=== PATIENT | female | born 1960 | race Caucasian/White ===

== ENCOUNTER → 2016-12-21 | Outpatient (CLI) | payer OTHER ==
[~2016-12-21] MED LIST: ADVIN25/60 INH; ALBU1AER9 INH; ASCO500T16 PO; ATOR-24 PO; BUSP15TA70 PO; CGN1 PO; CHOL100010 PO; CLON2TAB3 PO; CLOP1TAB15 PO; CYAN10005 PO; DEXL60CA4 PO; FERR325T51 PO; INSDGIPEN SQ; LEVO137T3 PO; LOSA50TA6 PO; LURA1TAB PO; MELO7.5T5 PO; METF1TAB53 PO; MULT-506 PO; NVLGI SC; PRAM0.256 PO; PRAM1TAB52 PO; PRAZ1CAP10 PO; PREG1CAP28 PO; RANI300T2 PO; VENL150C PO
[2016-12-21 13:09] LABS: BASO % 0.5 %; BASO ABS # 0.04 K/uL (0-0.2); COMPLETE YES; EOS % 4.3 %; HEMATOCRIT 38.5 % (37-47); IG% 0.1 %; LYMPH % 17.1 %; LYMPH ABS # 1.31 K/uL (1.2-3.4); MEAN CELL VOLUME 85.7 fL (80-100); MEAN CORPUSCULAR HEMOGLOBIN 28.5 pg (25-34); MEAN CORPUSCULAR HGB CONC 33.2 g/dl (32-36); MEAN PLATELET VOLUME 10.3 fL (7.4-10.4); MONO % 7.7 %; NEUT % 70.3 %; PLATELET COUNT 212 K/uL (130-400); RED BLOOD COUNT 4.49 M/uL (4.2-5.4); WHITE BLOOD COUNT 7.66 K/uL (4.8-10.8)
[2016-12-21 13:27] LABS: ESTIMATED AVERAGE GLUCOSE 206 mg/dl; HA1C FLAG Normal (Normal)
[2016-12-21 13:45] LABS: FERRITIN 125.1 ng/ml (8.0-388.0); THYROID STIMULATING HORMONE 0.733 uIu/ml (0.300-4.500)
[2016-12-21 14:02] LABS: RATIO 53.1 mcg/mg (0-30.0)
== END | disposition home or self-care (01) ==
LOC: C.LAB1850 11:33
PROVIDERS: ATTEND Internal Medicine
DX: E03.9 Hypothyroidism, unspecified (principal); M25.50 Pain in unspecified joint; E11.8 Type 2 diabetes mellitus with unspecified complications

== ENCOUNTER → 2017-04-01 | Outpatient (CLI) | payer OTHER ==
--- NOTE | 2017-04-01 11:54 | DIAGNOSTIC IMAGING REPORT ---
MRI OF THE LUMBAR SPINE WITHOUT IV CONTRAST CLINICAL HISTORY: Inwgvtn-Wjjggfcbi-Xwmun syndrome. Chronic low back pain. Lower extremity radiculopathy. Spinal stenosis. COMPARISON STUDY: MRI lumbar spine dated 01/01/2014. TECHNIQUE: MRI of the lumbar spine is performed using various T1 and T2-weighted sequences in the axial and sagittal planes. IV contrast was not administered for this examination. FINDINGS: Lumbar spine: Vertebral body height and alignment are maintained throughout the lumbar spine. Marrow signal intensity is heterogeneous. The transverse and spinous processes appear intact. There is no evidence of spondylolysis. No destructive bony lesion is seen. Tiny anterior osteophytes are seen at L4 and L5. Intervertebral discs: Mild degenerative disc desiccation is noted. Disc height is maintained. Spinal cord: The partially imaged spinal cord is normal in morphology and signal intensity. The conus medullaris terminates at the level of L1. The nerve roots of the cauda equina are normal in morphology. L1-L2: Unremarkable. L2-L3: Unremarkable. L3-L4: There is no significant disc bulge. Facet arthropathy is of no consequence. There is mild narrowing of the central canal at this level, likely on a congenital basis. This measures a minimum of 8.5 mm in AP diameter. L4-L5: There is minimal posterior disc bulge. In conjunction with hypertrophy of the ligamentum flavum there is minimal acquired compromise of central canal at this level. Central canal narrowing is largely on a congenital basis. The minimum AP diameter measures 8 mm. There is mild bilateral subarticular stenosis. The disc bulge may abut the exiting right L4 nerve root. Facet arthropathy is of no consequence. The neural foramina are widely patent. L5-S1: There is minimal disc bulge with annular fissure. The central canal is widely patent. Facet arthropathy causes minimal right-sided neural foraminal stenosis. Sacrum: Visualized sacrum is normal in morphology and signal intensity. Soft tissues: There is fatty atrophy of the paraspinous musculature. The partially imaged retroperitoneal structures are grossly unremarkable but incomplete assessed. IMPRESSION: 1. No acute bony abnormality is identified throughout the lumbar spine. 2. Lumbosacral spondylosis as above. There is mild narrowing of the central canal at L3-L4 and L4-L5, largely on a congenital basis. See discussion for detailed level analysis. Electronically signed by: Gaurav Fisher M.D. 04/01/2017 11:52 AM Dictated Date/Time: 04/01/2017 11:44 AM
== END | disposition home or self-care (01) ==
LOC: C.MRI 10:15
PROVIDERS: ATTEND Internal Medicine
DX: M48.06 Spinal stenosis, lumbar region (principal); Q87.2 Congenital malformation syndromes predominantly involving limbs

== ENCOUNTER → 2017-04-08 | Outpatient (CLI) | payer OTHER ==
--- NOTE | 2017-04-08 10:34 | DIAGNOSTIC IMAGING REPORT ---
LEFT HIP UNILATERAL 2 VIEWS CLINICAL HISTORY: Q87.2 [id number] Spinal stenosis both COMPARISON: None. DISCUSSION: The bones and joint spaces appear intact. There is no evidence of fracture, dislocation or bony disease. There is no evidence for soft tissue swelling. IMPRESSION: Negative study. Electronically signed by: Jose Mariscal M.D. 04/08/2017 10:33 AM Dictated Date/Time: 04/08/2017 10:33 AM
--- NOTE | 2017-04-08 10:35 | DIAGNOSTIC IMAGING REPORT ---
RIGHT HIP UNILATERAL 2 VIEWS CLINICAL HISTORY: Q87.2 [id number] Spinal stenosis both Right COMPARISON: None. DISCUSSION: The bones and joint spaces appear intact. There is no evidence of fracture, dislocation or bony disease. There is no evidence for soft tissue swelling. IMPRESSION: Negative study. Electronically signed by: Jose Mariscal M.D. 04/08/2017 10:34 AM Dictated Date/Time: 04/08/2017 10:34 AM
--- NOTE | 2017-04-08 10:38 | DIAGNOSTIC IMAGING REPORT ---
CHEST 2 VIEWS ROUTINE CLINICAL HISTORY: 56 years-old Female presenting with shortness of breath on exertion. TECHNIQUE: PA and lateral views of the chest were obtained. COMPARISON: CT chest from 03/30/2016 and chest x-ray from 11/11/2015. FINDINGS: Cardiomediastinal silhouette within normal limits. Multiple calcified mediastinal lymph nodes again noted. Lungs and pleural spaces clear. Osseous structures and upper abdomen normal. IMPRESSION: 1. No acute cardiopulmonary disease. Electronically signed by: Ulises Mcfarland 04/08/2017 10:36 AM Dictated Date/Time: 04/08/2017 10:34 AM
== END | disposition home or self-care (01) ==
LOC: C.RAD1850 09:59
PROVIDERS: ATTEND Internal Medicine
DX: M48.00 Spinal stenosis, site unspecified (principal); Q87.2 Congenital malformation syndromes predominantly involving limbs; R06.02 Shortness of breath

== ENCOUNTER → 2017-06-29 | Outpatient (CLI) | payer OTHER ==
[2017-06-29 12:35] LABS: BLOOD UREA NITROGEN 7 mg/dl (7-18); BUN/CREATININE RATIO 7.7 (10-20); CALCIUM 8.9 mg/dl (8.5-10.1); CARBON DIOXIDE 26 mmol/L (21-32); CHLORIDE 105 mmol/L (98-107); CREATININE 0.95 mg/dl (0.60-1.20); GLUCOSE 261 mg/dl (70-99); POTASSIUM 3.7 mmol/L (3.5-5.1); SODIUM 140 mmol/L (136-145)
[2017-06-29 12:41] LABS: ESTIMATED AVERAGE GLUCOSE 229 mg/dl; HA1C FLAG Normal (Normal)
[2017-06-29 12:55] LABS: THYROID STIMULATING HORMONE 0.538 uIu/ml (0.300-4.500)
== END | disposition home or self-care (01) ==
LOC: C.LAB1850 10:21
PROVIDERS: ATTEND Internal Medicine
DX: E03.9 Hypothyroidism, unspecified (principal); E11.42 Type 2 diabetes mellitus with diabetic polyneuropathy

== ENCOUNTER → 2017-09-30 | Outpatient (CLI) | payer OTHER ==
[2017-09-30 13:07] LABS: MEAN CELL VOLUME 88.3 fL (80-100); MEAN CORPUSCULAR HEMOGLOBIN 28.7 pg (25-34); MEAN CORPUSCULAR HGB CONC 32.5 g/dl (32-36); MEAN PLATELET VOLUME 10.1 fL (7.4-10.4); PLATELET COUNT 246 K/uL (130-400); RED BLOOD COUNT 4.53 M/uL (4.2-5.4)
[2017-09-30 13:39] LABS: BLOOD UREA NITROGEN 11 mg/dl (7-18); BUN/CREATININE RATIO 10.5 (10-20); CALCIUM 9.4 mg/dl (8.5-10.1); CARBON DIOXIDE 25 mmol/L (21-32); CHLORIDE 105 mmol/L (98-107); CREATININE 1.09 mg/dl (0.60-1.20); GLUCOSE 173 mg/dl (70-99); POTASSIUM 3.6 mmol/L (3.5-5.1); SODIUM 137 mmol/L (136-145)
[2017-09-30 13:51] LABS: CHOLESTEROL 160 mg/dl (0-200); HDL CHOLESTEROL 40 mg/dl; LDL CHOLESTEROL CALCULATED 72 mg/dl; TRIGLYCERIDES 241 mg/dl (0-150); VERY LOW DENSITY LIPOPROT CALC 48 mg/dl
[2017-10-01 06:26] LABS: ESTIMATED AVERAGE GLUCOSE 203 mg/dl; HA1C FLAG Normal (Normal)
== END | disposition home or self-care (01) ==
LOC: C.LAB1850 11:26
PROVIDERS: ATTEND Nurse Practitioner Family
DX: E11.8 Type 2 diabetes mellitus with unspecified complications (principal); Z79.899 Other long term (current) drug therapy; E53.8 Deficiency of other specified B group vitamins; E55.9 Vitamin D deficiency, unspecified; E03.9 Hypothyroidism, unspecified; I10 Essential (primary) hypertension; Q87.2 Congenital malformation syndromes predominantly involving limbs

== ENCOUNTER → 2017-11-17 | Day surgery (SDC) | payer OTHER ==
[2017-11-05 11:37] VITALS: Ht 165.1 cm; Wt 130.9 kg
[~2017-11-17] VITALS: Ht 165.1 cm; Wt 130.9 kg
[~2017-11-17] MED LIST changes: -ADVIN25/60 INH; +ADVIN25050 INH; +ALBU18002 NAE; -ALBU1AER9 INH; -ATOR-24 PO; +ATOR80TA PO; +BENZ-89 PO; -CGN1 PO; +CHOL1000 PO; -CHOL100010 PO; +EFFSR75 PO; +FENTANYL CITRATE INJ 50 MCG/1 ML 2 ML VIAL ONE; +FERR1TAB13 PO; -FERR325T51 PO; -LEVO137T3 PO; +LEVO150T PO; +LIDOCAINE HCL 2% 2 ML VIAL (20MG/ML) ONE; -LURA1TAB PO; +LURA80TA PO; +MELA1TAB22 PO; -NVLGI SC; +NVLGI/PEN SC; -PRAM0.256 PO; -PRAM1TAB52 PO; +PROPOFOL IV EMULSION 10 MG/ML 20 ML VIAL IV ONE; +QUET1TAB32 PO; +ROPI1TAB PO; +SODIUM CHLORIDE 0.9% 500ML 500 ML IV ONE; +SUCR1TAB29 PO; -VENL150C PO; +VENL150C56 PO
--- NOTE | 2017-11-17 09:31 | Endo History and Physical ---
History & Physical Date of Service: Nov 17, 2017. Chief Complaint: epigastric pain, reflux Referring Physician: Dr. Karimi History of Present Illness 57 yo CF who presents for EGD secondary to GERD and Epigastric pain. Past Medical History Diabetes, Arthritis, Asthma, Anxiety, Reflux, High Cholesterol, Sleep Apnea, Hypertension, Thyroid Disease, Depression Past Surgical History Hx Cardiac Surgery: No Hx Internal Defibrillator: No Hx Pacemaker: No Hx Abdominal Surgery: Yes (UMBILICAL CORD RUPTURE) Hx of Implantable Prosthesis: No Hx Post-Op Nausea and Vomiting: No Hx Cancer Surgery: No Hx Thoracic Surgery: No Hx Orthopedic: Yes (LEG VEIN SURGERY) Hx Urinary Tract Surgery: No Family History Colon CA Social History Smoking Status: Never Smoker Hx Substance Use: No Hx Alcohol Use: No Allergies Coded Allergies: Adhesives (Verified Allergy, Unknown, TAPE, 11/17/17) Aminoglycosides (Verified Allergy, Unknown, ., 11/17/17) Azithromycin (Verified Allergy, Unknown, HIVES, 11/17/17) Bacitracin (Verified Allergy, Unknown, RASH, 11/17/17) Cephalosporins (Verified Allergy, Unknown, KEFLEX, 11/17/17) Ciprofloxacin (Verified Allergy, Unknown, EYE SWELLING, 11/17/17) Clavulanic Acid (Verified Allergy, Unknown, ., 11/17/17) Erythromycin (Verified Allergy, Unknown, HIVES, 11/17/17) Hydroxyzine (Verified Allergy, Unknown, PT DOESN'T REMEMBER REACTION, 11/17) Minocycline (Verified Allergy, Unknown, HIVES, 11/17/17) Mupirocin (Verified Allergy, Unknown, RASH, 11/17/17) Neomycin (Verified Allergy, Unknown, RASH, 11/17/17) Penicillins (Verified Allergy, Unknown, HIVES, 11/17/17) Polymyxin B (Verified Allergy, Unknown, RASH, 11/17/17) Quinolones (Verified Allergy, Unknown, LEVAQUIN, 11/17/17) Tetracycline (Verified Allergy, Unknown, HIVES, 11/17/17) Topiramate (Verified Allergy, Unknown, SOB,DIZZINESS, 11/17/17) Aspirin (Verified Adverse Reaction, Intermediate, NOSEBLEEDS- CAN TAKE IBUPROFEN, 11/17/17) Current Medications Reported Home Medications Medications Dose Route/Sig Max Daily Dose Days Date Category Dose Instructions Melatonin (Melatonin-Pyridoxine) 1 Tab Tab 40 Mg PO HS 11/05/17 Reported Requip (Ropinirole HCl) 1 Mg Tab 1 Mg PO BID 11/05/17 Reported Seroquel (Quetiapine Fumarate) 50 Mg Tab 50 Mg PO HS 11/05/17 Reported Carafate (Sucralfate) 1 Gm Tab 1 Gm PO TID 11/05/17 Reported Effexor Extended Rel (Venlafaxine Hcl) 150 Mg Cap 2 Tabs PO HS 11/05/17 Reported Novolog Flexpen (Insulin Aspart) 100 Units/Ml Inj 15 Units SC TIDM 11/05/17 Reported +SLIDING SCALE Advair Diskus 250-50 Mcg/Dose (Fluticasone Prop/Salmeterol) 14 Puff/1 Inhaler Aerp 2 Puffs INH BID PRN 11/05/17 Reported Kp Ferrous Sulfate (Ferrous Sulfate) 325 Mg Tab 1 Tab PO BID 11/05/17 Reported Vitamin D3 (Cholecalciferol) 1,000 Unit Tab 3 Tabs PO DAILY 11/05/17 Reported Cogentin (Benztropine Mesylate) 1 Mg Tab 1 Mg PO HS 11/05/17 Reported Proair Respiclick (Albuterol Sulfate) 108 Mcg/Act Aer 2 [place] NEERAJ Q4H PRN 11/05/17 Reported Effexor Extended Rel (Venlafaxine Hcl) 75 Mg Capcr 75 Mg PO QPM 11/05/17 Reported Latuda (Lurasidone Hcl) 80 Mg Tab 80 Mg PO HS 11/05/17 Reported Synthroid (Levothyroxine Sodium) 150 Mcg Tab 150 Mcg PO QAM 11/05/17 Reported Lipitor (Atorvastatin) 80 Mg Tab 80 Mg PO HS 11/05/17 Reported Zantac (Ranitidine HCl) 300 Mg Tab 300 Mg PO QPM 01/04/16 Reported Ascorbic Acid 500 Mg Tab Unknown Dose PO DAILY 01/04/16 Reported Glucophage Ext Rel (Metformin Hcl) 1,000 Mg Tab 1,000 Mg PO BIDM 01/04/16 Reported Klonopin (Clonazepam) 2 Mg Tab 4 Mg PO HS 01/04/16 Reported Cozaar (Losartan Potassium) 50 Mg Tab 50 Mg PO QAM 02/21/15 Reported Lantus Solostar (Insulin Glargine) 100 Unit/Ml Inj 70 Units SQ HS 12/10/14 Reported Mobic (Meloxicam) 7.5 Mg Tab 7.5 Mg PO DAILY PRN 09/29/13 Reported Vitamin B-12 (Cyanocobalamin) 1,000 Mcg Tab 1,000 Mcg PO BID 09/11/13 Reported Dexilant (Dexlansoprazole) 60 Mg Cap 60 Mg PO QAM 09/11/13 Reported Buspar (Buspirone Hcl) 15 Mg Tab 15 Mg PO BID 04/18/13 Reported Lyrica (Pregabalin) 75 Mg Cap 150 Mg PO TID 07/22/10 Reported Prazosin (Prazosin HCl) 1 Mg Cap 3 Tabs PO HS 10/24/09 Reported Plavix (Clopidogrel Bisulfate) 75 Mg Tab 75 Mg PO QAM 07/04/09 Reported Vital Signs Weight (Kilograms): 130.91 Height (Feet): 5 Height (Inches): 5 Date Time Temp Pulse Resp B/P (MAP) Pulse Ox O2 Delivery O2 Flow Rate FiO2 11/17/17 09:28 37.1 96 18 108/70 (83) 94 Room Air Physical Exam General Appearance: WD/WN, no apparent distress Respiratory/Chest: Auscultation: breath sounds normal Cardiovascular: Heart Auscultation: RRR Abdomen: Bowel Sounds: normal Inspection & Palpation: soft, non-distended, no tenderness, guarding & rebound Assessment and Plan Assessment: 57 yo CF who presents for EGD secondary to GERD and Epigastric pain. Plan: Proceed with EGD.
--- NOTE | 2017-11-17 10:11 | Discharge Instructions ---
Endoscopy Patient Instructions Date / Procedure(s) Performed Nov 17, 2017. EGD Allergy Information Coded Allergies: Adhesives (Verified Allergy, Unknown, TAPE, 11/17/17) Aminoglycosides (Verified Allergy, Unknown, ., 11/17/17) Azithromycin (Verified Allergy, Unknown, HIVES, 11/17/17) Bacitracin (Verified Allergy, Unknown, RASH, 11/17/17) Cephalosporins (Verified Allergy, Unknown, KEFLEX, 11/17/17) Ciprofloxacin (Verified Allergy, Unknown, EYE SWELLING, 11/17/17) Clavulanic Acid (Verified Allergy, Unknown, ., 11/17/17) Erythromycin (Verified Allergy, Unknown, HIVES, 11/17/17) Hydroxyzine (Verified Allergy, Unknown, PT DOESN'T REMEMBER REACTION, 11/17) Minocycline (Verified Allergy, Unknown, HIVES, 11/17/17) Mupirocin (Verified Allergy, Unknown, RASH, 11/17/17) Neomycin (Verified Allergy, Unknown, RASH, 11/17/17) Penicillins (Verified Allergy, Unknown, HIVES, 11/17/17) Polymyxin B (Verified Allergy, Unknown, RASH, 11/17/17) Quinolones (Verified Allergy, Unknown, LEVAQUIN, 11/17/17) Tetracycline (Verified Allergy, Unknown, HIVES, 11/17/17) Topiramate (Verified Allergy, Unknown, SOB,DIZZINESS, 11/17/17) Aspirin (Verified Adverse Reaction, Intermediate, NOSEBLEEDS- CAN TAKE IBUPROFEN, 11/17/17) Discharge Date / Findings Nov 17, 2017. Gastritis s/p biopsies Medication Instructions Stopped Medication(s): Plavix stopped 11/09/17. OK to resume all medications today as prescribed Reported Home Medications Medications Dose Route/Sig Max Daily Dose Days Date Category Dose Instructions Melatonin (Melatonin-Pyridoxine) 1 Tab Tab 40 Mg PO HS 11/05/17 Reported Requip (Ropinirole HCl) 1 Mg Tab 1 Mg PO BID 11/05/17 Reported Seroquel (Quetiapine Fumarate) 50 Mg Tab 50 Mg PO HS 11/05/17 Reported Carafate (Sucralfate) 1 Gm Tab 1 Gm PO TID 11/05/17 Reported Effexor Extended Rel (Venlafaxine Hcl) 150 Mg Cap 2 Tabs PO HS 11/05/17 Reported Novolog Flexpen (Insulin Aspart) 100 Units/Ml Inj 15 Units SC TIDM 11/05/17 Reported +SLIDING SCALE Advair Diskus 250-50 Mcg/Dose (Fluticasone Prop/Salmeterol) 14 Puff/1 Inhaler Aerp 2 Puffs INH BID PRN 11/05/17 Reported Kp Ferrous Sulfate (Ferrous Sulfate) 325 Mg Tab 1 Tab PO BID 11/05/17 Reported Vitamin D3 (Cholecalciferol) 1,000 Unit Tab 3 Tabs PO DAILY 11/05/17 Reported Cogentin (Benztropine Mesylate) 1 Mg Tab 1 Mg PO HS 11/05/17 Reported Proair Respiclick (Albuterol Sulfate) 108 Mcg/Act Aer 2 [place] NEERAJ Q4H PRN 11/05/17 Reported Effexor Extended Rel (Venlafaxine Hcl) 75 Mg Capcr 75 Mg PO QPM 11/05/17 Reported Latuda (Lurasidone Hcl) 80 Mg Tab 80 Mg PO HS 11/05/17 Reported Synthroid (Levothyroxine Sodium) 150 Mcg Tab 150 Mcg PO QAM 11/05/17 Reported Lipitor (Atorvastatin) 80 Mg Tab 80 Mg PO HS 11/05/17 Reported Zantac (Ranitidine HCl) 300 Mg Tab 300 Mg PO QPM 01/04/16 Reported Ascorbic Acid 500 Mg Tab Unknown Dose PO DAILY 01/04/16 Reported Glucophage Ext Rel (Metformin Hcl) 1,000 Mg Tab 1,000 Mg PO BIDM 01/04/16 Reported Klonopin (Clonazepam) 2 Mg Tab 4 Mg PO HS 01/04/16 Reported Cozaar (Losartan Potassium) 50 Mg Tab 50 Mg PO QAM 02/21/15 Reported Lantus Solostar (Insulin Glargine) 100 Unit/Ml Inj 70 Units SQ HS 12/10/14 Reported Mobic (Meloxicam) 7.5 Mg Tab 7.5 Mg PO DAILY PRN 09/29/13 Reported Vitamin B-12 (Cyanocobalamin) 1,000 Mcg Tab 1,000 Mcg PO BID 09/11/13 Reported Dexilant (Dexlansoprazole) 60 Mg Cap 60 Mg PO QAM 09/11/13 Reported Buspar (Buspirone Hcl) 15 Mg Tab 15 Mg PO BID 04/18/13 Reported Lyrica (Pregabalin) 75 Mg Cap 150 Mg PO TID 07/22/10 Reported Prazosin (Prazosin HCl) 1 Mg Cap 3 Tabs PO HS 10/24/09 Reported Plavix (Clopidogrel Bisulfate) 75 Mg Tab 75 Mg PO QAM 07/04/09 Reported Provider Instructions Activity Restrictions - No exercising or heavy lifting for 24 hours. - Do not drink alcohol the day of the procedure. - Do not drive a car or operate machinery until the day after the procedure. - Do not make any important decisions or sign important papers in 24 hours after the procedure. Following Day: - Return to full activity which may include returning to work/school. Diet Start your diet with liquids and light foods (jello, soup, juice, toast). Then eat your usual diet if not nauseated. Treatment For Common After Affects For mild abdominal pain, bloating, or excessive gas: - Rest - Eat lightly - Lie on right side Follow-Up Information Follow-up with Dr. Karimi as scheduled Anesthesia Information What You Should Know You have had a procedure that required some medicine to reduce anxiety and discomfort. This treatment is called moderate sedation. After receiving the treatment, you may be sleepy, but you will be able to breathe on your own. The effects of the treatment may last for several hours. Follow these instructions along with Activity/Diet recommendations noted above: * Do NOT do anything where dizziness or clumsiness would be dangerous. * Rest quietly at home today, then you can be up and about tomorrow. * Have a responsible person stay with you the rest of today. * You may have had an I.V. today. If so, you may take the dressing off later today. Recommendations Call your doctor if: * Trouble breathing * Continuous vomiting for more than 24 hours * Temperature above 101 degrees * Severe abdominal pain or bloating * Pain not relieved by pain medicine ordered * There is increased drainage or redness from any incision * A large amount of rectal bleeding greater than 2-3 tablespoons. (If you had a polyp/s removed or have hemorrhoids, a small amount of blood - from the rectum is to be expected.) * You have any unanswered questions or concerns. IN THE EVENT OF A SERIOUS EMERGENCY, GO TO THE NEAREST EMERGENCY ROOM Your discharge instructions were prepared by provider Lennox Franklin. Patient Instructions Signature Page Calista Pickering Patient (or Guardian) Signature/Date: I have read and understand the instructions given to me by my caregivers. Caregiver/RN/Doctor Signature/Date: The above-named patient and/or guardian has received patient instructions on this date. + Original Patient Signature Page (only) stays with chart. Please make copy for patient.
--- NOTE | 2017-11-17 10:20 | GI REPORT ---
Procedure Date: 11/17/2017 9:56 AM Procedure: Upper GI endoscopy Indications: Epigastric abdominal pain Medicines: Monitored Anesthesia Care Complications: No immediate complications. Estimated Blood Loss: Estimated blood loss: none. Procedure: Pre-Anesthesia Assessment: - Prior to the procedure, a History and Physical was performed, and patient medications and allergies were reviewed. The patient's tolerance of previous anesthesia was also reviewed. The risks and benefits of the procedure and the sedation options and risks were discussed with the patient. All questions were answered, and informed consent was obtained. Prior Anticoagulants: The patient has taken Plavix (clopidogrel), last dose was 7 days prior to procedure. ASA Grade Assessment: III - A patient with severe systemic disease. After reviewing the risks and benefits, the patient was deemed in satisfactory condition to undergo the procedure. After obtaining informed consent, the endoscope was passed under direct vision. Throughout the procedure, the patient's blood pressure, pulse, and oxygen saturations were monitored continuously. The scope was introduced through the mouth, and advanced to the second part of duodenum. The upper GI endoscopy was accomplished without difficulty. The patient tolerated the procedure well. Findings: The esophagus was normal. Localized moderate inflammation characterized by erythema was found in the gastric antrum. Biopsies were taken with a cold forceps for histology. The examined duodenum was normal. Impression: - Normal esophagus. - Gastritis. Biopsied. - Normal examined duodenum. Recommendation: - Resume previous diet. - Continue present medications. - Await pathology results. - Return to primary care physician as previously scheduled. Lennox Franklin, DO 11/17/2017 10:20:23 AM This report has been signed electronically. Note Initiated On: 11/17/2017 9:56 AM I attest to the content of the Intraoperative Record and orders documented therein, exceptions below
[2017-11-17 10:43] VITALS: BP 116/70; PULSE 87; O2SAT 96
--- NOTE | 2017-11-17 11:00 | Anesthesiology Progress Note ---
Anesthesia Post Op Note Date & Time Nov 17, 2017 at 11:00 Vital Signs Pain Intensity: 0 Vital Signs Past 12 Hours Date Time Temp Pulse Resp B/P (MAP) Pulse Ox O2 Delivery O2 Flow Rate FiO2 11/17/17 10:43 87 18 116/70 (85) 96 Room Air 11/17/17 10:28 93 18 107/68 (81) 96 Room Air 11/17/17 10:13 94 18 93/72 (79) 96 Room Air 11/17/17 09:28 37.1 96 18 108/70 (83) 94 Room Air Notes Mental Status: alert / awake / arousable, participated in evaluation Pt Amnestic to Procedure: Yes Nausea / Vomiting: adequately controlled Pain: adequately controlled Airway Patency, RR, SpO2: stable & adequate BP & HR: stable & adequate Hydration State: stable & adequate Anesthetic Complications: no major complications apparent
== END | disposition home or self-care (01) ==
LOC: C.GI 08:49
PROVIDERS: ATTEND Internal Medicine
DX: K29.50 Unspecified chronic gastritis without bleeding (principal); E11.9 Type 2 diabetes mellitus without complications; E66.01 Morbid (severe) obesity due to excess calories; Z86.718 Personal history of other venous thrombosis and embolism; Z68.42 Body mass index [BMI] 45.0-49.9, adult; F32.9 Major depressive disorder, single episode, unspecified; F41.9 Anxiety disorder, unspecified; J45.909 Unspecified asthma, uncomplicated; M19.90 Unspecified osteoarthritis, unspecified site; G47.33 Obstructive sleep apnea (adult) (pediatric); K21.9 Gastro-esophageal reflux disease without esophagitis; Z79.899 Other long term (current) drug therapy; Z79.4 Long term (current) use of insulin; Z79.02 Long term (current) use of antithrombotics/antiplatelets

== ENCOUNTER → 2017-12-02 | Outpatient (CLI) | payer OTHER ==
[~2017-12-02] MED LIST changes: -FENTANYL CITRATE INJ 50 MCG/1 ML 2 ML VIAL ONE; -LIDOCAINE HCL 2% 2 ML VIAL (20MG/ML) ONE; -MULT-506 PO; -PROPOFOL IV EMULSION 10 MG/ML 20 ML VIAL IV ONE; -SODIUM CHLORIDE 0.9% 500ML 500 ML IV ONE
--- NOTE | 2017-12-02 16:10 | DIAGNOSTIC IMAGING REPORT ---
L HIP UNILATERAL 2 VIEWS CLINICAL HISTORY: LEFT HIP PAIN COMPARISON: 04/08/2017 DISCUSSION: No fractures or dislocations are visualized. There are no erosive or destructive changes. The joint space appears well-preserved for age. IMPRESSION: Unremarkable conventional radiographic evaluation of the left hip Electronically signed by: Parish Anna M.D. 12/02/2017 4:09 PM Dictated Date/Time: 12/02/2017 4:08 PM
== END | disposition home or self-care (01) ==
LOC: C.RAD1850 15:34
PROVIDERS: ATTEND Internal Medicine
DX: M25.552 Pain in left hip (principal); E03.9 Hypothyroidism, unspecified; Z11.59 Encounter for screening for other viral diseases

== ENCOUNTER 2018-11-30 12:09 | Inpatient (IN) ==
[2018-11-30] MEDS ORDERED: MoRPHine SULFATE 4 MG/ML 1 ML CARP\\VIAL IV STA (12:58)
[2018-11-30] MEDS ORDERED: ONDANSETRON INJ 2 MG/ML 2 ML VIAL IV STA (12:58)
[2018-11-30 13:18] LABS: Basophils # (auto) 0.02 K/uL (0-0.2); Basophils % (auto) 0.3 %; Eosinophils # (auto) 0.15 K/uL (0-0.5); Eosinophils % (auto) 1.9 %; Hematocrit (blood only) 35.9 % (37-47); Hemoglobin 11.8 g/dL (12.0-16.0); Immature Granulocytes # (auto) 0.01 K/uL (0.00-0.02); Immature Granulocytes % (auto) 0.1 %; Lymphocytes # (auto) 1.55 K/uL (1.2-3.4); Lymphocytes % (auto) 19.6 %; Mean Corpuscular Hgb Conc 32.9 g/dL (32-36); Mean Corpuscular Volume 86.3 fL (80-100); Mean Platelet Volume 9.5 fL (7.4-10.4); Monocytes # (auto) 0.41 K/uL (0.11-0.59); Monocytes % (auto) 5.2 %; Neutrophils # (auto) 5.75 K/uL (1.4-6.5); Neutrophils % (auto) 72.9 %; Platelet Count 193 K/uL (130-400); RDW Coefficient of Variation 14.4 % (11.5-14.5); RDW Standard Deviation 45.1 fL (36.4-46.3); Red Blood Count 4.16 M/uL (4.2-5.4); White Blood Count 7.89 K/uL (4.8-10.8)
[2018-11-30 13:41] LABS: Alanine Aminotransferase 22 U/L (12-78); Albumin Level 3.3 gm/dl (3.4-5.0); Aspartate Aminotransferase 9 U/L (15-37); BUN Creatinine Ratio 10.9 (10-20); Blood Urea Nitrogen 12 mg/dl (7-18); C Reactive Protein < 0.29 mg/dl (0-0.29); Calcium 8.5 mg/dl (8.5-10.1); Carbon Dioxide 27 mmol/L (21-32); Chloride 104 mmol/L (98-107); Creatinine Clr Calc Pharmacy 76.6 ml/min; Est GFR (African American) 66.1; Glucose 336 mg/dl (70-99); Potassium 3.5 mmol/L (3.5-5.1); Sodium 137 mmol/L (136-145)
[2018-11-30 13:43] LABS: Alkaline Phosphatase 138 U/L (45-117); Bilirubin,Total 0.2 mg/dl (0.2-1); Globulin 3.5 gm/dl (2.5-4.0); Total Protein 6.8 gm/dl (6.4-8.2)
[2018-11-30 13:50] LABS: Beta-Hydroxybutyrate 1.52 mg/dl (0.2-2.81)
[2018-11-30 14:02] LABS: INR 1.1 (0.9-1.1); Prothrombin Time 11.3 Seconds (9.0-12.0)
[2018-11-30 14:36] LABS: Appearance Urine Clear (Clear); Bilirubin Urine Negative (Negative); Blood Urine Negative (Negative); Color Urine Yellow; Glucose Urine UA 3+ (Negative); Ketones Urine Negative (Negative); Leukocyte Esterase Urine Negative (Negative); Nitrite Urine Negative (Negative); Protein Urine Negative (Negative); Specific Gravity Urine 1.031 (1.000-1.030); Urobilinogen Urine Negative (Negative)
--- NOTE | 2018-11-30 15:03 | History & Physical Report ---
Date of Service November 30, 2018 Assessment & Plan (1) Epidural hematoma: Patient on Plavix, worsening back pain since October. She has frequent falls but denies recent trauma. No neurological deficits -Admit to medical floor -Neuro checks q 4 hours -Hold Plavix -Ortho consult - appreciate assistance with this case -Morphine as needed for pain control -Zofran as needed for nausea (2) Diabetes: Elevated blood sugar today. Patient reports that her blood sugar has been running in the 330's over the last few days. She reports compliance with her medications. Last HgAIC 08/19/18=8.7 -Lantus 60u qHS -ISS -Continue to monitor (3) Hypertension: Blood pressure mildly elevated at present. -Continue Losartan -Continue to monitor (4) Asthma: No respiratory distress at present. No wheeze -Albuterol PRN (5) Sleep apnea: -CPAP qHS (6) Hypothyroid: -Continue Synthroid (7) Depression: -Continue home medications -Regimen clarified with Pharmacy History of Present Illness Primary Care Provider: Ethan Karimi MD Patient is a 58yo female with multiple medical problems presenting with back pain. MRI performed today which revealed a large epidural fluid collection concerning for hematoma, less likely infection. Patient is on Plavix for history of DVT. Patient states that she has had chronic back pain for years which has been progressively worsening since October. She was taking Meloxicam for the pain but it has not been working. She denies numbness or tingling in her lower extremities. She has a stable chronic LE weakness that she reports as unchanged. No bowel or bladder complaints. She denies fevers/chills/sweats/malaise or recent illness. No additional complaints at this time. Allergies Allergy/AdvReac Type Severity Reaction Status Date / Time adhesive Allergy Unknown TAPE Verified 11/30/18 13:59 Aminoglycosides Allergy Unknown . Verified 11/30/18 13:59 bacitracin Allergy Unknown RASH Verified 11/30/18 13:59 Cephalosporins Allergy Unknown KEFLEX Verified 11/30/18 13:59 Cipro Allergy Unknown EYE Verified 11/17/17 09:11 SWELLING ciprofloxacin Allergy Unknown EYE Verified 11/30/18 13:59 SWELLING clavulanic acid Allergy Unknown . Verified 11/30/18 13:59 erythromycin base Allergy Unknown HIVES Verified 11/30/18 13:59 hydroxyzine Allergy Unknown PT DOESN'T Verified 11/30/18 13:59 REMEMBER REACTION minocycline Allergy Unknown HIVES Verified 11/30/18 13:59 mivacurium Allergy Unknown HIVES Verified 11/30/18 13:59 mupirocin Allergy Unknown RASH Verified 11/30/18 13:59 neomycin Allergy Unknown RASH Verified 11/30/18 13:59 Penicillins Allergy Unknown HIVES Verified 11/30/18 13:59 polymyxin B Allergy Unknown RASH Verified 11/30/18 13:59 Quinolones Allergy Unknown LEVAQUIN Verified 11/30/18 13:59 tetracycline Allergy Unknown HIVES Verified 11/30/18 13:59 topiramate Allergy Unknown SOB,DIZZINE Verified 11/30/18 13:59 SS aspirin AdvReac Intermediate NOSEBLEEDS- Verified 11/30/18 13:59 CAN TAKE IBUPROFEN Home Medications Home Medications Medication Instructions Recorded Confirmed Type atorvastatin [Lipitor] 80 mg PO DAILY 06/14/18 11/30/18 History benztropine 0.5 mg PO QAM 06/14/18 11/30/18 History benztropine 1 mg PO HS 06/14/18 11/30/18 History buspirone 15 mg PO BID 06/14/18 11/30/18 History calcium carbonate [Calcium 600] 600 mg PO BID 06/14/18 11/30/18 History clopidogrel [Plavix] 75 mg PO DAILY 06/14/18 11/30/18 History cyanocobalamin (vitamin B-12) 1,000 mcg PO DAILY 06/14/18 11/30/18 History [Vitamin B-12] dexlansoprazole [Dexilant] 60 mg PO DAILY 06/14/18 11/30/18 History dulaglutide [Trulicity] 1 dose SUBCUT WK 06/14/18 11/30/18 History ferrous sulfate [iron] 325 mg PO BID 06/14/18 11/30/18 History insulin glargine [Lantus Solostar 60 units SUBCUT HS 06/14/18 11/30/18 History U-100 Insulin] levothyroxine [Synthroid] 200 mcg PO DAILY 06/14/18 11/30/18 History losartan [Cozaar] 50 mg PO DAILY 06/14/18 11/30/18 History meloxicam [Mobic] 7.5 mg PO BID PRN 06/14/18 11/30/18 History metformin [Glucophage XR] 1,000 mg PO BID 06/14/18 11/30/18 History pregabalin [Lyrica] 150 mg PO TID 06/14/18 11/30/18 History venlafaxine [Effexor XR] 75 mg PO HS 06/14/18 11/30/18 History venlafaxine [Effexor XR] 300 mg PO HS 06/14/18 11/30/18 History albuterol sulfate [Ventolin HFA] 1 - 2 puff INHALATION Q4H PRN 11/30/18 11/30/18 History cholecalciferol (vitamin D3) 1 cap PO DAILY 11/30/18 11/30/18 History [Vitamin D3] clonazepam 0.25 mg PO BID 11/30/18 11/30/18 History clonazepam 2 tab PO HS 11/30/18 11/30/18 History fluticasone-salmeterol [Advair HFA] 11/30/18 History insulin aspart U-100 [Novolog 1 dose SUBCUT DIRECTED 11/30/18 11/30/18 History Flexpen U-100 Insulin] lurasidone [Latuda] 40 mg PO HS 11/30/18 11/30/18 History lurasidone [Latuda] 80 mg PO HS 11/30/18 11/30/18 History multivitamin 1 tab PO DAILY 11/30/18 11/30/18 History polyethylene glycol 3350 1 - 2 dose PO DAILY 11/30/18 11/30/18 History prazosin 1 mg PO DAILY 11/30/18 11/30/18 History prazosin 2 mg PO DAILY 11/30/18 11/30/18 History quetiapine 1 tab PO HS 11/30/18 11/30/18 History quetiapine 50 mg PO AMHS 11/30/18 11/30/18 History ranitidine HCl 300 mg PO DAILY 11/30/18 11/30/18 History ropinirole mg PO 11/30/18 History sucralfate 1 tab PO TID 11/30/18 11/30/18 History Past Med/Surg History Medical History Cellulitis (Chronic) Depression (Chronic) Staph infection (Chronic) Diabetes (Chronic) Hypertension (Chronic) Asthma (Chronic) Stomach problems (Chronic) Sleep apnea (Chronic) 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) Loss of sensation (Resolved) Neuropathy (Resolved) Family History Other Diabetes No pertinent family history Social History Preferred Language: Telugu Communication Ability: Effective Technical Service Specialist Required: No Beliefs That Will Affect Care: None Current Living Situation: Alone Current Living Situation Comment: Patient lives alone in a Townhouse Other Information That Helps Us Care for You: No Feels Safe at Home: Hesitant to Answer Safety Concerns: Afraid for Self Smoking Status: Never smoker Hx Alcohol Use: Yes Hx Substance Use: No Review of Systems All systems reviewed & are unremarkable except as noted in HPI & below Physical Exam Vital Signs (Past 24 Hours): Last Vital Signs Temp 36.6 C 11/30/18 12:16 Pulse 89 11/30/18 14:59 Resp 20 11/30/18 14:59 BP 142/93 H 11/30/18 14:59 Pulse Ox 93 11/30/18 14:59 Physical Exam: General: patient resting comfortably, NAD, non-toxic in appearance, AA&O x 4, affect flat Skin: warm, dry, intact, no rashes or lesions HEENT: NC/AT, PERRL, EOMI, anicteric sclera, conjunctiva without injection, external ear normal to inspection and nontender, nares patent, moist mucus membranes, dentition intact, no oropharyngeal lesions, neck supple, trachea midline, no LAD, no thyromegaly, no JVD Heart: +S1/S2, regular, no m/r/g Lungs: equal air entry bilaterally, no rales/rhonchi/wheezes Abd: +BS, soft, NT/ND, no masses/organomegaly/ascites Ext: warm, 2+ pulses in UE/LE bilaterally, no clubbing/cyanosis or edema Neuro: nonfocal, patient AA&O x 4, speech intact, no facial droop, moving all extremities on command with equal strength 5/5 Results & Data Laboratory Results Lab Results 11/30/18 11/30/18 11/30/18 Range/Units 13:10 13:10 13:10 WBC 7.89 (4.8-10.8) K/uL RBC 4.16 L (4.2-5.4) M/uL Hgb 11.8 L (12.0-16.0) g/dL Hct 35.9 L (37-47) % MCV 86.3 (80-100) fL MCH 28.4 (25-34) pg MCHC 32.9 (32-36) g/dL RDW Std Deviation 45.1 (36.4-46.3) fL RDW Coeff of Aleah 14.4 (11.5-14.5) % Plt Count 193 (130-400) K/uL MPV 9.5 (7.4-10.4) fL Immature Gran % (Auto) 0.1 % Neut % (Auto) 72.9 % Lymph % (Auto) 19.6 % [place] % (Auto) 5.2 % Eos % (Auto) 1.9 % Baso % (Auto) 0.3 % Immature Gran # (Auto) 0.01 (0.00-0.02) K/uL Neut # (Auto) 5.75 (1.4-6.5) K/uL Lymph # (Auto) 1.55 (1.2-3.4) K/uL [place] # (Auto) 0.41 (0.11-0.59) K/uL Eos # (Auto) 0.15 (0-0.5) K/uL Baso # (Auto) 0.02 (0-0.2) K/uL ESR (0-21) mm/hr PT Cancelled INR Cancelled Sodium 137 (136-145) mmol/L Potassium 3.5 (3.5-5.1) mmol/L Chloride 104 (98-107) mmol/L Carbon Dioxide 27 (21-32) mmol/L Anion Gap 6.0 (3-11) BUN 12 (7-18) mg/dl Creatinine 1.06 (0.6-1.2) mg/dl Est Cr Clr Drug Dosing 76.6 ml/min Est GFR ( Amer) 66.1 Est GFR (Non-Af Amer) 57.0 BUN/Creatinine Ratio 10.9 (10-20) Glucose 336 H (70-99) mg/dl Calcium 8.5 (8.5-10.1) mg/dl Phosphorus (2.5-4.9) mg/dl Magnesium (1.8-2.4) mg/dl Total Bilirubin 0.2 (0.2-1) mg/dl AST 9 L (15-37) U/L ALT 22 (12-78) U/L Alkaline Phosphatase 138 H (45-117) U/L C-Reactive Protein < 0.29 (0-0.29) mg/dl Total Protein 6.8 (6.4-8.2) gm/dl Albumin 3.3 L (3.4-5.0) gm/dl Globulin 3.5 (2.5-4.0) gm/dl Albumin/Globulin Ratio 1.0 (0.9-2) Lipase 252 (73-393) U/L Beta-Hydroxybutyric Acd 1.52 (0.2-2.81) mg/dl Urine Color Urine Appearance (Clear) Urine pH (4.5-7.5) Ur Specific [place] (1.000-1.030) Urine Protein (Negative) Urine Glucose (UA) (Negative) Urine Ketones (Negative) Urine Blood (Negative) Urine Nitrite (Negative) Urine Bilirubin (Negative) Urine Urobilinogen (Negative) Ur Leukocyte Esterase (Negative) 11/30/18 11/30/18 11/30/18 Range/Units 13:10 13:40 13:44 WBC (4.8-10.8) K/uL RBC (4.2-5.4) M/uL Hgb (12.0-16.0) g/dL Hct (37-47) % MCV (80-100) fL MCH (25-34) pg MCHC (32-36) g/dL RDW Std Deviation (36.4-46.3) fL RDW Coeff of Aleah (11.5-14.5) % Plt Count (130-400) K/uL MPV (7.4-10.4) fL Immature Gran % (Auto) % Neut % (Auto) % Lymph % (Auto) % [place] % (Auto) % Eos % (Auto) % Baso % (Auto) % Immature Gran # (Auto) (0.00-0.02) K/uL Neut # (Auto) (1.4-6.5) K/uL Lymph # (Auto) (1.2-3.4) K/uL [place] # (Auto) (0.11-0.59) K/uL Eos # (Auto) (0-0.5) K/uL Baso # (Auto) (0-0.2) K/uL ESR 24 H (0-21) mm/hr PT 11.3 INR 1.1 Sodium (136-145) mmol/L Potassium (3.5-5.1) mmol/L Chloride (98-107) mmol/L Carbon Dioxide (21-32) mmol/L Anion Gap (3-11) BUN (7-18) mg/dl Creatinine (0.6-1.2) mg/dl Est Cr Clr Drug Dosing ml/min Est GFR ( Amer) Est GFR (Non-Af Amer) BUN/Creatinine Ratio (10-20) Glucose (70-99) mg/dl Calcium (8.5-10.1) mg/dl Phosphorus (2.5-4.9) mg/dl Magnesium (1.8-2.4) mg/dl Total Bilirubin (0.2-1) mg/dl AST (15-37) U/L ALT (12-78) U/L Alkaline Phosphatase (45-117) U/L C-Reactive Protein (0-0.29) mg/dl Total Protein (6.4-8.2) gm/dl Albumin (3.4-5.0) gm/dl Globulin (2.5-4.0) gm/dl Albumin/Globulin Ratio (0.9-2) Lipase (73-393) U/L Beta-Hydroxybutyric Acd (0.2-2.81) mg/dl Urine Color Yellow Urine Appearance Clear (Clear) Urine pH 6.0 (4.5-7.5) Ur Specific [place] 1.031 H (1.000-1.030) Urine Protein Negative (Negative) Urine Glucose (UA) 3+ H (Negative) Urine Ketones Negative (Negative) Urine Blood Negative (Negative) Urine Nitrite Negative (Negative) Urine Bilirubin Negative (Negative) Urine Urobilinogen Negative (Negative) Ur Leukocyte Esterase Negative (Negative) 11/30/18 Range/Units 17:42 WBC (4.8-10.8) K/uL RBC (4.2-5.4) M/uL Hgb (12.0-16.0) g/dL Hct (37-47) % MCV (80-100) fL MCH (25-34) pg MCHC (32-36) g/dL RDW Std Deviation (36.4-46.3) fL RDW Coeff of Aleah (11.5-14.5) % Plt Count (130-400) K/uL MPV (7.4-10.4) fL Immature Gran % (Auto) % Neut % (Auto) % Lymph % (Auto) % [place] % (Auto) % Eos % (Auto) % Baso % (Auto) % Immature Gran # (Auto) (0.00-0.02) K/uL Neut # (Auto) (1.4-6.5) K/uL Lymph # (Auto) (1.2-3.4) K/uL [place] # (Auto) (0.11-0.59) K/uL Eos # (Auto) (0-0.5) K/uL Baso # (Auto) (0-0.2) K/uL ESR (0-21) mm/hr PT INR Sodium (136-145) mmol/L Potassium (3.5-5.1) mmol/L Chloride (98-107) mmol/L Carbon Dioxide (21-32) mmol/L Anion Gap (3-11) BUN (7-18) mg/dl Creatinine (0.6-1.2) mg/dl Est Cr Clr Drug Dosing ml/min Est GFR ( Amer) Est GFR (Non-Af Amer) BUN/Creatinine Ratio (10-20) Glucose (70-99) mg/dl Calcium (8.5-10.1) mg/dl Phosphorus 3.0 (2.5-4.9) mg/dl Magnesium 1.8 (1.8-2.4) mg/dl Total Bilirubin (0.2-1) mg/dl AST (15-37) U/L ALT (12-78) U/L Alkaline Phosphatase (45-117) U/L C-Reactive Protein (0-0.29) mg/dl Total Protein (6.4-8.2) gm/dl Albumin (3.4-5.0) gm/dl Globulin (2.5-4.0) gm/dl Albumin/Globulin Ratio (0.9-2) Lipase (73-393) U/L Beta-Hydroxybutyric Acd (0.2-2.81) mg/dl Urine Color Urine Appearance (Clear) Urine pH (4.5-7.5) Ur Specific [place] (1.000-1.030) Urine Protein (Negative) Urine Glucose (UA) (Negative) Urine Ketones (Negative) Urine Blood (Negative) Urine Nitrite (Negative) Urine Bilirubin (Negative) Urine Urobilinogen (Negative) Ur Leukocyte Esterase (Negative) Diagnostic Findings MR lumbar spine wo con CLINICAL HISTORY: 58 years-old Female with LUMBAR SPINE PAIN. Chronic low back pain without reported injury. COMPARISON: Lumbar spine MRI 04/01/2017. TECHNIQUE: Multiplanar, multi sequence MRI of the lumbar spine was performed without intravenous contrast. FINDINGS: Spot Remover localizer images demonstrate no gross abnormality. There is no acute fracture, subluxation or focal bone marrow edema. Signal within the imaged thoracic spinal cord appears unremarkable. Conus medullaris terminates at L1. Signal within the cauda equina also appears to be within normal limits. There is a large collection about the epidural space which is predominantly anterior and also extends posterior measuring 0.8 x 2.7 x 12.2 cm in AP, transverse and craniocaudal dimensions extending from L3 through S1-S2. This collection is predominantly T2 hyperintense and T1 isointense and displaces the thecal sac resulting in multilevel central canal narrowing as described below. T11-T12: Moderate intervertebral disc space narrowing with posterior disc- osteophyte complex formation causing mild central canal stenosis as seen on the sagittal images alone. T12-L1: No central canal or neural foraminal stenosis. L1-L2: No central canal or neural foraminal stenosis. Moderate facet arthrosis with ligamentum flavum thickening. L2-L3: Shortened pedicles with unchanged mild central canal stenosis. No significant neural foraminal narrowing. Moderate facet arthrosis with ligamentum flavum thickening. L3-L4: Epidural collection at this level contributes to severe central canal stenosis. There is moderate right and mild left foraminal narrowing. Moderate to severe facet arthrosis with ligamentum flavum thickening. L4-L5: Mild disc desiccation with mild spondylitic spurring and small posterior annular disc bulge with severe facet arthrosis and ligamentum flavum thickening. Epidural collection causes mass effect upon the thecal sac resulting in severe central canal stenosis, AP dimension of the thecal sac measuring 4 mm. Additionally, there is moderate right and mild left foraminal narrowing. L5-S1: Mild posterior intervertebral disc space narrowing with small c ircumferential annular disc bulge, spondylitic spurring with moderate facet arthrosis and ligamentum flavum thickening. Epidural collection at this level causes severe central canal stenosis, AP dimension of the thecal sac measuring 2 mm. Mild right foraminal narrowing. The left foramen is patent. IMPRESSION: 1. Large epidural fluid collection, most pronounced anteriorly, also extends into the posterior epidural space and measures up to 0.8 x 2.7 x 12.2 cm. This is suggestive of a probable epidural hematoma with epidural abscess considered less likely, however, also within the differential. Correlate clinically. 2. 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 3. Multilevel foraminal narrowing as above. 4. No acute fracture, subluxation or focal bone marrow edema. Findings were discussed with Dr. Ethan Karimi on 11/30/2018 at 11:17 AM. The above report was generated using voice recognition software. It may contain grammatical, syntax or spelling errors. Dictated: 11/30/2018 9:45 AM Transcribed: 11/30/2018 11:39 AM [facility] [id number] [email or web address] Electronically signed by: Jayson Stanford M.D. 11/30/2018 11:44 AM Dictated: 11/30/18 0945 Transcribed: 11/30/18 1139 Code Status & VTE Plan Code Status DNR per discussion with patient VTE Prophylaxis Plan VTE Prophylaxis will be ordered: Yes Critical Care Time Critical Care Time: No (1) Diabetes Diabetes mellitus longterm insulin use: with technical buyer use Diabetes mellitus type: type 2 Diabetes mellitus complication status: without complication Qualified Code(s): E11.9 - Type 2 diabetes mellitus without complications; Z79.4 - prison (current) use of insulin (2) Hypertension Hypertension type: unspecified Qualified Code(s): I10 - Essential (primary) hypertension (3) Asthma Asthma severity: mild Asthma persistence: intermittent Asthma complication type: uncomplicated Qualified Code(s): J45.20 - Mild intermittent asthma, uncomplicated (4) Sleep apnea Sleep apnea type: obstructive Qualified Code(s): G47.33 - Obstructive sleep apnea (adult) (pediatric) (5) Hypothyroid Hypothyroidism type: unspecified Qualified Code(s): E03.9 - Hypothyroidism, unspecified (6) Depression Depression Type: major depressive disorder Major depression recurrence: unspecified whether recurrent Active/Remission status: remission status unspecified Qualified Code(s): F32.9 - Major depressive disorder, single episode, unspecified
[2018-11-30] MEDS ORDERED: DEXTROSE 50% 50 ML SYRINGE IV PRN (17:28)
[2018-11-30] MEDS ORDERED: DOCUSATE SODIUM 100 MG CAP PO PRN (17:28)
[2018-11-30] MEDS ORDERED: GLUCOSE 40% GEL 15 GM TUBE PO PRN (17:28)
[2018-11-30] MEDS ORDERED: ONDANSETRON INJ 2 MG/ML 2 ML VIAL IV PRN (17:28)
[2018-11-30] MEDS ORDERED: CARBOHYDRATES FOR HYPOGLYCEMIA PO PRN (17:28)
[2018-11-30] MEDS ORDERED: GLUCAGON FOR INJ 1 MG VIAL SQ PRN (17:28)
[2018-11-30] MEDS ORDERED: GLUCOSE 10 TABS/TUBE PO PRN (17:28)
[2018-11-30 18:35] LABS: Magnesium 1.8 mg/dl (1.8-2.4)
--- NOTE | 2018-11-30 19:00 | Emergency Department Note ---
Entered by Aubrey Morocho acting as a scribe for History of Present Illness General Chief complaint: Referred by Doctor Stated complaint: BLEEDING IN BACK, MRI SHOWED Source: patient Limitations: no limitations History of Present Illness Provider complaint: Back pain Onset (ago): week(s) (5) Location: back Pain Consistency: + other (worsening) Maximum Pain Intensity: 7 Associated symptoms: no chest pain, no fever/chills and no weakness Treatments prior to arrival: none The patient is a 58 year old female who presents to the Emergency Room with complaints of worsening lower back pain over the past 5 weeks. The patient states that she has a history of chronic lower back pain and is on Meloxicam regularly. She notes that over the past 5 weeks the Melixocam is not controlling her pain any longer. She does note that she has baseline weakness in her legs bilaterally, but denies any new numbness/weakness over the past 5 weeks. She also denies any chest pain, fevers, nausea, vomiting or diarrhea. She has not experienced any bowel or bladder irregularities. The patient has not had any recent surgeries and does not have any history of back surgery. She adds that she has seen [facility] in the past for "shots in my back." The patient notes that she came to the ED today after being called about her outpatient MRI. The outpatient MRI performed today showed a "pool of blood" over her spine. She is on Plavix, but has not taken a dosage since yesterday morning. Home Medications Home Medications Medication Instructions Recorded Confirmed Type atorvastatin [Lipitor] 80 mg PO DAILY 06/14/18 11/30/18 History benztropine 0.5 mg PO QAM 06/14/18 11/30/18 History benztropine 1 mg PO HS 06/14/18 11/30/18 History buspirone 15 mg PO BID 06/14/18 11/30/18 History calcium carbonate [Calcium 600] 600 mg PO BID 06/14/18 11/30/18 History clopidogrel [Plavix] 75 mg PO DAILY 06/14/18 11/30/18 History cyanocobalamin (vitamin B-12) 1,000 mcg PO DAILY 06/14/18 11/30/18 History [Vitamin B-12] dexlansoprazole [Dexilant] 60 mg PO DAILY 06/14/18 11/30/18 History dulaglutide [Trulicity] 1 dose SUBCUT WK 06/14/18 11/30/18 History ferrous sulfate [iron] 325 mg PO BID 06/14/18 11/30/18 History insulin glargine [Lantus Solostar 60 units SUBCUT HS 06/14/18 11/30/18 History U-100 Insulin] levothyroxine [Synthroid] 200 mcg PO DAILY 06/14/18 11/30/18 History losartan [Cozaar] 50 mg PO DAILY 06/14/18 11/30/18 History meloxicam [Mobic] 7.5 mg PO BID PRN 06/14/18 11/30/18 History metformin [Glucophage XR] 1,000 mg PO BID 06/14/18 11/30/18 History pregabalin [Lyrica] 150 mg PO TID 06/14/18 11/30/18 History venlafaxine [Effexor XR] 75 mg PO HS 06/14/18 11/30/18 History venlafaxine [Effexor XR] 300 mg PO HS 06/14/18 11/30/18 History albuterol sulfate [Ventolin HFA] 1 - 2 puff INHALATION Q4H PRN 11/30/18 11/30/18 History cholecalciferol (vitamin D3) 1 cap PO DAILY 11/30/18 11/30/18 History [Vitamin D3] clonazepam 0.25 mg PO BID 11/30/18 11/30/18 History clonazepam 2 tab PO HS 11/30/18 11/30/18 History fluticasone-salmeterol [Advair HFA] 11/30/18 History insulin aspart U-100 [Novolog 1 dose SUBCUT DIRECTED 11/30/18 11/30/18 History Flexpen U-100 Insulin] lurasidone [Latuda] 40 mg PO HS 11/30/18 11/30/18 History lurasidone [Latuda] 80 mg PO HS 11/30/18 11/30/18 History multivitamin 1 tab PO DAILY 11/30/18 11/30/18 History polyethylene glycol 3350 1 - 2 dose PO DAILY 11/30/18 11/30/18 History prazosin 1 mg PO DAILY 11/30/18 11/30/18 History prazosin 2 mg PO DAILY 11/30/18 11/30/18 History quetiapine 1 tab PO HS 11/30/18 11/30/18 History quetiapine 50 mg PO AMHS 11/30/18 11/30/18 History ranitidine HCl 300 mg PO DAILY 11/30/18 11/30/18 History ropinirole mg PO 11/30/18 History sucralfate 1 tab PO TID 11/30/18 11/30/18 History Allergies Allergy/AdvReac Type Severity Reaction Status Date / Time adhesive Allergy Unknown TAPE Verified 11/30/18 13:59 Aminoglycosides Allergy Unknown . Verified 11/30/18 13:59 bacitracin Allergy Unknown RASH Verified 11/30/18 13:59 Cephalosporins Allergy Unknown KEFLEX Verified 11/30/18 13:59 Cipro Allergy Unknown EYE Verified 11/17/17 09:11 SWELLING ciprofloxacin Allergy Unknown EYE Verified 11/30/18 13:59 SWELLING clavulanic acid Allergy Unknown . Verified 11/30/18 13:59 erythromycin base Allergy Unknown HIVES Verified 11/30/18 13:59 hydroxyzine Allergy Unknown PT DOESN'T Verified 11/30/18 13:59 REMEMBER REACTION minocycline Allergy Unknown HIVES Verified 11/30/18 13:59 mivacurium Allergy Unknown HIVES Verified 11/30/18 13:59 mupirocin Allergy Unknown RASH Verified 11/30/18 13:59 neomycin Allergy Unknown RASH Verified 11/30/18 13:59 Penicillins Allergy Unknown HIVES Verified 11/30/18 13:59 polymyxin B Allergy Unknown RASH Verified 11/30/18 13:59 Quinolones Allergy Unknown LEVAQUIN Verified 11/30/18 13:59 tetracycline Allergy Unknown HIVES Verified 11/30/18 13:59 topiramate Allergy Unknown SOB,DIZZINE Verified 11/30/18 13:59 SS aspirin AdvReac Intermediate NOSEBLEEDS- Verified 11/30/18 13:59 CAN TAKE IBUPROFEN Past Med/Surg History Medical History Cellulitis (Chronic) Depression (Chronic) Staph infection (Chronic) Diabetes (Chronic) Hypertension (Chronic) Asthma (Chronic) Stomach problems (Chronic) Sleep apnea (Chronic) 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 and A total of 10 systems reviewed and were otherwise negative Physical Exam Vital Signs Vital Signs - 24 hr 11/30/18 12:16 11/30/18 13:20 11/30/18 14:59 Temperature 36.6 C Temperature Source Oral Sepsis Recent Fever Within 48 Hours No Sepsis New/Unexplained Change in Mental Status No Sepsis Action Taken by Nursing No Action Required Pulse Rate 100 H Pulse Rate [Finger] 95 H 89 Respiratory Rate 20 20 20 Respiratory Effort / Characteristics Non-Labored Spontaneous Respiratory Depth Normal Respiratory Pattern Regular Blood Pressure 157/88 H Blood Pressure [Right Arm] 155/86 H 142/93 H Blood Pressure Mean 111 Blood Pressure Mean [Right Arm] 109 109 Blood Pressure Position [Right Arm] Pulse Oximetry 97 95 93 Oxygen Delivery Method Room Air Room Air Room Air 11/30/18 16:01 11/30/18 17:15 11/30/18 17:30 Temperature 36.8 C 36.8 C Temperature Source Oral Oral Sepsis Recent Fever Within 48 Hours Sepsis New/Unexplained Change in Mental Status Sepsis Action Taken by Nursing Pulse Rate Pulse Rate [Finger] 96 H 95 H 95 H Respiratory Rate 18 18 18 Respiratory Effort / Characteristics Non-Labored Spontaneous Non-Labored Spontaneous Respiratory Depth Normal Normal Respiratory Pattern Regular Regular Blood Pressure Blood Pressure [Right Arm] 150/82 H 157/83 H 157/83 H Blood Pressure Mean Blood Pressure Mean [Right Arm] 104 107 107 Blood Pressure Position [Right Arm] Sitting Sitting Pulse Oximetry 94 93 93 Oxygen Delivery Method Room Air Room Air Room Air GENERAL: Sitting up on edge of bed, alert, well appearing, well nourished, no distress, non-toxic. Obese. EYE EXAM: normal conjunctiva. OROPHARYNX: no exudate, no erythema, lips, buccal mucosa, and tongue normal and mucous membranes are moist NECK: supple, no nuchal rigidity, no adenopathy, non-tender LUNGS: Clear to auscultation. Normal chest wall mechanics HEART: no murmurs, S1 normal and S2 normal ABDOMEN: abdomen soft, non-tender, normo-active bowel, sounds, no masses, no rebound or guarding. BACK: Back is symmetrical on inspection and there is no deformity, no midline tenderness, no CVA tenderness. SKIN: Dark rash of her right lower lumbar region UPPER EXTREMITIES: upper extremities are grossly normal. LOWER EXTREMITIES: No pitting edema. Flexion/extension in hips, knees, ankles, a nd EHL 5/5 bilaterally. Difficult to obtain patellar and Achilles reflexes bilaterally NEURO EXAM: Normal sensorium, cranial nerves II-XII grossly intact, normal speech, no gross weakness of arms, no gross weakness of legs. Course ED COURSE: Vital signs were reviewed and showed hypertension. The patients medical record was reviewed The above diagnostic studies were performed and reviewed. ED treatments and interventions as stated above. 1250: The patient was evaluated in room C6. A complete history and physical examination was performed. 1325: I discussed the case with Dr. Kaci Lantigua. He suggests admission to medicine and he will see in consult. 1332: I reviewed the patient's case with Dr. Kiran Bejarano [facility] [place] She will evaluate the patient for further management. 1423: Upon reevaluation, the patient is updated. I discussed my findings with the patient and she understands and agrees with the treatment plan. Based on the patients age, coexisting illnesses, exam and lab findings the decision to treat as an inpatient was made. The patient remained stable while under my care. The patient will be evaluated for further management. Administered Medications Discontinued Medications Morphine Sulfate (Morphine Sulfate) 4 mg IV NOW STA Stop: 11/30/18 12:59 Last Admin: 11/30/18 13:16 Dose: 4 mg Documented by: [id number] Ondansetron HCl (Zofran) 4 mg IV NOW STA Stop: 11/30/18 12:59 Last Admin: 11/30/18 13:16 Dose: 4 mg Documented by: [id number] Medical Decision Making Differential Diagnosis Differential diagnosis: Etiologies such as muscular strain, fracture, metastatic disease, disc herniation, sciatica, epidural abscess, vertebral osteomyelitis, discitis, spinal epidural hematoma, cord compression, cauda equina/conus medullaris syndrome, aortic disease, infection, shingles, renal colic, gastrointestinal, acute exacerbation of chronic back pain, as well as others were entertained. Medical Records Attestation: I reviewed the patient's medical records. Home Medications Current Medication List: was personally reviewed by me Laboratory Data Attestation: I reviewed the patient's lab results. Result diagrams: 11/30/18 13:10 11/30/18 13:10 Lab Results 11/30/18 11/30/18 11/30/18 Range/Units 13:10 13:10 13:10 WBC 7.89 (4.8-10.8) K/uL RBC 4.16 L (4.2-5.4) M/uL Hgb 11.8 L (12.0-16.0) g/dL Hct 35.9 L (37-47) % MCV 86.3 (80-100) fL MCH 28.4 (25-34) pg MCHC 32.9 (32-36) g/dL RDW Std Deviation 45.1 (36.4-46.3) fL RDW Coeff of Aleah 14.4 (11.5-14.5) % Plt Count 193 (130-400) K/uL MPV 9.5 (7.4-10.4) fL Immature Gran % (Auto) 0.1 % Neut % (Auto) 72.9 % Lymph % (Auto) 19.6 % [place] % (Auto) 5.2 % Eos % (Auto) 1.9 % Baso % (Auto) 0.3 % Immature Gran # (Auto) 0.01 (0.00-0.02) K/uL Neut # (Auto) 5.75 (1.4-6.5) K/uL Lymph # (Auto) 1.55 (1.2-3.4) K/uL [place] # (Auto) 0.41 (0.11-0.59) K/uL Eos # (Auto) 0.15 (0-0.5) K/uL Baso # (Auto) 0.02 (0-0.2) K/uL ESR (0-21) mm/hr PT Cancelled INR Cancelled Sodium 137 (136-145) mmol/L Potassium 3.5 (3.5-5.1) mmol/L Chloride 104 (98-107) mmol/L Carbon Dioxide 27 (21-32) mmol/L Anion Gap 6.0 (3-11) BUN 12 (7-18) mg/dl Creatinine 1.06 (0.6-1.2) mg/dl Est Cr Clr Drug Dosing 76.6 ml/min Est GFR ( Amer) 66.1 Est GFR (Non-Af Amer) 57.0 BUN/Creatinine Ratio 10.9 (10-20) Glucose 336 H (70-99) mg/dl Calcium 8.5 (8.5-10.1) mg/dl Phosphorus (2.5-4.9) mg/dl Magnesium (1.8-2.4) mg/dl Total Bilirubin 0.2 (0.2-1) mg/dl AST 9 L (15-37) U/L ALT 22 (12-78) U/L Alkaline Phosphatase 138 H (45-117) U/L C-Reactive Protein < 0.29 (0-0.29) mg/dl Total Protein 6.8 (6.4-8.2) gm/dl Albumin 3.3 L (3.4-5.0) gm/dl Globulin 3.5 (2.5-4.0) gm/dl Albumin/Globulin Ratio 1.0 (0.9-2) Lipase 252 (73-393) U/L Beta-Hydroxybutyric Acd 1.52 (0.2-2.81) mg/dl Urine Color Urine Appearance (Clear) Urine pH (4.5-7.5) Ur Specific [place] (1.000-1.030) Urine Protein (Negative) Urine Glucose (UA) (Negative) Urine Ketones (Negative) Urine Blood (Negative) Urine Nitrite (Negative) Urine Bilirubin (Negative) Urine Urobilinogen (Negative) Ur Leukocyte Esterase (Negative) 11/30/18 11/30/18 11/30/18 Range/Units 13:10 13:40 13:44 WBC (4.8-10.8) K/uL RBC (4.2-5.4) M/uL Hgb (12.0-16.0) g/dL Hct (37-47) % MCV (80-100) fL MCH (25-34) pg MCHC (32-36) g/dL RDW Std Deviation (36.4-46.3) fL RDW Coeff of Aleah (11.5-14.5) % Plt Count (130-400) K/uL MPV (7.4-10.4) fL Immature Gran % (Auto) % Neut % (Auto) % Lymph % (Auto) % [place] % (Auto) % Eos % (Auto) % Baso % (Auto) % Immature Gran # (Auto) (0.00-0.02) K/uL Neut # (Auto) (1.4-6.5) K/uL Lymph # (Auto) (1.2-3.4) K/uL [place] # (Auto) (0.11-0.59) K/uL Eos # (Auto) (0-0.5) K/uL Baso # (Auto) (0-0.2) K/uL ESR 24 H (0-21) mm/hr PT 11.3 INR 1.1 Sodium (136-145) mmol/L Potassium (3.5-5.1) mmol/L Chloride (98-107) mmol/L Carbon Dioxide (21-32) mmol/L Anion Gap (3-11) BUN (7-18) mg/dl Creatinine (0.6-1.2) mg/dl Est Cr Clr Drug Dosing ml/min Est GFR ( Amer) Est GFR (Non-Af Amer) BUN/Creatinine Ratio (10-20) Glucose (70-99) mg/dl Calcium (8.5-10.1) mg/dl Phosphorus (2.5-4.9) mg/dl Magnesium (1.8-2.4) mg/dl Total Bilirubin (0.2-1) mg/dl AST (15-37) U/L ALT (12-78) U/L Alkaline Phosphatase (45-117) U/L C-Reactive Protein (0-0.29) mg/dl Total Protein (6.4-8.2) gm/dl Albumin (3.4-5.0) gm/dl Globulin (2.5-4.0) gm/dl Albumin/Globulin Ratio (0.9-2) Lipase (73-393) U/L Beta-Hydroxybutyric Acd (0.2-2.81) mg/dl Urine Color Yellow Urine Appearance Clear (Clear) Urine pH 6.0 (4.5-7.5) Ur Specific [place] 1.031 H (1.000-1.030) Urine Protein Negative (Negative) Urine Glucose (UA) 3+ H (Negative) Urine Ketones Negative (Negative) Urine Blood Negative (Negative) Urine Nitrite Negative (Negative) Urine Bilirubin Negative (Negative) Urine Urobilinogen Negative (Negative) Ur Leukocyte Esterase Negative (Negative) 11/30/18 Range/Units 17:42 WBC (4.8-10.8) K/uL RBC (4.2-5.4) M/uL Hgb (12.0-16.0) g/dL Hct (37-47) % MCV (80-100) fL MCH (25-34) pg MCHC (32-36) g/dL RDW Std Deviation (36.4-46.3) fL RDW Coeff of Aleah (11.5-14.5) % Plt Count (130-400) K/uL MPV (7.4-10.4) fL Immature Gran % (Auto) % Neut % (Auto) % Lymph % (Auto) % [place] % (Auto) % Eos % (Auto) % Baso % (Auto) % Immature Gran # (Auto) (0.00-0.02) K/uL Neut # (Auto) (1.4-6.5) K/uL Lymph # (Auto) (1.2-3.4) K/uL [place] # (Auto) (0.11-0.59) K/uL Eos # (Auto) (0-0.5) K/uL Baso # (Auto) (0-0.2) K/uL ESR (0-21) mm/hr PT INR Sodium (136-145) mmol/L Potassium (3.5-5.1) mmol/L Chloride (98-107) mmol/L Carbon Dioxide (21-32) mmol/L Anion Gap (3-11) BUN (7-18) mg/dl Creatinine (0.6-1.2) mg/dl Est Cr Clr Drug Dosing ml/min Est GFR ( Amer) Est GFR (Non-Af Amer) BUN/Creatinine Ratio (10-20) Glucose (70-99) mg/dl Calcium (8.5-10.1) mg/dl Phosphorus 3.0 (2.5-4.9) mg/dl Magnesium 1.8 (1.8-2.4) mg/dl Total Bilirubin (0.2-1) mg/dl AST (15-37) U/L ALT (12-78) U/L Alkaline Phosphatase (45-117) U/L C-Reactive Protein (0-0.29) mg/dl Total Protein (6.4-8.2) gm/dl Albumin (3.4-5.0) gm/dl Globulin (2.5-4.0) gm/dl Albumin/Globulin Ratio (0.9-2) Lipase (73-393) U/L Beta-Hydroxybutyric Acd (0.2-2.81) mg/dl Urine Color Urine Appearance (Clear) Urine pH (4.5-7.5) Ur Specific [place] (1.000-1.030) Urine Protein (Negative) Urine Glucose (UA) (Negative) Urine Ketones (Negative) Urine Blood (Negative) Urine Nitrite (Negative) Urine Bilirubin (Negative) Urine Urobilinogen (Negative) Ur Leukocyte Esterase (Negative) Blood Pressure Blood Pressure Findings: Elevated blood pressure Blood Pressure Disposition: further management by hospitalist MDM Narrative Patient is a 58-year-old female presents the ER for back pain which is been getting worse since October. Patient recently had an MRI done and was referred in here for further workup. Labs were obtained and showed no significant leukocytosis or anemia. Sed rate was slightly elevated at 24. INR was normal. BMP was unremarkable. BSG was slightly elevated at 330. LFTs was unremarkable. Beta hydroxybutyric was negative. UA was negative. CRP was negative. MRI was reviewed which showed a large questionable epidural hematoma versus abscess. This was reviewed with spinal surgery which on the phone. They recommended holding the Plavix and they will evaluate her for further management. She was neurologically intact. Patient was updated bedside. She was given IV narcotics to assist with the pain. She was discussed with the hospitalist and admitted fo r further workup. 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 I confirm that the note above accurately reflects all work, treatment, procedures, and medical decision making performed by me.
[2018-11-30] MEDS: BusPIRone 15 MG TAB PO SCH (20:32)
[2018-11-30] MEDS: CALCIUM 600MG + VIT D 400 IU TAB PO SCH (20:32)
[2018-11-30] MEDS: BENZTROPINE MESYLATE 1 MG TAB PO SCH (20:32)
[2018-11-30] MEDS: VENLAFAXINE HCL XR 150 MG CAPXR PO SCH (20:33)
[2018-11-30] MEDS: FERROUS SULFATE 325 MG TAB PO SCH (20:33)
[2018-11-30] MEDS: VENLAFAXINE HCL XR 75 MG CAPXR PO SCH (20:33)
[2018-11-30] MEDS: LURASIDONE HCL 40 MG TAB PO SCH (20:34)
[2018-11-30] MEDS: QUETIAPINE FUMARATE 300 MG TABLET PO SCH (20:35)
[2018-11-30] MEDS: QUETIAPINE FUMARATE 25 MG TABLET PO SCH (20:35)
[2018-11-30] MEDS: PREGABALIN 150 MG CAP PO SCH (20:37)
[2018-11-30] MEDS: clonazePAM 1 MG TAB PO SCH (20:37)
[2018-11-30] MEDS: INSULIN ASPART 100 UNITS/ML 3 ML PEN SC SCH ×2 (20:45→20:46)
[2018-11-30] MEDS: INSULIN GLARGINE SOLOSTAR 100 UNITS/ML 3 ML PEN SQ SCH (20:47)
[2018-11-30] MEDS ORDERED: clonazePAM 1 MG TAB PO SCH (21:00)
[2018-11-30] MEDS ORDERED: BENZTROPINE MESYLATE 1 MG TAB PO SCH (21:00)
[2018-11-30] MEDS ORDERED: LURASIDONE HCL 40 MG TAB PO SCH (21:00)
[2018-12-01] MEDS: MoRPHine SULFATE 4 MG/ML 1 ML CARP\\VIAL IV PRN ×2 (00:07→12:20)
[2018-12-01] MEDS: INSULIN ASPART 100 UNITS/ML 3 ML PEN SC SCH ×5 (00:50→21:50)
[2018-12-01] MEDS: LEVOTHYROXINE SODIUM 200 MCG TABLET PO SCH (05:46)
[2018-12-01 06:44] LABS: Basophils # (auto) 0.01 K/uL (0-0.2); Basophils % (auto) 0.1 %; Eosinophils # (auto) 0.24 K/uL (0-0.5); Eosinophils % (auto) 3.2 %; Hematocrit (blood only) 36.7 % (37-47); Hemoglobin 12.1 g/dL (12.0-16.0); Immature Granulocytes # (auto) 0.01 K/uL (0.00-0.02); Immature Granulocytes % (auto) 0.1 %; Lymphocytes % (auto) 28.1 %; Mean Corpuscular Volume 87.2 fL (80-100); Mean Platelet Volume 9.8 fL (7.4-10.4); Monocytes # (auto) 0.53 K/uL (0.11-0.59); Monocytes % (auto) 7.1 %; Neutrophils # (auto) 4.59 K/uL (1.4-6.5); Neutrophils % (auto) 61.4 %; Platelet Count 191 K/uL (130-400); RDW Coefficient of Variation 14.5 % (11.5-14.5); RDW Standard Deviation 46.4 fL (36.4-46.3); Red Blood Count 4.21 M/uL (4.2-5.4); White Blood Count 7.48 K/uL (4.8-10.8)
[2018-12-01 07:27] LABS: BUN Creatinine Ratio 11.2 (10-20); Calcium 8.6 mg/dl (8.5-10.1); Creatinine Clr Calc Pharmacy 84.8 ml/min; Est GFR (African American) 75.5; Est GFR (Non-African American) 65.1; Potassium 3.2 mmol/L (3.5-5.1)
[2018-12-01] MEDS ORDERED: ACETAMINOPHEN 500 MG TAB PO STA (08:20)
[2018-12-01] MEDS ORDERED: clonazePAM 1 MG TAB PO SCH (09:00)
[2018-12-01] MEDS: clonazePAM 0.5 MG TAB PO SCH ×2 (09:09→12:27)
[2018-12-01] MEDS: QUETIAPINE FUMARATE 25 MG TABLET PO SCH ×2 (09:10→21:44)
[2018-12-01] MEDS: LOSARTAN POTASSIUM 50 MG TAB PO SCH (09:10)
[2018-12-01] MEDS: PANTOprazole 40 MG TAB PO SCH (09:10)
[2018-12-01] MEDS: ATORVASTATIN 40 MG TAB PO SCH (09:10)
[2018-12-01] MEDS: CALCIUM 600MG + VIT D 400 IU TAB PO SCH ×2 (09:10→21:43)
[2018-12-01] MEDS: BusPIRone 15 MG TAB PO SCH ×2 (09:10→21:44)
[2018-12-01] MEDS: FERROUS SULFATE 325 MG TAB PO SCH ×2 (09:10→21:43)
[2018-12-01] MEDS: PREGABALIN 150 MG CAP PO SCH ×3 (09:11→21:43)
[2018-12-01] MEDS: CHOLECALCIFEROL 1,000 UNITS TAB PO SCH (09:11)
[2018-12-01] MEDS: BENZTROPINE MESYLATE 0.5 MG TAB PO SCH (09:11)
[2018-12-01] MEDS ORDERED: POTASSIUM CHLORIDE 10 MEQ TABCR PO ONE (09:30)
--- NOTE | 2018-12-01 14:53 | Orthopedic Consultation ---
Date of Consultation December 01, 2018 Assessment & Plan (1) Epidural hematoma: This time she is evidence of an epidural hematoma extending from L3-S1. She has excellent motor strength at this time she exhibits no bowel or bladder decline.. His comfortable during our discussion today. I recommend continued observation only. Any surgical intervention be quite extensive in nature require decompression L3-4 and 5. Clearly with her health history and body habitus with this would be less than desirable. Subsequently try to avoid surgery and continue with observation. We may need to update an MRI in another week. Patient understands and agrees. Present on Admission?: Yes History of Present Illness Attending Physician: Gopi Buckner History of Present Illness This is a 58-year-old female that presents with back and right greater than left leg pain. She states the symptoms began in October. She denies any specific trauma fall or event. She denies any loss of bowel bladder function. She states she is able to ambulate relatively well but does note increased burning in her right buttock when doing so. Allergies Allergy/AdvReac Type Severity Reaction Status Date / Time adhesive Allergy Unknown TAPE Verified 11/30/18 13:59 Aminoglycosides Allergy Unknown . Verified 11/30/18 13:59 bacitracin Allergy Unknown RASH Verified 11/30/18 13:59 Cephalosporins Allergy Unknown KEFLEX Verified 11/30/18 13:59 Cipro Allergy Unknown EYE Verified 11/17/17 09:11 SWELLING ciprofloxacin Allergy Unknown EYE Verified 11/30/18 13:59 SWELLING clavulanic acid Allergy Unknown . Verified 11/30/18 13:59 erythromycin base Allergy Unknown HIVES Verified 11/30/18 13:59 hydroxyzine Allergy Unknown PT DOESN'T Verified 11/30/18 13:59 REMEMBER REACTION minocycline Allergy Unknown HIVES Verified 11/30/18 13:59 mivacurium Allergy Unknown HIVES Verified 11/30/18 13:59 mupirocin Allergy Unknown RASH Verified 11/30/18 13:59 neomycin Allergy Unknown RASH Verified 11/30/18 13:59 Penicillins Allergy Unknown HIVES Verified 11/30/18 13:59 polymyxin B Allergy Unknown RASH Verified 11/30/18 13:59 Quinolones Allergy Unknown LEVAQUIN Verified 11/30/18 13:59 tetracycline Allergy Unknown HIVES Verified 11/30/18 13:59 topiramate Allergy Unknown SOB,DIZZINE Verified 11/30/18 13:59 SS aspirin AdvReac Intermediate NOSEBLEEDS- Verified 11/30/18 13:59 CAN TAKE IBUPROFEN Home Medications Home Medications Medication Instructions Recorded Confirmed Type atorvastatin [Lipitor] 80 mg PO DAILY 06/14/18 11/30/18 History benztropine 0.5 mg PO QAM 06/14/18 11/30/18 History benztropine 1 mg PO HS 06/14/18 11/30/18 History buspirone 15 mg PO BID 06/14/18 11/30/18 History calcium carbonate [Calcium 600] 600 mg PO BID 06/14/18 11/30/18 History clopidogrel [Plavix] 75 mg PO DAILY 06/14/18 11/30/18 History cyanocobalamin (vitamin B-12) 1,000 mcg PO DAILY 06/14/18 11/30/18 History [Vitamin B-12] dexlansoprazole [Dexilant] 60 mg PO DAILY 06/14/18 11/30/18 History dulaglutide [Trulicity] 1 dose SUBCUT WK 06/14/18 11/30/18 History ferrous sulfate [iron] 325 mg PO BID 06/14/18 11/30/18 History insulin glargine [Lantus Solostar 60 units SUBCUT HS 06/14/18 11/30/18 History U-100 Insulin] levothyroxine [Synthroid] 200 mcg PO DAILY 06/14/18 11/30/18 History losartan [Cozaar] 50 mg PO DAILY 06/14/18 11/30/18 History meloxicam [Mobic] 7.5 mg PO BID PRN 06/14/18 11/30/18 History metformin [Glucophage XR] 1,000 mg PO BID 06/14/18 11/30/18 History pregabalin [Lyrica] 150 mg PO TID 06/14/18 11/30/18 History venlafaxine [Effexor XR] 75 mg PO HS 06/14/18 11/30/18 History venlafaxine [Effexor XR] 300 mg PO HS 06/14/18 11/30/18 History albuterol sulfate [Ventolin HFA] 1 - 2 puff INHALATION Q4H PRN 11/30/18 11/30/18 History cholecalciferol (vitamin D3) 1 cap PO DAILY 11/30/18 11/30/18 History [Vitamin D3] clonazepam 0.25 mg PO BID 11/30/18 11/30/18 History clonazepam 2 tab PO HS 11/30/18 11/30/18 History fluticasone-salmeterol [Advair HFA] 11/30/18 History insulin aspart U-100 [Novolog 1 dose SUBCUT DIRECTED 11/30/18 11/30/18 History Flexpen U-100 Insulin] lurasidone [Latuda] 40 mg PO HS 11/30/18 11/30/18 History lurasidone [Latuda] 80 mg PO HS 11/30/18 11/30/18 History multivitamin 1 tab PO DAILY 11/30/18 11/30/18 History polyethylene glycol 3350 1 - 2 dose PO DAILY 11/30/18 11/30/18 History prazosin 1 mg PO DAILY 11/30/18 11/30/18 History prazosin 2 mg PO DAILY 11/30/18 11/30/18 History quetiapine 1 tab PO HS 11/30/18 11/30/18 History quetiapine 50 mg PO AMHS 11/30/18 11/30/18 History ranitidine HCl 300 mg PO DAILY 11/30/18 11/30/18 History ropinirole mg PO 11/30/18 History sucralfate 1 tab PO TID 11/30/18 11/30/18 History Patient History Medical History Cellulitis (Chronic) Depression (Chronic) Staph infection (Chronic) Diabetes (Chronic) Hypertension (Chronic) Asthma (Chronic) Stomach problems (Chronic) Sleep apnea (Chronic) Diabetic peripheral neuropathy associated with type 2 diabetes mellitus (Res olved) Wflwedo-Pgucwlnht-Zsbzj syndrome (Chronic) Loss of sensation (Resolved) Neuropathy (Resolved) Social History Communication Ability: Effective Beliefs That Will Affect Care: None marital status: Current Living Situation: Alone Current Living Situation Comment: Patient lives alone in a Townhouse Other Information That Helps Us Care for You: No Feels Safe at Home: Hesitant to Answer Safety Concerns: Afraid for Self Smoking Status: Never smoker Hx Alcohol Use: Yes Hx Substance Use: No Physical Exam Vital Signs (Past 24 Hours): Last Vital Signs Temp 36.6 C 12/01/18 11:29 Pulse 78 12/01/18 11:29 Resp 16 12/01/18 11:29 BP 120/69 12/01/18 11:29 Pulse Ox 91 12/01/18 14:27 Physical Exam: On exam she exhibits plus 5 out of 5 bilateral plantar flexion dorsiflexion quadriceps. Sensory symmetric and intact.
--- NOTE | 2018-12-01 20:16 | Hospitalist Progress Note ---
Date of Service December 01, 2018 Assessment & Plan (1) Epidural hematoma: seen by Dr. Clemons - nonoperative management recommended at this time. the hope is that this will not require any surgical intervention. plavix being held. pain control. PT, OT. repeat MRI in about 1 week of l-spine. Present on Admission?: Yes (2) Morbid obesity with BMI of 45.0-49.9, adult: BMI 46 (3) Hypothyroid: cont synthroid most recent TSH 1.3 in 08/2018 (4) Depression: followed by psychiatry continue all home medications (5) Diabetes: control very adequate at this time cont lantus + novolog w meals (6) Hypertension: controlled cont home meds (7) Asthma: no issues at this time (8) Sleep apnea: cont CPAP at HS (9) DVT prophylaxis: h/o DVT but remote - about 15 years ago chemical means contraindicated due to large epidural hematoma SCDs for now Subjective pt c/o back pain - but improved from admission w/ IV pain meds. has chronic RLE paresthesias - mainly outer aspect of hip/leg - but again it is chronic. no new paresthesias. no bowel/bladder issues. no fever. patient reports that she had a fall in her bath-tub in October and her pain in the back started then. she has been taking plavix "for blood clots". last DVT was 15 years ago. Constitutional: no fever and no chills Respiratory: no cough and no dyspnea Cardiovascular: no chest pain Gastrointestinal: no abdominal pain Psychiatric: no depression sees Dr. Ramos from psych Physical Exam Vital Signs (Past 24 Hours): Last Vital Signs Temp 36.5 C 12/01/18 15:10 Pulse 78 12/01/18 15:10 Resp 19 12/01/18 15:10 BP 146/82 H 12/01/18 15:10 Pulse Ox 93 12/01/18 15:10 Constitutional: + morbidly obese; no acute distress and not ill appearing ENMT: external ear and nose normal, oropharynx normal Respiratory: normal respiratory effort, lungs clear to auscultation Cardiovascular: RRR, no murmur, no edema Heart Sounds: normal S1 and normal S2 Vessels: posterior tibial pulses present and dorsalis pedis pulses present; no JVD Gastrointestinal (Abdomen): normal bowel sounds, soft, nontender, no hepatosplenomegaly Musculoskeletal: back - mild tenderness to palpation over l-spine Neurologic: no focal motor deficits (strength 5/5 b/l LEs) Psychiatric: Orientation: alert and oriented x 3 Results & Data Laboratory Results Laboratory Results - last 24 hr 11/30/18 12/01/18 12/01/18 20:24 00:43 05:55 WBC RBC Hgb Hct MCV MCH MCHC RDW Std Deviation RDW Coeff of Aleah Plt Count MPV Immature Gran % (Auto) Neut % (Auto) Lymph % (Auto) Daniels % (Auto) Eos % (Auto) Baso % (Auto) Immature Gran # (Auto) Neut # (Auto) Lymph # (Auto) Daniels # (Auto) Eos # (Auto) Baso # (Auto) Sodium Potassium Chloride Carbon Dioxide Anion Gap BUN Creatinine Est Cr Clr Drug Dosing Est GFR ( Amer) Est GFR (Non-Af Amer) BUN/Creatinine Ratio Glucose POC Glucose 214 H 107 H 91 Calcium 12/01/18 12/01/18 12/01/18 06:23 06:23 12:09 WBC 7.48 RBC 4.21 Hgb 12.1 Hct 36.7 L MCV 87.2 MCH 28.7 MCHC 33.0 RDW Std Deviation 46.4 H RDW Coeff of Aleah 14.5 Plt Count 191 MPV 9.8 Immature Gran % (Auto) 0.1 Neut % (Auto) 61.4 Lymph % (Auto) 28.1 Daniels % (Auto) 7.1 Eos % (Auto) 3.2 Baso % (Auto) 0.1 Immature Gran # (Auto) 0.01 Neut # (Auto) 4.59 Lymph # (Auto) 2.10 Daniels # (Auto) 0.53 Eos # (Auto) 0.24 Baso # (Auto) 0.01 Sodium 141 Potassium 3.2 L Chloride 106 Carbon Dioxide 31 Anion Gap 4.0 BUN 11 Creatinine 0.95 Est Cr Clr Drug Dosing 84.8 Est GFR ( Amer) 75.5 Est GFR (Non-Af Amer) 65.1 BUN/Creatinine Ratio 11.2 Glucose 101 H POC Glucose 119 H Calcium 8.6 12/01/18 17:02 WBC RBC Hgb Hct MCV MCH MCHC RDW Std Deviation RDW Coeff of Aleah Plt Count MPV Immature Gran % (Auto) Neut % (Auto) Lymph % (Auto) Daniels % (Auto) Eos % (Auto) Baso % (Auto) Immature Gran # (Auto) Neut # (Auto) Lymph # (Auto) Daniels # (Auto) Eos # (Auto) Baso # (Auto) Sodium Potassium Chloride Carbon Dioxide Anion Gap BUN Creatinine Est Cr Clr Drug Dosing Est GFR ( Amer) Est GFR (Non-Af Amer) BUN/Creatinine Ratio Glucose POC Glucose 106 H Calcium (1) Hypothyroid Hypothyroidism type: unspecified Qualified Code(s): E03.9 - Hypothyroidism, unspecified (2) Depression Depression Type: major depressive disorder Major depression recurrence: unspecified whether recurrent Active/Remission status: remission status unspecified Qualified Code(s): F32.9 - Major depressive disorder, single episode, unspecified (3) Diabetes Diabetes mellitus complication status: without complication Diabetes mellitus dedicated intermodal truck driver insulin use: with dedicated intermodal truck driver use Diabetes mellitus type: type 2 Qualified Code(s): E11.9 - Type 2 diabetes mellitus without complications; Z79.4 - custodial (current) use of insulin (4) Hypertension Hypertension type: unspecified Qualified Code(s): I10 - Essential (primary) hypertension (5) Asthma Asthma severity: mild Asthma persistence: intermittent Asthma complication type: uncomplicated Qualified Code(s): J45.20 - Mild intermittent asthma, uncomplicated (6) Sleep apnea Sleep apnea type: obstructive Qualified Code(s): G47.33 - Obstructive sleep apnea (adult) (pediatric)
[2018-12-01] MEDS: clonazePAM 1 MG TAB PO SCH (21:43)
[2018-12-01] MEDS: LURASIDONE HCL 40 MG TAB PO SCH (21:43)
[2018-12-01] MEDS: VENLAFAXINE HCL XR 75 MG CAPXR PO SCH (21:43)
[2018-12-01] MEDS: VENLAFAXINE HCL XR 150 MG CAPXR PO SCH (21:43)
[2018-12-01] MEDS: BENZTROPINE MESYLATE 1 MG TAB PO SCH (21:44)
[2018-12-01] MEDS: QUETIAPINE FUMARATE 300 MG TABLET PO SCH (21:44)
[2018-12-01] MEDS: INSULIN GLARGINE SOLOSTAR 100 UNITS/ML 3 ML PEN SQ SCH (21:50)
[2018-12-02] MEDS: LEVOTHYROXINE SODIUM 200 MCG TABLET PO SCH (06:15)
[2018-12-02 07:08] LABS: Hematocrit (blood only) 38.3 % (37-47); Hemoglobin 12.4 g/dL (12.0-16.0); Mean Corpuscular Hgb Conc 32.4 g/dL (32-36); Mean Platelet Volume 9.7 fL (7.4-10.4); Platelet Count 208 K/uL (130-400); RDW Coefficient of Variation 14.6 % (11.5-14.5); Red Blood Count 4.35 M/uL (4.2-5.4); White Blood Count 6.64 K/uL (4.8-10.8)
[2018-12-02 07:48] LABS: BUN Creatinine Ratio 9.8 (10-20); Calcium 8.7 mg/dl (8.5-10.1); Creatinine Clr Calc Pharmacy 60.6 ml/min; Est GFR (African American) 50.2; Est GFR (Non-African American) 43.3; Potassium 3.7 mmol/L (3.5-5.1)
[2018-12-02] MEDS: HYDROCODONE/ACETAMINOPHEN 7.5/325MG TAB PO PRN ×2 (07:51→13:51)
[2018-12-02] MEDS: clonazePAM 0.5 MG TAB PO SCH ×2 (07:57→11:46)
[2018-12-02] MEDS: FERROUS SULFATE 325 MG TAB PO SCH ×2 (09:18→22:11)
[2018-12-02] MEDS: BENZTROPINE MESYLATE 0.5 MG TAB PO SCH (09:19)
[2018-12-02] MEDS: QUETIAPINE FUMARATE 25 MG TABLET PO SCH ×2 (09:19→22:15)
[2018-12-02] MEDS: BusPIRone 15 MG TAB PO SCH ×2 (09:19→22:09)
[2018-12-02] MEDS: CALCIUM 600MG + VIT D 400 IU TAB PO SCH ×2 (09:20→22:10)
[2018-12-02] MEDS: ATORVASTATIN 40 MG TAB PO SCH (09:20)
[2018-12-02] MEDS: LOSARTAN POTASSIUM 50 MG TAB PO SCH (09:20)
[2018-12-02] MEDS: CHOLECALCIFEROL 1,000 UNITS TAB PO SCH (09:21)
[2018-12-02] MEDS: PANTOprazole 40 MG TAB PO SCH (09:21)
[2018-12-02] MEDS: PREGABALIN 150 MG CAP PO SCH ×3 (09:22→22:18)
[2018-12-02] MEDS: INSULIN ASPART 100 UNITS/ML 3 ML PEN SC SCH ×4 (09:25→22:13)
[2018-12-02] MEDS: MoRPHine SULFATE 4 MG/ML 1 ML CARP\\VIAL IV PRN (11:53)
--- NOTE | 2018-12-02 13:16 | Orthopedic Progress Note ---
Date of Service December 02, 2018 Assessment & Plan (1) Epidural hematoma: At this time the patient seems to be steadily improving. She looks much more comfortable today. I have again outlined to her our plan to continue with observation and hopefully avoid any surgical intervention. She understands and agrees. Present on Admission?: Yes Subjective Patient states her back pain is improving. She states her right leg symptoms are improving she has been ambulating in her room without difficulty. She denies any change in bowel or bladder function. Physical Exam Vital Signs (Past 24 Hours): Last Vital Signs Temp 36.7 C 12/02/18 07:40 Pulse 75 12/02/18 07:40 Resp 17 12/02/18 07:40 BP 123/80 12/02/18 07:40 Pulse Ox 95 12/02/18 07:40 Physical Exam: On exam she is in bed at this time. She has reasonable strength testing bilateral extremity sensory symmetric and intact.
--- NOTE | 2018-12-02 21:00 | Hospitalist Progress Note ---
Date of Service December 02, 2018 Assessment & Plan (1) Epidural hematoma: seen by Dr. Clemons - nonoperative management recommended at this time. the hope is that this will not require any surgical intervention. plavix being held. pain control. increase norco to 10mg dose and allow q4h. PT, OT. repeat MRI in about 1 week of l-spine. neuro exam continues to remain stable. (2) Morbid obesity with BMI of 45.0-49.9, adult: BMI 46 (3) Hypothyroid: cont synthroid most recent TSH 1.3 in 08/2018 (4) Depression: followed by psychiatry continue all home medications no issues (5) Diabetes: control very adequate at this time cont lantus + novolog w meals (6) Hypertension: controlled cont home meds (7) Asthma: no issues at this time (8) Sleep apnea: cont CPAP at HS (9) DVT prophylaxis: chemical means contraindicated due to large epidural hematoma SCDs for now ambulation will check with Dr. Clemons to see how long to observe in hospital needs bowel regimen Subjective patient overall feels ok but still w/ back pain the norco helps on limited basis requiring IV morphine to stay comfortable no bowel movement ambulating Pt/Ot evals completed - cleared for home no new neuro sx's of legs Respiratory: no cough and no dyspnea Cardiovascular: no chest pain Gastrointestinal: + constipation; no abdominal pain, no nausea and no vomiting Neurologic: no localized weakness, no paralysis and no numbness Physical Exam Vital Signs (Past 24 Hours): Last Vital Signs Temp 37 C 12/02/18 15:02 Pulse 77 12/02/18 15:02 Resp 18 12/02/18 15:02 BP 132/79 12/02/18 15:02 Pulse Ox 93 12/02/18 15:02 Constitutional: + morbidly obese; no acute distress and not ill appearing ENMT: external ear and nose normal, oropharynx normal Respiratory: normal respiratory effort, lungs clear to auscultation Cardiovascular: RRR, no murmur, no edema Heart Sounds: normal S1 and normal S2 Vessels: posterior tibial pulses present and dorsalis pedis pulses present; no JVD Gastrointestinal (Abdomen): normal bowel sounds, soft, nontender, no hepatosplenomegaly Musculoskeletal: Spine: + lumbar spinal tenderness and + paraspinal tenderness Neurologic: no focal motor deficits (strength 5/5 b/l LEs) Psychiatric: Orientation: alert and oriented x 3 (1) Sleep apnea Sleep apnea type: obstructive Qualified Code(s): G47.33 - Obstructive sleep apnea (adult) (pediatric) (2) Diabetes Diabetes mellitus complication status: without complication Diabetes mellitus custodial insulin use: with vehicle refinisher use Diabetes mellitus type: type 2 Qualified Code(s): E11.9 - Type 2 diabetes mellitus without complications; Z79.4 - fox farmer (current) use of insulin (3) Depression Active/Remission status: remission status unspecified Depression Type: major depressive disorder Major depression recurrence: unspecified whether recurrent Qualified Code(s): F32.9 - Major depressive disorder, single episode, unspecified (4) Hypothyroid Hypothyroidism type: unspecified Qualified Code(s): E03.9 - Hypothyroidism, unspecified (5) Hypertension Hypertension type: unspecified Qualified Code(s): I10 - Essential (primary) hypertension (6) Asthma Asthma complication type: uncomplicated Asthma persistence: intermittent Asthma severity: mild Qualified Code(s): J45.20 - Mild intermittent asthma, uncomplicated
[2018-12-02] MEDS: VENLAFAXINE HCL XR 75 MG CAPXR PO SCH (22:11)
[2018-12-02] MEDS: VENLAFAXINE HCL XR 150 MG CAPXR PO SCH (22:11)
[2018-12-02] MEDS: LURASIDONE HCL 40 MG TAB PO SCH (22:12)
[2018-12-02] MEDS: INSULIN GLARGINE SOLOSTAR 100 UNITS/ML 3 ML PEN SQ SCH (22:12)
[2018-12-02] MEDS: SENNA 8.6 MG TAB PO SCH (22:14)
[2018-12-02] MEDS: QUETIAPINE FUMARATE 300 MG TABLET PO SCH (22:15)
[2018-12-02] MEDS: BENZTROPINE MESYLATE 1 MG TAB PO SCH (22:16)
[2018-12-02] MEDS: clonazePAM 1 MG TAB PO SCH (22:18)
[2018-12-03] MEDS: LEVOTHYROXINE SODIUM 200 MCG TABLET PO SCH (06:33)
[2018-12-03] MEDS: clonazePAM 0.5 MG TAB PO SCH ×2 (08:04→11:47)
[2018-12-03] MEDS: PREGABALIN 150 MG CAP PO SCH ×3 (08:50→21:34)
[2018-12-03] MEDS: POLYETHYLENE (MIRALAX) 17 GM PACK PO SCH (08:51)
[2018-12-03] MEDS: BENZTROPINE MESYLATE 0.5 MG TAB PO SCH (08:52)
[2018-12-03] MEDS: PANTOprazole 40 MG TAB PO SCH (08:52)
[2018-12-03] MEDS: LOSARTAN POTASSIUM 50 MG TAB PO SCH (08:52)
[2018-12-03] MEDS: ATORVASTATIN 40 MG TAB PO SCH (08:53)
[2018-12-03] MEDS: CHOLECALCIFEROL 1,000 UNITS TAB PO SCH (08:53)
[2018-12-03] MEDS: CALCIUM 600MG + VIT D 400 IU TAB PO SCH ×2 (08:53→21:33)
[2018-12-03] MEDS: QUETIAPINE FUMARATE 25 MG TABLET PO SCH ×2 (08:53→21:35)
[2018-12-03] MEDS: FERROUS SULFATE 325 MG TAB PO SCH ×2 (08:54→21:34)
[2018-12-03] MEDS: BusPIRone 15 MG TAB PO SCH ×2 (08:54→21:31)
[2018-12-03] MEDS: INSULIN ASPART 100 UNITS/ML 3 ML PEN SC SCH ×4 (08:57→21:43)
--- NOTE | 2018-12-03 10:24 | Orthopedic Progress Note ---
Date of Service December 03, 2018 Assessment & Plan (1) Epidural hematoma: At this time she appears to be progressing appropriately. Hopefully discharge home later this weekend with a follow-up MRI in another week or so. Present on Admission?: Yes Subjective Patient states her back pain is well controlled leg pain symptoms improved. Physical Exam Vital Signs (Past 24 Hours): Last Vital Signs Temp 36.9 C 12/03/18 07:26 Pulse 85 12/03/18 07:26 Resp 18 12/03/18 07:26 BP 136/70 12/03/18 07:26 Pulse Ox 90 12/03/18 07:26 Physical Exam: On exam she is resting comfortably. She is neurologically intact lower extremities.
[2018-12-03] MEDS: HYDROCODONE/ACETAMINOPHEN 10/325 TAB PO PRN ×2 (11:41→15:44)
[2018-12-03] MEDS ORDERED: BISACODYL 5 MG TABEC PO ONE (15:04)
--- NOTE | 2018-12-03 20:20 | Hospitalist Progress Note ---
Date of Service December 03, 2018 Assessment & Plan (1) Epidural hematoma: seen by Dr. Clemons - nonoperative management recommended at this time. plavix being held. pain control with norco 10's; stop morphine today to see if the norco is adequate for her pain. PT, OT. repeat MRI in about 1 week of l-spine. neuro exam again stable today. (2) Morbid obesity with BMI of 45.0-49.9, adult: BMI 46 (3) Hypothyroid: cont synthroid most recent TSH 1.3 in 08/2018 (4) Depression: followed by psychiatry continue all home medications (5) Diabetes: control for the most part acceptable; occasional high cont lantus + novolog w meals (6) Hypertension: controlled cont home meds (7) Asthma: no issues at this time (8) Sleep apnea: cont CPAP at HS (9) DVT prophylaxis: chemical means contraindicated due to large epidural hematoma SCDs and ambulation from Dr. Clemons's standpoint can d/c at any time with close outpatient follow-up and outpatient MRI needs bowel regimen due to narcotic-induced constipation hopefully home tomorrow Subjective requiring little narcotics despite such she reports "the pain is still there" and that "the oral pain meds don't help" ambulating no bowel movement since admission eating fine no new neuro symptoms of legs Respiratory: no dyspnea and no dyspnea on exertion Cardiovascular: no chest pain Gastrointestinal: no abdominal pain Physical Exam Vital Signs (Past 24 Hours): Last Vital Signs Temp 36.5 C 12/03/18 15:10 Pulse 78 12/03/18 15:10 Resp 18 12/03/18 15:10 BP 117/71 12/03/18 15:10 Pulse Ox 93 12/03/18 15:10 Constitutional: + morbidly obese; no acute distress and not ill appearing ENMT: external ear and nose normal, oropharynx normal Respiratory: normal respiratory effort, lungs clear to auscultation Cardiovascular: RRR, no murmur, no edema Heart Sounds: normal S1 and normal S2 Vessels: posterior tibial pulses present and dorsalis pedis pulses present; no JVD Gastrointestinal (Abdomen): normal bowel sounds, soft, nontender, no hepatosplenomegaly Neurologic: no focal motor deficits (strength 5/5 b/l LEs) Psychiatric: Orientation: alert and oriented x 3 Results & Data Laboratory Results Laboratory Results - last 24 hr 12/02/18 12/03/18 12/03/18 20:45 08:14 12:10 POC Glucose 158 H 138 H 219 H 12/03/18 16:57 POC Glucose 150 H (1) Sleep apnea Sleep apnea type: obstructive Qualified Code(s): G47.33 - Obstructive sleep apnea (adult) (pediatric) (2) Diabetes Diabetes mellitus complication status: without complication Diabetes mellitus termite helper insulin use: with halfway use Diabetes mellitus type: type 2 Qualified Code(s): E11.9 - Type 2 diabetes mellitus without complications; Z79.4 - ferry terminal agent (current) use of insulin (3) Depression Active/Remission status: remission status unspecified Depression Type: major depressive disorder Major depression recurrence: unspecified whether recurrent Qualified Code(s): F32.9 - Major depressive disorder, single episode, unspecified (4) Hypothyroid Hypothyroidism type: unspecified Qualified Code(s): E03.9 - Hypothyroidism, unspecified (5) Hypertension Hypertension type: unspecified Qualified Code(s): I10 - Essential (primary) hypertension (6) Asthma Asthma complication type: uncomplicated Asthma persistence: intermittent Asthma severity: mild Qualified Code(s): J45.20 - Mild intermittent asthma, uncomplicated
[2018-12-03] MEDS: VENLAFAXINE HCL XR 150 MG CAPXR PO SCH (21:33)
[2018-12-03] MEDS: BENZTROPINE MESYLATE 1 MG TAB PO SCH (21:33)
[2018-12-03] MEDS: clonazePAM 1 MG TAB PO SCH (21:34)
[2018-12-03] MEDS: VENLAFAXINE HCL XR 75 MG CAPXR PO SCH (21:34)
[2018-12-03] MEDS: LURASIDONE HCL 40 MG TAB PO SCH (21:34)
[2018-12-03] MEDS: SENNA 8.6 MG TAB PO SCH (21:35)
[2018-12-03] MEDS: QUETIAPINE FUMARATE 300 MG TABLET PO SCH (21:35)
[2018-12-03] MEDS: INSULIN GLARGINE SOLOSTAR 100 UNITS/ML 3 ML PEN SQ SCH (21:42)
[2018-12-04] MEDS: LEVOTHYROXINE SODIUM 200 MCG TABLET PO SCH (06:01)
[2018-12-04 07:34] LABS: BUN Creatinine Ratio 13.8 (10-20); Calcium 8.8 mg/dl (8.5-10.1); Creatinine Clr Calc Pharmacy 76.7 ml/min; Est GFR (African American) 66.9; Est GFR (Non-African American) 57.7; Potassium 3.9 mmol/L (3.5-5.1)
[2018-12-04] MEDS: INSULIN ASPART 100 UNITS/ML 3 ML PEN SC SCH (09:37)
[2018-12-04] MEDS: LOSARTAN POTASSIUM 50 MG TAB PO SCH (09:38)
[2018-12-04] MEDS: BENZTROPINE MESYLATE 0.5 MG TAB PO SCH (09:39)
[2018-12-04] MEDS: BusPIRone 15 MG TAB PO SCH (09:39)
[2018-12-04] MEDS: FERROUS SULFATE 325 MG TAB PO SCH (09:39)
[2018-12-04] MEDS: PANTOprazole 40 MG TAB PO SCH (09:39)
[2018-12-04] MEDS: CALCIUM 600MG + VIT D 400 IU TAB PO SCH (09:39)
[2018-12-04] MEDS: ATORVASTATIN 40 MG TAB PO SCH (09:39)
[2018-12-04] MEDS: CHOLECALCIFEROL 1,000 UNITS TAB PO SCH (09:40)
[2018-12-04] MEDS: QUETIAPINE FUMARATE 25 MG TABLET PO SCH (09:40)
[2018-12-04] MEDS: POLYETHYLENE (MIRALAX) 17 GM PACK PO SCH (09:40)
[2018-12-04] MEDS: clonazePAM 0.5 MG TAB PO SCH (09:42)
[2018-12-04] MEDS: PREGABALIN 150 MG CAP PO SCH (09:43)
--- NOTE | 2018-12-12 21:02 | Discharge Summary ---
Date of Service date of admission - 11/30/18 date of discharge - 12/04/18 Admission HPI Per Admitting Provider Patient is a 58yo female with multiple medical problems presenting with back pain. MRI performed today which revealed a large epidural fluid collection concerning for hematoma, less likely infection. Patient is on Plavix for history of DVT. Patient states that she has had chronic back pain for years which has been progressively worsening since October after she fell in her bathtub. She was taking Meloxicam for the pain but it has not been working. She denies numbness or tingling in her lower extremities. She has a stable chronic LE weakness that she reports as unchanged. No bowel or bladder complaints. She denies fevers/chills/sweats/malaise or recent illness. No additional complaints at this time. Principal Diagnosis epidural hematoma treated nonoperatively Discharge Exam Constitutional + morbidly obese; no acute distress and not ill appearing ENMT external ear and nose normal, oropharynx normal Respiratory normal respiratory effort, lungs clear to auscultation Cardiovascular RRR, no murmur, no edema Heart Sounds: normal S1 and normal S2 Vessels: posterior tibial pulses present and dorsalis pedis pulses present; no JVD Gastrointestinal (Abdomen) normal bowel sounds, soft, nontender, no hepatosplenomegaly Musculoskeletal Spine: + lumbar spinal tenderness and + paraspinal tenderness Neurologic no focal motor deficits (strength 5/5 b/l LEs) Psychiatric Orientation: alert and oriented x 3 Discharge Data Allergies Allergy/AdvReac Type Severity Reaction Status Date / Time adhesive Allergy Unknown TAPE Verified 11/30/18 13:59 Aminoglycosides Allergy Unknown . Verified 11/30/18 13:59 bacitracin Allergy Unknown RASH Verified 11/30/18 13:59 Cephalosporins Allergy Unknown KEFLEX Verified 11/30/18 13:59 Cipro Allergy Unknown EYE Verified 11/17/17 09:11 SWELLING ciprofloxacin Allergy Unknown EYE Verified 11/30/18 13:59 SWELLING clavulanic acid Allergy Unknown . Verified 11/30/18 13:59 erythromycin base Allergy Unknown HIVES Verified 11/30/18 13:59 hydroxyzine Allergy Unknown PT DOESN'T Verified 11/30/18 13:59 REMEMBER REACTION minocycline Allergy Unknown HIVES Verified 11/30/18 13:59 mivacurium Allergy Unknown HIVES Verified 11/30/18 13:59 mupirocin Allergy Unknown RASH Verified 11/30/18 13:59 neomycin Allergy Unknown RASH Verified 11/30/18 13:59 Penicillins Allergy Unknown HIVES Verified 11/30/18 13:59 polymyxin B Allergy Unknown RASH Verified 11/30/18 13:59 Quinolones Allergy Unknown LEVAQUIN Verified 11/30/18 13:59 tetracycline Allergy Unknown HIVES Verified 11/30/18 13:59 topiramate Allergy Unknown SOB,DIZZINE Verified 11/30/18 13:59 SS aspirin AdvReac Intermediate NOSEBLEEDS- Verified 11/30/18 13:59 CAN TAKE IBUPROFEN Consultations orthopedics - [facility] Manuel Clemons DO PT, OT Procedures Performed MRI lumbar spine- IMPRESSION: 1. Large epidural fluid collection, most pronounced anteriorly, also extends into the posterior epidural space and measures up to 0.8 x 2.7 x 12.2 cm. This is suggestive of a probable epidural hematoma with epidural abscess considered less likely, however, also within the differential. Correlate clinically. 2. 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 3. Multilevel foraminal narrowing as above. 4. No acute fracture, subluxation or focal bone marrow edema. Hospital Course (1) Epidural hematoma: The patient's plavix was held at time of admission. She was admitted for pain control and serial neurological exams along with spine/orthopedic consultation. Dr. Victor Manuel Clemons from orthopedics saw the patient in consult and recommended nonoperative management. It is suspected that she may have developed this hematoma when she fell in her bathtub at home in 10/2018 (in the setting of taking plavix). Her pain medication was adjusted as needed while hospitalized. She was seen by PT & OT; both felt she was appropriate for discharge home when medically ready. Serial neurological exams of the lower extremities remained normal. She never had bowel or bladder incontinence. She never had fever or infectious symptoms to suggest that the hematoma was an epidural abscess. Dr. Clemons advised outpatient follow-up in 1 week post-discharge with repeat MRI of the lumbar spine at that time. She was discharged to home with a supply of hydrocodone for pain relief. She was asked to continue holding her plavix and avoid all NSAIDs for now. (2) Morbid obesity with BMI of 45.0-49.9, adult: BMI 46 (3) Hypothyroid: cont synthroid most recent TSH 1.3 in 08/2018 (4) Depression: followed by psychiatry she will continue all home medications as previous (5) Diabetes: control was largely acceptable while hospitalized. she will continue her lantus, novolog with meals, and metformin as previous. (6) Hypertension: controlled during her stay. she will continue her home meds as previous. (7) Asthma: no issues during the hospitalization. (8) Sleep apnea: continue CPAP at HS Total Time Total Time Spent Total Time Spent (In Minutes): 35 Total Time Includes: Examination of the Patient, Discharge Planning, Medication Reconciliation and Communication With Other Providers Discharge Plan Discharge Items Patient Disposition: Home - Self-Care Reason For Visit: BACK PAIN, EPIDURAL HEMATOMA Discharge Diagnosis: Back pain due to epidural hematoma - managed conservatively with pain medication. Discharge Goals: Decrease discomfort and Therapeutic intervention Activity: As commented below Activity Comment: no strenuous activities until cleared by orthopedics Lifting Comment: no lifting over 20 pounds Driving/Machine Use Comment: OK TO DRIVE LONG YOU ARE NOT TAKING NARCOTIC PAIN MEDICATION Non-emergency contact: Primary Care Provider and Surgeon Call non-emergency contact if: you have any medication questions, your pain is not controlled, your pain is worsening and your temperature is above 100.5 Follow-up/Referrals: Pro,Ethan Lock MD [Primary Care Provider] - Thomas Clemons DO [Surgeon] - (SEE DR. CLEMONS - BACK SURGEON - WITHIN 5-7 DAYS. YOU WILL NEED A REPEAT MRI AT THAT TIME. ) Diet: Carb Consistent or DM2 Addtl Provider Instructions: From Gopi Buckner - Hospitalist: You were diagnosed with an epidural hematoma. This is a collection of blood in your back along the spine. It is possible it started when you traumatized your back from the fall in the bath tub. You were seen by Dr. Victor Manuel Clemons, spine surgeon, who recommended conservative treatment of the hematoma. In other words he recommended against surgery at this time. The hope is that this will resolve over time without any intervention. We recommend discontinuation and avoidance of the following medications: * plavix (clopidogrel) * mobic (meloxicam) * qcqb-[id number]-zieneiw anti-inflammatory pills including aspirin, motrin, ibuprofen, naprosyn, alleve, etc All of these medications could potentially worsen the bleeding in your back. For pain you may take hydrocodone-acetaminophen 1 tablet every 4 hours as needed. This product contains tylenol so DO NOT take any additional [id number] tylenol while taking the narcotic pain killer. The hydrocodone WILL make you constipated so stay on a bowel regimen of senakot with miralax. The hydrocodone can impair you and make you drowsy; thus, NO DRIVING while taking narcotic pain killers and NO alcohol use. Follow-up -- see Dr. Clemons within 5-7 days in his office. You will need a repeat MRI scan of your back. Follow-up with your family doctor within 1 week as well. Return to [facility] if -- * you have fevers over 100.5 degrees * you have worsening pain in your back despite taking the pain pills * you have weakness of the legs OR worsening numbness of the legs OR you have difficulty walking * you have incontinence of the bowels and bladder (you cannot control your urine and stool) * any other concerns Prescriptions: New sennosides [Senokot] 8.6 mg Tablet 17.2 mg PO HS Qty: 60 RF: 0 hydrocodone-acetaminophen [Billings] 10-325 mg Tablet 1 tab PO Q4H PRN (Reason: pain) Qty: 30 RF: 0 Continued levothyroxine [Synthroid] 200 mcg tablet 200 mcg PO DAILY RF: 0 buspirone 15 mg tablet 15 mg PO BID RF: 0 losartan [Cozaar] 50 mg tablet 50 mg PO DAILY RF: 0 venlafaxine [Effexor XR] 75 mg capsule,extended release 24hr 75 mg PO HS RF: 0 venlafaxine [Effexor XR] 150 mg capsule,extended release 24hr 300 mg PO HS RF: 0 cyanocobalamin (vitamin B-12) [Vitamin B-12] 1,000 mcg Tablet 1,000 mcg PO DAILY RF: 0 calcium carbonate [Calcium 600] 600 mg calcium (1,500 mg) Tablet 600 mg PO BID RF: 0 ferrous sulfate [iron] 325 mg (65 mg iron) Tablet 325 mg PO BID RF: 0 benztropine 1 mg tablet 0.5 mg PO QAM RF: 0 benztropine 1 mg tablet 1 mg PO HS RF: 0 metformin [Glucophage XR] 500 mg tablet extended release 24 hr 1,000 mg PO BID RF: 0 Lyrica 150 mg capsule 150 mg PO TID RF: 0 Lantus Solostar U-100 Insulin 100 unit/mL (3 mL) insulin pen 60 units subcut HS RF: 0 Dexilant 60 mg capsule,biphase delayed releas 60 mg PO DAILY RF: 0 Trulicity 0.75 mg/0.5 mL pen injector 1 dose subcut WK RF: 0 atorvastatin [Lipitor] 80 mg tablet 80 mg PO DAILY RF: 0 multivitamin Tablet 1 tab PO DAILY RF: 0 cholecalciferol (vitamin D3) [Vitamin D3] 2,000 unit capsule 1 cap PO DAILY RF: 0 Latuda 40 mg tablet 40 mg PO HS RF: 0 Latuda 80 mg tablet 80 mg PO HS RF: 0 quetiapine 300 mg tablet 1 tab PO HS RF: 0 quetiapine 50 mg tablet 50 mg PO AMHS RF: 0 Novolog Flexpen U-100 Insulin 100 unit/mL insulin pen 1 dose subcut DIRECTED RF: 0 ropinirole 1 mg tablet PO RF: 0 ranitidine HCl 300 mg tablet 300 mg PO DAILY RF: 0 prazosin 1 mg capsule 1 mg PO DAILY RF: 0 sucralfate 1 gram tablet 1 tab PO TID RF: 0 polyethylene glycol 3350 17 gram/dose powder 1 - 2 dose PO DAILY RF: 0 albuterol sulfate [Ventolin HFA] 90 mcg/actuation HFA aerosol inhaler 1 - 2 puff Inhalation Q4H PRN (Reason: Unknown) RF: 0 prazosin 2 mg capsule 2 mg PO DAILY RF: 0 clonazepam 0.5 mg tablet 0.25 mg PO BID RF: 0 clonazepam 0.5 mg tablet 2 tab PO HS RF: 0 Advair HFA 115-21 mcg/actuation HFA aerosol inhaler RF: 0 Discontinued clopidogrel [Plavix] 75 mg tablet 75 mg PO DAILY RF: 0 meloxicam [Mobic] 7.5 mg tablet 7.5 mg PO BID PRN (Reason: Pain) RF: 0 Stand-Alone Forms: [facility] Discharge Orders: Discharge Order (Routine); Ordered 12/04/18 Ordered By: Gopi Buckner Admission Data Admit Date/Time: 11/30/18 15:01 Attending Provider: Gopi Buckner Admit Provider: Cally Beck Primary Care Provider: Ethan Karimi Other Providers: Cally Beck ; Thomas Clemons Service: Surgical Services Other Interventions: Discharge Summary Assessment (RN) Last Done: 12/04/18 11:26 Pending Studies at Discharge: No DC Date/Time DO NOT enter until pt leaves facility: 12/04/18 13:30
== END 2018-12-04 13:30 | disposition home or self-care (01) | DRG 52 ==
LOC: ED 12:09 → SUATTDRO 15:01 → 3N 15:01

== ENCOUNTER 2019-06-27 12:33 | Inpatient (IN) ==
--- NOTE | 2019-06-27 13:37 | CT Scan Report ---
CT head/brain wo con CLINICAL HISTORY: 59 years-old Female with Stroke evaluation . Acute strokelike symptoms TECHNIQUE: Multiple axial CT images of the head were obtained without contrast. A dose lowering tech nique was utilized adhering to the principles of ALARA. CT DOSE: 537.48 mGy.cm COMPARISON: Head CT 06/05/2009. FINDINGS: No acute intracranial hemorrhage, midline shift, intracranial mass, hydrocephalus, territorial ischem ia or abnormal extra-axial collection. Patchy white matter hypodensities have progressively worsened from comparison study. The calvarium is intact. Prior bilateral cataract repair. The paranasal sinuses, mastoid air cells, a nd middle ear cavities are clear. IMPRESSION: 1. No acute intracranial abnormality identified. 2. Patchy white matter hypodensities have progressively worsened from 06/05/2009 which are nonspecific. Statistically, this would most likely represent chronic microvascular ischemic disease with underlyi ng demyelination among other etiologies also within the differential. Correlate with clinical history . The above report was generated using voice recognition software. It may contain grammatical, syntax o r spelling errors. Electronically signed by: Jayson Stanford M.D. 06/27/2019 1:36 PM
[2019-06-27 14:00] LABS: Basophils # (auto) 0.03 K/uL (0-0.2); Basophils % (auto) 0.4 %; Eosinophils # (auto) 0.19 K/uL (0-0.5); Eosinophils % (auto) 2.6 %; Hematocrit (blood only) 37.7 % (37-47); Hemoglobin 12.5 g/dL (12.0-16.0); Immature Granulocytes # (auto) 0.01 K/uL (0.00-0.02); Immature Granulocytes % (auto) 0.1 %; Lymphocytes # (auto) 1.55 K/uL (1.2-3.4); Mean Corpuscular Hemoglobin 29.1 pg (25-34); Mean Corpuscular Hgb Conc 33.2 g/dL (32-36); Mean Corpuscular Volume 87.9 fL (80-100); Mean Platelet Volume 10.3 fL (7.4-10.4); Monocytes # (auto) 0.38 K/uL (0.11-0.59); Monocytes % (auto) 5.1 %; Neutrophils # (auto) 5.22 K/uL (1.4-6.5); Neutrophils % (auto) 70.8 %; Platelet Count 210 K/uL (130-400); RDW Coefficient of Variation 14.6 % (11.5-14.5); Red Blood Count 4.29 M/uL (4.2-5.4); White Blood Count 7.38 K/uL (4.8-10.8)
[2019-06-27 14:09] LABS: INR 1.1 (0.9-1.1); Partial Thromboplastin Ratio 0.8; Partial Thromboplastin Time 22.6 Seconds (21.0-31.0); Prothrombin Time 11.4 Seconds (9.0-12.0)
[2019-06-27 14:24] LABS: Acetaminophen < 2 ug/ml (10-30); Salicylate < 1.7 mg/dl (2.8-20)
[2019-06-27 14:27] LABS: Alanine Aminotransferase 30 U/L (12-78); Albumin Globulin Ratio 0.9 (0.9-2); Albumin Level 3.4 gm/dl (3.4-5.0); Alkaline Phosphatase 94 U/L (45-117); BUN Creatinine Ratio 7.8 (10-20); Bilirubin,Total 0.4 mg/dl (0.2-1); Blood Urea Nitrogen 8 mg/dl (7-18); Calcium 9.3 mg/dl (8.5-10.1); Carbon Dioxide 27 mmol/L (21-32); Chloride 106 mmol/L (98-107); Est GFR (African American) 67.2; Est GFR (Non-African American) 57.9; Globulin 3.6 gm/dl (2.5-4.0); Glucose 146 mg/dl (70-99); Troponin I < 0.015 ng/ml (0-0.045)
[2019-06-27 14:31] LABS: Potassium 4.1 mmol/L (3.5-5.1); Sodium 143 mmol/L (136-145)
[2019-06-27] MEDS ORDERED: OPTIRAY 320 125ml IV PRN (14:42)
[2019-06-27 14:49] LABS: Aspartate Aminotransferase 16 U/L (15-37); Magnesium 1.4 mg/dl (1.8-2.4)
--- NOTE | 2019-06-27 14:57 | CT Scan Report ---
CT angio head w con CLINICAL HISTORY: 59 years-old Female presenting with ams, eval for cva. TECHNIQUE: Multidetector CT angiography of the head was performed after the administration of intrave nous contrast. 3-D volumetric and/or maximum intensity projection (MIP) images were subsequently mary nstructed for review. IV contrast: 119 mL of Optiray 320. One or more dose lowering techniques were u sed consistent with the principles of ALARA (as low as reasonably achievable), including automatic ex posure control, mA or kV adjustment to individual patient size, and/or use of iterative reconstructio n. COMPARISON: 06/27/2019. CT DOSE (mGy.cm): The estimated cumulative dose is 794.27. FINDINGS: Audio Production Instructor topogram: Unremarkable. Anterior circulation: Intracranial portions of the internal carotid arteries patent to the level of t he termini. Anterior cerebral arteries patent. Middle cerebral arteries patent. Anterior communicatin g artery patent. Posterior circulation: Codominant vertebral arteries. Intradural portions of the vertebral arteries p atent. Posterior inferior cerebellar arteries patent. Basilar artery patent. Anterior inferior cerebe llar arteries poorly visualized. Superior cerebellar arteries patent. Posterior cerebral arteries pat ent. Posterior communicating arteries patent. Dural venous sinuses: Patent. Other: Allowing for the phase of contrast, brain parenchyma within normal limits. Calvarium intact. IMPRESSION: 1. No evidence of aneurysm, focal vessel occlusion, or significant stenosis of the intracranial pancho mayra. Electronically signed by: Ulises Mcfarland M.D. 06/27/2019 2:56 PM
--- NOTE | 2019-06-27 14:57 | CT Scan Report ---
CT ANGIOGRAM OF THE NECK CLINICAL HISTORY: Change in mental status. Stroke like symptoms. COMPARISON STUDY: Carotid artery ultrasound dated 10/01/2007. TECHNIQUE: Following the IV administration of 119 of Optiray 320, CT angiogram of the neck was perfor med from the aortic arch to the skull base. Images are reviewed in the axial, sagittal, and coronal p lanes. 3-D MIPS images are created and assessed. IV contrast was administered without complication. A ll measurements were calculated based on NASCET criteria. A dose lowering technique was utilized adh ering to the principles of ALARA. CT DOSE: 794.27 mGy.cm FINDINGS: Thoracic aorta: Visualized portions of the thoracic aorta are normal in caliber. The aortic arch demo nstrates standard 3-vessel anatomy. Right carotid arterial system: The right common carotid artery is widely patent, as are the right int ernal and external carotid arteries. Left carotid arterial system: The left common carotid artery is widely patent, as are the left public health internship al and external carotid arteries. Mild atherosclerotic calcification is noted in the carotid bulb. Vertebral arteries: The vertebral arteries are patent bilaterally and codominant. Intracranial vasculature: The partially visualized intracranial vessels at the skull base are patent. Subclavian arteries: Widely patent bilaterally. Jugular veins: Widely patent bilaterally. Brain parenchyma: The visualized brain parenchyma the skull base is within normal limits. Lung apices: Partially visualized upper lobe lung parenchyma appears clear. Soft tissues: The visualized pharyngeal soft tissues are normal in appearance noting angiographic pha se technique. The oropharyngeal airway appears widely patent. The thyroid gland is enlarged and heter ogeneous. There are numerous thyroid nodules. A dominant nodule in the right lobe measures 3 cm. The salivary glands are normal in appearance. No cervical lymphadenopathy is seen. There are calcified me diastinal lymph nodes. Skeletal structures: The visualized calvarium at the skull base appears intact. The imaged cervical s pine is within normal limits. IMPRESSION: Normal CT angiogram of the neck. Electronically signed by: Gaurav Fisher M.D. 06/27/2019 2:56 PM
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
[2019-06-27] MEDS ORDERED: GLUCOSE 40% GEL 15 GM TUBE PO PRN (18:11)
[2019-06-27] MEDS ORDERED: MAGNESIUM HYDROXIDE SUSP 30 ML UDC PO PRN (18:11)
[2019-06-27] MEDS ORDERED: ACETAMINOPHEN 325 MG TAB PO PRN (18:11)
[2019-06-27] MEDS ORDERED: CARBOHYDRATES FOR HYPOGLYCEMIA PO PRN (18:11)
[2019-06-27] MEDS ORDERED: ONDANSETRON INJ 2 MG/ML 2 ML VIAL IV PRN (18:11)
[2019-06-27] MEDS ORDERED: PHARMACIST DISCHARGE MED REC CONSULT PRN (18:11)
[2019-06-27] MEDS ORDERED: GLUCOSE 10 TABS/TUBE PO PRN (18:11)
[2019-06-27] MEDS ORDERED: ALBUTEROL HFA 8 GM INHALER INH PRN (18:11)
[2019-06-27] MEDS ORDERED: GLUCAGON FOR INJ 1 MG VIAL SQ PRN (18:11)
[2019-06-27] MEDS ORDERED: DEXTROSE 50% 50 ML SYRINGE IV PRN (18:11)
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
[2019-06-27 19:43] LABS: Amphetamines+Metham, Urine Neg (Neg); Barbiturates, Urine Neg (Neg); Benzodiazepine, Urine Neg (Neg); Cocaine, Urine Neg (Neg); MDMA (Ecstacy), Urine Neg (Neg); Methadone, Urine Neg (Neg); Opiate, Urine Neg (Neg); Phencyclidine, Urine Neg (Neg)
[2019-06-27 19:47] LABS: Lyme Ab IgG w/WB Rflx Negative (Negative); Lyme Ab IgM w/WB Rflx Negative (Negative)
[2019-06-27] MEDS: POLYETHYLENE (MIRALAX) 17 GM PACK PO SCH (19:47)
[2019-06-27] MEDS: FLUTICASONE/SALMETEROL 250/50 (ADVAIR) 14 PUFF/1 INHALER INH SCH (20:05)
[2019-06-27] MEDS: ATORVASTATIN 40 MG TAB PO SCH (20:06)
[2019-06-27] MEDS: VENLAFAXINE HCL XR 150 MG CAPXR PO SCH (20:07)
[2019-06-27] MEDS: ROPINIROLE HCL 1 MG TABLET PO SCH (20:07)
[2019-06-27] MEDS: FERROUS SULFATE 325 MG TAB PO SCH (20:07)
[2019-06-27] MEDS: BusPIRone 15 MG TAB PO SCH (20:07)
[2019-06-27] MEDS: QUETIAPINE FUMARATE 300 MG TABLET PO SCH (20:07)
[2019-06-27] MEDS: PRAZOSIN HCL 1 MG CAP PO SCH (20:07)
[2019-06-27] MEDS: INSULIN GLARGINE SOLOSTAR 100 UNITS/ML 3 ML PEN SQ SCH (20:12)
[2019-06-27] MEDS: INSULIN ASPART 100 UNITS/ML 3 ML PEN SC SCH (20:13)
[2019-06-27] MEDS: clonazePAM 1 MG TAB PO SCH (20:16)
[2019-06-27] MEDS: PREGABALIN 150 MG CAP PO SCH (20:17)
[2019-06-27] MEDS: BENZTROPINE MESYLATE 1 MG TAB PO SCH (20:22)
--- NOTE | 2019-06-27 22:50 | Magnetic Resonance Report ---
Brain MRI WITHOUT CONTRAST HISTORY: confusion TECHNIQUE: Multiplanar multisequence MRI of the brain was performed without the use of contrast. COMPARISON STUDY: Head CT 06/27/2019. Brain MRI 08/13/2009. FINDINGS: Motion artifact. No areas of restricted diffusion to suggest acute infarction. The midline structures appear intact. There is no mass, hematoma, midline shift, or acute infarct. The major vasc ular flow-voids at the skull base are well-maintained. The ventricles and sulci are within normal larson its for age. The paranasal sinuses and mastoid air cells are clear. Scattered foci of T2 hyperintensi ty seen within the periventricular and subcortical white matter of the supratentorial brain are again noted. These have progressed in the interval. IMPRESSION: 1. No acute intracranial abnormality. 2. Scattered foci of T2 hyperintensity seen within the periventricular and subcortical white matter o f the supratentorial brain are again noted. These have progressed in the interval. These are nonspeci fic but could represent moderate microvascular ischemic change. A demyelinating disease, Lyme disease , or migraines can also have a similar appearance in the appropriate clinical setting. Electronically signed by: Scout Santana M.D. 06/27/2019 10:48 PM
[2019-06-28] MEDS: LEVOTHYROXINE SODIUM 200 MCG TABLET PO SCH (06:01)
[2019-06-28] MEDS: SUCRALFATE 1 GM TAB PO SCH ×3 (06:02→17:59)
[2019-06-28 06:35] LABS: Estimated Average Glucose 237 mg/dl; Hemoglobin A1C 9.9 % (4.5-5.6)
[2019-06-28 06:57] LABS: Basophils # (auto) 0.02 K/uL (0-0.2); Basophils % (auto) 0.3 %; Eosinophils # (auto) 0.19 K/uL (0-0.5); Eosinophils % (auto) 2.7 %; Hematocrit (blood only) 36.3 % (37-47); Hemoglobin 11.8 g/dL (12.0-16.0); Immature Granulocytes # (auto) 0.01 K/uL (0.00-0.02); Immature Granulocytes % (auto) 0.1 %; Lymphocytes % (auto) 30.3 %; Mean Corpuscular Hgb Conc 32.5 g/dL (32-36); Mean Corpuscular Volume 89.2 fL (80-100); Mean Platelet Volume 10.2 fL (7.4-10.4); Monocytes # (auto) 0.42 K/uL (0.11-0.59); Monocytes % (auto) 6.1 %; Neutrophils % (auto) 60.5 %; Platelet Count 195 K/uL (130-400); RDW Coefficient of Variation 14.8 % (11.5-14.5); RDW Standard Deviation 47.9 fL (36.4-46.3); Red Blood Count 4.07 M/uL (4.2-5.4); White Blood Count 6.94 K/uL (4.8-10.8)
[2019-06-28 07:35] LABS: BUN Creatinine Ratio 8.4 (10-20); Blood Urea Nitrogen 11 mg/dl (7-18); Calcium 8.7 mg/dl (8.5-10.1); Carbon Dioxide 28 mmol/L (21-32); Chloride 105 mmol/L (98-107); Est GFR (African American) 51.8; Est GFR (Non-African American) 44.7; Glucose 200 mg/dl (70-99); Potassium 3.8 mmol/L (3.5-5.1); Sodium 141 mmol/L (136-145)
[2019-06-28 07:37] LABS: Estimated Average Glucose 237 mg/dl; Hemoglobin A1C 9.9 % (4.5-5.6)
[2019-06-28 07:47] LABS: Chol HDL Ratio 3; Cholesterol 116 mg/dl (0-200); HDL Cholesterol 44 mg/dl; LDL Cholesterol Calculated 47 mg/dl; Triglycerides 123 mg/dl (0-150); VLDL Cholesterol 25 mg/dl
[2019-06-28] MEDS: INSULIN ASPART 100 UNITS/ML 3 ML PEN SC SCH ×4 (08:24→21:47)
[2019-06-28] MEDS: BENZTROPINE MESYLATE 0.5 MG TAB PO SCH (08:25)
[2019-06-28] MEDS: FERROUS SULFATE 325 MG TAB PO SCH ×2 (08:25→21:50)
[2019-06-28] MEDS: QUETIAPINE FUMARATE 25 MG TABLET PO SCH ×2 (08:25→13:33)
[2019-06-28] MEDS: CHOLECALCIFEROL (VITAMIN D) 400 UNITS TABLET PO SCH (08:25)
[2019-06-28] MEDS: CYANOCOBALAMIN 500 MCG TABLET (VITAMIN B-12) PO SCH (08:25)
[2019-06-28] MEDS: FLUTICASONE/SALMETEROL 250/50 (ADVAIR) 14 PUFF/1 INHALER INH SCH ×2 (08:25→21:47)
[2019-06-28] MEDS: PANTOprazole 40 MG TAB PO SCH (08:25)
[2019-06-28] MEDS: BusPIRone 15 MG TAB PO SCH ×2 (08:25→21:50)
[2019-06-28] MEDS: LOSARTAN POTASSIUM 50 MG TAB PO SCH (08:26)
[2019-06-28] MEDS: POLYETHYLENE (MIRALAX) 17 GM PACK PO SCH (08:26)
[2019-06-28] MEDS: PREGABALIN 150 MG CAP PO SCH ×3 (08:30→21:52)
[2019-06-28] MEDS: clonazePAM 0.5 MG TAB PO SCH ×2 (08:30→13:33)
[2019-06-28] MEDS ORDERED: CLOPIDOGREL BISULFATE 75 MG TAB PO SCH (09:00)
[2019-06-28] MEDS ORDERED: MAGNESIUM SULFATE / D5W 1 GM/100 ML BAG IV ONE (09:30)
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
--- NOTE | 2019-06-28 20:16 | Hospitalist Progress Note ---
Date of Service June 28, 2019 Assessment & Plan (1) Confusion: MRI brain neg for stroke. No infectious or metabolic abnormalities/issues at this time. I asked Dr Gonsalez to see in consult due to MRI findings showing extensive periventricular disease on MRI. He feels it is microvascular in etiology - not MS, lyme's, etc. Suspect that her confusion/memory lapses/"shakiness"/etc is due to recent med changes in the context of severe, long-standing MDD (uncertain if she has other major psych diagnoses). spoke with psych - asked them to consult. clearly having hallucinations/psychosis. cont prior psych meds - defer management to them. (2) Hypothyroid: continue home meds TSH wnl (3) Depression: MDD see above in "confusion" Follows with Dr. 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 This includes certification that hospital inpatient services are reasonable and necessary and in the case of services not specified as inpatient-only under 42 CFR 419.22(n), that they are appropriately provided as inpatient services in accordance to with the 2-midnight benchmark under 43 CFR 412.3(e) Subjective patient states that in the last 1-2 weeks she has intermittently seen "the stalking man". this is a visual hallucination. he is dressed in blue and simply stares at her when she has this hallucination. she also thought her brother was sitting in the chair next to the bed today but he was never present in actuality today. admits to severe depression present for years. having episodes of memory loss but she knows she is in the hospital, that it is 2019, etc. tele overnight normal. Review of Systems Constitutional: no fever Respiratory: no cough and no dyspnea Cardiovascular: no chest pain Gastrointestinal: no abdominal pain, no nausea and no vomiting Physical Exam Constitutional: + morbidly obese; no acute distress ENMT: external ear and nose normal, oropharynx normal Respiratory: normal respiratory effort, lungs clear to auscultation Cardiovascular: Rate/Rhythm: regular rate and regular rhythm Heart Sounds: normal S1 and normal S2; no murmur Vessels: posterior tibial pulses present and dorsalis pedis pulses present; no JVD Extremities: no edema Gastrointestinal (Abdomen): normal bowel sounds, soft, nontender, no hepatosplenomegaly Skin: hemangioma - extensive - right leg Psychiatric: Orientation: alert and oriented x 3 Affect: + flat affect Results & Data Vital Signs (Past 12 Hours) Vital Signs Temp Pulse Pulse Resp BP Pulse Ox 06/28/19 19:24 37.3 C 88 18 125/77 91 06/28/19 15:14 37.1 C 91 H 18 111/61 95 06/28/19 11:07 36.9 C 71 18 109/70 93 06/28/19 09:05 85 Laboratory Results Laboratory Results - last 24 hr 06/27/19 06/27/19 06/28/19 13:44 20:06 00:18 WBC RBC Hgb Hct MCV MCH MCHC RDW Std Deviation RDW Coeff of Aleah Plt Count MPV Immature Gran % (Auto) Neut % (Auto) Lymph % (Auto) [place] % (Auto) Eos % (Auto) Baso % (Auto) Immature Gran # (Auto) Neut # (Auto) Lymph # (Auto) [place] # (Auto) Eos # (Auto) Baso # (Auto) Sodium Potassium Chloride Carbon Dioxide Anion Gap BUN Creatinine Est Cr Clr Drug Dosing Est GFR ( Amer) Est GFR (Non-Af Amer) BUN/Creatinine Ratio Glucose POC Glucose 187 H Estimat Average Glucose 237 Hemoglobin A1c 9.9 H Calcium Troponin I < 0.015 Triglycerides Cholesterol LDL Cholesterol, Calc VLDL Cholesterol, Calc HDL Cholesterol Cholesterol/HDL Ratio TSH 06/28/19 06/28/19 06/28/19 06:29 06:29 06:29 WBC 6.94 RBC 4.07 L Hgb 11.8 L Hct 36.3 L MCV 89.2 MCH 29.0 MCHC 32.5 RDW Std Deviation 47.9 H RDW Coeff of Aleah 14.8 H Plt Count 195 MPV 10.2 Immature Gran % (Auto) 0.1 Neut % (Auto) 60.5 Lymph % (Auto) 30.3 [place] % (Auto) 6.1 Eos % (Auto) 2.7 Baso % (Auto) 0.3 Immature Gran # (Auto) 0.01 Neut # (Auto) 4.20 Lymph # (Auto) 2.10 [place] # (Auto) 0.42 Eos # (Auto) 0.19 Baso # (Auto) 0.02 Sodium 141 Potassium 3.8 Chloride 105 Carbon Dioxide 28 Anion Gap 8.0 BUN 11 Creatinine 1.29 H Est Cr Clr Drug Dosing Not Reportable Est GFR ( Amer) 51.8 Est GFR (Non-Af Amer) 44.7 BUN/Creatinine Ratio 8.4 L Glucose 200 H POC Glucose Estimat Average Glucose 237 Hemoglobin A1c 9.9 H Calcium 8.7 Troponin I Triglycerides 123 Cholesterol 116 LDL Cholesterol, Calc 47 VLDL Cholesterol, Calc 25 HDL Cholesterol 44 Cholesterol/HDL Ratio 3 TSH 1.300 06/28/19 06/28/19 06/28/19 07:30 16:58 20:00 WBC RBC Hgb Hct MCV MCH MCHC RDW Std Deviation RDW Coeff of Aleah Plt Count MPV Immature Gran % (Auto) Neut % (Auto) Lymph % (Auto) [place] % (Auto) Eos % (Auto) Baso % (Auto) Immature Gran # (Auto) Neut # (Auto) Lymph # (Auto) [place] # (Auto) Eos # (Auto) Baso # (Auto) Sodium Potassium Chloride Carbon Dioxide Anion Gap BUN Creatinine Est Cr Clr Drug Dosing Est GFR ( Amer) Est GFR (Non-Af Amer) BUN/Creatinine Ratio Glucose POC Glucose 204 H 245 H 284 H Estimat Average Glucose Hemoglobin A1c Calcium Troponin I Triglycerides Cholesterol LDL Cholesterol, Calc VLDL Cholesterol, Calc HDL Cholesterol Cholesterol/HDL Ratio TSH PG Care Time/CCT Total # of Minutes Spent Total Time Spent with Patient: Total time spent is greater than 50% in coordination of care (as documented) at patient's floor/unit and/or counseling patient: (1) Sleep apnea Sleep apnea type: obstructive Qualified Code(s): G47.33 - Obstructive sleep apnea (adult) (pediatric) (2) Diabetes Diabetes mellitus complication status: without complication Diabetes mellitus long-term insulin use: with intermediate accountant use Diabetes mellitus type: type 2 Qualified Code(s): E11.9 - Type 2 diabetes mellitus without complications; Z79.4 - MCFP (current) use of insulin (3) Depression Active/Remission status: remission status unspecified Depression Type: major depressive disorder Major depression recurrence: unspecified whether recurrent Qualified Code(s): F32.9 - Major depressive disorder, single episode, unspecified (4) Hypothyroid Hypothyroidism type: unspecified Qualified Code(s): E03.9 - Hypothyroidism, unspecified (5) Hypertension Hypertension type: unspecified Qualified Code(s): I10 - Essential (primary) hypertension (6) Asthma Asthma complication type: uncomplicated Asthma persistence: intermittent Asthma severity: mild Qualified Code(s): J45.20 - Mild intermittent asthma, uncomplicated
[2019-06-28] MEDS ORDERED: METOPROLOL TARTRATE 1 MG/ML VIAL IV PRN (20:20)
[2019-06-28] MEDS ORDERED: METOPROLOL TARTRATE 1 MG/ML VIAL IV ONE (20:24)
[2019-06-28] MEDS ORDERED: ADENOSINE IV SOLN 3 MG/ML 2 ML VIAL IV STA (20:44)
[2019-06-28] MEDS: INSULIN GLARGINE SOLOSTAR 100 UNITS/ML 3 ML PEN SQ SCH (21:48)
[2019-06-28] MEDS: PRAZOSIN HCL 1 MG CAP PO SCH (21:49)
[2019-06-28] MEDS: ATORVASTATIN 40 MG TAB PO SCH (21:50)
[2019-06-28] MEDS: VENLAFAXINE HCL XR 150 MG CAPXR PO SCH (21:50)
[2019-06-28] MEDS: QUETIAPINE FUMARATE 300 MG TABLET PO SCH (21:50)
[2019-06-28] MEDS: BENZTROPINE MESYLATE 1 MG TAB PO SCH (21:50)
[2019-06-28] MEDS: ROPINIROLE HCL 1 MG TABLET PO SCH (21:51)
[2019-06-28] MEDS: clonazePAM 1 MG TAB PO SCH (21:52)
--- NOTE | 2019-06-29 04:39 | Family Medicine Progress Note ---
Date of Service June 28, 2019 Assessment & Plan (1) SVT (supraventricular tachycardia): Called by nurse on 06/28 around 20:30 with concerns of afib with RVR , HR 176. BP 130s/70s. Ordered 5 lopressor IV q5min prn. EKG obtained, which revealed SVT. Assessed patient at bedside, no complaints, no symptoms noted. Pt received 2 doses of lopressor without change in HR. Ordered 6mg adenosine, pt received at 21:16. Patient responded well, converting to NSR, EKG ordered/confirmed. Woodman no need to initiate anticoagulation at this time. Have ordered pt to start metoprolol tartrate 12.5 daily but will defer to day team for further management. Results & Data Vital Signs (Past 12 Hours) Vital Signs Temp Pulse Pulse Resp BP BP BP 06/29/19 03:53 97.9 F 82 20 112/62 06/29/19 00:45 82 20 06/29/19 00:22 98.6 F 83 20 137/83 06/29/19 00:00 83 06/28/19 22:39 82 06/28/19 22:17 82 14 06/28/19 21:28 124/83 06/28/19 21:20 79 153/90 H 06/28/19 21:19 153/90 H 06/28/19 21:12 157 H 123/85 06/28/19 21:08 160 H 116/83 06/28/19 20:26 176 H 134/85 06/28/19 20:20 98.8 F 173 H 18 137/83 06/28/19 19:24 99.1 F 88 18 125/77 Pulse Ox 06/29/19 03:53 92 06/29/19 00:45 96 06/29/19 00:22 96 06/29/19 00:00 06/28/19 22:39 06/28/19 22:17 94 06/28/19 21:28 06/28/19 21:20 06/28/19 21:19 06/28/19 21:12 06/28/19 21:08 06/28/19 20:26 06/28/19 20:20 90 06/28/19 19:24 91 PG Care Time/CCT Total # of Minutes Spent Total Time Spent with Patient: Total time spent is greater than 50% in coordination of care (as documented) at patient's floor/unit and/or counseling patient: Resident Activity Tracking Resident Involvement: Resident Care Provided and State Director Coverage Note Care Provided: Adult Hospital Medicine
[2019-06-29] MEDS: LEVOTHYROXINE SODIUM 200 MCG TABLET PO SCH (06:43)
[2019-06-29] MEDS: SUCRALFATE 1 GM TAB PO SCH ×3 (06:43→15:50)
[2019-06-29 08:06] LABS: BUN Creatinine Ratio 8.3 (10-20); Blood Urea Nitrogen 10 mg/dl (7-18); Calcium 9.2 mg/dl (8.5-10.1); Carbon Dioxide 30 mmol/L (21-32); Chloride 106 mmol/L (98-107); Est GFR (African American) 54.3; Est GFR (Non-African American) 46.8; Glucose 188 mg/dl (70-99); Magnesium 1.9 mg/dl (1.8-2.4); Potassium 3.7 mmol/L (3.5-5.1); Sodium 142 mmol/L (136-145)
[2019-06-29] MEDS: BusPIRone 15 MG TAB PO SCH ×2 (08:09→19:30)
[2019-06-29] MEDS: FLUTICASONE/SALMETEROL 250/50 (ADVAIR) 14 PUFF/1 INHALER INH SCH ×2 (08:09→19:27)
[2019-06-29] MEDS: LOSARTAN POTASSIUM 50 MG TAB PO SCH (08:10)
[2019-06-29] MEDS: BENZTROPINE MESYLATE 0.5 MG TAB PO SCH (08:10)
[2019-06-29] MEDS: FERROUS SULFATE 325 MG TAB PO SCH ×2 (08:11→19:31)
[2019-06-29] MEDS: clonazePAM 0.5 MG TAB PO SCH ×2 (08:11→14:08)
[2019-06-29] MEDS: PREGABALIN 150 MG CAP PO SCH ×3 (08:13→19:49)
[2019-06-29] MEDS: CHOLECALCIFEROL (VITAMIN D) 400 UNITS TABLET PO SCH (08:14)
[2019-06-29] MEDS: POLYETHYLENE (MIRALAX) 17 GM PACK PO SCH (08:14)
[2019-06-29] MEDS: CYANOCOBALAMIN 500 MCG TABLET (VITAMIN B-12) PO SCH (08:16)
[2019-06-29] MEDS: QUETIAPINE FUMARATE 25 MG TABLET PO SCH ×2 (08:16→14:08)
[2019-06-29] MEDS: PANTOprazole 40 MG TAB PO SCH (08:17)
[2019-06-29] MEDS: INSULIN GLARGINE SOLOSTAR 100 UNITS/ML 3 ML PEN SC SCH (08:19)
[2019-06-29] MEDS: INSULIN ASPART 100 UNITS/ML 3 ML PEN SC SCH ×5 (08:21→21:44)
[2019-06-29] MEDS ORDERED: METOPROLOL TARTRATE 25 MG TAB PO SCH (09:00)
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
[2019-06-29] MEDS ORDERED: LURASIDONE HCL 40 MG TAB PO ONE (18:55)
[2019-06-29] MEDS: BENZTROPINE MESYLATE 1 MG TAB PO SCH (19:30)
[2019-06-29] MEDS: VENLAFAXINE HCL XR 150 MG CAPXR PO SCH (19:32)
[2019-06-29] MEDS: ATORVASTATIN 40 MG TAB PO SCH (19:33)
[2019-06-29] MEDS: ROPINIROLE HCL 1 MG TABLET PO SCH (19:35)
[2019-06-29] MEDS: QUETIAPINE FUMARATE 300 MG TABLET PO SCH (19:35)
[2019-06-29] MEDS: PRAZOSIN HCL 1 MG CAP PO SCH (19:37)
[2019-06-29] MEDS: clonazePAM 1 MG TAB PO SCH (19:46)
--- NOTE | 2019-06-29 20:16 | Hospitalist Progress Note ---
Date of Service June 29, 2019 Assessment & Plan (1) SVT (supraventricular tachycardia): EKG last pm c/w SVT. s/p adenosine 6mg x 1 and went to NSR. no arrhythmias since. TSH, K, mag all normal. ordered echo - normal. NO SYMPTOMS FROM THE SVT - thus, unlikely to be contributing to recent "spells" of confusion, etc at home. could consider outpatient event monitor. agree with BB - will change to BID dosing. (2) Confusion: resolved. MRI brain neg for stroke. No infectious or metabolic abnormalities/issues at this time. I asked Dr Gonsalez to see in consult due to MRI findings showing extensive periventricular disease on MRI. He feels it is microvascular in etiology - not MS, lyme's, etc. Suspect that her confusion/memory lapses/"shakiness"/etc is due to recent med changes in the context of severe, long-standing MDD (uncertain if she has other major psych diagnoses). Psych consult appreciated. Cont prior psych meds - defer management to them. Likely will need inpatient psych treatment. From medical standpoint, if no further SVT, can likely go to psych next 24 hours. (3) Hypothyroid: continue home meds TSH wnl (4) Depression: MDD see above in "confusion" Follows with Dr. 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 Follows with [facility] (10) Iron deficiency: continue ferrous sulfate 325 BID recent H/H acceptable (11) Morbid obesity with BMI of 45.0-49.9, adult: (12) Hypomagnesemia: repleted and resolved (13) DVT prophylaxis: SCDs for now add lovenox 40mg daily await psych acceptance to [facility] Subjective hallucinations are better today she states she keeps ruminating about her parents - lost her dad in the 1970s and her mother a few years ago during the SVT spell she had NO symptoms denies palpitations, lightheadedness, dizziness, cp, dyspnea in fact, she stated, "about 5 people came in the room and I was wondering what was happening!" no new complaints Review of Systems Constitutional: no fever Respiratory: no cough and no dyspnea Cardiovascular: no chest pain Gastrointestinal: no abdominal pain Physical Exam Constitutional: + morbidly obese; no acute distress ENMT: external ear and nose normal, oropharynx normal Respiratory: normal respiratory effort, lungs clear to auscultation Cardiovascular: Rate/Rhythm: regular rate and regular rhythm Heart Sounds: normal S1 and normal S2; no murmur Vessels: posterior tibial pulses present and dorsalis pedis pulses present; no JVD Extremities: no edema Gastrointestinal (Abdomen): normal bowel sounds, soft, nontender, no hepatosplenomegaly Psychiatric: Orientation: alert and oriented x 3 Affect: + flat affect Results & Data Vital Signs (Past 12 Hours) Vital Signs Temp Pulse Pulse Resp BP BP Pulse Ox 06/29/19 19:18 37 C 74 20 111/63 94 06/29/19 15:04 37.1 C 73 19 139/79 93 06/29/19 11:09 37.1 C 80 20 136/84 92 06/29/19 08:36 81 Laboratory Results Laboratory Results - last 24 hr 06/28/19 06/29/19 06/29/19 11:22 06:57 07:36 Sodium 142 Potassium 3.7 Chloride 106 Carbon Dioxide 30 Anion Gap 6.0 BUN 10 Creatinine 1.24 H Est Cr Clr Drug Dosing Not Reportable Est GFR ( Amer) 54.3 Est GFR (Non-Af Amer) 46.8 BUN/Creatinine Ratio 8.3 L Glucose 188 H POC Glucose 227 H 176 H Calcium 9.2 Magnesium 1.9 Specimen Hemolysis 06/29/19 06/29/19 11:18 16:58 Sodium Potassium Chloride Carbon Dioxide Anion Gap BUN Creatinine Est Cr Clr Drug Dosing Est GFR ( Amer) Est GFR (Non-Af Amer) BUN/Creatinine Ratio Glucose POC Glucose 170 H 187 H Calcium Magnesium Specimen Hemolysis PG Care Time/CCT Total # of Minutes Spent Total Time Spent with Patient: Total time spent is greater than 50% in coordination of care (as documented) at patient's floor/unit and/or counseling patient: (1) Sleep apnea Sleep apnea type: obstructive Qualified Code(s): G47.33 - Obstructive sleep apnea (adult) (pediatric) (2) Diabetes Diabetes mellitus complication status: without complication Diabetes mellitus half-way insulin use: with half-way use Diabetes mellitus type: type 2 Qualified Code(s): E11.9 - Type 2 diabetes mellitus without complications; 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 (3) Depression Active/Remission status: remission status unspecified Depression Type: major depressive disorder Major depression recurrence: unspecified whether recurrent Qualified Code(s): F32.9 - Major depressive disorder, single episode, unspecified (4) Hypothyroid Hypothyroidism type: unspecified Qualified Code(s): E03.9 - Hypothyroidism, unspecified (5) Hypertension Hypertension type: unspecified Qualified Code(s): I10 - Essential (primary) hypertension (6) Asthma Asthma complication type: uncomplicated Asthma persistence: intermittent Asthma severity: mild Qualified Code(s): J45.20 - Mild intermittent asthma, uncomplicated
[2019-06-29] MEDS ORDERED: POTASSIUM CHLORIDE 10 MEQ TABCR PO ONE (20:45)
[2019-06-29] MEDS: INSULIN GLARGINE SOLOSTAR 100 UNITS/ML 3 ML PEN SQ SCH (21:43)
[2019-06-29] MEDS: METOPROLOL TARTRATE 25 MG TAB PO SCH (21:45)
[2019-06-30] MEDS: SUCRALFATE 1 GM TAB PO SCH ×2 (06:02→11:15)
[2019-06-30] MEDS: LEVOTHYROXINE SODIUM 200 MCG TABLET PO SCH (06:02)
[2019-06-30] MEDS: CHOLECALCIFEROL (VITAMIN D) 400 UNITS TABLET PO SCH (07:37)
[2019-06-30] MEDS: CYANOCOBALAMIN 500 MCG TABLET (VITAMIN B-12) PO SCH (07:37)
[2019-06-30] MEDS: LOSARTAN POTASSIUM 50 MG TAB PO SCH (07:38)
[2019-06-30] MEDS: PANTOprazole 40 MG TAB PO SCH (07:39)
[2019-06-30] MEDS: QUETIAPINE FUMARATE 25 MG TABLET PO SCH ×2 (07:39→13:32)
[2019-06-30] MEDS: BENZTROPINE MESYLATE 0.5 MG TAB PO SCH (07:39)
[2019-06-30] MEDS: BusPIRone 15 MG TAB PO SCH (07:39)
[2019-06-30] MEDS: METOPROLOL TARTRATE 25 MG TAB PO SCH (07:40)
[2019-06-30] MEDS: FLUTICASONE/SALMETEROL 250/50 (ADVAIR) 14 PUFF/1 INHALER INH SCH (07:40)
[2019-06-30] MEDS: POLYETHYLENE (MIRALAX) 17 GM PACK PO SCH (07:42)
[2019-06-30 07:46] LABS: BUN Creatinine Ratio 10.1 (10-20); Blood Urea Nitrogen 10 mg/dl (7-18); Calcium 8.9 mg/dl (8.5-10.1); Carbon Dioxide 28 mmol/L (21-32); Chloride 110 mmol/L (98-107); Est GFR (African American) 69.6; Glucose 145 mg/dl (70-99); Sodium 143 mmol/L (136-145)
[2019-06-30] MEDS: clonazePAM 0.5 MG TAB PO SCH ×2 (07:51→13:32)
[2019-06-30] MEDS: INSULIN ASPART 100 UNITS/ML 3 ML PEN SC SCH ×2 (07:52→12:47)
[2019-06-30] MEDS: PREGABALIN 150 MG CAP PO SCH ×2 (07:52→13:32)
[2019-06-30] MEDS: INSULIN GLARGINE SOLOSTAR 100 UNITS/ML 3 ML PEN SC SCH (07:54)
[2019-06-30] MEDS: FERROUS SULFATE 325 MG TAB PO SCH (09:38)
[2019-06-30] MEDS ORDERED: ENOXAPARIN INJ 40 MG/0.4 ML SYR SQ SCH (10:00)
[2019-06-30] MEDS ORDERED: MICONAZOLE NITRATE POWDER 43 GM EXT PRN (10:22)
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
[2019-06-30] MEDS ORDERED: LURASIDONE HCL 40 MG TAB PO SCH (16:30)
== END 2019-06-30 15:51 | DRG 948 ==
LOC: ED 12:33 → 2W 12:33 → SUATTDRO 16:22 → 2W 17:27

== ENCOUNTER 2019-06-30 15:51 | Inpatient (IN) ==
[2019-06-30] MEDS ORDERED: ALUMINUM/MAGNESIUM SUSP 30 ML UDC PO PRN (16:11)
[2019-06-30] MEDS ORDERED: ACETAMINOPHEN 325 MG TAB PO PRN (16:11)
[2019-06-30] MEDS ORDERED: BISMUTH SUBSALICYLATE PER ML OMNICELL CHARGE PO PRN (16:11)
[2019-06-30] MEDS ORDERED: SODIUM CHLORIDE 0.65% NA SOLN 45 ML (OCEAN) PRN (16:11)
[2019-06-30] MEDS ORDERED: POLYETHYLENE (MIRALAX) 17 GM PACK PO PRN (16:48)
[2019-06-30] MEDS ORDERED: ALBUTEROL HFA 8 GM INHALER INH PRN (16:48)
[2019-06-30] MEDS ORDERED: GLUCOSE 10 TABS/TUBE PO PRN ×2 (17:13→17:45)
[2019-06-30] MEDS ORDERED: GLUCAGON FOR INJ 1 MG VIAL SQ PRN ×2 (17:13→17:45)
[2019-06-30] MEDS ORDERED: Nursing to Pharmacy Communication ONE (17:21)
[2019-06-30] MEDS ORDERED: PHARMACY GLYCEMIC MGMT CONSULT PRN (17:27)
[2019-06-30] MEDS ORDERED: INSULIN ASPART 100 UNITS/ML 3 ML PEN SC SCH (17:30)
[2019-06-30] MEDS ORDERED: DEXTROSE 50% 50 ML SYRINGE IV PRN (17:45)
[2019-06-30] MEDS ORDERED: FERROUS SULFATE 325 MG/7.4 ML UDP PO SCH (17:45)
[2019-06-30] MEDS ORDERED: CARBOHYDRATES FOR HYPOGLYCEMIA PO PRN (17:45)
[2019-06-30] MEDS ORDERED: GLUCOSE 40% GEL 15 GM TUBE PO PRN (17:45)
--- NOTE | 2019-06-30 19:12 | History & Physical ---
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 Clonazepam (Klonopin) 0.25 mg PO 0900,1400 [facility] Stop: 07/31/19 08:59 Clopidogrel Bisulfate (Plavix) 75 mg PO QAM [facility] Stop: 07/31/19 08:59 Cyanocobalamin (Vitamin B-12) 2,000 mcg PO QAM [facility] Stop: 07/31/19 08:59 Dextrose (Dextrose 50%) 25 - 50 ml IV UD PRN; Protocol PRN Reason: Hypoglycemia Protocol Stop: 07/30/19 17:44 Ferrous Sulfate (Feosol) 325 mg PO BIDM [facility] Stop: 07/30/19 17:44 Glucagon (Glucagen) 1 mg SQ UD PRN; Protocol PRN Reason: Hypoglycemia Protocol Stop: 07/30/19 17:44 Glucagon (Glucagen) 1 mg SQ PRN PRN PRN Reason: Hypoglycemia Treatment Stop: 07/30/19 17:12 Glucose (Glucose 40%) 15 - 30 gm PO UD PRN; Protocol PRN Reason: Hypoglycemia Protocol Stop: 07/30/19 17:44 Glucose (Dex4 Glucose) 4 - 8 tabs PO UD PRN; Protocol PRN Reason: Hypoglycemia Protocol Stop: 07/30/19 17:44 Glucose (Dex4 Glucose) 4 - 8 tabs PO QID PRN PRN Reason: Hypoglycemia Treatment Stop: 07/30/19 17:12 Insulin Aspart (Novolog Flexpen) 0 units SC ACHS [facility] Stop: 07/30/19 17:29 Insulin Glargine (Lantus Solostar Pen) 55 units SC HS [facility] Stop: 07/30/19 21:59 Insulin Glargine (Lantus Solostar Pen) 60 units SC HS [facility] Stop: 07/30/19 21:59 Levothyroxine Sodium (Synthroid) 200 mcg PO DAILYBB [facility] Stop: 07/31/19 07:59 Lurasidone HCl (Latuda) 80 mg PO HS [facility] Stop: 07/30/19 21:59 Metformin HCl (Glucophage) 1,000 mg PO BIDM [facility] Stop: 07/30/19 17:44 Metoprolol Tartrate (Lopressor) 12.5 mg PO BID [facility] Stop: 07/30/19 20:59 Miscellaneous (Carbohydrates For Hypoglycemia) 15 - 30 gm PO UD PRN PRN Reason: Hypoglycemia Treatment Stop: 07/30/19 17:44 Miscellaneous Information (Consult Glycemic Management Pharmacy) 1 ea N/A UD PRN PRN Reason: Consult Stop: 07/30/19 17:26 Multivitamins (Multivitamin Tab) 1 tab PO QAM [facility] Stop: 07/31/19 08:59 Non-Formulary Medication (Prazosin) 5 mg PO HS [facility] Stop: 07/30/19 21:59 Pantoprazole Sodium (Protonix) 40 mg PO QAM [facility] Stop: 07/31/19 08:59 Polyethylene Glycol (Miralax Powder Packet) 17 gm PO DAILY PRN PRN Reason: Constipation Stop: 07/30/19 16:47 Pregabalin (Lyrica) 150 mg PO TID [facility] Stop: 07/30/19 20:59 Quetiapine Fumarate (Seroquel) 50 mg PO BID [facility] Stop: 07/30/19 20:59 Quetiapine Fumarate (Seroquel) 300 mg PO HS [facility] Stop: 07/30/19 21:59 Ropinirole HCl (Requip) 1 mg PO HS [facility] Stop: 07/30/19 21:59 Fluticasone/Salmeterol (Advair Diskus 250/50) 1 puffs INH BID [facility] Stop: 07/30/19 20:59 Sodium Chloride ([place] Nasal) 1 - 2 sprays NA PRN PRN PRN Reason: Nasal Dryness/Congestion Stop: 07/30/19 16:10 Sucralfate (Carafate) 1 gm PO TID [facility] Stop: 07/30/19 20:59 Venlafaxine HCl (Effexor Extended Release) 150 mg PO HS [facility] Stop: 07/30/19 21:59 Vitamin D (Vitamin D3) 400 units PO QAM [facility] Stop: 07/31/19 08:59 CPT Code CPT Code Initial Hospital Care: 72037
[2019-06-30] MEDS: FLUTICASONE/SALMETEROL 250/50 (ADVAIR) 14 PUFF/1 INHALER INH SCH (21:35)
[2019-06-30] MEDS: SUCRALFATE 1 GM/10 ML UDC PO SCH (21:35)
[2019-06-30] MEDS: BusPIRone 15 MG TAB PO SCH (21:35)
[2019-06-30] MEDS: METOPROLOL TARTRATE 25 MG TAB PO SCH (21:36)
[2019-06-30] MEDS: QUETIAPINE FUMARATE 100 MG TABLET PO SCH (21:37)
[2019-06-30] MEDS: VENLAFAXINE HCL XR 150 MG CAPXR PO SCH (21:38)
[2019-06-30] MEDS: PREGABALIN 150 MG CAP PO SCH (21:39)
[2019-06-30] MEDS: clonazePAM 0.5 MG TAB PO SCH (21:39)
[2019-06-30] MEDS: LURASIDONE HCL 40 MG TAB PO SCH (21:41)
[2019-06-30] MEDS: ATORVASTATIN 40 MG TAB PO SCH (21:41)
[2019-06-30] MEDS: ROPINIROLE HCL 1 MG TABLET PO SCH (21:41)
[2019-06-30] MEDS: PRAZOSIN HCL 1 MG CAP PO SCH (21:41)
[2019-06-30] MEDS: QUETIAPINE FUMARATE 300 MG TABLET PO SCH (21:42)
[2019-06-30] MEDS: INSULIN ASPART 100 UNITS/ML 3 ML PEN SC SCH (21:44)
[2019-06-30] MEDS ORDERED: INSULIN GLARGINE SOLOSTAR 100 UNITS/ML 3 ML PEN SC SCH ×2 (22:00)
[2019-06-30] MEDS ORDERED: BENZTROPINE MESYLATE 0.5 MG TAB PO SCH (22:00)
[2019-07-01] MEDS ORDERED: DEXILANT 60 MG PO SCH (09:00)
[2019-07-01] MEDS ORDERED: METFORMIN HCL 500 MG TAB PO SCH (09:00)
[2019-07-01] MEDS: LEVOTHYROXINE SODIUM 200 MCG TABLET PO SCH (09:04)
[2019-07-01] MEDS: FLUTICASONE/SALMETEROL 250/50 (ADVAIR) 14 PUFF/1 INHALER INH SCH ×2 (09:04→21:18)
[2019-07-01] MEDS: FERROUS SULFATE 325 MG TAB PO SCH ×2 (09:05→17:46)
[2019-07-01] MEDS: BusPIRone 15 MG TAB PO SCH (09:05)
[2019-07-01] MEDS: SUCRALFATE 1 GM/10 ML UDC PO SCH ×3 (09:05→21:19)
[2019-07-01] MEDS: clonazePAM 0.5 MG TAB PO SCH ×3 (09:05→21:21)
[2019-07-01] MEDS: METOPROLOL TARTRATE 25 MG TAB PO SCH ×2 (09:07→21:19)
[2019-07-01] MEDS: MULTIVITAMIN TAB PO SCH (09:08)
[2019-07-01] MEDS: PANTOprazole 40 MG TAB PO SCH (09:08)
[2019-07-01] MEDS: CLOPIDOGREL BISULFATE 75 MG TAB PO SCH (09:08)
[2019-07-01] MEDS: QUETIAPINE FUMARATE 100 MG TABLET PO SCH ×2 (09:09→21:19)
[2019-07-01] MEDS: CYANOCOBALAMIN 500 MCG TABLET (VITAMIN B-12) PO SCH (09:09)
[2019-07-01] MEDS: CHOLECALCIFEROL (VITAMIN D) 400 UNITS TABLET PO SCH (09:10)
[2019-07-01] MEDS: PREGABALIN 150 MG CAP PO SCH ×2 (09:10→13:40)
[2019-07-01] MEDS: INSULIN ASPART 100 UNITS/ML 3 ML PEN SC SCH ×4 (09:14→21:32)
--- NOTE | 2019-07-01 14:02 | Pharmacy Report ---
Pharmacy Glycemic Short Note 2 - Date of Service July 01, 2019 - Glycemic Short BSG Results (Last 24 hours): 07/01/19 07/01/19 08:36 13:10 POC Glucose 117 H 169 H OUTPATIENT ANTIDIABETIC REGIMEN: * Dulaglutide 1.5 mg SQ weekly (Wednesday) * Lantus 60 units SQ qHS * ASpart 18 units TID with meals * Metformin 1000 mg PO BID * A1c 9.9% (06/28/19) ASSESSMENT: * 59 yr old T2DM female with decent inpatient glycemic control. She received 105 units of insulin yesterday. * Patient is on Lantus 60 units qHS at home. On 06/30 and 07/01 the patient was given an additional 15 units SQ in the AM. I will transition back to once daily dosing in the evening since this is how the patient takes Lantus at home. * Post prandial BSGs are mostly at/near goal. Continue same for now. PLAN FOR INPATIENT GLYCEMIC CONTROL: * Hold outpatient oral diabetes medications * Basal insulin * Lantus 70 units SQ qHS * Bolus insulin * NovoLog per scale ACHS or Q6hrs while NPO * Goal Range: Low 110 mg/dL - High 140 mg/dL * Correction Factor: 12 mg/dL/unit * Nutritional / Prandial insulin per carb ratio of 1 unit per 4 grams CHO consumed
--- NOTE | 2019-07-01 15:07 | Psychiatric Progress Note ---
Date of Service July 01, 2019 Impression / Recommendations Impression Deirdre unfortunately struggles with refractory depression which has been persistently worse since her mother's in 2016. Dependent and avoidant traits complicate her functional level. She relies heavily on her case advocate and she has struggled with small tasks rather chronically at home such as keeping up with dishes or unpacking boxes. She requires assistance with her medication management at home as well. Secondary to declining mood we were attempting cross taper from Effexor to Cymbalta recently as outpatient with abrupt decompensation resulting in medical presentation immediately prior to psychiatric admission here. Effexor has clearly been insufficiently effective and alternative antidepressant treatment will be attempted. Additionally we will endeavor to minimize polypharmacy, particularly DONKEY RIDE OPERATOR suppressing medications. Consider possibility of worsening underlying executive dysfunction possibly associated with cerebrovascular disease. (1) Depression: 06/30 -The patient reports chronic depression dating back approximately 4 years without any substantial relief. -We will provide services to the patient on a locked unit with regular every 15 minute checks, and we will encourage participation in individual, group, activity, and milieu therapies. -The plan is to continue her current psychiatric medications. She will be seeing her outpatient psychiatrist, Dr. Huber, over the weekend and he has told us that he has several thoughts about medication adjustments that he would like to make while the patient is safely confined in the hospital. -I have introduced the idea of ECT to the patient, and she has expressed interest in learning more about it. -The patient reports that she has chronic suicidal thoughts, but does not currently have any suicidal plan or intent. She notes that she did have suicidal intent approximately 30 years ago, but did not act on it and has never made an actual suicide attempt. 07/01 -It appears Effexor XR was started at only 150 mg since transfer to the unit but will defer re-titration in hopes of cross tapering to alternative antidepressant, specifically trintellix for alternative mechanism agent. She does not appear to be demonstrating evidence of noradrenergic withdrawal today however she has been on the Effexor for many years now and we will need to remain vigilant for potential need to slow down taper -Nursing has assisted with verifying coverage for Trintellix with outside pharmacy and it appears to have a $0 co-pay. Unfortunately it is nonformulary here at the hospital and will not be ready until Wednesday and will require transportation from a pharmacy. Initial plan would be to start the new antidepressant at 5 mg daily increasing by 5 mg every few days as we further taper the Effexor. -Auditory hallucinations are exacerbated above her baseline. I would like to re-simplify her antipsychotic regimen by tapering the Latuda and titrating the Seroquel. Presently she is on only 80 mg of Latuda which is 40 mg less than her outpatient dose and will plan to continue unchanged for now. if adjustment to antipsychotic needed for to discharge I would favor titration of seroquel. (2) Diabetes: 06/30 -The patient is insulin-dependent. -We are continuing the diabetic regimen that was started on the medical floor. We have also requested a diabetic consult from the pharmacy. -The patient, despite her report of memory difficulties, seems quite clear about her diabetic medication regimen, and can correctly give the names and d osages of her diabetic medicines. -Fingerstick serum glucose level remeasured before meals and at bedtime. (3) Asthma: 06/30 -Patient describes having a "enlarged heart," and dyspnea on exertion. She also tells me that she has chronic asthma. -We will continue the bronchodilator medications that have been part of the patient's recent medication regimen. (4) Sleep apnea: 06/30 -Patient has obstructive sleep apnea and uses a CPAP machine. For that reason, she will require a medically necessary private room and one-to-one/direct view observation during the night while using her CPAP machine. (5) Hypertension: 06/30 -Patient takes several antihypertensive medications and these will be continued during her hospital stay. -Patient's vital signs, including blood pressure and pulse will be monitored daily. (6) Change in mental status: 06/30 -Although the patient tells us that she is continuing to have certain deficits in her short-term memory, and while she struggled with immediate memory testing today, based upon the data available in the record the patient's mental status and, more particularly, her short and long-term memory appear to have been improving. Today, she is oriented to person, place, year, month, and situation. She struggles to recall the name of the vice president of operations, but is successful in this regard eventually, where she had not been able to do this earlier in the hospital stay. She was not able to correctly guess the date within a tolerance of several days and, instead, said that she believed that we were in the "middle" of June, rather than at the end of the month. 07/01 -Appreciate neurology input. Consider possibility of underlying progressive cerebrovascular disease related neurocognitive disorder however that has not been readily apparent in the outpatient setting -No clear etiology identified for acutely altered mental status which occurred in setting of antidepressant cross-taper -We will attempt to reduce Lyrica to 100 mg 3 times daily which she has been taking for neuropathy prescribed by neurology for many years - consider gentle cogentin reduction as well (7) Generalized anxiety disorder with panic attacks: 07/01 -Long history of severe anxiety -Interestingly when she appears more depressive or anxiety seems to isabella -Watch anxiety on reduced Lyrica as above -We will attempt to hold BuSpar to reduce risk for serotonin toxicity and minimize polypharmacy -Continue home dose Klonopin unchanged for now -Continue prazosin 5 mg at bedtime unchanged -Continue Seroquel 50 mg twice daily and 300 mg nightly which historically has been helpful for severe anxiety and insomnia. We will likely consider some further titration as we taper the Latuda as above however if she struggles to tolerate the antidepressant changes, we may defer this cross-taper to outpatient setting Present on Admission?: Yes Inventory Assets Strengths: . Motivated to treatment and recovery. Positive relationship with her outpatient providers. Supportive sister. Able to work part-time (within the confines of her disability). Needs: Resolution of depression. Resolution of suicidal thoughts. Resolution of cognitive impairment. Risk Factors Assessment Male: No : Yes Do You Have Access To A Gun?: No Health Problems: Yes Mental Health Diagnoses: Yes Substance Use Disorders: No Previous Attempt: No Previous Psychiatric Hospitalization: Yes Hopelessness: No Smoker: No Protective Factors Assessment Sabianist Beliefs: No : No Responsible for Young Children: No Employed: Yes Stable Relationships: Yes (Patient reports that she has 2 friends, but does not see them.) Supportive Family: Yes (Her sister.) Good Rapport with Provider: Yes Absence of Any Risk Factors Above: No Interval History Chief Complaint "I am not much better". Review of Systems Sleep Information Total Hours of Sleep: 7.25 Meal Information Percent Meal Consumed - Breakfast: 100 Percent Meal Consumed - Lunch: 100 Percent Meal Consumed - Dinner: 100 Subjective Subjective Patient was seen & assessed and interval progress reviewed with treatment team. This patient is well-known to me from my outpatient psychiatric practice. She was sent to the ER from my office last week secondary to acutely altered mental status. It appears medical workup essentially benign. Neurology consultation reviewed and appreciated. Appears to be now must consider possible underlying progressive neurocognitive disorder however the degree of her cognitive slowing, confusion, and dysarthric articulation which manifested abruptly would not be consistent with such an insidious process. Unclear if she was perhaps delirious associated with the Effexor to Cymbalta cross-taper however she did not demonstrate obvious symptoms of serotonin syndrome. Also considered possibility of SNRI discontinuation however she looks a little improved today and she is on less Effexor at only 150 mg last evening. On interview she complains of feeling still shaky and confused. She is amnestic to her appointment and hospital presentation a few days ago. She rated her mood as a 3 out of 10 last evening but 5 out of 10 today. Describes thoughts as "slow mo." auditory hallucinations in the form of whispers active. Acknowledges passive wish and suicidal fantasy but denies active suicidal intent and able to convincingly contract for safety here in the hospital. Reviewed EKG from 06/28/2019 at which time QTc interval normal. Physical Exam Psychiatric Orientation: cooperative Apperance: + disheveled Eye Contact: good eye contact Motor Behavior: + psychomotor retardation (w/ occasional rocking) Speech: + abnormal rate/rhythm/volume of speech (monotoned) Affect: + flat affect Mood: + depressed mood and + anxious mood Thought Process: goal directed thought process (slowing); no thought blocking Thought Content: no delusions Suicidal Thoughts: denies suicidal intent; + reports suicidal thoughts Homicidal Thoughts: denies homicidal thoughts Hallucinations: + auditory hallucinations Cognition: language grossly intact; + recent memory not intact Insight: + fair insight Judgement: + limited judgement Vital Signs (Past 24 Hours) Last Vital Signs Temp 36.6 C 07/01/19 06:47 Pulse 85 07/01/19 06:48 Resp 20 07/01/19 06:47 BP 110/76 07/01/19 06:48 Pulse Ox 97 06/30/19 23:39 Results & Data Laboratory Results Laboratory Results - last 24 hr 07/01/19 07/01/19 08:36 13:10 POC Glucose 117 H 169 H Current Inpatient Medications Current Inpatient Medications: Current Inpatient Medications Acetaminophen (Tylenol) 650 mg PO Q4H PRN PRN Reason: Headache or Minor Fever Stop: 07/30/19 16:10 Al Hydrox/Mg Hydrox/Simethicone (Maalox) 30 ml PO Q4H PRN PRN Reason: GI Upset Stop: 07/30/19 16:10 Albuterol (Ventolin Hfa) 1 - 2 puffs INH Q4H PRN PRN Reason: Shortness Of Breath Stop: 07/30/19 16:47 Atorvastatin Calcium (Lipitor) 80 mg PO HS [facility] Stop: 07/30/19 21:59 Last Admin: 06/30/19 21:41 Dose: 80 mg Documented by: Benztropine Mesylate (Cogentin) 1 mg PO HS [facility] Stop: 07/30/19 21:59 Last Admin: 06/30/19 21:39 Dose: 1 mg Documented by: Bismuth Subsalicylate (Kaopectate) 15 ml PO PRN PRN PRN Reason: Loose Stool Stop: 07/30/19 16:10 Clonazepam (Klonopin) 1 mg PO [facility] Stop: 07/30/19 21:59 Last Admin: 06/30/19 21:39 Dose: 1 mg Documented by: Clonazepam (Klonopin) 0.25 mg PO 0900,1400 [facility] Stop: 07/31/19 08:59 Last Admin: 07/01/19 13:40 Dose: 0.25 mg Documented by: Clopidogrel Bisulfate (Plavix) 75 mg PO QAM [facility] Stop: 07/31/19 08:59 Last Admin: 07/01/19 09:08 Dose: 75 mg Documented by: Cyanocobalamin (Vitamin B-12) 2,000 mcg PO QAM [facility] Stop: 07/31/19 08:59 Last Admin: 07/01/19 09:09 Dose: 2,000 mcg Documented by: Ferrous Sulfate (Feosol) 325 mg PO BIDM [facility] Stop: 07/31/19 08:59 Last Admin: 07/01/19 09:05 Dose: 325 mg Documented by: Glucagon (Glucagen) 1 mg SQ UD PRN; Protocol PRN Reason: Hypoglycemia Protocol Stop: 07/30/19 17:44 Glucagon (Glucagen) 1 mg SQ PRN PRN PRN Reason: Hypoglycemia Treatment Stop: 07/30/19 17:12 Glucose (Glucose 40%) 15 - 30 gm PO UD PRN; Protocol PRN Reason: Hypoglycemia Protocol Stop: 07/30/19 17:44 Glucose (Dex4 Glucose) 4 - 8 tabs PO UD PRN; Protocol PRN Reason: Hypoglycemia Protocol Stop: 07/30/19 17:44 Glucose (Dex4 Glucose) 4 - 8 tabs PO QID PRN PRN Reason: Hypoglycemia Treatment Stop: 07/30/19 17:12 Insulin Aspart (Novolog Flexpen) 0 units SC ACHS [facility] Stop: 07/30/19 21:59 Last Admin: 07/01/19 13:21 Dose: 15 units Documented by: Insulin Glargine (Lantus Solostar Pen) 70 units SC HS [facility] Stop: 07/31/19 21:59 Levothyroxine Sodium (Synthroid) 200 mcg PO DAILYBB [facility] Stop: 07/31/19 07:59 Last Admin: 07/01/19 09:04 Dose: 200 mcg Documented by: Lurasidone HCl (Latuda) 80 mg PO QDD [facility] Stop: 07/30/19 21:59 Last Admin: 06/30/19 21:41 Dose: 80 mg Documented by: Metoprolol Tartrate (Lopressor) 12.5 mg PO BID [facility] Stop: 07/30/19 20:59 Last Admin: 07/01/19 09:07 Dose: 12.5 mg Documented by: Miscellaneous (Carbohydrates For Hypoglycemia) 15 - 30 gm PO UD PRN PRN Reason: Hypoglycemia Treatment Stop: 07/30/19 17:44 Miscellaneous Information (Consult Glycemic Management Pharmacy) 1 ea N/A UD PRN PRN Reason: Consult Stop: 07/30/19 17:26 Multivitamins (Multivitamin Tab) 1 tab PO QAM [facility] Stop: 07/31/19 08:59 Last Admin: 07/01/19 09:08 Dose: 1 tab Documented by: Pantoprazole Sodium (Protonix) 40 mg PO QAM [facility] Stop: 07/31/19 08:59 Last Admin: 07/01/19 09:08 Dose: 40 mg Documented by: Polyethylene Glycol (Miralax Powder Packet) 17 gm PO DAILY PRN PRN Reason: Constipation Stop: 07/30/19 16:47 Prazosin HCl (Prazosin Hcl) 5 mg PO HS [facility] Stop: 07/30/19 21:59 Last Admin: 06/30/19 21:41 Dose: 5 mg Documented by: Pregabalin (Lyrica) 100 mg PO TID [facility] Stop: 07/31/19 20:59 Quetiapine Fumarate (Seroquel) 50 mg PO BID [facility] Stop: 07/30/19 20:59 Last Admin: 07/01/19 09:09 Dose: 50 mg Documented by: Quetiapine Fumarate (Seroquel) 300 mg PO [facility] Stop: 07/30/19 21:59 Last Admin: 06/30/19 21:42 Dose: 300 mg Documented by: Ropinirole HCl (Requip) 1 mg PO HS [facility] Stop: 07/30/19 21:59 Last Admin: 06/30/19 21:41 Dose: 1 mg Documented by: Fluticasone/Salmeterol (Advair Diskus 250/50) 1 puffs INH BID [facility] Stop: 07/30/19 20:59 Last Admin: 07/01/19 09:04 Dose: 1 puffs Documented by: Sodium Chloride ([place] Nasal) 1 - 2 sprays NA PRN PRN PRN Reason: Nasal Dryness/Congestion Stop: 07/30/19 16:10 Sucralfate (Carafate) 1 gm PO TID [facility] Stop: 07/30/19 20:59 Last Admin: 07/01/19 13:40 Dose: 1 gm Documented by: Venlafaxine HCl (Effexor Extended Release) 150 mg PO HS [facility] Stop: 07/30/19 21:59 Last Admin: 06/30/19 21:38 Dose: 150 mg Documented by: Vitamin D (Vitamin D3) 400 units PO QAM [facility] Stop: 07/31/19 08:59 Last Admin: 07/01/19 09:10 Dose: 400 units Documented by: Mental Health & Subst Abuse Tx Therapist Name of Therapist: [employer] Darci Dowd Mixed Crop Farmer Name of Mixed Crop Farmer: Harshil Avila Post Discharge Appointments Primary Care Physician Name Of Family Doctor: CIARA Karimi CPT Code CPT Code 52663 (1) Sleep apnea Sleep apnea type: obstructive Qualified Code(s): G47.33 - Obstructive sleep apnea (adult) (pediatric) (2) Diabetes Diabetes mellitus complication status: without complication Diabetes mellitus senior living insulin use: with skin care instructor use Diabetes mellitus type: type 2 Qualified Code(s): E11.9 - Type 2 diabetes mellitus without complications; Z79.4 - sow manager (current) use of insulin (3) Depression Active/Remission status: remission status unspecified Depression Type: major depressive disorder Major depression recurrence: unspecified whether recurrent Qualified Code(s): F32.9 - Major depressive disorder, single episode, unspecified (4) Hypertension Hypertension type: unspecified Qualified Code(s): I10 - Essential (primary) hypertension (5) Asthma Asthma complication type: uncomplicated Asthma persistence: intermittent Asthma severity: mild Qualified Code(s): J45.20 - Mild intermittent asthma, uncomplicated
[2019-07-01] MEDS: LURASIDONE HCL 40 MG TAB PO SCH (17:46)
[2019-07-01] MEDS: PREGABALIN 100 MG CAP PO SCH (21:19)
[2019-07-01] MEDS: VENLAFAXINE HCL XR 150 MG CAPXR PO SCH (21:20)
[2019-07-01] MEDS: BENZTROPINE MESYLATE 1 MG TAB PO SCH (21:20)
[2019-07-01] MEDS: PRAZOSIN HCL 1 MG CAP PO SCH (21:21)
[2019-07-01] MEDS: ATORVASTATIN 40 MG TAB PO SCH (21:21)
[2019-07-01] MEDS: ROPINIROLE HCL 1 MG TABLET PO SCH (21:22)
[2019-07-01] MEDS: QUETIAPINE FUMARATE 300 MG TABLET PO SCH (21:23)
[2019-07-01] MEDS ORDERED: INSULIN GLARGINE SOLOSTAR 100 UNITS/ML 3 ML PEN SC SCH (22:00)
[2019-07-02] MEDS: LEVOTHYROXINE SODIUM 200 MCG TABLET PO SCH (09:19)
[2019-07-02] MEDS: clonazePAM 0.5 MG TAB PO SCH ×3 (09:19→21:31)
[2019-07-02] MEDS: SUCRALFATE 1 GM/10 ML UDC PO SCH ×3 (09:19→21:31)
[2019-07-02] MEDS: FLUTICASONE/SALMETEROL 250/50 (ADVAIR) 14 PUFF/1 INHALER INH SCH ×2 (09:19→21:30)
[2019-07-02] MEDS: FERROUS SULFATE 325 MG TAB PO SCH ×2 (09:19→17:33)
[2019-07-02] MEDS: CLOPIDOGREL BISULFATE 75 MG TAB PO SCH (09:20)
[2019-07-02] MEDS: QUETIAPINE FUMARATE 100 MG TABLET PO SCH ×2 (09:20→21:33)
[2019-07-02] MEDS: METOPROLOL TARTRATE 25 MG TAB PO SCH ×2 (09:20→21:34)
[2019-07-02] MEDS: PREGABALIN 100 MG CAP PO SCH ×3 (09:20→21:31)
[2019-07-02] MEDS: PANTOprazole 40 MG TAB PO SCH (09:20)
[2019-07-02] MEDS: MULTIVITAMIN TAB PO SCH (09:20)
[2019-07-02] MEDS: CYANOCOBALAMIN 500 MCG TABLET (VITAMIN B-12) PO SCH (09:22)
[2019-07-02] MEDS: CHOLECALCIFEROL (VITAMIN D) 400 UNITS TABLET PO SCH (09:22)
[2019-07-02] MEDS: INSULIN ASPART 100 UNITS/ML 3 ML PEN SC SCH ×4 (09:23→21:35)
--- NOTE | 2019-07-02 13:37 | Pharmacy Report ---
Pharmacy Glycemic Short Note 2 - Date of Service July 02, 2019 - Glycemic Short BSG Results (Last 24 hours): 07/01/19 07/01/19 07/02/19 17:16 20:52 09:09 POC Glucose 130 H 234 H 142 H 07/02/19 12:40 POC Glucose 180 H OUTPATIENT ANTIDIABETIC REGIMEN: * Dulaglutide 1.5 mg SQ weekly (Wednesday) * Lantus 60 units SQ qHS * Aspart 18 units TID with meals * Metformin 1000 mg PO BID * A1c 9.9% (06/28/19) ASSESSMENT: 07/02: * Calista received 134 units of insulin yesterday with BSGs ranging from 117 - 234 mg/dL * 70 units of basal insulin * 64 units of bolus insulin * Fasting BSG of 142 mg/dL is above goal. Will increase Lantus back to a total of 75 units per day. * Post prandial BSGs are above goal. Carb coverage will be tightened. 07/01: * 59 yr old T2DM female with decent inpatient glycemic control. She received 105 units of insulin yesterday. * Patient is on Lantus 60 units qHS at home. On 06/30 and 07/01 the patient was given an additional 15 units SQ in the AM. I will transition back to once daily dosing in the evening since this is how the patient takes Lantus at home. * Post prandial BSGs are mostly at/near goal. Continue same for now. PLAN FOR INPATIENT GLYCEMIC CONTROL: * Hold outpatient oral diabetes medications * Basal insulin - increase * Lantus 75 units SQ qHS * Bolus insulin - tighten carb coverage * NovoLog per scale ACHS or Q6hrs while NPO * Goal Range: Low 110 mg/dL - High 140 mg/dL * Correction Factor: 12 mg/dL/unit * Nutritional / Prandial insulin per carb ratio of 1 unit per 3 grams CHO consumed PLAN FOR DISCHARGE: A1c = 9.9 % on 06/28/19 Goal A1c = < 8 % based on age and comorbidities If fasting BSG is > 130 mg/dL at home, I recommend increasing Lantus to 75 units SQ once daily in the evening If meal time BSG is elevated at home, I recommend increasing Aspart to 22 units TID with meals and continuing to titrate per discretion of outpatient provider.
--- NOTE | 2019-07-02 15:55 | Psychiatric Progress Note ---
Date of Service July 02, 2019 Impression / Recommendations Impression Deirdre unfortunately struggles with refractory depression which has been persistently worse since her mother's in 2016. Dependent and avoidant traits complicate her functional level. She relies heavily on her corrections caseworker and she has struggled with small tasks rather chronically at home such as keeping up with dishes or unpacking boxes. She requires assistance with her medication management at home as well. Secondary to declining mood we were attempting cross taper from Effexor to Cymbalta recently as outpatient with abrupt decompensation resulting in medical presentation immediately prior to psychiatric admission here. Effexor has clearly been insufficiently effective and alternative antidepressant treatment will be attempted. Additionally we will endeavor to minimize polypharmacy, particularly CIGAR HEAD STRINGER suppressing medications. Consider possibility of worsening underlying executive dysfunction possibly associated with cerebrovascular disease. (1) Depression: 06/30 -The patient reports chronic depression dating back approximately 4 years without any substantial relief. -We will provide services to the patient on a locked unit with regular every 15 minute checks, and we will encourage participation in individual, group, activity, and milieu therapies. -The plan is to continue her current psychiatric medications. She will be seeing her outpatient psychiatrist, Dr. Huber, over the weekend and he has told us that he has several thoughts about medication adjustments that he would like to make while the patient is safely confined in the hospital. -I have introduced the idea of ECT to the patient, and she has expressed interest in learning more about it. -The patient reports that she has chronic suicidal thoughts, but does not currently have any suicidal plan or intent. She notes that she did have suicidal intent approximately 30 years ago, but did not act on it and has never made an actual suicide attempt. 07/01 -It appears Effexor XR was started at only 150 mg since transfer to the unit but will defer re-titration in hopes of cross tapering to alternative antidepressant, specifically trintellix for alternative mechanism agent. She does not appear to be demonstrating evidence of noradrenergic withdrawal today however she has been on the Effexor for many years now and we will need to remain vigilant for potential need to slow down taper -Nursing has assisted with verifying coverage for Trintellix with outside pharmacy and it appears to have a $0 co-pay. Unfortunately it is nonformulary here at the hospital and will not be ready until Wednesday and will require transportation from a pharmacy. Initial plan would be to start the new antidepressant at 5 mg daily increasing by 5 mg every few days as we further taper the Effexor. -Auditory hallucinations are exacerbated above her baseline. I would like to re-simplify her antipsychotic regimen by tapering the Latuda and titrating the Seroquel. Presently she is on only 80 mg of Latuda which is 40 mg less than her outpatient dose and will plan to continue unchanged for now. if adjustment to antipsychotic needed for to discharge I would favor titration of seroquel. 07/02 -Affect is a little brighter today. She continues to do reasonably well on reduced Effexor so hopefully we will be able to continue to taper without too much trouble once Trintellix is available from the outside pharmacy for titration. We hope to have her sister or her corrections caseworker retrieve the prescription tomorrow. Order has been placed to start trintellix 5 mg by mouth every morning on 07/03/2019. I would suggest that be quickly titrated over the next few days while Effexor is weaned. - As above patient continues to experience passive suicidal ideation without active intent however I do perceive that she remains at an elevated risk above her chronic baseline risk and mood had clearly been downtrending prior to her acutely altered mental status reciprocating this admission. I strongly feel that continued psychiatric hospitalization is necessary at this time and patient was agreeable to rescind her 72 hour notice after discussion today. (2) Diabetes: 06/30 -The patient is insulin-dependent. -We are continuing the diabetic regimen that was started on the medical floor. We have also requested a diabetic consult from the pharmacy. -The patient, despite her report of memory difficulties, seems quite clear about her diabetic medication regimen, and can correctly give the names and dosages of her diabetic medicines. -Fingerstick serum glucose level remeasured before meals and at bedtime. (3) Asthma: 06/30 -Patient describes having a "enlarged heart," and dyspnea on exertion. She also tells me that she has chronic asthma. -We will continue the bronchodilator medications that have been part of the patient's recent medication regimen. (4) Sleep apnea: 06/30 -Patient has obstructive sleep apnea and uses a CPAP machine. For that reason, she will require a medically necessary private room and one-to-one/direct view observation during the night while using her CPAP machine. (5) Hypertension: 06/30 -Patient takes several antihypertensive medications and these will be continued during her hospital stay. -Patient's vital signs, including blood pressure and pulse will be monitored daily. (6) Change in mental status: 06/30 -Although the patient tells us that she is continuing to have certain deficits in her short-term memory, and while she struggled with immediate memory testing today, based upon the data available in the record the patient's mental status and, more particularly, her short and long-term memory appear to have been improving. Today, she is oriented to person, place, year, month, and situation. She struggles to recall the name of the vice president global digital marketing, but is successful in this regard eventually, where she had not been able to do this earlier in the hospital stay. She was not able to correctly guess the date within a tolerance of several days and, instead, said that she believed that we were in the "middle" of June, rather than at the end of the month. 07/01 -Appreciate neurology input. Consider possibility of underlying progressive cerebrovascular disease related neurocognitive disorder however that has not been readily apparent in the outpatient setting -No clear etiology identified for acutely altered mental status which occurred in setting of antidepressant cross-taper -We will attempt to reduce Lyrica to 100 mg 3 times daily which she has been taking for neuropathy prescribed by neurology for many years - consider gentle cogentin reduction as well (historically reductions have not been well tolerated) 07/02 -less cognitive slowing evident today (7) Generalized anxiety disorder with panic attacks: 07/01 -Long history of severe anxiety -Interestingly when she appears more depressive or anxiety seems to isabella -Watch anxiety on reduced Lyrica as above -We will attempt to hold BuSpar to reduce risk for serotonin toxicity and minimize polypharmacy -Continue home dose Klonopin unchanged for now -Continue prazosin 5 mg at bedtime unchanged -Continue Seroquel 50 mg twice daily and 300 mg nightly which historically has been helpful for severe anxiety and insomnia. We will likely consider some further titration as we taper the Latuda as above however if she struggles to tolerate the antidepressant changes, we may defer this cross-taper to outpatient setting 07/02 -Anxiety appears mildly exacerbated in the last 24 hours, possibly associated with the changes yesterday. Attempting to find balance in effort to minimize CIGAR HEAD STRINGER suppression and risk for drug drug interactions while maintaining adequate anxiolysis Inventory Assets Strengths: . Motivated to treatment and recovery. Positive relationship with her outpatient providers. Supportive sister. Able to work part-time (within the confines of her disability). Needs: Resolution of depression. Resolution of suicidal thoughts. Resolution of cognitive impairment. Risk Factors Assessment Male: No : Yes Do You Have Access To A Gun?: No Health Problems: Yes Mental Health Diagnoses: Yes Substance Use Disorders: No Previous Attempt: No Previous Psychiatric Hospitalization: Yes Hopelessness: No Smoker: No Protective Factors Assessment Mosque Beliefs: No : No Responsible for Young Children: No Employed: Yes Stable Relationships: Yes (Patient reports that she has 2 friends, but does not see them.) Supportive Family: Yes (Her sister.) Good Rapport with Provider: Yes Absence of Any Risk Factors Above: No Interval History Chief Complaint "I think I feel a little better today". Review of Systems Notes denies paresthesias Sleep Information Total Hours of Sleep: 9 Sleep Comments: pt appeared to sleep 2 hrs during evening shift. pt on 1:1 during the night. pt on c-pap. pt on q-15 minute checks Meal Information Percent Meal Consumed - Breakfast: 100 Percent Meal Consumed - Lunch: 700 Percent Meal Consumed - Dinner: 100 Subjective Subjective Patient was seen & assessed and interval progress reviewed with treatment team. staff report patient slept excessively during the day yesterday. Minimal participation in groups. Verbal responses often delayed. has been compliant with medications.yesterday I discontinued her BuSpar, reduced Lyrica, maintained the reduced doses of Effexor and latuda, and we are awaiting delivery of trintellix tomorrow from outside pharmacy. Deirdre describes feeling a little clearer today and in fact her thought process appears more fluid and efficient. Responses are more in line with her typical baseline and much less latent. Her affect is also brighter and she smiles briefly. She is missing her cat very much. "It's the first time I've ever been away from him like this." Unfortunately this has prompted her to sign her 72 hour notice. After discussion reviewing the seriousness of her initial presentation, the complexity of her case, and the potential risks associated with not getting her medication regimen right before discharge, she was willing to rescind the 72 hour notice. She does continue to endorse episodic passive suicidal ideation but denies active suicidal thinking or intent today. Auditory hallucinations persist, whispers are negative assessments about her telling her that she is not worth it, no one cares about her, and also telling her to just go home. She denies visual hallucinations or in the hospital. She denies physical symptoms of snri withdrawal. Anxiety is a little increased today. Physical Exam Psychiatric Orientation: alert and cooperative Apperance: + disheveled Eye Contact: + fair eye contact Motor Behavior: + psychomotor agitation improved tone today Affect: + depressed affect, + anxious affect and + blunted affect Mood: + depressed mood and + anxious mood Thought Process: goal directed thought process (with less evidence of slowing today) Thought Content: + preoccupation, + cognitive distortions, + worthlessness and + self deprecation Suicidal Thoughts: denies suicidal intent; + reports suicidal thoughts Homicidal Thoughts: denies homicidal thoughts Hallucinations: + auditory hallucinations; no visual hallucinations and no tactile hallucinations Cognition: + recent memory not intact attention is improved today Insight: + fair insight Judgement: + limited judgement Vital Signs (Past 24 Hours) Last Vital Signs Temp 36.3 C L 07/02/19 06:51 Pulse 101 H 07/02/19 09:00 Resp 20 07/02/19 06:51 BP 129/82 07/02/19 09:00 Pulse Ox 98 07/01/19 23:23 Results & Data Laboratory Results Laboratory Results - last 24 hr 07/01/19 07/01/19 07/02/19 17:16 20:52 09:09 POC Glucose 130 H 234 H 142 H 07/02/19 12:40 POC Glucose 180 H Current Inpatient Medications Current Inpatient Medications: Current Inpatient Medications Acetaminophen (Tylenol) 650 mg PO Q4H PRN PRN Reason: Headache or Minor Fever Stop: 07/30/19 16:10 Al Hydrox/Mg Hydrox/Simethicone (Maalox) 30 ml PO Q4H PRN PRN Reason: GI Upset Stop: 07/30/19 16:10 Albuterol (Ventolin Hfa) 1 - 2 puffs INH Q4H PRN PRN Reason: Shortness Of Breath Stop: 07/30/19 16:47 Atorvastatin Calcium (Lipitor) 80 mg PO HS [facility] Stop: 07/30/19 21:59 Last Admin: 07/01/19 21:21 Dose: 80 mg Documented by: Benztropine Mesylate (Cogentin) 1 mg PO HS [facility] Stop: 07/31/19 21:59 Last Admin: 07/01/19 21:20 Dose: 1 mg Documented by: Bismuth Subsalicylate (Kaopectate) 15 ml PO PRN PRN PRN Reason: Loose Stool Stop: 07/30/19 16:10 Clonazepam (Klonopin) 1 mg PO [facility] Stop: 07/30/19 21:59 Last Admin: 07/01/19 21:21 Dose: 1 mg Documented by: Clonazepam (Klonopin) 0.25 mg PO 0900,1400 [facility] Stop: 07/31/19 08:59 Last Admin: 07/02/19 14:21 Dose: 0.25 mg Documented by: Clopidogrel Bisulfate (Plavix) 75 mg PO QAM [facility] Stop: 07/31/19 08:59 Last Admin: 07/02/19 09:20 Dose: 75 mg Documented by: Cyanocobalamin (Vitamin B-12) [facility]cg [facility] Stop: 07/31/19 08:59 Last Admin: 07/02/19 09:22 Dose: 2,000 mcg Documented by: Ferrous Sulfate (Feosol) 325 mg PO BIDM [facility] Stop: 07/31/19 08:59 Last Admin: 07/02/19 09:19 Dose: 325 mg Documented by: Glucagon (Glucagen) 1 mg SQ UD PRN; Protocol PRN Reason: Hypoglycemia Protocol Stop: 07/30/19 17:44 Glucagon (Glucagen) 1 mg SQ PRN PRN PRN Reason: Hypoglycemia Treatment Stop: 07/30/19 17:12 Glucose (Glucose 40%) 15 - 30 gm PO UD PRN; Protocol PRN Reason: Hypoglycemia Protocol Stop: 07/30/19 17:44 Glucose (Dex4 Glucose) 4 - 8 tabs PO UD PRN; Protocol PRN Reason: Hypoglycemia Protocol Stop: 07/30/19 17:44 Glucose (Dex4 Glucose) 4 - 8 tabs PO QID PRN PRN Reason: Hypoglycemia Treatment Stop: 07/30/19 17:12 Insulin Aspart (Novolog Flexpen) 0 units SC [facility] Stop: 07/30/19 21:59 Last Admin: 07/02/19 13:02 Dose: 13 units Documented by: Insulin Glargine (Lantus Solostar Pen) 75 units SC [facility] Stop: 08/01/19 21:59 Levothyroxine Sodium (Synthroid) 200 mcg PO DAILYBB [facility] Stop: 07/31/19 07:59 Last Admin: 07/02/19 09:19 Dose: 200 mcg Documented by: Lurasidone HCl (Latuda) 80 mg PO QDD [facility] Stop: 07/30/19 21:59 Last Admin: 07/01/19 17:46 Dose: 80 mg Documented by: Metoprolol Tartrate (Lopressor) 12.5 mg PO BID [facility] Stop: 07/30/19 20:59 Last Admin: 07/02/19 09:20 Dose: 12.5 mg Documented by: Miscellaneous (Carbohydrates For Hypoglycemia) 15 - 30 gm PO UD PRN PRN Reason: Hypoglycemia Treatment Stop: 07/30/19 17:44 Miscellaneous (Order Awaiting Action) 1 ea N/A QS [facility] Stop: 08/01/19 15:59 Miscellaneous Information (Consult Glycemic Management Pharmacy) 1 ea N/A UD PRN PRN Reason: Consult Stop: 07/30/19 17:26 Multivitamins (Multivitamin Tab) 1 tab PO QAM [facility] Stop: 07/31/19 08:59 Last Admin: 07/02/19 09:20 Dose: 1 tab Documented by: Pantoprazole Sodium (Protonix) 40 mg PO QAM [facility] Stop: 07/31/19 08:59 Last Admin: 07/02/19 09:20 Dose: 40 mg Documented by: Polyethylene Glycol (Miralax Powder Packet) 17 gm PO DAILY PRN PRN Reason: Constipation Stop: 07/30/19 16:47 Prazosin HCl (Prazosin Hcl) 5 mg PO HS [facility] Stop: 07/30/19 21:59 Last Admin: 07/01/19 21:21 Dose: 5 mg Documented by: Pregabalin (Lyrica) 100 mg PO TID [facility] Stop: 07/31/19 20:59 Last Admin: 07/02/19 14:21 Dose: 100 mg Documented by: Quetiapine Fumarate (Seroquel) 50 mg PO BID [facility] Stop: 07/30/19 20:59 Last Admin: 07/02/19 09:20 Dose: 50 mg Documented by: Quetiapine Fumarate (Seroquel) 300 mg PO HS [facility] Stop: 07/30/19 21:59 Last Admin: 07/01/19 21:23 Dose: 300 mg Documented by: Ropinirole HCl (Requip) 1 mg PO HS [facility] Stop: 07/30/19 21:59 Last Admin: 07/01/19 21:22 Dose: 1 mg Documented by: Fluticasone/Salmeterol (Advair Diskus 250/50) 1 puffs INH BID [facility] Stop: 07/30/19 20:59 Last Admin: 07/02/19 09:19 Dose: 1 puffs Documented by: Sodium Chloride ([place] Nasal) 1 - 2 sprays NA PRN PRN PRN Reason: Nasal Dryness/Congestion Stop: 07/30/19 16:10 Sucralfate (Carafate) 1 gm PO TID [facility] Stop: 07/30/19 20:59 Last Admin: 07/02/19 14:21 Dose: 1 gm Documented by: Venlafaxine HCl (Effexor Extended Release) 150 mg PO HS [facility] Stop: 07/30/19 21:59 Last Admin: 07/01/19 21:20 Dose: 150 mg Documented by: Vitamin D (Vitamin D3) 400 units PO QAM [facility] Stop: 07/31/19 08:59 Last Admin: 07/02/19 09:22 Dose: 400 units Documented by: Mental Health & Subst Abuse Tx Psychiatrist Name of Psychiatrist: Ar[facility] - Dr. Ramos Psychiatrist's Psychiatric Appointment Comment: [address] [place] [address] Therapist Name of Therapist: HamptonShad Dowd Therapist's Therapy Appointment Comment: [address], [place] [address] Cad Librarian Name of Cad Librarian: Harshil Avila Phone Number for Cad Librarian: [phone] Case Management Appointment Comment: [id number], [place] [address] Post Discharge Appointments Primary Care Physician Name Of Family Doctor: [facility] Time of Appointment with PCP: Follow up as needed. 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
[2019-07-02] MEDS: LURASIDONE HCL 40 MG TAB PO SCH (17:33)
[2019-07-02] MEDS: QUETIAPINE FUMARATE 300 MG TABLET PO SCH (21:31)
[2019-07-02] MEDS: ROPINIROLE HCL 1 MG TABLET PO SCH (21:31)
[2019-07-02] MEDS: ATORVASTATIN 40 MG TAB PO SCH (21:32)
[2019-07-02] MEDS: PRAZOSIN HCL 1 MG CAP PO SCH (21:32)
[2019-07-02] MEDS: VENLAFAXINE HCL XR 150 MG CAPXR PO SCH (21:33)
[2019-07-02] MEDS: BENZTROPINE MESYLATE 1 MG TAB PO SCH (21:33)
[2019-07-02] MEDS ORDERED: INSULIN GLARGINE SOLOSTAR 100 UNITS/ML 3 ML PEN SC SCH (22:00)
[2019-07-03] MEDS: LEVOTHYROXINE SODIUM 200 MCG TABLET PO SCH (07:52)
[2019-07-03] MEDS: FLUTICASONE/SALMETEROL 250/50 (ADVAIR) 14 PUFF/1 INHALER INH SCH ×2 (08:48→21:19)
[2019-07-03] MEDS: FERROUS SULFATE 325 MG TAB PO SCH ×2 (08:49→18:10)
[2019-07-03] MEDS: SUCRALFATE 1 GM/10 ML UDC PO SCH ×3 (08:49→21:20)
[2019-07-03] MEDS: METOPROLOL TARTRATE 25 MG TAB PO SCH ×2 (08:49→21:20)
[2019-07-03] MEDS: CLOPIDOGREL BISULFATE 75 MG TAB PO SCH (08:50)
[2019-07-03] MEDS: QUETIAPINE FUMARATE 100 MG TABLET PO SCH ×2 (08:50→21:22)
[2019-07-03] MEDS: MULTIVITAMIN TAB PO SCH (08:50)
[2019-07-03] MEDS: PANTOprazole 40 MG TAB PO SCH (08:50)
[2019-07-03] MEDS: CYANOCOBALAMIN 500 MCG TABLET (VITAMIN B-12) PO SCH (08:51)
[2019-07-03] MEDS: CHOLECALCIFEROL (VITAMIN D) 400 UNITS TABLET PO SCH (08:51)
[2019-07-03] MEDS: clonazePAM 0.5 MG TAB PO SCH ×3 (08:54→21:23)
[2019-07-03] MEDS: PREGABALIN 100 MG CAP PO SCH ×3 (08:55→21:21)
[2019-07-03] MEDS: INSULIN ASPART 100 UNITS/ML 3 ML PEN SC SCH ×4 (09:15→21:10)
--- NOTE | 2019-07-03 14:04 | Pharmacy Report ---
Pharmacy Glycemic Short Note 2 - Date of Service July 03, 2019 - Glycemic Short BSG Results (Last 24 hours): 07/02/19 07/02/19 07/03/19 17:18 20:49 07:50 POC Glucose 153 H 144 H 104 H 07/03/19 12:27 POC Glucose 98 OUTPATIENT ANTIDIABETIC REGIMEN: * Dulaglutide 1.5 mg SQ weekly (Wednesday) * Lantus 60 units SQ qHS * Aspart 18 units TID with meals * Metformin 1000 mg PO BID * A1c 9.9% (06/28/19) ASSESSMENT: 07/03: * Patient received 141 units of insulin yesterday (75 units of which were basal) * BSGs ranging 98-180 over past 24 hours * Fasting BSG this morning of 104 mg/dL, which is at goal (down from 142 mg/dL yesterday AM) * Basal needs may be in between 70 and 75 units daily 07/01: * 59 yr old T2DM female with decent inpatient glycemic control. She received 105 units of insulin yesterday. * Patient is on Lantus 60 units qHS at home. On 06/30 and 07/01 the patient was given an additional 15 units SQ in the AM. I will transition back to once daily dosing in the evening since this is how the patient takes Lantus at home. * Post prandial BSGs are mostly at/near goal. Continue same for now. PLAN FOR INPATIENT GLYCEMIC CONTROL: * Hold outpatient oral diabetes medications * Basal insulin - decrease slightly * Lantus 72 units SQ qHS * Bolus insulin - loosen carb coverage and tighten correction factor * NovoLog per scale ACHS or Q6hrs while NPO * Goal Range: Low 110 mg/dL - High 140 mg/dL * Correction Factor: 10 mg/dL/unit * Nutritional / Prandial insulin per carb ratio of 1 unit per 4 grams CHO consumed PLAN FOR DISCHARGE: A1c = 9.9 % on 06/28/19 Goal A1c = < 8 % based on age and comorbidities If fasting BSG is > 130 mg/dL at home, I recommend increasing Lantus to 75 units SQ once daily in the evening If meal time BSG is elevated at home, I recommend increasing Aspart to 22 units TID with meals and continuing to titrate per discretion of outpatient provider.
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
[2019-07-03] MEDS: LURASIDONE HCL 40 MG TAB PO SCH (18:10)
[2019-07-03] MEDS: INSULIN GLARGINE SOLOSTAR 100 UNITS/ML 3 ML PEN SC SCH (21:07)
[2019-07-03] MEDS: BENZTROPINE MESYLATE 1 MG TAB PO SCH (21:21)
[2019-07-03] MEDS: VENLAFAXINE HCL XR 150 MG CAPXR PO SCH (21:23)
[2019-07-03] MEDS: ATORVASTATIN 40 MG TAB PO SCH (21:23)
[2019-07-03] MEDS: ROPINIROLE HCL 1 MG TABLET PO SCH (21:24)
[2019-07-03] MEDS: QUETIAPINE FUMARATE 300 MG TABLET PO SCH (21:24)
[2019-07-03] MEDS: PRAZOSIN HCL 1 MG CAP PO SCH (21:24)
[2019-07-03] MEDS: VORTIOXETINE HYDROBROMIDE PO SCH (21:37)
[2019-07-04] MEDS: CHOLECALCIFEROL (VITAMIN D) 400 UNITS TABLET PO SCH (08:46)
[2019-07-04] MEDS: CLOPIDOGREL BISULFATE 75 MG TAB PO SCH (08:46)
[2019-07-04] MEDS: CYANOCOBALAMIN 500 MCG TABLET (VITAMIN B-12) PO SCH (08:46)
[2019-07-04] MEDS: QUETIAPINE FUMARATE 100 MG TABLET PO SCH ×2 (08:46→22:03)
[2019-07-04] MEDS: MULTIVITAMIN TAB PO SCH (08:46)
[2019-07-04] MEDS: PANTOprazole 40 MG TAB PO SCH (08:46)
[2019-07-04] MEDS: FLUTICASONE/SALMETEROL 250/50 (ADVAIR) 14 PUFF/1 INHALER INH SCH ×2 (08:47→22:01)
[2019-07-04] MEDS: VORTIOXETINE HYDROBROMIDE PO SCH (08:47)
[2019-07-04] MEDS: LEVOTHYROXINE SODIUM 200 MCG TABLET PO SCH (08:47)
[2019-07-04] MEDS: FERROUS SULFATE 325 MG TAB PO SCH ×2 (08:47→17:43)
[2019-07-04] MEDS: METOPROLOL TARTRATE 25 MG TAB PO SCH ×2 (08:47→22:02)
[2019-07-04] MEDS: SUCRALFATE 1 GM/10 ML UDC PO SCH ×3 (08:48→22:02)
[2019-07-04] MEDS: PREGABALIN 100 MG CAP PO SCH ×3 (08:50→22:03)
[2019-07-04] MEDS: clonazePAM 0.5 MG TAB PO SCH ×3 (08:50→22:04)
[2019-07-04] MEDS: INSULIN ASPART 100 UNITS/ML 3 ML PEN SC SCH ×4 (08:51→22:09)
--- NOTE | 2019-07-04 13:31 | Psychiatric Progress Note ---
Date of Service July 04, 2019 Impression / Recommendations Impression Deirdre unfortunately struggles with refractory depression which has been persistently worse since her mother's in 2016. Dependent and avoidant traits complicate her functional level. She relies heavily on her case management rn and she has struggled with small tasks rather chronically at home such as keeping up with dishes or unpacking boxes. She requires assistance with her medication management at home as well. Secondary to declining mood we were attempting cross taper from Effexor to Cymbalta recently as outpatient with abrupt decompensation resulting in medical presentation immediately prior to psychiatric admission here. Effexor has clearly been insufficiently effective and alternative antidepressant treatment will be attempted. Additionally we will endeavor to minimize polypharmacy, particularly AUTOMOBILE APPRAISER suppressing medications. Consider possibility of worsening underlying executive dysfunction possibly associated with cerebrovascular disease. (1) Depression: 06/30 -The patient reports chronic depression dating back approximately 4 years without any substantial relief. -We will provide services to the patient on a locked unit with regular every 15 minute checks, and we will encourage participation in individual, group, activity, and milieu therapies. -The plan is to continue her current psychiatric medications. She will be seeing her outpatient psychiatrist, Dr. Nogueira, over the weekend and he has told us that he has several thoughts about medication adjustments that he would like to make while the patient is safely confined in the hospital. -I have introduced the idea of ECT to the patient, and she has expressed interest in learning more about it. -The patient reports that she has chronic suicidal thoughts, but does not currently have any suicidal plan or intent. She notes that she did have suicidal intent approximately 30 years ago, but did not act on it and has never made an actual suicide attempt. 07/01 -It appears Effexor XR was started at only 150 mg since transfer to the unit but will defer re-titration in hopes of cross tapering to alternative antidepressant, specifically trintellix for alternative mechanism agent. She does not appear to be demonstrating evidence of noradrenergic withdrawal today however she has been on the Effexor for many years now and we will need to remain vigilant for potential need to slow down taper -Nursing has assisted with verifying coverage for Trintellix with outside pharmacy and it appears to have a $0 co-pay. Unfortunately it is nonformulary here at the hospital and will not be ready until Wednesday and will require transportation from a pharmacy. Initial plan would be to start the new antidepressant at 5 mg daily increasing by 5 mg every few days as we further taper the Effexor. -Auditory hallucinations are exacerbated above her baseline. I would like to re-simplify her antipsychotic regimen by tapering the Latuda and titrating the Seroquel. Presently she is on only 80 mg of Latuda which is 40 mg less than her outpatient dose and will plan to continue unchanged for now. if adjustment to antipsychotic needed for to discharge I would favor titration of seroquel. 07/02 -Affect is a little brighter today. She continues to do reasonably well on reduced Effexor so hopefully we will be able to continue to taper without too much trouble once Trintellix is available from the outside pharmacy for titration. We hope to have her sister or her case management rn retrieve the prescription tomorrow. Order has been placed to start trintellix 5 mg by mouth every morning on 07/03/2019. I would suggest that be quickly titrated over the next few days while Effexor is weaned. - As above patient continues to experience passive suicidal ideation without active intent however I do perceive that she remains at an elevated risk above her chronic baseline risk and mood had clearly been downtrending prior to her acutely altered mental status reciprocating this admission. I strongly feel that continued psychiatric hospitalization is necessary at this time and patient was agreeable to rescind her 72 hour notice after discussion today. 07/03 - Anticipating Trintellix to be brought in by friend marco a. Will give 5mg one-time dose when available, then increase to 10mg qAM if tolerated - Will reduce Effexor to 75mg tomorrow morning, in anticipation of Trintellix being initiated this evening - Continue remainder of home medications as above, focus on antidepressant medication adjustments - Consider adjustments to antipsychotic medications as well, though this may be deferred until after discharge depending on her tolerance for medication changes - Continue to encourage development of healthy and effective coping strategies - Pt reporting ongoing SI 07/04 - Continue treatment plan as above - Trintellix at 10mg and Effexor at 75mg; continue cross-taper as tolerated - Continue to work with patient on other medication changes as tolerated (2) Diabetes: 06/30 -The patient is insulin-dependent. -We are continuing the diabetic regimen that was started on the medical floor. We have also requested a diabetic consult from the pharmacy. -The patient, despite her report of memory difficulties, seems quite clear about her diabetic medication regimen, and can correctly give the names and dosages of her diabetic medicines. -Fingerstick serum glucose level remeasured before meals and at bedtime. (3) Asthma: 06/30 -Patient describes having a "enlarged heart," and dyspnea on exertion. She also tells me that she has chronic asthma. -We will continue the bronchodilator medications that have been part of the patient's recent medication regimen. (4) Sleep apnea: 06/30 -Patient has obstructive sleep apnea and uses a CPAP machine. For that reason, she will require a medically necessary private room and one-to- one/direct view observation during the night while using her CPAP machine. (5) Hypertension: 06/30 -Patient takes several antihypertensive medications and these will be continued during her hospital stay. -Patient's vital signs, including blood pressure and pulse will be monitored daily. (6) Change in mental status: 06/30 -Although the patient tells us that she is continuing to have certain deficits in her short-term memory, and while she struggled with immediate memory testing today, based upon the data available in the record the patient's mental status and, more particularly, her short and long-term memory appear to have been improving. Today, she is oriented to person, place, year, month, and situa tion. She struggles to recall the name of the president and cmo, but is successful in this regard eventually, where she had not been able to do this earlier in the hospital stay. She was not able to correctly guess the date within a tolerance of several days and, instead, said that she believed that we were in the "middle" of June, rather than at the end of the month. 07/01 -Appreciate neurology input. Consider possibility of underlying progressive cerebrovascular disease related neurocognitive disorder however that has not been readily apparent in the outpatient setting -No clear etiology identified for acutely altered mental status which occurred in setting of antidepressant cross-taper -We will attempt to reduce Lyrica to 100 mg 3 times daily which she has been taking for neuropathy prescribed by neurology for many years - consider gentle cogentin reduction as well (historically reductions have not been well tolerated) 07/02 -less cognitive slowing evident today (7) Generalized anxiety disorder with panic attacks: 07/01 -Long history of severe anxiety -Interestingly when she appears more depressive her anxiety seems to isabella -Watch anxiety on reduced Lyrica as above -We will attempt to hold BuSpar to reduce risk for serotonin toxicity and minimize polypharmacy -Continue home dose Klonopin unchanged for now -Continue prazosin 5 mg at bedtime unchanged -Continue Seroquel 50 mg twice daily and 300 mg nightly which historically has been helpful for severe anxiety and insomnia. We will likely consider some further titration as we taper the Latuda as above however if she struggles to tolerate the antidepressant changes, we may defer this cross-taper to outpatient setting 07/02 -Anxiety appears mildly exacerbated in the last 24 hours, possibly associated with the changes yesterday. Attempting to find balance in effort to minimize AUTOMOBILE APPRAISER suppression and risk for drug drug interactions while maintaining adequate anxiolysis 07/03 - Trintellix to be initiated when brought from retail pharmacy - Continue medication considerations as above Inventory Assets Strengths: . Motivated to treatment and recovery. Positive relationship with her outpatient providers. Supportive sister. Able to work part-time (within the confines of her disability). Needs: Resolution of depression. Resolution of suicidal thoughts. Resolution of cognitive impairment. Risk Factors Assessment Male: No : Yes Do You Have Access To A Gun?: No Health Problems: Yes Mental Health Diagnoses: Yes Substance Use Disorders: No Previous Attempt: No Previous Psychiatric Hospitalization: Yes Hopelessness: No Smoker: No Protective Factors Assessment Pentecostal Beliefs: No : No Responsible for Young Children: No Employed: Yes Stable Relationships: Yes (Patient reports that she has 2 friends, but does not see them.) Supportive Family: Yes (Her sister.) Good Rapport with Provider: Yes Absence of Any Risk Factors Above: No Interval History Chief Complaint "Things have been ok. No too much different." Review of Systems Notes Constitutional: denied Cardiovascular: denied Respiratory: denied Gastrointestinal: denied Neurological: denied Psychiatric: denies symptoms other than stated above Total of at least 10 systems reviewed, pertinent positives as above and in HPI. Sleep Information Total Hours of Sleep: 6 Sleep Comments: pt continue on 1:1 staff coverage. pt on q-15 minute checks Meal Information Percent Meal Consumed - Breakfast: 100 Percent Meal Consumed - Lunch: 100 Percent Meal Consumed - Dinner: 100 Subjective Subjective Patient was seen & assessed and interval progress reviewed with nursing and social work. Staff report the patient has been mostly isolative on the unit. She has reported feeling over stimulated due to various noises on the unit. Pt has been attempting to find someone who may be able to help take care of her cat. Pt was seen today to assess progress since admission. Pt reports that she is "ok" but "not feeling much different." She was asked what the highlight of her day was, and reported "finding someone to take care of Golden (her cat)." Pt states that she has continued to hear "whispers, coming from what I call a glass chelsie." She states that the voices have been telling her "I'm not good enough, that I don't need to be here [on earth]." Pt shares with this provider that she continues to have negative thoughts, as she is concerned about poor self-esteem. Pt was able to participate in an exercise in which she named several character traits that she is proud of - we discussed keeping these positive comments on hand to use to combat other negative thoughts. Pt admits to ongoing through to harm herself, but denies intent to act while on the unit. She is agreeable to continuing to work on medication adjustments and aftercare arrangements that will improve her functioning on discharge. Pt denies other acute concerns today. Physical Exam Psychiatric Orientation: alert, oriented x 3 and cooperative Apperance: appropriately dressed, appropriately groomed and appeared stated age Eye Contact: good eye contact Motor Behavior: no abnormal motor movements (observed while laying in bed) Speech: normal rate/rhythm/volume of speech Affect: + depressed affect, + anxious affect and mood congruent with affect Mood: + depressed mood ("not much different") and + anxious mood Thought Process: goal directed thought process and + concrete thought process Thought Content: + preoccupation (with poor self-esteem and auditory hallucinations), + hopelessness and + worthlessness Suicidal Thoughts: + reports suicidal thoughts and + reports suicidal intent (intent is unclear, but reports ability to contract for safety) Hallucinations: + auditory hallucinations ("glass angels whispering"); no visual hallucinations Cognition: attention grossly intact and language grossly intact Insight: + limited insight Judgement: + fair judgement Vital Signs (Past 24 Hours) Last Vital Signs Temp 36.4 C L 07/04/19 06:52 Pulse 88 07/04/19 06:52 Resp 20 07/04/19 06:52 BP 121/78 07/04/19 06:52 Pulse Ox 96 07/03/19 23:21 Results & Data Laboratory Results Laboratory Results - last 24 hr 07/03/19 07/03/19 07/04/19 17:12 20:37 08:26 POC Glucose 160 H 299 H 145 H 07/04/19 12:36 POC Glucose 119 H Current Inpatient Medications Current Inpatient Medications: Current Inpatient Medications Acetaminophen (Tylenol) 650 mg PO Q4H PRN PRN Reason: Headache or Minor Fever Stop: 07/30/19 16:10 Al Hydrox/Mg Hydrox/Simethicone (Maalox) 30 ml PO Q4H PRN PRN Reason: GI Upset Stop: 07/30/19 16:10 Albuterol (Ventolin Hfa) 1 - 2 puffs INH Q4H PRN PRN Reason: Shortness Of Breath Stop: 07/30/19 16:47 Atorvastatin Calcium (Lipitor) 80 mg PO [facility] Stop: 07/30/19 21:59 Last Admin: 07/03/19 21:23 Dose: 80 mg Documented by: Benztropine Mesylate (Cogentin) 1 mg PO [facility] Stop: 07/31/19 21:59 Last Admin: 07/03/19 21:21 Dose: 1 mg Documented by: Bismuth Subsalicylate (Kaopectate) 15 ml PO PRN PRN PRN Reason: Loose Stool Stop: 07/30/19 16:10 Clonazepam (Klonopin) 1 mg PO [facility] Stop: 07/30/19 21:59 Last Admin: 07/03/19 21:23 Dose: 1 mg Documented by: Clonazepam (Klonopin) 0.25 mg PO 0900,1400 [facility] Stop: 07/31/19 08:59 Last Admin: 07/04/19 08:50 Dose: 0.25 mg Documented by: [facility]opidogrel [facility]) [facility] Stop: 07/31/19 08:59 Last Admin: 07/04/19 08:46 Dose: 75 mg Documented by: Cyanocobalamin (Vitamin B-12) 2,000 mcg PO QAM [facility] Stop: 07/31/19 08:59 Last Admin: 07/04/19 08:46 Dose: 2,000 mcg Documented by: Ferrous Sulfate (Feosol) 325 mg PO BIDM [facility] Stop: 07/31/19 08:59 Last Admin: 07/04/19 08:47 Dose: 325 mg Documented by: Glucagon (Glucagen) 1 mg SQ UD PRN; Protocol PRN Reason: Hypoglycemia Protocol Stop: 07/30/19 17:44 Glucagon (Glucagen) 1 mg SQ PRN PRN PRN Reason: Hypoglycemia Treatment Stop: 07/30/19 17:12 Glucose (Glucose 40%) 15 - 30 gm PO UD PRN; Protocol PRN Reason: Hypoglycemia Protocol Stop: 07/30/19 17:44 Glucose (Dex4 Glucose) 4 - 8 tabs PO UD PRN; Protocol PRN Reason: Hypoglycemia Protocol Stop: 07/30/19 17:44 Glucose (Dex4 Glucose) 4 - 8 tabs PO QID PRN PRN Reason: Hypoglycemia Treatment Stop: 07/30/19 17:12 Insulin Aspart (Novolog Flexpen) 0 units SC ACHS [facility] Stop: 07/30/19 21:59 Last Admin: 07/04/19 12:48 Dose: 19 units Documented by: Insulin Glargine (Lantus Solostar Pen) 72 units SC HS [facility] Stop: 08/02/19 21:59 Last Admin: 07/03/19 21:07 Dose: 72 units Documented by: Levothyroxine Sodium (Synthroid) 200 mcg PO DAILYBB [facility] Stop: 07/31/19 07:59 Last Admin: 07/04/19 08:47 Dose: 200 mcg Documented by: Lurasidone HCl (Latuda) 80 mg PO QDD [facility] Stop: 07/30/19 21:59 Last Admin: 07/03/19 18:10 Dose: 80 mg Documented by: Metoprolol Tartrate (Lopressor) 12.5 mg PO BID [facility] Stop: 07/30/19 20:59 Last Admin: 07/04/19 08:47 Dose: 12.5 mg Documented by: Miscellaneous (Carbohydrates For Hypoglycemia) 15 - 30 gm PO UD PRN PRN Reason: Hypoglycemia Treatment Stop: 07/30/19 17:44 Miscellaneous Information (Consult Glycemic Management Pharmacy) 1 ea N/A UD PRN PRN Reason: Consult Stop: 07/30/19 17:26 Multivitamins (Multivitamin Tab) 1 tab PO QAM [facility] Stop: 07/31/19 08:59 Last Admin: 07/04/19 08:46 Dose: 1 tab Documented by: Pantoprazole Sodium (Protonix) 40 mg PO QAM [facility] Stop: 07/31/19 08:59 Last Admin: 07/04/19 08:46 Dose: 40 mg Documented by: Polyethylene Glycol (Miralax Powder Packet) 17 gm PO DAILY PRN PRN Reason: Constipation Stop: 07/30/19 16:47 Prazosin HCl (Prazosin Hcl) 5 mg PO [facility] Stop: 07/30/19 21:59 Last Admin: 07/03/19 21:24 Dose: 5 mg Documented by: Pregabalin (Lyrica) 100 mg PO TID [facility] Stop: 07/31/19 20:59 Last Admin: 07/04/19 08:50 Dose: 100 mg Documented by: Quetiapine Fumarate (Seroquel) 50 mg PO BID [facility] Stop: 07/30/19 20:59 Last Admin: 07/04/19 08:46 Dose: 50 mg Documented by: Quetiapine Fumarate (Seroquel) 300 mg PO [facility] Stop: 07/30/19 21:59 Last Admin: 07/03/19 21:24 Dose: 300 mg Documented by: Ropinirole HCl (Requip) 1 mg PO [facility] Stop: 07/30/19 21:59 Last Admin: 07/03/19 21:24 Dose: 1 mg Documented by: Fluticasone/Salmeterol (Advair Diskus 250/50) 1 puffs INH BID [facility] Stop: 07/30/19 20:59 Last Admin: 07/04/19 08:47 Dose: 1 puffs Documented by: Sodium Chloride ([place] Nasal) 1 - 2 sprays NA PRN PRN PRN Reason: Nasal Dryness/Congestion Stop: 07/30/19 16:10 Sucralfate (Carafate) 1 gm PO TID [facility] Stop: 07/30/19 20:59 Last Admin: 07/04/19 08:48 Dose: 1 gm Documented by: Venlafaxine HCl (Effexor Extended Release) 75 mg PO [facility] Stop: 08/03/19 21:59 Vitamin D (Vitamin D3) 400 [facility] Stop: 07/31/19 08:59 Last Admin: 07/04/19 08:46 Dose: 400 units Documented by: Vortioxetine (Trintellix) 1 ea PO QAM [facility] Stop: 08/03/19 08:59 Last Admin: 07/04/19 08:47 Dose: 1 ea Documented by: Mental Health & Subst Abuse Tx Psychiatrist Name of Psychiatrist: Arcadio Liu - Dr. Ramos Psychiatrist's Psychiatric Appointment Comment: [address], [place] [address] Therapist Name of Therapist: Arcadio Liu - Cristina Dowd Therapist's Therapy Appointment Comment: [address], [place] [address] Sparmaker Name of Sparmaker: Harshil Avila Phone Number for Sparmaker: [phone] Case Management Appointment Comment: [address], [place] [address] Post Discharge Appointments Primary Care Physician Name Of Family Doctor: [facility] Time of Appointment with PCP: Follow up as needed. 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
[2019-07-04] MEDS: LURASIDONE HCL 40 MG TAB PO SCH (17:42)
[2019-07-04] MEDS: BENZTROPINE MESYLATE 1 MG TAB PO SCH (22:04)
[2019-07-04] MEDS: VENLAFAXINE HCL XR 75 MG CAPXR PO SCH (22:04)
[2019-07-04] MEDS: INSULIN GLARGINE SOLOSTAR 100 UNITS/ML 3 ML PEN SC SCH (22:07)
[2019-07-04] MEDS: ATORVASTATIN 40 MG TAB PO SCH (22:08)
[2019-07-04] MEDS: ROPINIROLE HCL 1 MG TABLET PO SCH (22:10)
[2019-07-04] MEDS: PRAZOSIN HCL 1 MG CAP PO SCH (22:10)
[2019-07-04] MEDS: QUETIAPINE FUMARATE 300 MG TABLET PO SCH (22:11)
[2019-07-05] MEDS: FLUTICASONE/SALMETEROL 250/50 (ADVAIR) 14 PUFF/1 INHALER INH SCH ×2 (08:47→20:59)
[2019-07-05] MEDS: FERROUS SULFATE 325 MG TAB PO SCH ×2 (08:48→17:09)
[2019-07-05] MEDS: clonazePAM 0.5 MG TAB PO SCH ×3 (08:48→21:04)
[2019-07-05] MEDS: SUCRALFATE 1 GM/10 ML UDC PO SCH ×3 (08:48→17:09)
[2019-07-05] MEDS: LEVOTHYROXINE SODIUM 200 MCG TABLET PO SCH (08:48)
[2019-07-05] MEDS: METOPROLOL TARTRATE 25 MG TAB PO SCH ×2 (08:49→20:59)
[2019-07-05] MEDS: PREGABALIN 100 MG CAP PO SCH ×3 (08:49→21:01)
[2019-07-05] MEDS: MULTIVITAMIN TAB PO SCH (08:49)
[2019-07-05] MEDS: PANTOprazole 40 MG TAB PO SCH (08:50)
[2019-07-05] MEDS: QUETIAPINE FUMARATE 100 MG TABLET PO SCH ×2 (08:50→21:01)
[2019-07-05] MEDS: CLOPIDOGREL BISULFATE 75 MG TAB PO SCH (08:50)
[2019-07-05] MEDS: VORTIOXETINE HYDROBROMIDE PO SCH (08:51)
[2019-07-05] MEDS: CYANOCOBALAMIN 500 MCG TABLET (VITAMIN B-12) PO SCH (08:51)
[2019-07-05] MEDS: CHOLECALCIFEROL (VITAMIN D) 400 UNITS TABLET PO SCH (08:52)
[2019-07-05] MEDS: INSULIN ASPART 100 UNITS/ML 3 ML PEN SC SCH ×4 (08:55→20:40)
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
--- NOTE | 2019-07-05 10:26 | Pharmacy Report ---
PHA: Glycemic Control AP - Date of Service July 05, 2019 - Assessment & Plan The patient is currently receiving ~155 units of insulin per day. BSGs ranging 119 - 296 mg/dl over the past 24hrs. * Basal insulin: Lantus 72 units every 24 hours given at bedtime * Correctional Insulin: Novolog Correction per scale ACHS Goal Range: Low 110 mg/dL - High 140 mg/dL Correction Factor: 10 mg/dL/unit * Prandial insulin: Per carb ratio of 1 unit per 3.5 grams CHO consumed BSGs continue to improve, no changes needed to inpatient regimen at this time. Pharmacy will continue to monitor patient daily and write orders per [facility] inpatient glycemic control protocol. Thanks. * Please note that the plan above was derived based on current level of insulin resistance and hospital stress. These recommendations are appropriate for inpatient admission only. Plan of care upon discharge will need to be reassessed to avoid potential outpatient hypo/hyperglycemia.
[2019-07-05] MEDS: LURASIDONE HCL 40 MG TAB PO SCH (17:09)
[2019-07-05] MEDS: BENZTROPINE MESYLATE 1 MG TAB PO SCH (21:02)
[2019-07-05] MEDS: VENLAFAXINE HCL XR 75 MG CAPXR PO SCH (21:03)
[2019-07-05] MEDS: INSULIN GLARGINE SOLOSTAR 100 UNITS/ML 3 ML PEN SC SCH (21:05)
[2019-07-05] MEDS: ATORVASTATIN 40 MG TAB PO SCH (21:08)
[2019-07-05] MEDS: PRAZOSIN HCL 1 MG CAP PO SCH (21:09)
[2019-07-05] MEDS: QUETIAPINE FUMARATE 300 MG TABLET PO SCH (21:10)
[2019-07-05] MEDS: ROPINIROLE HCL 1 MG TABLET PO SCH (21:10)
[2019-07-06] MEDS: SUCRALFATE 1 GM/10 ML UDC PO SCH ×3 (09:02→17:53)
[2019-07-06] MEDS: LEVOTHYROXINE SODIUM 200 MCG TABLET PO SCH (09:02)
[2019-07-06] MEDS: FLUTICASONE/SALMETEROL 250/50 (ADVAIR) 14 PUFF/1 INHALER INH SCH ×2 (09:02→21:04)
[2019-07-06] MEDS: FERROUS SULFATE 325 MG TAB PO SCH ×2 (09:03→17:53)
[2019-07-06] MEDS: clonazePAM 0.5 MG TAB PO SCH ×3 (09:05→21:06)
[2019-07-06] MEDS: PREGABALIN 100 MG CAP PO SCH ×3 (09:07→21:05)
[2019-07-06] MEDS: METOPROLOL TARTRATE 25 MG TAB PO SCH ×2 (09:07→21:05)
[2019-07-06] MEDS: MULTIVITAMIN TAB PO SCH (09:08)
[2019-07-06] MEDS: CLOPIDOGREL BISULFATE 75 MG TAB PO SCH (09:08)
[2019-07-06] MEDS: PANTOprazole 40 MG TAB PO SCH (09:09)
[2019-07-06] MEDS: QUETIAPINE FUMARATE 100 MG TABLET PO SCH ×3 (09:09→14:11)
[2019-07-06] MEDS: CYANOCOBALAMIN 500 MCG TABLET (VITAMIN B-12) PO SCH (09:10)
[2019-07-06] MEDS: VORTIOXETINE HYDROBROMIDE PO SCH (09:10)
[2019-07-06] MEDS: CHOLECALCIFEROL (VITAMIN D) 400 UNITS TABLET PO SCH (09:11)
[2019-07-06] MEDS: INSULIN ASPART 100 UNITS/ML 3 ML PEN SC SCH ×4 (09:23→21:10)
--- NOTE | 2019-07-06 09:50 | Psychiatric Progress Note ---
Date of Service July 06, 2019 Impression / Recommendations Impression Patient with history of treatment refractory depression which has been persistently worse since her mother's in 2016. Dependent and avoidant traits complicate her functional level. She relies heavily on her cyanide case hardener and she has struggled with small tasks rather chronically at home such as keeping up with dishes or unpacking boxes. She requires assistance with her medication management at home as well. Secondary to declining mood she was being cross tapered from Effexor to Cymbalta as outpatient with abrupt decompensation resulting in medical presentation immediately prior to psychiatric admission here. Effexor has clearly been insufficiently effective and we are now cross tapering to Trintellix. Also reducing her dosage of lurasidone while titrating quetiapine to antipsychotic range, as quetiapine has historically been beneficial for sleep and anxiety as well. Additionally we will endeavor to minimize polypharmacy, particularly EMBLEM FUSER TENDER suppressing medications, given her cognitive impairment. Consider possibility of worsening underlying executive dysfunction possibly associated with cerebrovascular disease. She has a meeting with her blended cyanide case hardener today to explore outpatient services and supports. (1) Depression: 06/30 -The patient reports chronic depression dating back approximately 4 years without any substantial relief. -We will provide services to the patient on a locked unit with regular every 15 minute checks, and we will encourage participation in individual, group, activity, and milieu therapies. -The plan is to continue her current psychiatric medications. She will be seeing her outpatient psychiatrist, Dr. Ramos, over the weekend and he has told us that he has several thoughts about medication adjustments that he would like to make while the patient is safely confined in the hospital. -I have introduced the idea of ECT to the patient, and she has expressed interest in learning more about it. -The patient reports that she has chronic suicidal thoughts, but does not currently have any suicidal plan or intent. She notes that she did have suicidal intent approximately 30 years ago, but did not act on it and has never made an actual suicide attempt. 07/01 -It appears Effexor XR was started at only 150 mg since transfer to the unit but will defer re-titration in hopes of cross tapering to alternative antidepressant, specifically trintellix for alternative mechanism agent. She does not appear to be demonstrating evidence of noradrenergic withdrawal today however she has been on the Effexor for many years now and we will need to remain vigilant for potential need to slow down taper -Nursing has assisted with verifying coverage for Trintellix with outside pharmacy and it appears to have a $0 co-pay. Unfortunately it is nonformulary here at the hospital and will not be ready until Wednesday and will require transportation from a pharmacy. Initial plan would be to start the new antide pressant at 5 mg daily increasing by 5 mg every few days as we further taper the Effexor. -Auditory hallucinations are exacerbated above her baseline. I would like to re-simplify her antipsychotic regimen by tapering the Latuda and titrating the Seroquel. Presently she is on only 80 mg of Latuda which is 40 mg less than her outpatient dose and will plan to continue unchanged for now. if adjustment to antipsychotic needed for to discharge I would favor titration of seroquel. 07/02 -Affect is a little brighter today. She continues to do reasonably well on reduced Effexor so hopefully we will be able to continue to taper without too much trouble once Trintellix is available from the outside pharmacy for titration. We hope to have her sister or her cyanide case hardener retrieve the prescription tomorrow. Order has been placed to start trintellix 5 mg by mouth every morning on 07/03/2019. I would suggest that be quickly titrated over the next few days while Effexor is weaned. - As above patient continues to experience passive suicidal ideation without active intent however I do perceive that she remains at an elevated risk above her chronic baseline risk and mood had clearly been downtrending prior to her acutely altered mental status reciprocating this admission. I strongly feel that continued psychiatric hospitalization is necessary at this time and patient was agreeable to rescind her 72 hour notice after discussion today. 07/03 - Anticipating Trintellix to be brought in by friend marco a. Will give 5mg one-time dose when available, then increase to 10mg qAM if tolerated - Will reduce Effexor to 75mg tomorrow morning, in anticipation of Trintellix being initiated this evening - Continue remainder of home medications as above, focus on antidepressant medication adjustments - Consider adjustments to antipsychotic medications as well, though this may be deferred until after discharge depending on her tolerance for medication changes - Continue to encourage development of healthy and effective coping strategies - Pt reporting ongoing SI 07/04 - Continue treatment plan as above - Trintellix at 10mg and Effexor at 75mg; continue cross-taper as tolerated - Continue to work with patient on other medication changes as tolerated 07/05 - Increase Trintellix to 20mg daily for tomorrow, and continue venlafaxine XR 75mg daily - can reduce further in a couple days. - Continue lurasidone 80 mg daily, quetiapine, and prazosin. Fasting labs checked 06/28/2019; glucose 200, hemoglobin A1c 9.9, FLP within normal limits. - Meeting with outpatient cyanide case hardener today for discharge planning. 07/06 - Continue Trintellix 20mg; venlafaxine reduced to 37.5mg for this evening - Reducing lurasidone to 40mg qdd; titrating quetiapine to 50mg/50mg/400mg starting this evening - Reporting ongoing mood concerns, suicidality is chronic (2) Generalized anxiety disorder with panic attacks: 07/01 -Long history of severe anxiety -Interestingly when she appears more depressive her anxiety seems to isabella -Watch anxiety on reduced Lyrica as above -We will attempt to hold BuSpar to reduce risk for serotonin toxicity and mi nimize polypharmacy -Continue home dose Klonopin unchanged for now -Continue prazosin 5 mg at bedtime unchanged -Continue Seroquel 50 mg twice daily and 300 mg nightly which historically has been helpful for severe anxiety and insomnia. We will likely consider some further titration as we taper the Latuda as above however if she struggles to tolerate the antidepressant changes, we may defer this cross-taper to outpatient setting 07/02 - Anxiety appears mildly exacerbated in the last 24 hours, possibly associated with the changes yesterday. Attempting to find balance in effort to minimize EMBLEM FUSER TENDER suppression and risk for drug drug interactions while maintaining adequate anxiolysis 07/03 - Trintellix to be initiated when brought from retail pharmacy - Continue medication considerations as above 07/05 -Continue antidepressant cross-taper as above, and home dose of clonazepam. (3) Change in mental status: 06/30 -Although the patient tells us that she is continuing to have certain deficits in her short-term memory, and while she struggled with immediate memory testing today, based upon the data available in the record the patient's mental status and, more particularly, her short and long-term memory appear to have been improving. Today, she is oriented to person, place, year, month, and situation. She struggles to recall the name of the president finance company, but is successful in this regard eventually, where she had not been able to do this earlier in the hospital stay. She was not able to correctly guess the date within a tolerance of several days and, instead, said that she believed that we were in the "middle" of June, rather than at the end of the month. 07/01 -Appreciate neurology input. Consider possibility of underlying progressive cerebrovascular disease related neurocognitive disorder however that has not been readily apparent in the outpatient setting -No clear etiology identified for acutely altered mental status which occurred in setting of antidepressant cross-taper -We will attempt to reduce Lyrica to 100 mg 3 times daily which she has been taking for neuropathy prescribed by neurology for many years - consider gentle cogentin reduction as well (historically reductions have not been well tolerated) 07/02 -less cognitive slowing evident today 07/05 -Patient remains cognitively impaired, with poor memory of events of the last week and a half, and although she is oriented to self, place, year, and month, she does not know the day or date. (4) Diabetes: 06/30 -The patient is insulin-dependent. -We are continuing the diabetic regimen that was started on the medical floor. We have also requested a diabetic consult from the pharmacy. -The patient, despite her report of memory difficulties, seems quite clear about her diabetic medication regimen, and can correctly give the names and dosages of her diabetic medicines. -Fingerstick serum glucose level remeasured before meals and at bedtime. (5) Asthma: 06/30 -Patient describes having a "enlarged heart," and dyspnea on exertion. She also tells me that she has chronic asthma. -We will continue the bronchodilator medications that have been part of the patient's recent medication regimen. (6) Sleep apnea: 06/30 -Patient has obstructive sleep apnea and uses a CPAP machine. For that reason, she will require a medically necessary private room and one-to-one/direct view observation during the night while using her CPAP machine. (7) Hypertension: 06/30 -Patient takes several antihypertensive medications and these will be continued during her hospital stay. -Patient's vital signs, including blood pressure and pulse will be monitored daily. Inventory Assets Strengths: . Motivated to treatment and recovery. Positive relationship with her outpatient providers. Supportive sister. Able to work part-time (within the confines of her disability). Needs: Resolution of depression. Resolution of suicidal thoughts. Resolution of cognitive impairment. Risk Factors Assessment Male: No : Yes Do You Have Access To A Gun?: No Health Problems: Yes Mental Health Diagnoses: Yes Substance Use Disorders: No Previous Attempt: No Previous Psychiatric Hospitalization: Yes Hopelessness: No Smoker: No Protective Factors Assessment Restorationism Beliefs: No : No Responsible for Young Children: No Employed: Yes Stable Relationships: Yes (Patient reports that she has 2 friends, but does not see them.) Supportive Family: Yes (Her sister.) Good Rapport with Provider: Yes Absence of Any Risk Factors Above: No Interval History Identifying Information ADRY ONEAL is a 59-year-old F who currently lives in alone in a second floor apartment with her pet cat in [place], [place]. She has a long history of depression, as well as a history of multiple psychiatric hospitalizations. She was admitted to medicine because of an altered mental status, and transferred to psychiatry on 06/30/19 15:51 on a 201 voluntary agreement because of continued altered mental status and depression. Chief Complaint "Okay, I guess. Last night I was really anxious." Review of Systems Notes Constitutional: reports difficulty sleeping last evening Cardiovascular: denied Respiratory: denied Gastrointestinal: denied Neurological: reports ongoing difficulty with concentration and memory Psychiatric: denies symptoms other than stated above Total of at least 10 systems reviewed, pertinent positives as above and in HPI. Sleep Information Total Hours of Sleep: 7.25 Sleep Comments: pt continue on 1:1 staff coverage. pt on q-15 minute checks Meal Information Percent Meal Consumed - Breakfast: 100 Percent Meal Consumed - Lunch: 100 Percent Meal Consumed - Dinner: 100 Subjective Subjective Patient was seen & assessed and interval progress reviewed with nursing and social work. Staff reports patient continues to report confusion and poor memory. She admits to ongoing auditory hallucinations. Patient rated her mood a 6/10 and "anxious" last evening. Patient was seen today to assess progress since admission. She tells this provider that she was rather anxious last evening. Patient states, "my friends stop by to visit. They told me they had been here 5 times while I was in the hospital. I was upset because I could not remember this." Patient states that she enjoyed her visits with her friend and her boss. Patient feels as though she is improving somewhat, but continues to endorse auditory hallucinations which she describes as "this whisper thing going on." Pt states that "when the whispers are strong, they really get me down. That's when the deep dark secrets start" [referring to SI]. Pt states that she continues to have suicidal ideation, but has not intent to harm herself here on the unit. Pt is agreeable to dose adjustments of her antipsychotic medications to target persistent auditory hallucinations. Pt denies other needs or concerns at this time. Physical Exam Psychiatric Orientation: alert, oriented x 3 and cooperative (And pleasant) Apperance: appropriately dressed, + disheveled (Mildly) and appeared stated age Eye Contact: good eye contact Motor Behavior: no abnormal motor movements (Observed while sitting on edge of bed) Speech: normal rate/rhythm/volume of speech Affect: + depressed affect and mood congruent with affect Mood: + depressed mood ("I still feel like I do not belong") Thought Process: goal directed thought process, + concrete thought process and thought association intact Thought Content: + hopelessness, + worthlessness and + self deprecation Suicidal Thoughts: + reports suicidal thoughts (Chronic suicidality, still feels "like I do not belong here") Hallucinations: + auditory hallucinations ("Whispers" telling her she is "not good enough and does not belong here"); no visual hallucinations Cognition: attention grossly intact and language grossly intact; + recent memory not intact Insight: + limited insight Judgement: + limited judgement Vital Signs (Past 24 Hours) Last Vital Signs Temp 36.7 C 07/06/19 06:52 Pulse 88 07/06/19 06:53 Resp 20 07/06/19 06:52 BP 107/71 07/06/19 06:53 Pulse Ox 96 07/05/19 23:14 Results & Data Laboratory Results Laboratory Results - last 24 hr 07/05/19 07/05/19 07/05/19 08:37 12:43 17:05 POC Glucose 142 H 347 H* 243 H 07/05/19 07/06/19 20:31 08:04 POC Glucose 86 175 H Current Inpatient Medications Current Inpatient Medications: Current Inpatient Medications Acetaminophen (Tylenol) 650 mg PO Q4H PRN PRN Reason: Headache or Minor Fever Stop: 07/30/19 16:10 Al Hydrox/Mg Hydrox/Simethicone (Maalox) 30 ml PO Q4H PRN PRN Reason: GI Upset Stop: 07/30/19 16:10 Albuterol (Ventolin Hfa) 1 - 2 puffs INH Q4H PRN PRN Reason: Shortness Of Breath Stop: 07/30/19 16:47 Atorvastatin Calcium (Lipitor) 80 mg PO [facility] Stop: 07/30/19 21:59 Last Admin: 07/05/19 21:08 Dose: 80 mg Documented by: Benztropine Mesylate (Cogentin) 1 mg PO [facility] Stop: 07/31/19 21:59 Last Admin: 07/05/19 21:02 Dose: 1 mg Documented by: Bismuth Subsalicylate (Kaopectate) 15 ml PO PRN PRN PRN Reason: Loose Stool Stop: 07/30/19 16:10 Clonazepam (Klonopin) 1 mg PO [facility] Stop: 07/30/19 21:59 Last Admin: 07/05/19 21:04 Dose: 1 mg Documented by: Clonazepam (Klonopin) 0.25 mg PO 0900,1400 [facility] Stop: 07/31/19 08:59 Last Admin: 07/06/19 09:05 Dose: 0.25 mg Documented by: Clopidogrel [facility]ate (Plavix) [facility] Stop: 07/31/19 08:59 Last Admin: 07/06/19 09:08 Dose: 75 mg Documented by: Cyanocobalamin (Vitamin B-12) 2,000 mcg PO QAM [facility] Stop: 07/31/19 08:59 Last Admin: 07/06/19 09:10 Dose: 2,000 mcg Documented by: Ferrous Sulfate (Feosol) 325 mg PO BIDM [facility] Stop: 07/31/19 08:59 Last Admin: 07/06/19 09:03 Dose: 325 mg Documented by: Glucagon (Glucagen) 1 mg SQ UD PRN; Protocol PRN Reason: Hypoglycemia Protocol Stop: 07/30/19 17:44 Glucagon (Glucagen) 1 mg SQ PRN PRN PRN Reason: Hypoglycemia Treatment Stop: 07/30/19 17:12 Glucose (Glucose 40%) 15 - 30 gm PO UD PRN; Protocol PRN Reason: Hypoglycemia Protocol Stop: 07/30/19 17:44 Glucose (Dex4 Glucose) 4 - 8 tabs PO UD PRN; Protocol PRN Reason: Hypoglycemia Protocol Stop: 07/30/19 17:44 Glucose (Dex4 Glucose) 4 - 8 tabs PO QID PRN PRN Reason: Hypoglycemia Treatment Stop: 07/30/19 17:12 Insulin Aspart (Novolog Flexpen) 0 units SC ACHS [facility] Stop: 07/30/19 21:59 Last Admin: 07/06/19 09:23 Dose: 19 units Documented by: Insulin Glargine (Lantus Solostar Pen) 72 units SC [facility] Stop: 08/02/19 21:59 Last Admin: 07/05/19 21:05 Dose: 72 units Documented by: Levothyroxine Sodium (Synthroid) 200 mcg PO DAILYBB [facility] Stop: 07/31/19 07:59 Last Admin: 07/06/19 09:02 Dose: 200 mcg Documented by: Lurasidone HCl (Latuda) 80 mg PO QDD [facility] Stop: 07/30/19 21:59 Last Admin: 07/05/19 17:09 Dose: 80 mg Documented by: Metoprolol Tartrate (Lopressor) 12.5 mg PO BID [facility] Stop: 07/30/19 20:59 Last Admin: 07/06/19 09:07 Dose: 12.5 mg Documented by: Miscellaneous (Carbohydrates For Hypoglycemia) 15 - 30 gm PO UD PRN PRN Reason: Hypoglycemia Treatment Stop: 07/30/19 17:44 Miscellaneous Information (Consult Glycemic Management Pharmacy) 1 ea N/A UD PRN PRN Reason: Consult Stop: 07/30/19 17:26 Multivitamins (Multivitamin Tab) 1 tab PO QAM [facility] Stop: 07/31/19 08:59 Last Admin: 07/06/19 09:08 Dose: 1 tab Documented by: Pantoprazole Sodium (Protonix) 40 mg PO QAM [facility] Stop: 07/31/19 08:59 Last Admin: 07/06/19 09:09 Dose: 40 mg Documented by: Polyethylene Glycol (Miralax Powder Packet) 17 gm PO DAILY PRN PRN Reason: Constipation Stop: 07/30/19 16:47 Prazosin HCl (Prazosin Hcl) 5 mg PO HS [facility] Stop: 07/30/19 21:59 Last Admin: 07/05/19 21:09 Dose: 5 mg Documented by: Pregabalin (Lyrica) 100 mg PO TID [facility] Stop: 07/31/19 20:59 Last Admin: 07/06/19 09:07 Dose: 100 mg Documented by: Quetiapine Fumarate (Seroquel) 300 mg PO HS [facility] Stop: 07/30/19 21:59 Last Admin: 07/05/19 21:10 Dose: 300 mg Documented by: Quetiapine Fumarate (Seroquel) 50 mg PO DAILY@0900,1400 [facility] Stop: 07/30/19 20:59 Last Admin: 07/06/19 09:17 Dose: Not Given Documented by: Ropinirole HCl (Requip) 1 mg PO HS [facility] Stop: 07/30/19 21:59 Last Admin: 07/05/19 21:10 Dose: 1 mg Documented by: Fluticasone/Salmeterol (Advair Diskus 250/50) 1 puffs INH BID [facility] Stop: 07/30/19 20:59 Last Admin: 07/06/19 09:02 Dose: 1 puffs Documented by: Sodium Chloride ([place] Nasal) 1 - 2 sprays NA PRN PRN PRN Reason: Nasal Dryness/Congestion Stop: 07/30/19 16:10 Sucralfate (Carafate) 1 gm PO TIDM [facility] Stop: 08/04/19 12:29 Last Admin: 07/06/19 09:02 Dose: 1 gm Documented by: Venlafaxine HCl (Effexor Extended Release) 75 mg PO HS [facility] Stop: 08/03/19 21:59 Last Admin: 07/05/19 21:03 Dose: 75 mg Documented by: Vitamin D (Vitamin D3) 400 units PO QAM [facility] Stop: 07/31/19 08:59 Last Admin: 07/06/19 09:11 Dose: 400 units Documented by: Vortioxetine (Trintellix) 2 ea PO QAM [facility] Stop: 08/03/19 08:59 Last Admin: 07/06/19 09:10 Dose: 2 ea Documented by: Mental Health & Subst Abuse Tx Psychiatrist Name of Psychiatrist: Arcadio Liu - Dr. Ramos Psychiatrist's Date of Appointment with Psychiatrist: 07/12/19 Time of Appointment with Psychiatrist: 8:00 a.m. Psychiatric Appointment Comment: [address] [place] [address], [place] [address] Therapist Name of Therapist: [facility]onic Cristina Dowd Therapist's Date of Therapist Appointment: 07/17/19 Time of Therapist Appointment: 9:00 a.m. Therapy Appointment Comment: [address], [place] [address] On Site Wastewater Systems Technician Name of On Site Wastewater Systems Technician: Harshil Lindsay Darci Avila Phone Number for On Site Wastewater Systems Technician: [phone] Case Management Appointment Comment: [id number], [place], [place] [address] Post Discharge Appointments Primary Care Physician Name Of Family Doctor: CI[facility] Date of Appointment with PCP: 07/19/19 Time of Appointment with PCP: 9:00 a.m. Provider Appointment Comment: [address], [place] [address] Partial or Psych Rehab Name of Partial or Psych Rehab: Psych Rehab - resume your normal schedule Other #1: Name of Aftercare Appointment: [facility] Phone Number of Aftercare Appointment: Mayda [phone] Aftercare Appointment Comment: Resume routine schedule of every Wednesday at 9 a.m. Contact Information Discharge Discharge Address: [facility] [address], [place] [address] CPT Code CPT Code 07255 (1) Sleep apnea Sleep apnea type: obstructive Qualified Code(s): G47.33 - Obstructive sleep apnea (adult) (pediatric) (2) Diabetes Diabetes mellitus complication status: without complication Diabetes mellitus assistant terminal manager insulin use: with assistant terminal manager use Diabetes mellitus type: type 2 Qualified Code(s): E11.9 - Type 2 diabetes mellitus without complications; Z79.4 - senior living (current) use of insulin (3) Depression Active/Remission status: currently active Depression Type: major depressive disorder Major depression recurrence: unspecified whether recurrent Major depression episode severity: severe Psychotic features: with psychotic features Qualified Code(s): F32.3 - Major depressive disorder, single episode, severe with psychotic features (4) Hypertension Hypertension type: unspecified Qualified Code(s): I10 - Essential (primary) hypertension (5) Asthma Asthma complication type: uncomplicated Asthma persistence: intermittent Asthma severity: mild Qualified Code(s): J45.20 - Mild intermittent asthma, uncomplicated
--- NOTE | 2019-07-06 14:57 | Pharmacy Report ---
Pharmacy Glycemic Short Note 2 - Date of Service July 06, 2019 - Glycemic Short BSG Results (Last 24 hours): 07/05/19 07/05/19 07/06/19 17:05 20:31 08:04 POC Glucose 243 H 86 175 H 07/06/19 12:38 POC Glucose 260 H OUTPATIENT ANTIDIABETIC REGIMEN: * Dulaglutide 1.5 mg SQ weekly (Wednesday) * Lantus 60 units SQ qHS * Aspart 18 units TID with meals * Metformin 1000 mg PO BID * A1c 9.9% (06/28/19) ASSESSMENT: 07/06: * Patient received 152 units of insulin yesterday (72 units of which were basal) * BSGs ranging 86-347 over past 24 hours * Fasting BSG this morning of 175 mg/dL * Patient is noted to have been snacking throughout the day, which would explain elevated BSGs * Significant drop from dinner to HS yesterday (will decrease correction factor slightly) 07/01: * 59 yr old T2DM female with decent inpatient glycemic control. She received 105 units of insulin yesterday. * Patient is on Lantus 60 units qHS at home. On 06/30 and 07/01 the patient was given an additional 15 units SQ in the AM. I will transition back to once daily dosing in the evening since this is how the patient takes Lantus at home. * Post prandial BSGs are mostly at/near goal. Continue same for now. PLAN FOR INPATIENT GLYCEMIC CONTROL: * Hold outpatient oral diabetes medications * Basal insulin - increase slightly * Lantus 75 units SQ qHS * Bolus insulin - tighten carb coverage and loosen correction factor * NovoLog per scale ACHS or Q6hrs while NPO * Goal Range: Low 110 mg/dL - High 140 mg/dL * Correction Factor: 12 mg/dL/unit * Nutritional / Prandial insulin per carb ratio of 1 unit per 3 grams CHO consumed PLAN FOR DISCHARGE: A1c = 9.9 % on 06/28/19 Goal A1c = < 8 % based on age and comorbidities If fasting BSG is > 130 mg/dL at home, I recommend increasing Lantus to 75 units SQ once daily in the evening If meal time BSG is elevated at home, I recommend increasing Aspart to 22 units TID with meals and continuing to titrate per discretion of outpatient provider.
[2019-07-06] MEDS: LURASIDONE HCL 40 MG TAB PO SCH (18:01)
[2019-07-06] MEDS: BENZTROPINE MESYLATE 1 MG TAB PO SCH (21:06)
[2019-07-06] MEDS: ATORVASTATIN 40 MG TAB PO SCH (21:06)
[2019-07-06] MEDS: VENLAFAXINE HCL XR 37.5 MG CAPXR PO SCH (21:06)
[2019-07-06] MEDS: PRAZOSIN HCL 1 MG CAP PO SCH (21:07)
[2019-07-06] MEDS: ROPINIROLE HCL 1 MG TABLET PO SCH (21:07)
[2019-07-06] MEDS: QUETIAPINE FUMARATE 200 MG TAB PO SCH (21:07)
[2019-07-06] MEDS: INSULIN GLARGINE SOLOSTAR 100 UNITS/ML 3 ML PEN SC SCH (21:09)
[2019-07-07] MEDS: FLUTICASONE/SALMETEROL 250/50 (ADVAIR) 14 PUFF/1 INHALER INH SCH ×2 (09:12→21:27)
[2019-07-07] MEDS: clonazePAM 0.5 MG TAB PO SCH ×3 (09:13→21:35)
[2019-07-07] MEDS: PREGABALIN 100 MG CAP PO SCH ×3 (09:13→21:34)
[2019-07-07] MEDS: VORTIOXETINE HYDROBROMIDE PO SCH (09:13)
[2019-07-07] MEDS: MULTIVITAMIN TAB PO SCH (09:14)
[2019-07-07] MEDS: LEVOTHYROXINE SODIUM 200 MCG TABLET PO SCH (09:14)
[2019-07-07] MEDS: CLOPIDOGREL BISULFATE 75 MG TAB PO SCH (09:14)
[2019-07-07] MEDS: PANTOprazole 40 MG TAB PO SCH (09:14)
[2019-07-07] MEDS: FERROUS SULFATE 325 MG TAB PO SCH ×2 (09:14→17:14)
[2019-07-07] MEDS: QUETIAPINE FUMARATE 100 MG TABLET PO SCH (09:14)
[2019-07-07] MEDS: METOPROLOL TARTRATE 25 MG TAB PO SCH ×2 (09:14→21:31)
[2019-07-07] MEDS: SUCRALFATE 1 GM/10 ML UDC PO SCH ×3 (09:15→17:13)
[2019-07-07] MEDS: CYANOCOBALAMIN 500 MCG TABLET (VITAMIN B-12) PO SCH (09:15)
[2019-07-07] MEDS: CHOLECALCIFEROL (VITAMIN D) 400 UNITS TABLET PO SCH (09:15)
[2019-07-07] MEDS: INSULIN ASPART 100 UNITS/ML 3 ML PEN SC SCH ×4 (09:15→21:45)
--- NOTE | 2019-07-07 09:53 | Pharmacy Report ---
Pharmacy Glycemic Short Note 2 - Date of Service July 07, 2019 - Glycemic Short BSG Results (Last 24 hours): 07/06/19 07/06/19 07/06/19 12:38 17:18 21:02 POC Glucose 260 H 134 H 137 H 07/07/19 08:42 POC Glucose 123 H OUTPATIENT ANTIDIABETIC REGIMEN: * Dulaglutide 1.5 mg SQ weekly (Wednesday) * Lantus 60 units SQ qHS * Aspart 18 units TID with meals * Metformin 1000 mg PO BID * A1c 9.9% (06/28/19) ASSESSMENT: 07/07 * Patient is currently receiving an average of 150 units of insulin per day * 75 units of basal insulin * 88 units of prandial/correctional insulin * BSGs ranging 134-260 over the past 24hrs * Risk factors for insulin resistance are constant over the past 24hrs * Anticipating insulin regimen will not need adjusted at this time 07/06: * Patient received 152 units of insulin yesterday (72 units of which were basal) * BSGs ranging 86-347 over past 24 hours * Fasting BSG this morning of 175 mg/dL * Patient is noted to have been snacking throughout the day, which would explain elevated BSGs * Significant drop from dinner to HS yesterday (will decrease correction factor slightly) 07/01: * 59 yr old T2DM female with decent inpatient glycemic control. She received 105 units of insulin yesterday. * Patient is on Lantus 60 units qHS at home. On 06/30 and 07/01 the patient was given an additional 15 units SQ in the AM. I will transition back to once daily dosing in the evening since this is how the patient takes Lantus at home. * Post prandial BSGs are mostly at/near goal. Continue same for now. PLAN FOR INPATIENT GLYCEMIC CONTROL: * Continue to hold outpatient oral and GLP-1 agents * Basal insulin - no change * Lantus 75 units SQ qHS * Bolus insulin - no change * NovoLog per scale ACHS or Q6hrs while NPO * Goal Range: Low 110 mg/dL - High 140 mg/dL * Correction Factor: 12 mg/dL/unit * Nutritional / Prandial insulin per carb ratio of 1 unit per 3 grams CHO consumed PLAN FOR DISCHARGE: A1c = 9.9 % on 06/28/19 Goal A1c = < 8 % based on age and comorbidities If fasting BSG is > 130 mg/dL at home, I recommend increasing Lantus to 75 units SQ once daily in the evening If meal time BSG is elevated at home, I recommend increasing Aspart to 22 units TID with meals and continuing to titrate per discretion of outpatient provider.
--- NOTE | 2019-07-07 10:11 | Psychiatric Progress Note ---
Date of Service July 07, 2019 Impression / Recommendations Impression Patient with history of treatment refractory depression which has been persistently worse since her mother's in 2016. Dependent and avoidant traits complicate her functional level. She relies heavily on her showcase maker and she has struggled with small tasks rather chronically at home such as keeping up with dishes or unpacking boxes. She requires assistance with her medication management at home as well. Secondary to declining mood she was being cross tapered from Effexor to Cymbalta as outpatient with abrupt decompensation resulting in medical presentation immediately prior to psychiatric admission here. Effexor has clearly been insufficiently effective and we are now cross tapering to Trintellix. Also reducing her dosage of lurasidone while titrating quetiapine to antipsychotic range, as quetiapine has historically been beneficial for sleep and anxiety as well. Additionally we will endeavor to minimize polypharmacy, particularly MARKETING COMMUNICATIONS ASSISTANT suppressing medications, given her cognitive impairment. Consider possibility of worsening underlying executive dysfunction possibly associated with cerebrovascular disease. She has a meeting with her blended showcase maker today to explore outpatient services and supports. (1) Depression: 06/30 -The patient reports chronic depression dating back approximately 4 years without any substantial relief. -We will provide services to the patient on a locked unit with regular every 15 minute checks, and we will encourage participation in individual, group, activity, and milieu therapies. -The plan is to continue her current psychiatric medications. She will be seeing her outpatient psychiatrist, Dr. Ramos, over the weekend and he has told us that he has several thoughts about medication adjustments that he would like to make while the patient is safely confined in the hospital. -I have introduced the idea of ECT to the patient, and she has expressed interest in learning more about it. -The patient reports that she has chronic suicidal thoughts, but does not currently have any suicidal plan or intent. She notes that she did have suicidal intent approximately 30 years ago, but did not act on it and has never made an actual suicide attempt. 07/01 -It appears Effexor XR was started at only 150 mg since transfer to the unit but will defer re-titration in hopes of cross tapering to alternative antidepressant, specifically trintellix for alternative mechanism agent. She does not appear to be demonstrating evidence of noradrenergic withdrawal today however she has been on the Effexor for many years now and we will need to remain vigilant for potential need to slow down taper -Nursing has assisted with verifying coverage for Trintellix with outside pharmacy and it appears to have a $0 co-pay. Unfortunately it is nonformulary here at the hospital and will not be ready until Wednesday and will require transportation from a pharmacy. Initial plan would be to start the new antide pressant at 5 mg daily increasing by 5 mg every few days as we further taper the Effexor. -Auditory hallucinations are exacerbated above her baseline. I would like to re-simplify her antipsychotic regimen by tapering the Latuda and titrating the Seroquel. Presently she is on only 80 mg of Latuda which is 40 mg less than her outpatient dose and will plan to continue unchanged for now. if adjustment to antipsychotic needed for to discharge I would favor titration of seroquel. 07/02 -Affect is a little brighter today. She continues to do reasonably well on reduced Effexor so hopefully we will be able to continue to taper without too much trouble once Trintellix is available from the outside pharmacy for titration. We hope to have her sister or her showcase maker retrieve the prescription tomorrow. Order has been placed to start trintellix 5 mg by mouth every morning on 07/03/2019. I would suggest that be quickly titrated over the next few days while Effexor is weaned. - As above patient continues to experience passive suicidal ideation without active intent however I do perceive that she remains at an elevated risk above her chronic baseline risk and mood had clearly been downtrending prior to her acutely altered mental status reciprocating this admission. I strongly feel that continued psychiatric hospitalization is necessary at this time and patient was agreeable to rescind her 72 hour notice after discussion today. 07/03 - Anticipating Trintellix to be brought in by friend marco a. Will give 5mg one-time dose when available, then increase to 10mg qAM if tolerated - Will reduce Effexor to 75mg tomorrow morning, in anticipation of Trintellix being initiated this evening - Continue remainder of home medications as above, focus on antidepressant medication adjustments - Consider adjustments to antipsychotic medications as well, though this may be deferred until after discharge depending on her tolerance for medication changes - Continue to encourage development of healthy and effective coping strategies - Pt reporting ongoing SI 07/04 - Continue treatment plan as above - Trintellix at 10mg and Effexor at 75mg; continue cross-taper as tolerated - Continue to work with patient on other medication changes as tolerated 07/05 - Increase Trintellix to 20mg daily for tomorrow, and continue venlafaxine XR 75mg daily - can reduce further in a couple days. - Continue lurasidone 80 mg daily, quetiapine, and prazosin. Fasting labs checked 06/28/2019; glucose 200, hemoglobin A1c 9.9, FLP within normal limits. - Meeting with outpatient showcase maker today for discharge planning. 07/06 - Continue Trintellix 20mg; venlafaxine reduced to 37.5mg for this evening - Reducing lurasidone to 40mg qdd; titrating quetiapine to 50mg/50mg/400mg starting this evening - Reporting ongoing mood concerns, suicidality is chronic 07/07 - Quetiapine titrated to 75mg/75mg/400mg for today - continue lurasidone 40mg qdd, with ability to discontinue over weekend if tolerating changes - Continue Trintellix 20mg and venlafaxine 37.5mg (consider discontinuation during this admission to avoid additional medication confusion on discharge) - Pt denies auditory hallucinations last evening or thus far this morning - therefore no suicidal ideation today - Consider discharge for Wednesday, as patient will then have support for medication management through [facility] (2) Generalized anxiety disorder with panic attacks: 07/01 -Long history of severe anxiety -Interestingly when she appears more depressive her anxiety seems to isabella -Watch anxiety on reduced Lyrica as above -We will attempt to hold BuSpar to reduce risk for serotonin toxicity and minimize polypharmacy -Continue home dose Klonopin unchanged for now -Continue prazosin 5 mg at bedtime unchanged -Continue Seroquel 50 mg twice daily and 300 mg nightly which historically has been helpful for severe anxiety and insomnia. We will likely consider some further titration as we taper the Latuda as above however if she struggles to tolerate the antidepressant changes, we may defer this cross-taper to outpatient setting 07/02 - Anxiety appears mildly exacerbated in the last 24 hours, possibly associated with the changes yesterday. Attempting to find balance in effort to minimize MARKETING COMMUNICATIONS ASSISTANT suppression and risk for drug drug interactions while maintaining adequate anxiolysis 07/03 - Trintellix to be initiated when brought from retail pharmacy - Continue medication considerations as above 07/05 -Continue antidepressant cross-taper as above, and home dose of clonazepam. 07/07 - As above, quetiapine has been titrated to 75mg/75mg/400mg - titrations have historically proven beneficial for level of anxiety as well as management of psychotic symptoms (3) Change in mental status: 06/30 -Although the patient tells us that she is continuing to have certain deficits in her short-term memory, and while she struggled with immediate memory testing today, based upon the data available in the record the patient's mental status and, more particularly, her short and long-term memory appear to have bee n improving. Today, she is oriented to person, place, year, month, and situation. She struggles to recall the name of the bank president, but is successful in this regard eventually, where she had not been able to do this earlier in the hospital stay. She was not able to correctly guess the date within a tolerance of several days and, instead, said that she believed that we were in the "middle" of June, rather than at the end of the month. 07/01 -Appreciate neurology input. Consider possibility of underlying progressive cerebrovascular disease related neurocognitive disorder however that has not been readily apparent in the outpatient setting -No clear etiology identified for acutely altered mental status which occurred in setting of antidepressant cross-taper -We will attempt to reduce Lyrica to 100 mg 3 times daily which she has been taking for neuropathy prescribed by neurology for many years - consider gentle cogentin reduction as well (historically reductions have not been well tolerated) 07/02 -less cognitive slowing evident today 07/05 -Patient remains cognitively impaired, with poor memory of events of the last week and a half, and although she is oriented to self, place, year, and month, she does not know the day or date. 07/07 - Cognition appears to be improving; patient reports some lapses in memory (especially events from the medical floor), but remains alert and oriented (4) Diabetes: 06/30 -The patient is insulin-dependent. -We are continuing the diabetic regimen that was started on the medical floor. We have also requested a diabetic consult from the pharmacy. -The patient, despite her report of memory difficulties, seems quite clear about her diabetic medication regimen, and can correctly give the names and dosages of her diabetic medicines. -Fingerstick serum glucose level remeasured before meals and at bedtime. 07/07 - Continue management as above - Consult placed for duty officer, now that patient is better able to participate and retain information - HgbA1c = 9.9 on medical floor; will schedule appointment with PCP for follow-up after discharge - Appreciate management assistance from glycemic pharmacy (5) Asthma: 06/30 -Patient describes having a "enlarged heart," and dyspnea on exertion. She also tells me that she has chronic asthma. -We will continue the bronchodilator medications that have been part of the patient's recent medication regimen. (6) Sleep apnea: 06/30 -Patient has obstructive sleep apnea and uses a CPAP machine. For that reason, she will require a medically necessary private room and one-to-one/direct view observation during the night while using her CPAP machine. (7) Hypertension: 06/30 -Patient takes several antihypertensive medications and these will be continued during her hospital stay. -Patient's vital signs, including blood pressure and pulse will be monitored daily. Inventory Assets Strengths: Motivated to treatment and recovery. Positive relationship with her outpatient providers. Supportive sister. Able to work part-time (within the confines of her disability). Needs: Resolution of depression. Resolution of suicidal thoughts. Resolution of cognitive impairment. Risk Factors Assessment Male: No : Yes Do You Have Access To A Gun?: No Health Problems: Yes Mental Health Diagnoses: Yes Substance Use Disorders: No Previous Attempt: No Previous Psychiatric Hospitalization: Yes Hopelessness: No Smoker: No Protective Factors Assessment Nondenominational Beliefs: No : No Responsible for Young Children: No Employed: Yes Stable Relationships: Yes (Patient reports that she has 2 friends, but does not see them.) Supportive Family: Yes (Her sister.) Good Rapport with Provider: Yes Absence of Any Risk Factors Above: No Interval History Identifying Information ADRY ONEAL is a 59-year-old F who currently lives in alone in a second floor apartment with her pet cat in [place], [place]. She has a long history of depression, as well as a history of multiple psychiatric hospitalizations. She was admitted to medicine because of an altered mental status, and transferred to psychiatry on 06/30/19 15:51 on a 201 voluntary agreement because of continued altered mental status and depression. Chief Complaint "I'm doing better I think." Review of Systems Notes Constitutional: reports improved sleep last evening, mild fatigue today Cardiovascular: denied Respiratory: denied Gastrointestinal: denied Neurological: denied Psychiatric: denies symptoms other than stated above Total of at least 10 systems reviewed, pertinent positives as above and in HPI. Sleep Information Total Hours of Sleep: 6 Sleep Comments: pt continue on 1:1 staff coverage. pt on q-15 minute checks Meal Information Percent Meal Consumed - Breakfast: 100 Percent Meal Consumed - Lunch: 100 Percent Meal Consumed - Dinner: 100 Subjective Subjective Patient was seen & assessed and interval progress reviewed with treatment team. Staff reports the patient has appeared to be doing well. Medication management through [facility] has been coordinated, and it is felt most appropriate to discharge the patient when they are available to assist with implementing medication changes made during this admission. Pt was seen today to assess progress since admission. Pt states she feels she may be "getting better." This provider reviewed with the patient anticipated discharge date of 07/10, to allow for coordination of care with [facility]. Pt agreed that this was important and states she feels she would be ready to return home by that time. She admits that she is anxious about returning home, as she continues to have unpacked moving boxes and garbage piled in her apartment. She also reports difficulty coping with the fact that her apartment is on the second floor. She states that her showcase maker is looking into a home health aid, and she is optimistic this will allow her some assistance with sorting through her belongings and cleaning up her apartment. Pt shares with this provider - "all I have in my living room is a recliner and a TV. I'd really like a couch. It's getting colder. I picture myself in the winter sitting on the couch, crocheting, sipping a hot chocolate, eating bon-bons or something like that." Pt becomes rather tearful after disclosing this dream, as she states she feels "like a failure" for not having the necessary room in her apartment to fit a couch. We discussed that dreams are more realistically achieved when we have motivation and when we set smaller goals. Pt was asked to consider using her desire for a couch as motivation to start sorting through just the boxes in her living room - to use this as motivation. She said would consider this. Pt states she is tolerating medication adjustments and has not had auditory hallucinations since yesterday morning/afternoon. Pt is feeling anxious, but mildly optimistic. She denies other acute needs or concerns at this time. Physical Exam Psychiatric Orientation: alert, oriented x 3 and cooperative Apperance: appropriately dressed, + disheveled (malodorous, has not yet showered during her stay) and appeared stated age Eye Contact: good eye contact Motor Behavior: steady gait and station; + abnormal motor movements (mild rocking motion observed while sitting on bed) Speech: normal rate/rhythm/volume of speech Affect: + blunted affect and mood congruent with affect Mood: + depressed mood ("I am feeling better, just still so much to do") Thought Process: goal directed thought process, clear/coherent thought process, + concrete thought process and thought association intact Thought Content: reality based without delusions, + hopelessness (ongoing, but admits to some slight improvement), + loneliness and + self deprecation Suicidal Thoughts: denies suicidal thoughts (denies today, as no auditory hallucinations) and denies suicidal intent Homicidal Thoughts: denies homicidal thoughts Hallucinations: no auditory hallucinations (denies "whispers" last evening or this morning) and no visual hallucinations Cognition: attention grossly intact and language grossly intact Insight: + limited insight Judgement: + fair judgement Vital Signs (Past 24 Hours) Last Vital Signs Temp 36.8 C 07/07/19 06:54 Pulse 101 H 07/07/19 06:54 Resp 18 07/07/19 06:54 BP 135/76 07/07/19 06:54 Pulse Ox 98 07/06/19 23:26 Results & Data Laboratory Results Laboratory Results - last 24 hr 07/06/19 07/06/19 07/06/19 12:38 17:18 21:02 POC Glucose 260 H 134 H 137 H 07/07/19 08:42 POC Glucose 123 H Current Inpatient Medications Current Inpatient Medications: Current Inpatient Medications Acetaminophen (Tylenol) 650 mg PO Q4H PRN PRN Reason: Headache or Minor Fever Stop: 07/30/19 16:10 Al Hydrox/Mg Hydrox/Simethicone (Maalox) 30 ml PO Q4H PRN PRN Reason: GI Upset Stop: 07/30/19 16:10 Albuterol (Ventolin Hfa) 1 - 2 puffs INH Q4H PRN PRN Reason: Shortness Of Breath Stop: 07/30/19 16:47 Atorvastatin Calcium (Lipitor) 80 mg PO HS [facility] Stop: 07/30/19 21:59 Last Admin: 07/06/19 21:06 Dose: 80 mg Documented by: Benztropine Mesylate (Cogentin) 1 mg PO HS [facility] Stop: 07/31/19 21:59 Last Admin: 07/06/19 21:06 Dose: 1 mg Documented by: Bismuth Subsalicylate (Kaopectate) 15 ml PO PRN PRN PRN Reason: Loose Stool Stop: 07/30/19 16:10 Clonazepam (Klonopin) 1 mg PO HS [facility] Stop: 07/30/19 21:59 Last Admin: 07/06/19 21:06 Dose: 1 mg Documented by: Clonazepam (Klonopin) 0.25 mg PO 0900,1400 [facility] Stop: 07/31/19 08:59 Last Admin: 07/07/19 09:13 Dose: 0.25 mg Documented by: Clopidogrel Bisulfate (Plavix) 75 mg PO QAM [facility] Stop: 07/31/19 08:59 Last Admin: 07/07/19 09:14 Dose: 75 mg Documented by: Cyanocobalamin (Vitamin B-12) 2,000 mcg PO QAM [facility] Stop: 07/31/19 08:59 Last Admin: 07/07/19 09:15 Dose: 2,000 mcg Documented by: Ferrous Sulfate (Feosol) 325 mg PO BIDM [facility] Stop: 07/31/19 08:59 Last Admin: 07/07/19 09:14 Dose: 325 mg Documented by: Glucagon (Glucagen) 1 mg SQ UD PRN; Protocol PRN Reason: Hypoglycemia Protocol Stop: 07/30/19 17:44 Glucagon (Glucagen) 1 mg SQ PRN PRN PRN Reason: Hypoglycemia Treatment Stop: 07/30/19 17:12 Glucose (Glucose 40%) 15 - 30 gm PO UD PRN; Protocol PRN Reason: Hypoglycemia Protocol Stop: 07/30/19 17:44 Glucose (Dex4 Glucose) 4 - 8 tabs PO UD PRN; Protocol PRN Reason: Hypoglycemia Protocol Stop: 07/30/19 17:44 Glucose (Dex4 Glucose) 4 - 8 tabs PO QID PRN PRN Reason: Hypoglycemia Treatment Stop: 07/30/19 17:12 Insulin Aspart (Novolog Flexpen) 0 units [facility] Stop: 07/30/19 21:59 Last Admin: 07/07/19 09:15 Dose: 13 units Documented by: Insulin Glargine (Lantus Solostar Pen) 75 units [facility] Stop: 08/05/19 21:59 Last Admin: 07/06/19 21:09 Dose: 75 units Documented by: Levothyroxine Sodium (Synthroid) 200 mcg PO DAILYBB [facility] Stop: 07/31/19 07:59 Last Admin: 07/07/19 09:14 Dose: 200 mcg Documented by: Lurasidone HCl (Latuda) 40 mg PO QDD [facility] Stop: 08/05/19 17:44 Last Admin: 07/06/19 18:01 Dose: 40 mg Documented by: Metoprolol Tartrate (Lopressor) 12.5 mg PO BID [facility] Stop: 07/30/19 20:59 Last Admin: 07/07/19 09:14 Dose: 12.5 mg Documented by: Miscellaneous (Carbohydrates For Hypoglycemia) 15 - 30 gm PO UD PRN PRN Reason: Hypoglycemia Treatment Stop: 07/30/19 17:44 Miscellaneous Information (Consult Glycemic Management Pharmacy) 1 ea N/A UD PRN PRN Reason: Consult Stop: 07/30/19 17:26 Multivitamins (Multivitamin Tab) 1 tab PO QAM [facility] Stop: 07/31/19 08:59 Last Admin: 07/07/19 09:14 Dose: 1 tab Documented by: Pantoprazole Sodium (Protonix) 40 mg PO QAM [facility] Stop: 07/31/19 08:59 Last Admin: 07/07/19 09:14 Dose: 40 mg Documented by: Polyethylene Glycol (Miralax Powder Packet) 17 gm PO DAILY PRN PRN Reason: Constipation Stop: 07/30/19 16:47 Prazosin HCl (Prazosin Hcl) 5 [address] [facility] Stop: 07/30/19 21:59 Last Admin: 07/06/19 21:07 Dose: 5 mg Documented by: Pregabalin (Lyrica) 100 mg PO TID [facility] Stop: 07/31/19 20:59 Last Admin: 07/07/19 09:13 Dose: 100 mg Documented by: Quetiapine Fumarate (Seroquel) 50 mg PO DAILY@0900,1400 [facility] Stop: 07/30/19 20:59 Last Admin: 07/07/19 09:14 Dose: 50 mg Documented by: Quetiapine Fumarate (Seroquel) 400 mg PO HS [facility] Stop: 08/05/19 21:59 Last Admin: 07/06/19 21:07 Dose: 400 mg Documented by: Ropinirole HCl (Requip) 1 mg PO HS [facility] Stop: 07/30/19 21:59 Last Admin: 07/06/19 21:07 Dose: 1 mg Documented by: Fluticasone/Salmeterol (Advair Diskus 250/50) 1 puffs INH BID [facility] Stop: 07/30/19 20:59 Last Admin: 07/07/19 09:12 Dose: 1 puffs Documented by: Sodium Chloride ([place] Nasal) 1 - 2 sprays NA PRN PRN PRN Reason: Nasal Dryness/Congestion Stop: 07/30/19 16:10 Sucralfate (Carafate) 1 gm PO TIDM [facility] Stop: 08/04/19 12:29 Last Admin: 07/07/19 09:15 Dose: 1 gm Documented by: Venlafaxine HCl (Effexor Extended Release) 37.5 mg PO HS [facility] Stop: 08/05/19 21:59 Last Admin: 07/06/19 21:06 Dose: 37.5 mg Documented by: Vitamin D (Vitamin D3) 400 units PO QAM [facility] Stop: 07/31/19 08:59 Last Admin: 07/07/19 09:15 Dose: 400 units Documented by: Vortioxetine (Trintellix) 2 ea PO QAM [facility] Stop: 08/03/19 08:59 Last Admin: 07/07/19 09:13 Dose: 2 ea Documented by: Mental Health & Subst Abuse Tx Psychiatrist Name of Psychiatrist: [facility] - Dr. Ramos Psychiatrist's Date of Appointment with Psychiatrist: 07/12/19 Time of Appointment with Psychiatrist: 8:00 a.m. Psychiatric Appointment Comment: [address], [place] [address] Therapist Name of Therapist: [employer] Darci Dowd Therapist's Date of Therapist Appointment: 07/17/19 Time of Therapist Appointment: 9:00 a.m. Therapy Appointment Comment: [address], [place] [address] Well Service Derrick Worker Name of Well Service Derrick Worker: Harshil Avila Phone Number for Well Service Derrick Worker: [phone] Case Management Appointment Comment: [id number], [place], [place] [address] Post Discharge Appointments Primary Care Physician Name Of Family Doctor: [facility] Date of Appointment with PCP: 07/19/19 Time of Appointment with PCP: 9:00 a.m. Provider Appointment Comment: [address], [place] [address] Partial or Psych Rehab Name of Partial or Psych Rehab: Psych Rehab - resume your normal schedule Other #1: Name of Aftercare Appointment: [facility] Phone Number of Aftercare Appointment: Mayda - Aftercare Appointment Comment: Resume routine schedule of every Wednesday at 9 a.m. Contact Information Discharge Discharge Address: [facility] [place] [address] CPT Code CPT Code 30500 (1) Sleep apnea Sleep apnea type: obstructive Qualified Code(s): G47.33 - Obstructive sleep apnea (adult) (pediatric) (2) Diabetes Diabetes mellitus complication status: without complication Diabetes mellitus [facility] insulin use: with intermediate accountant use Diabetes mellitus type: type 2 Qualified Code(s): E11.9 - Type 2 diabetes mellitus without complications; Z79.4 - half-way (current) use of insulin (3) Depression Active/Remission status: currently active Depression Type: major depressive disorder Major depression episode severity: severe Major depression recurrence: unspecified whether recurrent Psychotic features: with psychotic features Qualified Code(s): F32.3 - Major depressive disorder, single episode, severe with psychotic features (4) Hypertension Hypertension type: unspecified Qualified Code(s): I10 - Essential (primary) hypertension (5) Asthma Asthma complication type: uncomplicated Asthma persistence: intermittent Asthma severity: mild Qualified Code(s): J45.20 - Mild intermittent asthma, uncomplicated
[2019-07-07] MEDS: QUETIAPINE FUMARATE 25 MG TABLET PO SCH (13:55)
[2019-07-07] MEDS: LURASIDONE HCL 40 MG TAB PO SCH (17:14)
[2019-07-07] MEDS: BENZTROPINE MESYLATE 1 MG TAB PO SCH (21:34)
[2019-07-07] MEDS: VENLAFAXINE HCL XR 37.5 MG CAPXR PO SCH (21:35)
[2019-07-07] MEDS: ATORVASTATIN 40 MG TAB PO SCH (21:35)
[2019-07-07] MEDS: PRAZOSIN HCL 1 MG CAP PO SCH (21:36)
[2019-07-07] MEDS: ROPINIROLE HCL 1 MG TABLET PO SCH (21:36)
[2019-07-07] MEDS: QUETIAPINE FUMARATE 200 MG TAB PO SCH (21:37)
[2019-07-07] MEDS: INSULIN GLARGINE SOLOSTAR 100 UNITS/ML 3 ML PEN SC SCH (21:40)
[2019-07-07 23:45] VITALS: O2SAT 96
[2019-07-08] MEDS: LEVOTHYROXINE SODIUM 200 MCG TABLET PO SCH (08:54)
[2019-07-08] MEDS: FERROUS SULFATE 325 MG TAB PO SCH ×2 (08:55→17:13)
[2019-07-08] MEDS: SUCRALFATE 1 GM/10 ML UDC PO SCH ×3 (08:55→17:13)
[2019-07-08] MEDS: METOPROLOL TARTRATE 25 MG TAB PO SCH ×2 (08:55→21:39)
[2019-07-08] MEDS: MULTIVITAMIN TAB PO SCH (08:58)
[2019-07-08] MEDS: PREGABALIN 100 MG CAP PO SCH ×3 (08:58→21:39)
[2019-07-08] MEDS: CLOPIDOGREL BISULFATE 75 MG TAB PO SCH (08:59)
[2019-07-08] MEDS: PANTOprazole 40 MG TAB PO SCH (08:59)
[2019-07-08] MEDS: QUETIAPINE FUMARATE 25 MG TABLET PO SCH ×2 (08:59→13:54)
[2019-07-08] MEDS: VORTIOXETINE HYDROBROMIDE PO SCH (09:00)
[2019-07-08] MEDS: CYANOCOBALAMIN 500 MCG TABLET (VITAMIN B-12) PO SCH (09:01)
[2019-07-08] MEDS: CHOLECALCIFEROL (VITAMIN D) 400 UNITS TABLET PO SCH (09:01)
[2019-07-08] MEDS: clonazePAM 0.5 MG TAB PO SCH ×3 (09:03→21:40)
[2019-07-08] MEDS: INSULIN ASPART 100 UNITS/ML 3 ML PEN SC SCH ×4 (09:08→22:11)
[2019-07-08] MEDS: FLUTICASONE/SALMETEROL 250/50 (ADVAIR) 14 PUFF/1 INHALER INH SCH ×2 (09:14→21:44)
--- NOTE | 2019-07-08 11:53 | Psychiatric Progress Note ---
Date of Service July 08, 2019 Impression / Recommendations Impression Patient with history of treatment refractory depression which has been persistently worse since her mother's in 2016. Dependent and avoidant traits complicate her functional level. She relies heavily on her corrections caseworker and she has struggled with small tasks rather chronically at home such as keeping up with dishes or unpacking boxes. She requires assistance with her medication management at home as well. Secondary to declining mood she was being cross tapered from Effexor to Cymbalta as outpatient with abrupt decompensation resulting in medical presentation immediately prior to psychiatric admission here. Effexor has clearly been insufficiently effective and we are now cross tapering to Trintellix. Also reducing her dosage of lurasidone while titrating quetiapine to antipsychotic range, as quetiapine has historically been beneficial for sleep and anxiety as well. (1) Depression: 06/30 -The patient reports chronic depression dating back approximately 4 years without any substantial relief. -We will provide services to the patient on a locked unit with regular every 15 minute checks, and we will encourage participation in individual, group, activity, and milieu therapies. -The plan is to continue her current psychiatric medications. She will be seeing her outpatient psychiatrist, Dr. Ramos, over the weekend and he has told us that he has several thoughts about medication adjustments that he would like to make while the patient is safely confined in the hospital. -I have introduced the idea of ECT to the patient, and she has expressed interest in learning more about it. -The patient reports that she has chronic suicidal thoughts, but does not currently have any suicidal plan or intent. She notes that she did have suicid al intent approximately 30 years ago, but did not act on it and has never made an actual suicide attempt. 07/01 -It appears Effexor XR was started at only 150 mg since transfer to the unit but will defer re-titration in hopes of cross tapering to alternative antidepressant, specifically trintellix for alternative mechanism agent. She does not appear to be demonstrating evidence of noradrenergic withdrawal today however she has been on the Effexor for many years now and we will need to remain vigilant for potential need to slow down taper -Nursing has assisted with verifying coverage for Trintellix with outside pharmacy and it appears to have a $0 co-pay. Unfortunately it is nonformulary here at the hospital and will not be ready until Wednesday and will require transportation from a pharmacy. Initial plan would be to start the new antidepressant at 5 mg daily increasing by 5 mg every few days as we further taper the Effexor. -Auditory hallucinations are exacerbated above her baseline. I would like to re-simplify her antipsychotic regimen by tapering the Latuda and titrating the Seroquel. Presently she is on only 80 mg of Latuda which is 40 mg less than her outpatient dose and will plan to continue unchanged for now. if adjustment to antipsychotic needed for to discharge I would favor titration of seroquel. 07/02 -Affect is a little brighter today. She continues to do reasonably well on reduced Effexor so hopefully we will be able to continue to taper without too much trouble once Trintellix is available from the outside pharmacy for titration. We hope to have her sister or her corrections caseworker retrieve the prescription tomorrow. Order has been placed to start trintellix 5 mg by mouth every morning on 07/03/2019. I would suggest that be quickly titrated over the next few days while Effexor is weaned. - As above patient continues to experience passive suicidal ideation without active intent however I do perceive that she remains at an elevated risk above her chronic baseline risk and mood had clearly been downtrending prior to her acutely altered mental status reciprocating this admission. I strongly feel that continued psychiatric hospitalization is necessary at this time and patient was agreeable to rescind her 72 hour notice after discussion today. 07/03 - Anticipating Trintellix to be brought in by friend marco a. Will give 5mg one-time dose when available, then increase to 10mg qAM if tolerated - Will reduce Effexor to 75mg tomorrow morning, in anticipation of Trintellix being initiated this evening - Continue remainder of home medications as above, focus on antidepressant medication adjustments - Consider adjustments to antipsychotic medications as well, though this may be deferred until after discharge depending on her tolerance for medication changes - Continue to encourage development of healthy and effective coping strategies - Pt reporting ongoing SI 07/04 - Continue treatment plan as above - Trintellix at 10mg and Effexor at 75mg; continue cross-taper as tolerated - Continue to work with patient on other medication changes as tolerated 07/05 - Increase Trintellix to 20mg daily for tomorrow, and continue venlafaxine XR 75mg daily - can reduce further in a couple days. - Continue lurasidone 80 mg daily, quetiapine, and prazosin. Fasting labs checked 06/28/2019; glucose 200, hemoglobin A1c 9.9, FLP within normal limits. - Meeting with outpatient corrections caseworker today for discharge planning. 07/06 - Continue Trintellix 20mg; venlafaxine reduced to 37.5mg for this evening - Reducing lurasidone to 40mg qdd; titrating quetiapine to 50mg/50mg/400mg starting this evening - Reporting ongoing mood concerns, suicidality is chronic 07/07 - Quetiapine titrated to 75mg/75mg/400mg for today - continue lurasidone 40mg qdd, with ability to discontinue over weekend if tolerating changes - Continue Trintellix 20mg and venlafaxine 37.5mg (consider discontinuation during this admission to avoid additional medication confusion on discharge) - Pt denies auditory hallucinations last evening or thus far this morning - therefore no suicidal ideation today - Consider discharge for Wednesday, as patient will then have support for medication management through [facility] 07/08 --tolerating increase in Quteiapine, taper Lurasidone to 20 mg this pm then d/c. D/C Effexor. (2) Generalized anxiety disorder with panic attacks: 07/01 -Long history of severe anxiety -Interestingly when she appears more depressive her anxiety seems to isabella -Watch anxiety on reduced Lyrica as above -We will attempt to hold BuSpar to reduce risk for serotonin toxicity and minimize polypharmacy -Continue home dose Klonopin unchanged for now -Continue prazosin 5 mg at bedtime unchanged -Continue Seroquel 50 mg twice daily and 300 mg nightly which historically has been helpful for severe anxiety and insomnia. We will likely consider some further titration as we taper the Latuda as above however if she struggles to tolerate the antidepressant changes, we may defer this cross-taper to outpatient setting 07/02 - Anxiety appears mildly exacerbated in the last 24 hours, possibly associated with the changes yesterday. Attempting to find balance in effort to minimize [employer]ET [employer] suppression and risk for drug drug interactions while maintaining adequate anxiolysis 07/03 - Trintellix to be initiated when brought from retail pharmacy - Continue medication considerations as above 07/05 -Continue antidepressant cross-taper as above, and home dose of clonazepam. 07/07 - As above, quetiapine has been titrated to 75mg/75mg/400mg - titrations have historically proven beneficial for level of anxiety as well as management of psychotic symptoms (3) Change in mental status: 06/30 -Although the patient tells us that she is continuing to have certain deficits in her short-term memory, and while she struggled with immediate memory testing today, based upon the data available in the record the patient's mental status and, more particularly, her short and long-term memory appear to have been improving. Today, she is oriented to person, place, year, month, and situation. She struggles to recall the name of the president [place], but is successful in this regard eventually, where she had not been able to do this earlier in the hospital stay. She was not able to correctly guess the date within a tolerance of several days and, instead, said that she believed that we were in the "middle" of June, rather than at the end of the month. 07/01 -Appreciate neurology input. Consider possibility of underlying progressive cerebrovascular disease related neurocognitive disorder however that has not been readily apparent in the outpatient setting -No clear etiology identified for acutely altered mental status which occurred in setting of antidepressant cross-taper -We will attempt to reduce Lyrica to 100 mg 3 times daily which she has been taking for neuropathy prescribed by neurology for many years - consider gentle cogentin reduction as well (historically reductions have not been well tolerated) 07/02 -less cognitive slowing evident today 10 -Patient remains cognitively impaired, with poor memory of events of the last week and a half, and although she is oriented to self, place, year, and month, she does not know the day or date. 07/07 - Cognition appears to be improving; patient reports some lapses in memory (especially events from the medical floor), but remains alert and oriented (4) Diabetes: 06/30 -The patient is insulin-dependent. -We are continuing the diabetic regimen that was started on the medical floor. We have also requested a diabetic consult from the pharmacy. -The patient, despite her report of memory difficulties, seems quite clear about her diabetic medication regimen, and can correctly give the names and dosages of her diabetic medicines. -Fingerstick serum glucose level remeasured before meals and at bedtime. 07/07 - Continue management as above - Consult placed for reading teacher, now that patient is better able to participate and retain information - HgbA1c = 9.9 on medical floor; will schedule appointment with PCP for follow-up after discharge - Appreciate management assistance from glycemic pharmacy (5) Asthma: 06/30 -Patient describes having a "enlarged heart," and dyspnea on exertion. She also tells me that she has chronic asthma. -We will continue the bronchodilator medications that have been part of the patient's recent medication regimen. (6) Sleep apnea: 06/30 -Patient has obstructive sleep apnea and uses a CPAP machine. For that reason, she will require a medically necessary private room and one-to-one/direct view observation during the night while using her CPAP machine. (7) Hypertension: 06/30 -Patient takes several antihypertensive medications and these will be continued during her hospital stay. -Patient's vital signs, including blood pressure and pulse will be monitored daily. Inventory Assets Strengths: Motivated to treatment and recovery. Positive relationship with her outpatient providers. Supportive sister. Able to work part-time (within the confines of her disability). Needs: Resolution of depression. Resolution of suicidal thoughts. Resolution of cognitive impairment. Risk Factors Assessment Male: No : Yes Do You Have Access To A Gun?: No Health Problems: Yes Mental Health Diagnoses: Yes Substance Use Disorders: No Previous Attempt: No Previous Psychiatric Hospitalization: Yes Hopelessness: No Smoker: No Protective Factors Assessment Nondenominational Beliefs: No : No Responsible for Young Children: No Employed: Yes Stable Relationships: Yes (Patient reports that she has 2 friends, but does not see them.) Supportive Family: Yes (Her sister.) Good Rapport with Provider: Yes Absence of Any Risk Factors Above: No Interval History Identifying Information ADRY ONEAL is a 59-year-old F who currently lives in alone in a second floor apartment with her pet cat in [place], [place]. She has a long history of depression, as well as a history of multiple psychiatric hospitalizations. She was admitted to medicine because of an altered mental status, and transferred to psychiatry on 06/30/19 15:51 on a 201 voluntary agreement because of continued altered mental status and depression. Chief Complaint "I just get overwhelmed thinking about how I am going to do this all at home.". Review of Systems Sleep Information Total Hours of Sleep: 6.5 Sleep Comments: pt continue on 1:1 staff coverage. pt on q-15 minute checks Meal Information Percent Meal Consumed - Breakfast: 100 Percent Meal Consumed - Lunch: 100 Percent Meal Consumed - Dinner: 100 Subjective Subjective Patient was seen & assessed and interval progress reviewed with nursing and social work. No issues overnight, focussed on diabetic cat. Talks through how she spirals without structure of the unit. Tolerating med changes. Physical Exam Psychiatric The patient presented as alert and cooperative. The patient was casually dressed and groomed. Eye contact was fair. No psychomotor restlessness or agitation was noted. Speech was normal in rate, rhythm, and volume. Affect was mood congruent. The patients mood appeared anxious. Thought processes were clear, coherent and goal directed without evidence of loose associations or flight of ideas. Thought content/perception was reality based without delusions. The patient denied suicidal and homicidal ideation. The patient denied hallucinations and did not appear to be responding to internal stimuli. Cognition was grossly intact with orientation to person, place and time. Fund of Knowledge/Intelligence were consistent with level of education. Insight and Judgement were limited. Vital Signs (Past 24 Hours) Last Vital Signs Temp 36.3 C L 07/08/19 06:53 Pulse 93 H 07/08/19 06:51 Resp 15 07/08/19 06:51 BP 123/81 07/08/19 06:51 Pulse Ox 96 07/07/19 23:22 Results & Data Laboratory Results Laboratory Results - last 24 hr 07/07/19 07/07/19 07/07/19 12:59 17:07 21:24 POC Glucose 223 H 151 H 278 H 07/08/19 08:38 POC Glucose 220 H Current Inpatient Medications Current Inpatient Medications: Current Inpatient Medications Acetaminophen (Tylenol) 650 mg PO Q4H PRN PRN Reason: Headache or Minor Fever Stop: 07/30/19 16:10 Al Hydrox/Mg Hydrox/Simethicone (Maalox) 30 ml PO Q4H PRN PRN Reason: GI Upset Stop: 07/30/19 16:10 Albuterol (Ventolin Hfa) 1 - 2 puffs INH Q4H PRN PRN Reason: Shortness Of Breath Stop: 07/30/19 16:47 Atorvastatin Calcium (Lipitor) 80 mg PO HS [facility] Stop: 07/30/19 21:59 Last Admin: 07/07/19 21:35 Dose: 80 mg Documented by: Benztropine Mesylate (Cogentin) 1 mg PO HS [facility] Stop: 07/31/19 21:59 Last Admin: 07/07/19 21:34 Dose: 1 mg Documented by: Bismuth Subsalicylate (Kaopectate) 15 ml PO PRN PRN PRN Reason: Loose Stool Stop: 07/30/19 16:10 Clonazepam (Klonopin) 1 mg PO HS [facility] Stop: 07/30/19 21:59 Last Admin: 07/07/19 21:35 Dose: 1 mg Documented by: Clonazepam (Klonopin) 0.25 mg PO 0900,1400 [facility] Stop: 07/31/19 08:59 Last Admin: 07/08/19 09:03 Dose: 0.25 mg Documented by: Clopidogrel Bisulfate (Plavix) 75 mg PO QAM [facility] Stop: 07/31/19 08:59 Last Admin: 07/08/19 08:59 Dose: 75 mg Documented by: Cyanocobalamin (Vitamin B-12) 2,000 mcg PO QAM [facility] Stop: 07/31/19 08:59 Last Admin: 07/08/19 09:01 Dose: 2,000 mcg Documented by: Ferrous Sulfate (Feosol) 325 mg PO BIDM [facility] Stop: 07/31/19 08:59 Last Admin: 07/08/19 08:55 Dose: 325 mg Documented by: Glucagon (Glucagen) 1 mg SQ UD PRN; Protocol PRN Reason: Hypoglycemia Protocol Stop: 07/30/19 17:44 Glucagon (Glucagen) 1 mg SQ PRN PRN PRN Reason: Hypoglycemia Treatment Stop: 07/30/19 17:12 Glucose (Glucose 40%) 15 - 30 gm PO UD PRN; Protocol PRN Reason: Hypoglycemia Protocol Stop: 07/30/19 17:44 Glucose (Dex4 Glucose) 4 - 8 tabs PO UD PRN; Protocol PRN Reason: Hypoglycemia Protocol Stop: 07/30/19 17:44 Glucose (Dex4 Glucose) 4 - 8 tabs PO QID PRN PRN Reason: Hypoglycemia Treatment Stop: 07/30/19 17:12 Insulin Aspart (Novolog Flexpen) 0 units SC ACHS [facility] Stop: 07/30/19 21:59 Last Admin: 07/08/19 09:08 Dose: 21 units Documented by: Insulin Glargine (Lantus Solostar Pen) 75 units SC [facility] Stop: 08/05/19 21:59 Last Admin: 07/07/19 21:40 Dose: 75 units Documented by: Levothyroxine Sodium (Synthroid) 200 mcg PO DAILYBB [facility] Stop: 07/31/19 07:59 Last Admin: 07/08/19 08:54 Dose: 200 mcg Documented by: Lurasidone HCl (Latuda) 20 mg PO QDD [facility] Stop: 07/08/19 12:01 Metoprolol Tartrate (Lopressor) 12.5 mg PO BID [facility] Stop: 07/30/19 20:59 Last Admin: 07/08/19 08:55 Dose: 12.5 mg Documented by: Miscellaneous (Carbohydrates For Hypoglycemia) 15 - 30 gm PO UD PRN PRN Reason: Hypoglycemia Treatment Stop: 07/30/19 17:44 Miscellaneous Information (Consult Glycemic Management Pharmacy) 1 ea N/A UD PRN PRN Reason: Consult Stop: 07/30/19 17:26 [facility]ivit[facility]amin Tab) [facility] Stop: 07/31/19 08:59 Last Admin: 07/08/19 08:58 Dose: 1 tab Documented by: Pantoprazole Sodium (Protonix) 40 mg PO QAM [facility] Stop: 07/31/19 08:59 Last Admin: 07/08/19 08:59 Dose: 40 mg Documented by: Polyethylene Glycol (Miralax Powder Packet) 17 gm PO DAILY PRN PRN Reason: Constipation Stop: 07/30/19 16:47 Prazosin HCl (Prazosin Hcl) 5 mg PO [facility] Stop: 07/30/19 21:59 Last Admin: 07/07/19 21:36 Dose: 5 mg Documented by: Pregabalin (Lyrica) 100 mg PO TID [facility] Stop: 07/31/19 20:59 Last Admin: 07/08/19 08:58 Dose: 100 mg Documented by: Quetiapine Fumarate (Seroquel) 400 mg PO [facility] Stop: 08/05/19 21:59 Last Admin: 07/07/19 21:37 Dose: 400 mg Documented by: Quetiapine Fumarate (Seroquel) 75 mg PO DAILY@0900,1400 [facility] Stop: 08/06/19 13:59 Last Admin: 07/08/19 08:59 Dose: 75 mg Documented by: Ropinirole HCl (Requip) 1 mg PO HS [facility] Stop: 07/30/19 21:59 Last Admin: 07/07/19 21:36 Dose: 1 mg Documented by: Fluticasone/Salmeterol (Advair Diskus 250/50) 1 puffs INH BID [facility] Stop: 07/30/19 20:59 Last Admin: 07/08/19 09:14 Dose: 1 puffs Documented by: Sodium Chloride (Josephine Nasal) 1 - 2 sprays NA PRN PRN PRN Reason: Nasal Dryness/Congestion Stop: 07/30/19 16:10 Sucralfate (Carafate) 1 gm PO TIDM [facility] Stop: 08/04/19 12:29 Last Admin: 07/08/19 08:55 Dose: 1 gm Documented by: Vitamin D (Vitamin D3) 400 units PO QAM [facility] Stop: 07/31/19 08:59 Last Admin: 07/08/19 09:01 Dose: 400 units Documented by: Vortioxetine (Trintellix) 2 ea PO QAM [facility] Stop: 08/03/19 08:59 Last Admin: 07/08/19 09:00 Dose: 2 ea Documented by: Mental Health & Subst Abuse Tx Psychiatrist Name of Psychiatrist: [facility] Darci Ramos Psychiatrist's Date of Appointment with Psychiatrist: 07/12/19 Time of Appointment with Psychiatrist: 8:00 a.m. Psychiatric Appointment Comment: [address], [place] [address] Therapist Name of Therapist: [facility] Darci Dowd Therapist's Date of Therapist Appointment: 07/17/19 Time of Therapist Appointment: 9:00 a.m. Therapy Appointment Comment: [address], [place] [address] [employer] Name of Firer Marine: Harshil Avila Phone Number for Firer Marine: [phone] Date of Appointment with Firer Marine: 07/14/19 Time of Appointment with Firer Marine: 1:00 p.m. Case Management Appointment Comment: Service Coordination Meeting at Psych Rehab Post Discharge Appointments Primary Care Physician Name Of Family Doctor: [facility] Date of Appointment with PCP: 07/19/19 Time of Appointment with PCP: 9:00 a.m. Provider Appointment Comment: [place] [address] Partial or Psych Rehab Name of Partial or Psych Rehab: Psych Rehab - resume your normal schedule Contact Information Discharge Discharge Address: [address], [place] [id number] CPT Code CPT Code 73742 (1) Depression Depression Type: major depressive disorder Major depression recurrence: unspecified whether recurrent Active/Remission status: currently active Major depression episode severity: severe Psychotic features: with psychotic features Qualified Code(s): F32.3 - Major depressive disorder, single episode, severe with psychotic features (2) Diabetes Diabetes mellitus complication status: without complication Diabetes mellitus longterm insulin use: with intermission coordinator use Diabetes mellitus type: type 2 Qualified Code(s): E11.9 - Type 2 diabetes mellitus without complications; Z79.4 - assisted (current) use of insulin (3) Asthma Asthma severity: mild Asthma persistence: intermittent Asthma complication type: uncomplicated Qualified Code(s): J45.20 - Mild intermittent asthma, uncomplicated (4) Sleep apnea Sleep apnea type: obstructive Qualified Code(s): G47.33 - Obstructive sleep apnea (adult) (pediatric) (5) Hypertension Hypertension type: unspecified Qualified Code(s): I10 - Essential (primary) hypertension
[2019-07-08] MEDS ORDERED: LURASIDONE HCL 40 MG TAB PO SCH (12:00)
[2019-07-08] MEDS: BENZTROPINE MESYLATE 1 MG TAB PO SCH (21:40)
[2019-07-08] MEDS: ATORVASTATIN 40 MG TAB PO SCH (21:41)
[2019-07-08] MEDS: PRAZOSIN HCL 1 MG CAP PO SCH (21:42)
[2019-07-08] MEDS: ROPINIROLE HCL 1 MG TABLET PO SCH (21:43)
[2019-07-08] MEDS: QUETIAPINE FUMARATE 200 MG TAB PO SCH (21:43)
[2019-07-08] MEDS: INSULIN GLARGINE SOLOSTAR 100 UNITS/ML 3 ML PEN SC SCH (22:08)
[2019-07-09] MEDS: SUCRALFATE 1 GM/10 ML UDC PO SCH ×3 (08:52→17:04)
[2019-07-09] MEDS: FLUTICASONE/SALMETEROL 250/50 (ADVAIR) 14 PUFF/1 INHALER INH SCH ×2 (08:52→20:56)
[2019-07-09] MEDS: FERROUS SULFATE 325 MG TAB PO SCH ×2 (08:54→17:04)
[2019-07-09] MEDS: LEVOTHYROXINE SODIUM 200 MCG TABLET PO SCH (08:54)
[2019-07-09] MEDS: CYANOCOBALAMIN 500 MCG TABLET (VITAMIN B-12) PO SCH (08:55)
[2019-07-09] MEDS: clonazePAM 0.5 MG TAB PO SCH ×3 (08:55→21:01)
[2019-07-09] MEDS: METOPROLOL TARTRATE 25 MG TAB PO SCH ×2 (08:56→20:57)
[2019-07-09] MEDS: PANTOprazole 40 MG TAB PO SCH (08:58)
[2019-07-09] MEDS: PREGABALIN 100 MG CAP PO SCH ×3 (08:58→21:00)
[2019-07-09] MEDS: MULTIVITAMIN TAB PO SCH (08:58)
[2019-07-09] MEDS: CLOPIDOGREL BISULFATE 75 MG TAB PO SCH (08:58)
[2019-07-09] MEDS: CHOLECALCIFEROL (VITAMIN D) 400 UNITS TABLET PO SCH (08:59)
[2019-07-09] MEDS: VORTIOXETINE HYDROBROMIDE PO SCH (08:59)
[2019-07-09] MEDS: QUETIAPINE FUMARATE 25 MG TABLET PO SCH ×2 (08:59→14:16)
[2019-07-09] MEDS: INSULIN ASPART 100 UNITS/ML 3 ML PEN SC SCH ×4 (09:02→20:52)
--- NOTE | 2019-07-09 09:41 | Pharmacy Report ---
PHA: Glycemic Control AP - Date of Service July 09, 2019 - Assessment & Plan The patient is currently receiving ~155 units of insulin per day. BSGs ranging 112 - 220 mg/dl over the past 24hrs. * Basal insulin: Lantus 75 units every 24 hours given at bedtime * Correctional Insulin: Novolog Correction per scale ACHS Goal Range: Low 110 mg/dL - High 140 mg/dL Correction Factor: 10 mg/dL/unit * Prandial insulin: Per carb ratio of 1 unit per 2.5 grams CHO consumed BSGs continue to improve, no changes needed to inpatient regimen at this time. Pharmacy will continue to monitor patient daily and write orders per [facility] inpatient glycemic control protocol. Thanks. * Please note that the plan above was derived based on current level of insulin resistance and hospital stress. These recommendations are appropriate for inpatient admission only. Plan of care upon discharge will need to be reassessed to avoid potential outpatient hypo/hyperglycemia.
--- NOTE | 2019-07-09 11:17 | Psychiatric Progress Note ---
Date of Service July 09, 2019 Impression / Recommendations Impression anxiety increased in anticipation of discharge (1) Depression: 06/30 -The patient reports chronic depression dating back approximately 4 years without any substantial relief. -We will provide services to the patient on a locked unit with regular every 15 minute checks, and we will encourage participation in individual, group, activity, and milieu therapies. -The plan is to continue her current psychiatric medications. She will be seeing her outpatient psychiatrist, Dr. Ramos, over the weekend and he has told us that he has several thoughts about medication adjustments that he would like to make while the patient is safely confined in the hospital. -I have introduced the idea of ECT to the patient, and she has expressed interest in learning more about it. -The patient reports that she has chronic suicidal thoughts, but does not currently have any suicidal plan or intent. She notes that she did have suicidal intent approximately 30 years ago, but did not act on it and has never made an actual suicide attempt. 07/01 -It appears Effexor XR was started at only 150 mg since transfer to the unit but will defer re-titration in hopes of cross tapering to alternative antidepressant, specifically trintellix for alternative mechanism agent. She does not appear to be demonstrating evidence of noradrenergic withdrawal today however she has been on the Effexor for many years now and we will need to remain vigilant for potential need to slow down taper -Nursing has assisted with verifying coverage for Trintellix with outside pharmacy and it appears to have a $0 co-pay. Unfortunately it is nonformulary here at the hospital and will not be ready until Wednesday and will require transportation from a pharmacy. Initial plan would be to start the new antidepressant at 5 mg daily increasing by 5 mg every few days as we further taper the Effexor. -Auditory hallucinations are exacerbated above her baseline. I would like to re-simplify her antipsychotic regimen by tapering the Latuda and titrating the Seroquel. Presently she is on only 80 mg of Latuda which is 40 mg less than her outpatient dose and will plan to continue unchanged for now. if adjustment to antipsychotic needed for to discharge I would favor titration of seroquel. 07/02 -Affect is a little brighter today. She continues to do reasonably well on reduced Effexor so hopefully we will be able to continue to taper without too much trouble once Trintellix is available from the outside pharmacy for titration. We hope to have her sister or her heel caser retrieve the pres ription tomorrow. Order has been placed to start trintellix 5 mg by mouth every morning on 07/03/2019. I would suggest that be quickly titrated over the next few days while Effexor is weaned. - As above patient continues to experience passive suicidal ideation without active intent however I do perceive that she remains at an elevated risk above her chronic baseline risk and mood had clearly been downtrending prior to her acutely altered mental status reciprocating this admission. I strongly feel that continued psychiatric hospitalization is necessary at this time and patient was agreeable to rescind her 72 hour notice after discussion today. 07/03 - Anticipating Trintellix to be brought in by friend marco a. Will give 5mg one-time dose when available, then increase to 10mg qAM if tolerated - Will reduce Effexor to 75mg tomorrow morning, in anticipation of Trintellix being initiated this evening - Continue remainder of home medications as above, focus on antidepressant medication adjustments - Consider adjustments to antipsychotic medications as well, though this may be deferred until after discharge depending on her tolerance for medication changes - Continue to encourage development of healthy and effective coping strategies - Pt reporting ongoing SI 07/04 - Continue treatment plan as above - Trintellix at 10mg and Effexor at 75mg; continue cross-taper as tolerated - Continue to work with patient on other medication changes as tolerated 07/05 - Increase Trintellix to 20mg daily for tomorrow, and continue venlafaxine XR 75mg daily - can reduce further in a couple days. - Continue lurasidone 80 mg daily, quetiapine, and prazosin. Fasting labs checked 06/28/2019; glucose 200, hemoglobin A1c 9.9, FLP within normal limits. - Meeting with outpatient heel caser today for discharge planning. 07/06 - Continue Trintellix 20mg; venlafaxine reduced to 37.5mg for this evening - Reducing lurasidone to 40mg qdd; titrating quetiapine to 50mg/50mg/400mg starting this evening - Reporting ongoing mood concerns, suicidality is chronic 07/07 - Quetiapine titrated to 75mg/75mg/400mg for today - continue lurasidone 40mg qdd, with ability to discontinue over weekend if tolerating changes - Continue Trintellix 20mg and venlafaxine 37.5mg (consider discontinuation during this admission to avoid additional medication confusion on discharge) - Pt denies auditory hallucinations last evening or thus far this morning - therefore no suicidal ideation today - Consider discharge for Wednesday, as patient will then have support for medication management through [facility] 07/08 --tolerating increase in Quteiapine, taper Lurasidone to 20 mg this pm then d/c. D/C Effexor. (2) Generalized anxiety disorder with panic attacks: 07/01 -Long history of severe anxiety -Interestingly when she appears more depressive her anxiety seems to isabella -Watch anxiety on reduced Lyrica as above -We will attempt to hold BuSpar to reduce risk for serotonin toxicity and minimize polypharmacy -Continue home dose Klonopin unchanged for now -Continue prazosin 5 mg at bedtime unchanged -Continue Seroquel 50 mg twice daily and 300 mg nightly which historically has been helpful for severe anxiety and insomnia. We will likely consider some further titration as we taper the Latuda as above however if she struggles to tolerate the antidepressant changes, we may defer this cross-taper to outpatient setting 07/02 - Anxiety appears mildly exacerbated in the last 24 hours, possibly associated with the changes yesterday. Attempting to find balance in effort to minimize SEED SORTER suppression and risk for drug drug interactions while maintaining adequate anxiolysis 07/03 - Trintellix to be initiated when brought from retail pharmacy - Continue medication considerations as above 07/05 -Continue antidepressant cross-taper as above, and home dose of clonazepam. 07/07 - As above, quetiapine has been titrated to 75mg/75mg/400mg - titrations have historically proven beneficial for level of anxiety as well as management of psychotic symptoms (3) Change in mental status: 06/30 -Although the patient tells us that she is continuing to have certain deficits in her short-term memory, and while she struggled with immediate memory testing today, based upon the data available in the record the patient's mental status and, more particularly, her short and long-term memory appear to have been improving. Today, she is oriented to person, place, year, month, and situation. She struggles to recall the name of the information services vice president, but is successful in this regard eventually, where she had not been able to do this earlier in the hospital stay. She was not able to correctly guess the date within a tolerance of several days and, instead, said that she believed that we were in the "middle" of June, rather than at the end of the month. 07/01 -Appreciate neurology input. Consider possibility of underlying progressive cerebrovascular disease related neurocognitive disorder however that has not been readily apparent in the outpatient setting -No clear etiology identified for acutely altered mental status which occurred in setting of antidepressant cross-taper -We will attempt to reduce Lyrica to 100 mg 3 times daily which she has been taking for neuropathy prescribed by neurology for many years - consider gentle cogentin reduction as well (historically reductions have not been well tolerated) 07/02 -less cognitive slowing evident today 07/05 -Patient remains cognitively impaired, with poor memory of events of the last week and a half, and although she is oriented to self, place, year, and month, she does not know the day or date. 07/07 - Cognition appears to be improving; patient reports some lapses in memory (especially events from the medical floor), but remains alert and oriented (4) Diabetes: 06/30 -The patient is insulin-dependent. -We are continuing the diabetic regimen that was started on the medical floor. We have also requested a diabetic consult from the pharmacy. -The patient, despite her report of memory difficulties, seems quite clear about her diabetic medication regimen, and can correctly give the names and dosages of her diabetic medicines. -Fingerstick serum glucose level remeasured before meals and at bedtime. 07/07 - Continue management as above - Consult placed for breastfeeding educator, now that patient is better able to participate and retain information - HgbA1c = 9.9 on medical floor; will schedule appointment with PCP for follow-up after discharge - Appreciate management assistance from glycemic pharmacy (5) Asthma: 06/30 -Patient describes having a "enlarged heart," and dyspnea on exertion. She also tells me that she has chronic asthma. -We will continue the bronchodilator medications that have been part of the patient's recent medication regimen. (6) Sleep apnea: 06/30 -Patient has obstructive sleep apnea and uses a CPAP machine. For that reason, she will require a medically necessary private room and one-to-one/direct view observation during the night while using her CPAP machine. (7) Hypertension: 06/30 -Patient takes several antihypertensive medications and these will be continued during her hospital stay. -Patient's vital signs, including blood pressure and pulse will be monitored daily. Inventory Assets Strengths: Motivated to treatment and recovery. Positive relationship with her outpatient providers. Supportive sister. Able to work part-time (within the confines of her disability). Needs: Resolution of depression. Resolution of suicidal thoughts. Resolution of cognitive impairment. Risk Factors Assessment Male: No : Yes Do You Have Access To A Gun?: No Health Problems: Yes Mental Health Diagnoses: Yes Substance Use Disorders: No Previous Attempt: No Previous Psychiatric Hospitalization: Yes Hopelessness: No Smoker: No Protective Factors Assessment Holiness Beliefs: No : No Responsible for Young Children: No Employed: Yes Stable Relationships: Yes (Patient reports that she has 2 friends, but does not see them.) Supportive Family: Yes (Her sister.) Good Rapport with Provider: Yes Absence of Any Risk Factors Above: No Interval History Identifying Information ADRY ONEAL is a 59-year-old F who currently lives in alone in a second floor apartment with her pet cat in [place], [place]. She has a long history of depression, as well as a history of multiple psychiatric hospitalizations. She was admitted to medicine because of an altered mental status, and transferred to psychiatry on 06/30/19 15:51 on a 201 voluntary agreement because of continued altered mental status and depression. Chief Complaint "I'm still worried". Review of Systems Sleep Information Total Hours of Sleep: 6.25 Sleep Comments: pt continue on 1:1 staff coverage. pt on q-15 minute checks Meal Information Percent Meal Consumed - Breakfast: 100 Percent Meal Consumed - Lunch: 100 Percent Meal Consumed - Dinner: 100 Subjective Subjective Patient was seen & assessed and interval progress reviewed with nursing and social work. Discussed her need for a daily schedule. Reviewed med list. Tolerating med changes. Physical Exam Mental Examination The patient presented as alert and cooperative. The patient was casually dressed and groomed. Eye contact was fair. Restless legs but no akathisia. Speech was normal in rate, rhythm, and volume. Affect and mood were anxious. Thought processes were clear, coherent. Thought content/perception was reality based without delusions. The patient denied suicidal and homicidal ideation. The patient denied hallucinations and did not appear to be responding to internal stimuli. Cognition was grossly intact with orientation to person, place and time. Vital Signs (Past 24 Hours) Last Vital Signs Temp 36.6 C 07/09/19 06:00 Pulse 96 H 07/09/19 06:48 Resp 18 07/09/19 06:00 BP 117/79 07/09/19 06:48 Pulse Ox 96 07/08/19 23:18 Results & Data Laboratory Results Laboratory Results - last 24 hr 07/08/19 07/08/19 07/08/19 11:58 17:05 21:35 POC Glucose 161 H 112 H 131 H 07/09/19 08:41 POC Glucose 158 H Current Inpatient Medications Current Inpatient Medications: Current Inpatient Medications Acetaminophen (Tylenol) 650 mg PO Q4H PRN PRN Reason: Headache or Minor Fever Stop: 07/30/19 16:10 Al Hydrox/Mg Hydrox/Simethicone (Maalox) 30 ml PO Q4H PRN PRN Reason: GI Upset Stop: 07/30/19 16:10 Albuterol (Ventolin Hfa) 1 - 2 puffs INH Q4H PRN PRN Reason: Shortness Of Breath Stop: 07/30/19 16:47 Atorvastatin Calcium (Lipitor) 80 mg PO [facility] Stop: 07/30/19 21:59 Last Admin: 07/08/19 21:41 Dose: 80 mg Documented by: Benztropine Mesylate (Cogentin) 1 mg PO [facility] Stop: 07/31/19 21:59 Last Admin: 07/08/19 21:40 Dose: 1 mg Documented by: Bismuth Subsalicylate (Kaopectate) 15 ml PO PRN PRN PRN Reason: Loose Stool Stop: 07/30/19 16:10 Clonazepam (Klonopin) 1 mg PO [facility] Stop: 07/30/19 21:59 Last Admin: 07/08/19 21:40 Dose: 1 mg Documented by: Clonazepam (Klonopin) 0.25 mg PO 0900,1400 [facility] Stop: 07/31/19 08:59 Last Admin: 07/09/19 08:55 Dose: 0.25 mg Documented by: [facility]opidogrel [facility] (Plavix) [facility]: 07/31/19 08:59 Last Admin: 07/09/19 08:58 Dose: 75 mg Documented by: Cyanocobalamin (Vitamin B-12) 2,000 mcg [facility] [place] Stop: 07/31/19 08:59 Last Admin: 07/09/19 08:55 Dose: 2,000 mcg Documented by: Ferrous Sulfate (Feosol) 325 mg PO BIDM [facility] Stop: 07/31/19 08:59 Last Admin: 07/09/19 08:54 Dose: 325 mg Documented by: Glucagon (Glucagen) 1 mg SQ UD PRN; Protocol PRN Reason: Hypoglycemia Protocol Stop: 07/30/19 17:44 Glucagon (Glucagen) 1 mg SQ PRN PRN PRN Reason: Hypoglycemia Treatment Stop: 07/30/19 17:12 Glucose (Glucose 40%) 15 - 30 gm PO UD PRN; Protocol PRN Reason: Hypoglycemia Protocol Stop: 07/30/19 17:44 Glucose (Dex4 Glucose) 4 - 8 tabs PO UD PRN; Protocol PRN Reason: Hypoglycemia Protocol Stop: 07/30/19 17:44 Glucose (Dex4 Glucose) 4 - 8 tabs PO QID PRN PRN Reason: Hypoglycemia Treatment Stop: 07/30/19 17:12 Insulin Aspart (Novolog Flexpen) 0 units SC ACHS [facility] Stop: 07/30/19 21:59 Last Admin: 07/09/19 09:02 Dose: 18 units Documented by: Insulin Glargine (Lantus Solostar Pen) 75 units SC [facility] Stop: 08/05/19 21:59 Last Admin: 07/08/19 22:08 Dose: 75 units Documented by: Levothyroxine Sodium (Synthroid) 200 mcg PO DAILYBB [facility] Stop: 07/31/19 07:59 Last Admin: 07/09/19 08:54 Dose: 200 mcg Documented by: Metoprolol Tartrate (Lopressor) 12.5 mg PO BID [facility] Stop: 07/30/19 20:59 Last Admin: 07/09/19 08:56 Dose: 12.5 mg Documented by: Miscellaneous (Carbohydrates For Hypoglycemia) 15 - 30 gm PO UD PRN PRN Reason: Hypoglycemia Treatment Stop: 07/30/19 17:44 Miscellaneous Information (Consult Glycemic Management Pharmacy) 1 ea N/A UD PRN PRN Reason: Consult Stop: 07/30/19 17:26 Multivitamins (Multivitamin Tab) 1 tab PO QAM [facility] Stop: 07/31/19 08:59 Last Admin: 07/09/19 08:58 Dose: 1 tab Documented by: Pantoprazole Sodium (Protonix) 40 mg PO QAM [facility] Stop: 07/31/19 08:59 Last Admin: 07/09/19 08:58 Dose: 40 mg Documented by: Polyethylene Glycol (Miralax Powder Packet) 17 gm PO DAILY PRN PRN Reason: Constipation Stop: 07/30/19 16:47 Prazosin HCl (Prazosin Hcl) 5 mg PO [facility] Stop: 07/30/19 21:59 Last Admin: 07/08/19 21:42 Dose: 5 mg Documented by: Pregabalin (Lyrica) 100 mg PO TID [facility] Stop: 07/31/19 20:59 Last Admin: 07/09/19 08:58 Dose: 100 mg Documented by: Quetiapine Fumarate (Seroquel) 400 mg PO [facility] Stop: 08/05/19 21:59 Last Admin: 07/08/19 21:43 Dose: 400 mg Documented by: Quetiapine Fumarate (Seroquel) 75 mg PO DAILY@0900,1400 [facility] Stop: 08/06/19 13:59 Last Admin: 07/09/19 08:59 Dose: 75 mg Documented by: Ropinirole HCl (Requip) 1 mg PO [facility] Stop: 07/30/19 21:59 Last Admin: 07/08/19 21:43 Dose: 1 mg Documented by: Fluticasone/Salmeterol (Advair Diskus 250/50) 1 puffs INH BID [facility] Stop: 07/30/19 20:59 Last Admin: 07/09/19 08:52 Dose: 1 puffs Documented by: Sodium Chloride (Green Nasal) 1 - 2 sprays NA PRN PRN PRN Reason: Nasal Dryness/Congestion Stop: 07/30/19 16:10 Sucralfate (Carafate) 1 gm PO TIDM [facility] Stop: 08/04/19 12:29 Last Admin: 07/09/19 08:52 Dose: 1 gm Documented by: Vitamin D (Vitamin D3) 400 units PO QAM [facility] Stop: 07/31/19 08:59 Last Admin: 07/09/19 08:59 Dose: 400 units Documented by: Vortioxetine ([facility]intellix) [facility] [place]: 08/03/19 08:59 Last Admin: 07/09/19 08:59 Dose: 2 ea Documented by: Mental Health & Subst Abuse Tx Psychiatrist Name of Psychiatrist: Arcadio Liu - Dr. Ramos Psychiatrist's Date of Appointment with Psychiatrist: 07/12/19 Time of Appointment with Psychiatrist: 8:00 a.m. Psychiatric Appointment Comment: [address], [place] [address] Therapist Name of Therapist: DaytonShad Dowd Therapist's Date of Therapist Appointment: 07/17/19 Time of Therapist Appointment: 9:00 a.m. Therapy Appointment Comment: [address], [place] [address] Air Pumper Name of Air Pumper: Harshil Avila Phone Number for Air Pumper: [phone] Date of Appointment with Air Pumper: 07/14/19 Time of Appointment with Air Pumper: 1:00 p.m. Case Management Appointment Comment: Service Coordination Meeting at Psych Rehab Post Discharge Appointments Primary Care Physician Name Of Family Doctor: CI[facility] Date of Appointment with PCP: 07/19/19 Time of Appointment with PCP: 9:00 a.m. Provider Appointment Comment: [address], [place] [address] Partial or Psych Rehab Name of Partial or Psych Rehab: Psych Rehab - resume your normal schedule Contact Information Discharge Discharge Address: [facility] [address], [place] [address] CPT Code CPT Code 79494 (1) Depression Depression Type: major depressive disorder Major depression recurrence: unspecified whether recurrent Active/Remission status: currently active Major depression episode severity: severe Psychotic features: with psychotic features Qualified Code(s): F32.3 - Major depressive disorder, single episode, severe with psychotic features (2) Diabetes Diabetes mellitus complication status: without complication Diabetes mellitus half-way insulin use: with terminal worker use Diabetes mellitus type: type 2 Qualified Code(s): E11.9 - Type 2 diabetes mellitus without complications; Z79.4 - continuous churn buttermaker (current) use of insulin (3) Asthma Asthma severity: mild Asthma persistence: intermittent Asthma complication type: uncomplicated Qualified Code(s): J45.20 - Mild intermittent asthma, uncomplicated (4) Sleep apnea Sleep apnea type: obstructive Qualified Code(s): G47.33 - Obstructive sleep apnea (adult) (pediatric) (5) Hypertension Hypertension type: unspecified Qualified Code(s): I10 - Essential (primary) hypertension
[2019-07-09] MEDS: INSULIN GLARGINE SOLOSTAR 100 UNITS/ML 3 ML PEN SC SCH (20:53)
[2019-07-09] MEDS: BENZTROPINE MESYLATE 1 MG TAB PO SCH (20:58)
[2019-07-09] MEDS: ATORVASTATIN 40 MG TAB PO SCH (20:59)
[2019-07-09] MEDS: QUETIAPINE FUMARATE 200 MG TAB PO SCH (20:59)
[2019-07-09] MEDS: PRAZOSIN HCL 1 MG CAP PO SCH (20:59)
[2019-07-09] MEDS: ROPINIROLE HCL 1 MG TABLET PO SCH (20:59)
[2019-07-10 06:47] VITALS: TEMP 97.7
[2019-07-10] MEDS: SUCRALFATE 1 GM/10 ML UDC PO SCH ×2 (08:53→12:57)
[2019-07-10] MEDS: FLUTICASONE/SALMETEROL 250/50 (ADVAIR) 14 PUFF/1 INHALER INH SCH (08:53)
[2019-07-10] MEDS: LEVOTHYROXINE SODIUM 200 MCG TABLET PO SCH (08:53)
[2019-07-10] MEDS: FERROUS SULFATE 325 MG TAB PO SCH (08:54)
[2019-07-10] MEDS: METOPROLOL TARTRATE 25 MG TAB PO SCH (08:55)
[2019-07-10] MEDS: PANTOprazole 40 MG TAB PO SCH (08:55)
[2019-07-10] MEDS: CLOPIDOGREL BISULFATE 75 MG TAB PO SCH (08:55)
[2019-07-10] MEDS: MULTIVITAMIN TAB PO SCH (08:55)
[2019-07-10] MEDS: QUETIAPINE FUMARATE 25 MG TABLET PO SCH (08:55)
[2019-07-10] MEDS: VORTIOXETINE HYDROBROMIDE PO SCH (08:56)
[2019-07-10] MEDS: CYANOCOBALAMIN 500 MCG TABLET (VITAMIN B-12) PO SCH (08:56)
[2019-07-10] MEDS: CHOLECALCIFEROL (VITAMIN D) 400 UNITS TABLET PO SCH (08:56)
[2019-07-10] MEDS: PREGABALIN 100 MG CAP PO SCH (08:58)
[2019-07-10] MEDS: clonazePAM 0.5 MG TAB PO SCH (08:59)
[2019-07-10] MEDS: INSULIN ASPART 100 UNITS/ML 3 ML PEN SC SCH ×2 (09:40→13:19)
--- NOTE | 2019-07-10 10:52 | Discharge Summary ---
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 have not been well tolerated) 07/02 -less cognitive slowing evident today 07/05 -Patient remains cognitively impaired, with poor memory of events of the last week and a half, and although she is oriented to self, place, year, and month, she does not know the day or date. 07/07 - Cognition appears to be improving; patient reports some lapses in memory (especially events from the medical floor), but remains alert and oriented (4) Diabetes: 06/30 -The patient is insulin-dependent. -We are continuing the diabetic regimen that was started on the medical floor. We have also requested a diabetic consult from the pharmacy. -The patient, despite her report of memory difficulties, seems quite clear about her diabetic medication regimen, and can correctly give the names and dosages of her diabetic medicines. -Fingerstick serum glucose level remeasured before meals and at bedtime. 07/07 - Continue management as above - Consult placed for kiln charger, now that patient is better able to participate and retain information - HgbA1c = 9.9 on medical floor; will schedule appointment with PCP for follow-up after discharge - Appreciate management assistance from glycemic pharmacy (5) Asthma: 06/30 -Patient describes having a "enlarged heart," and dyspnea on exertion. She also tells me that she has chronic asthma. -We will continue the bronchodilator medications that have been part of the patient's recent medication regimen. (6) Sleep apnea: 06/30 -Patient has obstructive sleep apnea and uses a CPAP machine. For that reason, she will require a medically necessary private room and one-to-one/direct view observation during the night while using her CPAP machine. (7) Hypertension: 06/30 -Patient takes several antihypertensive medications and these will be continued during her hospital stay. -Patient's vital signs, including blood pressure and pulse will be monitored daily. Mental Health & Subst Abuse Tx Psychiatrist Name of Psychiatrist: [facility] - Dr. Ramos Psychiatrist's Date of Appointment with Psychiatrist: 07/12/19 Time of Appointment with Psychiatrist: 8:00 a.m. Psychiatric Appointment Comment: [address], [place] [address] Psychiatrist Release of Information: Obtained, Reviewed and Signed Therapist Name of Therapist: [facility] - Cristina Dowd Therapist's Date of Therapist Appointment: 07/17/19 Time of Therapist Appointment: 9:00 a.m. Therapy Appointment Comment: [address], [place] [address] Therapist Release of Information: Obtained, Reviewed and Signed Mortgage Loan Coordinator Name of Mortgage Loan Coordinator: Harshil Avila Phone Number for Mortgage Loan Coordinator: [phone] Date of Appointment with Mortgage Loan Coordinator: 07/14/19 Time of Appointment with Mortgage Loan Coordinator: 1:00 p.m. Case Management Appointment Comment: Service Coordination Meeting at Psych Rehab Mortgage Loan Coordinator Release of Information: Obtained, Reviewed and Signed Post Discharge Appointments Primary Care Physician Name Of Family Doctor: [facility] Date of Appointment with PCP: 07/19/19 Time of Appointment with PCP: 9:00 a.m. Provider Appointment Comment[facility] [place] [address] Primary Care Release of Information: Obtained, Reviewed and Signed Partial or Psych Rehab Name of Partial or Psych Rehab: Psych Rehab - resume your normal schedule Release of Information for Partial or Psych Rehab: Obtained, Reviewed and Signed Smoking Cessation Counseling Tobacco Cessation Medication Prescribed at Discharge: Not Applicable/Non-Smoker Other #1: Name of Aftercare Appointment: [facility] Phone Number of Aftercare Appointment: Mayda - Date of Aftercare Appointment: 07/10/19 Time of Aftercare Appointment: 2:30 p.m. Aftercare Appointment Comment: Resume routine schedule of every Wednesday at 9 a.m. Release of Information Aftercare Appointment: Obtained, Reviewed and Signed Contact Information Discharge Discharge Address: [place] [address] Discharge Plan Discharge Items Patient Disposition: Home - Self-Care Reason For Visit: OCD,ANXIETY,DEPRESSION Discharge Diagnosis: Depression with psychotic features; generalized anxiety disorder Condition on Discharge: Fair Health Concerns: You are scheduled for a visit with your Family Doctor on 07/19/19 at 9:00. This visit was recommended to allow for discussion of the following medical concerns: - Review of diabetes medication regimen, HgbA1c >9 - Incidental thyroid findings on imaging studies (see below) During your admission, a referral was sent to [facility] Endocr[facility]ology - They will be calling you to schedule an appointment to following up on thyroid findings Activity: Resume your previous activity Non-emergency contact: Primary Care Provider, Psychiatrist, Therapist and Test Preparation Tutor Call non-emergency contact if: you have any medication questions and your symptoms worsen Follow-up/Referrals: Ethan Karimi MD [Primary Care Provider] - Diet: Carb Consistent or DM2 Addtl Attending Provider Instructions: SPECIAL CARE INSTRUCTIONS: 1. Follow through with your scheduled aftercare appointments. If unable to keep an appointment, please call to reschedule. 2. Take your medication only as prescribed. Medication should not be changed or stopped without the approval of your doctor. In the event of worsening symptoms or concerns about side effects, contact your doctor immediately. 3. Utilize new healthy coping skills, anger management skills, and stress management skills learned during your hospitalization. Journal feelings and process them with a support person. Identify stressors or situations that may result in relapse, deterioration or inappropriate behaviors and develop a plan to deal with those issues. 4. If your coping skills are ineffective and you are in crisis, contact your outpatient providers for direction. If unable to reach your providers, please call the CAN HELP LINE AT or go to the closest Emergency Room. 5. Avoid alcohol and un-prescribed drugs. 6. You have been provided with the Mental Health Advance Directives Pamphlet for your review. AFTERCARE APPOINTMENTS: * Please call your insurance company prior to your scheduled appointment to confirm your aftercare providers are covered. Take your insurance information to your appointments. WHO TO CALL AND WHEN: Medical Emergencies: For questions or emergencies related to your hospital stay, please contact the Inpatient Behavioral Health Unit at [phone]. A sander portable machine is on-call 26/04 for the Behavioral Health Unit for emergencies At any time you feel your situation is an emergency, you may also call 911 immediately. Your Doctors Instructions noted above were prepared by provider Licha Trinh PA-C. Pending Studies at Discharge: No Stand-Alone Forms: My [facility] Medications and DC Order Prescriptions: New benztropine 1 mg Tablet 1 mg PO HS 30 Days Qty: 30 RF: 0 quetiapine 25 mg Tablet 75 mg PO DAILY@0900,1400 30 Days Qty: 90 RF: 0 quetiapine [Seroquel] 200 mg Tablet 400 mg PO HS 30 Days Qty: 60 RF: 0 ropinirole 1 mg Tablet 1 mg PO HS 30 Days Qty: 30 RF: 0 Trintellix 10 mg Tablet 20 mg PO QAM 30 Days Qty: 60 RF: 0 pregabalin 100 mg capsule 100 mg PO TID 30 Days Qty: 90 RF: 0 metoprolol tartrate 25 mg Tablet 12.5 mg PO BID 30 Days Qty: 30 RF: 0 Continued metformin [Glucophage XR] 500 mg tablet extended release 24 hr 1,000 mg PO BID Qty: 120 RF: 1 levothyroxine 200 mcg tablet See Rx Instructions .ROUTE .COMPLEX Qty: 30 RF: 0 insulin glargine [Lantus Solostar U-100 Insulin] 100 unit/mL (3 mL) insulin pen 60 units subcut HS 90 Days Qty: 54 RF: 3 prazosin 5 mg capsule 5 mg PO HS RF: 0 ferrous sulfate [iron] 325 mg (65 mg iron) Tablet 325 mg PO BID RF: 0 Dexilant 60 mg capsule,biphase delayed releas 60 mg PO QAM RF: 0 fluticasone propion-salmeterol [Advair Diskus] 250-50 mcg/dose Blister With Device 1 inh INHALATION BID RF: 0 clopidogrel 75 mg tablet 75 mg PO HS RF: 0 cholecalciferol (vitamin D3) [Vitamin D3] 400 unit Tablet 2,000 unit PO DAILY RF: 0 atorvastatin 80 mg tablet 80 mg PO HS RF: 0 clonazepam 0.5 mg tablet See Rx Instructions PO TID Qty: 0 RF: 0 losartan [Cozaar] 50 mg tablet 50 mg PO DAILY RF: 0 ranitidine HCl 300 mg Tablet 300 mg PO DAILY RF: 0 meloxicam [Mobic] 7.5 mg tablet 7.5 mg PO BID PRN (Reason: Pain) RF: 0 albuterol sulfate [Ventolin HFA] 90 mcg/actuation HFA aerosol inhaler 1 - 2 puff Inhalation Q4H PRN (Reason: shortness of breath) RF: 0 multivitamin tablet 1 tab PO DAILY RF: 0 sucralfate 1 gram tablet 1 gm PO TID RF: 0 polyethylene glycol 3350 17 gram/dose powder 17 gm PO UD PRN (Reason: Constipation) RF: 0 Novolog Flexpen U-100 Insulin 100 unit/mL (3 mL) insulin pen 18 units subcut TID RF: 0 Trulicity 1.5 mg/0.5 mL pen injector 1.5 mg subcut WK RF: 0 cyanocobalamin (vitamin B-12) [Vitamin B-12] 1,000 mcg tablet 2,000 mcg PO QAM RF: 0 Discontinued Lyrica 150 mg capsule 150 mg PO TID Qty: 90 RF: 3 buspirone 15 mg tablet 15 mg PO BID RF: 0 venlafaxine [Effexor XR] 150 mg capsule,extended release 24hr 150 mg PO BID RF: 0 benztropine 1 mg tablet See Rx Instructions PO BID Qty: 0 RF: 0 ropinirole 1 mg tablet 1 mg PO BID RF: 0 quetiapine 300 mg tablet 300 mg PO HS RF: 0 Latuda 40 mg tablet See Rx Instructions .ROUTE .COMPLEX RF: 0 Latuda 80 mg tablet 80 mg PO HS RF: 0 quetiapine 50 mg tablet 50 mg PO BID RF: 0 Discharge Orders: Discharge Order (Routine); Ordered 07/10/19 Ordered By: Licha Trinh Admission Data Admit Date/Time: 06/30/19 15:51 Attending Provider: Kristian Ramos Admit Provider: Dean Greene Primary Care Provider: Ethan Karimi Other Interventions: Discharge Summary Assessment (RN) Last Done: 07/10/19 12:12 PSY Interdisciplinary Discharge Planning Last Done: 07/10/19 13:27 DC Date/Time DO NOT enter until pt leaves facility: 07/10/19 13:47
[2019-07-10 12:14] VITALS: BP 135/76; PULSE 76
== END 2019-07-10 13:47 | disposition home or self-care (01) | DRG 885 ==
LOC: 3S 15:51

== ENCOUNTER 2021-09-29 13:00 | Inpatient (IN) ==
[2021-09-29 15:27] LABS: Basophils # (auto) 0.02 K/uL (0-0.2); Basophils % (auto) 0.2 %; Eosinophils % (auto) 0.9 %; Hematocrit (blood only) 40.7 % (37-47); Hemoglobin 13.2 g/dL (12.0-16.0); Immature Granulocytes # (auto) 0.02 K/uL (0.00-0.02); Immature Granulocytes % (auto) 0.2 %; Lymphocytes # (auto) 1.61 K/uL (1.2-3.4); Lymphocytes % (auto) 14.9 %; Mean Corpuscular Hemoglobin 28.1 pg (25-34); Mean Corpuscular Hgb Conc 32.4 g/dL (32-36); Mean Corpuscular Volume 86.8 fL (80-100); Mean Platelet Volume 10.4 fL (7.4-10.4); Monocytes # (auto) 0.55 K/uL (0.11-0.59); Monocytes % (auto) 5.1 %; Neutrophils # (auto) 8.48 K/uL (1.4-6.5); Neutrophils % (auto) 78.7 %; Platelet Count 255 K/uL (130-400); RDW Coefficient of Variation 15.6 % (11.5-14.5); RDW Standard Deviation 50.1 fL (36.4-46.3); Red Blood Count 4.69 M/uL (4.2-5.4); White Blood Count 10.78 K/uL (4.8-10.8)
[2021-09-29 15:44] LABS: Alanine Aminotransferase 21 (12-78); Albumin Level 3.5 gm/dl (3.4-5.0); Aspartate Aminotransferase 3 U/L (15-37); BUN Creatinine Ratio 11.6 (10-20); Blood Urea Nitrogen 36 mg/dl (7-18); Calcium 9.8 mg/dl (8.5-10.1); Carbon Dioxide 23 mmol/L (21-32); Chloride 101 mmol/L (98-107); Est GFR (African American) 17.8 ml/min; Est GFR (Non-African American) 15.3 ml/min; Glucose 231 mg/dl (70-99); Potassium 3.5 mmol/L (3.5-5.1); Sodium 134 mmol/L (136-145)
[2021-09-29 15:55] LABS: Albumin Globulin Ratio 0.7 (0.9-2); Alkaline Phosphatase 129 U/L (45-117); Bilirubin,Total 0.5 mg/dl (0.2-1); Globulin 4.7 gm/dl (2.5-4.0); Total Protein 8.2 gm/dl (6.4-8.2); Troponin I < 0.015 ng/ml (0-0.045)
--- NOTE | 2021-09-29 16:49 | Electrocardiogram Report ---
Test Reason : Blood Pressure : / mmHG Vent. Rate : 097 BPM Atrial Rate : 097 BPM P-R Int : 138 ms QRS Dur : 088 ms QT Int : 344 ms P-R-T Axes : 040 -02 025 degrees QTc Int : 436 ms Poor data quality, interpretation may be adversely affected Normal sinus rhythm Normal ECG No previous ECGs available Confirmed by Miguel Cowan ([id number]) on 09/29/2021 4:49:03 PM Referred By: Confirmed By:Sanjay Cowan
--- NOTE | 2021-09-29 21:45 | Emergency Department Note ---
History of Present Illness General Chief complaint: Illness Stated complaint: difficulty ambulating Time Seen by Provider: 09/29/21 21:31 History of Present Illness This is a 61-year-old female that presents to the emergency department via EMS with complaints of "difficulty ambulating". The patient states that this past Wednesday she around 5 PM had diarrhea and low bit of gagging. She states that she was feeling much better by the following day but had decreased appetite. She has not really been eating or drinking since that time. She notes that this past Wednesday she fell down onto her knees in the kitchen. She denies striking the head. No loss of consciousness. She had some trouble getting up as she was feeling very weak overall. No unilateral weakness. No speech troubles. The patient states that she continues to feel weak overall and therefore prompting arrival here today. She follows locally with her PCP. The patient has chronic shortness of breath which is not new. She denies any chest pain, fevers, chills or abdominal pain. She does note some night sweats at times. Home Medications Medication Instructions Recorded Confirmed Type amitriptyline 25 mg tablet 25 mg PO DAILY 09/29/21 09/29/21 History atorvastatin 80 mg tablet 80 mg PO HS 09/29/21 09/29/21 History baclofen 20 mg tablet 20 mg PO DAILY PRN 09/29/21 09/29/21 History benztropine 0.5 mg tablet 0.5 mg PO DAILY 09/29/21 09/29/21 History clonazepam 0.5 mg tablet 0.5 mg PO TID 09/29/21 09/29/21 History clopidogrel 75 mg tablet 75 mg PO DAILY 09/29/21 09/29/21 History dexlansoprazole 60 mg 60 mg PO DAILY 09/29/21 09/29/21 History capsule,biphase delayed release (Dexilant) dulaglutide 1.5 mg/0.5 mL 1.5 mg SUBCUT DIRECTED 09/29/21 09/29/21 History subcutaneous pen injector (Trulicity) famotidine 20 mg tablet 20 mg PO BID 09/29/21 09/29/21 History insulin glargine 100 unit/mL (3 0 unit SUBCUT DIRECTED 09/29/21 09/29/21 History mL) subcutaneous pen (Lantus Solostar U-100 Insulin) lamotrigine 25 mg tablet 25 mg PO BID 09/29/21 09/29/21 History levothyroxine 200 mcg tablet 200 mcg PO QAM 09/29/21 09/29/21 History losartan 50 mg tablet 50 mg PO DAILY 09/29/21 09/29/21 History metoprolol tartrate 25 mg tablet 25 mg PO DAILY 09/29/21 09/29/21 History prazosin 5 mg capsule 5 mg PO DAILY 09/29/21 09/29/21 History pregabalin 100 mg capsule 100 mg PO TID 09/29/21 09/29/21 History quetiapine 400 mg tablet 400 mg PO DAILY 09/29/21 09/29/21 History quetiapine 50 mg tablet 50 mg PO DIRECTED 09/29/21 09/29/21 History ropinirole 1 mg tablet 1 mg PO BID 09/29/21 09/29/21 History sucralfate 1 gram tablet 1 g PO TID 09/29/21 09/29/21 History vortioxetine 20 mg tablet 20 mg PO BID 09/29/21 09/29/21 History (Trintellix) Allergies Allergy/AdvReac Type Severity Reaction Status Date / Time adhesive Allergy Intermediate TEARS SKIN Verified 09/29/21 22:54 duloxetine [From Cymbalta] AdvReac Severe ALTERED Verified 09/29/21 22:54 MENTAL STATUS--LOST DAYS, NO MEMORY topiramate [From Topamax] AdvReac Severe PER PT Verified 09/29/21 22:54 "GOT EVERY SIDE EFFECT LISTED ON LABEL". Past Med/Surg History Medical History Anxiety Central obesity Depression DM2 (diabetes mellitus, type 2) Hypothyroidism Neuropathy Polypharmacy Restless legs syndrome Social History Smoking Status: Never smoker Preferred Language: [place] Feels Safe at Home: Yes Review of Systems A total of 10 systems reviewed and were otherwise negative Physical Exam Vital Signs Vital Signs - 24 hr 09/29/21 13:12 09/29/21 21:40 Temperature 36.1 C L Temperature Source Temporal Artery Scan Pulse Rate 85 Pulse Rate [Apical] 90 Respiratory Rate 14 20 Blood Pressure 144/76 H Blood Pressure [Right Arm] 153/62 H Blood Pressure Mean 98 Blood Pressure Mean [Right Arm] 92 Pulse Oximetry 97 97 Oxygen Delivery Method Room Air Room Air Sepsis Recent Fever Within 48 Hours No Sepsis New/Unexplained Change in Mental Status No Sepsis Action Taken by Nursing No Action Required VITAL SIGNS - Vital signs and nursing notes were reviewed. Stable and afebrile. GENERAL - 61-year-old female appearing her stated age who is in no acute distress. Communicates well with provider and answers questions appropriately. SKIN - Without rashes. No meningeal or petechial rash. HEAD - NC/AT. EYES - PERRL with EOMI bilaterally. Sclera anicteric. EARS - No deformities of external structures noted on gross examination bilaterally. NOSE - Midline and without cyanosis. No epistaxis or purulent drainage noted. MOUTH/OROPHARYNX - Without perioral cyanosis. NECK - Neck with FROM. No nuchal rigidity. LUNGS - Chest wall symmetric without accessory muscle use, intercostals retractions, or central cyanosis. Normal vesicular breath sounds CTA B/L. No wheezes, rales, or rhonchi appreciated. CARDIAC - RRR ABDOMEN - Abdominal contour normal without pulsations or visible masses. BS normoactive all four quadrants. No tenderness, palpable masses, hepatosplenomegaly, or ascites noted. EXTREMITIES - No clubbing or peripheral cyanosis. No pretibial edema present. +5/5 strength noted in UE/LE bilaterally. NEUROLOGIC - Cranial nerves II through XII grossly intact. Sensory intact to light touch throughout. PSYCH - A&O, and cooperates fully with examiner. Pt is very pleasant and interacts well with examiner. Course Administered Medications Sodium Chloride (Nss 1000ml) 1,000 mls @ 125 mls/hr IV .Q8H [facility] Stop: 10/29/21 21:59 Last Infusion: 09/29/21 23:21 Dose: 125 mls/hr Documented by: [id number] Infusion: 09/29/21 22:17 Dose: 0 mls/hr Documented by: [id number] Admin: 09/29/21 22:07 Dose: 125 mls/hr Documented by: [id number] Insulin Glargine (Insulin Glargine Solostar 100 Units/Ml 3 Ml Pen) 30 units SC BID [facility] Stop: 10/30/21 02:18 Last Admin: 09/30/21 02:35 Dose: Not Given Documented by: [id number] Discontinued Medications Sodium Chloride (Nss 1000ml) 1,000 mls @ 999 mls/hr IV .Q1H1M [facility] Stop: 09/29/21 23:15 Last Infusion: 09/29/21 23:21 Dose: 0 mls/hr Documented by: [id number] Admin: 09/29/21 22:17 Dose: 999 mls/hr Documented by: [id number] Medical Decision Making Laboratory Data Result diagrams: 09/29/21 15:09 09/29/21 15:09 Lab Results 09/29/21 09/29/21 09/29/21 Range/Units 15:09 15:09 15:09 WBC 10.78 (4.8-10.8) K/uL RBC 4.69 (4.2-5.4) M/uL Hgb 13.2 (12.0-16.0) g/dL Hct 40.7 (37-47) % MCV 86.8 (80-100) fL MCH 28.1 (25-34) pg MCHC 32.4 (32-36) g/dL RDW Std Deviation 50.1 H (36.4-46.3) fL RDW Coeff of Aleah 15.6 H (11.5-14.5) % Plt Count 255 (130-400) K/uL MPV 10.4 (7.4-10.4) fL Immature Gran % (Auto) 0.2 % Neut % (Auto) 78.7 % Lymph % (Auto) 14.9 % [place] % (Auto) 5.1 % Eos % (Auto) 0.9 % Baso % (Auto) 0.2 % Neut # (Auto) 8.48 H (1.4-6.5) K/uL Lymph # (Auto) 1.61 (1.2-3.4) K/uL [place] # (Auto) 0.55 (0.11-0.59) K/uL Eos # (Auto) 0.10 (0-0.5) K/uL Baso # (Auto) 0.02 (0-0.2) K/uL Immature Gran # (Auto) 0.02 (0.00-0.02) K/uL Sodium 134 L (136-145) mmol/L Potassium 3.5 (3.5-5.1) mmol/L Chloride 101 (98-107) mmol/L Carbon Dioxide 23 (21-32) mmol/L Anion Gap 10.0 (3-11) BUN 36 H (7-18) mg/dl Creatinine 3.09 H (0.6-1.2) mg/dl Est Cr Clr Drug Dosing Not Reportable Est GFR ( Amer) 17.8 ml/min Est GFR (Non-Af Amer) 15.3 ml/min BUN/Creatinine Ratio 11.6 (10-20) Glucose 231 H (70-99) mg/dl Calcium 9.8 (8.5-10.1) mg/dl Magnesium 1.8 Cancelled (1.8-2.4) mg/dl Total Bilirubin 0.5 (0.2-1) mg/dl AST 3 L (15-37) U/L ALT 21 (12-78) Alkaline Phosphatase 129 H (45-117) U/L Total Creatine Kinase 107 (26-192) U/L Troponin I < 0.015 (0-0.045) ng/ml Total Protein 8.2 (6.4-8.2) gm/dl Albumin 3.5 (3.4-5.0) gm/dl Globulin 4.7 H (2.5-4.0) gm/dl Albumin/Globulin Ratio 0.7 L (0.9-2) Lipase 108 Cancelled (73-393) U/L TSH 1.220 (0.300-4.500) uIu/ml Urine Color Urine Appearance (Clear) Urine pH (4.5-7.5) Ur Specific Griffith (1.000-1.030) Urine Protein (Negative) Urine Glucose (UA) (Negative) Urine Ketones (Negative) Urine Blood (Negative) Urine Nitrite (Negative) Urine Bilirubin (Negative) Urine Urobilinogen (Negative) Ur Leukocyte Esterase (Negative) Urine WBC (Auto) (0-5) /hpf Urine RBC (Auto) (0-4) /hpf U Hyaline Cast (Auto) (0-5) /lpf U Epithel Cells (Auto) (0-5) /lpf Urine Bacteria (Auto) (Negative) Urine Yeast SARS-CoV-2 (PCR) (Negative) Influenza Type A (PCR) (Neg) Influenza Type B (PCR) (Neg) RSV (RT-PCR) (Neg) 09/29/21 09/29/21 Range/Units 22:04 22:04 WBC (4.8-10.8) K/uL RBC (4.2-5.4) M/uL Hgb (12.0-16.0) g/dL Hct (37-47) % MCV (80-100) fL MCH (25-34) pg MCHC (32-36) g/dL RDW Std Deviation (36.4-46.3) fL RDW Coeff of Aleah (11.5-14.5) % Plt Count (130-400) K/uL MPV (7.4-10.4) fL Immature Gran % (Auto) % Neut % (Auto) % Lymph % (Auto) % [place] % (Auto) % Eos % (Auto) % Baso % (Auto) % Neut # (Auto) (1.4-6.5) K/uL Lymph # (Auto) (1.2-3.4) K/uL [place] # (Auto) (0.11-0.59) K/uL Eos # (Auto) (0-0.5) K/uL Baso # (Auto) (0-0.2) K/uL Immature Gran # (Auto) (0.00-0.02) K/uL Sodium (136-145) mmol/L Potassium (3.5-5.1) mmol/L Chloride (98-107) mmol/L Carbon Dioxide (21-32) mmol/L Anion Gap (3-11) BUN (7-18) mg/dl Creatinine (0.6-1.2) mg/dl Est Cr Clr Drug Dosing Est GFR ( Amer) ml/min Est GFR (Non-Af Amer) ml/min BUN/Creatinine Ratio (10-20) Glucose (70-99) mg/dl Calcium (8.5-10.1) mg/dl Magnesium (1.8-2.4) mg/dl Total Bilirubin (0.2-1) mg/dl AST (15-37) U/L ALT (12-78) Alkaline Phosphatase (45-117) U/L Total Creatine Kinase (26-192) U/L Troponin I (0-0.045) ng/ml Total Protein (6.4-8.2) gm/dl Albumin (3.4-5.0) gm/dl Globulin (2.5-4.0) gm/dl Albumin/Globulin Ratio (0.9-2) Lipase (73-393) U/L TSH (0.300-4.500) uIu/ml Urine Color Yellow Urine Appearance Cloudy A (Clear) Urine pH 5.0 (4.5-7.5) Ur Specific Griffith 1.020 (1.000-1.030) Urine Protein 1+ H (Negative) Urine Glucose (UA) Trace H (Negative) Urine Ketones Trace H (Negative) Urine Blood Negative (Negative) Urine Nitrite Negative (Negative) Urine Bilirubin Negative (Negative) Urine Urobilinogen Negative (Negative) Ur Leukocyte Esterase 1+ H (Negative) Urine WBC (Auto) 10-30 H (0-5) /hpf Urine RBC (Auto) 0-4 (0-4) /hpf U Hyaline Cast (Auto) 0 (0-5) /lpf U Epithel Cells (Auto) >30 H (0-5) /lpf Urine Bacteria (Auto) Negative (Negative) Urine Yeast Not Reportable SARS-CoV-2 (PCR) NEGATIVE (Negative) Influenza Type A (PCR) Negative (Neg) Influenza Type B (PCR) Negative (Neg) RSV (RT-PCR) Negative (Neg) Imaging Data My Impression: Per my interpretation chest x-ray is without acute process. MDM Narrative Patient was seen and evaluated as above in room B02. Review was performed of nursing notes and vital signs. I did review pertinent previous visits and patient history. After obtaining a thorough history and physical examination the above work up was performed. It is important note that the medical record number listed for the patient suggest that this is her first visit to the emergency department. That is incorrect. The patient does have a well- documented past medical history in the EMR. The registration team was notified and they will merge the charts. The patient presents to us today for evaluation of overall fatigue and feeling weak. It is diffuse and not unilateral. No s peech troubles. No deficits. Options of care were discussed with the patient. Patient was seen during a period of high volume and acuity during the COVID-19 pandemic. Patient already had laboratory studies prior to me seeing her. The patient does not have any elevation of her white blood cell count. No anemia. Hyponatremia noted 134. There is a tripling of the patient's creatinine now at 3.09 up from her baseline of near 1. BUN is elevated at 36. Hyperglycemia at 231 noted. Troponin x1 -. TSH reveals a euthyroid state. Urinalysis does not suggest infection, rather contaminated sample. Covid testing negative. Maintenance fluids were ordered for the patient. At this time I do believe that further evaluation and management in the inpatient setting is warranted. Please refer to further documentation regarding her stay. Case was discussed with the attending physician. EKG was reviewed by myself and found to be Normal Sinus Rhythm at a rate of 97 beats per minute and per my interpretation reveals no ST elevation. QTc 436. QRS 88. GCS: 15 In the evaluation and treatment of this patient the following differential diagnoses were entertained: Dehydration, obstruction, electrolyte disturbance, OLENA, rhabdo, UTI, among others. Impression & Plan OLENA (acute kidney injury) Discharge Plan Visit Data Chief Complaint: Illness Stated Complaint: difficulty ambulating ED Provider: Stephanie Siddiqui ED Midlevel Provider: Jimmy Vazquez Discharge Problem: OLENA (acute kidney injury) Patient Disposition: Admitted As Inpatient Condition: Good
[2021-09-29] MEDS: SODIUM CHLORIDE 0.9% 1000ML 1,000 ML IV SCH (22:07)
[2021-09-29 22:10] LABS: Lipase 108 U/L (73-393); Magnesium 1.8 mg/dl (1.8-2.4)
[2021-09-29] MEDS ORDERED: SODIUM CHLORIDE 0.9% 1000ML 1,000 ML IV ONE (22:15)
[2021-09-29 22:40] LABS: Appearance Urine Cloudy (Clear); Bacteria Urine Automated Negative (Negative); Bilirubin Urine Negative (Negative); Blood Urine Negative (Negative); Color Urine Yellow; Epithelial Cell Urine Auto >30 /lpf (0-5); Glucose Urine UA Trace (Negative); Ketones Urine Trace (Negative); Leukocyte Esterase Urine 1+ (Negative); Nitrite Urine Negative (Negative); Protein Urine 1+ (Negative); Urobilinogen Urine Negative (Negative)
--- NOTE | 2021-09-29 22:40 | History & Physical Report ---
Date of Service September 29, 2021 Assessment & Plan (1) OLENA (acute kidney injury): (2) DM2 (diabetes mellitus, type 2): (3) Anxiety: (4) Depression: (5) Neuropathy: (6) Restless legs syndrome: (7) Hypothyroidism: (8) Polypharmacy: Plan: 61 yo F Hx DM2, anxiety, depression, hypothyroidism, obesity, restrictive lung disease, chronic pain, neuropathy, restless leg syndrome, central obesity admitted for OLENA and worsening generalized weakness. OLENA: Creatinine 3.09 on admission with a baseline creatinine of 1. History supports several days of GI symptoms including poor PO intake and diarrhea. Also with loss of memory x2 days with unknown day of fall; patient reports Wednesday. If fall happened Wednesday and did not get up until today, OLENA could be secondary to rhabdomyolysis. CK ordered. NSS 1L bolus x1 given; continue NSS at 125cc/hr. Last Echo 05/2021 with EF 60-65%. Holding losartan in setting of OLENA. Repeat BMP in AM. Acute memory loss, weakness, polypharmacy: On presentation with no memory of the weekend; thought today was Wednesday. Patient is on many medications for mental health, chronic pain, and neuropathy that put her at risk for memory changes, weakness, fall risk. On medication allergy list patient notably has intolerance to Cymbalta: "lost days, no memory of those days". By the same token, however, most of these medications have risk for withdrawal with abrupt stop. Ropinirole held. Pharmacy consult placed to potentially assist with deescalation of medication regimen. Clonazepam and Lyrica decreased to BID doing (from TID). PT and OT consults placed as patient has worsening weakness and ambulatory dysfunction. CT Head ordered, pending. No focal weakness, low likelihood of CVA. DM2: History of; last A1c 7.9%. Follows with Ricky Rodriguez. Hold home medications in favor of basal/bolus insulin. Continue home Lantus but at BID dosing. DM2 diet. Anxiety, depression: Patient is on Trintellix, lamotrigine, and Seroquel for the above. Clonazepam BID as needed. Will continue these for now with pharmacy consult as described above. Central obesity, restrictive lung disease, VERA: Continue Advair daily, albuterol as needed. CPAP qHS. Hypothyroidism: Euthyroid both clinically and per labwork. Continue levothyroxine 200mcg daily. Code Status: FULL CODE FEN/GI: heart healthy DM2 diet DVT ppx: Heparin SQ BID Dispo: Med/Surg History of Present Illness Chief Complaint: weakness, OLENA Primary Care Provider: Ethan Karimi MD 61 yo F Hx DM2, anxiety, depression, hypothyroidism, obesity, neuropathy, restless leg syndrome, restrictive lung disease due to central obesity, VERA on CPAP presented to the ER for generalized weakness x3 days and falls with inability to get up. She fell both and Wednesday per report. She called her PCP who called the ambulance. On asking the patient what happened between Wednesday and today, she states "Oh! I thought today was Wednesday. I don't remember Wednesday or Wednesday". She denies SOB, chest pain, abdominal pain. She endorses diarrhea and nausea Wednesday-Wednesday. She has not taken her medications since Wednesday, she believes. In the ER labwork showed creatinine 3.09, glucose 231, UA without signs of infection, COVID 19 and influenza negative, CBC normal. CXR without evidence of pneumonia or fluid overload. She was given NSS at 125cc/hr and hospitalist service was consulted for admission. Allergies Allergy/AdvReac Type Severity Reaction Status Date / Time adhesive Allergy Intermediate TEARS SKIN Verified 09/29/21 22:54 duloxetine [From Cymbalta] AdvReac Severe ALTERED Verified 09/29/21 22:54 MENTAL STATUS--LOST DAYS, NO MEMORY topiramate [From Topamax] AdvReac Severe PER PT Verified 09/29/21 22:54 "GOT EVERY SIDE EFFECT LISTED ON LABEL". Home Medications Medication Instructions Recorded Confirmed Type amitriptyline 25 mg tablet 25 mg PO DAILY 09/29/21 09/29/21 History atorvastatin 80 mg tablet 80 mg PO HS 09/29/21 09/29/21 History baclofen 20 mg tablet 20 mg PO DAILY PRN 09/29/21 09/29/21 History benztropine 0.5 mg tablet 0.5 mg PO DAILY 09/29/21 09/29/21 History clonazepam 0.5 mg tablet 0.5 mg PO TID 09/29/21 09/29/21 History clopidogrel 75 mg tablet 75 mg PO DAILY 09/29/21 09/29/21 History dexlansoprazole 60 mg 60 mg PO DAILY 09/29/21 09/29/21 History capsule,biphase delayed release (Dexilant) dulaglutide 1.5 mg/0.5 mL 1.5 mg SUBCUT DIRECTED 09/29/21 09/29/21 History subcutaneous pen injector (Trulicity) famotidine 20 mg tablet 20 mg PO BID 09/29/21 09/29/21 History insulin glargine 100 unit/mL (3 0 unit SUBCUT DIRECTED 09/29/21 09/29/21 History mL) subcutaneous pen (Lantus Solostar U-100 Insulin) lamotrigine 25 mg tablet 25 mg PO BID 09/29/21 09/29/21 History levothyroxine 200 mcg tablet 200 mcg PO QAM 09/29/21 09/29/21 History losartan 50 mg tablet 50 mg PO DAILY 09/29/21 09/29/21 History metoprolol tartrate 25 mg tablet 25 mg PO DAILY 09/29/21 09/29/21 History prazosin 5 mg capsule 5 mg PO DAILY 09/29/21 09/29/21 History pregabalin 100 mg capsule 100 mg PO TID 09/29/21 09/29/21 History quetiapine 400 mg tablet 400 mg PO DAILY 09/29/21 09/29/21 History quetiapine 50 mg tablet 50 mg PO DIRECTED 09/29/21 09/29/21 History ropinirole 1 mg tablet 1 mg PO BID 09/29/21 09/29/21 History sucralfate 1 gram tablet 1 g PO TID 09/29/21 09/29/21 History vortioxetine 20 mg tablet 20 mg PO BID 09/29/21 09/29/21 History (Trintellix) Past Med/Surg History Medical History Anxiety Central obesity Depression DM2 (diabetes mellitus, type 2) Hypothyroidism Neuropathy Polypharmacy Restless legs syndrome Social History Smoking Status: Never smoker Preferred Language: Monegasque Feels Safe at Home: Yes Review of Systems Review of Systems: All systems reviewed & are unremarkable except as noted in HPI & below Constitutional: + malaise and + weakness (generalized); no fever and no chills Respiratory: no cough and no dyspnea Cardiovascular: no chest pain, no palpitations and no edema Gastrointestinal: + diarrhea/loose stools; no abdominal pain and no constipation Genitourinary: no dysuria and no hematuria Physical Exam Constitutional: well developed and + morbidly obese; not ill appearing Eyes: PERRL, conjunctivae normal, anicteric sclerae ENMT: external ear and nose normal, oropharynx normal Neck: normal visual inspection Respiratory: poor respiratory effort, lungs clear to auscultation Cardiovascular: RRR, no murmur, no edema Gastrointestinal (Abdomen): normal bowel sounds, soft, nontender, no hepato splenomegaly protuberant abdomen Musculoskeletal: no cyanosis or clubbing, extremities motor strength 5/5 Skin: no rashes, warm and dry Neurologic: AAOx3, normal speech. No tremor. Symmetric sensation bilaterally. Psychiatric: A+Ox3, euthymic affect Results & Data Results & Data ([facility]) Vital Signs (Past 12 Hours) Vital Signs Temp Pulse Pulse Resp BP BP Pulse Ox 09/29/21 21:40 90 20 153/62 H 97 09/29/21 13:12 36.1 C L 85 14 144/76 H 97 Code Status & VTE Plan VTE Prophylaxis Plan VTE Prophylaxis will be ordered: Yes Supervising Physician Co-Signing Physician Notes Patient seen and examined, chart reviewed, case discussed with Dr. Sauer and I agree with her assessment and plan as above. In brief, patient is a 61yo female presenting with weakness, acute dehydration, reports of not recollecting the last two days due to illness She is afebrile, HD stable on exam, NAD Dry mmm, neck supple, no tenderness Heart - +S1/S2 Lungs CTA Abd - +BS, soft, NT/ND Ext -No edema No CVA tenderness Labs and images reviewed Assessment/Plan OLENA - most likely prerenal in setting of GI losses, poor intake -IVF, Monitor labs, avoid nephrotoxins ?Amnesia - ?medication effects vs acute illness -CT head Remainder of plan as above Resident Activity Tracking Resident Involvement: Resident Care Provided Care Provided: Adult [facility] Medicine
[2021-09-29 22:51] LABS: Cast Urine Automated 0 /lpf (0-5); RBC Urine Automated 0-4 /hpf (0-4)
[2021-09-29 22:53] LABS: Influenza A virus by PCR Negative (Neg); Influenza B virus by PCR Negative (Neg); RSV by PCR Negative (Neg); SARS CoV2 RNA(COVID-19) InHosp NEGATIVE (Negative)
[2021-09-29 23:11] LABS: Creatine Kinase 107 U/L (26-192)
[2021-09-29] MEDS ORDERED: CONSULT PHARMACY STA (23:16)
[2021-09-30] MEDS ORDERED: POLYETHYLENE (MIRALAX) 17 GM PACK PO PRN (02:19)
[2021-09-30] MEDS ORDERED: BACLOFEN 20 MG TAB PO PRN (02:19)
[2021-09-30] MEDS ORDERED: DEXTROSE 50% 50 ML SYRINGE IV PRN (02:19)
[2021-09-30] MEDS ORDERED: ALBUTEROL HFA 8 GM INHALER INH PRN (02:19)
[2021-09-30] MEDS ORDERED: GLUCAGON FOR INJ 1 MG VIAL SQ PRN (02:19)
[2021-09-30] MEDS ORDERED: GLUCOSE 10 TABS/TUBE PO PRN (02:19)
[2021-09-30] MEDS ORDERED: ACETAMINOPHEN 325 MG TAB PO PRN (02:19)
[2021-09-30] MEDS ORDERED: GLUCOSE 40% GEL 15 GM TUBE PO PRN (02:19)
[2021-09-30] MEDS ORDERED: ONDANSETRON INJ 2 MG/ML 2 ML VIAL IV PRN (02:19)
[2021-09-30] MEDS ORDERED: CARBOHYDRATES FOR HYPOGLYCEMIA PO PRN (02:19)
[2021-09-30] MEDS: INSULIN GLARGINE SOLOSTAR 100 UNITS/ML 3 ML PEN SC SCH ×4 (02:35→21:33)
--- NOTE | 2021-09-30 04:02 | Billing Data ---
Date of Service September 29, 2021 Coding Level of Care Code 02663 Initial Inpt Care Lvl 3
[2021-09-30] MEDS: LEVOTHYROXINE SODIUM 200 MCG TABLET PO SCH (05:41)
[2021-09-30 05:54] LABS: BUN Creatinine Ratio 15.5 (10-20); Blood Urea Nitrogen 34 mg/dl (7-18); Calcium 9.5 mg/dl (8.5-10.1); Carbon Dioxide 24 mmol/L (21-32); Chloride 106 mmol/L (98-107); Est GFR (African American) 27.4 ml/min; Est GFR (Non-African American) 23.6 ml/min; Glucose 210 mg/dl (70-99); Potassium 3.4 mmol/L (3.5-5.1); Sodium 138 mmol/L (136-145)
--- NOTE | 2021-09-30 07:14 | XRay Report ---
XR chest 1V portable CLINICAL HISTORY: diarrhea, weakness. Evaluate cardiopulmonary status COMPARISON STUDY: No previous studies for comparison. TECHNIQUE: 1 view of the chest FINDINGS: Single frontal view of the chest demonstrates the cardiomediastinal silhouette to be within normal li mits. The lungs are clear of alveolar opacities. There is no evidence for pleural effusion. There is no evidence for vascular congestion. There is no acute osseous pathology. IMPRESSION: No acute cardiopulmonary disease. ACT 112: Negative or not required by law. Electronically signed by: Marino Dodson M.D. 09/30/2021 7:13 AM
--- NOTE | 2021-09-30 07:17 | CT Scan Report ---
HEAD CT NONCONTRAST CT DOSE: 537.48 mGy.cm HISTORY: acute memory loss TECHNIQUE: Multiaxial CT images of the head were performed without the use of intravenous contrast. A utomated exposure control was utilized for this study. A dose lowering technique was utilized adheri ng to the principles of ALARA. Comparison: None. Findings: The paranasal sinuses and mastoid air cells are clear. The calvarium and skull base are int act. There is no mass, hematoma, midline shift, acute infarct. White matter hypodensity is nonspecifi c but suggestive of microvascular ischemic change. The ventricles and sulci demonstrate mild age-rela kenya involutional changes. Impression: No acute intracranial abnormality. Atrophy and microvascular ischemic changes. ACT 112: Negative or not required by law. Electronically signed by: Scout Santana M.D. 09/30/2021 7:15 AM
--- NOTE | 2021-09-30 07:33 | Hospitalist Progress Note ---
Date of Service September 30, 2021 Assessment & Plan (1) DM2 (diabetes mellitus, type 2): (2) Anxiety: (3) Depression: (4) Neuropathy: (5) Restless legs syndrome: (6) OLENA (acute kidney injury): (7) Hypothyroidism: (8) Polypharmacy: Plan: 61 yo F Hx DM2, anxiety, depression, hypothyroidism, obesity, restrictive lung disease, chronic pain, neuropathy, restless leg syndrome, central obesity admitted for OLENA and worsening generalized weakness. OLENA: - Creatinine 3.09 on admission with a baseline creatinine of 1. - History supports several days of GI symptoms including poor PO intake and diarrhea. - Also with loss of memory x2 days with unknown day of fall; patient reports Wednesday. - CK ordered in case patient down since Wednesday -- resulted normal - continue NSS at 125cc/hr. - Last Echo 05/2021 with EF 60-65%. - Holding losartan in setting of OLENA. - Repeat BMP in AM. Acute memory loss, weakness, polypharmacy: - On presentation with no memory of the weekend; thought today was Wednesday. - Patient is on many medications for mental health, chronic pain, and neuropathy that put her at risk for memory changes, weakness, fall risk. - On medication allergy list patient notably has intolerance to Cymbalta: "lost days, no memory of those days". - By the same token, however, most of these medications have risk for withdrawal with abrupt stop. - Ropinirole held. - Pharmacy consult placed to potentially assist with deescalation of medication regimen. - Clonazepam and Lyrica decreased to BID doing (from TID). - Stopped amitriptyline and lamotrigine due to these possibly causing sedatio n - PT and OT consults placed -- rec for inpatient rehab DM2: - History of; last A1c 7.9%. Follows with Ricky Rodriguez. - Hold home medications in favor of basal/bolus insulin. Continue home Lantus but at BID dosing. - DM2 diet. Anxiety, depression: - Patient is on Trintellix, lamotrigine, and Seroquel for the above. - Lamotrigine stopped as above - Clonazepam BID as needed. - Will continue these for now with pharmacy consult as described above. Central obesity, restrictive lung disease, VERA: - Continue Advair daily, albuterol as needed. - CPAP qHS. Hypothyroidism: - Euthyroid both clinically and per lab work - Continue levothyroxine 200mcg daily Code Status: FULL CODE FEN/GI: heart healthy DM2 diet DVT ppx: Heparin SQ BID Dispo: Med/Surg Admission and Anticipated Discharge Date Admission Date: September 29, 2021 Supervising Physician Co-Signing Physician Notes I also saw the patient from ortiz portions of the history and the physical examination. I agree with the impression and plan as noted in the resident documentation. The patient is seen in the emergency department holding area. At the time of our exam, she is awake, alert, and oriented. She complains of generalized musculoskeletal pain, although she tells us that this is chronic and similar to her baseline. In talking with her, she has had multiple new medications added in the past 7 to 14 days, including amitriptyline added by orthopedics for lower extremity radicular pain as well as lamotrigine added by her psychiatrist. EXAM 111/60, 84, 16, 96% room air Pleasant alert. Heart regular rhythm, slightly tachycardic Respirations nonlabored, lungs clear Abdomen obese, soft, nontender DATA Sodium 138, potassium 3.4, BUN 34, creatinine 2.16. Previous creatinine 3.09, so downtrending A knee x-ray obtained in the emergency department shows a trace left knee effusion. No fracture or dislocation. A CT scan of the head shows no acute intracranial abnormality. There is atrophy with microvascular ischemic changes appreciated. A chest x-ray is unremarkable A/P Acute kidney injury Improving Continue IV fluids and monitor electrolytes, avoid nephrotoxins Mental status change, improving Unsure of precipitating event, certainly OLENA could affect mentation; however, suspect either infection or polypharmacy as triggering event We will need to carefully review her medications especially recent additions Morbid obesity BMI will be 49.2 recent outpatient visit Complicating factor with regards to her musculoskeletal complaints Else per resident documentation Subjective Seen at bedside this morning. Patient reports that she remembers falling on Wednesday and struggling for a few hours to get up to her bed. Was eventually able to pull herself up and then does not remember anything until coming in to the hospital on Wednesday. She says she does not remember anything from Wednesday or Wednesday. She lives alone. Reports several falls. Denies current headache, confusion, nausea, vomiting, headache, chest pain, palpitations, abdominal pain, shortness of breath, cough, neuro deficits. Review of Systems Review of Systems: per subjective Physical Exam Physical Exam: GENERAL: A&Ox3. NAD. HEENT: PERRL, EOMI. Moist mucous membranes. NECK: No JVD. No lymphadenopathy. CHEST/LUNGS: CTAB A/P. No crackles, wheezes, rales, ronchi. HEART: RRR. No m/g/r. No carotid bruits. ABDOMEN: NT/ND, soft. BS+ x4 EXTREMITIES: No cyanosis, no clubbing, no edema. Left knee mildly TTP, ROM full. Unable to bear weight on leg. SKIN: Warm and dry. No rashes or lesions. PSYCHIATRIC: Euthymic affect, no SI, no pressured speech, no hallucinations NEUROLOGIC: No FND. CN II-XII grossly intact. Results & Data Results & Data ([facility]) Vital Signs (Past 12 Hours) Vital Signs Pulse Resp BP Pulse Ox 09/30/21 06:00 90 18 157/66 H 96 09/30/21 04:00 92 H 18 121/66 95 09/29/21 23:00 90 18 123/65 97 09/29/21 21:40 90 20 153/62 H 97 Resident Activity Tracking Resident Involvement: Resident Care Provided Care Provided: Adult Hospital Medicine
[2021-09-30] MEDS ORDERED: lamoTRIgine 25 MG TAB PO SCH (09:00)
[2021-09-30] MEDS ORDERED: AMITRIPTYLINE HCL 25 MG TAB PO SCH (09:00)
[2021-09-30] MEDS ORDERED: FAMOTIDINE 20 MG TAB PO SCH (09:00)
[2021-09-30] MEDS ORDERED: PRAZOSIN HCL 1 MG CAP PO SCH (09:00)
[2021-09-30] MEDS: SODIUM CHLORIDE 0.9% 1000ML 1,000 ML IV SCH ×3 (09:35→22:39)
[2021-09-30] MEDS: CLOPIDOGREL BISULFATE 75 MG TAB PO SCH ×3 (09:35→21:32)
[2021-09-30] MEDS: BENZTROPINE MESYLATE 0.5 MG TAB PO SCH (09:36)
[2021-09-30] MEDS: SUCRALFATE 1 GM TAB PO SCH ×3 (09:36→21:34)
[2021-09-30] MEDS: PANTOprazole 40 MG TAB PO SCH (09:36)
[2021-09-30] MEDS: QUEtiapine FUMARATE 200 MG TAB PO SCH (09:36)
[2021-09-30] MEDS: HEPARIN SOD 5,000 UNIT/0.5 ML VIAL SQ SCH ×2 (09:36→21:32)
[2021-09-30] MEDS: FLUTICASONE/VILANTEROL 100/25MCG 14 PUFFS/INHALER INH SCH (09:37)
[2021-09-30] MEDS: FAMOTIDINE 20 MG TAB PO SCH ×2 (09:37→21:32)
[2021-09-30] MEDS: METOPROLOL TARTRATE 25 MG TAB PO SCH ×2 (09:39→21:33)
[2021-09-30] MEDS: INSULIN ASPART PER UNIT SC SCH ×4 (09:44→21:32)
[2021-09-30] MEDS: clonazePAM 0.5 MG TAB PO SCH ×2 (09:48→21:31)
[2021-09-30] MEDS: PREGABALIN 100 MG CAP PO SCH ×2 (09:48→21:34)
--- NOTE | 2021-09-30 13:05 | XRay Report ---
XR knee LT 3V CLINICAL HISTORY: Fall, L knee pain COMPARISON STUDY: Left knee radiograph 12/27/2013. FINDINGS: Trace knee effusion. No fracture or dislocation. No radiopaque foreign bodies. No significa nt soft tissue swelling. Mild tricompartmental osteoarthritis, unchanged. IMPRESSION: 1. Trace left knee effusion. 2. No fracture or dislocation. ACT 112: Negative or not required by law. Electronically signed by: Scout Santana M.D. 09/30/2021 1:03 PM
[2021-09-30] MEDS: PATIENT'S HEIGHT AND/OR WEIGHT NEEDED SCH ×2 (13:59→14:00)
[2021-09-30] MEDS: ATORVASTATIN 40 MG TAB PO SCH (21:31)
[2021-09-30] MEDS: PRAZOSIN HCL 1 MG CAP PO SCH (21:34)
[2021-10-01] MEDS: LEVOTHYROXINE SODIUM 200 MCG TABLET PO SCH (05:41)
[2021-10-01] MEDS: SODIUM CHLORIDE 0.9% 1000ML 1,000 ML IV SCH ×2 (05:42→13:51)
[2021-10-01 06:34] LABS: Basophils # (auto) 0.03 K/uL (0-0.2); Basophils % (auto) 0.6 %; Eosinophils # (auto) 0.12 K/uL (0-0.5); Eosinophils % (auto) 2.2 %; Hematocrit (blood only) 35.1 % (37-47); Hemoglobin 11.3 g/dL (12.0-16.0); Immature Granulocytes # (auto) 0.01 K/uL (0.00-0.02); Immature Granulocytes % (auto) 0.2 %; Lymphocytes # (auto) 1.45 K/uL (1.2-3.4); Lymphocytes % (auto) 26.8 %; Mean Corpuscular Hemoglobin 27.8 pg (25-34); Mean Corpuscular Hgb Conc 32.2 g/dL (32-36); Mean Corpuscular Volume 86.2 fL (80-100); Mean Platelet Volume 10.1 fL (7.4-10.4); Monocytes # (auto) 0.47 K/uL (0.11-0.59); Monocytes % (auto) 8.7 %; Neutrophils # (auto) 3.34 K/uL (1.4-6.5); Neutrophils % (auto) 61.5 %; Platelet Count 210 K/uL (130-400); RDW Coefficient of Variation 15.3 % (11.5-14.5); RDW Standard Deviation 48.7 fL (36.4-46.3); Red Blood Count 4.07 M/uL (4.2-5.4); White Blood Count 5.42 K/uL (4.8-10.8)
[2021-10-01 07:10] LABS: BUN Creatinine Ratio 16.3 (10-20); Calcium 8.9 mg/dl (8.5-10.1); Creatinine Clr Calc Pharmacy 59.5 ml/min; Est GFR (African American) 47.9 ml/min; Est GFR (Non-African American) 41.3 ml/min; Potassium 3.4 mmol/L (3.5-5.1)
--- NOTE | 2021-10-01 07:46 | Hospitalist Progress Note ---
Date of Service October 01, 2021 Assessment & Plan (1) DM2 (diabetes mellitus, type 2): (2) Anxiety: (3) Depression: (4) Neuropathy: (5) Restless legs syndrome: (6) OLENA (acute kidney injury): (7) Hypothyroidism: (8) Polypharmacy: Plan: 61 yo F Hx DM2, anxiety, depression, hypothyroidism, obesity, restrictive lung disease, chronic pain, neuropathy, restless leg syndrome, central obesity admitted for OLENA and worsening generalized weakness. OLENA - improving - Creatinine 3.09 on admission with a baseline creatinine of 1 --creatinine close to baseline, discontinue IVF and encourage oral intake for avoidance of fluid overload - History supports several days of GI symptoms including poor PO intake and diarrhea. - Also with loss of memory x2 days with unknown day of fall; patient reports Wednesday. - CK ordered in case patient down since Wednesday -- resulted normal - Last Echo 05/2021 with EF 60-65%. - Holding losartan in setting of OLENA. - Repeat BMP in AM. Acute memory loss, weakness, polypharmacy: - On presentation with no memory of the weekend; thought today was Wednesday. - Patient is on many medications for mental health, chronic pain, and neuropathy that put her at risk for memory changes, weakness, fall risk. - On medication allergy list patient notably has intolerance to Cymbalta: "lost days, no memory of those days". - By the same token, however, most of these medications have risk for withdrawal with abrupt stop. - Ropinirole held. - Pharmacy consult placed to potentially assist with deescalation of medication regimen. - Clonazepam and Lyrica decreased to BID doing (from TID). - Stopped amitriptyline and lamotrigine due to these possibly causing sedation - Recommend outpatient discussion with regular providers for evaluation of need for multiple sedating meds - PT and OT consults placed -- rec for inpatient rehab, CM following DM2: - History of; last A1c 7.9%. Follows with Ricky Rodriguez. - Hold home medications in favor of basal/bolus insulin. Continue home Lantus. - DM2 diet. Anxiety, depression: - Patient is on Trintellix, lamotrigine, and Seroquel for the above. - Lamotrigine stopped as above - Clonazepam BID as needed. Central obesity, restrictive lung disease, VERA: - Continue Advair daily, albuterol as needed. - CPAP qHS. Hypothyroidism: - Euthyroid both clinically and per lab work - Continue levothyroxine 200mcg daily Code Status: FULL CODE FEN/GI: heart healthy DM2 diet DVT ppx: Heparin SQ BID Dispo: Med/Surg Admission and Anticipated Discharge Date Admission Date: September 29, 2021 Supervising Physician Co-Signing Physician Notes I also saw the patient from ortiz portions of the history and the physical examination. I agree with the impression and plan as noted in the resident documentation. The patient reports feeling much better overall. Specifically, she feels less "shaky" inside. EXAM 138/71, 93, 18, 36.6, 94% room air Pleasant alert. Heart regular rhythm, slightly tachycardic Respirations nonlabored, lungs clear Abdomen obese, soft, nontender DATA CBC shows a white count of 5.42 and hemoglobin 11.3 Sodium 140, potassium 3.4, BUN 22, creatinine 1.36 A/P Acute kidney injury Improving Discontinue fluids at this point and encourage p.o. fluids Repeat BMP in a.m. Mental status change, improving Completely resolved Suspect secondary to polypharmacy and acute renal failure/azotemia, both which are improved Morbid obesity Deconditioning BMI will be 49.2 recent outpatient visit Complicating factor with regards to her musculoskeletal complaints PT recommends inpatient physical therapy Else per resident documentation Subjective Seen at bedside this morning. Patient reports that her left knee is feeling better, though still somewhat sore and stiff. She is aware that physical therapy recommended inpatient rehabilitation. She reports that she would be open to this as she now has someone to help take care of her home and cat. Denies chest pain, palpitations, shortness of breath, cough, fever, chills, nausea, vomiting, abdominal pain. Review of Systems Review of Systems: Per subjective Physical Exam Physical Exam: GENERAL: A&Ox3. NAD. HEENT: PERRL, EOMI. Moist mucous membranes. NECK: No JVD. No lymphadenopathy. CHEST/LUNGS: CTAB A/P. No crackles, wheezes, rales, rhonchi. HEART: RRR. No m/g/r. No carotid bruits. ABDOMEN: NT/ND, soft. BS+ x4 PSYCHIATRIC: Euthymic affect, no SI, no pressured speech, no hallucinations Results & Data Results & Data ([facility]) Vital Signs (Past 12 Hours) Vital Signs Temp Pulse Pulse Pulse Resp BP BP 10/01/21 07:16 36.7 C 87 18 137/79 10/01/21 03:45 82 22 09/30/21 22:31 36.4 C L 87 20 160/90 H 09/30/21 22:10 86 20 09/30/21 20:00 36.8 C 94 H 18 105/54 L Pulse Ox 10/01/21 07:16 94 10/01/21 03:45 92 09/30/21 22:31 97 09/30/21 22:10 96 09/30/21 20:00 94 Resident Activity Tracking Resident Involvement: Resident Care Provided Care Provided: Adult Hospital Medicine
[2021-10-01] MEDS: FAMOTIDINE 20 MG TAB PO SCH (09:30)
[2021-10-01] MEDS: QUEtiapine FUMARATE 200 MG TAB PO SCH (09:30)
[2021-10-01] MEDS: BENZTROPINE MESYLATE 0.5 MG TAB PO SCH (09:30)
[2021-10-01] MEDS: SUCRALFATE 1 GM TAB PO SCH ×3 (09:31→23:27)
[2021-10-01] MEDS: PANTOprazole 40 MG TAB PO SCH (09:31)
[2021-10-01] MEDS: PREGABALIN 100 MG CAP PO SCH ×2 (09:32→23:29)
[2021-10-01] MEDS: METOPROLOL TARTRATE 25 MG TAB PO SCH ×2 (09:32→23:25)
[2021-10-01] MEDS: FLUTICASONE/VILANTEROL 100/25MCG 14 PUFFS/INHALER INH SCH (09:32)
[2021-10-01] MEDS: HEPARIN SOD 5,000 UNIT/0.5 ML VIAL SQ SCH ×2 (09:33→23:24)
[2021-10-01] MEDS: clonazePAM 0.5 MG TAB PO SCH ×2 (09:33→21:37)
[2021-10-01] MEDS: INSULIN GLARGINE SOLOSTAR 100 UNITS/ML 3 ML PEN SC SCH ×2 (09:35→21:32)
[2021-10-01] MEDS: INSULIN ASPART PER UNIT SC SCH ×4 (09:43→21:36)
[2021-10-01] MEDS: CLOPIDOGREL BISULFATE 75 MG TAB PO SCH (23:26)
[2021-10-01] MEDS: ATORVASTATIN 40 MG TAB PO SCH (23:26)
[2021-10-02] MEDS: PRAZOSIN HCL 1 MG CAP PO SCH (00:21)
[2021-10-02] MEDS: FAMOTIDINE 20 MG TAB PO SCH ×2 (00:21→10:12)
[2021-10-02] MEDS: LEVOTHYROXINE SODIUM 200 MCG TABLET PO SCH (05:42)
[2021-10-02 06:57] LABS: BUN Creatinine Ratio 12.9 (10-20); Calcium 9.6 mg/dl (8.5-10.1); Creatinine Clr Calc Pharmacy 62.2 ml/min; Est GFR (African American) 50.6 ml/min; Est GFR (Non-African American) 43.6 ml/min; Potassium 3.4 mmol/L (3.5-5.1)
[2021-10-02] MEDS ORDERED: PHARMACY GLYCEMIC MGMT CONSULT PRN (07:18)
--- NOTE | 2021-10-02 08:15 | Hospitalist Progress Note ---
Date of Service October 02, 2021 Assessment & Plan (1) DM2 (diabetes mellitus, type 2): (2) Anxiety: (3) Depression: (4) Neuropathy: (5) Restless legs syndrome: (6) OLENA (acute kidney injury): (7) Hypothyroidism: (8) Polypharmacy: Plan: 61 yo F Hx DM2, anxiety, depression, hypothyroidism, obesity, restrictive lung disease, chronic pain, neuropathy, restless leg syndrome, central obesity admitted for OLENA and worsening generalized weakness. OLENA - improving - Creatinine 3.09 on admission with a baseline creatinine of 1 --creatinine close to baseline, discontinue IVF and encourage oral intake for avoidance of fluid overload - History supports several days of GI symptoms including poor PO intake and diarrhea. - Also with loss of memory x2 days with unknown day of fall; patient reports Wednesday. - CK ordered in case patient down since Wednesday -- resulted normal - Last Echo 05/2021 with EF 60-65%. - Holding losartan in setting of OLENA. - Repeat BMP in AM. Acute memory loss, weakness, polypharmacy: - On presentation with no memory of the weekend; thought today was Wednesday. - Patient is on many medications for mental health, chronic pain, and neuropathy that put her at risk for memory changes, weakness, fall risk. - On medication allergy list patient notably has intolerance to Cymbalta: "lost days, no memory of those days". - By the same token, however, most of these medications have risk for withdrawal with abrupt stop. - Ropinirole held. - Pharmacy consult placed to potentially assist with deescalation of medication regimen. - Clonazepam and Lyrica decreased to BID doing (from TID). - Stopped amitriptyline and lamotrigine due to these possibly causing sedation - Recommend outpatient discussion with regular providers for evaluation of need for multiple sedating meds - PT and OT consults placed -- rec for inpatient rehab, CM following DM2: - History of; last A1c 7.9%. Follows with Ricky Rodriguez. - Hold home medications in favor of basal/bolus insulin. Continue home Lantus. - DM2 diet. Anxiety, depression: - Patient is on Trintellix, lamotrigine, and Seroquel for the above. - Lamotrigine stopped as above - Clonazepam BID as needed. Central obesity, restrictive lung disease, VERA: - Continue Advair daily, albuterol as needed. - CPAP qHS. Hypothyroidism: - Euthyroid both clinically and per lab work - Continue levothyroxine 200mcg daily Code Status: FULL CODE FEN/GI: heart healthy DM2 diet DVT ppx: Heparin SQ BID Dispo: Med/Surg Admission and Anticipated Discharge Date Admission Date: September 29, 2021 Review of Systems Review of Systems: Per subjective Results & Data Results & Data ([facility]) Vital Signs (Past 12 Hours) Vital Signs Temp Pulse Pulse Resp BP Pulse Ox 10/02/21 07:23 36.3 C L 85 16 174/95 H 93 10/02/21 05:43 36.5 C 82 22 139/77 100 10/02/21 02:45 90 24 94 10/02/21 00:45 94 H 25 H 96 10/01/21 22:40 36.8 C 94 H 24 142/80 H 96
--- NOTE | 2021-10-02 08:25 | Pharmacy Report ---
Pharmacy Glycemic Short Note 2 - Date of Service October 02, 2021 - Glycemic Short BSG Results (Last 24 hours): 10/01/21 10/01/21 10/01/21 12:08 17:18 20:53 Glucose POC Glucose 245 H 192 H 217 H 10/02/21 10/02/21 10/02/21 05:37 05:47 08:10 Glucose 218 H POC Glucose 206 H 223 H OUTPATIENT ANTIDIABETIC REGIMEN: * Lantus 65 units HS * Novolog 18 units TID meals + SS, TDD 60 units/day * Metformin 1000mg PO BID * Trulicity 1.5mg SQ Weekly ASSESSMENT: * 61 yo F Hx DM2, anxiety, depression, hypothyroidism, morbid obesity, restrictive lung disease, chronic pain, neuropathy, restless leg syndrome, admitted for OLENA and worsening generalized weakness, possibly d/t polypharmacy. * OLENA significantly improved from admission, SCr 3.09 --> 1.3mg/dl today. * Hyperglycemic past 48 hours on Lantus and NovoLog, tighten CF/CR and goal range at this time, continue Lantus, close to home dose, continue split daily dosing while inpatient. PLAN FOR INPATIENT GLYCEMIC CONTROL: * Hold outpatient Trulicity and Metformin * Basal insulin * Lantus 30 units SQ BID * Bolus insulin * NovoLog per scale ACHS or Q6hrs while NPO * Goal Range: Low 110 mg/dL - High 140 mg/dL * Correction Factor: 12 mg/dL/unit * Nutritional / Prandial insulin per carb ratio of 1 unit per 3 grams CHO consumed PLAN FOR DISCHARGE: * A1c 7.9%, to be determined
[2021-10-02] MEDS: SODIUM CHLORIDE 0.9% 1000ML 1,000 ML IV SCH (10:05)
[2021-10-02] MEDS: FLUTICASONE/VILANTEROL 100/25MCG 14 PUFFS/INHALER INH SCH (10:10)
[2021-10-02] MEDS: INSULIN GLARGINE SOLOSTAR 100 UNITS/ML 3 ML PEN SC SCH (10:10)
[2021-10-02] MEDS: INSULIN ASPART PER UNIT SC SCH ×2 (10:11→12:59)
[2021-10-02] MEDS: SUCRALFATE 1 GM TAB PO SCH (10:12)
[2021-10-02] MEDS: METOPROLOL TARTRATE 25 MG TAB PO SCH (10:13)
[2021-10-02] MEDS: BENZTROPINE MESYLATE 0.5 MG TAB PO SCH (10:14)
[2021-10-02] MEDS: PANTOprazole 40 MG TAB PO SCH (10:14)
[2021-10-02] MEDS: QUEtiapine FUMARATE 200 MG TAB PO SCH (10:15)
[2021-10-02] MEDS: HEPARIN SOD 5,000 UNIT/0.5 ML VIAL SQ SCH (10:15)
[2021-10-02] MEDS: clonazePAM 0.5 MG TAB PO SCH (10:24)
[2021-10-02] MEDS: PREGABALIN 100 MG CAP PO SCH (10:24)
--- NOTE | 2021-10-02 11:40 | Discharge Summary ---
Date of Service October 02, 2021 Admission HPI Per Admitting Provider 61 yo F Hx DM2, anxiety, depression, hypothyroidism, obesity, neuropathy, restless leg syndrome, restrictive lung disease due to central obesity, VERA on CPAP presented to the ER for generalized weakness x3 days and falls with inability to get up. She fell both and Wednesday per report. She called her PCP who called the ambulance. On asking the patient what happened between Wednesday and today, she states "Oh! I thought today was Wednesday. I don't remember Wednesday or Wednesday". She denies SOB, chest pain, abdominal pain. She endorses diarrhea and nausea Wednesday-Wednesday. She has not taken her medications since Wednesday, she believes. In the ER labwork showed creatinine 3.09, glucose 231, UA without signs of infection, COVID 19 and influenza negative, CBC normal. CXR without evidence of pneumonia or fluid overload. She was given NSS at 125cc/hr and hospitalist service was consulted for admission. Principal Diagnosis OLENA Discharge Exam GENERAL: A&Ox3. NAD. HEENT: PERRL, EOMI. Moist mucous membranes. NECK: No JVD. No lymphadenopathy. CHEST/LUNGS: CTAB A/P. No crackles, wheezes, rales, rhonchi. HEART: RRR. No m/g/r. No carotid bruits. PSYCHIATRIC: Euthymic affect, no SI, no pressured speech, no hallucinations Discharge Data Allergies Allergy/AdvReac Type Severity Reaction Status Date / Time adhesive Allergy Unknown "eats my Verified 09/30/21 08:22 skin" Aminoglycosides Allergy Unknown Hives Verified 09/30/21 08:22 azithromycin Allergy Unknown Hives Verified 09/30/21 08:22 bacitracin Allergy Unknown RASH Verified 09/30/21 08:22 Cephalosporins Allergy Unknown Hives Verified 09/30/21 08:22 ciprofloxacin Allergy Unknown EYE Verified 09/30/21 08:22 SWELLING, "burned my eyelids" duloxetine Allergy Unknown slurred Verified 09/30/21 08:22 speech/memory loss/ "like I was drunk" erythromycin base Allergy Unknown HIVES Verified 09/30/21 08:22 hydroxyzine Allergy Unknown PT DOESN'T Verified 09/30/21 08:22 REMEMBER REACTION minocycline Allergy Unknown HIVES Verified 09/30/21 08:22 mupirocin Allergy Unknown RASH Verified 09/30/21 08:22 neomycin Allergy Unknown RASH Verified 09/30/21 08:22 Penicillins Allergy Unknown HIVES Verified 09/30/21 08:22 polymyxin B Allergy Unknown RASH Verified 09/30/21 08:22 Quinolones Allergy Unknown Hives Verified 09/30/21 08:22 tetracycline Allergy Unknown HIVES Verified 09/30/21 08:22 aspirin AdvReac Unknown NOSEBLEEDS- Verified 09/30/21 08:22 CAN TAKE IBUPROFEN topiramate AdvReac Unknown SOB,DIZZINE Verified 09/30/21 08:22 SS Consultations 09/29/21 21:52 ED Decision to Admit Stat Ordered Studies 09/29/21 23:16 CT head/brain wo/w con Urgent Hospital Course (1) DM2 (diabetes mellitus, type 2): (2) Anxiety: (3) Depression: (4) Neuropathy: (5) Restless legs syndrome: (6) OLENA (acute kidney injury): (7) Hypothyroidism: (8) Polypharmacy: 61 yo F Hx DM2, anxiety, depression, hypothyroidism, obesity, restrictive lung disease, chronic pain, neuropathy, restless leg syndrome, central obesity admitted for OLENA and worsening generalized weakness. OLENA -improving - Creatinine 3.09 on admission with a baseline creatinine of 1 --creatinine close to baseline at [place] (1.30), discontinue IVF and encourage oral intake - History supports several days of GI symptoms including poor PO intake and diarrhea. - Also with loss of memory x2 days with unknown day of fall; patient reports Wednesday. - CK ordered in case patient down since Wednesday -- resulted normal - Last Echo 05/2021 with EF 60-65%. - Holding losartan in setting of OLENA. - Can continue losartan on DC - Recommend repeat BMP in AM Acute memory loss, weakness, polypharmacy: - On presentation with no memory of the weekend; thought today was Wednesday. - Patient is on many medications for mental health, chronic pain, and neuropathy that put her at risk for memory changes, weakness, fall risk. - On medication allergy list patient notably has intolerance to Cymbalta: "lost days, no memory of those days". - By the same token, however, most of these medications have risk for withdrawal with abrupt stop. - Ropinirole held. - Pharmacy consult placed to potentially assist with deescalation of medication regimen. - Clonazepam and Lyrica decreased to BID doing (from TID). - Stopped amitriptyline and lamotrigine due to these possibly causing sedation - Recommend outpatient discussion with regular providers for evaluation of need for multiple sedating meds - PT and OT consulted -- rec for inpatient rehab - Recommend continuation of all home meds except for amitriptylene and lamotrigine DM2: - History of; last A1c 7.9%. Follows with Ricky Rodriguez. - Held home medications in favor of basal/bolus insulin. - Continue home regimen at [place] - DM2 diet. Anxiety, depression: - Patient is on Trintellix, lamotrigine, and Seroquel for the above. - Lamotrigine stopped as above - Clonazepam BID as needed. - Patient did not have home Trintellix in hospital as not on formulary -- recommend restarting at discharge as soon as possible Central obesity, restrictive lung disease, VERA: - Continue Advair daily, albuterol as needed. - CPAP qHS. Hypothyroidism: - Euthyroid both clinically and per lab work - Continue levothyroxine 200mcg daily Code Status: FULL CODE Diet: heart healthy, DM2 diet Dispo: DC to Inpt rehab Total Time Total Time Spent Total Time Spent (In Minutes): See attending attestation Discharge Plan Discharge Items Patient Disposition: Transfer Inpatient Rehab Fac Reason For Visit: OLENA Discharge Diagnosis: OLNEA Condition on Discharge: Good Activity: Per Instructions section Non-emergency contact: Primary Care Provider Call non-emergency contact if: you have any medication questions and your symptoms worsen Follow-up/Referrals: Ethan Karimi MD [Primary Care Provider] - Diet: Carb Consistent or DM2 and Heart Healthy Addtl Attending Provider Instructions: 61 yo F Hx DM2, anxiety, depression, hypothyroidism, obesity, restrictive lung disease, chronic pain, neuropathy, restless leg syndrome, central obesity admitted for OLENA and worsening generalized weakness. OLENA -improving - Creatinine 3.09 on admission with a baseline creatinine of 1 --creatinine close to baseline at [place] (1.30), discontinue IVF and encourage oral intake - History supports several days of GI symptoms including poor PO intake and diarrhea. - Also with loss of memory x2 days with unknown day of fall; patient reports Wednesday. - CK ordered in case patient down since Wednesday -- resulted normal - Last Echo 05/2021 with EF 60-65%. - Holding losartan in setting of OLENA. - Can continue losartan on DC - Recommend repeat BMP in AM Acute memory loss, weakness, polypharmacy: - On presentation with no memory of the weekend; thought today was Wednesday. - Patient is on many medications for mental health, chronic pain, and neuropathy that put her at risk for memory changes, weakness, fall risk. - On medication allergy list patient notably has intolerance to Cymbalta: "lost days, no memory of those days". - By the same token, however, most of these medications have risk for withdrawal with abrupt stop. - Ropinirole held. - Pharmacy consult placed to potentially assist with deescalation of med ication regimen. - Clonazepam and Lyrica decreased to BID doing (from TID). - Stopped amitriptyline and lamotrigine due to these possibly causing sedation - Recommend outpatient discussion with regular providers for evaluation of need for multiple sedating meds - PT and OT consulted -- rec for inpatient rehab - Recommend continuation of all home meds except for amitriptylene and lamotrigine DM2: - History of; last A1c 7.9%. Follows with Ricky Rodriguez. - Held home medications in favor of basal/bolus insulin. - Continue home regimen at [place] - DM2 diet. Anxiety, depression: - Patient is on Trintellix, lamotrigine, and Seroquel for the above. - Lamotrigine stopped as above - Clonazepam BID as needed. - Patient did not have home Trintellix in hospital as not on formulary -- recommend restarting at discharge as soon as possible Central obesity, restrictive lung disease, VERA: - Continue Advair daily, albuterol as needed. - CPAP qHS. Hypothyroidism: - Euthyroid both clinically and per lab work - Continue levothyroxine 200mcg daily Code Status: FULL CODE Diet: heart healthy, DM2 diet Dispo: DC to Inpt rehab Pending Studies at Discharge: No Stand-Alone Forms: My [facility] Skilled Items Patient informed of condition?: Yes DNR: No Discharge Level of Care: Acute rehab Communicable Disease: No Discharge Prognosis: Improving Lines: None Urinary Catheter: No Medications and DC Order Prescriptions: Continued Trulicity 1.5 mg/0.5 mL pen injector 1.5 mg subcut WK 90 Days Qty: 45 RF: 3 atorvastatin 80 mg tablet 80 mg PO QPM Qty: 90 RF: 3 metformin [Glucophage XR] 500 mg tablet extended release 24 hr 1,000 mg PO BID 90 Days Qty: 360 RF: 3 Dexilant 60 mg capsule,biphase delayed releas 60 mg PO QAM Qty: 90 RF: 2 Lantus Solostar U-100 Insulin 100 unit/mL (3 mL) insulin pen 65 unit subcut HS 90 Days Qty: 58.5 RF: 3 ropinirole 1 mg tablet 1 mg PO BID Qty: 180 RF: 3 pregabalin 100 mg capsule 100 mg PO TID Qty: 90 RF: 5 losartan [Cozaar] 50 mg tablet 50 mg PO QAM Qty: 90 RF: 3 sucralfate 1 gram tablet 1 g PO TID Qty: 90 RF: 3 famotidine 20 mg tablet 20 mg PO BID Qty: 60 RF: 5 metoprolol tartrate 25 mg tablet 12.5 mg PO BID Qty: 30 RF: 5 clopidogrel 75 mg tablet 75 mg PO HS Qty: 30 RF: 5 adalimumab 40 mg/0.4 mL pen injector kit See Rx Instructions subcut .COMPLEX Qty: 4 RF: 0 (DME) Incentive Spirometer Misc See Rx Instructions .MEDSUPPLY Qty: 1 RF: 0 quetiapine [Seroquel] 50 mg tablet 50 mg PO TID RF: 0 Novolog Flexpen U-100 Insulin 100 unit/mL (3 mL) insulin pen 60 unit subcut DAILY RF: 0 lamotrigine [Lamictal] 25 mg tablet 50 mg PO HS RF: 0 adalimumab 80 mg/0.8 mL pen injector kit See Rx Instructions subcut .COMPLEX Qty: 3 RF: 0 prazosin 5 mg capsule 5 mg PO HS RF: 0 (DME) Dexcom G6 Sensor Device See Rx Instructions .Route RF: 0 (DME) Dexcom G6 Cover Inspector Misc See Rx Instructions .Route RF: 0 (DME) Dexcom G6 Transmitter Device See Rx Instructions .Route RF: 0 albuterol sulfate [Ventolin HFA] 90 mcg/actuation HFA aerosol inhaler 1 - 2 puff Inhalation Q4H PRN (Reason: shortness of breath) Qty: 8 RF: 3 Trintellix 20 mg tablet 40 mg PO QAM RF: 0 clonazepam 0.5 mg tablet 0.5 - 1 mg PO TID RF: 0 benztropine 1 mg tablet 1 mg PO HS RF: 0 levothyroxine 200 mcg tablet 200 mcg PO QAM RF: 0 Advair HFA 115-21 mcg/actuation HFA aerosol inhaler 2 puff inhalation BID RF: 0 docusate sodium [Stool Softener] 100 mg Tablet 100 mg PO DAILY RF: 0 losartan 50 mg tablet 50 mg PO DAILY RF: 0 atorvastatin 80 mg tablet 80 mg PO HS RF: 0 benztropine 0.5 mg tablet 0.5 mg PO DAILY RF: 0 ropinirole 1 mg tablet 1 mg PO BID RF: 0 sucralfate 1 gram tablet 1 g PO TID RF: 0 clonazepam 0.5 mg tablet 0.5 mg PO TID RF: 0 baclofen 20 mg Tablet 20 mg PO DAILY PRN (Reason: MUSCLE SPASMS) RF: 0 prazosin 5 mg capsule 5 mg PO DAILY RF: 0 famotidine 20 mg tablet 20 mg PO BID RF: 0 levothyroxine 200 mcg tablet 200 mcg PO QAM RF: 0 metoprolol tartrate 25 mg tablet 25 mg PO DAILY RF: 0 pregabalin 100 mg capsule 100 mg PO TID RF: 0 quetiapine 50 mg tablet 50 mg PO DIRECTED RF: 0 quetiapine 400 mg tablet 400 mg PO DAILY RF: 0 Lantus Solostar U-100 Insulin 100 unit/mL (3 mL) insulin pen 0 unit SUBCUT DIRECTED RF: 0 Dexilant 60 mg capsule,biphase delayed releas 60 mg PO DAILY RF: 0 Trintellix 20 mg tablet 20 mg PO BID RF: 0 Trulicity 1.5 mg/0.5 mL pen injector 1.5 mg SUBCUT DIRECTED RF: 0 Discontinued amitriptyline 10 mg tablet 10 mg PO HS RF: 0 baclofen 20 mg tablet 20 mg PO HS Qty: 60 RF: 5 clopidogrel 75 mg tablet 75 mg PO DAILY RF: 0 lamotrigine 25 mg tablet 25 mg PO BID RF: 0 amitriptyline 25 mg tablet 25 mg PO DAILY RF: 0 Discharge Orders: Discharge Order (Routine); Ordered 10/02/21 Ordered By: Robert Lee Admission Data Admit Date/Time: 09/29/21 22:15 Attending Provider: Blanco Sanford Admit Provider: Katia Sauer Primary Care Provider: Ethan Karimi. Other Providers: Cally Beck ; [facility] Supervising Physician Co-Signing Physician Notes I also saw the patient from ortiz portions of the history and the physical examination. I agree with the impression and plan as noted in the resident documentation. The patient still feels better than admission, although little bit more "shaky inside" when compared to yesterday. The patient has been accepted for inpatient physical therapy at [facility] and the planned discharge is for 3 PM today. EXAM Pleasant alert. Heart regular rhythm, slightly tachycardic Respirations nonlabored, lungs clear Abdomen obese, soft, nontender DATA Sodium 139, potassium 3.4, BUN 17, creatinine 1.30 A/P Acute kidney injury Essentially resolved With continued p.o. intake, suspect her creatinine will continue to normalize. Metabolic encephalopathy/toxic encephalopathy Suspect secondary to polypharmacy and acute renal failure/azotemia, both which are improved Medication changes as noted above. Morbid obesity Deconditioning BMI calculated at 49.2 at recent outpatient visit Complicating factor with regards to her musculoskeletal complaints PT recommends inpatient physical therapy; she has been accepted at [facility] with transportation set for this afternoon. Else per resident documentation Resident Activity Tracking Resident Involvement: Resident Care Provided Care Provided: Adult Hospital Medicine
== END 2021-10-02 15:38 | DRG 682 ==
LOC: EDBD → ED 13:00 → EDINP 22:15 → SUATTDRO 22:15 → MERGE 22:15 → 3N 09-30 05:14

== ENCOUNTER 2022-02-09 14:11 | Inpatient (IN) ==
--- NOTE | 2022-02-09 15:11 | Emergency Department Note ---
History of Present Illness General Chief complaint: Illness Stated complaint: VOMITING, DIARRHEA, SORE THROAT, COUGH Time Seen by Provider: 02/09/22 14:52 Source: patient Mode of arrival: ambulatory Limitations: no limitations History of Present Illness Provider complaint: vomiting, diarrhea, GERD Onset (ago): day(s) 9 Location: abdomen Maximum Pain Intensity: 4 Associated symptoms: + fever/chills, + loss of appetite, + malaise and + nausea/vomiting; no shortness of breath Treatments prior to arrival: none This is a 61-year-old female presents emergency department complaining of abdominal pain, vomiting, diarrhea, and reflux. Patient states last Wednesday she began noticing a sense of abdominal pain/burning. She states that evening she began developing reflux type symptoms and had vomiting. She states over the next several days she has had intermittent pain and vomiting. Then Wednesday she developed diarrhea which lasted for approximately 2 days. Patient denies noting any blood in the emesis or stools. States abdominal pain has been persistent. She states she does have a history of GERD and does take medications for this daily. Patient denies eating or drinking anything recently which could have exacerbated her GERD. 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 Patient denies any other recent changes to her medications. She states since being ill her sugars have been varying. She states she has had subjective fevers and chills. She denies any change in urine although states previously she did have a urinary tract infection with minimal symptoms. Patient states she feels weak and dehydrated. Pt seen during a time of high acuity and national emergency pandemic while wearing PPE. Home Medications Medication Instructions Recorded Confirmed Type dexlansoprazole 60 mg 60 mg PO [facility] #90 cap 01/24/21 02/09/22 Rx capsule,biphase delayed release (Dexilant) docusate sodium 100 mg tablet 100 mg PO DAILY 02/28/21 02/09/22 History (Stool Softener) Incentive Spirometer #1 ea 03/14/21 01/26/22 Rx blood-glucose meter,continuous 06/17/21 01/26/22 History (Dexcom G6 Section Plotter Operator) blood-glucose sensor (Dexcom G6 06/17/21 01/26/22 History Sensor) blood-glucose transmitter (Dexcom 06/17/21 01/26/22 History G6 Transmitter) albuterol sulfate 90 mcg/actuation 1 - 2 puff INHALATION Q4H PRN #8 gm 06/24/21 02/09/22 Rx aerosol inhaler (Ventolin HFA) fluticasone propionate 115 2 puff INHALATION BID 07/04/21 02/09/22 History mcg-salmeterol 21 mcg/actuation HFA inhaler (Advair HFA) metoprolol tartrate 25 mg tablet 12.5 mg PO BID #30 tab 08/22/21 02/09/22 Rx clopidogrel 75 mg tablet 75 mg PO HS #30 tab 09/09/21 02/09/22 Rx famotidine 20 mg tablet 20 mg PO BID 09/29/21 02/09/22 History levothyroxine 200 mcg tablet 200 mcg PO QAM 09/29/21 02/09/22 History losartan 50 mg tablet 50 mg PO DAILY 09/29/21 02/09/22 History prazosin 5 mg capsule 5 mg PO DAILY 09/29/21 02/09/22 History vortioxetine 20 mg tablet 20 mg PO BID 09/29/21 02/09/22 History (Trintellix) clonazepam 0.5 mg tablet 0.5 mg PO BID tab 10/22/21 02/09/22 History insulin aspart U-100 100 unit/mL 7 unit SUBCUT TID ml 10/22/21 02/09/22 History (3 mL) subcutaneous pen (Novolog Flexpen U-100 Insulin aspart) insulin glargine 100 unit/mL (3 20 unit SUBCUT BID ml 10/22/21 02/09/22 History mL) subcutaneous pen (Lantus Solostar U-100 Insulin) quetiapine 50 mg tablet (Seroquel) 50 mg PO BID tab 10/22/21 02/09/22 History ropinirole 0.5 mg tablet 0.5 mg PO DAILY 10/22/21 02/09/22 History atorvastatin 80 mg tablet 80 mg PO HS #90 tab 11/04/21 02/09/22 Rx quetiapine 400 mg tablet 400 mg PO HS #30 tab 12/18/21 02/09/22 Rx pregabalin 100 mg capsule 100 mg PO BID #60 cap 01/05/22 02/09/22 Rx amitriptyline 25 mg tablet 25 mg PO HS tab 01/06/22 02/09/22 History spironolactone 100 mg tablet 100 mg PO DAILY #30 tab 01/06/22 02/09/22 Rx dulaglutide 3 mg/0.5 mL 3 mg SUBCUT WK 90 Days #45 ml 01/07/22 02/09/22 Rx subcutaneous pen injector baclofen 20 mg tablet 20 mg PO DAILY tab 01/21/22 02/09/22 History adalimumab 40 mg/0.4 mL See Rx Instructions SUBCUT 01/22/22 02/09/22 Rx subcutaneous pen kit .COMPLEX #4 ea flurbiprofen 100 mg tablet 50 mg PO BID 02/09/22 02/09/22 History metformin 500 mg tablet,extended 1,000 mg PO BID 02/09/22 02/09/22 History release 24 hr Allergies Allergy/AdvReac Type Severity Reaction Status Date / Time adhesive Allergy Unknown "eats my Verified 02/09/22 19:56 skin" Aminoglycosides Allergy Unknown Hives Verified 02/09/22 19:56 azithromycin Allergy Unknown Hives Verified 02/09/22 19:56 bacitracin Allergy Unknown RASH Verified 02/09/22 19:56 Cephalosporins Allergy Unknown Hives Verified 02/09/22 19:56 ciprofloxacin Allergy Unknown EYE Verified 02/09/22 19:56 SWELLING, "burned my eyelids" duloxetine Allergy Unknown slurred Verified 02/09/22 19:56 speech/memory loss/ "like I was drunk" erythromycin base Allergy Unknown HIVES Verified 02/09/22 19:56 hydroxyzine Allergy Unknown PT DOESN'T Verified 02/09/22 19:56 REMEMBER REACTION minocycline Allergy Unknown HIVES Verified 02/09/22 19:56 mupirocin Allergy Unknown RASH Verified 02/09/22 19:56 neomycin Allergy Unknown RASH Verified 02/09/22 19:56 Penicillins Allergy Unknown HIVES Verified 02/09/22 19:56 polymyxin B Allergy Unknown RASH Verified 02/09/22 19:56 Quinolones Allergy Unknown Hives Verified 02/09/22 19:56 tetracycline Allergy Unknown HIVES Verified 02/09/22 19:56 aspirin AdvReac Unknown NOSEBLEEDS- Verified 02/09/22 19:56 CAN TAKE IBUPROFEN topiramate AdvReac Unknown SOB,DIZZINE Verified 02/09/22 19:56 SS Past Med/Surg History Medical History Deep vein thrombosis reason for plavix; 25 years ago RLE Degenerative disc disease Enlarged heart per Pro--no lug breaker and wire puller Hidradenitis suppurativa History of COVID-19 09/2020; body aches, fatigue, decreased appetite, loss of taste/smell, joint pain, BLLE tingling, cough, sob, brain fog; w lingering cough, sob, fatigue, brain fog Ahelbae-Ecxutheae-Lliza syndrome Morbid obesity with BMI of 50.0-59.9, adult On home oxygen therapy 7L via CPAP at night Osteopenia Personal history of diabetic foot ulcer Psychiatric care MAJOR ANXIETY AND DEPRESSION OVER LAST YR, USES CRISIS CENTER NEEDED (LAST 3-4 MON AGO) , FOLLOWS THERAPIST DIRECTED Pulmonary nodule Sleep apnea cpap with 7L of oxygen SOB (shortness of breath) on exertion FOLLOWING PULMONOLOGY - MOST RECENT VISIT LAST MONTH - NO DX AT CURRENT ? 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 Surgical History H/O ligation of vein RIGHT LEG History of bilateral cataract extraction History of colonoscopy with polypectomy History of esophagogastroduodenoscopy (EGD) History of tooth extraction History of umbilical hernia repair Status post trigger finger release x2---1 on each thumb Family History Aunt Breast cancer Uncle Family hx of colon cancer Colorectal cancer Mother Family history of diabetes mellitus Family history of reaction to anesthesia had difficulty waking and her "oxygen level would drop" Stroke Diabetes Heart disease Hypertension Father Prostate cancer Cancer Grandfather (Maternal) Myocardial infarction Sister Family history of diabetes mellitus Family history of reaction to anesthesia had difficulty waking and her "oxygen level would drop" Diabetes Hypertension Family/Other Family hx of colon cancer cousin Brother Family history of reaction to anesthesia HARD TIME COMING OUT OF ANESTHETIC Diabetes Denies family history of Ovarian cancer Uterine cancer Social History Smoking Status: Never smoker Second Hand Exposure: Yes (sister smokes); Hx Alcohol Use: No Hx Substance Use: No Preferred Language: Wallisian Communication Ability: Effective Visual Impairment: No Limitations Hearing Ability: Normal Manager Technical Training Required: No Beliefs That Will Affect Care: None marital status: Single Current Living Situation: Alone Current Living Situation Comment: [facility] current occupational status: disabled How many Children do You have: 0 Other Information That Helps Us Care for You: No Feels Safe at Home: Yes Safety Concerns: Feels Safe At This Time during the past year weight has: decreased > 10 lbs Seatbelt Use: always Sunscreen Use: Yes Assistive Devices: CPAP and Walker Review of Systems A total of 10 systems reviewed and were otherwise negative All systems reviewed & are unremarkable except as noted in HPI & below Physical Exam Vital Signs Vital Signs - 24 hr 02/09/22 14:24 Temperature 36.2 C L Temperature Source Temporal Artery Scan Pulse Rate 110 H Respiratory Rate 20 Respiratory Effort / Characteristics Non-Labored Respiratory Depth Normal Blood Pressure 123/73 Blood Pressure Mean 89 Pulse Oximetry 98 Oxygen Delivery Method Room Air Sepsis Recent Fever Within 48 Hours No Sepsis New/Unexplained Change in Mental Status N/A Sepsis Action Taken by Nursing No Action Required GENERAL: alert, unwell appearing, well nourished, no distress, non-toxic, BMI>44 EYE EXAM: normal conjunctiva, PERRL and EOM's grossly intact OROPHARYNX: no exudate, no erythema, lips, buccal mucosa, and tongue normal and mucous membranes are moist NECK: supple, no nuchal rigidity, no adenopathy, non-tender LUNGS: Clear to auscultation. Normal chest wall mechanics, no w/r/r HEART: no murmurs, S1 normal and S2 normal ABDOMEN: abdomen soft, non-tender, normo-active bowel sounds, no masses, no rebound or guarding. BACK: Back is symmetrical on inspection and there is no deformity, no midline tenderness, no CVA tenderness. SKIN: no rashes and no bruising UPPER EXTREMITIES: upper extremities are grossly normal. FROM, nml pulses b/l. LOWER EXTREMITIES: No pitting edema. FROM, nml pulses b/l. NEURO EXAM: Normal sensorium, cranial nerves II-XII grossly intact, normal speech, no facial droop, no gross weakness of arms, no gross weakness of legs. No ataxia. Gross sensation intact. Course Administered Medications Amitriptyline HCl (Amitriptyline Hcl 25 Mg Tab) 25 mg PO HS SHAMIKA Stop: 03/11/22 22:28 Last Admin: 05/10/22 22:01 Dose: 25 mg Documented by: [id number] Admin: 02/10/22 00:25 Dose: 25 mg Documented by: [id number] Atorvastatin Calcium (Atorvastatin 40 Mg Tab) 80 mg PO HS SHAMIKA Stop: 03/11/22 22:28 Last Admin: 02/10/22 22:02 Dose: 80 mg Documented by: [id number] Admin: 02/10/22 00:26 Dose: 80 mg Documented by: [id number] Baclofen (Baclofen 20 Mg Tab) 20 mg PO DAILY SHAMIKA Stop: 03/12/22 08:59 Last Admin: 02/10/22 09:20 Dose: 20 mg Documented by: [id number] Clonazepam (Clonazepam 0.5 Mg Tab) 0.5 mg PO BID SHAMIKA Stop: 03/11/22 22:28 Last Admin: 02/10/22 21:58 Dose: 0.5 mg Documented by: [id number] Admin: 02/10/22 09:28 Dose: 0.5 mg Documented by: [id number] Admin: 02/10/22 00:25 Dose: 0.5 mg Documented by: [id number] Clopidogrel Bisulfate (Clopidogrel Bisulfate 75 Mg Tab) 75 mg PO HS SHAMIKA Stop: 03/11/22 22:28 Last Admin: 02/10/22 22:02 Dose: 75 mg Documented by: [id number] Admin: 02/10/22 00:26 Dose: 75 mg Documented by: [id number] Docusate Sodium (Docusate Sodium 100 Mg Cap) 100 mg PO DAILY SHAMIKA Stop: 03/12/22 08:59 Last Admin: 02/10/22 09:20 Dose: 100 mg Documented by: [id number] Enoxaparin Sodium (Enoxaparin Inj 40 Mg/0.4 Ml Syr) 40 mg SQ Q12H SHAMIKA Stop: 03/12/22 09:14 Last Admin: 02/10/22 22:01 Dose: 40 mg Documented by: [id number] Admin: 02/10/22 09:19 Dose: 40 mg Documented by: [id number] Famotidine (Famotidine 20 Mg Tab) 20 mg PO BID SHAMIKA Stop: 03/11/22 22:28 Last Admin: 02/10/22 22:02 Dose: 20 mg Documented by: [id number] Admin: 02/10/22 09:20 Dose: 20 mg Documented by: [id number] Admin: 02/10/22 00:26 Dose: 20 mg Documented by: [id number] Fluticasone/Vilanterol (Fluticasone/Vilanterol 200/25mcg 14 Puffs/Inhaler) 1 puffs INH DAILY [facility] Stop: 03/12/22 08:59 Last Admin: 02/10/22 09:22 Dose: 1 puffs Documented by: [id number] Lactated Ringer's (Lr) 1,000 mls @ 80 mls/hr IV .[id number] SHAMIKA Stop: 03/11/22 22:28 Last Admin: 02/10/22 12:38 Dose: 80 mls/hr Documented by: [id number] Infusion: 02/10/22 12:23 Dose: 80 mls/hr Documented by: [id number] Admin: 02/09/22 23:53 Dose: 80 mls/hr Documented by: [id number] Ertapenem 1,000 mg/ Syringe 10 mls @ 2 mls/min IV Q24H [facility] Stop: 02/20/22 20:59 Last Admin: 02/10/22 22:06 Dose: 2 mls/min Documented by: [id number] Insulin Aspart (Insulin Aspart Per Unit) 0 units SC Q6 [facility] Stop: 03/11/22 23:14 Last Admin: 02/11/22 00:40 Dose: Not Given Documented by: [id number] Cosigned by: [id number] Admin: 02/10/22 17:50 Dose: 1 units Documented by: [id number] Cosigned by: [id number] Admin: 02/10/22 12:38 Dose: 2 units Documented by: [id number] Cosigned by: [id number] Admin: 02/10/22 06:03 Dose: 1 units Documented by: [id number] Cosigned by: [id number] Admin: 02/10/22 00:23 Dose: 3 units Documented by: [id number] Cosigned by: [id number] Insulin Glargine (Insulin Glargine Solostar 100 Units/Ml 3 Ml Pen) 15 units SQ BID [facility] Stop: 03/11/22 23:14 Last Admin: 02/10/22 22:03 Dose: 15 units Documented by: [id number] Cosigned by: [id number] Admin: 02/10/22 09:22 Dose: 15 units Documented by: [id number] Cosigned by: [id number] Admin: 02/10/22 00:24 Dose: 15 units Documented by: [id number] Cosigned by: [id number] Levothyroxine Sodium (Levothyroxine Sodium 200 Mcg Tablet) 200 mcg PO DAILYBB SHAMIKA Stop: 03/12/22 06:29 Last Admin: 02/10/22 06:04 Dose: 200 mcg Documented by: [id number] Metoprolol Tartrate (Metoprolol Tartrate 25 Mg Tab) 12.5 mg PO BID SHAMIKA Stop: 03/11/22 22:28 Last Admin: 02/10/22 21:58 Dose: 12.5 mg Documented by: [id number] Admin: 02/10/22 09:20 Dose: 12.5 mg Documented by: [id number] Admin: 02/10/22 00:27 Dose: 12.5 mg Documented by: [id number] Miscellaneous (Vortioxetine [Trintellix]: Order Awaiting Action) 1 ea N/A QS [facility] Stop: 03/12/22 07:59 Last Admin: 02/11/22 00:40 Dose: Not Given Documented by: [id number] Admin: 02/10/22 15:09 Dose: Not Given Documented by: [id number] Admin: 02/10/22 09:03 Dose: Not Given Documented by: [id number] Pantoprazole Sodium (Pantoprazole 40 Mg Tab) 40 mg PO QAM SHAMIKA Stop: 03/12/22 08:59 Last Admin: 02/10/22 09:20 Dose: 40 mg Documented by: [id number] Prazosin HCl (Prazosin Hcl 1 Mg Cap) 5 mg PO DAILY SHAMIKA Stop: 03/12/22 08:59 Last Admin: 02/10/22 09:19 Dose: 5 mg Documented by: [id number] Pregabalin (Pregabalin 100 Mg Cap) 100 mg PO BID SHAMIKA Stop: 03/11/22 22:28 Last Admin: 02/10/22 21:58 Dose: 100 mg Documented by: [id number] Admin: 02/10/22 09:28 Dose: 100 mg Documented by: [id number] Admin: 02/10/22 00:25 Dose: 100 mg Documented by: [id number] Quetiapine Fumarate (Quetiapine Fumarate 25 Mg Tablet) 50 mg PO BID@0900,1400 [facility] Stop: 03/12/22 08:59 Last Admin: 02/10/22 14:25 Dose: 50 mg Documented by: [id number] Admin: 02/10/22 09:19 Dose: 50 mg Documented by: [id number] Quetiapine Fumarate (Quetiapine Fumarate 200 Mg Tab) 400 mg PO HS SHAMIKA Stop: 03/11/22 22:28 Last Admin: 02/10/22 22:01 Dose: 400 mg Documented by: [id number] Admin: 02/10/22 00:28 Dose: 400 mg Documented by: [id number] Ropinirole HCl (Ropinirole Hcl 0.25 Mg Tablet) 0.5 mg PO DAILY SHAMIKA Stop: 03/12/22 08:59 Last Admin: 02/10/22 09:20 Dose: 0.5 mg Documented by: [id number] Spironolactone (Spironolactone 100 Mg Tab) 100 mg PO DAILY SHAMIKA Stop: 03/12/22 08:59 Last Admin: 02/10/22 09:20 Dose: 100 mg Documented by: [id number] Discontinued Medications Sodium Chloride (Nss 1000ml) 1,000 mls @ 250 mls/hr IV .Q4H SHAMIKA Stop: 03/11/22 15:14 Last Infusion: 02/09/22 22:42 Dose: 0 mls/hr Documented by: [id number] Admin: 02/09/22 19:38 Dose: 250 mls/hr Documented by: [id number] Infusion: 02/09/22 19:38 Dose: 250 mls/hr Documented by: [id number] Admin: 02/09/22 15:50 Dose: 250 mls/hr Documented by: [id number] Famotidine (Pepcid 20mg Iv Push) 20 mg in 5 mls @ 2.5 mls/min IV NOW STA Stop: 02/09/22 15:13 Last Admin: 02/09/22 15:53 Dose: 2.5 mls/min Documented by: [id number] Magnesium Sulfate/Dextrose (Magnesium Sulfate / D5w) 1 gm in 100 mls @ 100 mls/hr IV Q1H SHAMIKA Stop: 02/09/22 18:24 Last Infusion: 02/09/22 19:02 Dose: 0 mls/hr Documented by: [id number] Admin: 02/09/22 18:02 Dose: 100 mls/hr Documented by: [id number] Infusion: 02/09/22 17:58 Dose: 100 mls/hr Documented by: [id number] Infusion: 02/09/22 17:05 Dose: 100 mls/hr Documented by: [id number] Infusion: 02/09/22 16:52 Dose: 0 mls/hr Documented by: [id number] Admin: 02/09/22 16:45 Dose: 100 mls/hr Documented by: [id number] Acetaminophen (Ofirmev) 1,000 mg in 100 mls @ 400 mls/hr IV NOW STA Stop: 02/09/22 16:43 Last Infusion: 02/09/22 17:02 Dose: 0 mls/hr Documented by: [id number] Admin: 02/09/22 16:45 Dose: 400 mls/hr Documented by: [id number] Ertapenem (Invanz) 10 mls @ 2 mls/min IV NOW STA Stop: 02/09/22 19:21 Last Admin: 02/09/22 19:37 Dose: 2 mls/min Documented by: [id number] Magnesium Sulfate/Dextrose (Magnesium Sulfate / D5w) 1 gm in 100 mls @ 50 mls/hr IV Q2H SHAMIKA Stop: 02/10/22 05:14 Last Infusion: 02/10/22 06:09 Dose: 0 mls/hr Documented by: [id number] Admin: 02/10/22 03:53 Dose: 50 mls/hr Documented by: [id number] Infusion: 02/10/22 03:50 Dose: 50 mls/hr Documented by: [id number] Admin: 02/10/22 01:50 Dose: 50 mls/hr Documented by: [id number] Infusion: 02/10/22 01:50 Dose: 50 mls/hr Documented by: [id number] Admin: 02/09/22 23:55 Dose: 50 mls/hr Documented by: [id number] Insulin Human Regular (Novolin-R Insulin Per Unit Charge) 6 units SC NOW STA Stop: 02/09/22 16:26 Last Admin: 02/09/22 16:45 Dose: 6 units Documented by: [id number] Cosigned by: [id number] Insulin Human Regular (Novolin-R Insulin Per Unit Charge) 8 units SC NOW STA Stop: 02/09/22 18:59 Last Admin: 02/09/22 19:09 Dose: 8 units Documented by: [id number] Cosigned by: [id number] Ioversol (Optiray 320 100ml) 94 ml IV ONCE ONE Stop: 02/09/22 16:56 Last Admin: 02/09/22 16:59 Dose: 94 ml Documented by: [id number] Metoclopramide HCl (Metoclopramide Hcl Inj 5 Mg/Ml 2 Ml Vial) 5 mg IV ONE ONE Stop: 02/09/22 15:13 Last Admin: 02/09/22 15:55 Dose: 5 mg Documented by: [id number] Ondansetron HCl (Ondansetron Inj 2 Mg/Ml 2 Ml Vial) 4 mg IV NOW STA Stop: 02/09/22 18:59 Last Admin: 02/09/22 19:09 Dose: 4 mg Documented by: [id number] Medical Decision Making Differential Diagnosis Differential: Gastroenteritis, Food Borne, Esophageal Perforation, , Electrolyte Abnormality, Dehydration, Intraabdominal Infection, UTI/Pyelonephritis, Bowel Obstruction, Biliary Pathology, amongst other pathology entertained. Medical Records Attestation: I reviewed the patient's medical records. Home Medications Current Medication List: was personally reviewed by me Laboratory Data Attestation: I reviewed the patient's lab results. Result diagrams: 02/10/22 07:02 02/10/22 07:02 Lab Results 02/09/22 02/09/22 02/09/22 Range/Units 15:24 15:24 15:24 WBC 8.87 (4.8-10.8) K/uL RBC 4.44 (4.2-5.4) M/uL Hgb 12.6 (12.0-16.0) g/dL Hct 38.0 (37-47) % MCV 85.6 (80-100) fL MCH 28.4 (25-34) pg MCHC 33.2 (32-36) g/dL RDW Std Deviation 45.5 (36.4-46.3) fL RDW Coeff of Aleah 14.5 (11.5-14.5) % Plt Count 263 (130-400) K/uL MPV 10.2 (7.4-10.4) fL Immature Gran % (Auto) 0.1 % Neut % (Auto) 79.1 % Lymph % (Auto) 13.6 % [place] % (Auto) 5.3 % Eos % (Auto) 1.7 % Baso % (Auto) 0.2 % Neut # (Auto) 7.01 H (1.4-6.5) K/uL Lymph # (Auto) 1.21 (1.2-3.4) K/uL [place] # (Auto) 0.47 (0.11-0.59) K/uL Eos # (Auto) 0.15 (0-0.5) K/uL Baso # (Auto) 0.02 (0-0.2) K/uL Immature Gran # (Auto) 0.01 (0.00-0.02) K/uL Sodium 133 L (136-145) mmol/L Potassium 4.8 (3.5-5.1) mmol/L Chloride 102 (98-107) mmol/L Carbon Dioxide 24 (21-32) mmol/L Anion Gap 7 (3-11) BUN 15 (6-23) mg/dl Creatinine 1.16 (0.6-1.2) mg/dl Est Cr Clr Drug Dosing 67.2 ml/min Est GFR ( Amer) 58.0 ml/min Est GFR (Non-Af Amer) 50.1 ml/min BUN/Creatinine Ratio 12.9 (10-20) Glucose 376 H* (70-99(Fasting)) mg/dl POC Glucose (70-99) mg/dl Calcium 9.7 (8.5-10.1) mg/dl Magnesium 1.3 L (1.7-2.4) mg/dl Total Bilirubin 0.4 (0.2-1.0) mg/dl AST 10 L (13-39) U/L ALT 14 (7-52) U/L Alkaline Phosphatase 128 H (34-104) U/L Troponin I High Sens 3.8 (0-14) pg/ml Total Protein 7.7 (6.0-8.3) gm/dl Albumin 3.9 (3.4-5.0) gm/dl Globulin 3.8 (2.5-4.0) gm/dl Albumin/Globulin Ratio 1.0 (0.9-2) Lipase 46 (11-82) U/L TSH 1.379 (0.300-4.500) uIu/ml SARS-CoV-2, RNA, NAAT (NEGATIVE) 02/09/22 02/09/22 Range/Units 18:54 19:23 WBC (4.8-10.8) K/uL RBC (4.2-5.4) M/uL Hgb (12.0-16.0) g/dL Hct (37-47) % MCV (80-100) fL MCH (25-34) pg MCHC (32-36) g/dL RDW Std Deviation (36.4-46.3) fL RDW Coeff of Aleah (11.5-14.5) % Plt Count (130-400) K/uL MPV (7.4-10.4) fL Immature Gran % (Auto) % Neut % (Auto) % Lymph % (Auto) % [place] % (Auto) % Eos % (Auto) % Baso % (Auto) % Neut # (Auto) (1.4-6.5) K/uL Lymph # (Auto) (1.2-3.4) K/uL [place] # (Auto) (0.11-0.59) K/uL Eos # (Auto) (0-0.5) K/uL Baso # (Auto) (0-0.2) K/uL Immature Gran # (Auto) (0.00-0.02) K/uL Sodium (136-145) mmol/L Potassium (3.5-5.1) mmol/L Chloride (98-107) mmol/L Carbon Dioxide (21-32) mmol/L Anion Gap (3-11) BUN (6-23) mg/dl Creatinine (0.6-1.2) mg/dl Est Cr Clr Drug Dosing ml/min Est GFR ( Amer) ml/min Est GFR (Non-Af Amer) ml/min BUN/Creatinine Ratio (10-20) Glucose (70-99(Fasting)) mg/dl POC Glucose 360 H* (70-99) mg/dl Calcium (8.5-10.1) mg/dl Magnesium (1.7-2.4) mg/dl Total Bilirubin (0.2-1.0) mg/dl AST (13-39) U/L ALT (7-52) U/L Alkaline Phosphatase (34-104) U/L Troponin I High Sens (0-14) pg/ml Total Protein (6.0-8.3) gm/dl Albumin (3.4-5.0) gm/dl Globulin (2.5-4.0) gm/dl Albumin/Globulin Ratio (0.9-2) Lipase (11-82) U/L TSH (0.300-4.500) uIu/ml SARS-CoV-2, RNA, NAAT NEGATIVE (NEGATIVE) Imaging Data Radiologist's Impression: CT SCAN OF THE ABDOMEN AND PELVIS WITH IV CONTRAST CLINICAL HISTORY: Upper abdominal pain. Vomiting. COMPARISON STUDY: Abdominal CT dated 09/02/2007. Chest CT dated 01/14/2021. TECHNIQUE: Following the IV administration of 94 cc of Optiray 320, CT scan of the abdomen and pelvis is performed from the lung bases to the proximal femora. Images are reviewed in the axial, sagittal, and coronal planes. IV contrast was administered without complication. A dose lowering technique was utilized adhering to the principles of ALARA. CT DOSE: 2013.00 mGy.cm FINDINGS: Lung bases: The heart is normal in size and without pericardial effusion. Calcified granulomas are seen at the left lung base. There are 2 right lower lobe pulmonary nodules measuring up to 3 mm seen on images #12 and #62. These are unchanged from the 01/14/[address] No airspace consolidation or pleural effusion is identified. Liver: The contrast-enhanced liver is normal in enlarged, measuring 21.4 cm in craniocaudal length. The liver demonstrates diffusely diminished attenuation c onsistent with hepatic steatosis. There is no intrahepatic biliary ductal dilatation. The hepatic veins and portal veins are patent. Gallbladder: Unremarkable. Spleen: Normal in size and attenuation. There are calcified splenic granulomas. Pancreas: Unremarkable. Adrenal glands: Unremarkable. Kidneys: The contrast enhanced kidneys are normal in size and without hydronephrosis. The kidneys enhance symmetrically. Numerous foci of cortical scarring are noted in the right kidney. Abdominal vasculature: The abdominal aorta is normal in course and caliber noting moderate atherosclerotic calcification. The right iliac vein is diminutive versus absent. There are collateral vessels within the groin/inguinal region bilaterally and in the right abdominal wall. This is unchanged in 2006. Bowel: There is moderate colonic diverticulosis. There is wall thickening with pericolonic inflammation involving the distal descending/proximal sigmoid colon consistent with acute diverticulitis. No organized fluid collection is seen to suggest abscess. No bowel obstruction is identified. Duodenal diverticula are incidentally noted. The appendix is well-visualized and normal Peritoneum: There is no intraperitoneal free air or abdominal ascites. Lymphadenopathy: None. Pelvic viscera: The bladder is distended but otherwise normal as visualized. Uterine fibroids are suggested. No adnexal lesion is seen. Skeletal structures: No lytic or blastic lesions are seen. IMPRESSION: 1. Moderate colonic diverticulosis with evidence of acute diverticulitis involving the distal descending/proximal sigmoid. 2. No intraperitoneal free air is identified and no organized fluid collection is seen to suggest abscess. 3. Hepatomegaly and hepatic steatosis. 4. Suspect uterine fibroids. 5. Additional findings as above. ACT 112: Negative or not required by law. Electronically signed by: Gaurav Fisher M.D. 02/09/2022 5:08 PM ECG Data Attestation: I personally reviewed and interpreted this ECG as follows: Indication: + abdominal pain Rate (beats per minute): 96 Rhythm: + normal sinus ECG Intervals/blocks: + Normal QRS and + Normal QT ECG [place]: + Normal ECG ST segments: + Nonspecific ST abnormalities MDM Narrative An order was placed for continuous cardiac monitoring. The monitor shows a rate of _86__ with _normal sinus__ rhythm. This is a 61-year-old female who presents emergency department due to concern for abdominal pain, vomiting and diarrhea. Patient concern for possible dehydration as well as unclear etiology of her abdominal pain. Patient thought initially this was perhaps due to severe reflux which she does have a history of. Labs are drawn and sent, and due to unclear etiology based on history, CT of the abdomen pelvis was ordered. Patient was found to have hypomagnesemia and was started on IV repletion. Patient also found to have hyperglycemia although no evidence of DKA. It was noted after her magnesium repletion had been started that the repletion bags are mixed in a dextrose containing solution which is likely why her glucose levels did not improve with subcu insulin initially. She was given additional insulin as a precaution. Patient was rehydrated as she felt dehydrated due to the GI losses over the last 2 days. Patient found to have uncomplicated diverticulitis, unfortunately due to significant allergy history, IV medications needed to be ordered. Case discussed with hospitalist for additional evaluation and management. Patient did report feeling markedly improved here, had no recurrent vomiting or diarrhea. Pain improved with additional medication. Impression & Plan Abdominal pain, Uterine fibroid, Diverticulitis, Hypomagnesemia, Nausea & vomiting, Diarrhea, Hyperglycemia, Dehydration Discharge Plan Visit Data Chief Complaint: Illness Stated Complaint: VOMITING, DIARRHEA, SORE THROAT, COUGH ED Provider: Virginia Wellington Discharge Problem: Abdominal pain, Uterine fibroid, Diverticulitis, Hypomagnesemia, Nausea & vomiting, Diarrhea, Hyperglycemia, Dehydration Patient Disposition: Admitted As Inpatient Discharge Instructions Interventions: ED Discharge Assessment Last Done: 02/09/22 21:59 Discharge Problem: Abdominal pain Qualifiers: Abdominal location: unspecified location Qualified Code(s): R10.9 - Unspecified abdominal pain Uterine fibroid Qualifiers: Uterine leiomyoma location: unspecified location Qualified Code(s): D25.9 - Leiomyoma of uterus, unspecified Nausea & vomiting Qualifiers: Vomiting type: unspecified Qualified Code(s): R11.2 - Nausea with vomiting, unspecified Diarrhea Qualifiers: Diarrhea type: unspecified type Qualified Code(s): R19.7 - Diarrhea, unspecified
[2022-02-09] MEDS ORDERED: METOCLOPRAMIDE HCL INJ 5 MG/ML 2 ML VIAL IV ONE (15:12)
[2022-02-09] MEDS ORDERED: FAMOTIDINE 20MG IV PUSH 20 MG/5 ML SYR IV STA (15:12)
[2022-02-09 15:37] LABS: Basophils # (auto) 0.02 K/uL (0-0.2); Basophils % (auto) 0.2 %; Eosinophils # (auto) 0.15 K/uL (0-0.5); Eosinophils % (auto) 1.7 %; Hemoglobin 12.6 g/dL (12.0-16.0); Immature Granulocytes # (auto) 0.01 K/uL (0.00-0.02); Immature Granulocytes % (auto) 0.1 %; Lymphocytes # (auto) 1.21 K/uL (1.2-3.4); Lymphocytes % (auto) 13.6 %; Mean Corpuscular Hemoglobin 28.4 pg (25-34); Mean Corpuscular Hgb Conc 33.2 g/dL (32-36); Mean Corpuscular Volume 85.6 fL (80-100); Mean Platelet Volume 10.2 fL (7.4-10.4); Monocytes # (auto) 0.47 K/uL (0.11-0.59); Monocytes % (auto) 5.3 %; Neutrophils # (auto) 7.01 K/uL (1.4-6.5); Neutrophils % (auto) 79.1 %; Platelet Count 263 K/uL (130-400); RDW Coefficient of Variation 14.5 % (11.5-14.5); RDW Standard Deviation 45.5 fL (36.4-46.3); Red Blood Count 4.44 M/uL (4.2-5.4); White Blood Count 8.87 K/uL (4.8-10.8)
[2022-02-09] MEDS: SODIUM CHLORIDE 0.9% 1000ML 1,000 ML IV SCH ×2 (15:50→19:38)
[2022-02-09 16:08] LABS: Albumin Level 3.9 gm/dl (3.4-5.0); BUN Creatinine Ratio 12.9 (10-20); Bilirubin,Total 0.4 mg/dl (0.2-1.0); Calcium 9.7 mg/dl (8.5-10.1); Creatinine Clr Calc Pharmacy 67.2 ml/min; Est GFR (Non-African American) 50.1 ml/min; Globulin 3.8 gm/dl (2.5-4.0); Magnesium 1.3 mg/dl (1.7-2.4); Potassium 4.8 mmol/L (3.5-5.1); Total Protein 7.7 gm/dl (6.0-8.3); Troponin I High Sensitivity 3.8 pg/ml (0-14)
[2022-02-09] MEDS ORDERED: NovoLIN-R INSULIN PER UNIT CHARGE SC STA ×2 (16:25→18:58)
[2022-02-09] MEDS ORDERED: ACETAMINOPHEN 1,000 MG/100 ML VIAL IV STA (16:29)
[2022-02-09] MEDS: MAGNESIUM SULFATE / D5W 1 GM/100 ML BAG IV SCH ×3 (16:45→23:55)
[2022-02-09] MEDS ORDERED: OPTIRAY 320 100ml IV ONE (16:55)
--- NOTE | 2022-02-09 17:10 | CT Scan Report ---
CT SCAN OF THE ABDOMEN AND PELVIS WITH IV CONTRAST CLINICAL HISTORY: Upper abdominal pain. Vomiting. COMPARISON STUDY: Abdominal CT dated 09/02/2007. Chest CT dated 01/14/2021. TECHNIQUE: Following the IV administration of 94 cc of Optiray 320, CT scan of the abdomen and pelvi s is performed from the lung bases to the proximal femora. Images are reviewed in the axial, sagittal , and coronal planes. IV contrast was administered without complication. A dose lowering technique wa s utilized adhering to the principles of ALARA. CT DOSE: 2013.00 mGy.cm FINDINGS: Lung bases: The heart is normal in size and without pericardial effusion. Calcified granulomas are se en at the left lung base. There are 2 right lower lobe pulmonary nodules measuring up to 3 mm seen on images #12 and #62. These are unchanged from the 01/14/[address] No airspace consolidation or pl eural effusion is identified. Liver: The contrast-enhanced liver is normal in enlarged, measuring 21.4 cm in craniocaudal length. T he liver demonstrates diffusely diminished attenuation consistent with hepatic steatosis. There is no intrahepatic biliary ductal dilatation. The hepatic veins and portal veins are patent. Gallbladder: Unremarkable. Spleen: Normal in size and attenuation. There are calcified splenic granulomas. Pancreas: Unremarkable. Adrenal glands: Unremarkable. Kidneys: The contrast enhanced kidneys are normal in size and without hydronephrosis. The kidneys enh ance symmetrically. Numerous foci of cortical scarring are noted in the right kidney. Abdominal vasculature: The abdominal aorta is normal in course and caliber noting moderate atheroscle rotic calcification. The right iliac vein is diminutive versus absent. There are collateral vessels w ithin the groin/inguinal region bilaterally and in the right abdominal wall. This is unchanged in 200 7. Bowel: There is moderate colonic diverticulosis. There is wall thickening with pericolonic inflammati on involving the distal descending/proximal sigmoid colon consistent with acute diverticulitis. No or ganized fluid collection is seen to suggest abscess. No bowel obstruction is identified. Duodenal div erticula are incidentally noted. The appendix is well-visualized and normal Peritoneum: There is no intraperitoneal free air or abdominal ascites. Lymphadenopathy: None. Pelvic viscera: The bladder is distended but otherwise normal as visualized. Uterine fibroids are sug gested. No adnexal lesion is seen. Skeletal structures: No lytic or blastic lesions are seen. IMPRESSION: 1. Moderate colonic diverticulosis with evidence of acute diverticulitis involving the distal descend ing/proximal sigmoid. 2. No intraperitoneal free air is identified and no organized fluid collection is seen to suggest abs cess. 3. Hepatomegaly and hepatic steatosis. 4. Suspect uterine fibroids. 5. Additional findings as above. ACT 112: Negative or not required by law. Electronically signed by: Gaurav Fisher M.D. 02/09/2022 5:08 PM
[2022-02-09] MEDS ORDERED: ONDANSETRON INJ 2 MG/ML 2 ML VIAL IV STA (18:58)
[2022-02-09] MEDS ORDERED: ERTAPENEM SODIUM 10 ML IV STA (19:17)
--- NOTE | 2022-02-09 19:57 | History & Physical Report ---
Date of Service February 09, 2022 Assessment & Plan (1) Diverticulitis: Plan: - Seen on CT A/P without perforation or abscess. - Given multiple antibiotic allergies, patient was started on ertapenem in ED, will continue this. - NPO, IVF, antiemetics and IV pain medications. (2) Ctuar-sr-joulspt kidney injury: Plan: - In setting of decreased PO intake 2/2 abdominal pain and nausea/vomiting. - Cr 1.16, baseline ~0.9 - 1.0. - Will receive IVF while NPO, continue to monitor renal function on BMP. - Hold nephrotoxic agents, renally dose all medications. (3) Hypomagnesemia: Plan: - 1.3 in ED, replete and recheck in AM. (4) Diabetes mellitus type 2 with complications: Plan: - Home regimen consists of Lantus 20 units b.i.d., about 30 units of short- acting insulin daily, metformin 1000 mg b.i.d., Trulicity 3.0 mg/day. - Hold oral agents. - Sugar in ED 376, received 14 units of SQ regular insulin in ED. - 01/01/2022: A1c 8.7, FBS 189 - Patient has Dexcom machine, reports that readings have been erratic at home over the past few days, reading in the 300s and then several minutes later down to 90s without he taking any insulin. She has been has been hesitant to take her insulin because of this. - Due to her NPO status, will hold meal time short acting insulin, reduce basal does by 25% to give 15 units glargine BID, with SSI as needed. - Accuchecks q6h while NPO. - Continue pregabalin for neuropathy. (5) Obstructive sleep apnea: Plan: - CPAP at night. (6) Hypothyroidism: Plan: - Continue levothyroxine 20 mcg daily. (7) Hypertension: Plan: - Continue metoprolol 12.5 twice daily. - Hold losartan now due to OLENA. (8) Hyperlipidemia: Plan: - Continue atorvastatin 80 mg daily. (9) GERD (gastroesophageal reflux disease): Plan: - Continue PPI and Pepcid. (10) Anxiety and depression: Plan: - Continue amitriptyline 25 mg at night. - Continue Seroquel 50 mg twice daily and 400 mg at night. - Continue Trintellix 20 mg twice daily. - Continue clonazepam 0.5 mg twice daily (11) Asthma: Plan: - Continue Advair daily, with albuterol as needed. (12) Restless legs syndrome: Plan: - Continue ropinirole 0.5 mg daily. (13) Hepatic steatosis: Plan: - Noted on CT A/P, LFTs wnl. No RUQ pain. (14) Trigeminal neuralgia: Plan: - Continue baclofen 20 mg daily as needed. (15) Hidradenitis suppurativa: Plan: - Severe, Stage III in the right groin/right labia/left buttock/perineum. - Continue Humira 40 mg weekly injections. - Continue spironolactone 100 mg daily. (16) History of DVT (deep vein thrombosis): Plan: - RLE DVT 25 years ago, has been on Plavix ever since for this. Plan: - Admit to med/tele. - SCDs, Lovenox for DVT ppx. - DNR/DNI. History of Present Illness Chief Complaint: persistent abdominal pain x 8 days Primary Care Provider: Ethan Karimi MD Patient is a 61-year-old female with past medical history significant for hypertension, hyperlipidemia, DM2, delayed gastric emptying, CKD, VERA, asthma, anxiety, depression, GERD, RLS, and hypothyroidism who presents today with persistent abdominal pain. Last Wednesday, 01/31, she developed abdominal pain around her umbilicus with burning sensation into her chest. [place] consistent with acid reflux, so she took her PPI and Pepcid, as well as an OTC acid reflux medication without resolution of her symptoms. It persisted for several days, however never got worse and never radiated beyond the area surrounding her umbilicus. She did develop nausea and several episodes of nonbloody emesis after several days and had a hard time keeping PO intake down, but attempted to eat yogurt and drink tea to ease her stomach, however could not keep these down. She has had some ongoing fever and chills over the past few days, feels generally weak and dehydrated, and still has abdominal pain that she rates 4 out of 10. She initially had trouble with stools when her abdominal pain initially developed last Wednesday, and had episodes of "watery" diarrhea last week, but has not had a BM in 4-5 days, which she attributes to not eating or drinking much. She wears a Dexcom and reports her sugars have been erratic at home, in the 300s and then several minutes later without having taken any insulin, it goes down to 90s, therefore she has been apprehensive about taking insulin. Denies chest pain, palpitations shortness of breath, hematemesis, hematochezia, melena. In ED, she is hemodynamically stable, vital signs within normal limits and stab le. Labs significant for sodium of 133, glucose 376, magnesium 1.3, alk phos 128. CT A/P showed moderate colonic diverticulosis with evidence of acute diverticulitis involving the distal descending/proximal sigmoid without intraperitoneal free air or organized fluid collection suggestive of abscess. Hepatomegaly and steatosis also noted, as well as uterine fibroids. Patient received ertapenem, anti-emetics, 14 units SQ regular insulin, magnesium, and IVF in ED. Hospitalist service was consulted for further evaluation and admission. Allergies Allergy/AdvReac Type Severity Reaction Status Date / Time adhesive Allergy Unknown "eats my Verified 02/09/22 19:56 skin" Aminoglycosides Allergy Unknown Hives Verified 02/09/22 19:56 azithromycin Allergy Unknown Hives Verified 02/09/22 19:56 bacitracin Allergy Unknown RASH Verified 02/09/22 19:56 Cephalosporins Allergy Unknown Hives Verified 02/09/22 19:56 ciprofloxacin Allergy Unknown EYE Verified 02/09/22 19:56 SWELLING, "burned my eyelids" duloxetine Allergy Unknown slurred Verified 02/09/22 19:56 speech/memory loss/ "like I was drunk" erythromycin base Allergy Unknown HIVES Verified 02/09/22 19:56 hydroxyzine Allergy Unknown PT DOESN'T Verified 02/09/22 19:56 REMEMBER REACTION minocycline Allergy Unknown HIVES Verified 02/09/22 19:56 mupirocin Allergy Unknown RASH Verified 02/09/22 19:56 neomycin Allergy Unknown RASH Verified 02/09/22 19:56 Penicillins Allergy Unknown HIVES Verified 02/09/22 19:56 polymyxin B Allergy Unknown RASH Verified 02/09/22 19:56 Quinolones Allergy Unknown Hives Verified 02/09/22 19:56 tetracycline Allergy Unknown HIVES Verified 02/09/22 19:56 aspirin AdvReac Unknown NOSEBLEEDS- Verified 02/09/22 19:56 CAN TAKE IBUPROFEN topiramate AdvReac Unknown SOB,DIZZINE Verified 02/09/22 19:56 SS Home Medications Medication Instructions Recorded Confirmed Type dexlansoprazole 60 mg 60 mg PO QAM #90 cap 01/24/21 02/09/22 Rx capsule,biphase delayed release (Dexilant) docusate sodium 100 mg tablet 100 mg PO DAILY 02/28/21 02/09/22 History (Stool Softener) Incentive Spirometer #1 ea 03/14/21 01/26/22 Rx blood-glucose meter,continuous 06/17/21 01/26/22 History (Dexcom G6 Spray Gunner) blood-glucose sensor (Dexcom G6 06/17/21 01/26/22 History Sensor) blood-glucose transmitter (Dexcom 06/17/21 01/26/22 History G6 Transmitter) albuterol sulfate 90 mcg/actuation 1 - 2 puff INHALATION Q4H PRN #8 gm 06/24/21 02/09/22 Rx aerosol inhaler (Ventolin HFA) fluticasone propionate 115 2 puff INHALATION BID 07/04/21 02/09/22 History mcg-salmeterol 21 mcg/actuation HFA inhaler (Advair HFA) metoprolol tartrate 25 mg tablet 12.5 mg PO BID #30 tab 08/22/21 02/09/22 Rx clopidogrel 75 mg tablet 75 mg PO HS #30 tab 09/09/21 02/09/22 Rx famotidine 20 mg tablet 20 mg PO BID 09/29/21 02/09/22 History levothyroxine 200 mcg tablet 200 mcg PO QAM 09/29/21 02/09/22 History losartan 50 mg tablet 50 mg PO DAILY 09/29/21 02/09/22 History prazosin 5 mg capsule 5 mg PO DAILY 09/29/21 02/09/22 History vortioxetine 20 mg tablet 20 mg PO BID 09/29/21 02/09/22 History (Trintellix) clonazepam 0.5 mg tablet 0.5 mg PO BID tab 10/22/21 02/09/22 History insulin aspart U-100 100 unit/mL 7 unit SUBCUT TID ml 10/22/21 02/09/22 History (3 mL) subcutaneous pen (Novolog Flexpen U-100 Insulin aspart) insulin glargine 100 unit/mL (3 20 unit SUBCUT BID ml 10/22/21 02/09/22 History mL) subcutaneous pen (Lantus Solostar U-100 Insulin) quetiapine 50 mg tablet (Seroquel) 50 mg PO BID tab 10/22/21 02/09/22 History ropinirole 0.5 mg tablet 0.5 mg PO DAILY 10/22/21 02/09/22 History atorvastatin 80 mg tablet 80 mg PO HS #90 tab 11/04/21 02/09/22 Rx quetiapine 400 mg tablet 400 mg PO HS #30 tab 12/18/21 02/09/22 Rx pregabalin 100 mg capsule 100 mg PO BID #60 cap 01/05/22 02/09/22 Rx amitriptyline 25 mg tablet 25 mg PO HS tab 01/06/22 02/09/22 History spironolactone 100 mg tablet 100 mg PO DAILY #30 tab 01/06/22 02/09/22 Rx dulaglutide 3 mg/0.5 mL 3 mg SUBCUT WK 90 Days #45 ml 01/07/22 02/09/22 Rx subcutaneous pen injector baclofen 20 mg tablet 20 mg PO DAILY tab 01/21/22 02/09/22 History adalimumab 40 mg/0.4 mL See Rx Instructions SUBCUT 01/22/22 02/09/22 Rx subcutaneous pen kit .COMPLEX #4 ea flurbiprofen 100 mg tablet 50 mg PO BID 02/09/22 02/09/22 History metformin 500 mg tablet,extended 1,000 mg PO BID 02/09/22 02/09/22 History release 24 hr Past Med/Surg History Medical History Deep vein thrombosis reason for plavix; 25 years ago RLE Degenerative disc disease Enlarged heart per Pro--no medication coordinator Hidradenitis suppurativa History of COVID-19 09/2020; body aches, fatigue, decreased appetite, loss of taste/smell, joint pain, BLLE tingling, cough, sob, brain fog; w lingering cough, sob, fatigue, brain fog Eaetyop-Diwqtqfzy-Larxg syndrome Morbid obesity with BMI of 50.0-59.9, adult On home oxygen therapy 7L via CPAP at night Osteopenia Personal history of diabetic foot ulcer Psychiatric care MAJOR ANXIETY AND DEPRESSION OVER LAST YR, USES CRISIS CENTER NEEDED (LAST 3-4 MON AGO) , FOLLOWS THERAPIST DIRECTED Pulmonary nodule Sleep apnea cpap with 7L of oxygen SOB (shortness of breath) on exertion FOLLOWING PULMONOLOGY - MOST RECENT VISIT LAST MONTH - NO DX AT CURRENT ? 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 Surgical History H/O ligation of vein RIGHT LEG History of bilateral cataract extraction History of colonoscopy with polypectomy History of esophagogastroduodenoscopy (EGD) History of tooth extraction History of umbilical hernia repair Status post trigger finger release x2---1 on each thumb Family History Aunt Breast cancer Uncle Family hx of colon cancer Colorectal cancer Mother Family history of diabetes mellitus Family history of reaction to anesthesia had difficulty waking and her "oxygen level would drop" Stroke Diabetes Heart disease Hypertension Father Prostate cancer Cancer Grandfather (Maternal) Myocardial infarction Sister Family history of diabetes mellitus Family history of reaction to anesthesia had difficulty waking and her "oxygen level would drop" Diabetes Hypertension Family/Other Family hx of colon cancer cousin Brother Family history of reaction to anesthesia HARD TIME COMING OUT OF ANESTHETIC Diabetes Denies family history of Ovarian cancer Uterine cancer Social History Smoking Status: Never smoker Second Hand Exposure: Yes (sister smokes); Hx Alcohol Use: No Hx Substance Use: No Preferred Language: Latvian Communication Ability: Effective Visual Impairment: No Limitations Hearing Ability: Normal Statistics Intern Required: No Beliefs That Will Affect Care: None marital status: Single Current Living Situation: Alone Current Living Situation Comment: [facility] current occupational status: disabled How many Children do You have: 0 Other Information That Helps Us Care for You: No Feels Safe at Home: Yes Safety Concerns: Feels Safe At This Time during the past year weight has: decreased > 10 lbs Seatbelt Use: always Sunscreen Use: Yes Assistive Devices: CPAP and Walker Review of Systems Review of Systems: All systems reviewed & are unremarkable except as noted in HPI & below Physical Exam Physical Exam: General: awake, alert, no apparent distress Head: Normocephalic, atraumatic ENT: PERRL, EOMI, no pharyngeal exudate, mucous membranes moist Chest: Clear to auscultation, on room air, no adventitious breath sounds Cardiac: Regular rate and rhythm, no murmur, no JVD, normal peripheral pulses, good capillary refill Abdominal: TTP in LUQ and LLQ and around umbilicus without rebound or guarding; NABS x 4 quadrants, soft Extremities: Normal inspection, no peripheral edema or erythema, calfs nontender to palpation Psych: Normal mood and affect Neuro: AAO x 3, strength intact bilaterally and rated 5/5, no motor deficits, speech is clear, no peripheral sensory deficits Skin: no rash or erythema Results & Data Results & Data ([facility]) Vital Signs (Past 12 Hours) Vital Signs Temp Pulse Pulse Resp BP BP Pulse Ox 02/09/22 19:00 86 21 134/81 98 02/09/22 17:00 92 H 15 134/77 99 02/09/22 15:49 99 H 20 129/77 98 02/09/22 14:24 36.2 C L 110 H 20 123/73 98 Laboratory Results Abnormal lab results 02/09/22 02/09/22 02/09/22 Range/Units 15:24 15:24 18:54 Neut # (Auto) 7.01 H (1.4-6.5) K/uL Sodium 133 L (136-145) mmol/L Glucose 376 H* (70-99(Fasting)) mg/dl POC Glucose 360 H* (70-99) mg/dl Magnesium 1.3 L (1.7-2.4) mg/dl AST 10 L (13-39) U/L Alkaline Phosphatase 128 H (34-104) U/L Diagnostic Findings Abdomen/Pelvis CT 02/09/22 16:28 CT SCAN OF THE ABDOMEN AND PELVIS WITH IV CONTRAST CLINICAL HISTORY: Upper abdominal pain. Vomiting. COMPARISON STUDY: Abdominal CT dated 09/02/2007. Chest CT dated 01/14/2021. TECHNIQUE: Following the IV administration of 94 cc of Optiray 320, CT scan of the abdomen and pelvis is performed from the lung bases to the proximal femora. Images are reviewed in the axial, sagittal, and coronal planes. IV contrast was administered without complication. A dose lowering technique was utilized adhering to the principles of ALA. CT DOSE: 2013.00 mGy.cm FINDINGS: Lung bases: The heart is normal in size and without pericardial effusion. Calcified granulomas are seen at the left lung base. There are 2 right lower lobe pulmonary nodules measuring up to 3 mm seen on images #12 and #62. These are unchanged from the 01/14/[address] No airspace consolidation or pleural effusion is identified. Liver: The contrast-enhanced liver is normal in enlarged, measuring 21.4 cm in craniocaudal length. The liver demonstrates diffusely diminished attenuation consistent with hepatic steatosis. There is no intrahepatic biliary ductal dilatation. The hepatic veins and portal veins are patent. Gallbladder: Unremarkable. Spleen: Normal in size and attenuation. There are calcified splenic granulomas. Pancreas: Unremarkable. Adrenal glands: Unremarkable. Kidneys: The contrast enhanced kidneys are normal in size and without hydronephrosis. The kidneys enhance symmetrically. Numerous foci of cortical scarring are noted in the right kidney. Abdominal vasculature: The abdominal aorta is normal in course and caliber noting moderate atherosclerotic calcification. The right iliac vein is diminu tive versus absent. There are collateral vessels within the groin/inguinal region bilaterally and in the right abdominal wall. This is unchanged in 2007. Bowel: There is moderate colonic diverticulosis. There is wall thickening with pericolonic inflammation involving the distal descending/proximal sigmoid colon consistent with acute diverticulitis. No organized fluid collection is seen to suggest abscess. No bowel obstruction is identified. Duodenal diverticula are incidentally noted. The appendix is well-visualized and normal Peritoneum: There is no intraperitoneal free air or abdominal ascites. Lymphadenopathy: None. Pelvic viscera: The bladder is distended but otherwise normal as visualized. Uterine fibroids are suggested. No adnexal lesion is seen. Skeletal structures: No lytic or blastic lesions are seen. IMPRESSION: 1. Moderate colonic diverticulosis with evidence of acute diverticulitis involving the distal descending/proximal sigmoid. 2. No intraperitoneal free air is identified and no organized fluid collection is seen to suggest abscess. 3. Hepatomegaly and hepatic steatosis. 4. Suspect uterine fibroids. 5. Additional findings as above. ACT 112: Negative or not required by law. Electronically signed by: Gaurav Fisher M.D. 02/09/2022 5:08 PM ECG Additional Comments: Normal sinus rhythm Possible Anterior infarct , age undetermined Abnormal ECG When compared with ECG of 28-JUN-2019 21:36, No significant change was found. Code Status & VTE Plan Code Status DNR/DNI. Supervising Physician Co-Signing Physician Notes Attending addendum: I have physically seen this patient, have supervised the GRACE's activities, and agree with the H&P unless as otherwise noted. Assessment and Plan: Acute distal descending/proximal sigmoid diverticulitis- No perforation or abscess noted on CT N.p.o. Ertapenem IV as noted Zofran 4 mg IV every 6 hours as needed NSS at 80 mils per hour IV pain control as noted Hypomagnesemia- IV supplementation Follow serial BMP and magnesium levels Diabetes mellitus- Reduce Lantus from 20 to 15 units subcu twice daily Holding with metformin, Trulicity and routine short acting insulin Check hemoglobin A1c Placed in Accu-Cheks before meals and at bedtime with NovoLog coverage per sliding scale Remaining orders and notations as noted PG Care Time/CCT Total # of Minutes Spent Total Time Spent with Patient: Total time spent is greater than 50% in coordination of care (as documented) at patient's floor/unit and/or counseling patient: Coding Level of Care Code 80719 Initial Inpt Care Lvl 3 Diagnoses Diverticulitis K57.92 Otxhj-vc-zqoyits kidney injury N17.9; N18.9 Obstructive sleep apnea G47.33 Hypothyroidism E03.9 Hypertension I10 Hypertension type: unspecified Hyperlipidemia E78.5 GERD (gastroesophageal reflux disease) K21.9 Diabetes mellitus type 2 with complications E11.8 Anxiety and depression F41.9; F32.A Asthma J45.20 Asthma complication type: uncomplicated Asthma persistence: intermittent Asthma severity: mild Restless legs syndrome G25.81 Hepatic steatosis K76.0 Trigeminal neuralgia G50.0 Hidradenitis suppurativa L73.2 Hypomagnesemia E83.42 History of DVT (deep vein thrombosis) Z86.718 (1) Hypertension Hypertension type: unspecified Qualified Code(s): I10 - Essential (primary) hypertension (2) Asthma Asthma complication type: uncomplicated Asthma persistence: intermittent Asthma severity: mild Qualified Code(s): J45.20 - Mild intermittent asthma, uncomplicated
[2022-02-09] MEDS ORDERED: CARBOHYDRATES FOR HYPOGLYCEMIA PO PRN (22:29)
[2022-02-09] MEDS ORDERED: GLUCOSE 40% GEL 15 GM TUBE PO PRN (22:29)
[2022-02-09] MEDS ORDERED: ALBUTEROL HFA 8 GM INHALER INH PRN (22:29)
[2022-02-09] MEDS ORDERED: GLUCOSE 10 TABS/TUBE PO PRN (22:29)
[2022-02-09] MEDS ORDERED: ONDANSETRON INJ 2 MG/ML 2 ML VIAL IV PRN (22:29)
[2022-02-09] MEDS ORDERED: ACETAMINOPHEN 325 MG TAB PO PRN (22:29)
[2022-02-09] MEDS ORDERED: POLYETHYLENE (MIRALAX) 17 GM PACK PO PRN (22:29)
[2022-02-09] MEDS ORDERED: GLUCAGON FOR INJ 1 MG VIAL SQ PRN (22:29)
[2022-02-09] MEDS ORDERED: DEXTROSE 50% 50 ML SYRINGE IV PRN (22:29)
[2022-02-09] MEDS: LACTATED RINGER'S 1,000 ML IV SCH (23:53)
[2022-02-10] MEDS: INSULIN ASPART PER UNIT SC SCH ×4 (00:23→17:50)
[2022-02-10] MEDS: INSULIN GLARGINE SOLOSTAR 100 UNITS/ML 3 ML PEN SQ SCH ×3 (00:24→22:03)
[2022-02-10] MEDS: PREGABALIN 100 MG CAP PO SCH ×3 (00:25→21:58)
[2022-02-10] MEDS: clonazePAM 0.5 MG TAB PO SCH ×3 (00:25→21:58)
[2022-02-10] MEDS: AMITRIPTYLINE HCL 25 MG TAB PO SCH ×2 (00:25→22:01)
[2022-02-10] MEDS: CLOPIDOGREL BISULFATE 75 MG TAB PO SCH ×2 (00:26→22:02)
[2022-02-10] MEDS: ATORVASTATIN 40 MG TAB PO SCH ×2 (00:26→22:02)
[2022-02-10] MEDS: FAMOTIDINE 20 MG TAB PO SCH ×3 (00:26→22:02)
[2022-02-10] MEDS: METOPROLOL TARTRATE 25 MG TAB PO SCH ×3 (00:27→21:58)
[2022-02-10] MEDS: QUEtiapine FUMARATE 200 MG TAB PO SCH ×2 (00:28→22:01)
[2022-02-10] MEDS: MAGNESIUM SULFATE / D5W 1 GM/100 ML BAG IV SCH ×2 (01:50→03:53)
[2022-02-10] MEDS: LEVOTHYROXINE SODIUM 200 MCG TABLET PO SCH (06:04)
--- NOTE | 2022-02-10 07:00 | Hospitalist Progress Note ---
Date of Service February 10, 2022 Assessment & Plan (1) Diverticulitis: Plan: 61 y/o F w/ hypertension, hyperlipidemia, DM2, delayed gastric emptying, CKD, VERA, asthma, anxiety, depression, GERD, RLS, and hypothyroidismwho presents w/ acute uncomplicated diverticulitis. - Seen on CT A/P without perforation or abscess. - Given multiple antibiotic allergies, patient was started on ertapenem in ED, will continue this. - Continue NPO, IVF, antiemetics - Continue Ertapenem. Upon dispo home, PO bactrim and flagyl. (2) Bdbac-ov-shyxfic kidney injury: Plan: - resolved (3) Hypomagnesemia: Plan: - resolved (4) Diabetes mellitus type 2 with complications: Plan: - hold home regimen - SSI (5) Obstructive sleep apnea: Plan: - CPAP at night (6) Hypothyroidism: Plan: - Continue levothyroxine 20 mcg daily. (7) Hypertension: Plan: - Continue metoprolol 12.5 twice daily. - Hold losartan, resume on discharge home. BPs currently at goal. (8) Hyperlipidemia: Plan: - Continue atorvastatin 80 mg daily. (9) GERD (gastroesophageal reflux disease): Plan: - Continue PPI and Pepcid. (10) Anxiety and depression: Plan: - Continue amitriptyline 25 mg at night. - Continue Seroquel 50 mg twice daily and 400 mg at night. - Continue Trintellix 20 mg twice daily. - Continue clonazepam 0.5 mg twice daily (11) Asthma: Plan: - Continue Advair daily, with albuterol as needed. (12) Restless legs syndrome: Plan: - Continue ropinirole 0.5 mg daily. (13) Hepatic steatosis: Plan: - Noted on CT A/P, LFTs wnl. No RUQ pain. (14) Trigeminal neuralgia: Plan: - Continue baclofen 20 mg daily as needed. (15) Hidradenitis suppurativa: Plan: - Severe, Stage III in the right groin/right labia/left buttock/perineum. - Continue Humira 40 mg weekly injections. - Continue spironolactone 100 mg daily. (16) History of DVT (deep vein thrombosis): Plan: - RLE DVT 25 years ago, has been on Plavix ever since for this. Plan: - NPO. LR 80/hr - Dispo: downgraded to med/surg - SCDs, Lovenox for DVT ppx. - DNR/DNI. Admission and Anticipated Discharge Date Admission Date: February 09, 2022 Supervising Physician Co-Signing Physician Notes I personally examined the patient and verified all ortiz points of history and exam, discussed case, and agree with decision making with Dr Raciel feeling better than when she came in. pain improving some vitals noted nad heent nc at mmm breathing unlabored no accessory muscles good effort skin no rashes no pallor or icterus abd soft mild distention mild/mod tenderness mostly mid/LLQ no guarding/rebound/rigidity acute diverticulitis - no abscess. continue ertapenem. serial exams. time. otheriwse as above Subjective 3/10 L abd/side pain. Intermittent. Denies other ROS. No fever or chills. Denies prior hx of diverticulitis. Endorses eating a lot of fruit recently. Denies eating nuts. Review of Systems Review of Systems: All systems reviewed & are unremarkable except as noted in HPI & below Physical Exam Physical Exam: General: Fully A&O. NAD. Cooperative. HEENT: Atraumatic, normocephalic. EOMI Pulm: CTAB anteriorly and laterally. -wheezes, -rales, -rhonchi. No respiratory distress. Wearing home cpap device. Cardiac: RRR, -mrg. Abdominal: Nontender, nondistended, soft. Integ: Mild congenital discolorations of RLE. Results & Data Results & Data ([facility]) Vital Signs (Past 12 Hours) Vital Signs Temp Pulse Pulse Resp BP BP Pulse Ox 02/10/22 03:50 36.3 C L 70 18 108/66 97 02/10/22 03:00 70 17 97 02/10/22 01:40 92 H 02/09/22 23:00 86 23 99 02/09/22 22:53 36.5 C 86 18 141/63 H 98 02/09/22 21:59 83 22 123/53 L 97 02/09/22 21:00 90 24 110/75 99 02/09/22 20:00 94 H 24 112/79 98 02/09/22 19:00 86 21 134/81 98 Resident Activity Tracking Resident Involvement: Resident Care Provided Care Provided: Adult Hospital Medicine (1) Hypertension Hypertension type: unspecified Qualified Code(s): I10 - Essential (primary) hypertension (2) Asthma Asthma complication type: uncomplicated Asthma persistence: intermittent Asthma severity: mild Qualified Code(s): J45.20 - Mild intermittent asthma, uncomplicated
[2022-02-10 07:48] LABS: Basophils # (auto) 0.02 K/uL (0-0.2); Basophils % (auto) 0.3 %; Eosinophils # (auto) 0.24 K/uL (0-0.5); Eosinophils % (auto) 3.2 %; Hematocrit (blood only) 34.9 % (37-47); Hemoglobin 11.5 g/dL (12.0-16.0); Lymphocytes # (auto) 1.93 K/uL (1.2-3.4); Lymphocytes % (auto) 25.8 %; Mean Corpuscular Hemoglobin 28.8 pg (25-34); Mean Corpuscular Volume 87.3 fL (80-100); Mean Platelet Volume 10.2 fL (7.4-10.4); Monocytes # (auto) 0.58 K/uL (0.11-0.59); Monocytes % (auto) 7.8 %; Neutrophils % (auto) 62.9 %; Platelet Count 244 K/uL (130-400); RDW Coefficient of Variation 14.7 % (11.5-14.5); RDW Standard Deviation 47.5 fL (36.4-46.3); White Blood Count 7.47 K/uL (4.8-10.8)
[2022-02-10 09:14] LABS: BUN Creatinine Ratio 12.5 (10-20); Calcium 9.1 mg/dl (8.5-10.1); Creatinine Clr Calc Pharmacy 85.1 ml/min; Est GFR (Non-African American) 69.9 ml/min; Magnesium 2.2 mg/dl (1.7-2.4); Potassium 3.9 mmol/L (3.5-5.1)
[2022-02-10] MEDS: PRAZOSIN HCL 1 MG CAP PO SCH (09:19)
[2022-02-10] MEDS: QUEtiapine FUMARATE 25 MG TABLET PO SCH ×2 (09:19→14:25)
[2022-02-10] MEDS: ENOXAPARIN INJ 40 MG/0.4 ML SYR SQ SCH ×2 (09:19→22:01)
[2022-02-10] MEDS: DOCUSATE SODIUM 100 MG CAP PO SCH (09:20)
[2022-02-10] MEDS: BACLOFEN 20 MG TAB PO SCH (09:20)
[2022-02-10] MEDS: SPIRONOLACTONE 100 MG TAB PO SCH (09:20)
[2022-02-10] MEDS: PANTOprazole 40 MG TAB PO SCH (09:20)
[2022-02-10] MEDS: rOPINIRole HCL 0.25 MG TABLET PO SCH (09:20)
[2022-02-10] MEDS: FLUTICASONE/VILANTEROL 200/25MCG 14 PUFFS/INHALER INH SCH (09:22)
[2022-02-10] MEDS: LACTATED RINGER'S 1,000 ML IV SCH (12:38)
[2022-02-10 15:14] LABS: Appearance Urine Clear (Clear); Bacteria Urine Automated Negative (Negative); Bilirubin Urine Negative (Negative); Blood Urine Negative (Negative); Color Urine Yellow; Epithelial Cell Urine Auto >30 /lpf (0-5); Glucose Urine UA Trace (Negative); Ketones Urine Negative (Negative); Leukocyte Esterase Urine Trace (Negative); Nitrite Urine Negative (Negative); Protein Urine Negative (Negative); RBC Urine Automated 0-4 /hpf (0-4); Specific Gravity Urine 1.019 (1.000-1.030); Urobilinogen Urine Negative (Negative)
--- NOTE | 2022-02-10 15:35 | Billing Data ---
Date of Service February 10, 2022 Coding Level of Care Code 47175 Subseq Hosp Care Lvl 3
[2022-02-10] MEDS: ERTAPENEM SODIUM 1,000 MG in SYRINGE 0 ML IV SCH (22:06)
[2022-02-11] MEDS: INSULIN ASPART PER UNIT SC SCH ×6 (00:40→21:08)
[2022-02-11] MEDS: LACTATED RINGER'S 1,000 ML IV SCH ×2 (03:07→14:54)
[2022-02-11] MEDS: LEVOTHYROXINE SODIUM 200 MCG TABLET PO SCH (05:54)
[2022-02-11 07:31] LABS: Basophils # (auto) 0.02 K/uL (0-0.2); Basophils % (auto) 0.2 %; Eosinophils # (auto) 0.22 K/uL (0-0.5); Eosinophils % (auto) 2.5 %; Hemoglobin 11.7 g/dL (12.0-16.0); Immature Granulocytes # (auto) 0.03 K/uL (0.00-0.02); Immature Granulocytes % (auto) 0.3 %; Lymphocytes % (auto) 23.8 %; Mean Corpuscular Hgb Conc 32.5 g/dL (32-36); Mean Corpuscular Volume 86.1 fL (80-100); Mean Platelet Volume 9.8 fL (7.4-10.4); Monocytes % (auto) 6.8 %; Neutrophils # (auto) 5.85 K/uL (1.4-6.5); Neutrophils % (auto) 66.4 %; Platelet Count 262 K/uL (130-400); RDW Coefficient of Variation 14.8 % (11.5-14.5); RDW Standard Deviation 46.4 fL (36.4-46.3); Red Blood Count 4.18 M/uL (4.2-5.4); White Blood Count 8.82 K/uL (4.8-10.8)
[2022-02-11 07:45] LABS: BUN Creatinine Ratio 8.5 (10-20); Calcium 9.2 mg/dl (8.5-10.1); Est GFR (African American) 74.8 ml/min; Est GFR (Non-African American) 64.6 ml/min; Potassium 4.1 mmol/L (3.5-5.1)
[2022-02-11] MEDS: FAMOTIDINE 20 MG TAB PO SCH ×2 (07:46→20:50)
[2022-02-11] MEDS: PANTOprazole 40 MG TAB PO SCH (07:46)
[2022-02-11] MEDS: rOPINIRole HCL 0.25 MG TABLET PO SCH (07:46)
[2022-02-11] MEDS: PRAZOSIN HCL 1 MG CAP PO SCH (07:46)
[2022-02-11] MEDS: QUEtiapine FUMARATE 25 MG TABLET PO SCH ×2 (07:46→14:30)
[2022-02-11] MEDS: DOCUSATE SODIUM 100 MG CAP PO SCH ×2 (07:47→20:51)
[2022-02-11] MEDS: SPIRONOLACTONE 100 MG TAB PO SCH (07:47)
[2022-02-11] MEDS: METOPROLOL TARTRATE 25 MG TAB PO SCH ×2 (07:47→20:49)
[2022-02-11] MEDS: FLUTICASONE/VILANTEROL 200/25MCG 14 PUFFS/INHALER INH SCH (07:48)
[2022-02-11] MEDS: BACLOFEN 20 MG TAB PO SCH (07:48)
[2022-02-11] MEDS: ENOXAPARIN INJ 40 MG/0.4 ML SYR SQ SCH ×2 (07:48→20:57)
[2022-02-11] MEDS: PREGABALIN 100 MG CAP PO SCH ×2 (08:09→20:48)
[2022-02-11] MEDS: clonazePAM 0.5 MG TAB PO SCH ×2 (08:09→20:48)
[2022-02-11] MEDS ORDERED: Nursing to Pharmacy Communication SCH (08:30)
[2022-02-11] MEDS: INSULIN GLARGINE SOLOSTAR 100 UNITS/ML 3 ML PEN SQ SCH ×2 (08:46→20:56)
--- NOTE | 2022-02-11 13:31 | Discharge Summary ---
Date of Service February 11, 2022 Admission HPI Per Admitting Provider Patient is a 61-year-old female with past medical history significant for hypertension, hyperlipidemia, DM2, delayed gastric emptying, CKD, VERA, asthma, anxiety, depression, GERD, RLS, and hypothyroidism who presents today with persistent abdominal pain. Last Wednesday, 01/31, she developed abdominal pain around her umbilicus with burning sensation into her chest. [place] consistent with acid reflux, so she took her PPI and Pepcid, as well as an OTC acid reflux medication without resolution of her symptoms. It persisted for several days, however never got worse and never radiated beyond the area surrounding her umbilicus. She did develop nausea and several episodes of nonbloody emesis after several days and had a hard time keeping PO intake down, but attempted to eat yogurt and drink tea to ease her stomach, however could not keep these down. She has had some ongoing fever and chills over the past few days, feels generally weak and dehydrated, and still has abdominal pain that she rates 4 out of 10. She initially had trouble with stools when her abdominal pain initially developed last Wednesday, and had episodes of "watery" diarrhea last week, but has not had a BM in 4-5 days, which she attributes to not eating or drinking much. She wears a Dexcom and reports her sugars have been erratic at home, in the 300s and then several minutes later without having taken any insulin, it goes down to 90s, therefore she has been apprehensive about taking insulin. Denies chest pain, palpitations shortness of breath, hematemesis, hematochezia, melena. In ED, she is hemodynamically stable, vital signs within normal limits and stable. Labs significant for sodium of 133, glucose 376, magnesium 1.3, alk phos 128. CT A/P showed moderate colonic diverticulosis with evidence of acute diverticulitis involving the distal descending/proximal sigmoid without intraperitoneal free air or organized fluid collection suggestive of abscess. Hepatomegaly and steatosis also noted, as well as uterine fibroids. Patient received ertapenem, anti-emetics, 14 units SQ regular insulin, magnesium, and IVF in ED. Hospitalist service was consulted for further evaluation and admission. Admission Exam Per Admitting Provider General: awake, alert, no apparent distress Head: Normocephalic, atraumatic ENT: PERRL, EOMI, no pharyngeal exudate, mucous membranes moist Chest: Clear to auscultation, on room air, no adventitious breath sounds Cardiac: Regular rate and rhythm, no murmur, no JVD, normal peripheral pulses, good capillary refill Abdominal: TTP in LUQ and LLQ and around umbilicus without rebound or guarding; NABS x 4 quadrants, soft Extremities: Normal inspection, no peripheral edema or erythema, calfs nontender to palpation Psych: Normal mood and affect Neuro: AAO x 3, strength intact bilaterally and rated 5/5, no motor deficits, speech is clear, no peripheral sensory deficits Skin: no rash or erythema Principal Diagnosis acute uncomplicated diverticulitis Discharge Data Allergies Allergy/AdvReac Type Severity Reaction Status Date / Time adhesive Allergy Unknown "eats my Verified 02/09/22 19:56 skin" Aminoglycosides Allergy Unknown Hives Verified 02/09/22 19:56 azithromycin Allergy Unknown Hives Verified 02/09/22 19:56 bacitracin Allergy Unknown RASH Verified 02/09/22 19:56 Cephalosporins Allergy Unknown Hives Verified 02/09/22 19:56 ciprofloxacin Allergy Unknown EYE Verified 02/09/22 19:56 SWELLING, "burned my eyelids" duloxetine Allergy Unknown slurred Verified 02/09/22 19:56 speech/memory loss/ "like I was drunk" erythromycin base Allergy Unknown HIVES Verified 02/09/22 19:56 hydroxyzine Allergy Unknown PT DOESN'T Verified 02/09/22 19:56 REMEMBER REACTION minocycline Allergy Unknown HIVES Verified 02/09/22 19:56 mupirocin Allergy Unknown RASH Verified 02/09/22 19:56 neomycin Allergy Unknown RASH Verified 02/09/22 19:56 Penicillins Allergy Unknown HIVES Verified 02/09/22 19:56 polymyxin B Allergy Unknown RASH Verified 02/09/22 19:56 Quinolones Allergy Unknown Hives Verified 02/09/22 19:56 tetracycline Allergy Unknown HIVES Verified 02/09/22 19:56 aspirin AdvReac Unknown NOSEBLEEDS- Verified 02/09/22 19:56 CAN TAKE IBUPROFEN topiramate AdvReac Unknown SOB,DIZZINE Verified 02/09/22 19:56 SS Consultations 02/09/22 20:19 ED Decision to Admit Stat Ordered Studies 02/09/22 16:28 CT abd pelvis IV con only Stat Hospital Course (1) Diverticulitis: 61 y/o F w/ hypertension, hyperlipidemia, DM2, delayed gastric emptying, CKD, VERA, asthma, anxiety, depression, GERD, RLS, and hypothyroidismwho presents w/ acute uncomplicated diverticulitis. - Seen on CT A/P without perforation or abscess. - Given multiple antibiotic allergies, patient was started on ertapenem in ED, will continue this. - Continue NPO, IVF, antiemetics - Continue Ertapenem. Upon dispo home, PO bactrim and flagyl. 14 day total treatment course. (2) Qmnjg-vs-toeoqnm kidney injury: - resolved (3) Hypomagnesemia: - resolved (4) Diabetes mellitus type 2 with complications: - hold home regimen - SSI (5) Obstructive sleep apnea: - CPAP at night (6) Hypothyroidism: - Continue levothyroxine 20 mcg daily. (7) Hypertension: - Continue metoprolol 12.5 twice daily. - Hold losartan, resume on discharge home. BPs currently at goal. (8) Hyperlipidemia: - Continue atorvastatin 80 mg daily. (9) GERD (gastroesophageal reflux disease): - Continue PPI and Pepcid. (10) Anxiety and depression: - Continue amitriptyline 25 mg at night. - Continue Seroquel 50 mg twice daily and 400 mg at night. - Continue Trintellix 20 mg twice daily. - Continue clonazepam 0.5 mg twice daily (11) Asthma: - Continue Advair daily, with albuterol as needed. (12) Restless legs syndrome: - Continue ropinirole 0.5 mg daily. (13) Hepatic steatosis: - Noted on CT A/P, LFTs wnl. No RUQ pain. (14) Trigeminal neuralgia: - Continue baclofen 20 mg daily as needed. (15) Hidradenitis suppurativa: - Severe, Stage III in the right groin/right labia/left buttock/perineum. - Continue Humira 40 mg weekly injections. - Continue spironolactone 100 mg daily. (16) History of DVT (deep vein thrombosis): - RLE DVT 25 years ago, has been on Plavix ever since for this. - NPO. LR 80/hr - Dispo: downgraded to med/surg - SCDs, Lovenox for DVT ppx. - DNR/DNI. Total Time Total Time Spent Total Time Spent (In Minutes): <30 Discharge Plan Discharge Items Patient Disposition: Home - Self-Care Reason For Visit: DIVERTICULITIS Discharge Diagnosis: uncomplicated diverticulitis Activity: Per Instructions section Non-emergency contact: Primary Care Provider Call non-emergency contact if: you have any medication questions, your symptoms worsen and you have a fever Follow-up/Referrals: Ethan Karimi MD [Primary Care Provider] - (hospital discharge follow up within 1 week.) Diet: Regular Addtl Attending Provider Instructions: Hi Ms. Pickering, You were admitted to [facility] for uncomplicated diverticulitis. If you develop any new or worsening symptoms including fever, chills, sweats, chest pain, chest pressure, difficulty breathing, uncontrolled nausea/vomiting, rash, wheezing, passing out or nearly passing out, bleeding, black/bloody bowel movements, or other new or concerning symptoms please call your primary care physician, or call 911 for re-evaluation in the emergency department if you are very concerned. Pending Studies at Discharge: No Stand-Alone Forms: [facility] Phon[employer], Smoking Cessation Medications and DC Order Prescriptions: No Action Dexilant 60 mg capsule,biphase delayed releas 60 mg PO QAM Qty: 90 RF: 2 metoprolol tartrate 25 mg tablet 12.5 mg PO BID Qty: 30 RF: 5 clopidogrel 75 mg tablet 75 mg PO HS Qty: 30 RF: 5 atorvastatin 80 mg tablet 80 mg PO HS Qty: 90 RF: 1 pregabalin 100 mg capsule 100 mg PO BID Qty: 60 RF: 0 dulaglutide 3 mg/0.5 mL pen injector 3 mg subcut WK 90 Days Qty: 45 RF: 3 adalimumab 40 mg/0.4 mL pen injector kit See Rx Instructions subcut .COMPLEX Qty: 4 RF: 2 (DME) Incentive Spirometer Misc See Rx Instructions .MEDSUPPLY Qty: 1 RF: 0 quetiapine [Seroquel] 50 mg tablet 50 mg PO BID RF: 0 Novolog Flexpen U-100 Insulin 100 unit/mL (3 mL) insulin pen 7 unit subcut TID RF: 0 amitriptyline 25 mg tablet 25 mg PO HS RF: 0 (DME) Dexcom G6 Sensor Device See Rx Instructions .Route RF: 0 (DME) Dexcom G6 Roadability Machine Operator Misc See Rx Instructions .Route RF: 0 (DME) Dexcom G6 Transmitter Device See Rx Instructions .Route RF: 0 baclofen 20 mg tablet 20 mg PO DAILY RF: 0 albuterol sulfate [Ventolin HFA] 90 mcg/actuation HFA aerosol inhaler 1 - 2 puff Inhalation Q4H PRN (Reason: shortness of breath) Qty: 8 RF: 3 spironolactone 100 mg tablet 100 mg PO DAILY Qty: 30 RF: 3 quetiapine 400 mg tablet 400 mg PO HS Qty: 30 RF: 0 ropinirole 0.5 mg tablet 0.5 mg PO DAILY RF: 0 Lantus Solostar U-100 Insulin 100 unit/mL (3 mL) insulin pen 18 unit subcut BID RF: 0 Advair HFA 115-21 mcg/actuation HFA aerosol inhaler 2 puff inhalation BID RF: 0 docusate sodium [Stool Softener] 100 mg Tablet 100 mg PO DAILY RF: 0 losartan 50 mg tablet 50 mg PO DAILY RF: 0 prazosin 5 mg capsule 5 mg PO DAILY RF: 0 famotidine 20 mg tablet 20 mg PO BID RF: 0 Hold Instructions: for now levothyroxine 200 mcg tablet 200 mcg PO QAM RF: 0 Trintellix 20 mg tablet 20 mg PO BID RF: 0 clonazepam 0.5 mg tablet 0.5 mg PO BID RF: 0 flurbiprofen 100 mg tablet 50 mg PO BID RF: 0 metformin 500 mg tablet extended release 24 hr 1,000 mg PO BID RF: 0 Krames/Other Patient Handouts: Diverticulosis and Diverticulitis, Anatomy of the Digestive System Admission Data Admit Date/Time: 02/09/22 20:21 Attending Provider: Leonel Golbderg Admit Provider: Duane Kinsey Primary Care Provider: Ethan Karimi Other Providers: Duane Kinsey Resident Activity Tracking Resident Involvement: Resident Care Provided Care Provided: Adult Hospital Medicine
[2022-02-11] MEDS ORDERED: SIMETHICONE 80 MG CHEW PO PRN (15:37)
[2022-02-11] MEDS ORDERED: bisacodyL 10 MG SUPP PR STA (16:00)
--- NOTE | 2022-02-11 16:53 | Hospitalist Progress Note ---
Date of Service February 11, 2022 Assessment & Plan (1) Diverticulitis: Plan: 61 y/o F w/ hypertension, hyperlipidemia, DM2, delayed gastric emptying, CKD, VERA, asthma, anxiety, depression, GERD, RLS, and hypothyroidismwho presents w/ acute uncomplicated diverticulitis. - Seen on CT A/P without perforation or abscess. - Given multiple antibiotic allergies, patient was started on ertapenem in ED, will continue this. - Continue NPO, IVF, antiemetics - Continue Ertapenem. Upon dispo home, PO bactrim and flagyl. 14 day total treatment course. - Continue current course and advance diet as tolerated. Attempted regular diet, but this exacerbated LLQ abd pain and bloating. Ordered dulcolax suppository as constipation likely contributory. Increase colace to BID. (2) Xfxte-yl-khhjamp kidney injury: Plan: - resolved (3) Hypomagnesemia: Plan: - resolved (4) Diabetes mellitus type 2 with complications: Plan: - hold home regimen - SSI (5) Obstructive sleep apnea: Plan: - CPAP at night (6) Hypothyroidism: Plan: - Continue levothyroxine 20 mcg daily. (7) Hypertension: Plan: - Continue metoprolol 12.5 twice daily. - Hold losartan, resume on discharge home. BPs currently at goal. (8) Hyperlipidemia: Plan: - Continue atorvastatin 80 mg daily. (9) GERD (gastroesophageal reflux disease): Plan: - Continue PPI and Pepcid. (10) Anxiety and depression: Plan: - Continue amitriptyline 25 mg at night. - Continue Seroquel 50 mg twice daily and 400 mg at night. - Continue Trintellix 20 mg twice daily. - Continue clonazepam 0.5 mg twice daily (11) Asthma: Plan: - Continue Advair daily, with albuterol as needed. (12) Restless legs syndrome: Plan: - Continue ropinirole 0.5 mg daily. (13) Hepatic steatosis: Plan: - Noted on CT A/P, LFTs wnl. No RUQ pain. (14) Trigeminal neuralgia: Plan: - Continue baclofen 20 mg daily as needed. (15) Hidradenitis suppurativa: Plan: - Severe, Stage III in the right groin/right labia/left buttock/perineum. - Continue Humira 40 mg weekly injections. - Continue spironolactone 100 mg daily. (16) History of DVT (deep vein thrombosis): Plan: - RLE DVT 25 years ago, has been on Plavix ever since for this. Plan: - Full liquid diet, DM2. Trialed regular diet, but reverted. D/c'd LR 80/hr. - Dispo: med/surg - SCDs, Lovenox for DVT ppx. - DNR/DNI. Admission and Anticipated Discharge Date Admission Date: February 09, 2022 Supervising Physician Co-Signing Physician Notes I personally examined the patient and verified all ortiz points of history and exam, discussed case, and agree with decision making with Dr Schrader feeling better initially thinking about going home but then decided pain not yet good enough vitals noted nad heent nc at mmm breathing unlabored no accessory muscles good effort skin no rashes no pallor or icterus abd soft mild distention mild/mod tenderness mostly mid/LLQ no guarding/rebound/rigidity - similar maybe sl better than yesterday acute diverticulitis - no abscess. continue ertapenem. serial exams.improving. hopefully home on PO abx soon otherwise as above Subjective Feeling same as yesterday. 3/10 left abd discomfort, bloating. Tolerated clears. No BM. No flatus. Other ros neg. PM update: worsened bloating and L abd pain after lunch (regular diet). Has not had BM in days. + burping. Review of Systems Review of Systems: All systems reviewed & are unremarkable except as noted in HPI & below Physical Exam Physical Exam: General: Fully A&O. NAD. Cooperative. HEENT: Atraumatic, normocephalic. EOMI Pulm: CTAB anteriorly and laterally. -wheezes, -rales, -rhonchi. No respiratory distress. Wearing home cpap device. Cardiac: RRR, -mrg. No LE edema. Abdominal: Slightly more bloated vs prior day's exam. Soft. L sided TTP to light-moderate palpation. Integ: Mild congenital discolorations of RLE. Results & Data Results & Data ([facility]) Vital Signs (Past 12 Hours) Vital Signs Temp Pulse Resp BP Pulse Ox 02/11/22 15:49 37.2 C 89 20 109/69 97 02/11/22 07:20 36.8 C 84 18 126/71 97 Resident Activity Tracking Resident Involvement: Resident Care Provided Care Provided: Adult Hospital Medicine (1) Hypertension Hypertension type: unspecified Qualified Code(s): I10 - Essential (primary) hypertension (2) Asthma Asthma complication type: uncomplicated Asthma persistence: intermittent Asthma severity: mild Qualified Code(s): J45.20 - Mild intermittent asthma, uncomplicated
--- NOTE | 2022-02-11 17:14 | Billing Data ---
Date of Service February 11, 2022 Coding Level of Care Code 62489 Subseq Hosp Care Lvl 2
[2022-02-11] MEDS: QUEtiapine FUMARATE 200 MG TAB PO SCH (20:49)
[2022-02-11] MEDS: CLOPIDOGREL BISULFATE 75 MG TAB PO SCH (20:51)
[2022-02-11] MEDS: ATORVASTATIN 40 MG TAB PO SCH (20:52)
[2022-02-11] MEDS: AMITRIPTYLINE HCL 25 MG TAB PO SCH (20:52)
[2022-02-11] MEDS: ERTAPENEM SODIUM 1,000 MG in SYRINGE 0 ML IV SCH (20:56)
--- NOTE | 2022-02-11 22:42 | Electrocardiogram Report ---
Test Reason : Blood Pressure : / mmHG Vent. Rate : 096 BPM Atrial Rate : 096 BPM P-R Int : 156 ms QRS Dur : 092 ms QT Int : 328 ms P-R-T Axes : 034 -14 030 degrees QTc Int : 414 ms Normal sinus rhythm Possible Anterior infarct , age undetermined Nonspecific T wave abnormality Abnormal ECG When compared with ECG of 28-JUN-2019 21:36, No significant change was found Confirmed by Jan Cruz ([id number]) on 02/11/2022 10:42:20 PM Referred By: Ethan Karimi Confirmed By:Jan Cruz
[2022-02-12] MEDS: LEVOTHYROXINE SODIUM 200 MCG TABLET PO SCH (06:14)
[2022-02-12 06:59] LABS: Basophils # (auto) 0.01 K/uL (0-0.2); Basophils % (auto) 0.1 %; Eosinophils # (auto) 0.18 K/uL (0-0.5); Eosinophils % (auto) 2.6 %; Hematocrit (blood only) 33.1 % (37-47); Hemoglobin 10.9 g/dL (12.0-16.0); Immature Granulocytes # (auto) 0.01 K/uL (0.00-0.02); Immature Granulocytes % (auto) 0.1 %; Lymphocytes # (auto) 1.71 K/uL (1.2-3.4); Lymphocytes % (auto) 24.5 %; Mean Corpuscular Hemoglobin 28.5 pg (25-34); Mean Corpuscular Hgb Conc 32.9 g/dL (32-36); Mean Corpuscular Volume 86.6 fL (80-100); Mean Platelet Volume 9.8 fL (7.4-10.4); Monocytes # (auto) 0.57 K/uL (0.11-0.59); Monocytes % (auto) 8.2 %; Neutrophils # (auto) 4.49 K/uL (1.4-6.5); Neutrophils % (auto) 64.5 %; Platelet Count 235 K/uL (130-400); RDW Coefficient of Variation 14.6 % (11.5-14.5); RDW Standard Deviation 45.9 fL (36.4-46.3); Red Blood Count 3.82 M/uL (4.2-5.4); White Blood Count 6.97 K/uL (4.8-10.8)
--- NOTE | 2022-02-12 07:00 | Discharge Summary ---
Date of Service February 12, 2022 Admission HPI Per Admitting Provider Chief Complaint: persistent abdominal pain x 8 days Patient is a 61-year-old female with past medical history significant for hypertension, hyperlipidemia, DM2, delayed gastric emptying, CKD, VERA, asthma, anxiety, depression, GERD, RLS, and hypothyroidism who presents today with persistent abdominal pain. Last Wednesday, 01/31, she developed abdominal pain around her umbilicus with burning sensation into her chest. [place] consistent with acid reflux, so she took her PPI and Pepcid, as well as an OTC acid reflux medication without resolution of her symptoms. It persisted for several days, however never got worse and never radiated beyond the area surrounding her umbilicus. She did develop nausea and several episodes of nonbloody emesis after several days and had a hard time keeping PO intake down, but attempted to eat yogurt and drink tea to ease her stomach, however could not keep these down. She has had some ongoing fever and chills over the past few days, feels generally weak and dehydrated, and still has abdominal pain that she rates 4 out of 10. She initially had trouble with stools when her abdominal pain initially developed last Wednesday, and had episodes of "watery" diarrhea last week, but has not had a BM in 4-5 days, which she attributes to not eating or drinking much. She wears a Dexcom and reports her sugars have been erratic at home, in the 300s and then several minutes later without having taken any insulin, it goes down to 90s, therefore she has been apprehensive about taking insulin. Denies chest pain, palpitations shortness of breath, hematemesis, hematochezia, melena. In ED, she is hemodynamically stable, vital signs within normal limits and stable. Labs significant for sodium of 133, glucose 376, magnesium 1.3, alk phos 128. CT A/P showed moderate colonic diverticulosis with evidence of acute diverticulitis involving the distal descending/proximal sigmoid without intraperitoneal free air or organized fluid collection suggestive of abscess. Hepatomegaly and steatosis also noted, as well as uterine fibroids. Patient received ertapenem, anti-emetics, 14 units SQ regular insulin, magnesium, and IVF in ED. Hospitalist service was consulted for further evaluation and admission. Admission Exam Per Admitting Provider General: awake, alert, no apparent distress Head: Normocephalic, atraumatic ENT: PERRL, EOMI, no pharyngeal exudate, mucous membranes moist Chest: Clear to auscultation, on room air, no adventitious breath sounds Cardiac: Regular rate and rhythm, no murmur, no JVD, normal peripheral pulses, good capillary refill Abdominal: TTP in LUQ and LLQ and around umbilicus without rebound or guarding; NABS x 4 quadrants, soft Extremities: Normal inspection, no peripheral edema or erythema, calfs nontender to palpation Psych: Normal mood and affect Neuro: AAO x 3, strength intact bilaterally and rated 5/5, no motor deficits, speech is clear, no peripheral sensory deficits Skin: no rash or erythema Principal Diagnosis acute uncomplicated diverticulitis Discharge Exam General: Fully A&O. NAD. Cooperative. HEENT: Atraumatic, normocephalic. EOMI Pulm: CTAB anteriorly and laterally. -wheezes, -rales, -rhonchi. No respiratory distress. Cardiac: RRR, -mrg. No LE edema. Abdominal: Slightly bloated. Soft. L sided mild TTP, improved from previous day's exam. Integ: Mild congenital discolorations of RLE. Discharge Data Allergies Allergy/AdvReac Type Severity Reaction Status Date / Time adhesive Allergy Unknown "eats my Verified 02/09/22 19:56 skin" Aminoglycosides Allergy Unknown Hives Verified 02/09/22 19:56 azithromycin Allergy Unknown Hives Verified 02/09/22 19:56 bacitracin Allergy Unknown RASH Verified 02/09/22 19:56 Cephalosporins Allergy Unknown Hives Verified 02/09/22 19:56 ciprofloxacin Allergy Unknown EYE Verified 02/09/22 19:56 SWELLING, "burned my eyelids" duloxetine Allergy Unknown slurred Verified 02/09/22 19:56 speech/memory loss/ "like I was drunk" erythromycin base Allergy Unknown HIVES Verified 02/09/22 19:56 hydroxyzine Allergy Unknown PT DOESN'T Verified 02/09/22 19:56 REMEMBER REACTION minocycline Allergy Unknown HIVES Verified 02/09/22 19:56 mupirocin Allergy Unknown RASH Verified 02/09/22 19:56 neomycin Allergy Unknown RASH Verified 02/09/22 19:56 Penicillins Allergy Unknown HIVES Verified 02/09/22 19:56 polymyxin B Allergy Unknown RASH Verified 02/09/22 19:56 Quinolones Allergy Unknown Hives Verified 02/09/22 19:56 tetracycline Allergy Unknown HIVES Verified 02/09/22 19:56 aspirin AdvReac Unknown NOSEBLEEDS- Verified 02/09/22 19:56 CAN TAKE IBUPROFEN topiramate AdvReac Unknown SOB,DIZZINE Verified 02/09/22 19:56 SS Consultations 02/09/22 20:19 ED Decision to Admit Stat Ordered Studies CBC 02/12/22 Range/Units 06:30 WBC 6.97 (4.8-10.8) K/uL RBC 3.82 L (4.2-5.4) M/uL Hgb 10.9 L (12.0-16.0) g/dL Hct 33.1 L (37-47) % Plt Count 235 (130-400) K/uL Neut # (Auto) 4.49 (1.4-6.5) K/uL Lymph # (Auto) 1.71 (1.2-3.4) K/uL [place] # (Auto) 0.57 (0.11-0.59) K/uL Eos # (Auto) 0.18 (0-0.5) K/uL Baso # (Auto) 0.01 (0-0.2) K/uL Comprehensive Metabolic Panel 02/12/22 Range/Units 06:30 Sodium 140 (136-145) mmol/L Potassium 3.8 (3.5-5.1) mmol/L Chloride 107 (98-107) mmol/L Carbon Dioxide 27 (21-32) mmol/L BUN 8 (6-23) mg/dl Creatinine 1.00 (0.6-1.2) mg/dl Glucose 129 H (70-99(Fasting)) mg/dl Calcium 9.1 (8.5-10.1) mg/dl Intake and Output 02/12/22 02/12/22 02/12/22 06:59 14:59 22:59 Intake Total 175 / 3469.000 1020 / 1020 Balance 175 / 3469.000 1020 / 1020 Intake: Oral 175 / 5 1020 / 1020 Other: Weight 103.1 kg 103.1 kg Patient Weight 02/13/22 06:59 Weight 103.1 kg Abdomen/Pelvis CT 02/09/22 16:28 CT SCAN OF THE ABDOMEN AND PELVIS WITH IV CONTRAST CLINICAL HISTORY: Upper abdominal pain. Vomiting. COMPARISON STUDY: Abdominal CT dated 09/02/2007. Chest CT dated 01/14/2021. TECHNIQUE: Following the IV administration of 94 cc of Optiray 320, CT scan of the abdomen and pelvis is performed from the lung bases to the proximal femora. Images are reviewed in the axial, sagittal, and coronal planes. IV contrast was administered without complication. A dose lowering technique was utilized adhering to the principles of ALARA. CT DOSE: 2013.00 mGy.cm FINDINGS: Lung bases: The heart is normal in size and without pericardial effusion. Calcified granulomas are seen at the left lung base. There are 2 right lower lobe pulmonary nodules measuring up to 3 mm seen on images #12 and #62. These are unchanged from the 01/14/[address] No airspace consolidation or pleural effusion is identified. Liver: The contrast-enhanced liver is normal in enlarged, measuring 21.4 cm in craniocaudal length. The liver demonstrates diffusely diminished attenuation consistent with hepatic steatosis. There is no intrahepatic biliary ductal dilatation. The hepatic veins and portal veins are patent. Gallbladder: Unremarkable. Spleen: Normal in size and attenuation. There are calcified splenic granulomas. Pancreas: Unremarkable. Adrenal glands: Unremarkable. Kidneys: The contrast enhanced kidneys are normal in size and without hydr onephrosis. The kidneys enhance symmetrically. Numerous foci of cortical scarring are noted in the right kidney. Abdominal vasculature: The abdominal aorta is normal in course and caliber noting moderate atherosclerotic calcification. The right iliac vein is diminutive versus absent. There are collateral vessels within the groin/inguinal region bilaterally and in the right abdominal wall. This is unchanged in 2006. Bowel: There is moderate colonic diverticulosis. There is wall thickening with pericolonic inflammation involving the distal descending/proximal sigmoid colon consistent with acute diverticulitis. No organized fluid collection is seen to suggest abscess. No bowel obstruction is identified. Duodenal diverticula are incidentally noted. The appendix is well-visualized and normal Peritoneum: There is no intraperitoneal free air or abdominal ascites. Lymphadenopathy: None. Pelvic viscera: The bladder is distended but otherwise normal as visualized. Uterine fibroids are suggested. No adnexal lesion is seen. Skeletal structures: No lytic or blastic lesions are seen. IMPRESSION: 1. Moderate colonic diverticulosis with evidence of acute diverticulitis involving the distal descending/proximal sigmoid. 2. No intraperitoneal free air is identified and no organized fluid collection is seen to suggest abscess. 3. Hepatomegaly and hepatic steatosis. 4. Suspect uterine fibroids. 5. Additional findings as above. ACT 112: Negative or not required by law. Electronically signed by: Gaurav Fisher M.D. 02/09/2022 5:08 PM Hospital Course (1) Diverticulitis: 61 y/o F w/ hypertension, hyperlipidemia, DM2, delayed gastric emptying, CKD, VERA, asthma, anxiety, depression, GERD, RLS, and hypothyroidismwho presents w/ acute uncomplicated diverticulitis. - Seen on CT A/P without perforation or abscess. - Given multiple antibiotic allergies, patient was started on ertapenem in ED, will continue this. - Diet advanced - Ertapenem provided while inpatient given medication allergies. Discharging on Bactrim DS and Flagyl - Bowel regimen recommended. While inpatient, had BM after 1 dose of [place] dulcolax. Antibiotics will be completed end of 02/20/22. Bactrim DS every 12hours + Flagyl 500mg every 8 hours. (2) Diabetes mellitus type 2 with complications: - resume home regimen; no change was made upon discharge - elevated poc bsg to 300s at arrival - recommend f/u w/ endocrine and DM educator (3) [id number] kidney injury: - resolved (4) Hypomagnesemia: - resolved (5) Obstructive sleep apnea: - CPAP at night (6) Hypothyroidism: - Continue levothyroxine 20 mcg daily. (7) Hypertension: - Continue home regimen (8) Hyperlipidemia: - Continue atorvastatin 80 mg daily. (9) GERD (gastroesophageal reflux disease): - Continue PPI and Pepcid. (10) Anxiety and depression: - Continue amitriptyline 25 mg at night. - Continue Seroquel 50 mg twice daily and 400 mg at night. - Continue Trintellix 20 mg twice daily. - Continue clonazepam 0.5 mg twice daily (11) Asthma: - Continue Advair daily, with albuterol as needed. (12) Restless legs syndrome: - Continue ropinirole 0.5 mg daily. (13) Hepatic steatosis: - Noted on CT A/P, LFTs wnl. No RUQ pain. (14) Trigeminal neuralgia: - Continue baclofen 20 mg daily as needed. (15) Hidradenitis suppurativa: - Severe, Stage III in the right groin/right labia/left buttock/perineum. - Continue Humira 40 mg weekly injections. - Continue spironolactone 100 mg daily. (16) History of DVT (deep vein thrombosis): - RLE DVT 25 years ago, has been on Plavix ever since for this. Code status this admission: DNR/DNI. Total Time Total Time Spent Total Time Spent (In Minutes): <30 Discharge Plan Discharge Items Patient Disposition: Home - Self-Care Reason For Visit: DIVERTICULITIS Discharge Diagnosis: acute uncomplicated diverticulitis Activity: Per Instructions section Non-emergency contact: Primary Care Provider Call non-emergency contact if: you have any medication questions, your symptoms worsen and you have a fever Follow-up/Referrals: Ethan Karimi MD [Primary Care Provider] - (hospital discharge follow up within 1 week.) Diet: Regular Addtl Attending Provider Instructions: Hi Ms. Pickering, You were admitted to [facility] for uncomplicated diverticulitis. Because of your medication allergies, you were treated with an IV antibiotic called ertapenem. Upon discharge, you will be sent home on Bactrim and metronidazole for a total of 12 day treatment course (including the hospital antibiotics). Your antibiotics will be completed end of 02/20/22. Bactrim DS every 12hours + metronidazole 500mg every 8 hours (follow as close to every 8 hours as possible, does not have to be exact). Take the first doses tonight ~8pm. Please take a bowel regimen at home. You received dulcolax suppository in the hospital. At home, you may take miralax as needed for constipation. Please follow up with your diabetes doctor and consider following a family living educator (usually nursing staff). Your sugars were elevated when you first arrived to the hospital. Your home regimen was not changed upon discharge home. If you develop any new or worsening symptoms including fever, chills, sweats, chest pain, chest pressure, difficulty breathing, uncontrolled nausea/vomiting, rash, wheezing, passing out or nearly passing out, bleeding, black/bloody bowel movements, or other new or concerning symptoms please call your primary care physician, or call 911 for re-evaluation in the emergency department if you are very concerned. Pending Studies at Discharge: No Stand-Alone Forms: [facility], Smoking Cessation Medications and DC Order Prescriptions: New sulfamethoxazole-trimethoprim [Bactrim DS] 800-160 mg tablet 1 tab PO BID 9 Days Qty: 17 RF: 0 metronidazole 500 mg tablet 500 mg PO Q8H 9 Days Qty: 26 RF: 0 Continued Dexilant 60 mg capsule,biphase delayed releas 60 mg PO QAM Qty: 90 RF: 2 metoprolol tartrate 25 mg tablet 12.5 mg PO BID Qty: 30 RF: 5 clopidogrel 75 mg tablet 75 mg PO HS Qty: 30 RF: 5 atorvastatin 80 mg tablet 80 mg PO HS Qty: 90 RF: 1 pregabalin 100 mg capsule 100 mg PO BID Qty: 60 RF: 0 dulaglutide 3 mg/0.5 mL pen injector 3 mg subcut WK 90 Days Qty: 45 RF: 3 adalimumab 40 mg/0.4 mL pen injector kit See Rx Instructions subcut .COMPLEX Qty: 4 RF: 2 (DME) Incentive Spirometer Misc See Rx Instructions .MEDSUPPLY Qty: 1 RF: 0 quetiapine [Seroquel] 50 mg tablet 50 mg PO BID RF: 0 Novolog Flexpen U-100 Insulin 100 unit/mL (3 mL) insulin pen 7 unit subcut TID RF: 0 amitriptyline 25 mg tablet 25 mg PO HS RF: 0 (DME) Dexcom G6 Sensor Device See Rx Instructions .Route RF: 0 (DME) Dexcom G6 Stone Layout Marker Misc See Rx Instructions .Route RF: 0 (DME) Dexcom G6 Transmitter Device See Rx Instructions .Route RF: 0 baclofen 20 mg tablet 20 mg PO DAILY RF: 0 albuterol sulfate [Ventolin HFA] 90 mcg/actuation HFA aerosol inhaler 1 - 2 puff Inhalation Q4H PRN (Reason: shortness of breath) Qty: 8 RF: 3 spironolactone 100 mg tablet 100 mg PO DAILY Qty: 30 RF: 3 quetiapine 400 mg tablet 400 mg PO HS Qty: 30 RF: 0 ropinirole 0.5 mg tablet 0.5 mg PO DAILY RF: 0 Lantus Solostar U-100 Insulin 100 unit/mL (3 mL) insulin pen 18 unit subcut BID RF: 0 Advair HFA 115-21 mcg/actuation HFA aerosol inhaler 2 puff inhalation BID RF: 0 docusate sodium [Stool Softener] 100 mg Tablet 100 mg PO DAILY RF: 0 losartan 50 mg tablet 50 mg PO DAILY RF: 0 prazosin 5 mg capsule 5 mg PO DAILY RF: 0 famotidine 20 mg tablet 20 mg PO BID RF: 0 Hold Instructions: for now levothyroxine 200 mcg tablet 200 mcg PO QAM RF: 0 Trintellix 20 mg tablet 20 mg PO BID RF: 0 clonazepam 0.5 mg tablet 0.5 mg PO BID RF: 0 flurbiprofen 100 mg tablet 50 mg PO BID RF: 0 metformin 500 mg tablet extended release 24 hr 1,000 mg PO BID RF: 0 Discharge Orders: Discharge Order (Routine); Ordered 02/12/22 Ordered By: Alonzo Patterson/Other Patient Handouts: Diverticulosis and Diverticulitis, Anatomy of the Digestive System Admission Data Admit Date/Time: 02/09/22 20:21 Attending Provider: Leonel Goldberg Admit Provider: Duane Kinsey Primary Care Provider: Ethan Karimi Other Providers: Duane Kinsey Other Interventions: Discharge Summary Assessment (RN) Last Done: 02/12/22 15:57 Supervising Physician Co-Signing Physician Notes I personally examined the patient and verified all ortiz points of history and exam, discussed case, and agree with decision making with Dr Schrader feeling better feels up to going home vitals noted nad heent nc at mmm breathing unlabored no accessory muscles good effort skin no rashes no pallor or icterus acute diverticulitis - no abscess. safe for home on PO abx. outpt f/u otherwise as above Resident Activity Tracking Resident Involvement: Resident Care Provided Care Provided: Adult Hospital Medicine
[2022-02-12 07:35] LABS: Calcium 9.1 mg/dl (8.5-10.1); Creatinine Clr Calc Pharmacy 68.6 ml/min; Est GFR (African American) 69.4 ml/min; Est GFR (Non-African American) 59.9 ml/min; Potassium 3.8 mmol/L (3.5-5.1)
[2022-02-12] MEDS ORDERED: bisacodyL 10 MG SUPP PR STA (08:01)
[2022-02-12] MEDS: INSULIN ASPART PER UNIT SC SCH ×2 (08:25→12:10)
[2022-02-12] MEDS: DOCUSATE SODIUM 100 MG CAP PO SCH (08:26)
[2022-02-12] MEDS: BACLOFEN 20 MG TAB PO SCH (08:26)
[2022-02-12] MEDS: FAMOTIDINE 20 MG TAB PO SCH (08:29)
[2022-02-12] MEDS: rOPINIRole HCL 0.25 MG TABLET PO SCH (08:29)
[2022-02-12] MEDS: METOPROLOL TARTRATE 25 MG TAB PO SCH (08:29)
[2022-02-12] MEDS: FLUTICASONE/VILANTEROL 200/25MCG 14 PUFFS/INHALER INH SCH (08:30)
[2022-02-12] MEDS: PRAZOSIN HCL 1 MG CAP PO SCH (08:30)
[2022-02-12] MEDS: PANTOprazole 40 MG TAB PO SCH (08:30)
[2022-02-12] MEDS: SPIRONOLACTONE 100 MG TAB PO SCH (08:31)
[2022-02-12] MEDS: INSULIN GLARGINE SOLOSTAR 100 UNITS/ML 3 ML PEN SQ SCH (08:31)
[2022-02-12] MEDS: QUEtiapine FUMARATE 25 MG TABLET PO SCH ×2 (08:32→13:58)
[2022-02-12] MEDS: ENOXAPARIN INJ 40 MG/0.4 ML SYR SQ SCH (08:32)
[2022-02-12] MEDS: clonazePAM 0.5 MG TAB PO SCH (08:34)
[2022-02-12] MEDS: PREGABALIN 100 MG CAP PO SCH (08:34)
--- NOTE | 2022-02-12 17:17 | Billing Data ---
Date of Service February 12, 2022 Coding Level of Care Code D/C DAY MANAGEMENT <30 MINS
== END 2022-02-12 17:01 | disposition home or self-care (01) | DRG 392 ==
LOC: ED 14:11 → 2N 20:21 → SUATTDRO 20:21 → 2N 21:59
DX: Z87.2 Personal history of diseases of the skin and subcutaneous tissue; Z98.42 Cataract extraction status, left eye; K76.0 Fatty (change of) liver, not elsewhere classified; E86.0 Dehydration; E83.42 Hypomagnesemia; Z88.0 Allergy status to penicillin; Z86.16 Personal history of COVID-19; Z98.41 Cataract extraction status, right eye; Z79.890 Hormone replacement therapy; E78.5 Hyperlipidemia, unspecified; Z91.048 Other nonmedicinal substance allergy status; Z79.02 Long term (current) use of antithrombotics/antiplatelets; J45.20 Mild intermittent asthma, uncomplicated; Q87.2 Congenital malformation syndromes predominantly involving limbs; Z88.6 Allergy status to analgesic agent; L73.2 Hidradenitis suppurativa; Z88.2 Allergy status to sulfonamides; G47.33 Obstructive sleep apnea (adult) (pediatric); F41.8 Other specified anxiety disorders; K21.9 Gastro-esophageal reflux disease without esophagitis; N18.9 Chronic kidney disease, unspecified; N17.9 Acute kidney failure, unspecified; G50.0 Trigeminal neuralgia; I12.9 Hypertensive chronic kidney disease with stage 1 through stage 4 chronic kidney disease, or unspecified chronic kidney disease; Z88.8 Allergy status to other drugs, medicaments and biological substances; D25.9 Leiomyoma of uterus, unspecified; Z88.1 Allergy status to other antibiotic agents; E11.22 Type 2 diabetes mellitus with diabetic chronic kidney disease; G25.81 Restless legs syndrome; E11.65 Type 2 diabetes mellitus with hyperglycemia; E03.9 Hypothyroidism, unspecified; Z79.4 Long term (current) use of insulin; K57.30 Diverticulosis of large intestine without perforation or abscess without bleeding; Z66 Do not resuscitate; Z79.84 Long term (current) use of oral hypoglycemic drugs; Z86.718 Personal history of other venous thrombosis and embolism

== ENCOUNTER 2022-04-17 16:47 | Inpatient (IN) ==
[2022-04-17] MEDS ORDERED: SODIUM CHLORIDE 0.9% 1000ML 1,000 ML IV ONE (18:13)
[2022-04-17 18:27] LABS: Basophils # (auto) 0.05 K/uL (0-0.2); Basophils % (auto) 0.5 %; Eosinophils # (auto) 0.28 K/uL (0-0.50); Hematocrit (blood only) 37.8 % (34.1-44.9); Hemoglobin 12.1 g/dl (12.0-16.0); Immature Granulocytes # (auto) 0.02 K/uL (0.00-0.02); Immature Granulocytes % (auto) 0.2 %; Lymphocytes # (auto) 1.38 K/uL (1.2-3.4); Lymphocytes % (auto) 14.8 %; Mean Corpuscular Hemoglobin 28.2 pg (25.0-34.0); Mean Corpuscular Volume 88.1 fL (80.0-100.0); Mean Platelet Volume 9.8 fL (9.4-12.3); Monocytes # (auto) 0.62 K/uL (0.24-0.82); Monocytes % (auto) 6.6 %; Neutrophils # (auto) 6.98 K/uL (1.4-6.5); Neutrophils % (auto) 74.9 %; Platelet Count 264 K/uL (130-400); RDW Coefficient of Variation 15.3 % (11.5-14.5); RDW Standard Deviation 49.7 fL (36.4-46.3); Red Blood Count 4.29 M/uL (3.93-5.22); White Blood Count 9.33 K/ul (4.8-10.8)
[2022-04-17 19:03] LABS: Lipase 46 U/L (11-82)
[2022-04-17 19:04] LABS: Creatine Kinase 58 U/L (26-192)
--- NOTE | 2022-04-17 19:05 | Emergency Department Note ---
Impression & Plan Hyperkalemia, Diverticulitis, Acute on chronic renal insufficiency ED Provider Note NAME: ADRY ONEAL AGE: 61 SEX: F ARRIVES VIA: Walk-In INFORMANT: Patient ED PROVIDER(S): Sidney Langley MD CHIEF COMPLAINT: Leg weakness, spasms PLAN: Disposition: Admit MEDICAL DECISION MAKING: The patient is a pleasant 61-year-old woman with a past medical history of IDDM 2, hypothyroidism, anxiety depression, VERA, hypomagnesemia, gastropathy, chronic constipation, GERD, arthritis, ambulatory with walker who presents to the emergency department for evaluation of leg weakness and spasms over the past several days where she reports she had couple of falls where her right leg slipped from under her when getting up and fell onto her bottom. She denies any head strike or loss of consciousness. She denies any change in chronic back and hip pain. She is worried because the last time her legs were spasming as they are she had a urinary tract infection. She reports her blood sugars have been in the 200s and this is typical for her. She denies any fevers, chills, cough, congestion, GI or symptoms per se. On arrival the patient is chronically ill-appearing but no distress, afebrile with stable vital signs. She appears clinically dry. She has full range of motion of hips bilaterally. She has no midline tenderness to palpation or step-offs of the CT or L-spine. She has normal reflexes. There is no clonus. She does exhibit intermittent myoclonic jerking of her legs. WBC, H/H and platelets within normal limits. Chemistry without metabolic acidosis. Creatinine is 1.8 increased from recent values. Initial glucose 237. Lactic acid 2.0, within normal limits. Potassium 7.3 and otherwise, electrolytes without significant abnormality. LFTs unremarkable. CPK within normal limits. Lipase not elevated. Procalcitonin is not elevated. TSH within normal limits. COVID-19 RNA, NAAT test was negative. CT of the abdomen pelvis demonstrates mild diverticulitis. Patient was ordered for IV ceftriaxone and oral Flagyl. Patient was treated with calcium and insulin for hypercalcemia of 7.3. An immediate repeat potassium was performed to exclude the possibility of an erroneous value however this did result at a value of 6.7 until the patient hyperkalemia was confirmed. EKG is unremarkable without hyperacute T waves or prolonged intervals. She was additionally ordered for [place]. Unclear etiology to the patient's hyperkalemia. She denies taking supplements or or excess consumption of potassium containing food or drink. Patient agrees with plan for admission for further management. Case was discussed with Dr. Beck, [facility] [place], who will evaluate the patient for admission. Triage Nursing notes reviewed and agree them. Prior medical records reviewed Vital Signs: reviewed and remarkable for no significant abnormalities Differential diagnosis: Infection, dehydration, metabolic abnormality, hypo/hyperglycemia, electrolyte disturbance, anemia, hypoxia, cardiac sources, intracerebral event, toxicologic, neurologic, as well as other pathologies. ER treatment provided: See below. Diagnostics interpreted by me: ECG: Normal sinus rhythm, 82 bpm, no ectopy, no overt ST elevation or depression, QTC 420, QRS 100. Cardiac Monitoring: An order for continuous cardiac monitoring was placed and demonstrated sinus rhythm, 82 bpm, no ectopy. Laboratory studies: See below Imaging studies: See below Consultation(s): Case was discussed with Dr. Beck [facility] hospital[place], who will evaluate the patient for admission. HPI: The patient is a pleasant 61-year-old woman with a past medical history of IDDM 2, hypothyroidism, anxiety depression, VERA, hypomagnesemia, gastropathy, chronic constipation, GERD, arthritis, ambulatory with walker who presents to the emergency department for evaluation of leg weakness and spasms over the past several days where she reports she had couple of falls where her right leg slipped from under her when getting up and fell onto her bottom. She denies any head strike or loss of consciousness. She denies any change in chronic back and hip pain. She is worried because the last time her legs were spasming as they are she had a urinary tract infection. She reports her blood sugars have been in the 200s and this is typical for her. She denies any fevers, chills, cough, congestion, GI or symptoms per se. ROS: See above HPI for pertinent positives & negatives. A total of 10 systems reviewed and were otherwise negative. VITALS:See Below PHYSICAL EXAMINATION: GENERAL: Awake, alert, chronically ill-appearing, in no distress, BMI 45.1. HENT: Normocephalic, atraumatic. Oropharynx with dry mucous membranes and ot herwise unremarkable. EYES: Normal conjunctiva. Sclera non-icteric. NECK: Supple. No nuchal rigidity. FROM. No JVD. RESPIRATORY: Clear to auscultation. CARDIAC: Regular rate, normal rhythm. Extremities warm and well perfused. Pulses equal. ABDOMEN: Soft, non-distended. No tenderness to palpation. No rebound or guarding. No masses. RECTAL: Deferred. MUSCULOSKELETAL: Chest examination reveals no tenderness. The back is symmetrical on inspection without obvious abnormality. There is no CVA tendern ess to palpation. No joint edema. LOWER EXTREMITIES: Calves are equal size bilaterally and non-tender. No edema. No discoloration. NEURO: Normal sensorium. No sensory or motor deficits noted. Normal reflexes, no clonus. Intermittent myoclonic jerking of bilateral lower extremities. SKIN: No rash or jaundice noted. ED COURSE: Critical Care: I have personally spent greater than 55 minutes of critical care time in the direct management of this patient. This includes bedside care, interpretation of diagnostic studies, and testing, discussion with consultants, patient, and family members, and other required patient management activities. This 55 minutes is in excess of all separately billable procedures. Sidney Langley MD Past Med/Surg History Medical History [id number] kidney injury Change in mental status Deep vein thrombosis Degenerative disc disease Dehydration Delayed gastric emptying Diarrhea Diverticulitis Enlarged heart Generalized anxiety disorder with panic attacks Generalized muscle weakness Hidradenitis suppurativa History of COVID-19 Left lumbar radiculopathy Morbid obesity with BMI of 45.0-49.9, adult Morbid obesity with BMI of 50.0-59.9, adult Nausea & vomiting Osteopenia Personal history of diabetic foot ulcer Psychiatric care Pulmonary nodule Restrictive lung disease Sleep apnea SOB (shortness of breath) on exertion Solitary thyroid nodule Spinal stenosis Thyroid nodule Venous malformation Vitamin B12 deficiency Surgical History H/O ligation of vein History of bilateral cataract extraction History of colonoscopy with polypectomy History of esophagogastroduodenoscopy (EGD) History of tooth extraction History of umbilical hernia repair Status post trigger finger release Family History Aunt Breast cancer Uncle Family hx of colon cancer Colorectal cancer Mother Family history of diabetes mellitus Family history of reaction to anesthesia Stroke Diabetes Heart disease Hypertension Father Prostate cancer Cancer Grandfather (Maternal) Myocardial infarction Sister Family history of diabetes mellitus Family history of reaction to anesthesia Diabetes Hypertension Family/Other Family hx of colon cancer Brother Family history of reaction to anesthesia Diabetes Denies family history of Ovarian cancer Uterine cancer Social History Smoking Status: Never smoker Second Hand Exposure: No; Do You Dip or Chew Tobacco: No; Tobacco Cessation Education Requested by Patient: No Hx Alcohol Use: No Hx Substance Use: No Preferred Language: Armenian Communication Ability: Effective Visual Impairment: No Limitations Hearing Ability: Normal Communications Writer Required: No Beliefs That Will Affect Care: None marital status: Single Current Living Situation: Alone Current Living Situation Comment: [facility] current occupational status: disabled How many Children do You have: 0 Other Information That Helps Us Care for You: No Feels Safe at Home: Yes Safety Concerns: Feels Safe At This Time during the past year weight has: decreased > 10 lbs Seatbelt Use: always Sunscreen Use: Yes Assistive Devices: CPAP, Glasses and Walker Assistive Devices Comment: Wears CPAP HS Allergies Allergies Allergy/AdvReac Type Severity Reaction Status Date / Time adhesive Allergy Intermediate "eats my Verified 04/17/22 19:59 skin" Aminoglycosides Allergy Intermediate Hives Verified 04/17/22 19:59 azithromycin Allergy Intermediate Hives Verified 04/17/22 19:59 bacitracin Allergy Intermediate RASH Verified 04/17/22 19:59 Cephalosporins Allergy Intermediate Hives Verified 04/17/22 19:59 ciprofloxacin Allergy Intermediate EYE Verified 04/17/22 19:59 SWELLING, "burned my eyelids" erythromycin base Allergy Intermediate HIVES Verified 04/17/22 19:59 minocycline Allergy Intermediate HIVES Verified 04/17/22 19:59 mupirocin Allergy Intermediate RASH Verified 04/17/22 19:59 neomycin Allergy Intermediate RASH Verified 04/17/22 19:59 Penicillins Allergy Intermediate HIVES Verified 04/17/22 19:59 polymyxin B Allergy Intermediate RASH Verified 04/17/22 19:59 Quinolones Allergy Intermediate Hives Verified 04/17/22 19:59 tetracycline Allergy Intermediate HIVES Verified 04/17/22 19:59 hydroxyzine Allergy Unknown PT DOESN'T Verified 04/17/22 19:58 REMEMBER REACTION topiramate AdvReac Severe SOB,DIZZINE Verified 04/17/22 19:59 SS aspirin AdvReac Intermediate NOSEBLEEDS- Verified 04/17/22 19:59 CAN TAKE IBUPROFEN duloxetine AdvReac Intermediate slurred Verified 04/17/22 19:59 speech/memory loss/ "like I was drunk" Home Meds Home Medications Medication Instructions Recorded Confirmed docusate sodium 100 mg tablet 100 mg PO DAILY 02/28/21 04/17/22 (Stool Softener) blood-glucose meter,continuous 06/17/21 04/15/22 (Dexcom G6 Director Of National Sales) blood-glucose sensor (DexSavvySystems G6 06/17/21 04/15/22 Sensor) blood-glucose transmitter (Dexcom 06/17/21 04/15/22 G6 Transmitter) fluticasone propionate 115 2 puff inhalation BID 07/04/21 04/17/22 mcg-salmeterol 21 mcg/actuation HFA inhaler (Advair HFA) levothyroxine 200 mcg tablet 200 mcg PO QAM 09/29/21 04/17/22 losartan 50 mg tablet 50 mg PO DAILY 09/29/21 04/17/22 prazosin 5 mg capsule 5 mg PO DAILY 09/29/21 04/17/22 vortioxetine 20 mg tablet 20 mg PO BID 09/29/21 04/17/22 (Trintellix) clonazepam 0.5 mg tablet 0.5 mg PO BID 10/22/21 04/17/22 insulin aspart U-100 100 unit/mL 7 unit subcut TID 10/22/21 04/17/22 (3 mL) subcutaneous pen (Novolog Flexpen U-100 Insulin aspart) insulin glargine 100 unit/mL (3 18 unit subcut BID 10/22/21 04/17/22 mL) subcutaneous pen (Lantus Solostar U-100 Insulin) quetiapine 50 mg tablet (Seroquel) 50 mg PO BID 10/22/21 04/17/22 amitriptyline 25 mg tablet 25 mg PO HS 01/06/22 04/17/22 baclofen 20 mg tablet 20 mg PO HS jaw spasms/neuralgia 01/21/22 04/17/22 flurbiprofen 100 mg tablet 50 mg PO BID 02/09/22 04/17/22 metformin 500 mg tablet,extended 1,000 mg PO BID 02/09/22 04/17/22 release 24 hr ropinirole 0.5 mg tablet 1.5 mg PO HS 04/07/22 04/17/22 Previous Rx's Medication Instructions Recorded dexlansoprazole 60 mg 60 mg PO QAM #90 caps 01/24/21 capsule,biphase delayed release (Dexilant) Incentive Spirometer #1 ea 03/14/21 albuterol sulfate 90 mcg/actuation 1 - 2 puff inhalation Q4H PRN 06/24/21 aerosol inhaler (Ventolin HFA) shortness of breath #8 grams metoprolol tartrate 25 mg tablet 12.5 mg PO BID #30 tabs 08/22/21 clopidogrel 75 mg tablet 75 mg PO HS #30 tabs 09/09/21 atorvastatin 80 mg tablet 80 mg PO HS #90 tabs 11/04/21 quetiapine 400 mg tablet 400 mg PO HS #30 tabs 12/18/21 dulaglutide 3 mg/0.5 mL 3 mg (0.5 mL) subcut WK 90 days 01/07/22 subcutaneous pen injector #45 mL adalimumab 40 mg/0.4 mL See Rx Instructions subcut 01/22/22 subcutaneous pen kit .COMPLEX #4 ea famotidine 40 mg tablet 40 mg PO BID #60 tabs 03/06/22 pregabalin 100 mg capsule 100 mg PO BID #60 caps 04/01/22 spironolactone 100 mg tablet 100 mg PO BID 30 days #60 tabs 04/07/22 sulfamethoxazole 800 1 tab PO BID 14 days #28 tabs 04/07/22 mg-trimethoprim 160 mg tablet (Bactrim DS) pen needle, diabetic 32 gauge x #500 ea 04/17/22 1/" (UltiCare Pen Needle) Results & Data (ED) Vital Signs Vital Signs - 24 hr 04/17/22 16:48 04/17/22 18:21 04/17/22 18:23 Temperature 36.9 C Temperature Source Temporal Artery Scan Pulse Rate 95 H Pulse Rate [Finger] 88 Respiratory Rate 16 17 Respiratory Effort / Characteristics Non-Labored Spontaneous Respiratory Depth Normal Respiratory Pattern Regular Blood Pressure 131/73 Blood Pressure [Left Arm] 108/57 L Blood Pressure Mean 92 Blood Pressure Mean [Left Arm] 74 Blood Pressure Position [Left Arm] Lying Pulse Oximetry 95 94 96 Oxygen Delivery Method Room Air Room Air Sepsis Recent Fever Within 48 Hours No Sepsis New/Unexplained Change in Mental Status No Sepsis Action Taken by Nursing No Action Required 04/17/22 20:00 04/17/22 22:00 Temperature Temperature Source Pulse Rate Pulse Rate [Finger] 79 82 Respiratory Rate 20 18 Respiratory Effort / Characteristics Non-Labored Spontaneous Respiratory Depth Normal Respiratory Pattern Blood Pressure Blood Pressure [Left Arm] 119/34 L 129/69 Blood Pressure Mean Blood Pressure Mean [Left Arm] 62 89 Blood Pressure Position [Left Arm] Pulse Oximetry 95 96 Oxygen Delivery Method Sepsis Recent Fever Within 48 Hours Sepsis New/Unexplained Change in Mental Status Sepsis Action Taken by Nursing Laboratory Data Attestation: I reviewed the patient's lab results. Result diagrams: 04/17/22 18:15 04/17/22 22:10 Lab Results 04/17/22 04/17/22 04/17/22 Range/Units 18:15 18:15 18:15 WBC 9.33 (4.8-10.8) K/ul RBC 4.29 (3.93-5.22) M/uL Hgb 12.1 (12.0-16.0) g/dl Hct 37.8 (34.1-44.9) % MCV 88.1 (80.0-100.0) fL MCH 28.2 (25.0-34.0) pg MCHC 32.0 (32.0-36.0) g/dL RDW Std Deviation 49.7 H (36.4-46.3) fL RDW Coeff of Aleah 15.3 H (11.5-14.5) % Plt Count 264 (130-400) K/uL MPV 9.8 (9.4-12.3) fL Immature Gran % (Auto) 0.2 % Neut % (Auto) 74.9 % Lymph % (Auto) 14.8 % [place] % (Auto) 6.6 % Eos % (Auto) 3.0 % Baso % (Auto) 0.5 % Neut # (Auto) 6.98 H (1.4-6.5) K/uL Lymph # (Auto) 1.38 (1.2-3.4) K/uL [place] # (Auto) 0.62 (0.24-0.82) K/uL Eos # (Auto) 0.28 (0-0.50) K/uL Baso # (Auto) 0.05 (0-0.2) K/uL Immature Gran # (Auto) 0.02 (0.00-0.02) K/uL Sodium Cancelled Potassium Cancelled Chloride Cancelled Carbon Dioxide Cancelled Anion Gap Cancelled BUN Cancelled Creatinine Cancelled Est Cr Clr Drug Dosing Cancelled Est GFR ( Amer) Cancelled Est GFR (Non-Af Amer) Cancelled BUN/Creatinine Ratio Cancelled Glucose Cancelled POC Glucose (70-99) mg/dl Lactate (0.4-2.0) mmol/L Calcium Cancelled Phosphorus Cancelled Magnesium Cancelled Total Bilirubin Cancelled AST Cancelled ALT Cancelled Alkaline Phosphatase Cancelled Total Creatine Kinase 58 (26-192) U/L Total Protein Cancelled Albumin Cancelled Globulin Cancelled Albumin/Globulin Ratio Cancelled Lipase 46 (11-82) U/L Procalcitonin (0-0.5) ng/ml TSH 0.424 (0.300-4.500) uIu/ml SARS-CoV-2, RNA, NAAT (NEGATIVE) 04/17/22 04/17/22 04/17/22 Range/Units 19:08 20:34 20:41 WBC (4.8-10.8) K/ul RBC (3.93-5.22) M/uL Hgb (12.0-16.0) g/dl Hct (34.1-44.9) % MCV (80.0-100.0) fL MCH (25.0-34.0) pg MCHC (32.0-36.0) g/dL RDW Std Deviation (36.4-46.3) fL RDW Coeff of Aleah (11.5-14.5) % Plt Count (130-400) K/uL MPV (9.4-12.3) fL Immature Gran % (Auto) % Neut % (Auto) % Lymph % (Auto) % [place] % (Auto) % Eos % (Auto) % Baso % (Auto) % Neut # (Auto) (1.4-6.5) K/uL Lymph # (Auto) (1.2-3.4) K/uL [place] # (Auto) (0.24-0.82) K/uL Eos # (Auto) (0-0.50) K/uL Baso # (Auto) (0-0.2) K/uL Immature Gran # (Auto) (0.00-0.02) K/uL Sodium 133 L Potassium 7.3 H* Chloride 105 Carbon Dioxide 20 L Anion Gap 8 BUN 31 H Creatinine 1.81 H Est Cr Clr Drug Dosing 41.7 Est GFR ( Amer) 33.9 Est GFR (Non-Af Amer) 29.2 BUN/Creatinine Ratio 17.1 Glucose 237 H POC Glucose 239 H (70-99) mg/dl Lactate (0.4-2.0) mmol/L Calcium 9.8 Phosphorus 3.8 Magnesium 1.7 Total Bilirubin 0.3 AST 10 L ALT 11 Alkaline Phosphatase 91 Total Creatine Kinase (26-192) U/L Total Protein 7.7 Albumin 4.0 Globulin 3.7 Albumin/Globulin Ratio 1.1 Lipase (11-82) U/L Procalcitonin (0-0.5) ng/ml TSH (0.300-4.500) uIu/ml SARS-CoV-2, RNA, NAAT NEGATIVE (NEGATIVE) 04/17/22 04/17/22 04/17/22 Range/Units 22:10 22:10 22:22 WBC (4.8-10.8) K/ul RBC (3.93-5.22) M/uL Hgb (12.0-16.0) g/dl Hct (34.1-44.9) % MCV (80.0-100.0) fL MCH (25.0-34.0) pg MCHC (32.0-36.0) g/dL RDW Std Deviation (36.4-46.3) fL RDW Coeff of Aleah (11.5-14.5) % Plt Count (130-400) K/uL MPV (9.4-12.3) fL Immature Gran % (Auto) % Neut % (Auto) % Lymph % (Auto) % [place] % (Auto) % Eos % (Auto) % Baso % (Auto) % Neut # (Auto) (1.4-6.5) K/uL Lymph # (Auto) (1.2-3.4) K/uL [place] # (Auto) (0.24-0.82) K/uL Eos # (Auto) (0-0.50) K/uL Baso # (Auto) (0-0.2) K/uL Immature Gran # (Auto) (0.00-0.02) K/uL Sodium Potassium 6.7 H* Chloride Carbon Dioxide Anion Gap BUN Creatinine Est Cr Clr Drug Dosing Est GFR ( Amer) Est GFR (Non-Af Amer) BUN/Creatinine Ratio Glucose POC Glucose (70-99) mg/dl Lactate 2.0 (0.4-2.0) mmol/L Calcium Phosphorus Magnesium Total Bilirubin AST ALT Alkaline Phosphatase Total Creatine Kinase (26-192) U/L Total Protein Albumin Globulin Albumin/Globulin Ratio Lipase (11-82) U/L Procalcitonin 0.06 (0-0.5) ng/ml TSH (0.300-4.500) uIu/ml SARS-CoV-2, RNA, NAAT (NEGATIVE) Administered Medications Clonazepam (Clonazepam 0.5 Mg Tab) 0.5 mg PO BID SHAMIKA Stop: 05/18/22 00:22 Last Admin: 04/18/22 01:07 Dose: 0.5 mg Documented By: TACO Sodium Chloride (Nss 1000ml) 1,000 mls @ 125 mls/hr IV .Q8H SHAMIKA Stop: 04/18/22 08:22 Last Admin: 04/18/22 00:38 Dose: 125 mls/hr Documented By: TACO Insulin Glargine (Lantus Per Unit Charge) 15 units SQ BID SHAMIKA Stop: 05/18/22 00:22 Last Admin: 04/18/22 01:06 Dose: 15 units Documented By: TACO Co-signed By: Discontinued Medications Sodium Chloride (Nss 1000ml) 1,000 mls @ 999 mls/hr IV .Q1H1M ONE Stop: 04/17/22 19:13 Last Infusion: 04/17/22 19:24 Dose: 0 mls/hr Documented By: Admin: 04/17/22 18:23 Dose: 999 mls/hr Documented By: OAAntoni Insulin Human Regular 10 units (/ Syringe) 9.9 mls @ 3 mls/sec IV ONE STA Stop: 04/17/22 20:12 Last Admin: 04/17/22 20:55 Dose: 3 mls/sec Documented By: OAAntoni Co-signed By: TRACEY Calcium Gluconate () 1,000 mg in 60 mls @ 240 mls/hr IV Q15M SHAMIKA Stop: 04/17/22 20:59 Last Infusion: 04/17/22 21:19 Dose: 0 mls/hr Documented By: Admin: 04/17/22 20:54 Dose: 240 mls/hr Documented By: Infusion: 04/17/22 20:54 Dose: 240 mls/hr Documented By: Admin: 04/17/22 20:39 Dose: 240 mls/hr Documented By: Infusion: 04/17/22 20:39 Dose: 240 mls/hr Documented By: Admin: 04/17/22 20:30 Dose: 240 mls/hr Documented By: OAM Ceftriaxone Sodium (Rocephin) 2,000 mg in 70 mls @ 140 mls/hr IV NOW STA Stop: 04/17/22 22:14 Last Infusion: 04/17/22 22:49 Dose: 0 mls/hr Documented By: Admin: 04/17/22 22:18 Dose: 140 mls/hr Documented By: MT Metronidazole (Metronidazole 500 Mg Tab) 500 mg PO NOW STA Stop: 04/17/22 21:46 Last Admin: 04/17/22 22:18 Dose: 500 mg Documented By: MT Patiromer (Patiromer Calcium Sorbitex 8.4 Gm Pack) 8.4 gm PO NOW STA Stop: 04/17/22 23:11 Last Admin: 04/17/22 23:45 Dose: 8.4 gm Documented By: KML Imaging Data Radiologist's Impression: Pelvis X-Ray 04/17/22 18:39 SINGLE VIEW PELVIS CLINICAL HISTORY: Bilateral hip pain. Recent falls. FINDINGS: 2 AP views of the pelvis are compared to study dated 11/24/2021. The skeletal structures are well mineralized for age. There is no radiographic evidence of acute fracture involving the hips or bony pelvis. Mild degenerative change and joint space narrowing is seen in the hips, left greater than right. There is mild degenerative sclerosis of the sacroiliac joints. The overlying soft tissues are within normal limits. Phleboliths are noted in the pelvis. IMPRESSION: No acute bony abnormality is identified. Electronically signed by: Gaurav Fisher M.D. 04/17/2022 7:51 PM Abdomen/Pelvis CT 04/17/22 20:14 CT SCAN OF THE ABDOMEN AND PELVIS WITHOUT IV CONTRAST CLINICAL HISTORY: Generalized weakness. Dysuria. Acute on chronic renal insufficiency. COMPARISON STUDY: Abdominal CT dated 02/18/2022. TECHNIQUE: CT scan of the abdomen and pelvis is performed from the lung bases to the proximal femora. Images are reviewed in the axial, sagittal, and coronal planes. IV contrast was not administered for this examination. Note that the examination is suboptimal without oral and IV contrast. A dose lowering technique was utilized adhering to the principles of ALARA. CT DOSE: 1858.28 mGy.cm FINDINGS: Lung bases: The heart is normal in size and without pericardial effusion. Tiny lower lobe pulmonary nodules are unchanged and measure up to 3 mm. There are scattered calcified granulomas. The lung bases are otherwise clear noting mild bibasilar atelectasis. Liver: The unenhanced liver is enlarged measuring 21.2 cm in length. The liver is otherwise normal in contour and attenuation. There is no intrahepatic biliary ductal dilatation. Gallbladder: Unremarkable. Spleen: Normal in size and attenuation. There are calcified splenic granulomas. Pancreas: The unenhanced pancreas is moderately atrophic and grossly unremarkable. Adrenal glands: Unremarkable. Kidneys: The unenhanced kidneys are atrophic and without hydronephrosis. There are no renal calculi identified. There is no evidence of contour deforming renal mass lesion. Foci of cortical scarring are noted in the right kidney. Abdominal vasculature: The abdominal aorta is normal in course and caliber noting moderate atherosclerotic calcification. The right iliac vein is diminutive versus absent. Collateral veins are present within the perineal and right lower quadrant abdominal wall soft tissues. Bowel: There is moderate colonic diverticulosis. Infiltration and trace pericolonic fluid is seen involving the distal descending colon on image #304 an consistent with acute diverticulitis. No organized fluid collection is seen to suggest abscess. There is moderate colonic fecal retention. No bowel obstruction is seen. The appendix is well-visualized and normal. Duodenal diverticula are noted. Peritoneum: There is no intraperitoneal free air or abdominal ascites. There is a small fat-containing umbilical hernia. Lymphadenopathy: None. Pelvic viscera: The bladder is distended but otherwise normal-appearing. The uterus and adnexa are normal as visualized. Skeletal structures: The skeletal structures are osteopenic. There is mild lumbosacral spondylosis. No lytic or blastic lesions are seen. IMPRESSION: 1. There is colonic diverticulosis with mild acute diverticulitis of the distal descending colon. 2. No intraperitoneal free air is identified and there is no organized fluid collection to suggest abscess on this unenhanced examination. 3. Bladder distention. 4. Additional findings as above. ACT 112: Negative or not required by law. Electronically signed by: Gaurav Fisher M.D. 04/17/2022 9:33 PM Discharge Plan Visit Data Chief Complaint: Leg Weakness, Bilateral Stated Complaint: ARMS/HANDS SHAKY, KNEES GIVING OUT. WEAKNESS ED Provider: Sidney Langley Discharge Problem: Hyperkalemia, Diverticulitis, Acute on chronic renal insufficiency Patient Disposition: Admitted As Inpatient Discharge Instructions Interventions: ED Discharge Assessment Last Done: 04/17/22 23:43
--- NOTE | 2022-04-17 19:53 | XRay Report ---
SINGLE VIEW PELVIS CLINICAL HISTORY: Bilateral hip pain. Recent falls. FINDINGS: 2 AP views of the pelvis are compared to study dated 11/24/2021. The skeletal structures are well mineralized for age. There is no radiographic evidence of acute fracture involving the hips or bony pelvis. Mild degenerative change and joint space narrowing is seen in the hips, left greater genaro n right. There is mild degenerative sclerosis of the sacroiliac joints. The overlying soft tissues ar e within normal limits. Phleboliths are noted in the pelvis. IMPRESSION: No acute bony abnormality is identified. Electronically signed by: Gaurav Fisher M.D. 04/17/2022 7:51 PM
[2022-04-17 20:06] LABS: Albumin Globulin Ratio 1.1 (0.9-2); BUN Creatinine Ratio 17.1 (10-20); Bilirubin,Total 0.3 mg/dl (0.2-1.0); Calcium 9.8 mg/dl (8.5-10.1); Creatinine Clr Calc Pharmacy 41.7 ml/min; Est GFR (African American) 33.9 ml/min; Est GFR (Non-African American) 29.2 ml/min; Globulin 3.7 gm/dl (2.5-4.0); Magnesium 1.7 mg/dl (1.7-2.4); Phosphorus 3.8 mg/dl (2.5-4.9); Potassium 7.3 mmol/L (3.5-5.1); Total Protein 7.7 gm/dl (6.0-8.3)
[2022-04-17] MEDS ORDERED: INSULIN HUMAN REGULAR PER UNIT 10 UNITS in SYRINGE 9.9 ML IV STA (20:11)
[2022-04-17] MEDS: CALCIUM GLUCONATE 1,000 MG/60 ML BAG IV SCH ×3 (20:30→20:54)
--- NOTE | 2022-04-17 21:36 | CT Scan Report ---
CT SCAN OF THE ABDOMEN AND PELVIS WITHOUT IV CONTRAST CLINICAL HISTORY: Generalized weakness. Dysuria. Acute on chronic renal insufficiency. COMPARISON STUDY: Abdominal CT dated 02/18/2022. TECHNIQUE: CT scan of the abdomen and pelvis is performed from the lung bases to the proximal femora. Images are reviewed in the axial, sagittal, and coronal planes. IV contrast was not administered for this examination. Note that the examination is suboptimal without oral and IV contrast. A dose lower ing technique was utilized adhering to the principles of ALARA. CT DOSE: 1858.28 mGy.cm FINDINGS: Lung bases: The heart is normal in size and without pericardial effusion. Tiny lower lobe pulmonary n odules are unchanged and measure up to 3 mm. There are scattered calcified granulomas. The lung bases are otherwise clear noting mild bibasilar atelectasis. Liver: The unenhanced liver is enlarged measuring 21.2 cm in length. The liver is otherwise normal in contour and attenuation. There is no intrahepatic biliary ductal dilatation. Gallbladder: Unremarkable. Spleen: Normal in size and attenuation. There are calcified splenic granulomas. Pancreas: The unenhanced pancreas is moderately atrophic and grossly unremarkable. Adrenal glands: Unremarkable. Kidneys: The unenhanced kidneys are atrophic and without hydronephrosis. There are no renal calculi i dentified. There is no evidence of contour deforming renal mass lesion. Foci of cortical scarring are noted in the right kidney. Abdominal vasculature: The abdominal aorta is normal in course and caliber noting moderate atheroscle rotic calcification. The right iliac vein is diminutive versus absent. Collateral veins are present w ithin the perineal and right lower quadrant abdominal wall soft tissues. Bowel: There is moderate colonic diverticulosis. Infiltration and trace pericolonic fluid is seen inv olving the distal descending colon on image #304 an consistent with acute diverticulitis. No organize d fluid collection is seen to suggest abscess. There is moderate colonic fecal retention. No bowel ob struction is seen. The appendix is well-visualized and normal. Duodenal diverticula are noted. Peritoneum: There is no intraperitoneal free air or abdominal ascites. There is a small fat-containin g umbilical hernia. Lymphadenopathy: None. Pelvic viscera: The bladder is distended but otherwise normal-appearing. The uterus and adnexa are no rmal as visualized. Skeletal structures: The skeletal structures are osteopenic. There is mild lumbosacral spondylosis. N o lytic or blastic lesions are seen. IMPRESSION: 1. There is colonic diverticulosis with mild acute diverticulitis of the distal descending colon. 2. No intraperitoneal free air is identified and there is no organized fluid collection to suggest ab scess on this unenhanced examination. 3. Bladder distention. 4. Additional findings as above. ACT 112: Negative or not required by law. Electronically signed by: Gaurav Fisher M.D. 04/17/2022 9:33 PM
[2022-04-17] MEDS ORDERED: cefTRIAXone SODIUM 2,000 MG/70 ML BAG IV STA (21:45)
[2022-04-17] MEDS ORDERED: metroNIDAZOLE 500 MG TAB PO STA (21:45)
--- NOTE | 2022-04-17 22:59 | History & Physical Report ---
Date of Service April 17, 2022 Assessment & Plan (1) Hyperkalemia: Plan: 61yo female presenting with muscle pain and cramping. Found to be hyperkalemic with initial K of 7.3, confirmed on repeat to be 6.7. No EKG changes. Most likely secondary to medication effects - patient recently placed on Bactrim for treatment of hidradenitis suppurativa - Bactrim can interfere with renal excretion of K. Also had her Spironolactone dose increased from 100mg to 200mg daily. Patient is on NSAIDS as well as ARB as well which can be contributing to hyperkalemia. Also with mild increase in Cr from baseline. Patient has been treated medically with Ca gluconate, insulin, IVF as well as Patiromer. -Admit to medical with telemetry -Trend BMP q 8 hours -Hold Spironolactone, Bactrim as well as Losartan and Flurbiprofen -Continue IVF -Low K diet (2) Diverticulitis: Plan: Incidental finding of acute uncomplicated diverticulitis on imaging. Patient is non-toxic in appearance. No abdominal pain or tenderness on exam. She is on Humira injections for her history of hidradenitis suppurativa therefore will treat with antibiotics -Continue Ceftriaxone and Flagyl initiated in ER. -Patient with multiple drug allergies to antibiotics -makes treatment somewhat challenging. She did receive a dose of Ceftriaxone and Flagyl in ER and was able to tolerate (3) Hidradenitis suppurativa: Plan: Patient with severe stage III hidradenitis involving the right groin, labia, buttock and perineum. She follows with Dermatology - is on Humira as well as Bactrim and Spironolactone. -Discontinue Spironolactone and bactrim for now given hyperkalemia -Difficult to treat given medication allergies - ?trial of Doxycycline with topical clindamycin? -Continue followup with Dermatology (4) Obstructive sleep apnea: Plan: Chronic -Continue nocturnal CPAP with O2 4L (5) Anxiety and depression: Plan: Chronic -Continue Amitryptyline qHS -Continue Clonazepam 0.5mg po BID -Continue Prazosin -Continue Seroquel (6) Asthma: Plan: Chronic. Patient denies cough or SOB at this time. No wheezing on exam -Continue Albuterol as needed -Continue Fluticasone/Vilanterol (7) Hypertension: Plan: Chronic. Blood pressure elevated at 160/75 -Continue Metoprolol 12.5mg po BID -Holding Spironolactone and Losartan for now -Continue to monitor BP (8) Hyperlipidemia: Plan: Chronic -Continue Atorvastatin qHS (9) GERD (gastroesophageal reflux disease): Plan: Chronic. Patient reports increased GI symptoms lately -Continue Pepcid - change to 40mg daily for renal adjustment (10) Restless legs syndrome: Plan: -Continue Baclofen qHS -Continue Lyrica 100mg po BID -Continue Ropinirole - recently increased due to motor restleness impacting sleep (11) Hypothyroidism: Plan: Chronic. 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 She is scheduled to see GI for additional workup History of Present Illness Chief Complaint: leg cramping Primary Care Provider: Ethan Karimi MD Calista Pickering is a 61yo female with history of DM, HTN, GERD, Asthma, Anxiety, VERA and Hidradenitis suppurativa presenting with hyperkalemia. On 04/15/22 patient fell at home x 2. She denies loss of consciousness or head trauma. On 04/16/22 she felt very tired and fatigued. Today she felt that her legs were very weak and she had some muscle spasms and cramping. Patient came to the ER with these complaints. Found to be hyperkalemic with K of 7.3. Patient with chronic nausea, intermittent muscle cramps and worsening heartburn symptoms. Otherwise denies chest pain, palpitations, cough, SOB, abdominal pain, diarrhea or constipation. She is eating well but has not been drinking as much fluid as she usually does. She has normal UOP, reports her urine is dark sometimes. She reports having a flare up of her hidradenitis suppurativa as of March 27. She was seen by Dermatology for this issue on 04/07/22 and her Bactrim was increased to Bactrim DS 1 tab po BID x 14 days. Her spironolactone was also increased from 100mg po daily to 100mg po BID. Patient is on Losartan as well as Flurbiprofen as well. EKG with no acute changes. Patient medically treated in the ER with IVF, Ca gluconate, Insulin and Patiromer ER Course: NSS x 1L, Calcium gluconate 1gm x 2, Insulin regular x 10u, Ceftriaxone x 2gm, Flagyl x 500mg, Patiromer x 8.4gm Allergies Allergy/AdvReac Type Severity Reaction Status Date / Time adhesive Allergy Intermediate "eats my Verified 04/17/22 19:59 skin" Aminoglycosides Allergy Intermediate Hives Verified 04/17/22 19:59 azithromycin Allergy Intermediate Hives Verified 04/17/22 19:59 bacitracin Allergy Intermediate RASH Verified 04/17/22 19:59 Cephalosporins Allergy Intermediate Hives Verified 04/17/22 19:59 ciprofloxacin Allergy Intermediate EYE Verified 04/17/22 19:59 SWELLING, "burned my eyelids" erythromycin base Allergy Intermediate HIVES Verified 04/17/22 19:59 minocycline Allergy Intermediate HIVES Verified 04/17/22 19:59 mupirocin Allergy Intermediate RASH Verified 04/17/22 19:59 neomycin Allergy Intermediate RASH Verified 04/17/22 19:59 Penicillins Allergy Intermediate HIVES Verified 04/17/22 19:59 polymyxin B Allergy Intermediate RASH Verified 04/17/22 19:59 Quinolones Allergy Intermediate Hives Verified 04/17/22 19:59 tetracycline Allergy Intermediate HIVES Verified 04/17/22 19:59 hydroxyzine Allergy Unknown PT DOESN'T Verified 04/17/22 19:58 REMEMBER REACTION topiramate AdvReac Severe SOB,DIZZINE Verified 04/17/22 19:59 SS aspirin AdvReac Intermediate NOSEBLEEDS- Verified 04/17/22 19:59 CAN TAKE IBUPROFEN duloxetine AdvReac Intermediate slurred Verified 04/17/22 19:59 speech/memory loss/ "like I was drunk" Home Medications Medication Instructions Recorded Confirmed Type dexlansoprazole 60 mg 60 mg PO QAM #90 caps 01/24/21 04/17/22 Rx capsule,biphase delayed release (Dexilant) docusate sodium 100 mg tablet 100 mg PO DAILY 02/28/21 04/17/22 History (Stool Softener) Incentive Spirometer #1 ea 03/14/21 04/15/22 Rx blood-glucose meter,continuous 06/17/21 04/15/22 History (Dexcom G6 Electro Winning Operator) blood-glucose sensor (Dexcom G6 06/17/21 04/15/22 History Sensor) blood-glucose transmitter (Dexcom 06/17/21 04/15/22 History G6 Transmitter) albuterol sulfate 90 mcg/actuation 1 - 2 puff inhalation Q4H PRN 06/24/21 04/17/22 Rx aerosol inhaler (Ventolin HFA) shortness of breath #8 grams fluticasone propionate 115 2 puff inhalation BID 07/04/21 04/17/22 History mcg-salmeterol 21 mcg/actuation HFA inhaler (Advair HFA) metoprolol tartrate 25 mg tablet 12.5 mg PO BID #30 tabs 08/22/21 04/17/22 Rx clopidogrel 75 mg tablet 75 mg PO HS #30 tabs 09/09/21 04/17/22 Rx levothyroxine 200 mcg tablet 200 mcg PO QAM 09/29/21 04/17/22 History losartan 50 mg tablet 50 mg PO DAILY 09/29/21 04/17/22 History prazosin 5 mg capsule 5 mg PO DAILY 09/29/21 04/17/22 History vortioxetine 20 mg tablet 20 mg PO BID 09/29/21 04/17/22 History (Trintellix) clonazepam 0.5 mg tablet 0.5 mg PO BID 10/22/21 04/17/22 History insulin aspart U-100 100 unit/mL 7 unit subcut TID 10/22/21 04/17/22 History (3 mL) subcutaneous pen (Novolog Flexpen U-100 Insulin aspart) insulin glargine 100 unit/mL (3 18 unit subcut BID 10/22/21 04/17/22 History mL) subcutaneous pen (Lantus Solostar U-100 Insulin) quetiapine 50 mg tablet (Seroquel) 50 mg PO BID 10/22/21 04/17/22 History atorvastatin 80 mg tablet 80 mg PO HS #90 tabs 11/04/21 04/17/22 Rx quetiapine 400 mg tablet 400 mg PO HS #30 tabs 12/18/21 04/17/22 Rx amitriptyline 25 mg tablet 25 mg PO HS 01/06/22 04/17/22 History dulaglutide 3 mg/0.5 mL 3 mg (0.5 mL) subcut WK 90 days 01/07/22 04/17/22 Rx subcutaneous pen injector #45 mL baclofen 20 mg tablet 20 mg PO HS jaw spasms/neuralgia 01/21/22 04/17/22 History adalimumab 40 mg/0.4 mL See Rx Instructions subcut 01/22/22 04/17/22 Rx subcutaneous pen kit .COMPLEX #4 ea flurbiprofen 100 mg tablet 50 mg PO BID 02/09/22 04/17/22 History metformin 500 mg tablet,extended 1,000 mg PO BID 02/09/22 04/17/22 History release 24 hr famotidine 40 mg tablet 40 mg PO BID #60 tabs 03/06/22 04/17/22 Rx pregabalin 100 mg capsule 100 mg PO BID #60 caps 04/01/22 04/17/22 Rx ropinirole 0.5 mg tablet 1.5 mg PO HS 04/07/22 04/17/22 History spironolactone 100 mg tablet 100 mg PO BID 30 days #60 tabs 04/07/22 04/17/22 Rx sulfamethoxazole 800 1 tab PO BID 14 days #28 tabs 04/07/22 04/17/22 Rx mg-trimethoprim 160 mg tablet (Bactrim DS) pen needle, diabetic 32 gauge x #500 ea 04/17/22 Rx 1/4" (UltiCare Pen Needle) Past Med/Surg History Medical History [id number] kidney injury Change in mental status Deep vein thrombosis Degenerative disc disease Dehydration Delayed gastric emptying Diarrhea Diverticulitis Enlarged heart Generalized anxiety disorder with panic attacks Generalized muscle weakness Hidradenitis suppurativa History of COVID-19 Left lumbar radiculopathy Morbid obesity with BMI of 45.0-49.9, adult Morbid obesity with BMI of 50.0-59.9, adult Nausea & vomiting Osteopenia Personal history of diabetic foot ulcer Psychiatric care Pulmonary nodule Restrictive lung disease Sleep apnea SOB (shortness of breath) on exertion Solitary thyroid nodule Spinal stenosis Thyroid nodule Venous malformation Vitamin B12 deficiency Surgical History H/O ligation of vein History of bilateral cataract extraction History of colonoscopy with polypectomy History of esophagogastroduodenoscopy (EGD) History of tooth extraction History of umbilical hernia repair Status post trigger finger release Family History Aunt Breast cancer Uncle Family hx of colon cancer Colorectal cancer Mother Family history of diabetes mellitus Family history of reaction to anesthesia Stroke Diabetes Heart disease Hypertension Father Prostate cancer Cancer Grandfather (Maternal) Myocardial infarction Sister Family history of diabetes mellitus Family history of reaction to anesthesia Diabetes Hypertension Family/Other Family hx of colon cancer Brother Family history of reaction to anesthesia Diabetes Denies family history of Ovarian cancer Uterine cancer Social History Smoking Status: Never smoker Second Hand Exposure: No; Do You Dip or Chew Tobacco: No; Tobacco Cessation Education Requested by Patient: No Hx Alcohol Use: No Hx Substance Use: No Preferred Language: Irish Communication Ability: Effective Visual Impairment: No Limitations Hearing Ability: Normal [employer] Maintenance Required: No Beliefs That Will Affect Care: None marital status: Single Current Living Situation: Alone Current Living Situation Comment: [facility] current occupational status: disabled How many Children do You have: 0 Other Information That Helps Us Care for You: No Feels Safe at Home: Yes Safety Concerns: Feels Safe At This Time during the past year weight has: decreased > 10 lbs Seatbelt Use: always Sunscreen Use: Yes Assistive Devices: CPAP, Glasses and Walker Assistive Devices Comment: Wears CPAP HS Review of Systems Review of Systems: All systems reviewed & are unremarkable except as noted in HPI & below Physical Exam Physical Exam: General: patient resting comfortably, NAD, non-toxic in appearance, AA&O x 4 Skin: warm, dry, intact, no rashes or lesions HEENT: NC/AT, PERRL, EOMI, anicteric sclera, conjunctiva without injection, external ear normal to inspection and nontender, nares patent, moist mucus membranes, dentition intact, no oropharyngeal lesions, neck supple, trachea midline, no LAD, no thyromegaly, no JVD Heart: +S1/S2, regular, no m/r/g Lungs: equal air entry bilaterally, no rales/rhonchi/wheezes Abd: +BS, soft, NT/ND, no masses/organomegaly/ascites Ext: warm, 2+ pulses in UE/LE bilaterally, no clubbing/cyanosis or edema Neuro: nonfocal, patient AA&O x 4, speech intact, no facial droop, moving all extremities on command with equal strength 5/5 Results & Data Results & Data ([facility]) Vital Signs (Past 12 Hours) Vital Signs Temp Pulse Pulse Resp BP BP Pulse Ox 04/17/22 22:00 82 18 129/69 96 04/17/22 20:00 79 20 119/34 L 95 04/17/22 18:23 88 17 108/57 L 96 04/17/22 18:21 94 04/17/22 16:48 36.9 C 95 H 16 131/73 95 O2 Del Method 04/17/22 22:00 04/17/22 20:00 04/17/22 18:23 Room Air 04/17/22 18:21 Room Air 04/17/22 16:48 Laboratory Results Laboratory Results WBC 9.33 K/ul (4.8-10.8) 04/17/22 18:15 RBC 4.29 M/uL (3.93-5.22) 04/17/22 18:15 Hgb 12.1 g/dl (12.0-16.0) 04/17/22 18:15 Hct 37.8 % (34.1-44.9) 04/17/22 18:15 MCV 88.1 fL (80.0-100.0) 04/17/22 18:15 MCH 28.2 pg (25.0-34.0) 04/17/22 18:15 MCHC 32.0 g/dL (32.0-36.0) 04/17/22 18:15 RDW Std Deviation 49.7 fL (36.4-46.3) H 04/17/22 18:15 RDW Coeff of Aleah 15.3 % (11.5-14.5) H 04/17/22 18:15 Plt Count 264 K/uL (130-400) 04/17/22 18:15 MPV 9.8 fL (9.4-12.3) 04/17/22 18:15 Immature Gran % (Auto) 0.2 % 04/17/22 18:15 Neut % (Auto) 74.9 % 04/17/22 18:15 Lymph % (Auto) 14.8 % 04/17/22 18:15 Gila % (Auto) 6.6 % 04/17/22 18:15 Eos % (Auto) 3.0 % 04/17/22 18:15 Baso % (Auto) 0.5 % 04/17/22 18:15 Neut # (Auto) 6.98 K/uL (1.4-6.5) H 04/17/22 18:15 Lymph # (Auto) 1.38 K/uL (1.2-3.4) 04/17/22 18:15 Gila # (Auto) 0.62 K/uL (0.24-0.82) 04/17/22 18:15 Eos # (Auto) 0.28 K/uL (0-0.50) 04/17/22 18:15 Baso # (Auto) 0.05 K/uL (0-0.2) 04/17/22 18:15 Immature Gran # (Auto) 0.02 K/uL (0.00-0.02) 04/17/22 18:15 Sodium 133 mmol/L (136-145) L 04/17/22 19:08 Potassium 6.7 mmol/L (3.5-5.1) H* 04/17/22 22:10 Chloride 105 mmol/L (98-107) 04/17/22 19:08 Carbon Dioxide 20 mmol/L (21-32) L 04/17/22 19:08 Anion Gap 8 (3-11) 04/17/22 19:08 BUN 31 mg/dl (6-23) H 04/17/22 19:08 Creatinine 1.81 mg/dl (0.6-1.2) H 04/17/22 19:08 Est Cr Clr Drug Dosing 41.7 ml/min 04/17/22 19:08 Est GFR ( Amer) 33.9 ml/min 04/17/22 19:08 Est GFR (Non-Af Amer) 29.2 ml/min 04/17/22 19:08 BUN/Creatinine Ratio 17.1 (10-20) 04/17/22 19:08 Glucose 237 mg/dl (70-99(Fasting)) H 04/17/22 19:08 POC Glucose 214 mg/dl (70-99) H 04/18/22 00:15 Lactate 2.0 mmol/L (0.4-2.0) 04/17/22 22:22 Calcium 9.8 mg/dl (8.5-10.1) 04/17/22 19:08 Phosphorus 3.8 mg/dl (2.5-4.9) 04/17/22 19:08 Magnesium 1.7 mg/dl (1.7-2.4) 04/17/22 19:08 Total Bilirubin 0.3 mg/dl (0.2-1.0) 04/17/22 19:08 AST 10 U/L (13-39) L 04/17/22 19:08 ALT 11 U/L (7-52) 04/17/22 19:08 Alkaline Phosphatase 91 U/L (34-104) 04/17/22 19:08 Total Creatine Kinase 58 U/L (26-192) 04/17/22 18:15 Total Protein 7.7 gm/dl (6.0-8.3) 04/17/22 19:08 Albumin 4.0 gm/dl (3.4-5.0) 04/17/22 19:08 Globulin 3.7 gm/dl (2.5-4.0) 04/17/22 19:08 Albumin/Globulin Ratio 1.1 (0.9-2) 04/17/22 19:08 Lipase 46 U/L (11-82) 04/17/22 18:15 Procalcitonin 0.06 ng/ml (0-0.5) 04/17/22 22:10 TSH 0.424 uIu/ml (0.300-4.500) 04/17/22 18:15 SARS-CoV-2, RNA, NAAT NEGATIVE (NEGATIVE) 04/17/22 20:41 Impressions Pelvis X-Ray 04/17/22 18:39 SINGLE VIEW PELVIS CLINICAL HISTORY: Bilateral hip pain. Recent falls. FINDINGS: 2 AP views of the pelvis are compared to study dated 11/24/2021. The skeletal structures are well mineralized for age. There is no radiographic evidence of acute fracture involving the hips or bony pelvis. Mild degenerative change and joint space narrowing is seen in the hips, left greater than right. There is mild degenerative sclerosis of the sacroiliac joints. The overlying soft tissues are within normal limits. Phleboliths are noted in the pelvis. IMPRESSION: No acute bony abnormality is identified. Electronically signed by: Gaurav Fisher M.D. 04/17/2022 7:51 PM Abdomen/Pelvis CT 04/17/22 20:14 CT SCAN OF THE ABDOMEN AND PELVIS WITHOUT IV CONTRAST CLINICAL HISTORY: Generalized weakness. Dysuria. Acute on chronic renal insufficiency. COMPARISON STUDY: Abdominal CT dated 02/18/2022. TECHNIQUE: CT scan of the abdomen and pelvis is performed from the lung bases to the proximal femora. Images are reviewed in the axial, sagittal, and coronal planes. IV contrast was not administered for this examination. Note that the examination is suboptimal without oral and IV contrast. A dose lowering technique was utilized adhering to the principles of ALARA. CT DOSE: 1858.28 mGy.cm FINDINGS: Lung bases: The heart is normal in size and without pericardial effusion. Tiny lower lobe pulmonary nodules are unchanged and measure up to 3 mm. There are scattered calcified granulomas. The lung bases are otherwise clear noting mild bibasilar atelectasis. Liver: The unenhanced liver is enlarged measuring 21.2 cm in length. The liver is otherwise normal in contour and attenuation. There is no intrahepatic biliary ductal dilatation. Gallbladder: Unremarkable. Spleen: Normal in size and attenuation. There are calcified splenic granulomas. Pancreas: The unenhanced pancreas is moderately atrophic and grossly unremarkable. Adrenal glands: Unremarkable. Kidneys: The unenhanced kidneys are atrophic and without hydronephrosis. There are no renal calculi identified. There is no evidence of contour deforming renal mass lesion. Foci of cortical scarring are noted in the right kidney. Abdominal vasculature: The abdominal aorta is normal in course and caliber noting moderate atherosclerotic calcification. The right iliac vein is diminutive versus absent. Collateral veins are present within the perineal and right lower quadrant abdominal wall soft tissues. Bowel: There is moderate colonic diverticulosis. Infiltration and trace pericolonic fluid is seen involving the distal descending colon on image #304 an consistent with acute diverticulitis. No organized fluid collection is seen to suggest abscess. There is moderate colonic fecal retention. No bowel obstruction is seen. The appendix is well-visualized and normal. Duodenal diverticula are noted. Peritoneum: There is no intraperitoneal free air or abdominal ascites. There is a small fat-containing umbilical hernia. Lymphadenopathy: None. Pelvic viscera: The bladder is distended but otherwise normal-appearing. The uterus and adnexa are normal as visualized. Skeletal structures: The skeletal structures are osteopenic. There is mild lumbosacral spondylosis. No lytic or blastic lesions are seen. IMPRESSION: 1. There is colonic diverticulosis with mild acute diverticulitis of the distal descending colon. 2. No intraperitoneal free air is identified and there is no organized fluid collection to suggest abscess on this unenhanced examination. 3. Bladder distention. 4. Additional findings as above. ACT 112: Negative or not required by law. Electronically signed by: Gaurav Fisher M.D. 04/17/2022 9:33 PM Code Status & VTE Plan VTE Prophylaxis Plan VTE Prophylaxis will be ordered: Yes PG Care Time/CCT Total # of Minutes Spent Total Time Spent with Patient: Total time spent is greater than 50% in coordination of care (as documented) at patient's floor/unit and/or counseling patient: Coding Level of Care Code 40361 Initial Inpt Care Lvl 3 Diagnoses Hyperkalemia E87.5 Diverticulitis K57.92 Hidradenitis suppurativa L73.2 Obstructive sleep apnea G47.33 Anxiety and depression F41.9; F32.A Asthma J45.20 Asthma severity: mild Asthma persistence: intermittent Asthma complication type: uncomplicated Hypertension I10 Hypertension type: unspecified Hyperlipidemia E78.5 GERD (gastroesophageal reflux disease) K21.9 Restless legs syndrome G25.81 Hypothyroidism E03.9 Diabetes mellitus type 2 with complications E11.8 (1) Asthma Asthma severity: mild Asthma persistence: intermittent Asthma complication type: uncomplicated Qualified Code(s): J45.20 - Mild intermittent asthma, uncomplicated (2) Hypertension Hypertension type: unspecified Qualified Code(s): I10 - Essential (primary) hypertension
[2022-04-17] MEDS ORDERED: PATIROMER CALCIUM SORBITEX 8.4 GM PACK PO STA (23:10)
[2022-04-18] MEDS ORDERED: ALBUTEROL HFA 8 GM INHALER INH PRN (00:23)
[2022-04-18] MEDS ORDERED: GLUCOSE 40% GEL 15 GM TUBE PO PRN (00:23)
[2022-04-18] MEDS ORDERED: ONDANSETRON INJ 2 MG/ML 2 ML VIAL IV PRN (00:23)
[2022-04-18] MEDS ORDERED: DEXTROSE 50% 50 ML SYRINGE IV PRN (00:23)
[2022-04-18] MEDS ORDERED: ACETAMINOPHEN 325 MG TAB PO PRN (00:23)
[2022-04-18] MEDS ORDERED: SODIUM CHLORIDE 0.9% 1000ML 1,000 ML IV SCH (00:23)
[2022-04-18] MEDS ORDERED: CARBOHYDRATES FOR HYPOGLYCEMIA PO PRN (00:23)
[2022-04-18] MEDS ORDERED: GLUCAGON FOR INJ 1 MG VIAL SQ PRN (00:23)
[2022-04-18] MEDS ORDERED: GLUCOSE 10 TAB/TUBE PO PRN (00:23)
[2022-04-18] MEDS: LANTUS PER UNIT CHARGE SQ SCH ×3 (01:06→20:53)
[2022-04-18] MEDS: clonazePAM 0.5 MG TAB PO SCH ×3 (01:07→20:15)
[2022-04-18] MEDS: metroNIDAZOLE 500 MG/100 ML BAG IV SCH ×3 (05:40→21:00)
[2022-04-18] MEDS: LEVOTHYROXINE SODIUM 200 MCG TABLET PO SCH (05:40)
[2022-04-18 07:43] LABS: Estimated Average Glucose 183 mg/dl
[2022-04-18 07:52] LABS: BUN Creatinine Ratio 16.9 (10-20); Calcium 10.7 mg/dl (8.5-10.1); Creatinine Clr Calc Pharmacy 55.7 ml/min; Est GFR (African American) 47.9 ml/min; Est GFR (Non-African American) 41.3 ml/min; Potassium 5.8 mmol/L (3.5-5.1)
[2022-04-18] MEDS ORDERED: PATIROMER CALCIUM SORBITEX 8.4 GM PACK PO ONE (08:15)
[2022-04-18] MEDS: INSULIN ASPART PER UNIT SC SCH ×4 (08:53→20:54)
[2022-04-18] MEDS: PREGABALIN 100 MG CAP PO SCH ×2 (08:54→20:15)
[2022-04-18] MEDS: QUEtiapine FUMARATE 25 MG TABLET PO SCH ×2 (08:54→15:05)
[2022-04-18] MEDS: FAMOTIDINE 40 MG TABLET PO SCH (08:54)
[2022-04-18] MEDS: METOPROLOL TARTRATE 25 MG TAB PO SCH ×2 (08:54→20:16)
[2022-04-18] MEDS: DOCUSATE SODIUM 100 MG CAP PO SCH (08:54)
[2022-04-18] MEDS: PRAZOSIN HCL 1 MG CAP PO SCH (08:55)
[2022-04-18] MEDS: FLUTICASONE/VILANTEROL 200/25MCG 14 PUFFS/INHALER INH SCH (08:55)
[2022-04-18] MEDS ORDERED: NON-FORMULARY MEDICATION (Flurbiprofen 100 mg tablet) PO SCH (09:00)
[2022-04-18] MEDS ORDERED: NON-FORMULARY MEDICATION (Fluticasone Propion-Salmeterol [Advair Hfa] 115-21 mcg/actuation INH SCH (09:00)
--- NOTE | 2022-04-18 11:16 | Electrocardiogram Report ---
Test Reason : Blood Pressure : / mmHG Vent. Rate : 082 BPM Atrial Rate : 082 BPM P-R Int : 168 ms QRS Dur : 100 ms QT Int : 360 ms P-R-T Axes : 036 -07 042 degrees QTc Int : 420 ms Normal sinus rhythm Low voltage QRS Poor R wave progression, consider anterior VA vs. lead placement vs. LVH Abnormal ECG When compared with ECG of 09-FEB-2022 15:42, No significant change was found Confirmed by Ethan Abebe ([id number]) on 04/18/2022 11:16:05 AM Referred By: REFERRED SELF Confirmed By:Ethan Abebe
--- NOTE | 2022-04-18 13:03 | Hospitalist Progress Note ---
Date of Service April 18, 2022 Assessment & Plan (1) Hyperkalemia: Plan: 61yo female presenting with muscle pain and cramping. Found to be hyperkalemic with initial K of 7.3, confirmed on repeat to be 6.7. No EKG changes. Most likely secondary to medication effects - patient recently placed on Bactrim for treatment of hidradenitis suppurativa - Bactrim can interfere with renal excretion of K. Also had her Spironolactone dose increased from 100mg daily to bid Patient is on NSAIDS as well as ARB as well which can be contributing to hyperkalemia. Also with mild increase in Cr from baseline. Patient has been treated medically with Ca gluconate, insulin, IVF as well as Patiromer on admission K+ today down to 5.8, OLENA resolving with hem marker down to 1.36 With hyperglycemia--> receiving insulin holding aldactone, losartan and giving NS Muscle cramps improving, no events on tele -continue to trend BMP -give another dose of patiromer this AM -continue to hold Spironolactone, Bactrim as well as Losartan and Flurbiprofen--> would only restart spironolactone cautiously--> her K+ and hem marker were elevated on labs in 02/2022 when on only 100mg daily -can dc IVF -Low K diet -continue insulin for DM which will also drive K+ down (2) Diverticulitis: Plan: Incidental finding of acute uncomplicated diverticulitis on imaging. Patient is non-toxic in appearance. No abdominal pain or tenderness on exam. She is on Humira injections for her history of hidradenitis suppurativa therefore will treat with antibiotics -Continue Ceftriaxone and Flagyl -Patient with multiple drug allergies to antibiotics -makes treatment somewhat challenging. She did receive a dose of Ceftriaxone and Flagyl in ER and was able to tolerate -RECOMMEND F/U WITH COMPRESSION MOLDING MACHINE OPERATOR AFTER DISCHARGE FOR ALLERGY TESTING -HOLD HUmira until treatment completed -ok to continue regular diet I suppose as asymptomatic (3) Acute on chronic renal insufficiency: Plan: hem marker 1.8 on arrival, now down to 1.3 with IVFs and holding meds as above follow BMP -would AVOID all NSAIDs in future (4) Hidradenitis suppurativa: Plan: Patient with severe stage III hidradenitis involving the right groin, labia, buttock and perineum. She follows with Dermatology - is on Humira was well as Bactrim and Spironolactone -Discontinue Spironolactone and bactrim for now given hyperkalemia -received 10 days of Bactrim prior to admission, now on ceftriaxone and flagyl for diverticulitis which will provide some coverage -consider topical clindamycin -as above, would NOT use high dose spironolactone -Continue followup with Dermatology (5) Obstructive sleep apnea: Plan: Chronic -Continue nocturnal CPAP with O2 4L (6) Anxiety and depression: Plan: Chronic -Continue Amitryptyline qHS -Continue Clonazepam 0.5mg po BID -Continue Prazosin -Continue Seroquel -continue Trintellix-must be brought in from home (7) Asthma: Plan: Chronic. Patient denies cough or SOB at this time. No wheezing on exam -Continue Albuterol as needed -Continue Fluticasone/Vilanterol (8) Hypertension: Plan: Chronic. Blood pressure controlled here -Continue Metoprolol 12.5mg po BID -Holding Spironolactone and Losartan for now -Continue to monitor BP (9) Hyperlipidemia: Plan: Chronic -Continue Atorvastatin qHS (10) GERD (gastroesophageal reflux disease): Plan: Chronic. Patient reports increased GI symptoms lately -Continue Pepcid - change to 40mg daily for renal adjustment (11) Restless legs syndrome: Plan: -Continue Baclofen qHS -Continue Lyrica 100mg po BID -Continue Ropinirole - recently increased due to motor restleness impacting sle ep (12) Hypothyroidism: Plan: Chronic. 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 Has only some mild cramps in legs. Is eating and drinking, makes urine only twice a day on usual basis and only has a BM once a week. No BM since admission despite having 2 doses now of patiromer. No events on tele no CP, SOB. Has chronic abd pain and distension Review of Systems 2 Review of Systems: All systems reviewed & are unremarkable except as noted in HPI & below Physical Exam Constitutional: WD/WN, vitals as above + morbidly obese Eyes: + anicteric sclerae Neck: trachea midline, no thyromegaly Respiratory: normal respiratory effort, lungs clear to auscultation Cardiovascular: RRR, no murmur, no edema Chest (Breasts): Chest: normal inspection of chest Gastrointestinal (Abdomen): normal bowel sounds, soft, nontender, no hepatosplenomegaly Musculoskeletal: Extremities: extremities normal to inspection; no cyanosis and no clubbing Skin: + lesion (thickened skin with mild erythema labia bilat,dilated pores,no drainage) large port wine stain RLE and right lower back Neurologic: moves all extremities and awake; no focal motor deficits Psychiatric: A+Ox3, euthymic affect Lymphatic: no lymphedema Results & Data Results & Data ([facility]) Vital Signs (Past 12 Hours) Vital Signs Temp Pulse Pulse Resp BP Pulse Ox O2 Del Method 04/18/22 12:10 36.7 C 90 18 129/78 96 Room Air 04/18/22 07:44 36.9 C 75 18 132/79 99 CPAP 04/18/22 07:14 83 04/18/22 03:28 36.8 C 84 20 124/62 98 CPAP 04/18/22 01:31 92 H 25 H 94 O2 Flow Rate 04/18/22 12:10 04/18/22 07:44 04/18/22 07:14 04/18/22 03:28 4 04/18/22 01:31 Laboratory Results 04/17/22 18:15 04/18/22 07:13 PG Care Time/CCT Total # of Minutes Spent Total Time Spent with Patient: Total time spent is greater than 50% in coordination of care (as documented) at patient's floor/unit and/or counseling patient: Coding Level of Care Code 23680 Subseq Hosp Care Lvl 3 Diagnoses Hyperkalemia E87.5 Diverticulitis K57.92 Acute on chronic renal insufficiency N28.9; N18.9 Hidradenitis suppurativa L73.2 Obstructive sleep apnea G47.33 Anxiety and depression F41.9; F32.A Asthma J45.20 Asthma severity: mild Asthma persistence: intermittent Asthma complication type: uncomplicated Hypertension I10 Hypertension type: unspecified Hyperlipidemia E78.5 GERD (gastroesophageal reflux disease) K21.9 Restless legs syndrome G25.81 Hypothyroidism E03.9 Diabetes mellitus type 2 with complications E11.8 Bemlgfp-Vuwrknrbc-Tiidg syndrome Q87.2 (1) Asthma Asthma severity: mild Asthma persistence: intermittent Asthma complication type: uncomplicated Qualified Code(s): J45.20 - Mild intermittent asthma, uncomplicated (2) Hypertension Hypertension type: unspecified Qualified Code(s): I10 - Essential (primary) hypertension
[2022-04-18 13:53] LABS: BUN Creatinine Ratio 13.7 (10-20); Calcium 11.6 mg/dl (8.5-10.1); Creatinine Clr Calc Pharmacy 57.8 ml/min; Est GFR (African American) 50.1 ml/min; Est GFR (Non-African American) 43.2 ml/min; Potassium 5.6 mmol/L (3.5-5.1)
[2022-04-18] MEDS ORDERED: FUROSEMIDE INJ 20 MG/2 ML VIAL IV ONE (18:02)
[2022-04-18] MEDS: SODIUM CHLORIDE 0.9% 500 ML IV SCH (18:30)
[2022-04-18 18:43] LABS: Calcium 11.3 mg/dl (8.5-10.1); Creatinine Clr Calc Pharmacy 54.9 ml/min; Est GFR (Non-African American) 40.6 ml/min
[2022-04-18] MEDS: CLOPIDOGREL BISULFATE 75 MG TAB PO SCH (20:15)
[2022-04-18] MEDS: ATORVASTATIN 40 MG TAB PO SCH (20:15)
[2022-04-18] MEDS: rOPINIRole HCL 1 MG TABLET PO SCH (20:17)
[2022-04-18] MEDS: AMITRIPTYLINE HCL 25 MG TAB PO SCH (20:17)
[2022-04-18] MEDS: QUEtiapine FUMARATE 200 MG TAB PO SCH (20:17)
[2022-04-18] MEDS: BACLOFEN 20 MG TAB PO SCH (20:17)
[2022-04-18] MEDS: cefTRIAXone SODIUM 2,000 MG in DEXTROSE 5% 50 ML IV SCH (20:18)
[2022-04-18] MEDS ORDERED: CYCLOBENZAPRINE HCL 5 MG TAB PO STA (22:12)
[2022-04-19] MEDS: SODIUM CHLORIDE 0.9% 500 ML IV SCH ×2 (00:40→06:33)
[2022-04-19] MEDS: metroNIDAZOLE 500 MG/100 ML BAG IV SCH ×3 (05:34→21:27)
[2022-04-19] MEDS: LEVOTHYROXINE SODIUM 200 MCG TABLET PO SCH (05:34)
[2022-04-19 07:18] LABS: Basophils # (auto) 0.05 K/uL (0-0.2); Basophils % (auto) 0.7 %; Eosinophils # (auto) 0.27 K/uL (0-0.50); Hematocrit (blood only) 34.7 % (34.1-44.9); Hemoglobin 11.1 g/dl (12.0-16.0); Immature Granulocytes # (auto) 0.01 K/uL (0.00-0.02); Immature Granulocytes % (auto) 0.1 %; Lymphocytes # (auto) 1.92 K/uL (1.2-3.4); Lymphocytes % (auto) 28.7 %; Mean Corpuscular Hemoglobin 28.2 pg (25.0-34.0); Mean Corpuscular Volume 88.3 fL (80.0-100.0); Mean Platelet Volume 9.8 fL (9.4-12.3); Monocytes # (auto) 0.62 K/uL (0.24-0.82); Monocytes % (auto) 9.3 %; Neutrophils # (auto) 3.83 K/uL (1.4-6.5); Neutrophils % (auto) 57.2 %; Platelet Count 215 K/uL (130-400); RDW Coefficient of Variation 14.8 % (11.5-14.5); RDW Standard Deviation 47.4 fL (36.4-46.3); Red Blood Count 3.93 M/uL (3.93-5.22)
[2022-04-19 08:02] LABS: BUN Creatinine Ratio 17.4 (10-20); Calcium 10.1 mg/dl (8.5-10.1); Creatinine Clr Calc Pharmacy 68.8 ml/min; Est GFR (African American) 62.6 ml/min; Potassium 4.8 mmol/L (3.5-5.1)
[2022-04-19] MEDS: PREGABALIN 100 MG CAP PO SCH ×2 (08:04→21:04)
[2022-04-19] MEDS: FAMOTIDINE 40 MG TABLET PO SCH (08:05)
[2022-04-19] MEDS: DOCUSATE SODIUM 100 MG CAP PO SCH (08:05)
[2022-04-19] MEDS: METOPROLOL TARTRATE 25 MG TAB PO SCH ×2 (08:05→21:27)
[2022-04-19] MEDS: PRAZOSIN HCL 1 MG CAP PO SCH (08:05)
[2022-04-19] MEDS: clonazePAM 0.5 MG TAB PO SCH ×2 (08:05→21:04)
[2022-04-19] MEDS: FLUTICASONE/VILANTEROL 200/25MCG 14 PUFFS/INHALER INH SCH (08:06)
[2022-04-19] MEDS: LANTUS PER UNIT CHARGE SQ SCH ×2 (08:07→21:06)
[2022-04-19] MEDS: INSULIN ASPART PER UNIT SC SCH ×4 (08:11→21:07)
[2022-04-19] MEDS: QUEtiapine FUMARATE 25 MG TABLET PO SCH ×2 (08:12→14:46)
[2022-04-19] MEDS ORDERED: LANTUS PER UNIT CHARGE SQ ONE (08:45)
[2022-04-19] MEDS ORDERED: LANTUS PER UNIT CHARGE SQ SCH (09:00)
--- NOTE | 2022-04-19 11:46 | Hospitalist Progress Note ---
Date of Service April 19, 2022 Assessment & Plan (1) Hyperkalemia: Plan: 61yo female presenting with muscle pain and cramping. Found to be hyperkalemic with initial K of 7.3, confirmed on repeat to be 6.7. No EKG changes. Most likely secondary to medication effects - patient recently placed on Bactrim for treatment of hidradenitis suppurativa - Bactrim can interfere with renal excretion of K. Also had her Spironolactone dose increased from 100mg daily to bid Patient is on NSAIDS as well as ARB as well which can be contributing to hyperkalemia. Also with mild increase in Cr from baseline. Patient has been treated medically with Ca gluconate, insulin, IVF as well as Patiromer on admission K+ today down to 4.8, OLENA resolving with garage door hanger down to 1.09 With hyperglycemia--> receiving insulin which will also help drive down potassium Continue holding aldactone, losartan She did receive 2 doses of Patiromer but has not had a bowel movement yet Discontinue normal saline now Muscle cramps improving, no events on tele -continue to trend BMP in the morning -give another dose of patiromer this AM -continue to hold Spironolactone, Bactrim as well as Losartan and Flurbiprofen--> would only restart spironolactone cautiously--> her K+ and garage door hanger were elevated on labs in 02/2022 when on only 100mg daily-would suggest starting with spironolactone 50 mg daily and carefully watching BMP with any escalation in dose -can dc IVF -Continue low K diet -continue insulin for DM which will also drive K+ down (2) Shoulder pain, bilateral: Plan: With bilateral shoulder pain since having to hold her arms over her head for CT scan on admission-suspect some subdeltoid bursitis given direct tenderness to palpation over that region But now with right shoulder with significant edema Ordered CT of humerus which shows significant fluid and gas infiltration consistent with likely IV site infiltrated in that region as it was in the right AC fossa actively infusing at the time of my examination IV was removed from that site -Consulted orthopedics and discussed case over the phone with Dr. Vaughn -There is no evidence of compartment syndrome -Will ask nurse to elevate arm above heart, ice packs to both shoulders, added tramadol as needed for pain in addition to Tylenol -No evidence at all of necrotizing fasciitis as radiologist suggested the appearance is similar to-she has no fevers, no erythema, no signs of infection at all -Monitor for signs of infection (3) Diverticulitis: Plan: Incidental finding of acute uncomplicated diverticulitis on imaging. Patient is non-toxic in appearance. No abdominal pain or tenderness on exam. She is on Humira injections for her history of hidradenitis suppurativa therefore will treat with antibiotics -Continue Ceftriaxone and Flagyl -Patient with multiple drug allergies to antibiotics -makes treatment somewhat challenging. She did receive a dose of Ceftriaxone and Flagyl in ER and was able to tolerate -RECOMMEND F/U WITH MANAGEMENT NURSE RN AFTER DISCHARGE FOR ALLERGY TESTING-discussed with patient -HOLD HUmira until treatment completed -ok to continue regular diet I suppose as asymptomatic -Because of her allergies and would want to avoid Bactrim due to recent hyperkalemia and acute kidney injury as above-would suggest discharge to home on cefdinir and metronidazole as she has been tolerating ceftriaxone (4) Acute on chronic renal insufficiency: Plan: garage door hanger 1.8 on arrival, now down to 1.0 with IVFs and holding meds as above follow BMP -would AVOID all NSAIDs in future -Can likely restart losartan on discharge (5) Hidradenitis suppurativa: Plan: Patient with severe stage III hidradenitis involving the right groin, labia, buttock and perineum. She follows with Dermatology - is on Humira was well as Bactrim and Spironolactone -Discontinue Spironolactone and bactrim for now given hyperkalemia -received 10 days of Bactrim prior to admission, now on ceftriaxone and flagyl for diverticulitis which will provide some coverage -consider topical clindamycin -as above, would NOT use high dose spironolactone -Continue followup with Dermatology (6) Obstructive sleep apnea: Plan: Chronic -Continue nocturnal CPAP with O2 4L (7) Anxiety and depression: Plan: Chronic -Continue Amitryptyline qHS -Continue Clonazepam 0.5mg po BID -Continue Prazosin -Continue Seroquel -continue Trintellix-must be brought in from home (8) Asthma: Plan: Chronic. Patient denies cough or SOB at this time. No wheezing on exam -Continue Albuterol as needed -Continue Fluticasone/Vilanterol (9) Hypertension: Plan: Chronic. Blood pressure controlled here -Continue Metoprolol 12.5mg po BID -Holding Spironolactone and Losartan for now -Continue to monitor BP (10) Hyperlipidemia: Plan: Chronic -Continue Atorvastatin qHS (11) GERD (gastroesophageal reflux disease): Plan: Chronic. Patient reports increased GI symptoms lately -Continue Pepcid - change to 40mg daily for renal adjustment (12) Restless legs syndrome: Plan: -Continue Baclofen qHS -Continue Lyrica 100mg po BID -Continue Ropinirole - recently increased due to motor restleness impacting sleep (13) Hypothyroidism: Plan: Chronic. 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: Plan: causes port wine stains and bony hypertrophy of limbs as well as multiple microscopic fast flow AV shunts--> can lead to ulcerations of skin and high output cardiac failure (16) Hypercalcemia: Plan: Calcium was high after admission but she did receive IV calcium gluconate for hyperkalemia on admission Intact PTH is appropriately low Vitamin D is acceptable at 29 Repeat calcium today is now back within normal limits Suspect this was due to supplemental IV calcium Follow chemistry in the morning Plan Dispo-continued stay, needs PT/OT evaluations given that she has difficulty with ambulation to begin with and now with bilateral shoulder pain Admission and Anticipated Discharge Date Admission Date: April 17, 2022 Subjective Pt having a lot of pain in her shoulders R>>L today. Both shoulders have been hurting since she had to raise her arms above her head for the CT of her A/P on admission, but then today has noticed the right shoulder hurting a lot more with any movement. No chest pain or shortness of breath. Otherwise only very mild cramps in the legs. No other complaints. She still has not moved her bowels. She is eating and drinking. Making urine. Review of Systems Review of Systems: All systems reviewed & are unremarkable except as noted in HPI & below Physical Exam Constitutional: WD/WN, vitals as above + morbidly obese Eyes: + anicteric sclerae Neck: trachea midline, no thyromegaly Respiratory: normal respiratory effort, lungs clear to auscultation Cardiovascular: RRR, no murmur, no edema Chest (Breasts): Chest: normal inspection of chest Gastrointestinal (Abdomen): normal bowel sounds, soft, nontender, no hepatosplenomegaly Musculoskeletal: Extremities: no cyanosis and no clubbing Right humerus region with significant swelling and tenderness, no erythema. Her peripheral IV is infusing normal saline at 80 mL/h in the right AC fossa Left shoulder with positive tenderness palpation over the subdeltoid bursa, otherwise no swelling or erythema Both shoulders painful with abduction 2+ radial and ulnar pulses on the right, right forearm is normal, good cap refill in the right hand and fingers No decreased sensation to touch Skin: no rashes, warm and dry + lesion (thickened skin with mild erythema labia bilat,dilated pores,no drainage) Neurologic: moves all extremities and awake; no focal motor deficits Psychiatric: A+Ox3, euthymic affect Results & Data Results & Data ([facility]) Vital Signs (Past 12 Hours) Vital Signs Temp Pulse Pulse Resp BP Pulse Ox O2 Del Method 04/19/22 08:14 36.7 C 80 18 138/84 99 CPAP 04/19/22 04:07 36.5 C 82 20 119/66 98 CPAP 04/19/22 03:23 89 20 95 O2 Flow Rate 04/19/22 08:14 04/19/22 04:07 4 04/19/22 03:23 Laboratory Results 04/19/22 04/19/22 04/19/22 Range/Units 16:52 11:35 07:50 WBC (4.8-10.8) K/ul RBC (3.93-5.22) M/uL Hgb (12.0-16.0) g/dl Hct (34.1-44.9) % MCV (80.0-100.0) fL MCH (25.0-34.0) pg MCHC (32.0-36.0) g/dL RDW Std Deviation (36.4-46.3) fL RDW Coeff of Aleah (11.5-14.5) % Plt Count (130-400) K/uL MPV (9.4-12.3) fL Immature Gran % (Auto) % Neut % (Auto) % Lymph % (Auto) % [place] % (Auto) % Eos % (Auto) % Baso % (Auto) % Neut # (Auto) (1.4-6.5) K/uL Lymph # (Auto) (1.2-3.4) K/uL [place] # (Auto) (0.24-0.82) K/uL Eos # (Auto) (0-0.50) K/uL Baso # (Auto) (0-0.2) K/uL Immature Gran # (Auto) (0.00-0.02) K/uL Sodium (136-145) mmol/L Potassium (3.5-5.1) mmol/L Chloride (98-107) mmol/L Carbon Dioxide (21-32) mmol/L Anion Gap (3-11) BUN (6-23) mg/dl Creatinine (0.6-1.2) mg/dl Est Cr Clr Drug Dosing ml/min Est GFR ( Amer) ml/min Est GFR (Non-Af Amer) ml/min BUN/Creatinine Ratio (10-20) Glucose (70-99(Fasting)) mg/dl POC Glucose 213 H 259 H 208 H (70-99) mg/dl Calcium (8.5-10.1) mg/dl 25-OH Vitamin D Total (30-100) ng/ml 04/19/22 04/19/22 04/18/22 Range/Units 06:41 06:41 20:24 WBC 6.70 (4.8-10.8) K/ul RBC 3.93 (3.93-5.22) M/uL Hgb 11.1 L (12.0-16.0) g/dl Hct 34.7 (34.1-44.9) % MCV 88.3 (80.0-100.0) fL MCH 28.2 (25.0-34.0) pg MCHC 32.0 (32.0-36.0) g/dL RDW Std Deviation 47.4 H (36.4-46.3) fL RDW Coeff of Aleah 14.8 H (11.5-14.5) % Plt Count 215 (130-400) K/uL MPV 9.8 (9.4-12.3) fL Immature Gran % (Auto) 0.1 % Neut % (Auto) 57.2 % Lymph % (Auto) 28.7 % [place] % (Auto) 9.3 % Eos % (Auto) 4.0 % Baso % (Auto) 0.7 % Neut # (Auto) 3.83 (1.4-6.5) K/uL Lymph # (Auto) 1.92 (1.2-3.4) K/uL [place] # (Auto) 0.62 (0.24-0.82) K/uL Eos # (Auto) 0.27 (0-0.50) K/uL Baso # (Auto) 0.05 (0-0.2) K/uL Immature Gran # (Auto) 0.01 (0.00-0.02) K/uL Sodium 134 L (136-145) mmol/L Potassium 4.8 (3.5-5.1) mmol/L Chloride 103 (98-107) mmol/L Carbon Dioxide 25 (21-32) mmol/L Anion Gap 6 (3-11) BUN 19 (6-23) mg/dl Creatinine 1.09 (0.6-1.2) mg/dl Est Cr Clr Drug Dosing 68.8 ml/min Est GFR ( Amer) 62.6 ml/min Est GFR (Non-Af Amer) 54.0 ml/min BUN/Creatinine Ratio 17.4 (10-20) Glucose 214 H (70-99(Fasting)) mg/dl POC Glucose 180 H (70-99) mg/dl Calcium 10.1 (8.5-10.1) mg/dl 25-OH Vitamin D Total (30-100) ng/ml 04/18/22 Range/Units 18:08 WBC (4.8-10.8) K/ul RBC (3.93-5.22) M/uL Hgb (12.0-16.0) g/dl Hct (34.1-44.9) % MCV (80.0-100.0) fL MCH (25.0-34.0) pg MCHC (32.0-36.0) g/dL RDW Std Deviation (36.4-46.3) fL RDW Coeff of Aleah (11.5-14.5) % Plt Count (130-400) K/uL MPV (9.4-12.3) fL Immature Gran % (Auto) % Neut % (Auto) % Lymph % (Auto) % [place] % (Auto) % Eos % (Auto) % Baso % (Auto) % Neut # (Auto) (1.4-6.5) K/uL Lymph # (Auto) (1.2-3.4) K/uL [place] # (Auto) (0.24-0.82) K/uL Eos # (Auto) (0-0.50) K/uL Baso # (Auto) (0-0.2) K/uL Immature Gran # (Auto) (0.00-0.02) K/uL Sodium (136-145) mmol/L Potassium (3.5-5.1) mmol/L Chloride (98-107) mmol/L Carbon Dioxide (21-32) mmol/L Anion Gap (3-11) BUN (6-23) mg/dl Creatinine (0.6-1.2) mg/dl Est Cr Clr Drug Dosing ml/min Est GFR ( Amer) ml/min Est GFR (Non-Af Amer) ml/min BUN/Creatinine Ratio (10-20) Glucose (70-99(Fasting)) mg/dl POC Glucose (70-99) mg/dl Calcium (8.5-10.1) mg/dl 25-OH Vitamin D Total 29.3 L (30-100) ng/ml PG Care Time/CCT Total # of Minutes Spent Total Time Spent with Patient: Total time spent is greater than 50% in coordination of care (as documented) at patient's floor/unit and/or counseling patient: Coding Level of Care Code 11159 Subseq Hosp Care Lvl 3 Diagnoses Hyperkalemia E87.5 Shoulder pain, bilateral M25.511; M25.512 Diverticulitis K57.92 Acute on chronic renal insufficiency N28.9; N18.9 Hidradenitis suppurativa L73.2 Obstructive sleep apnea G47.33 Anxiety and depression F41.9; F32.A Asthma J45.20 Asthma complication type: uncomplicated Asthma persistence: intermittent Asthma severity: mild Hypertension I10 Hypertension type: unspecified Hyperlipidemia E78.5 GERD (gastroesophageal reflux disease) K21.9 Restless legs syndrome G25.81 Hypothyroidism E03.9 Diabetes mellitus type 2 with complications E11.8 Hyngfda-Gbserivcg-Llnmh syndrome Q87.2 Hypercalcemia E83.52 (1) Hypertension Hypertension type: unspecified Qualified Code(s): I10 - Essential (primary) hypertension (2) Asthma Asthma complication type: uncomplicated Asthma persistence: intermittent Asthma severity: mild Qualified Code(s): J45.20 - Mild intermittent asthma, uncomplicated
[2022-04-19] MEDS: traMADol HCL 50 MG TABLET PO PRN (12:21)
--- NOTE | 2022-04-19 13:34 | CT Scan Report ---
CT SCAN OF THE RIGHT HUMERUS WITHOUT IV CONTRAST CLINICAL HISTORY: Right arm pain and swelling. Infiltration of an IV line. COMPARISON STUDY: Radiographs of the right shoulder dated 08/04/2013. TECHNIQUE: CT scan of the right humerus is performed from the shoulder to the elbow. Images are revie wed in the axial, sagittal, and coronal planes. IV contrast was not administered for this examination . A dose lowering technique was utilized adhering to the principles of ALARA. Note that interpretatio n is suboptimal without plain film correlate. CT DOSE: 1449.84 mGy.cm FINDINGS: The skeletal structures are osteopenic. There is no evidence of right humeral fracture. No bony erosion or periostitis is identified. The elbow and shoulder joints are grossly maintained notin g degenerative change. No lytic or blastic lesion is seen. There is generalized atrophy of the region al musculature. There is superficial and deep soft tissue inflammation/edema/fluid identified through out the right upper extremity, which surrounds the upper extremity musculature. There is also deep so ft tissue gas along the musculature in the right upper extremity. No organized/drainable fluid collec tion is identified. Fluid tracks up the right axilla. There is no right axillary lymphadenopathy. Col lateral vessels are noted in the right chest wall. IMPRESSION: 1. No acute osseous abnormality is seen involving the right humerus. 2. Extensive superficial and deep soft tissue inflammation/edema/fluid is seen throughout the right u pper extremity with deep soft tissue gas. This is nonspecific and could related to the reported histo ry of a recently infiltrated IV line. If there is clinical concern for necrotizing infection/fasciiti s then surgical assessment/biopsy should be obtained. 3. No organized fluid collection is identified. Findings were communicated to Dr. Beltran at the time of interpretation. ACT 112: Negative or not required by law. Electronically signed by: Gaurav Fisher M.D. 04/19/2022 1:32 PM
[2022-04-19] MEDS: cefTRIAXone SODIUM 2,000 MG in DEXTROSE 5% 50 ML IV SCH (21:03)
[2022-04-19] MEDS: rOPINIRole HCL 1 MG TABLET PO SCH (21:04)
[2022-04-19] MEDS: QUEtiapine FUMARATE 200 MG TAB PO SCH (21:04)
[2022-04-19] MEDS: AMITRIPTYLINE HCL 25 MG TAB PO SCH (21:05)
[2022-04-19] MEDS: CLOPIDOGREL BISULFATE 75 MG TAB PO SCH (21:05)
[2022-04-19] MEDS: ATORVASTATIN 40 MG TAB PO SCH (21:06)
[2022-04-19] MEDS: BACLOFEN 20 MG TAB PO SCH (21:06)
[2022-04-20] MEDS: traMADol HCL 50 MG TABLET PO PRN ×2 (03:03→19:28)
[2022-04-20] MEDS: LEVOTHYROXINE SODIUM 200 MCG TABLET PO SCH (05:36)
[2022-04-20] MEDS: metroNIDAZOLE 500 MG/100 ML BAG IV SCH ×3 (05:36→21:34)
[2022-04-20 07:03] LABS: Basophils # (auto) 0.06 K/uL (0-0.2); Eosinophils # (auto) 0.23 K/uL (0-0.50); Eosinophils % (auto) 3.7 %; Hematocrit (blood only) 33.3 % (34.1-44.9); Hemoglobin 10.6 g/dl (12.0-16.0); Immature Granulocytes # (auto) 0.02 K/uL (0.00-0.02); Immature Granulocytes % (auto) 0.3 %; Lymphocytes # (auto) 1.76 K/uL (1.2-3.4); Lymphocytes % (auto) 28.3 %; Mean Corpuscular Hemoglobin 27.9 pg (25.0-34.0); Mean Corpuscular Hgb Conc 31.8 g/dL (32.0-36.0); Mean Corpuscular Volume 87.6 fL (80.0-100.0); Mean Platelet Volume 9.6 fL (9.4-12.3); Monocytes # (auto) 0.54 K/uL (0.24-0.82); Monocytes % (auto) 8.7 %; Platelet Count 203 K/uL (130-400); RDW Coefficient of Variation 14.6 % (11.5-14.5); RDW Standard Deviation 46.9 fL (36.4-46.3); White Blood Count 6.21 K/ul (4.8-10.8)
[2022-04-20 07:25] LABS: Albumin Globulin Ratio 1.1 (0.9-2); Albumin Level 3.5 gm/dl (3.4-5.0); BUN Creatinine Ratio 19.1 (10-20); Bilirubin,Total 0.3 mg/dl (0.2-1.0); Calcium 8.8 mg/dl (8.5-10.1); Creatinine Clr Calc Pharmacy 68.4 ml/min; Est GFR (African American) 61.9 ml/min; Est GFR (Non-African American) 53.4 ml/min; Globulin 3.3 gm/dl (2.5-4.0); Potassium 4.1 mmol/L (3.5-5.1); Total Protein 6.8 gm/dl (6.0-8.3)
[2022-04-20] MEDS: FLUTICASONE/VILANTEROL 200/25MCG 14 PUFFS/INHALER INH SCH (08:31)
[2022-04-20] MEDS: METOPROLOL TARTRATE 25 MG TAB PO SCH ×2 (08:31→21:03)
[2022-04-20] MEDS: FAMOTIDINE 40 MG TABLET PO SCH (08:32)
[2022-04-20] MEDS: QUEtiapine FUMARATE 25 MG TABLET PO SCH ×2 (08:32→14:31)
[2022-04-20] MEDS: DOCUSATE SODIUM 100 MG CAP PO SCH (08:32)
[2022-04-20] MEDS: PRAZOSIN HCL 1 MG CAP PO SCH (08:32)
[2022-04-20] MEDS: INSULIN ASPART PER UNIT SC SCH ×4 (08:36→21:05)
[2022-04-20] MEDS: LANTUS PER UNIT CHARGE SQ SCH ×2 (08:37→21:05)
[2022-04-20] MEDS: clonazePAM 0.5 MG TAB PO SCH ×2 (08:41→21:02)
[2022-04-20] MEDS: PREGABALIN 100 MG CAP PO SCH ×2 (08:41→21:02)
[2022-04-20] MEDS: SPIRONOLACTONE 25 MG TAB PO SCH (10:05)
--- NOTE | 2022-04-20 13:09 | Hospitalist Progress Note ---
Date of Service April 20, 2022 Assessment & Plan (1) Hyperkalemia: Plan: Likely med induced with combination of Bactrim, spironolactone, nonsteroidal- improved, resume spironolactone at lower dose, see prior note (2) Shoulder pain, bilateral: Plan: Right upper extremity CT scan noted, agree nothing to suggest clinically necrotizing fasciitis, supportive care and symptomatic treatment (3) Diverticulitis: Plan: Incidental finding of acute uncomplicated diverticulitis on imaging. Patient is non-toxic in appearance. No abdominal pain or tenderness on exam. She is on Humira injections for her history of hidradenitis suppurativa therefore will treat with antibiotics -Continue Ceftriaxone and Flagyl -Patient with multiple drug allergies to antibiotics -makes treatment somewhat challenging. She did receive a dose of Ceftriaxone and Flagyl in ER and was able to tolerate -RECOMMEND F/U WITH METALLOGRAPHER AFTER DISCHARGE FOR ALLERGY TESTING-discussed with patient -HOLD HUmira until treatment completed -ok to continue regular diet I suppose as asymptomatic -Because of her allergies and would want to avoid Bactrim due to recent hyperkalemia and acute kidney injury as above- will consider discharge to home on cefdinir and metronidazole as she has been tolerating ceftriaxone (4) Acute on chronic renal insufficiency: Plan: Improved, would not resume ARB on discharge, this is the least important (5) Hidradenitis suppurativa: Plan: Patient with severe stage III hidradenitis involving the right groin, labia, buttock and perineum. She follows with Dermatology - is on Humira was well as Bactrim and Spironolactone -received 10 days of Bactrim prior to admission, now on ceftriaxone and flagyl for diverticulitis which will provide some coverage -consider topical clindamycin -ARB on hold, resumed low-dose spironolactone -Continue followup with Dermatology and will try to discuss with them (6) Obstructive sleep apnea: Plan: Chronic -Continue nocturnal CPAP with O2 4L (7) Anxiety and depression: Plan: Chronic -Continue Amitryptyline qHS -Continue Clonazepam 0.5mg po BID -Continue Prazosin -Continue Seroquel -continue Trintellix-must be brought in from home (8) Asthma: Plan: Chronic. Patient denies cough or SOB at this time. No wheezing on exam -Continue Albuterol as needed -Continue Fluticasone/Vilanterol (9) Hypertension: Plan: Pressures acceptable, no other change other than above (10) Hyperlipidemia: Plan: Chronic -Continue Atorvastatin qHS (11) GERD (gastroesophageal reflux disease): Plan: Chronic. Patient reports increased GI symptoms lately -Continue Pepcid - change to 40mg daily for renal adjustment (12) Restless legs syndrome: Plan: -Continue Baclofen qHS -Continue Lyrica 100mg po BID -Continue Ropinirole - recently increased due to motor restleness impacting sleep (13) Hypothyroidism: Plan: Chronic. 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: Plan: causes port wine stains and bony hypertrophy of limbs as well as multiple microscopic fast flow AV shunts--> can lead to ulcerations of skin and high output cardiac failure (16) Hypercalcemia: Plan: With suppressed PTH, somewhat befuddling, improved, follow; vitamin D on the low side; follows endocrineno changes made (17) Anemia: Plan: Likely inflammatory in part, follow Plan Dispo-continued stay, needs PT/OT evaluations given that she has difficulty with ambulation to begin with and now with bilateral shoulder pain Admission and Anticipated Discharge Date Admission Date: April 17, 2022 Subjective Follow-up of original presentation with weakness, hyperkalemiano specific new complaints Physical Exam Physical Exam: Constitutional and general: No acute distress, looks biologic age Head and face: No puffiness, atraumatic Eyes: No scleral icterus, extraocular movements normal Neck: Supple, no JVD Musculoskeletal: No acute joint swelling, no bony abnormalities Skin/dermatologic/integument: No rash, no purpura Hematologic and lymphatic: pallor +, no petechia Gastrointestinal/abdomen: Nondistended, soft, nonacute Neurologic: Cranial nerves intact, nonfocal Psychiatry: Awake, alert, pleasant, communicative Cardiovascular: Heart rhythm regular, no rub, no murmur, no gallop Respiratory: Chest movements equal, no use of accessory muscles, no adventitious sounds Extremities: Mild swelling right upper extremity Hidradenitis changes groins Results & Data Results & Data ([facility]) Vital Signs (Past 12 Hours) Vital Signs Temp Pulse Pulse Pulse Resp BP Pulse Ox 04/20/22 10:55 36.8 C 76 18 130/60 91 04/20/22 08:04 36.8 C 78 16 120/60 92 04/20/22 07:16 80 04/20/22 02:57 36.6 C 79 20 119/74 96 04/20/22 02:49 102 H 23 97 O2 Del Method O2 Flow Rate 04/20/22 10:55 Room Air 04/20/22 08:04 Room Air 04/20/22 07:16 04/20/22 02:57 CPAP 04/20/22 02:49 4 Laboratory Results Laboratory Results - last 24 hr 04/19/22 04/19/22 04/20/22 16:52 20:10 06:45 WBC 6.21 RBC 3.80 L Hgb 10.6 L Hct 33.3 L MCV 87.6 MCH 27.9 MCHC 31.8 L RDW Std Deviation 46.9 H RDW Coeff of Aleah 14.6 H Plt Count 203 MPV 9.6 Immature Gran % (Auto) 0.3 Neut % (Auto) 58.0 Lymph % (Auto) 28.3 [place] % (Auto) 8.7 Eos % (Auto) 3.7 Baso % (Auto) 1.0 Neut # (Auto) 3.60 Lymph # (Auto) 1.76 [place] # (Auto) 0.54 Eos # (Auto) 0.23 Baso # (Auto) 0.06 Immature Gran # (Auto) 0.02 Sodium Potassium Chloride Carbon Dioxide Anion Gap BUN Creatinine Est Cr Clr Drug Dosing Est GFR ( Amer) Est GFR (Non-Af Amer) BUN/Creatinine Ratio Glucose POC Glucose 213 H 179 H Calcium Total Bilirubin AST ALT Alkaline Phosphatase Total Protein Albumin Globulin Albumin/Globulin Ratio 04/20/22 04/20/22 04/20/22 06:45 07:57 11:53 WBC RBC Hgb Hct MCV MCH MCHC RDW Std Deviation RDW Coeff of Aleah Plt Count MPV Immature Gran % (Auto) Neut % (Auto) Lymph % (Auto) Aurora % (Auto) Eos % (Auto) Baso % (Auto) Neut # (Auto) Lymph # (Auto) [place] # (Auto) Eos # (Auto) Baso # (Auto) Immature Gran # (Auto) Sodium 135 L Potassium 4.1 Chloride 104 Carbon Dioxide 25 Anion Gap 6 BUN 21 Creatinine 1.10 Est Cr Clr Drug Dosing 68.4 Est GFR ( Amer) 61.9 Est GFR (Non-Af Amer) 53.4 BUN/Creatinine Ratio 19.1 Glucose 181 H POC Glucose 183 H 189 H Calcium 8.8 Total Bilirubin 0.3 AST 9 L ALT 10 Alkaline Phosphatase 75 Total Protein 6.8 Albumin 3.5 Globulin 3.3 Albumin/Globulin Ratio 1.1 PG Care Time/CCT Total # of Minutes Spent Total Time Spent with Patient: Total time spent is greater than 50% in coordination of care (as documented) at patient's floor/unit and/or counseling patient: Coding Level of Care Code 11662 Subseq Hosp Care Lvl 2 Diagnoses Hyperkalemia E87.5 Shoulder pain, bilateral M25.511; M25.512 Diverticulitis K57.92 Acute on chronic renal insufficiency N28.9; N18.9 Hidradenitis suppurativa L73.2 Obstructive sleep apnea G47.33 Anxiety and depression F41.9; F32.A Asthma J45.20 Asthma severity: mild Asthma persistence: intermittent Asthma complication type: uncomplicated Hypertension I10 Hypertension type: unspecified Hyperlipidemia E78.5 GERD (gastroesophageal reflux disease) K21.9 Restless legs syndrome G25.81 Hypothyroidism E03.9 Diabetes mellitus type 2 with complications E11.8 Fpkyuxh-Uwxelrkqd-Vepyp syndrome Q87.2 Hypercalcemia E83.52 Anemia D64.9 (1) Asthma Asthma severity: mild Asthma persistence: intermittent Asthma complication type: uncomplicated Qualified Code(s): J45.20 - Mild intermittent asthma, uncomplicated (2) Hypertension Hypertension type: unspecified Qualified Code(s): I10 - Essential (primary) hypertension
[2022-04-20] MEDS: PANTOprazole 40 MG TAB PO SCH (14:30)
[2022-04-20] MEDS: ENOXAPARIN INJ 40 MG/0.4 ML SYR SQ SCH (15:41)
--- NOTE | 2022-04-20 17:43 | Orthopedic Consultation ---
Date of Consultation April 20, 2022 Assessment & Plan (1) Shoulder pain, bilateral: No signs of infection or necrotizing fasciitis. Patient has some degenerative changes of her shoulders which could be aggravated by overhead activity. Any chronic pain can be followed up and treated as an outpatient. History of Present Illness Reason for Consultation: CT scan finding Attending Physician: Skip Gunter MD History of Present Illness Patient with some arm pain after IV infiltration and having to hold arms overhead after CAT scan Allergies Allergy/AdvReac Type Severity Reaction Status Date / Time adhesive Allergy Intermediate "eats my Verified 04/17/22 19:59 skin" Aminoglycosides Allergy Intermediate Hives Verified 04/17/22 19:59 azithromycin Allergy Intermediate Hives Verified 04/17/22 19:59 bacitracin Allergy Intermediate RASH Verified 04/17/22 19:59 Cephalosporins Allergy Intermediate Hives Verified 04/17/22 19:59 ciprofloxacin Allergy Intermediate EYE Verified 04/17/22 19:59 SWELLING, "burned my eyelids" erythromycin base Allergy Intermediate HIVES Verified 04/17/22 19:59 minocycline Allergy Intermediate HIVES Verified 04/17/22 19:59 mupirocin Allergy Intermediate RASH Verified 04/17/22 19:59 neomycin Allergy Intermediate RASH Verified 04/17/22 19:59 Penicillins Allergy Intermediate HIVES Verified 04/17/22 19:59 polymyxin B Allergy Intermediate RASH Verified 04/17/22 19:59 Quinolones Allergy Intermediate Hives Verified 04/17/22 19:59 tetracycline Allergy Intermediate HIVES Verified 04/17/22 19:59 hydroxyzine Allergy Unknown PT DOESN'T Verified 04/17/22 19:58 REMEMBER REACTION topiramate AdvReac Severe SOB,DIZZINE Verified 04/17/22 19:59 SS aspirin AdvReac Intermediate NOSEBLEEDS- Verified 04/17/22 19:59 CAN TAKE IBUPROFEN duloxetine AdvReac Intermediate slurred Verified 04/17/22 19:59 speech/memory loss/ "like I was drunk" Home Medications Medication Instructions Recorded Confirmed Type dexlansoprazole 60 mg 60 mg PO QAM #90 caps 01/24/21 04/17/22 Rx capsule,biphase delayed release (Dexilant) docusate sodium 100 mg tablet 100 mg PO DAILY 02/28/21 04/17/22 History (Stool Softener) Incentive Spirometer #1 ea 03/14/21 04/15/22 Rx blood-glucose meter,continuous 06/17/21 04/15/22 History (Dexcom G6 [employer] Head) blood-glucose sensor (Dexcom G6 06/17/21 04/15/22 History Sensor) blood-glucose transmitter (Dexcom 06/17/21 04/15/22 History G6 Transmitter) albuterol sulfate 90 mcg/actuation 1 - 2 puff inhalation Q4H PRN 06/24/21 04/17/22 Rx aerosol inhaler (Ventolin HFA) shortness of breath #8 grams fluticasone propionate 115 2 puff inhalation BID 07/04/21 04/17/22 History mcg-salmeterol 21 mcg/actuation HFA inhaler (Advair HFA) metoprolol tartrate 25 mg tablet 12.5 mg PO BID #30 tabs 08/22/21 04/17/22 Rx clopidogrel 75 mg tablet 75 mg PO HS #30 tabs 09/09/21 04/17/22 Rx levothyroxine 200 mcg tablet 200 mcg PO QAM 09/29/21 04/17/22 History losartan 50 mg tablet 50 mg PO DAILY 09/29/21 04/17/22 History prazosin 5 mg capsule 5 mg PO DAILY 09/29/21 04/17/22 History vortioxetine 20 mg tablet 20 mg PO BID 09/29/21 04/17/22 History (Trintellix) clonazepam 0.5 mg tablet 0.5 mg PO BID 10/22/21 04/17/22 History insulin aspart U-100 100 unit/mL 7 unit subcut TID 10/22/21 04/17/22 History (3 mL) subcutaneous pen (Novolog Flexpen U-100 Insulin aspart) insulin glargine 100 unit/mL (3 18 unit subcut BID 10/22/21 04/17/22 History mL) subcutaneous pen (Lantus Solostar U-100 Insulin) quetiapine 50 mg tablet (Seroquel) 50 mg PO BID 10/22/21 04/17/22 History atorvastatin 80 mg tablet 80 mg PO HS #90 tabs 11/04/21 04/17/22 Rx quetiapine 400 mg tablet 400 mg PO HS #30 tabs 12/18/21 04/17/22 Rx amitriptyline 25 mg tablet 25 mg PO HS 01/06/22 04/17/22 History dulaglutide 3 mg/0.5 mL 3 mg (0.5 mL) subcut WK 90 days 01/07/22 04/17/22 Rx subcutaneous pen injector #45 mL baclofen 20 mg tablet 20 mg PO HS jaw spasms/neuralgia 01/21/22 04/17/22 History adalimumab 40 mg/0.4 mL See Rx Instructions subcut 01/22/22 04/17/22 Rx subcutaneous pen kit .COMPLEX #4 ea flurbiprofen 100 mg tablet 50 mg PO BID 02/09/22 04/17/22 History metformin 500 mg tablet,extended 1,000 mg PO BID 02/09/22 04/17/22 History release 24 hr famotidine 40 mg tablet 40 mg PO BID #60 tabs 03/06/22 04/17/22 Rx pregabalin 100 mg capsule 100 mg PO BID #60 caps 04/01/22 04/17/22 Rx ropinirole 0.5 mg tablet 1.5 mg PO HS 04/07/22 04/17/22 History spironolactone 100 mg tablet 100 mg PO BID 30 days #60 tabs 04/07/22 04/17/22 Rx sulfamethoxazole 800 1 tab PO BID 14 days #28 tabs 04/07/22 04/17/22 Rx mg-trimethoprim 160 mg tablet (Bactrim DS) pen needle, diabetic 32 gauge x #500 ea 04/17/22 Rx 1/4" (UltiCare Pen Needle) Patient History Medical History (Updated 04/20/22 @ 13:05 by Skip Gunter MD) Rdesq-ls-zblbldd kidney injury Change in mental status Deep vein thrombosis reason for plavix; 25 years ago RLE Degenerative disc disease Dehydration Delayed gastric emptying Diarrhea Diverticulitis Enlarged heart per Pro--no mold closer helper Generalized anxiety disorder with panic attacks Generalized muscle weakness Hidradenitis suppurativa History of COVID-19 09/2020; body aches, fatigue, decreased appetite, loss of taste/smell, joint pain, BLLE tingling, cough, sob, brain fog; w lingering cough, sob, fatigue, brain fog Fbgmlzp-Qkhegdhyw-Prcti syndrome Left lumbar radiculopathy Morbid obesity with BMI of 45.0-49.9, adult Morbid obesity with BMI of 50.0-59.9, adult Nausea & vomiting Osteopenia Personal history of diabetic foot ulcer Psychiatric care MAJOR ANXIETY AND DEPRESSION OVER LAST YR, USES CRISIS CENTER NEEDED (LAST 3-4 MON AGO) , FOLLOWS THERAPIST DIRECTED Pulmonary nodule Restrictive lung disease Sleep apnea cpap with 7L of oxygen SOB (shortness of breath) on exertion FOLLOWING PULMONOLOGY - MOST RECENT VISIT LAST MONTH - NO DX AT CURRENT ? 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 Vitamin B12 deficiency Surgical History H/O ligation of vein RIGHT LEG History of bilateral cataract extraction History of colonoscopy with polypectomy History of esophagogastroduodenoscopy (EGD) History of tooth extraction History of umbilical hernia repair Status post trigger finger release x2---1 on each thumb Family History Aunt Breast cancer Uncle Family hx of colon cancer Colorectal cancer Mother Family history of diabetes mellitus Family history of reaction to anesthesia Stroke Diabetes Heart disease Hypertension Father Prostate cancer Cancer Grandfather (Maternal) Myocardial infarction Sister Family history of diabetes mellitus Family history of reaction to anesthesia Diabetes Hypertension Family/Other Family hx of colon cancer Brother Family history of reaction to anesthesia Diabetes Denies family history of Ovarian cancer Uterine cancer Social History Smoking Status: Never smoker Second Hand Exposure: No; Do You Dip or Chew Tobacco: No; Tobacco Cessation Education Requested by Patient: No Hx Alcohol Use: No Hx Substance Use: No Preferred Language: Sami Communication Ability: Effective Visual Impairment: No Limitations Hearing Ability: Normal Children'S Lunchroom Supervisor Required: No Beliefs That Will Affect Care: None marital status: Single Current Living Situation: Alone Current Living Situation Comment: [facility] current occupational status: disabled How many Children do You have: 0 Other Information That Helps Us Care for You: No Feels Safe at Home: Yes Safety Concerns: Feels Safe At This Time during the past year weight has: decreased > 10 lbs Seatbelt Use: always Sunscreen Use: Yes Assistive Devices: Cane, Glasses and Walker Assistive Devices Comment: Wears CPAP HS Review of Systems Review of Systems: No signs of infection Physical Exam Physical Exam: Old IV site antecubital appears to be benign. No erythema of arm. Size of arms is similar with obesity and no evidence of any compartment syndrome pain with passive range of motion or any pain with passive flexion extension and motor exam normal and sensory exam normal circulation normal. Little bit of tenderness along biceps tendon. Results & Data ([facility]) Vital Signs (Past 12 Hours) Vital Signs Temp Pulse Pulse Pulse Resp BP BP 04/20/22 16:52 81 04/20/22 15:20 37.0 C 80 14 95/61 L 04/20/22 12:53 04/20/22 10:55 36.8 C 76 18 130/60 04/20/22 08:04 36.8 C 78 16 120/60 04/20/22 07:16 80 Pulse Ox O2 Del Method 04/20/22 16:52 04/20/22 15:20 93 Room Air 04/20/22 12:53 Room Air 04/20/22 10:55 91 Room Air 04/20/22 08:04 92 Room Air 04/20/22 07:16 Laboratory Results White blood cell count normal with normal differential and afebrile Diagnostic Findings CT scan with some air noted medially where she had an IV and could be consistent with IV infiltration. Mild degenerative changes glenohumeral joint moderate degenerative changes AC joint with some heterotopic bone superior AC joint consistent with osteoarthritis
[2022-04-20] MEDS: cefTRIAXone SODIUM 2,000 MG in DEXTROSE 5% 50 ML IV SCH (21:01)
[2022-04-20] MEDS: CLOPIDOGREL BISULFATE 75 MG TAB PO SCH (21:02)
[2022-04-20] MEDS: AMITRIPTYLINE HCL 25 MG TAB PO SCH (21:02)
[2022-04-20] MEDS: rOPINIRole HCL 1 MG TABLET PO SCH (21:03)
[2022-04-20] MEDS: BACLOFEN 20 MG TAB PO SCH (21:04)
[2022-04-20] MEDS: QUEtiapine FUMARATE 200 MG TAB PO SCH (21:04)
[2022-04-20] MEDS: ATORVASTATIN 40 MG TAB PO SCH (21:04)
[2022-04-21] MEDS: ENOXAPARIN INJ 40 MG/0.4 ML SYR SQ SCH ×2 (02:44→16:05)
[2022-04-21] MEDS: traMADol HCL 50 MG TABLET PO PRN ×2 (02:52→13:43)
[2022-04-21] MEDS: metroNIDAZOLE 500 MG/100 ML BAG IV SCH (05:33)
[2022-04-21] MEDS: LEVOTHYROXINE SODIUM 200 MCG TABLET PO SCH (05:34)
[2022-04-21 07:00] LABS: Basophils # (auto) 0.04 K/uL (0-0.2); Basophils % (auto) 0.8 %; Eosinophils # (auto) 0.25 K/uL (0-0.50); Eosinophils % (auto) 4.7 %; Hematocrit (blood only) 32.4 % (34.1-44.9); Hemoglobin 10.3 g/dl (12.0-16.0); Immature Granulocytes # (auto) 0.01 K/uL (0.00-0.02); Immature Granulocytes % (auto) 0.2 %; Lymphocytes # (auto) 1.93 K/uL (1.2-3.4); Lymphocytes % (auto) 36.6 %; Mean Corpuscular Hgb Conc 31.8 g/dL (32.0-36.0); Mean Platelet Volume 9.6 fL (9.4-12.3); Monocytes # (auto) 0.41 K/uL (0.24-0.82); Monocytes % (auto) 7.8 %; Neutrophils # (auto) 2.63 K/uL (1.4-6.5); Neutrophils % (auto) 49.9 %; Platelet Count 193 K/uL (130-400); RDW Coefficient of Variation 14.6 % (11.5-14.5); RDW Standard Deviation 46.6 fL (36.4-46.3); Red Blood Count 3.68 M/uL (3.93-5.22); White Blood Count 5.27 K/ul (4.8-10.8)
[2022-04-21 07:23] LABS: Albumin Globulin Ratio 1.1 (0.9-2); Albumin Level 3.5 gm/dl (3.4-5.0); Bilirubin,Total 0.2 mg/dl (0.2-1.0); Calcium 8.7 mg/dl (8.5-10.1); Creatinine Clr Calc Pharmacy 73.4 ml/min; Est GFR (Non-African American) 57.8 ml/min; Globulin 3.2 gm/dl (2.5-4.0); Magnesium 1.5 mg/dl (1.7-2.4); Phosphorus 3.4 mg/dl (2.5-4.9); Potassium 3.9 mmol/L (3.5-5.1); Total Protein 6.7 gm/dl (6.0-8.3)
[2022-04-21] MEDS: FLUTICASONE/VILANTEROL 200/25MCG 14 PUFFS/INHALER INH SCH (08:12)
[2022-04-21] MEDS: INSULIN ASPART PER UNIT SC SCH ×4 (08:12→21:47)
[2022-04-21] MEDS: clonazePAM 0.5 MG TAB PO SCH ×2 (08:18→21:47)
[2022-04-21] MEDS: LANTUS PER UNIT CHARGE SQ SCH ×2 (08:18→21:47)
[2022-04-21] MEDS: QUEtiapine FUMARATE 25 MG TABLET PO SCH ×2 (08:18→13:39)
[2022-04-21] MEDS: PREGABALIN 100 MG CAP PO SCH ×2 (08:18→21:47)
[2022-04-21] MEDS: PANTOprazole 40 MG TAB PO SCH (08:19)
[2022-04-21] MEDS: SPIRONOLACTONE 25 MG TAB PO SCH (08:19)
[2022-04-21] MEDS: DOCUSATE SODIUM 100 MG CAP PO SCH ×3 (08:19→21:39)
[2022-04-21] MEDS: METOPROLOL TARTRATE 25 MG TAB PO SCH (08:19)
[2022-04-21] MEDS: PRAZOSIN HCL 1 MG CAP PO SCH ×2 (08:19→21:39)
[2022-04-21] MEDS ORDERED: MAGNESIUM CITRATE 296 ML/BTL PO ONE (08:34)
[2022-04-21] MEDS ORDERED: SPIRONOLACTONE 25 MG TAB PO ONE (08:45)
[2022-04-21] MEDS: CEFDINIR 300 MG CAP PO SCH ×2 (11:07→21:40)
[2022-04-21] MEDS: MAGNESIUM OXIDE 400 MG TAB PO SCH ×2 (11:08→21:37)
[2022-04-21] MEDS ORDERED: MAGNESIUM CITRATE 296 ML/BTL ONE (11:13)
--- NOTE | 2022-04-21 12:48 | Hospitalist Progress Note ---
Date of Service April 21, 2022 Assessment & Plan (1) Hyperkalemia: Plan: Likely med induced with combination of Bactrim, spironolactone, nonsteroidal- improved, resumed spironolactone at lower dose, see prior note; communicated with dermatologystop Bactrim (2) Shoulder pain, bilateral: Plan: Right upper extremity CT scan noted, agree nothing to suggest clinically necrotizing fasciitis, supportive care and symptomatic treatment (3) Diverticulitis: Plan: Doing well in this regard- switch to oral Omnicef plus metronidazole Outpatient colonoscopy; low fiber diet for now (4) Hidradenitis suppurativa: Plan: Patient with severe stage III hidradenitis involving the right groin, labia, buttock and perineum. She follows with Dermatology -consult requested but they will see as outpatient early; they stated continue Humira after acute illness (diverticulitis) resolves; okay to stop Bactrim; lower dose spironolactone resumption discussedin any case was not working according to them; they will consider second opinion and/or Remicade (5) Obstructive sleep apnea: Plan: Chronic -Continue nocturnal CPAP with O2 4L (6) Anxiety and depression: Plan: Chronic -Continue Amitryptyline qHS -Continue Clonazepam 0.5mg po BID -Continue Prazosin-at bedtime given low blood pressure -Continue Seroquel -continue Trintellix-must be brought in from home (7) Asthma: Plan: Chronic. Patient denies cough or SOB at this time. No wheezing on exam -Continue Albuterol as needed -Continue Fluticasone/Vilanterol (8) Hypertension: Plan: BP soft; stop metoprolol cautiously (if rebound tachycardia may need to address); prazosin made nightly (9) Hyperlipidemia: Plan: Chronic -Continue Atorvastatin qHS (10) GERD (gastroesophageal reflux disease): Plan: Chronic. Patient reports increased GI symptoms lately -Continue Pepcid - change to 40mg daily for renal adjustment (11) Restless legs syndrome: Plan: -Continue Baclofen qHS -Continue Lyrica 100mg po BID -Continue Ropinirole - recently increased due to motor restleness impacting sleep (12) Hypothyroidism: Plan: Chronic. 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 and bony hypertrophy of limbs as well as multiple microscopic fast flow AV shunts--> can lead to ulcerations of skin and high output cardiac failure (15) Hypercalcemia: Plan: With suppressed PTH, somewhat befuddling, improved, follow; vitamin D on the low side; follows endocrineno changes made (16) Anemia: Plan: Likely inflammatory in part, follow (17) Chronic constipation: Plan: Lot of fecal burden noted on CT scan; cautiously magnesium citrate ordered (18) Hypomagnesemia: Plan: Replace (19) Morbid obesity: Plan: Adds to complexity, lifestyle modifications Plan Dispo-continued stay, needs PT/OT evaluations given that she has difficulty with ambulation to begin with and now with bilateral shoulder pain Admission and Anticipated Discharge Date Admission Date: April 17, 2022 Subjective Follow-up of original presentation with weakness, hyperkalemiano specific new complaints; no bowel movementfor several days according to her Physical Exam Physical Exam: Constitutional and general: No acute distress, looks biologic age Head and face: No puffiness, atraumatic Eyes: No scleral icterus, extraocular movements normal Neck: Supple, no JVD Musculoskeletal: No acute joint swelling, no bony abnormalities Skin/dermatologic/integument: No rash, no purpura Hematologic and lymphatic: pallor +, no petechia Gastrointestinal/abdomen: Nondistended, soft, nonacute Neurologic: Cranial nerves intact, nonfocal Psychiatry: Awake, alert, flat affect Cardiovascular: Heart rhythm regular, no rub, no murmur, no gallop Respiratory: Chest movements equal, no use of accessory muscles, no adventitious sounds Extremities: Mild swelling right upper extremity Hidradenitis changes groins-not seen today Results & Data Results & Data ([facility]) Vital Signs (Past 12 Hours) Vital Signs Temp Pulse Pulse Pulse Resp BP Pulse Ox 04/21/22 11:49 04/21/22 11:30 36.5 C 80 18 122/75 93 04/21/22 07:27 80 18 95 04/21/22 07:14 71 04/21/22 06:45 36.4 C L 70 18 95/58 L 95 04/21/22 02:17 95 H 16 94 04/21/22 03:58 36.8 C 69 20 117/69 98 O2 Del Method O2 Flow Rate 04/21/22 11:49 Room Air 04/21/22 11:30 Room Air 04/21/22 07:27 4 04/21/22 07:14 04/21/22 06:45 CPAP 04/21/22 02:17 4 04/21/22 03:58 CPAP Laboratory Results Laboratory Results - last 24 hr 04/20/22 04/20/22 04/21/22 16:46 20:11 06:40 WBC 5.27 RBC 3.68 L Hgb 10.3 L Hct 32.4 L MCV 88.0 MCH 28.0 MCHC 31.8 L RDW Std Deviation 46.6 H RDW Coeff of Aleah 14.6 H Plt Count 193 MPV 9.6 Immature Gran % (Auto) 0.2 Neut % (Auto) 49.9 Lymph % (Auto) 36.6 [place] % (Auto) 7.8 Eos % (Auto) 4.7 Baso % (Auto) 0.8 Neut # (Auto) 2.63 Lymph # (Auto) 1.93 [place] # (Auto) 0.41 Eos # (Auto) 0.25 Baso # (Auto) 0.04 Immature Gran # (Auto) 0.01 Sodium Potassium Chloride Carbon Dioxide Anion Gap BUN Creatinine Est Cr Clr Drug Dosing Est GFR ( Amer) Est GFR (Non-Af Amer) POC Glucose 203 H 223 H Fasting Glucose Calcium Phosphorus Magnesium Total Bilirubin AST ALT Alkaline Phosphatase Total Protein Albumin Globulin Albumin/Globulin Ratio 04/21/22 04/21/22 04/21/22 06:40 07:54 11:39 WBC RBC Hgb Hct MCV MCH MCHC RDW Std Deviation RDW Coeff of Aleah Plt Count MPV Immature Gran % (Auto) Neut % (Auto) Lymph % (Auto) [place] % (Auto) Eos % (Auto) Baso % (Auto) Neut # (Auto) Lymph # (Auto) [place] # (Auto) Eos # (Auto) Baso # (Auto) Immature Gran # (Auto) Sodium 136 Potassium 3.9 Chloride 105 Carbon Dioxide 25 Anion Gap 6 BUN 21 Creatinine 1.03 Est Cr Clr Drug Dosing 73.4 Est GFR ( Amer) 67.0 Est GFR (Non-Af Amer) 57.8 POC Glucose 164 H 141 H Fasting Glucose 160 H Calcium 8.7 Phosphorus 3.4 Magnesium 1.5 L Total Bilirubin 0.2 AST 10 L ALT 10 Alkaline Phosphatase 73 Total Protein 6.7 Albumin 3.5 Globulin 3.2 Albumin/Globulin Ratio 1.1 PG Care Time/CCT Total # of Minutes Spent Total Time Spent with Patient: Total time spent is greater than 50% in coordination of care (as documented) at patient's floor/unit and/or counseling patient: Coding Level of Care Code 52043 Subseq Hosp Care Lvl 2 Diagnoses Hyperkalemia E87.5 Shoulder pain, bilateral M25.511; M25.512 Diverticulitis K57.92 Hidradenitis suppurativa L73.2 Obstructive sleep apnea G47.33 Anxiety and depression F41.9; F32.A Asthma J45.20 Asthma severity: mild Asthma persistence: intermittent Asthma complication type: uncomplicated Hypertension I10 Hypertension type: unspecified Hyperlipidemia E78.5 GERD (gastroesophageal reflux disease) K21.9 Restless legs syndrome G25.81 Hypothyroidism E03.9 Diabetes mellitus type 2 with complications E11.8 Ojdcfhf-Xqwlupdsc-Kheow syndrome Q87.2 Hypercalcemia E83.52 Anemia D64.9 Chronic constipation K59.09 Hypomagnesemia E83.42 Morbid obesity E66.01 (1) Asthma Asthma severity: mild Asthma persistence: intermittent Asthma complication type: uncomplicated Qualified Code(s): J45.20 - Mild intermittent asthma, uncomplicated (2) Hypertension Hypertension type: unspecified Qualified Code(s): I10 - Essential (primary) hypertension
[2022-04-21] MEDS: metroNIDAZOLE 500 MG TAB PO SCH ×2 (13:40→21:38)
[2022-04-21] MEDS ORDERED: CALCIUM CARBONATE 500 MG CHEWABLE TAB PO PRN (17:35)
[2022-04-21] MEDS: rOPINIRole HCL 1 MG TABLET PO SCH (21:38)
[2022-04-21] MEDS: AMITRIPTYLINE HCL 25 MG TAB PO SCH (21:39)
[2022-04-21] MEDS: ATORVASTATIN 40 MG TAB PO SCH (21:39)
[2022-04-21] MEDS: BACLOFEN 20 MG TAB PO SCH (21:39)
[2022-04-21] MEDS: CLOPIDOGREL BISULFATE 75 MG TAB PO SCH (21:39)
[2022-04-21] MEDS: QUEtiapine FUMARATE 200 MG TAB PO SCH (21:40)
[2022-04-22] MEDS: ENOXAPARIN INJ 40 MG/0.4 ML SYR SQ SCH ×2 (04:15→16:00)
[2022-04-22] MEDS: metroNIDAZOLE 500 MG TAB PO SCH ×3 (06:18→20:29)
[2022-04-22] MEDS: LEVOTHYROXINE SODIUM 200 MCG TABLET PO SCH (06:18)
[2022-04-22 07:08] LABS: Basophils # (auto) 0.05 K/uL (0-0.2); Basophils % (auto) 0.8 %; Eosinophils # (auto) 0.29 K/uL (0-0.50); Eosinophils % (auto) 4.9 %; Hematocrit (blood only) 33.2 % (34.1-44.9); Hemoglobin 10.7 g/dl (12.0-16.0); Immature Granulocytes # (auto) 0.02 K/uL (0.00-0.02); Immature Granulocytes % (auto) 0.3 %; Lymphocytes # (auto) 1.97 K/uL (1.2-3.4); Mean Corpuscular Hemoglobin 28.5 pg (25.0-34.0); Mean Corpuscular Hgb Conc 32.2 g/dL (32.0-36.0); Mean Corpuscular Volume 88.3 fL (80.0-100.0); Mean Platelet Volume 9.7 fL (9.4-12.3); Monocytes # (auto) 0.56 K/uL (0.24-0.82); Monocytes % (auto) 9.4 %; Neutrophils # (auto) 3.08 K/uL (1.4-6.5); Neutrophils % (auto) 51.6 %; Platelet Count 206 K/uL (130-400); RDW Coefficient of Variation 14.6 % (11.5-14.5); RDW Standard Deviation 47.3 fL (36.4-46.3); Red Blood Count 3.76 M/uL (3.93-5.22); White Blood Count 5.97 K/ul (4.8-10.8)
[2022-04-22 07:29] LABS: Albumin Level 3.4 gm/dl (3.4-5.0); Bilirubin,Total 0.3 mg/dl (0.2-1.0); Creatinine Clr Calc Pharmacy 76.2 ml/min; Est GFR (African American) 69.4 ml/min; Est GFR (Non-African American) 59.9 ml/min; Globulin 3.3 gm/dl (2.5-4.0); Magnesium 1.9 mg/dl (1.7-2.4); Phosphorus 3.2 mg/dl (2.5-4.9); Potassium 4.1 mmol/L (3.5-5.1); Total Protein 6.7 gm/dl (6.0-8.3)
[2022-04-22] MEDS: MAGNESIUM OXIDE 400 MG TAB PO SCH ×2 (07:40→20:31)
[2022-04-22] MEDS: QUEtiapine FUMARATE 25 MG TABLET PO SCH ×2 (07:40→12:17)
[2022-04-22] MEDS: CEFDINIR 300 MG CAP PO SCH ×2 (07:40→20:32)
[2022-04-22] MEDS: PANTOprazole 40 MG TAB PO SCH (07:41)
[2022-04-22] MEDS: SPIRONOLACTONE 100 MG TAB PO SCH (07:41)
[2022-04-22] MEDS: FLUTICASONE/VILANTEROL 200/25MCG 14 PUFFS/INHALER INH SCH (07:42)
[2022-04-22] MEDS: clonazePAM 0.5 MG TAB PO SCH ×2 (07:45→20:28)
[2022-04-22] MEDS: DOCUSATE SODIUM 100 MG CAP PO SCH ×2 (07:45→20:31)
[2022-04-22] MEDS: PREGABALIN 100 MG CAP PO SCH ×2 (07:45→20:28)
[2022-04-22] MEDS: INSULIN ASPART PER UNIT SC SCH ×4 (08:14→20:24)
[2022-04-22] MEDS: LANTUS PER UNIT CHARGE SQ SCH ×2 (08:31→20:24)
--- NOTE | 2022-04-22 15:17 | Hospitalist Progress Note ---
Date of Service April 22, 2022 Assessment & Plan (1) Hyperkalemia: Plan: Cause of original presentation, resolved 70 likely med induced with combination of Bactrim, spironolactone, nonsteroidal-improved, resumed spironolactone at lower dose, see prior note; communicated with dermatologystop Bactrim 04/22: No change (2) Shoulder pain, bilateral: Plan: Right upper extremity CT scan noted, agree nothing to suggest clinically necrotizing fasciitis, supportive care and symptomatic treatment (3) Diverticulitis: Plan: Doing well in this regard- switched to oral Omnicef plus metronidazole Outpatient colonoscopy; low fiber diet for now (4) Hidradenitis suppurativa: Plan: Patient with severe stage III hidradenitis involving the right groin, labia, buttock and perineum. She follows with Dermatology -consult requested but they will see as outpatient early; they stated continue Humira after acute illness (diverticulitis) resolves; okay to stop Bactrim; lower dose spironolactone resumption discussedin any case was not working according to them; they will c onsider second opinion and/or Remicade 04/22: No change (5) Obstructive sleep apnea: Plan: Chronic -Continue nocturnal CPAP with O2 4L (6) Anxiety and depression: Plan: Chronic -Continue Amitryptyline qHS -Continue Clonazepam 0.5mg po BID -Continue Prazosin-at bedtime given low blood pressure -Continue Seroquel -continue Trintellix-must be brought in from home (7) Asthma: Plan: Chronic. Patient denies cough or SOB at this time. No wheezing on exam -Continue Albuterol as needed -Continue Fluticasone/Vilanterol (8) Hypertension: Plan: BP and hemodynamics stableno change (9) Hyperlipidemia: Plan: Chronic -Continue Atorvastatin qHS (10) GERD (gastroesophageal reflux disease): Plan: on PPIno change (11) Restless legs syndrome: Plan: -Continue Baclofen qHS -Continue Lyrica 100mg po BID -Continue Ropinirole - recently increased due to motor restleness impacting sleep (12) Hypothyroidism: Plan: Chronic. 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: Plan: Sugars again higher, tighter carb ratio (14) Uqhkgbc-Nzjakaahy-Yfwpm syndrome: Plan: causes port wine stains and bony hypertrophy of limbs as well as multiple microscopic fast flow AV shunts--> can lead to ulcerations of skin and high output cardiac failure (15) Hypercalcemia: Plan: With suppressed PTH, somewhat befuddling, improved, follow; vitamin D on the low side; follows endocrineno changes made (16) Anemia: Plan: Likely inflammatory in part, follow (17) Chronic constipation: Plan: Lot of fecal burden noted on CT scan; enema today (18) Morbid obesity: Plan: Adds to complexity, lifestyle modifications Plan Dispo-p Admission and Anticipated Discharge Date Admission Date: April 17, 2022 Subjective Follow-up of original presentation with weakness, hyperkalemiano specific new complaints; no bowel movement after magnesium citrate Physical Exam Physical Exam: Constitutional and general: No acute distress, looks biologic age Head and face: No puffiness, atraumatic Eyes: No scleral icterus, extraocular movements normal Neck: Supple, no JVD Musculoskeletal: No acute joint swelling, no bony abnormalities Skin/dermatologic/integument: No rash, no purpura Hematologic and lymphatic: pallor +, no petechia Gastrointestinal/abdomen: distended, soft, nonacute Neurologic: Cranial nerves intact, nonfocal Psychiatry: Awake, alert, flat affect Cardiovascular: Heart rhythm regular, no rub, no murmur, no gallop Respiratory: Chest movements equal, no use of accessory muscles, no adventitious sounds Extremities: Mild swelling right upper extremity Hidradenitis changes groins-not seen today Results & Data Results & Data ([facility]) Vital Signs (Past 12 Hours) Vital Signs Temp Pulse Pulse Pulse Resp BP BP 04/22/22 11:27 36.8 C 83 16 129/62 04/22/22 08:28 36.7 C 83 20 119/72 04/22/22 07:15 74 04/22/22 04:19 36.8 C 90 20 108/70 Pulse Ox O2 Del Method 04/22/22 11:27 90 Room Air 04/22/22 08:28 93 BiPAP 04/22/22 07:15 04/22/22 04:19 94 CPAP Laboratory Results Laboratory Results - last 24 hr 04/21/22 04/21/22 04/22/22 17:07 20:06 06:43 WBC 5.97 RBC 3.76 L Hgb 10.7 L Hct 33.2 L MCV 88.3 MCH 28.5 MCHC 32.2 RDW Std Deviation 47.3 H RDW Coeff of Aleah 14.6 H Plt Count 206 MPV 9.7 Immature Gran % (Auto) 0.3 Neut % (Auto) 51.6 Lymph % (Auto) 33.0 [place] % (Auto) 9.4 Eos % (Auto) 4.9 Baso % (Auto) 0.8 Neut # (Auto) 3.08 Lymph # (Auto) 1.97 [place] # (Auto) 0.56 Eos # (Auto) 0.29 Baso # (Auto) 0.05 Immature Gran # (Auto) 0.02 Sodium Potassium Chloride Carbon Dioxide Anion Gap BUN Creatinine Est Cr Clr Drug Dosing Est GFR ( Amer) Est GFR (Non-Af Amer) POC Glucose 209 H 196 H Fasting Glucose Calcium Phosphorus Magnesium Total Bilirubin AST ALT Alkaline Phosphatase Total Protein Albumin Globulin Albumin/Globulin Ratio 04/22/22 04/22/22 04/22/22 06:43 07:59 11:46 WBC RBC Hgb Hct MCV MCH MCHC RDW Std Deviation RDW Coeff of Aleah Plt Count MPV Immature Gran % (Auto) Neut % (Auto) Lymph % (Auto) [place] % (Auto) Eos % (Auto) Baso % (Auto) Neut # (Auto) Lymph # (Auto) [place] # (Auto) Eos # (Auto) Baso # (Auto) Immature Gran # (Auto) Sodium 135 L Potassium 4.1 Chloride 103 Carbon Dioxide 28 Anion Gap 4 BUN 16 Creatinine 1.00 Est Cr Clr Drug Dosing 76.2 Est GFR ( Amer) 69.4 Est GFR (Non-Af Amer) 59.9 POC Glucose 213 H 202 H Fasting Glucose 165 H Calcium 9.0 Phosphorus 3.2 Magnesium 1.9 Total Bilirubin 0.3 AST 12 L ALT 12 Alkaline Phosphatase 73 Total Protein 6.7 Albumin 3.4 Globulin 3.3 Albumin/Globulin Ratio 1.0 PG Care Time/CCT Total # of Minutes Spent Total Time Spent with Patient: Total time spent is greater than 50% in coordination of care (as documented) at patient's floor/unit and/or counseling patient: Coding Level of Care Code 77106 Subseq Hosp Care Lvl 2 Diagnoses Hyperkalemia E87.5 Shoulder pain, bilateral M25.511; M25.512 Diverticulitis K57.92 Hidradenitis suppurativa L73.2 Obstructive sleep apnea G47.33 Anxiety and depression F41.9; F32.A Asthma J45.20 Asthma severity: mild Asthma persistence: intermittent Asthma complication type: uncomplicated Hypertension I10 Hypertension type: unspecified Hyperlipidemia E78.5 GERD (gastroesophageal reflux disease) K21.9 Restless legs syndrome G25.81 Hypothyroidism E03.9 Diabetes mellitus type 2 with complications E11.8 Wzvtvda-Lwiaaaeyo-Uhuse syndrome Q87.2 Hypercalcemia E83.52 Anemia D64.9 Chronic constipation K59.09 Morbid obesity E66.01 (1) Asthma Asthma severity: mild Asthma persistence: intermittent Asthma complication type: uncomplicated Qualified Code(s): J45.20 - Mild intermittent asthma, uncomplicated (2) Hypertension Hypertension type: unspecified Qualified Code(s): I10 - Essential (primary) hypertension
[2022-04-22] MEDS: QUEtiapine FUMARATE 200 MG TAB PO SCH (20:29)
[2022-04-22] MEDS: rOPINIRole HCL 1 MG TABLET PO SCH (20:29)
[2022-04-22] MEDS: CLOPIDOGREL BISULFATE 75 MG TAB PO SCH (20:31)
[2022-04-22] MEDS: PRAZOSIN HCL 1 MG CAP PO SCH (20:31)
[2022-04-22] MEDS: BACLOFEN 20 MG TAB PO SCH (20:32)
[2022-04-22] MEDS: ATORVASTATIN 40 MG TAB PO SCH (20:33)
[2022-04-22] MEDS: AMITRIPTYLINE HCL 25 MG TAB PO SCH (20:33)
[2022-04-23] MEDS ORDERED: INSULIN ASPART PER UNIT SC ONE
[2022-04-23] MEDS: ENOXAPARIN INJ 40 MG/0.4 ML SYR SQ SCH ×2 (03:10→15:38)
[2022-04-23] MEDS: LEVOTHYROXINE SODIUM 200 MCG TABLET PO SCH (05:45)
[2022-04-23] MEDS: metroNIDAZOLE 500 MG TAB PO SCH ×3 (05:45→21:43)
[2022-04-23 07:57] LABS: Basophils # (auto) 0.03 K/uL (0-0.2); Basophils % (auto) 0.5 %; Eosinophils # (auto) 0.27 K/uL (0-0.50); Eosinophils % (auto) 4.4 %; Hematocrit (blood only) 33.4 % (34.1-44.9); Hemoglobin 10.7 g/dl (12.0-16.0); Immature Granulocytes # (auto) 0.02 K/uL (0.00-0.02); Immature Granulocytes % (auto) 0.3 %; Lymphocytes # (auto) 1.65 K/uL (1.2-3.4); Mean Corpuscular Hemoglobin 27.8 pg (25.0-34.0); Mean Corpuscular Volume 86.8 fL (80.0-100.0); Monocytes # (auto) 0.48 K/uL (0.24-0.82); Monocytes % (auto) 7.9 %; Neutrophils # (auto) 3.65 K/uL (1.4-6.5); Neutrophils % (auto) 59.9 %; Platelet Count 223 K/uL (130-400); RDW Coefficient of Variation 14.9 % (11.5-14.5); RDW Standard Deviation 47.4 fL (36.4-46.3); Red Blood Count 3.85 M/uL (3.93-5.22)
[2022-04-23] MEDS: LANTUS PER UNIT CHARGE SQ SCH (08:16)
[2022-04-23] MEDS: INSULIN ASPART PER UNIT SC SCH ×4 (08:16→21:44)
[2022-04-23] MEDS: QUEtiapine FUMARATE 25 MG TABLET PO SCH ×2 (08:23→14:05)
[2022-04-23] MEDS: CEFDINIR 300 MG CAP PO SCH ×2 (08:24→21:42)
[2022-04-23] MEDS: FLUTICASONE/VILANTEROL 200/25MCG 14 PUFFS/INHALER INH SCH (08:24)
[2022-04-23] MEDS: MAGNESIUM OXIDE 400 MG TAB PO SCH ×2 (08:24→21:43)
[2022-04-23] MEDS: PANTOprazole 40 MG TAB PO SCH (08:24)
[2022-04-23] MEDS: SPIRONOLACTONE 100 MG TAB PO SCH (08:25)
[2022-04-23] MEDS: DOCUSATE SODIUM 100 MG CAP PO SCH ×2 (08:27→21:42)
[2022-04-23] MEDS: PREGABALIN 100 MG CAP PO SCH ×2 (08:27→21:43)
[2022-04-23] MEDS: clonazePAM 0.5 MG TAB PO SCH ×2 (08:27→21:43)
[2022-04-23 08:34] LABS: Albumin Level 3.4 gm/dl (3.4-5.0); Bilirubin,Total 0.3 mg/dl (0.2-1.0); Calcium 8.9 mg/dl (8.5-10.1); Creatinine Clr Calc Pharmacy 82.8 ml/min; Est GFR (African American) 76.8 ml/min; Est GFR (Non-African American) 66.3 ml/min; Globulin 3.4 gm/dl (2.5-4.0); Magnesium 1.9 mg/dl (1.7-2.4); Potassium 4.1 mmol/L (3.5-5.1); Total Protein 6.8 gm/dl (6.0-8.3)
--- NOTE | 2022-04-23 11:16 | XRay Report ---
XR KUB/Abdomen 1 view CLINICAL HISTORY: constipation TECHNIQUE: 1 view of the abdomen was obtained. Comparison: None available at the time of this dictation. FINDINGS: Lung bases are unremarkable. The osseous structures are grossly unremarkable. The bowel gas pattern i s nonobstructive. Large stool burden is seen without evidence of inspissated stool in the rectum. IMPRESSION: There is a large stool burden without evidence of inspissated stool. ACT 112: Negative or not required by law. Electronically signed by: Rob Damian M.D. 04/23/2022 11:15 AM
[2022-04-23] MEDS ORDERED: PHARMACY GLYCEMIC MGMT CONSULT PRN (18:45)
--- NOTE | 2022-04-23 18:49 | Hospitalist Progress Note ---
Date of Service April 23, 2022 Assessment & Plan (1) Hyperkalemia: Plan: Cause of original presentation, resolved 70 likely med induced with combination of Bactrim, spironolactone, nonsteroidal-improved, resumed spironolactone at lower dose, see prior note; communicated with dermatologystop Bactrim 04/23: No change (2) Shoulder pain, bilateral: Plan: Right upper extremity CT scan noted, agree nothing to suggest clinically necrotizing fasciitis, supportive care and symptomatic treatment (3) Diverticulitis: Plan: Doing well in this regard- switched to oral Omnicef plus metronidazole Outpatient colonoscopy; low fiber diet for now; (4) Hidradenitis suppurativa: Plan: Patient with severe stage III hidradenitis involving the right groin, labia, buttock and perineum. She follows with Dermatology -consult requested but they will see as outpatient early; they stated continue Humira after acute illness (diverticulitis) resolves; okay to stop Bactrim; lower dose spironolactone resumption discussedin any case was not working according to them; they will consider second opinion and/or Remicade 04/23: No change (5) Obstructive sleep apnea: Plan: Chronic -Continue nocturnal CPAP with O2 4L (6) Anxiety and depression: Plan: Chronic -Continue Amitryptyline qHS -Continue Clonazepam 0.5mg po BID -Continue Prazosin-at bedtime given low blood pressure -Continue Seroquel -continue Trintellix-must be brought in from home (7) Asthma: Plan: Chronic. Patient denies cough or SOB at this time. No wheezing on exam -Continue Albuterol as needed -Continue Fluticasone/Vilanterol (8) Hypertension: Plan: BP and hemodynamics stableno change (9) Hyperlipidemia: Plan: Chronic -Continue Atorvastatin qHS (10) GERD (gastroesophageal reflux disease): Plan: on PPIno change (11) Restless legs syndrome: Plan: -Continue Baclofen qHS -Continue Lyrica 100mg po BID -Continue Ropinirole - recently increased due to motor restleness impacting sleep (12) Hypothyroidism: Plan: Chronic. 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: Plan: Continuing poor control; increase Lantus, pharmacy consult (14) Epodccr-Fccvvcvov-Xaalj syndrome: Plan: causes port wine stains and bony hypertrophy of limbs as well as multiple microscopic fast flow AV shunts--> can lead to ulcerations of skin and high output cardiac failure (15) Hypercalcemia: Plan: With suppressed PTH, somewhat befuddling, improved, follow; vitamin D on the low side; follows endocrineno changes made (16) Anemia: Plan: Likely inflammatory in part, follow (17) Chronic constipation: Plan: Lot of fecal burden noted on CT scan; enema was not taken yesterday; reordered for today; (KUB significant stool burden) (18) Morbid obesity: Plan: Adds to complexity, lifestyle modifications Plan Dispo-p Admission and Anticipated Discharge Date Admission Date: April 17, 2022 Subjective Follow-up of original presentation with weakness, hyperkalemiano specific new complaints; did have 1 BM Physical Exam Physical Exam: Constitutional and general: No acute distress, looks biologic age Head and face: No puffiness, atraumatic Eyes: No scleral icterus, extraocular movements normal Neck: Supple, no JVD Musculoskeletal: No acute joint swelling, no bony abnormalities Skin/dermatologic/integument: No rash, no purpura Hematologic and lymphatic: pallor +, no petechia Gastrointestinal/abdomen: distended, soft, nonacute Neurologic: Cranial nerves intact, nonfocal Psychiatry: Awake, alert, flat affect Cardiovascular: Heart rhythm regular, no rub, no murmur, no gallop Respiratory: Chest movements equal, no use of accessory muscles, no adventitious sounds Extremities: Mild swelling right upper extremity Hidradenitis changes groins-not seen today Results & Data Results & Data ([facility]) Vital Signs (Past 12 Hours) Vital Signs Temp Pulse Pulse Resp BP Pulse Ox O2 Del Method 04/23/22 16:00 36.7 C 99 H 18 143/70 H 94 Room Air 04/23/22 15:20 90 04/23/22 12:00 36.6 C 104 H 18 115/70 91 Room Air 04/23/22 09:04 Room Air 04/23/22 07:20 80 Laboratory Results Laboratory Results - last 24 hr 04/22/22 04/23/22 04/23/22 20:16 06:49 06:49 WBC 6.10 RBC 3.85 L Hgb 10.7 L Hct 33.4 L MCV 86.8 MCH 27.8 MCHC 32.0 RDW Std Deviation 47.4 H RDW Coeff of Aleah 14.9 H Plt Count 223 MPV 10.0 Immature Gran % (Auto) 0.3 Neut % (Auto) 59.9 Lymph % (Auto) 27.0 [place] % (Auto) 7.9 Eos % (Auto) 4.4 Baso % (Auto) 0.5 Neut # (Auto) 3.65 Lymph # (Auto) 1.65 [place] # (Auto) 0.48 Eos # (Auto) 0.27 Baso # (Auto) 0.03 Immature Gran # (Auto) 0.02 Sodium 137 Potassium 4.1 Chloride 106 Carbon Dioxide 26 Anion Gap 5 BUN 15 Creatinine 0.92 Est Cr Clr Drug Dosing 82.8 Est GFR ( Amer) 76.8 Est GFR (Non-Af Amer) 66.3 POC Glucose 242 H Fasting Glucose 210 H Calcium 8.9 Phosphorus 3.0 Magnesium 1.9 Total Bilirubin 0.3 AST 12 L ALT 13 Alkaline Phosphatase 76 Total Protein 6.8 Albumin 3.4 Globulin 3.4 Albumin/Globulin Ratio 1.0 04/23/22 04/23/22 04/23/22 07:45 11:43 16:55 WBC RBC Hgb Hct MCV MCH MCHC RDW Std Deviation RDW Coeff of Aleah Plt Count MPV Immature Gran % (Auto) Neut % (Auto) Lymph % (Auto) [place] % (Auto) Eos % (Auto) Baso % (Auto) Neut # (Auto) Lymph # (Auto) [place] # (Auto) Eos # (Auto) Baso # (Auto) Immature Gran # (Auto) Sodium Potassium Chloride Carbon Dioxide Anion Gap BUN Creatinine Est Cr Clr Drug Dosing Est GFR ( Amer) Est GFR (Non-Af Amer) POC Glucose 217 H 229 H 249 H Fasting Glucose Calcium Phosphorus Magnesium Total Bilirubin AST ALT Alkaline Phosphatase Total Protein Albumin Globulin Albumin/Globulin Ratio PG Care Time/CCT Total # of Minutes Spent Total Time Spent with Patient: Total time spent is greater than 50% in coordination of care (as documented) at patient's floor/unit and/or counseling patient: Coding Level of Care Code 21463 Subseq Hosp Care Lvl 2 Diagnoses Hyperkalemia E87.5 Shoulder pain, bilateral M25.511; M25.512 Diverticulitis K57.92 Hidradenitis suppurativa L73.2 Obstructive sleep apnea G47.33 Anxiety and depression F41.9; F32.A Asthma J45.20 Asthma severity: mild Asthma persistence: intermittent Asthma complication type: uncomplicated Hypertension I10 Hypertension type: unspecified Hyperlipidemia E78.5 GERD (gastroesophageal reflux disease) K21.9 Restless legs syndrome G25.81 Hypothyroidism E03.9 Diabetes mellitus type 2 with complications E11.8 Bujytti-Gykeusypp-Vqzny syndrome Q87.2 Hypercalcemia E83.52 Anemia D64.9 Chronic constipation K59.09 Morbid obesity E66.01 (1) Asthma Asthma severity: mild Asthma persistence: intermittent Asthma complication type: uncomplicated Qualified Code(s): J45.20 - Mild intermittent asthma, uncomplicated (2) Hypertension Hypertension type: unspecified Qualified Code(s): I10 - Essential (primary) hypertension
[2022-04-23] MEDS ORDERED: LANTUS PER UNIT CHARGE SQ SCH (21:00)
[2022-04-23] MEDS: rOPINIRole HCL 1 MG TABLET PO SCH (21:42)
[2022-04-23] MEDS: QUEtiapine FUMARATE 200 MG TAB PO SCH (21:42)
[2022-04-23] MEDS: CLOPIDOGREL BISULFATE 75 MG TAB PO SCH (21:43)
[2022-04-23] MEDS: ATORVASTATIN 40 MG TAB PO SCH (21:43)
[2022-04-23] MEDS: AMITRIPTYLINE HCL 25 MG TAB PO SCH (21:43)
[2022-04-23] MEDS: PRAZOSIN HCL 1 MG CAP PO SCH (21:43)
[2022-04-23] MEDS: BACLOFEN 20 MG TAB PO SCH (21:43)
[2022-04-24] MEDS ORDERED: INSULIN ASPART PER UNIT SC ONE (00:30)
[2022-04-24] MEDS: ENOXAPARIN INJ 40 MG/0.4 ML SYR SQ SCH (04:01)
[2022-04-24] MEDS: LEVOTHYROXINE SODIUM 200 MCG TABLET PO SCH (05:43)
[2022-04-24] MEDS: metroNIDAZOLE 500 MG TAB PO SCH ×2 (05:43→07:37)
[2022-04-24 07:09] LABS: Basophils # (auto) 0.03 K/uL (0-0.2); Basophils % (auto) 0.5 %; Eosinophils # (auto) 0.28 K/uL (0-0.50); Eosinophils % (auto) 4.7 %; Hematocrit (blood only) 32.7 % (34.1-44.9); Hemoglobin 10.4 g/dl (12.0-16.0); Immature Granulocytes # (auto) 0.01 K/uL (0.00-0.02); Immature Granulocytes % (auto) 0.2 %; Lymphocytes # (auto) 1.82 K/uL (1.2-3.4); Lymphocytes % (auto) 30.8 %; Mean Corpuscular Hemoglobin 28.1 pg (25.0-34.0); Mean Corpuscular Hgb Conc 31.8 g/dL (32.0-36.0); Mean Corpuscular Volume 88.4 fL (80.0-100.0); Mean Platelet Volume 9.8 fL (9.4-12.3); Monocytes # (auto) 0.47 K/uL (0.24-0.82); Neutrophils % (auto) 55.8 %; Platelet Count 218 K/uL (130-400); RDW Coefficient of Variation 15.1 % (11.5-14.5); RDW Standard Deviation 48.4 fL (36.4-46.3); White Blood Count 5.91 K/ul (4.8-10.8)
[2022-04-24 07:37] LABS: Albumin Globulin Ratio 1.1 (0.9-2); Albumin Level 3.4 gm/dl (3.4-5.0); Bilirubin,Total 0.3 mg/dl (0.2-1.0); Calcium 8.7 mg/dl (8.5-10.1); Creatinine Clr Calc Pharmacy 74.3 ml/min; Est GFR (African American) 67.8 ml/min; Est GFR (Non-African American) 58.5 ml/min; Globulin 3.2 gm/dl (2.5-4.0); Magnesium 1.9 mg/dl (1.7-2.4); Phosphorus 3.4 mg/dl (2.5-4.9); Potassium 3.9 mmol/L (3.5-5.1); Total Protein 6.6 gm/dl (6.0-8.3)
[2022-04-24] MEDS: DOCUSATE SODIUM 100 MG CAP PO SCH (07:37)
[2022-04-24] MEDS: QUEtiapine FUMARATE 25 MG TABLET PO SCH ×2 (07:37→11:47)
[2022-04-24] MEDS: PANTOprazole 40 MG TAB PO SCH (07:37)
[2022-04-24] MEDS: MAGNESIUM OXIDE 400 MG TAB PO SCH (07:37)
[2022-04-24] MEDS: CEFDINIR 300 MG CAP PO SCH (07:38)
[2022-04-24] MEDS: SPIRONOLACTONE 100 MG TAB PO SCH (07:38)
[2022-04-24] MEDS: PREGABALIN 100 MG CAP PO SCH (07:42)
[2022-04-24] MEDS: clonazePAM 0.5 MG TAB PO SCH (07:42)
[2022-04-24] MEDS: INSULIN ASPART PER UNIT SC SCH ×2 (08:11→12:07)
--- NOTE | 2022-04-24 08:31 | Pharmacy Report ---
Pharmacy Glycemic Short Note 2 - Date of Service April 24, 2022 - Glycemic Short BSG Results (Last 24 hours): 04/23/22 04/23/22 04/23/22 06:49 11:43 16:55 POC Glucose 229 H 249 H Fasting Glucose 210 H 04/23/22 04/24/22 04/24/22 20:21 01:06 06:22 POC Glucose 284 H 202 H Fasting Glucose 191 H 04/24/22 07:43 POC Glucose 197 H Fasting Glucose OUTPATIENT ANTIDIABETIC REGIMEN: * Lantus 18 units SC BID * Novolog 7 units SC TIDM * Trulicity 3 mg SC weekly on Mondays * Metformin 1000 mg PO BIDM HbA1c: 8% (04/18/22) ASSESSMENT: * AZRA is a 61 year old female who presented to [facility] ED on 04/17/22 with complaints of muscle pain and cramping * Subsequently found to have OLENA with K+ of 7.3 mmol/L, both of which have now seemingly resolved * Pertinent current/past medical history includes acute diverticulitis (currently receiving cefdinir/metronidazole), obesity, and T2DM * BSGs have been elevated over past 48 hours (persistently above >200 mg/dL), pharmacy consulted on 04/23/22 * No obvious stressors (besides infection), so likely related simply to inadequate insulin doses * Reasonable in light of elevated A1c and no metformin/Trulicity while inpatient * Will increase Lantus and tighten Novolog today PLAN FOR INPATIENT GLYCEMIC CONTROL: * Hold outpatient oral diabetes medications * Basal insulin * Lantus 25 units SQ BID * Bolus insulin * NovoLog per scale ACHS or Q6hrs while NPO * Goal Range: Low 110 mg/dL - High 140 mg/dL * Correction Factor: 15 mg/dL/unit * Nutritional / Prandial insulin per carb ratio of 1 unit per 4 grams CHO consumed
[2022-04-24] MEDS: FLUTICASONE/VILANTEROL 200/25MCG 14 PUFFS/INHALER INH SCH (08:46)
[2022-04-24] MEDS ORDERED: LANTUS PER UNIT CHARGE SQ SCH ×3 (09:00→21:00)
--- NOTE | 2022-04-24 13:09 | Discharge Summary ---
Date of Service April 24, 2022 Admission HPI Per Admitting Provider Calista Pickering is a 61yo female with history of DM, HTN, GERD, Asthma, Anxiety, VERA and Hidradenitis suppurativa presenting with hyperkalemia. On 04/15/22 patient fell at home x 2. She denies loss of consciousness or head trauma. On 04/16/22 she felt very tired and fatigued. Today she felt that her legs were very weak and she had some muscle spasms and cramping. Patient came to the ER with these complaints. Found to be hyperkalemic with K of 7.3. Patient with chronic nausea, intermittent muscle cramps and worsening heartburn symptoms. Otherwise denies chest pain, palpitations, cough, SOB, abdominal pain , diarrhea or constipation. She is eating well but has not been drinking as much fluid as she usually does. She has normal UOP, reports her urine is dark sometimes. She reports having a flare up of her hidradenitis suppurativa as of March 27. She was seen by Dermatology for this issue on 04/07/22 and her Bactrim was increased to Bactrim DS 1 tab po BID x 14 days. Her spironolactone was also i ncreased from 100mg po daily to 100mg po BID. Patient is on Losartan as well as Flurbiprofen as well. EKG with no acute changes. Patient medically treated in the ER with IVF, Ca gluconate, Insulin and Patiromer ER Course: NSS x 1L, Calcium gluconate 1gm x 2, Insulin regular x 10u, Ceftriaxone x 2gm, Flagyl x 500mg, Patiromer x 8.4gm Principal Diagnosis Hyperkalemia, acute diverticulitis Discharge Exam Constitutional and general: No acute distress, looks biologic age Head and face: No puffiness, atraumatic Eyes: No scleral icterus, extraocular movements normal Neck: Supple, no JVD Musculoskeletal: No acute joint swelling, no bony abnormalities Skin/dermatologic/integument: No rash, no purpura Hematologic and lymphatic: pallor +, no petechia Gastrointestinal/abdomen: distended, soft, nonacute Neurologic: Cranial nerves intact, nonfocal Psychiatry: Awake, alert, flat affect Cardiovascular: Heart rhythm regular, no rub, no murmur, no gallop Respiratory: Chest movements equal, no use of accessory muscles, no adventitious sounds Extremities: Mild swelling right upper extremity Hidradenitis changes groins-not seen today Vital Signs Temp Pulse Pulse Pulse Resp BP BP 04/24/22 11:29 36.8 C 100 H 20 168/85 H 04/24/22 07:57 36.5 C 71 20 127/72 04/24/22 07:16 75 04/24/22 03:23 36.4 C L 75 18 114/67 04/24/22 03:15 73 21 04/23/22 23:15 88 21 04/23/22 22:54 36.5 C 97 H 20 152/85 H 04/23/22 19:40 04/23/22 19:51 36.6 C 85 20 122/72 04/23/22 16:00 36.7 C 99 H 18 143/70 H 04/23/22 15:20 90 Pulse Ox O2 Del Method O2 Flow Rate 04/24/22 11:29 93 Room Air 04/24/22 07:57 97 CPAP 04/24/22 07:16 04/24/22 03:23 97 CPAP 04/24/22 03:15 97 4 04/23/22 23:15 98 4 04/23/22 22:54 95 Room Air 04/23/22 19:40 Room Air, CPAP 04/23/22 19:51 95 Room Air 04/23/22 16:00 94 Room Air 04/23/22 15:20 Intake and Output 04/23/22 04/24/22 04/24/22 22:59 06:59 14:59 Intake Total 360 / 1495 300 / 1495 Output Total 500 / 900 Balance -140 / 595 300 / 595 Intake: Oral 360 / 1495 300 / 1495 Output: Urine 500 / 900 Other: # Unmeasured Voids 1 Weight 122.8 kg Weight Measurement Method [facility] Discharge Data Allergies Allergy/AdvReac Type Severity Reaction Status Date / Time adhesive Allergy Intermediate "eats my Verified 04/17/22 19:59 skin" Aminoglycosides Allergy Intermediate Hives Verified 04/17/22 19:59 azithromycin Allergy Intermediate Hives Verified 04/17/22 19:59 bacitracin Allergy Intermediate RASH Verified 04/17/22 19:59 Cephalosporins Allergy Intermediate Hives Verified 04/17/22 19:59 ciprofloxacin Allergy Intermediate EYE Verified 04/17/22 19:59 SWELLING, "burned my eyelids" erythromycin base Allergy Intermediate HIVES Verified 04/17/22 19:59 minocycline Allergy Intermediate HIVES Verified 04/17/22 19:59 mupirocin Allergy Intermediate RASH Verified 04/17/22 19:59 neomycin Allergy Intermediate RASH Verified 04/17/22 19:59 Penicillins Allergy Intermediate HIVES Verified 04/17/22 19:59 polymyxin B Allergy Intermediate RASH Verified 04/17/22 19:59 Quinolones Allergy Intermediate Hives Verified 04/17/22 19:59 tetracycline Allergy Intermediate HIVES Verified 04/17/22 19:59 hydroxyzine Allergy Unknown PT DOESN'T Verified 04/17/22 19:58 REMEMBER REACTION topiramate AdvReac Severe SOB,DIZZINE Verified 04/17/22 19:59 SS aspirin AdvReac Intermediate NOSEBLEEDS- Verified 04/17/22 19:59 CAN TAKE IBUPROFEN duloxetine AdvReac Intermediate slurred Verified 04/17/22 19:59 speech/memory loss/ "like I was drunk" Consultations 04/17/22 21:58 ED Decision to Admit Stat 04/19/22 13:39 Consult Orthopedic Surgery Routine 04/20/22 18:45 Consult Dermatology Routine Ordered Studies 04/17/22 20:14 CT abd pelvis wo con Stat 04/19/22 11:43 CT arm [CT humerus RT wo con] Urgent Hospital Course (1) Hyperkalemia: Cause of original presentation, resolved - likely med induced with combination of Bactrim, spironolactone, nonsteroidal-improved, resumed spironolactone at lower dose, see prior note; communicated with dermatologystop Bactrim (2) Shoulder pain, bilateral: Right upper extremity CT scan noted, agree nothing to suggest clinically necrotizing fasciitis, supportive care and symptomatic treatment; On day of discharge no complaints in this regard (3) Diverticulitis: Doing well in this regard- switched to oral Omnicef plus metronidazole-complete about 10 days, Outpatient colonoscopy; low fiber diet for now; Outpatient GI (4) Hidradenitis suppurativa: Patient with severe stage III hidradenitis involving the right groin, labia, buttock and perineum. She follows with Dermatology -consult requested but they will see as outpatient early; they stated continue Humira after acute illness (diverticulitis) resolves which it has; okay to stop Bactrim; lower dose spironolactone resumption discussedin any case was not working according to them; they will consider second opinion and/or Remicade Dr. Christy said they will evaluate early (5) Obstructive sleep apnea: Chronic -Continue nocturnal CPAP with O2 4L (6) Anxiety and depression: Chronic -Continue Amitryptyline qHS -Continue Clonazepam 0.5mg po BID -Continue Prazosin-at bedtime given low blood pressure -Continue Seroquel -continue Trintellix-must be brought in from home (7) Asthma: Chronic. Patient denies cough or SOB at this time. No wheezing on exam -Continue Albuterol as needed -Continue Fluticasone/Vilanterol (8) Hypertension: BP drifting up; resume metoprolol at discharge; off ARBwill need to be followed (note in-house was not on any medications other than prazosin that has a BP lowering effect) (9) Hyperlipidemia: Chronic -Continue Atorvastatin qHS (10) GERD (gastroesophageal reflux disease): on PPIno change (11) Restless legs syndrome: -Continue Baclofen qHS -Continue Lyrica 100mg po BID -Continue Ropinirole - recently increased due to motor restleness impacting sleep (12) Hypothyroidism: Chronic. 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 as well as multiple microscopic fast flow AV shunts--> can lead to ulcerations of skin and high output cardiac failure (15) Hypercalcemia: With suppressed PTH, somewhat befuddling, improved, follow; vitamin D on the low side; follows endocrineno changes made (16) Anemia: Likely inflammatory in part, follow (17) Chronic constipation: Had a good bowel movementfollow-up as outpatient and GI (18) Morbid obesity: Adds to complexity, lifestyle modifications Plan Wants to go home today, feels well Total Time Total Time Spent Total Time Spent (In Minutes): 40 minutes Discharge Plan Discharge Items Patient Disposition: Home - Self-Care Reason For Visit: HYPERKALEMIA Discharge Diagnosis: Hyperkalemia, acute diverticulitis Activity: Resume your previous activity Non-emergency contact: Primary Care Provider Call non-emergency contact if: your symptoms worsen Follow-up/Referrals: Ethan Karimi MD [Primary Care Provider] - Lokesh Beth MD [Physician] - (Poorly controlled sugars, also hypercalcemia on presentation to the hospital with suppressed PTH) Kim Morocho PA-C [Physician Investment Representative] - (Missed appointment, diverticulitis, reschedule and referring for colonoscopy after resolution of diverticulitis) Ga Christy MD [Physician] - (Known to you1 week) Diet: Carb Consistent or DM2, Low Potassium (2gm) and Other - See Diet Comment Diet Comment: In addition, low fiber diet for about 6 weeks Addtl Attending Provider Instructions: Call your travel occupational therapist with blood sugar readings within a week; call your belt builder for early appointment Pending Studies at Discharge: No Stand-Alone Forms: [facility] [place], Smoking Cessation Medications and DC Order Prescriptions: New metronidazole 500 mg Tablet 500 mg PO Q8 Qty: 12 0RF Rx Instructions: Do not consume alcohol while taking magnesium oxide 400 mg (241.3 mg magnesium) Tablet 800 mg PO BID Qty: 120 0RF cefdinir 300 mg Capsule 300 mg PO BID Qty: 8 0RF Continued Dexilant 60 mg capsule,biphase delayed releas 60 mg PO QAM Qty: 90 2RF metoprolol tartrate 25 mg tablet 12.5 mg PO BID Qty: 30 5RF clopidogrel 75 mg tablet 75 mg PO HS Qty: 30 5RF atorvastatin 80 mg tablet 80 mg PO HS Qty: 90 1RF Rx Instructions: 1 tablet per day dulaglutide 3 mg/0.5 mL pen injector 3 mg subcut WK 90 Days Qty: 45 3RF Label Comments: EVERY WEDNESDAY Rx Instructions: TAKE THIS MED EVERY WEDNESDAY adalimumab 40 mg/0.4 mL pen injector kit See Rx Instructions subcut .COMPLEX Qty: 4 2RF Rx Instructions: inject one - 40 mg/0.4 mL pen every week subcut pregabalin 100 mg capsule 100 mg PO BID Qty: 60 3RF Rx Instructions: 1 capsule twice per day. (DME) pen needle, diabetic [UltiCare Pen Needle] 32 gauge x 1/4" needle See Rx Instructions .Route Qty: 500 3RF Rx Instructions: use 6 times per day (DME) Incentive Spirometer Misc See Rx Instructions .MEDSUPPLY Qty: 1 0RF Rx Instructions: As directed quetiapine [Seroquel] 50 mg tablet 50 mg PO BID Novolog Flexpen U-100 Insulin 100 unit/mL (3 mL) insulin pen 7 unit subcut TID Label Comments: SLIDING SCALE USE ONLY Rx Instructions: inject 7 units 3 times daily with meals, sliding scale amitriptyline 25 mg tablet 25 mg PO HS (DME) Dexcom G6 Sensor Device See Rx Instructions .Route Rx Instructions: As directed (DME) Dexcom G6 Lockstitch Zipper Setter Misc See Rx Instructions .Route Rx Instructions: As directed (DME) Dexcom G6 Transmitter Device See Rx Instructions .Route Rx Instructions: As directed baclofen 20 mg tablet 20 mg PO HS Rx Instructions: at bedtime albuterol sulfate [Ventolin HFA] 90 mcg/actuation HFA aerosol inhaler 1 - 2 puff Inhalation Q4H PRN (Reason: shortness of breath) Qty: 8 3RF famotidine 40 mg tablet 40 mg PO BID Qty: 60 5RF Hold Instructions: for now quetiapine 400 mg tablet 400 mg PO HS Qty: 30 0RF Lantus Solostar U-100 Insulin 100 unit/mL (3 mL) insulin pen 18 unit subcut BID Label Comments: 20 units every 12 hours Rx Instructions: 20 units subcut Q 12 hour; ropinirole 0.5 mg tablet 1.5 mg PO HS Advair HFA 115-21 mcg/actuation HFA aerosol inhaler 2 puff inhalation BID docusate sodium [Stool Softener] 100 mg Tablet 100 mg PO DAILY levothyroxine 200 mcg tablet 200 mcg PO QAM Trintellix 20 mg tablet 20 mg PO BID clonazepam 0.5 mg tablet 0.5 mg PO BID metformin 500 mg tablet extended release 24 hr 1,000 mg PO BID Changed spironolactone 100 mg tablet 100 mg PO DAILY 30 Days Qty: 60 3RF Rx Instructions: Take with food. prazosin 5 mg capsule 5 mg PO HS Qty: 30 0RF Discontinued sulfamethoxazole-trimethoprim [Bactrim DS] 800-160 mg tablet 1 tab PO BID 14 Days Qty: 28 1RF Rx Instructions: STARTED 04/07/22 FOR 14 DAYS. losartan 50 mg tablet 50 mg PO DAILY flurbiprofen 100 mg tablet 50 mg PO BID Discharge Orders: Discharge Order (Routine); Ordered 04/24/22 Ordered By: Skip Patterson/Other Patient Handouts: Managing Type 2 Diabetes, [facility] for Diabetes Admission Data Admit Date/Time: 04/17/22 22:57 Attending Provider: Skip Gunter Admit Provider: Cally Beck Primary Care Provider: Ethan Karimi Other Providers: Cally Beck ; Justen Vaughn ; Licha Beltran ; Ga Christy Coding Level of Care Code D/C DAY MANAGEMENT >30 MINS Diagnoses Hyperkalemia E87.5 Shoulder pain, bilateral M25.511; M25.512 Diverticulitis K57.92 Hidradenitis suppurativa L73.2 Obstructive sleep apnea G47.33 Anxiety and depression F41.9; F32.A Asthma J45.20 Asthma complication type: uncomplicated Asthma persistence: intermittent Asthma severity: mild Hypertension I10 Hypertension type: unspecified Hyperlipidemia E78.5 GERD (gastroesophageal reflux disease) K21.9 Restless legs syndrome G25.81 Hypothyroidism E03.9 Diabetes mellitus type 2 with complications E11.8 Vunyqfk-Qxsyeoyyx-Hiqjn syndrome Q87.2 Hypercalcemia E83.52 Anemia D64.9 Chronic constipation K59.09 Morbid obesity E66.01
== END 2022-04-24 15:12 | disposition home or self-care (01) | DRG 641 ==
LOC: ED 16:47 → SUATTDRO 22:57 → 2N 22:57

== ENCOUNTER 2024-01-23 18:36 | Observation (INO) ==
[2024-01-23] MEDS: ADENOSINE IV SOLN 3 MG/ML 2 ML VIAL IV STA (19:00)
[2024-01-23] MEDS: ADENOSINE IV SOLN 3 MG/ML 2 ML VIAL IV ONE (19:02)
[2024-01-23 19:12] LABS: Basophils # (auto) 0.05 K/uL (0.00-0.20); Basophils % (auto) 0.4 %; Eosinophils # (auto) 0.37 K/uL (0.00-0.50); Eosinophils % (auto) 2.8 %; Hemoglobin 11.1 g/dl (12.0-16.0); Immature Granulocytes # (auto) 0.04 K/uL (0.01-0.20); Immature Granulocytes % (auto) 0.3 %; Lymphocytes # (auto) 0.89 K/uL (1.20-3.40); Lymphocytes % (auto) 6.8 %; Mean Corpuscular Hemoglobin 27.1 pg (25.0-34.0); Mean Corpuscular Hgb Conc 30.8 g/dL (32.0-36.0); Mean Corpuscular Volume 87.8 fL (80.0-100.0); Mean Platelet Volume 10.2 fL (9.4-12.4); Monocytes # (auto) 0.85 K/uL (0.11-0.59); Monocytes % (auto) 6.5 %; Neutrophils # (auto) 10.92 K/uL (1.40-6.50); Neutrophils % (auto) 83.2 %; Platelet Count 240 K/uL (130-400); RDW Coefficient of Variation 14.8 % (11.5-14.5); RDW Standard Deviation 47.7 fL (36.4-46.3); White Blood Count 13.12 K/ul (4.8-10.8)
[2024-01-23 19:13] LABS: iSTAT Creatinine 0.9 mg/dl (0.6-1.3); iSTAT Hemoglobin 12.2 g/dl (12.0-16.0); iSTAT Ionized Calcium 1.17 mmol/l (1.12-1.32); iSTAT Potassium 4.4 mmol/L (3.3-5.0)
--- NOTE | 2024-01-23 19:25 | Emergency Department Note ---
Impression & Plan SVT (supraventricular tachycardia), Hypomagnesemia, Chest pain ED Provider Note Provider: Heladio Farfan MD DATE OF SERVICE: 01/23/2024 CHIEF COMPLAINT: Chest pain pressure HISTORY OF PRESENT ILLNESS: Patient is a 63-year-old female history of pericarditis, hypertension, GERD presenting here today onset around noon of chest pressure. Denies palpitations. Feeling bit short of breath. No syncope. Has some chronic pain around her right collarbone. Did have an episode of pericarditis seen by Dr. Cowan previously. No longer on metoprolol for at least several months. Does take Plavix every day but not aspirin due to history of nosebleeds. No falls or trauma. No significant abdominal pain. Denies a history of significant cardiac arrhythmia to her knowledge. Does states she has a bad right shoulder. Is going to PT for this. PAST MEDICAL HISTORY: As noted above MEDICATIONS: Reviewed home medications SOCIAL HISTORY: Non-smoker PHYSICAL EXAM: GENERAL: alert and oriented appears uncomfortable on stretcher Head: normocephalic and atraumatic EYES: No injection, discharge or icterus. EOMI. NECK: Trachea midline. ENT: Mucous membranes pink and moist. LUNGS: Airway patent. No retractions. Breath sounds clear but somewhat tachypneic HEART: Regular very tachycardic rate and rhythm. Some slight right collarbone tenderness which patient reports chronic ABDOMEN: Soft and non-tender, without guarding or rebound. SKIN: Acyanotic, warm, dry with some cutaneous purplish to pink to skin discoloration patches on the right abdomen back and right lower leg chronic according the patient. EXTREMITIES: Without tenderness or bony deformity with trace bilateral edema NEUROLOGICAL: No focal deficits. No aphasia. No facial droop or slurred speech. EKG: Initial EKG read 172 bpm appears to be SVT without clear acute ST segment elevation or depression with a QTc of 453. EK bpm sinus tachycardia. No ST segment elevation or depression with a QTc of 436. CONTINUOUS CARDIAC MONITORING: was ordered and showed a heart rate of 170s-100s bpm in SVT to normal sinus rhythm/sinus tachycardia Patient's laboratory studies and imaging reviewed. Differential includes Cardiac ischemia, aortic dissection, pulmonary embolism, pneumothorax, pneumonia, pericarditis, myocarditis, esophageal rupture, GERD, cholecystitis, pancreatitis, musculoskeletal, as well as other pathologies. IMPRESSION/MEDICAL DECISION MAKING: Not hypoxic. Call from triage that the patient significantly tachycardic. She does appear short of breath and quite fatigued and unwell appearing upon initial evaluation. Review of initial EKG shows evidence of what appears to be SVT. Appears fairly regular. No STEMI. Does feel short of breath. Brought to room A1. Discussed with patient and IV access obtained and given 6 programs of adenosine IV push. Patient did have improvement in heart rate slowed and reverted to what appears to be a sinus tachycardia. Patient's chest pressure symptoms have been proved but not totally resolved. States she used to be on Toprol but not currently. Blood work here with minimal anemia that is chronic. Unclear slight leukocytosis of 13. Electrolytes and TSH checked as well to look for significant abnormalities. Troponin sent. Has had symptoms since around noon. 1 view chest x-ray obtained as well to exclude pneumonia or pneumothorax. Low suspicion this represents PE. Patient states she has an allergy and does not take aspirin but is on Plavix. No severe electrolyte abnormalities signs of thyroid dysfunction. Very slightly low magnesium 1.4 and will give some IV repletion. Troponin minimally elevated at 17.3. On reevaluation the patient's pain is improving some but will recommend that we observe her to ensure her rhythm stays in sinus and that her troponin is flattened. Additionally receiving magnesium replacement hopefully this will keep her out of SVT. Discussed with the hospitalist team. Patient in agreement. CTA of the chest completed to exclude PE and this was negative. DIAGNOSIS: SVT, chest pain DISPOSITION: Hospitalist will evaluate Patient was agreeable with this plan. Critical Care I have personally spent 35 minutes of critical care time in the direct management of this patient. This includes bedside care, interpretation of diagnostic studies, and testing, discussion with consultants, patient, and other required patient management activities. These 35 minutes is in excess of all separately billable procedures. Past Med/Surg History Medical History (Updated 01/24/24 @ 01:09 by Heladio Farfan M.D.) History of recent fall 2 falls since Oct 2023 - most recent Nov 2023 - no med eval for/no known injuries. Pericarditis ? official dx of 2021 - eval with Dr. Cowan. Does not follow with cardiology currently/pt told heart function was fine and cleared Oct 2022. Hives stress hives since Sep 2023 - ongoing / no worsening, comes and goes/benadryl nightly. Family history of reaction to anesthesia sister n/v. brother - heart stopped. had to do heart massage. mom n/v, hard to get awake. History of anesthesia reaction sometimes slow to wake up. Restless leg syndrome High cholesterol Sciatica Type 2 diabetes mellitus Morbid obesity with BMI of 40.0-44.9, adult Food intolerance Voice hoarseness Allergy status to unspecified drugs, medicaments and biological substances current under allergy testing due to multiple allergies. Dr. Rodriguez. Multiple drug allergies Seasonal rhinitis Low magnesium level Hypercalcemia Shoulder pain, bilateral recent ed visit 12/23/23 back/chest area, left arm shoulder to elbow. [facility]. unknown etiology. Fbjvqli-Dkwkanudx-Auqcx syndrome Nausea & vomiting Hypomagnesemia Diverticulitis Hidradenitis suppurativa Chronic kidney disease, stage 3 Metabolic syndrome Vitamin D deficiency Generalized muscle weakness History of COVID-19 last 09/2021--symptoms have resolved most recent Sep week before 2022. Full body tremors, weak arms, legs, tired, loss of appetite/loss of taste and smell, nausea , memory problems. ongoing fatigue and memory problems. 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 Degenerative disc disease Deep vein thrombosis reason for plavix; 25 years ago RLE Enlarged heart following with Dr. Cowan On home oxygen therapy 4L via CPAP at night Thyroid nodule monitors Generalized anxiety disorder with panic attacks Diabetic peripheral neuropathy associated with type 2 diabetes mellitus Sleep apnea cpap with 4L of oxygen at HS Surgical History History of detached retina repair Status post epidural steroid injection Status post trigger finger release History of colonoscopy with polypectomy History of esophagogastroduodenoscopy (EGD) History of umbilical hernia repair History of tooth extraction History of bilateral cataract extraction H/O ligation of vein Family History Aunt Breast cancer Uncle Family hx of colon cancer Colorectal cancer Mother Diabetes Family history of diabetes mellitus Heart disease Family history of reaction to anesthesia Hypertension Stroke Father Prostate cancer Cancer Grandfather (Maternal) Myocardial infarction Sister Diabetes Family history of diabetes mellitus Family history of reaction to anesthesia Hypertension Family/Other Family hx of colon cancer Brother Diabetes Family history of reaction to anesthesia Denies family history of Ovarian cancer Uterine cancer Social History Smoking Status: Never smoker Second Hand Exposure: No; Do You Dip or Chew Tobacco: No; Hx Alcohol Use: Yes Alcohol type: wine Hx Substance Use: No Preferred Language: Italian Communication Ability: Effective Visual Impairment: No Limitations Hearing Ability: Normal Bell Maker Required: No Beliefs That Will Affect Care: None marital status: Single Current Living Situation: Alone Current Living Situation Comment: has caregivers that come in current occupational status: disabled How many Children do You have: 0 Feels Safe at Home: Yes Safety Concerns: Feels Safe At This Time Diet: diabetic during the past year weight has: decreased > 10 lbs Seatbelt Use: always Sunscreen Use: Yes Assistive Devices: CPAP, Glasses, Oxygen - at Night and Walker Allergies Allergies Allergy/AdvReac Type Severity Reaction Status Date / Time adhesive Allergy Unknown "eats my Verified 01/18/24 16:25 skin" Aminoglycosides Allergy Unknown Hives Verified 01/18/24 16:25 azithromycin Allergy Unknown Hives Verified 01/18/24 16:25 bacitracin Allergy Unknown RASH Verified 01/18/24 16:25 Cephalosporins Allergy Unknown Hives Verified 01/18/24 16:25 ciprofloxacin Allergy Unknown EYE Verified 01/18/24 16:25 SWELLING, "burned my eyelids" erythromycin base Allergy Unknown HIVES Verified 01/18/24 16:25 hydroxyzine Allergy Unknown PT DOESN'T Verified 01/18/24 16:25 REMEMBER REACTION minocycline Allergy Unknown HIVES Verified 01/18/24 16:25 mupirocin Allergy Unknown RASH Verified 01/18/24 16:25 neomycin Allergy Unknown RASH Verified 01/18/24 16:25 polymyxin B Allergy Unknown RASH Verified 01/18/24 16:25 Quinolones Allergy Unknown Hives Verified 01/18/24 16:25 tetracycline Allergy Unknown HIVES Verified 01/18/24 16:25 topiramate Allergy Unknown SOB,DIZZINE Verified 01/18/24 16:25 SS duloxetine AdvReac Intermediate slurred Verified 01/18/24 16:25 speech/memory loss/ "like I was drunk" aspirin AdvReac Unknown NOSEBLEEDS- Verified 01/18/24 16:25 CAN TAKE IBUPROFEN Home Meds Home Medications Medication Instructions Recorded Confirmed blood-glucose meter,continuous 06/17/21 01/18/24 (Dexcom G6 Superintendent [employer] Managing) blood-glucose sensor (Dexcom G6 06/17/21 01/18/24 Sensor device) blood-glucose transmitter (Dexcom 06/17/21 01/18/24 G6 Transmitter device) amitriptyline 25 mg tablet 25 mg PO HS 01/06/22 01/23/24 coQ10 (ubiquinol) 100 mg capsule 200 mg PO QAM 10/30/22 01/23/24 (CoQmax Ubiquinol) cyanocobalamin (vitamin B-12) 1,000 mcg PO QAM 10/30/22 01/23/24 1,000 mcg capsule vitamin E (dl, acetate) 450 mg 450 mg PO QAM 10/30/22 01/23/24 (1,000 unit) capsule clonazepam 0.5 mg tablet 0.5 mg PO HS 11/04/22 01/23/24 vortioxetine 20 mg tablet 20 mg PO BID 05/10/23 01/23/24 (Trintellix) ascorbic acid (vitamin C) 1,000 mg 1 g PO BID 09/13/23 01/23/24 tablet (Vitamin C) cholecalciferol (vitamin D3) 50 50 mcg PO QAM 09/13/23 01/23/24 mcg (2,000 unit) capsule diphenhydramine HCl 50 mg tablet 50 mg PO 09/13/23 01/23/24 magnesium chloride 64 mg 64 mg PO QAM 09/13/23 01/23/24 (magnesium chloride) tablet ropinirole 2 mg tablet 2 mg PO HS 09/13/23 01/23/24 aripiprazole 20 mg tablet (Abilify) 40 mg PO QAM 10/25/23 01/23/24 gabapentin 400 mg capsule 800 mg PO TID 11/11/23 01/23/24 amoxicillin 875 mg-potassium 1 tab PO BID 12/24/23 01/23/24 clavulanate 125 mg tablet doxycycline hyclate 100 mg tablet 0 mg PO UD 12/24/23 01/23/24 fluticasone propionate 45 1 puff inhalation DAILY PRN sob 12/24/23 01/23/24 mcg-salmeterol 21 mcg/actuation and wheezing HFA inhaler (Advair HFA) insulin lispro 100 unit/mL 18 unit subcut TIDM 12/24/23 01/23/24 subcutaneous pen (Humalog KwikPen (U-100) Insulin) infliximab-axxq 100 mg intravenous 100 mg IV MONTHLY 01/18/24 01/23/24 solution (Avsola) prednisolone acetate 1 % eye 1 drp ophthalmic (eye) QID 01/18/24 01/23/24 drops,suspension quetiapine 300 mg tablet 300 mg PO HS 01/23/24 01/23/24 Previous Rx's Medication Instructions Recorded Incentive Spirometer #1 ea 03/14/21 hydrocortisone 2.5 % topical 1 applic topical BID PRN skin 05/06/22 ointment irritation #80 grams blood sugar diagnostic (OneTouch #300 ea 06/15/22 Verio test strips) blood-glucose meter (OneTouch #1 ea 06/15/22 Verio Meter) lancets 30 gauge (OneTouch Delica #300 ea 06/15/22 Lancets) clopidogrel 75 mg tablet 75 mg PO HS #30 tabs 02/05/23 dexlansoprazole 60 mg 60 mg PO QAM #30 caps 02/05/23 capsule,biphase delayed release (Dexilant) famotidine 40 mg tablet 40 mg PO BID #60 tabs 02/05/23 albuterol sulfate 90 mcg/actuation 1 - 2 puff inhalation Q4H PRN 02/18/23 aerosol inhaler (Ventolin HFA) shortness of breath #8 grams levothyroxine 200 mcg tablet 200 mcg PO QAM #90 tabs 06/08/23 triamcinolone acetonide 0.1 % 1 applic topical BID #80 grams 10/11/23 topical cream pen needle, diabetic 32 gauge x #500 ea 10/25/23 1" (UltiCare Pen Needle) baclofen 10 mg tablet 10 mg PO HS jaw spasms/neuralgia 10/28/23 #30 tabs lidocaine 5 % topical patch 1 patch topical DAILY PRN pain #15 12/23/23 ea insulin glargine 100 unit/mL (3 44 unit (0.44 mL) subcut HS #45 mL 12/27/23 mL) subcutaneous pen (Lantus Solostar U-100 Insulin) metformin 500 mg tablet,extended 1,000 mg (2 x 500 mg) PO BID 90 12/27/23 release 24 hr days #360 tabs atorvastatin 80 mg tablet 80 mg PO HS #90 tabs 01/06/24 exenatide microspheres 2 mg/0.85 2 mg (0.85 mL) subcut Q7D #3.4 mL 01/07/24 mL subcutaneous auto-injector (BydureCarweez BCise) Results & Data (ED) Vital Signs Vital Signs - 24 hr 01/23/24 18:38 01/23/24 18:52 01/23/24 19:03 Temperature 36.5 C Temperature Source Temporal Artery Scan Pulse Rate 108 H 169 H 102 H Pulse Rate [Apical] Pulse Rate from SpO2 Sensor Respiratory Rate 26 H 22 Respiratory Effort / Characteristics Non-Labored Spontaneous Respiratory Depth Normal Respiratory Pattern Blood Pressure 123/63 Blood Pressure Mean 83 Pulse Oximetry 99 92 Oxygen Delivery Method Room Air Room Air Oxygen Flow Rate Sepsis Recent Fever Within 48 Hours No Sepsis New/Unexplained Change in Mental Status No Sepsis Action Taken by Nursing No Action Required Oxygen Flow Rate - Titration 01/23/24 19:04 01/23/24 19:05 01/23/24 19:06 Temperature Temperature Source Pulse Rate 103 H 103 H Pulse Rate [Apical] Pulse Rate from SpO2 Sensor Respiratory Rate 26 H Respiratory Effort / Characteristics Respiratory Depth Respiratory Pattern Blood Pressure Blood Pressure Mean Pulse Oximetry 89 L Oxygen Delivery Method Room Air Room Air Oxygen Flow Rate 2 Sepsis Recent Fever Within 48 Hours Sepsis New/Unexplained Change in Mental Status Sepsis Action Taken by Nursing Oxygen Flow Rate - Titration 91 01/23/24 19:07 01/23/24 19:07 01/23/24 19:15 Temperature Temperature Source Pulse Rate 99 H Pulse Rate [Apical] 101 H Pulse Rate from SpO2 Sensor 100 H Respiratory Rate 24 25 H Respiratory Effort / Characteristics Non-Labored Spontaneous Respiratory Depth Normal Respiratory Pattern Regular Blood Pressure 139/51 L Blood Pressure Mean 80 Pulse Oximetry 90 91 96 Oxygen Delivery Method Nasal Cannula Nasal Cannula Nasal Cannula Oxygen Flow Rate 2 2 2 Sepsis Recent Fever Within 48 Hours Sepsis New/Unexplained Change in Mental Status Sepsis Action Taken by Nursing Oxygen Flow Rate - Titration 01/23/24 19:30 01/23/24 20:00 Temperature Temperature Source Pulse Rate 101 H 102 H Pulse Rate [Apical] Pulse Rate from SpO2 Sensor 101 H Respiratory Rate 30 H 36 H Respiratory Effort / Characteristics Respiratory Depth Respiratory Pattern Blood Pressure 147/78 H Blood Pressure Mean 101 Pulse Oximetry 95 94 Oxygen Delivery Method Room Air Nasal Cannula Oxygen Flow Rate 2 Sepsis Recent Fever Within 48 Hours Sepsis New/Unexplained Change in Mental Status Sepsis Action Taken by Nursing Oxygen Flow Rate - Titration Laboratory Data 01/23/24 18:57 01/23/24 18:57 Lab Results 01/23/24 01/23/24 01/23/24 Range/Units 18:57 19:01 19:05 WBC 13.12 H (4.8-10.8) K/ul RBC 4.10 L (4.20-5.40) M/uL Hgb 11.1 L (12.0-16.0) g/dl POC Hgb 12.2 (12.0-16.0) g/dl Hct 36.0 L (37.0-47.0) % POC Hct 36 L (37-47) % MCV 87.8 (80.0-100.0) fL MCH 27.1 (25.0-34.0) pg MCHC 30.8 L (32.0-36.0) g/dL RDW Std Deviation 47.7 H (36.4-46.3) fL RDW Coeff of Aleah 14.8 H (11.5-14.5) % Plt Count 240 (130-400) K/uL MPV 10.2 (9.4-12.4) fL Immature Gran % (Auto) 0.3 % Neut % (Auto) 83.2 % Lymph % (Auto) 6.8 % [place] % (Auto) 6.5 % Eos % (Auto) 2.8 % Baso % (Auto) 0.4 % Neut # (Auto) 10.92 H (1.40-6.50) K/uL Lymph # (Auto) 0.89 L (1.20-3.40) K/uL [place] # (Auto) 0.85 H (0.11-0.59) K/uL Eos # (Auto) 0.37 (0.00-0.50) K/uL Baso # (Auto) 0.05 (0.00-0.20) K/uL Immature Gran # (Auto) 0.04 (0.01-0.20) K/uL PT 11.8 (9.0-12.0) Seconds INR 1.1 (0.9-1.1) APTT 27 (21-31) Seconds PTT Ratio 1.0 POC Sodium 137 (135-144) mmol/L Sodium 135 L (136-145) mmol/L POC Potassium 4.4 (3.3-5.0) mmol/L Potassium 4.5 (3.5-5.1) mmol/L POC Chloride 98 L (101-112) mmol/L Chloride 99 (98-107) mmol/L Carbon Dioxide 27 (21-32) mmol/L POC Total CO2 29 (24-31) mmol/L Anion Gap 9 (3-11) POC Anion Gap 16.0 (16-25) mmol/L POC BUN 14 (7-18) mg/dl BUN 14 (6-23) mg/dl Creatinine 0.82 (0.6-1.2) mg/dl POC Creatinine 0.9 (0.6-1.3) mg/dl Est Cr Clr Drug Dosing 85.3 ml/min Est GFR ( Amer) 87.0 ml/min Est GFR (Non-Af Amer) 75.1 ml/min BUN/Creatinine Ratio 17.1 (10-20) Glucose 227 H (70-99(Fasting)) mg/dl POC Glucose (other) 217 H (70-99) mg/dl Calcium 9.0 (8.6-10.3) mg/dl POC Ioniz Calcium Han 1.17 (1.12-1.32) mmol/l Magnesium 1.4 L (1.7-2.4) mg/dl Total Bilirubin 0.4 (0.2-1.0) mg/dl AST 12 L (13-39) U/L ALT 10 (7-52) U/L Alkaline Phosphatase 81 (34-104) U/L Troponin I High Sens 17.3 H (0-14) pg/ml Total Protein 7.7 (6.0-8.3) gm/dl Albumin 3.5 (3.4-5.0) gm/dl Globulin 4.2 H (2.5-4.0) gm/dl Albumin/Globulin Ratio 0.8 L (0.9-2) Lipase 18 (11-82) U/L TSH 0.973 (0.300-4.500) uIu/ml SARS-CoV-2, RNA, NAAT NEGATIVE (NEGATIVE) Administered Medications Gabapentin (Gabapentin 400 Mg Cap) 800 mg PO TID SHAMIKA Stop: 02/22/24 22:25 Last Admin: 01/23/24 23:38 Dose: 800 mg Documented By: JOE Insulin Glargine (Lantus Per Unit Charge) 30 units SQ HS SHAMIKA Stop: 02/22/24 22:25 Last Admin: 01/23/24 23:37 Dose: 30 units Documented By: MMG Co-signed By: MIRIAM Magnesium Chloride (Magnesium Chloride W/Calcium 64mg Delayed Rel Tab) 64 mg PO BID SHAMIKA Stop: 02/22/24 22:25 Last Admin: 01/23/24 23:38 Dose: 64 mg Documented By: MMMely Discontinued Medications Adenosine (Adenosine Iv Soln 3 Mg/Ml 2 Ml Vial) Confirm Administered Dose 12 mg IV .STK-MED ONE Stop: 01/23/24 18:55 Last Admin: 01/23/24 19:02 Dose: Not Given Documented By: PALOMO Adenosine (Adenosine Iv Soln 3 Mg/Ml 2 Ml Vial) 6 mg IV NOW STA Stop: 01/23/24 18:57 Last Admin: 01/23/24 19:00 Dose: 6 mg Documented By: PALOMO Magnesium Sulfate/Dextrose (Magnesium Sulfate / D5w) 1 gm in 100 mls @ 200 mls/hr IV Q30M SHAMIKA Stop: 01/23/24 20:59 Last Infusion: 01/23/24 21:47 Dose: Infused [place]ed [place] [facility] [place]: 01/23/24 20:57 Dose: 200 mls/hr Documented By: [facility] [place]fusion: 01/23/24 20:56 Dose: Infused Documented By: [facility] Admin: 01/23/24 20:18 Dose: 200 mls/hr Documented By: [facility] Ioversol (Optiray 320 125ml) 116 ml IV ONCE ONE Stop: 01/23/24 22:03 Last Admin: 01/23/24 22:02 Dose: 116 ml Documented By: EDK Imaging Data Radiologist's Impression: Chest X-Ray 01/23/24 18:43 XR chest 1V portable CLINICAL HISTORY: Chest pain, nonspecific COMPARISON STUDY: Chest CT July 06, 2022. Chest radiograph December 23, 2023. FINDINGS: Lung volumes are mildly diminished. There is no pneumothorax or pleural effusion. Mild interstitial thickening is present. No definite consolidation. Mild cardiomegaly is unchanged. There are calcified mediastinal lymph nodes. IMPRESSION: Stable cardiomegaly. Interstitial prominence. This may be related to a hypoventilatory study however mild pulmonary edema could appear similar. ACT 112: Negative or not required by law. Electronically signed by: Kennedy Montoya M.D. 01/23/2024 8:07 PM Chest CTA 01/23/24 20:28 Exam(s): CTA CHEST IV Amt: OPTIRAY [id number] EXAM: CT Angiography Chest With Intravenous Contrast CLINICAL HISTORY: Pain and tachycardia. TECHNIQUE: Axial computed tomographic angiography images of the chest with intravenous contrast. MIPS images were created and reviewed. CTDI is 28 mGy and DLP is 860 mGy-cm. Automated exposure control was utilized for the study. A dose lowering technique was utilized adhering to the principles of ALARA. MIP reconstructed images were created and reviewed. COMPARISON: Chest radiograph 01/23/2024. FINDINGS: Pulmonary arteries: Prominence of pulmonary arteries is concerning for pulmonary hypertension. No pulmonary embolus. Aorta: Mild atherosclerosis. No thoracic aortic aneurysm. Lungs: Interseptal thickening could relate to atelectasis and/or pulmonary edema. No mass. Pleural space: Trace left pleural effusion. No pneumothorax. Heart: Unremarkable. No cardiomegaly. No significant pericardial effusion. No evidence of RV dysfunction. Thyroid: Enlarged heterogeneous thyroid with an underlying 3.2 cm thyroid nodule. Bones/joints: There are degenerative changes of the spine. No acute fracture. Soft tissues: Unremarkable. Lymph nodes: Unremarkable. No enlarged lymph nodes. IMPRESSION: 1. No pulmonary embolus. 2. Interseptal thickening could relate to atelectasis and/or pulmonary edema. 3. Prominence of pulmonary arteries is concerning for pulmonary hypertension. 4. Trace left pleural effusion. 5. Enlarged heterogeneous thyroid with an underlying 3.2 cm thyroid nodule. Recommend further evaluation with dedicated thyroid ultrasound on a nonemergent basis. Electronically signed by: Patsy Wong MD 01/23/24 22:31 PM Discharge Plan Visit Data Chief Complaint: Chest Pain Stated Complaint: CHEST PAIN,SOB ED Provider: Heladio Farfan Discharge Problem: SVT (supraventricular tachycardia), Hypomagnesemia, Chest pain Patient Disposition: Admitted As Inpatient Discharge Instructions Interventions: ED Discharge Assessment Last Done: 01/23/24 22:08
[2024-01-23 19:31] LABS: Albumin Globulin Ratio 0.8 (0.9-2); Albumin Level 3.5 gm/dl (3.4-5.0); BUN Creatinine Ratio 17.1 (10-20); Bilirubin,Total 0.4 mg/dl (0.2-1.0); Creatinine Clr Calc Pharmacy 85.3 ml/min; Est GFR (Non-African American) 75.1 ml/min; Globulin 4.2 gm/dl (2.5-4.0); Magnesium 1.4 mg/dl (1.7-2.4); Potassium 4.5 mmol/L (3.5-5.1); Total Protein 7.7 gm/dl (6.0-8.3)
[2024-01-23 19:34] LABS: Troponin I High Sensitivity 17.3 pg/ml (0-14)
[2024-01-23 19:38] LABS: INR 1.1 (0.9-1.1); Partial Thromboplastin Time 27 Seconds (21-31); Prothrombin Time 11.8 Seconds (9.0-12.0)
[2024-01-23 19:44] LABS: Thyroid Stimulating Hormone 0.973 uIu/ml (0.300-4.500)
--- NOTE | 2024-01-23 20:09 | XRay Report ---
XR chest 1V portable CLINICAL HISTORY: Chest pain, nonspecific COMPARISON STUDY: Chest CT July 06, 2022. Chest radiograph December 23, 2023. FINDINGS: Lung volumes are mildly diminished. There is no pneumothorax or pleural effusion. Mild inte rstitial thickening is present. No definite consolidation. Mild cardiomegaly is unchanged. There are calcified mediastinal lymph nodes. IMPRESSION: Stable cardiomegaly. Interstitial prominence. This may be related to a hypoventilatory s tudy however mild pulmonary edema could appear similar. ACT 112: Negative or not required by law. Electronically signed by: Kennedy Montoya M.D. 01/23/2024 8:07 PM
[2024-01-23] MEDS: MAGNESIUM SULFATE / D5W 1 GM/100 ML BAG IV SCH (20:18)
--- NOTE | 2024-01-23 21:15 | History & Physical Report ---
Date of Service January 23, 2024 Assessment & Plan (1) Chest pressure: (2) SVT (supraventricular tachycardia): (3) History of pericarditis: (4) History of DVT (deep vein thrombosis): (5) Obstructive sleep apnea: (6) Anxiety and depression: (7) Hypothyroidism: (8) Restless legs syndrome: (9) Hypertension: (10) Asthma: (11) Thyroid nodule greater than or equal to 1.5 cm in diameter incidentally noted on imaging study: Plan Supraventricular tachycardia/chest pressure- The patient will be admitted to telemetry for serial cardiac enzymes, serial EKG's, cardiac rhythm monitoring and a 2-D echocardiogram with Dopplers. Most recent echo from 07/06/2022 with ejection fraction 55-60% Heart rate found to be in the 170s in the ED She did respond to adenosine 6 mg IV with conversion to heart rate in the 90s to 100s Initial troponin 17.3, likely secondary to increased heart rate, will be followed serially Patient has been on metoprolol in the past, but this was discontinued due to postural dizziness If heart rate is persistently elevated, will do a trial of Cardizem She is on a number of psychiatric medications which could have the potential triggering increased heart rate Magnesium level 1.4 was repleted with 2 g of mag sulfate IV, and is likely stimulus for PSVT Consult cardiology Diabetes mellitus- Hold metformin Reduce glargine from 44 to 30 units subcu daily while in hospital Placed on Accu-Cheks with NovoLog SSI Asthma- Continue usual inhalers Anxiety and depression- For now we will continue amitriptyline, review problems all, clonazepam, quetiapine, vortioxetine and ropinirole Thyroid nodule 3.2 cm in size- Recommendation is to perform a thyroid ultrasound, could be done as outpatient Continue levothyroxine History of Present Illness Chief Complaint: The patient presented to the emergency department with complaint of chest pressure that began around noon today, and upon arrival in the emergency department, was found to be in SVT with a heart rate of 172. Primary Care Provider: Ethan Karimi MD The patient is a 63-year-old female with a past medical history including gastroparesis, obesity, pericarditis, B12 deficiency, vitamin D deficiency, diverticulitis, gastropathy, history of DVT, VERA, anxiety and depression, diabetes mellitus, GERD, hyperlipidemia and hypertension. She presented to the emergency department with symptoms of chest pressure, and was found to have an SVT 172. She was given adenosine 6 mg IV by the ED, and converted to normal sinus rhythm in the upper 90s, with resolution of her chest pressure symptoms. She was found to have magnesium level 1.4, did receive 2 g of mag sulfate IV from the ED Allergies Allergy/AdvReac Type Severity Reaction Status Date / Time adhesive Allergy Unknown "eats my Verified 01/18/24 16:25 skin" Aminoglycosides Allergy Unknown Hives Verified 01/18/24 16:25 azithromycin Allergy Unknown Hives Verified 01/18/24 16:25 bacitracin Allergy Unknown RASH Verified 01/18/24 16:25 Cephalosporins Allergy Unknown Hives Verified 01/18/24 16:25 ciprofloxacin Allergy Unknown EYE Verified 01/18/24 16:25 SWELLING, "burned my eyelids" erythromycin base Allergy Unknown HIVES Verified 01/18/24 16:25 hydroxyzine Allergy Unknown PT DOESN'T Verified 01/18/24 16:25 REMEMBER REACTION minocycline Allergy Unknown HIVES Verified 01/18/24 16:25 mupirocin Allergy Unknown RASH Verified 01/18/24 16:25 neomycin Allergy Unknown RASH Verified 01/18/24 16:25 polymyxin B Allergy Unknown RASH Verified 01/18/24 16:25 Quinolones Allergy Unknown Hives Verified 01/18/24 16:25 tetracycline Allergy Unknown HIVES Verified 01/18/24 16:25 topiramate Allergy Unknown SOB,DIZZINE Verified 01/18/24 16:25 SS duloxetine AdvReac Intermediate slurred Verified 01/18/24 16:25 speech/memory loss/ "like I was drunk" aspirin AdvReac Unknown NOSEBLEEDS- Verified 01/18/24 16:25 CAN TAKE IBUPROFEN Home Medications Medication Instructions Recorded Confirmed Type Incentive Spirometer #1 ea 03/14/21 01/18/24 Rx blood-glucose meter,continuous 06/17/21 01/18/24 History ([facility] G6 Licensed [facility] Family Therapist) blood-glucose sensor ([facility] G6 06/17/21 01/18/24 History Sensor device) blood-glucose transmitter (Dexcom 06/17/21 01/18/24 History G6 Transmitter device) amitriptyline 25 mg tablet 25 mg PO HS 01/06/22 01/23/24 History hydrocortisone 2.5 % topical 1 applic topical BID PRN skin 05/06/22 01/23/24 Rx ointment irritation #80 grams blood sugar diagnostic (OneTouch #300 ea 06/15/22 01/18/24 Rx Verio test strips) blood-glucose meter (OneTouch #1 ea 06/15/22 01/18/24 Rx Verio Meter) lancets 30 gauge (OneTouch Delica #300 ea 06/15/22 01/18/24 Rx Lancets) coQ10 (ubiquinol) 100 mg capsule 200 mg PO QAM 10/30/22 01/23/24 History (CoQmax Ubiquinol) cyanocobalamin (vitamin B-12) 1,000 mcg PO QAM 10/30/22 01/23/24 History 1,000 mcg capsule vitamin E (dl, acetate) 450 mg 450 mg PO QAM 10/30/22 01/23/24 History (1,000 unit) capsule clonazepam 0.5 mg tablet 0.5 mg PO HS 11/04/22 01/23/24 History clopidogrel 75 mg tablet 75 mg PO HS #30 tabs 02/05/23 01/23/24 Rx dexlansoprazole 60 mg 60 mg PO QAM #30 caps 02/05/23 01/23/24 Rx capsule,biphase delayed release (Dexilant) famotidine 40 mg tablet 40 mg PO BID #60 tabs 02/05/23 01/23/24 Rx albuterol sulfate 90 mcg/actuation 1 - 2 puff inhalation Q4H PRN 02/18/23 01/23/24 Rx aerosol inhaler (Ventolin HFA) shortness of breath #8 grams vortioxetine 20 mg tablet 20 mg PO BID 05/10/23 01/23/24 History (Trintellix) levothyroxine 200 mcg tablet 200 mcg PO QAM #90 tabs 06/08/23 01/23/24 Rx ascorbic acid (vitamin C) 1,000 mg 1 g PO BID 09/13/23 01/23/24 History tablet (Vitamin C) cholecalciferol (vitamin D3) 50 50 mcg PO QAM 09/13/23 01/23/24 History mcg (2,000 unit) capsule diphenhydramine HCl 50 mg tablet 50 mg PO HS 09/13/23 01/23/24 History magnesium chloride 64 mg 64 mg PO QAM 09/13/23 01/23/24 History (magnesium chloride) tablet ropinirole 2 mg tablet 2 mg PO HS 09/13/23 01/23/24 History triamcinolone acetonide 0.1 % 1 applic topical BID #80 grams 10/11/23 01/23/24 Rx topical cream aripiprazole 20 mg tablet (Abilify) 40 mg PO QAM 10/25/23 01/23/24 History pen needle, diabetic 32 gauge x #500 ea 10/25/23 01/18/24 Rx 1/4" (UltiCare Pen Needle) baclofen 10 mg tablet 10 mg PO HS jaw spasms/neuralgia 10/28/23 01/23/24 Rx #30 tabs gabapentin 400 mg capsule 800 mg PO TID 11/11/23 01/23/24 History lidocaine 5 % topical patch 1 patch topical DAILY PRN pain #15 12/23/23 01/23/24 Rx ea amoxicillin 875 mg-potassium 1 tab PO BID 12/24/23 01/23/24 History clavulanate 125 mg tablet doxycycline hyclate 100 mg tablet 0 mg PO UD 12/24/23 01/23/24 History fluticasone propionate 45 1 puff inhalation DAILY PRN sob 12/24/23 01/23/24 History mcg-salmeterol 21 mcg/actuation and wheezing HFA inhaler (Advair HFA) insulin lispro 100 unit/mL 18 unit subcut TIDM 12/24/23 01/23/24 History subcutaneous pen (Humalog KwikPen (U-100) Insulin) insulin glargine 100 unit/mL (3 44 unit (0.44 mL) subcut HS #45 mL 12/27/23 01/23/24 Rx mL) subcutaneous pen (Lantus Solostar U-100 Insulin) metformin 500 mg tablet,extended 1,000 mg (2 x 500 mg) PO BID 90 12/27/23 01/23/24 Rx release 24 hr days #360 tabs atorvastatin 80 mg tablet 80 mg PO HS #90 tabs 01/06/24 01/23/24 Rx exenatide microspheres 2 mg/0.85 2 mg (0.85 mL) subcut Q7D #3.4 mL 01/07/24 01/23/24 Rx mL subcutaneous auto-injector (Bydureon BCise) infliximab-axxq 100 mg intravenous 100 mg IV MONTHLY 01/18/24 01/23/24 History solution (Avsola) prednisolone acetate 1 % eye 1 drp ophthalmic (eye) QID 01/18/24 01/23/24 History drops,suspension quetiapine 300 mg tablet 300 mg PO HS 01/23/24 01/23/24 History Past Med/Surg History Medical History (Updated 01/24/24 @ 02:45 by Duane Kinsey MD) History of recent fall 2 falls since Oct 2023 - most recent Nov 2023 - no med eval for/no known injuries. Pericarditis ? official dx of 2021 - eval with Dr. Cowan. Does not follow with cardiology currently/pt told heart function was fine and cleared Oct 2022. Hives stress hives since Sep 2023 - ongoing / no worsening, comes and goes/benadryl nightly. Family history of reaction to anesthesia sister n/v. brother - heart stopped. had to do heart massage. mom n/v, hard to get awake. History of anesthesia reaction sometimes slow to wake up. Restless leg syndrome High cholesterol Sciatica Type 2 diabetes mellitus Morbid obesity with BMI of 40.0-44.9, adult Food intolerance Voice hoarseness Allergy status to unspecified drugs, medicaments and biological substances current under allergy testing due to multiple allergies. Dr. Rodriguez. Multiple drug allergies Seasonal rhinitis Low magnesium level Hypercalcemia Shoulder pain, bilateral recent ed visit 12/23/23 back/chest area, left arm shoulder to elbow. [facility]. unknown etiology. Qkhjtav-Vyiezeysk-Hghxo syndrome Nausea & vomiting Hypomagnesemia Diverticulitis Hidradenitis suppurativa Chronic kidney disease, stage 3 Metabolic syndrome Vitamin D deficiency Generalized muscle weakness History of COVID-19 last 09/2021--symptoms have resolved most recent Sep week before 2022. Full body tremors, weak arms, legs, tired, loss of appetite/loss of taste and smell, nausea , memory problems. ongoing fatigue and memory problems. 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 Degenerative disc disease Deep vein thrombosis reason for plavix; 25 years ago RLE Enlarged heart following with Dr. Cowan On home oxygen therapy 4L via CPAP at night Thyroid nodule monitors Generalized anxiety disorder with panic attacks Diabetic peripheral neuropathy associated with type 2 diabetes mellitus Sleep apnea cpap with 4L of oxygen at HS Surgical History History of detached retina repair Status post epidural steroid injection Status post trigger finger release History of colonoscopy with polypectomy History of esophagogastroduodenoscopy (EGD) History of umbilical hernia repair History of tooth extraction History of bilateral cataract extraction H/O ligation of vein Family History Aunt Breast cancer Uncle Family hx of colon cancer Colorectal cancer Mother Diabetes Family history of diabetes mellitus Heart disease Family history of reaction to anesthesia Hypertension Stroke Father Prostate cancer Cancer Grandfather (Maternal) Myocardial infarction Sister Diabetes Family history of diabetes mellitus Family history of reaction to anesthesia Hypertension Family/Other Family hx of colon cancer Brother Diabetes Family history of reaction to anesthesia Denies family history of Ovarian cancer Uterine cancer Social History Smoking Status: Never smoker Second Hand Exposure: No; Do You Dip or Chew Tobacco: No; Hx Alcohol Use: Yes Alcohol type: wine Hx Substance Use: No Preferred Language: Citizen Of [place] Communication Ability: Effective Visual Impairment: No Limitations Hearing Ability: Normal Gun Striper Required: No Beliefs That Will Affect Care: None marital status: Single Current Living Situation: Alone Current Living Situation Comment: has caregivers that come in current occupational status: disabled How many Children do You have: 0 Feels Safe at Home: Yes Safety Concerns: Feels Safe At This Time Diet: diabetic during the past year weight has: decreased > 10 lbs Seatbelt Use: always Sunscreen Use: Yes Assistive Devices: CPAP, Glasses, Oxygen - at Night and Walker Review of Systems Review of Systems: The patient denies cough, lower extremity swelling, sore throat, fevers, chill s, sweats, nausea, vomiting, diarrhea , constipation, abdominal pain, pelvic pain, blood in urine or stool, dysuria, urinary frequency or urgency, lightheadedness, dizziness, headache, memory loss, loss of consciousness, rash, abnormal bruising or bleeding, imbalance, focal or generalized weakness, numbness or tingling in arms or legs, generalized arthralgias or myalgias, back or neck pain, or night sweats. The review of systems is otherwise negative other than for that already noted above, and at least 10 systems have been reviewed. Physical Exam Physical Exam: The patient is awake, alert and oriented 3, well developed and well nourished, normocephalic and atraumatic, lying in bed and in no acute distress. HEENT--PERRL, EOMI, mucous membranes and oropharynx dry. Neck--supple. No JVD. No bruits. Thyroid normal, trachea midline, no adenopathy. Heart--normal S1 and S2. No murmurs, rubs or gallops. Lungs--clear bilaterally, no respiratory distress, no accessory muscle use. Abdomen--normal bowel sounds and soft. Nontender. Nondistended. Obese Extremities--No edema. Dermatologic--normal skin turgor, normal color, no abnormal lymph nodes, no rash. Neurologic--cranial nerves II through XII grossly intact. Rheumatologic--normal range of motion. Psychiatric--normal affect. Results & Data Results & Data Vital Signs (Past 12 Hours) Vital Signs Temp Pulse Pulse Resp BP Pulse Ox O2 Del Method 01/23/24 19:30 101 H 30 H 95 Room Air 01/23/24 19:15 99 H 25 H 139/51 L 96 Nasal Cannula 01/23/24 19:07 91 Nasal Cannula 01/23/24 19:07 101 H 24 90 Nasal Cannula 01/23/24 19:06 Room Air 01/23/24 19:05 103 H 26 H 89 L Room Air 01/23/24 19:04 103 H 01/23/24 19:03 102 H 22 92 Room Air 01/23/24 18:52 169 H 01/23/24 18:38 36.5 C 108 H 26 H 123/63 99 Room Air O2 Flow Rate 01/23/24 19:30 01/23/24 19:15 2 01/23/24 19:07 2 01/23/24 19:07 2 01/23/24 19:06 2 01/23/24 19:05 01/23/24 19:04 01/23/24 19:03 01/23/24 18:52 01/23/24 18:38 Laboratory Results Laboratory Results WBC 13.12 K/ul (4.8-10.8) H 01/23/24 18:57 RBC 4.10 M/uL (4.20-5.40) L 01/23/24 18:57 Hgb 11.1 g/dl (12.0-16.0) L 01/23/24 18:57 POC Hgb 12.2 g/dl (12.0-16.0) 01/23/24 19:01 Hct 36.0 % (37.0-47.0) L 01/23/24 18:57 POC Hct 36 % (37-47) L 01/23/24 19:01 MCV 87.8 fL (80.0-100.0) 01/23/24 18:57 MCH 27.1 pg (25.0-34.0) 01/23/24 18:57 MCHC 30.8 g/dL (32.0-36.0) L 01/23/24 18:57 RDW Std Deviation 47.7 fL (36.4-46.3) H 01/23/24 18:57 RDW Coeff of Aleah 14.8 % (11.5-14.5) H 01/23/24 18:57 Plt Count 240 K/uL (130-400) 01/23/24 18:57 MPV 10.2 fL (9.4-12.4) 01/23/24 18:57 Immature Gran % (Auto) 0.3 % 01/23/24 18:57 Neut % (Auto) 83.2 % 01/23/24 18:57 Lymph % (Auto) 6.8 % 01/23/24 18:57 [place] % (Auto) 6.5 % 01/23/24 18:57 Eos % (Auto) 2.8 % 01/23/24 18:57 Baso % (Auto) 0.4 % 01/23/24 18:57 Neut # (Auto) 10.92 K/uL (1.40-6.50) H 01/23/24 18:57 Lymph # (Auto) 0.89 K/uL (1.20-3.40) L 01/23/24 18:57 [place] # (Auto) 0.85 K/uL (0.11-0.59) H 01/23/24 18:57 Eos # (Auto) 0.37 K/uL (0.00-0.50) 01/23/24 18:57 Baso # (Auto) 0.05 K/uL (0.00-0.20) 01/23/24 18:57 Immature Gran # (Auto) 0.04 K/uL (0.01-0.20) 01/23/24 18:57 PT 11.8 Seconds (9.0-12.0) 01/23/24 18:57 INR 1.1 (0.9-1.1) 01/23/24 18:57 APTT 27 Seconds (21-31) 01/23/24 18:57 PTT Ratio 1.0 01/23/24 18:57 POC Sodium 137 mmol/L (135-144) 01/23/24 19:01 Sodium 135 mmol/L (136-145) L 01/23/24 18:57 POC Potassium 4.4 mmol/L (3.3-5.0) 01/23/24 19:01 Potassium 4.5 mmol/L (3.5-5.1) 01/23/24 18:57 POC Chloride 98 mmol/L (101-112) L 01/23/24 19:01 Chloride 99 mmol/L (98-107) 01/23/24 18:57 Carbon Dioxide 27 mmol/L (21-32) 01/23/24 18:57 POC Total CO2 29 mmol/L (24-31) 01/23/24 19:01 Anion Gap 9 (3-11) 01/23/24 18:57 POC Anion Gap 16.0 mmol/L (16-25) 01/23/24 19:01 POC BUN 14 mg/dl (7-18) 01/23/24 19:01 BUN 14 mg/dl (6-23) 01/23/24 18:57 Creatinine 0.82 mg/dl (0.6-1.2) 01/23/24 18:57 POC Creatinine 0.9 mg/dl (0.6-1.3) 01/23/24 19:01 Est Cr Clr Drug Dosing 85.3 ml/min 01/23/24 18:57 Est GFR ( Amer) 87.0 ml/min 01/23/24 18:57 Est GFR (Non-Af Amer) 75.1 ml/min 01/23/24 18:57 BUN/Creatinine Ratio 17.1 (10-20) 01/23/24 18:57 Glucose 227 mg/dl (70-99(Fasting)) H 01/23/24 18:57 POC Glucose 204 mg/dl (70-99) H 01/23/24 22:34 POC Glucose (other) 217 mg/dl (70-99) H 01/23/24 19:01 Calcium 9.0 mg/dl (8.6-10.3) 01/23/24 18:57 POC Ioniz Calcium Han 1.17 mmol/l (1.12-1.32) 01/23/24 19:01 Magnesium 1.4 mg/dl (1.7-2.4) L 01/23/24 18:57 Total Bilirubin 0.4 mg/dl (0.2-1.0) 01/23/24 18:57 AST 12 U/L (13-39) L 01/23/24 18:57 ALT 10 U/L (7-52) 01/23/24 18:57 Alkaline Phosphatase 81 U/L (34-104) 01/23/24 18:57 Troponin I High Sens 17.3 pg/ml (0-14) H 01/23/24 18:57 Total Protein 7.7 gm/dl (6.0-8.3) 01/23/24 18:57 Albumin 3.5 gm/dl (3.4-5.0) 01/23/24 18:57 Globulin 4.2 gm/dl (2.5-4.0) H 01/23/24 18:57 Albumin/Globulin Ratio 0.8 (0.9-2) L 01/23/24 18:57 Lipase 18 U/L (11-82) 01/23/24 18:57 TSH 0.973 uIu/ml (0.300-4.500) 01/23/24 18:57 SARS-CoV-2, RNA, NAAT NEGATIVE (NEGATIVE) 01/23/24 19:05 Impressions Chest X-Ray 01/23/24 18:43 XR chest 1V portable CLINICAL HISTORY: Chest pain, nonspecific COMPARISON STUDY: Chest CT July 06, 2022. Chest radiograph December 23, 2023. FINDINGS: Lung volumes are mildly diminished. There is no pneumothorax or pleural effusion. Mild interstitial thickening is present. No definite consolidation. Mild cardiomegaly is unchanged. There are calcified mediastinal lymph nodes. IMPRESSION: Stable cardiomegaly. Interstitial prominence. This may be related to a hypoventilatory study however mild pulmonary edema could appear similar. ACT 112: Negative or not required by law. Electronically signed by: Kennedy Montoya M.D. 01/23/2024 8:07 PM Chest CTA 01/23/24 20:28 Exam(s): CTA CHEST IV Amt: OPTIRAY [id number] EXAM: CT Angiography Chest With Intravenous Contrast CLINICAL HISTORY: Pain and tachycardia. TECHNIQUE: Axial computed tomographic angiography images of the chest with intravenous contrast. MIPS images were created and reviewed. CTDI is 28 mGy and DLP is 860 mGy-cm. Automated exposure control was utilized for the study. A dose lowering technique was utilized adhering to the principles of ALARA. MIP reconstructed images were created and reviewed. COMPARISON: Chest radiograph 01/23/2024. FINDINGS: Pulmonary arteries: Prominence of pulmonary arteries is concerning for pulmonary hypertension. No pulmonary embolus. Aorta: Mild atherosclerosis. No thoracic aortic aneurysm. Lungs: Interseptal thickening could relate to atelectasis and/or pulmonary edema. No mass. Pleural space: Trace left pleural effusion. No pneumothorax. Heart: Unremarkable. No cardiomegaly. No significant pericardial effusion. No evidence of RV dysfunction. Thyroid: Enlarged heterogeneous thyroid with an underlying 3.2 cm thyroid nodule. Bones/joints: There are degenerative changes of the spine. No acute fracture. Soft tissues: Unremarkable. Lymph nodes: Unremarkable. No enlarged lymph nodes. IMPRESSION: 1. No pulmonary embolus. 2. Interseptal thickening could relate to atelectasis and/or pulmonary edema. 3. Prominence of pulmonary arteries is concerning for pulmonary hypertension. 4. Trace left pleural effusion. 5. Enlarged heterogeneous thyroid with an underlying 3.2 cm thyroid nodule. Recommend further evaluation with dedicated thyroid ultrasound on a nonemergent basis. Electronically signed by: Patsy Wong MD 01/23/24 22:31 PM Code Status & VTE Plan Code Status Full code VTE Prophylaxis Plan VTE Prophylaxis will be ordered: Yes PG Care Time/CCT Total # of Minutes Spent Total Time Spent with Patient: Total time spent is greater than 50% in coordination of care (as documented) at patient's floor/unit and/or counseling patient: Coding Level of Care Code 50945 INT INP/OBS CARE 3/75MIN Diagnoses Chest pressure R07.89 SVT (supraventricular tachycardia) I47.10 History of pericarditis Z86.79 History of DVT (deep vein thrombosis) Z86.718 Obstructive sleep apnea G47.33 Anxiety and depression F41.9; F32.A Hypothyroidism E03.9 Restless legs syndrome G25.81 Hypertension I10 Hypertension type: unspecified Mild intermittent asthma without complication J45.20 Asthma severity: mild Asthma persistence: intermittent Asthma complication type: uncomplicated Thyroid nodule greater than or equal to 1.5 cm in diameter incidentally noted on imaging study E04.1 (9) Hypertension Hypertension type: unspecified Qualified Code(s): I10 - Essential (primary) hypertension (10) Asthma Asthma severity: mild Asthma persistence: intermittent Asthma complication type: uncomplicated Qualified Code(s): J45.20 - Mild intermittent asthma, uncomplicated
[2024-01-23] MEDS: OPTIRAY 320 125ml IV ONE (22:02)
--- NOTE | 2024-01-23 22:32 | CT Scan Report ---
Exam(s): CTA CHEST IV Amt: OPTIRAY [id number] EXAM: CT Angiography Chest With Intravenous Contrast CLINICAL HISTORY: Pain and tachycardia. TECHNIQUE: Axial computed tomographic angiography images of the chest with intravenous contrast. MIPS images were created and reviewed. CTDI is 28 mGy and DLP is 860 mGy-cm. Automated exposure control was utilized for the study. A dose lowering technique was utilized adhering to the principles of ALARA. MIP reconstructed images were created and reviewed. COMPARISON: Chest radiograph 01/23/2024. FINDINGS: Pulmonary arteries: Prominence of pulmonary arteries is concerning for pulmonary hypertension. No pulmonary embolus. Aorta: Mild atherosclerosis. No thoracic aortic aneurysm. Lungs: Interseptal thickening could relate to atelectasis and/or pulmonary edema. No mass. Pleural space: Trace left pleural effusion. No pneumothorax. Heart: Unremarkable. No cardiomegaly. No significant pericardial effusion. No evidence of RV dysfunction. Thyroid: Enlarged heterogeneous thyroid with an underlying 3.2 cm thyroid nodule. Bones/joints: There are degenerative changes of the spine. No acute fracture. Soft tissues: Unremarkable. Lymph nodes: Unremarkable. No enlarged lymph nodes. IMPRESSION: 1. No pulmonary embolus. 2. Interseptal thickening could relate to atelectasis and/or pulmonary edema. 3. Prominence of pulmonary arteries is concerning for pulmonary hypertension. 4. Trace left pleural effusion. 5. Enlarged heterogeneous thyroid with an underlying 3.2 cm thyroid nodule. Recommend further evaluation with dedicated thyroid ultrasound on a nonemergent basis. Electronically signed by: Patsy Wong MD 01/23/24 22:31 PM
[2024-01-23] MEDS: LANTUS PER UNIT CHARGE SQ SCH (23:37)
[2024-01-23] MEDS: MAGNESIUM CHLORIDE W/CALCIUM 64MG DELAYED REL TAB PO SCH (23:38)
[2024-01-23] MEDS: GABAPENTIN 400 MG CAP PO SCH (23:38)
[2024-01-24] MEDS: LEVOTHYROXINE SODIUM 200 MCG TABLET PO SCH (05:53)
[2024-01-24] MEDS: ACETAMINOPHEN 325 MG TAB PO PRN (05:53)
[2024-01-24 06:57] LABS: Basophils # (auto) 0.04 K/uL (0.00-0.20); Basophils % (auto) 0.4 %; Eosinophils # (auto) 0.26 K/uL (0.00-0.50); Eosinophils % (auto) 2.5 %; Hematocrit (blood only) 32.1 % (37.0-47.0); Hemoglobin 10.1 g/dl (12.0-16.0); Immature Granulocytes # (auto) 0.03 K/uL (0.01-0.20); Immature Granulocytes % (auto) 0.3 %; Lymphocytes # (auto) 1.27 K/uL (1.20-3.40); Lymphocytes % (auto) 12.4 %; Mean Corpuscular Hemoglobin 27.2 pg (25.0-34.0); Mean Corpuscular Hgb Conc 31.5 g/dL (32.0-36.0); Mean Corpuscular Volume 86.5 fL (80.0-100.0); Monocytes # (auto) 0.93 K/uL (0.11-0.59); Neutrophils # (auto) 7.75 K/uL (1.40-6.50); Neutrophils % (auto) 75.4 %; Platelet Count 216 K/uL (130-400); RDW Coefficient of Variation 14.9 % (11.5-14.5); RDW Standard Deviation 47.2 fL (36.4-46.3); Red Blood Count 3.71 M/uL (4.20-5.40); White Blood Count 10.28 K/ul (4.8-10.8)
[2024-01-24 07:20] LABS: Albumin Level 3.4 gm/dl (3.4-5.0); BUN Creatinine Ratio 19.5 (10-20); Calcium 9.3 mg/dl (8.6-10.3); Creatinine Clr Calc Pharmacy 94.6 ml/min; Est GFR (African American) 93.9 ml/min; Phosphorus 2.8 mg/dl (2.5-4.9); Potassium 4.1 mmol/L (3.5-5.1)
[2024-01-24 07:29] LABS: Troponin I High Sensitivity 36.3 pg/ml (0-14)
[2024-01-24] MEDS ORDERED: GLUCOSE 10 TAB/TUBE PO PRN (09:00)
[2024-01-24] MEDS ORDERED: COQ10 100 MG PO SCH (09:00)
[2024-01-24] MEDS ORDERED: CARBOHYDRATES FOR HYPOGLYCEMIA PO PRN (09:00)
[2024-01-24] MEDS ORDERED: GLUCAGON FOR INJ 1 MG VIAL SQ PRN (09:00)
[2024-01-24] MEDS ORDERED: ARIPiprazole 10 MG TAB PO SCH (09:00)
[2024-01-24] MEDS ORDERED: DEXTROSE 50% 50 ML SYRINGE IV PRN (09:00)
[2024-01-24] MEDS: prednisoLONE acetate 1% OP SUSP 5 ML BTL OP SCH (09:09)
[2024-01-24] MEDS: ARIPiprazole 5 MG TAB PO SCH (09:10)
[2024-01-24] MEDS: FAMOTIDINE 40 MG TABLET PO SCH (09:10)
[2024-01-24] MEDS: CYANOCOBALAMIN (B-12) 500 MCG TABLET PO SCH (09:10)
--- NOTE | 2024-01-24 10:20 | Cardiology Consultation ---
Date of Consultation January 24, 2024 Assessment & Plan (1) SVT (supraventricular tachycardia): (2) Chest pressure: (3) Atypical chest pain: (4) Elevated troponin I level: Plan Ms. Pickering is a 63-year-old female with history of Possible Pericarditis in 07/2022, Hypertension, Dyslipidemia, Type 2 Diabetes Mellitus, GERD, VERA, Hypothyroidism, Jcxbtsl-Nihxvfwft-Ykltlvqh, Anxiety/Depression, Asthma, and an Atypical Chest Pain Syndrome who presented to [facility] ER on 01/23/24 complaining of Chest Pressure that began at approximately noon that same day, and she also describes "jabbing chest pain" off and on which is made worse by direct palpation, breathing, or coughing. It is not worsen with exertion nor does it improve with rest. Neither the chest pressure or the jabbing chest pain radiate, but she did have associated SOB yesterday while tachycardic but she did not have any sensation that her heart was racing, no sensation of palpitations or tachy-palpitations. She denies any associated nausea, vomiting or diaphoresis. Today she has this ongoing chest pain but her breathing got much better after she converted from her narrow complex tachycardia to sinus rhythm/sinus tachycardia. Her initial troponin I was elevated at 17.3 pg/mL and follow-up value is 36.3 pg/mL. She was hypomagnesemic on admission as well. Her initial EKG on 01/23/2024 showed a narrow complex tachycardia (most likely supraventricular tachycardia) with nonspecific ST and T-wave abnormalities. Patient was given IV Adenosine and subsequently converted to sinus tachycardia/sinus rhythm. Her magnesium has been supplemented and is up to 2.0 mg/dL today. TSH normal, and she is mildly anemic. Patient was previously on Metoprolol around the time of her possible pericarditis, that was subsequently discontinued. Patient did not have any side effects with Metoprolol. We discussed what a supraventricular tachycardia is, and we also discussed that her tachycardia likely lead to some demand ischemia which caused her high sensitivity troponin I to be elevated. Most recent high sensitivity troponin I was 36.3 pg/mL, and a follow-up value is pending. Provided that her high sensitivity troponin I does not continue to increase or if her next value is lower -- no inpatient ischemic workup is necessary. In this case could consider outpatient stress testing. We also discussed her atypical chest pain syndrome and what makes it atypical -- this is most likely musculoskeletal in origin. We reviewed her echocardiogram showing normal LV size, wall motion, and systolic function, mild concentric LVH, and no significant valvular abnormalities. Recommend the followin. Add Metoprolol Tartrate 25 mg b.i.d., can convert to the long-acting form of this medication on discharge. 2. Continue Atorvastatin 80 mg daily. 3. Continue Plavix 75 mg daily. 4. Continue magnesium supplement. 5. Consider outpatient stress testing. 6. If this PSVT becomes a recurrent issue, would recommend EP study and ablation. Thank you for asking us to see this patient in consultation. History of Present Illness Reason for Consultation: -- Supraventricular Tachycardia. -- Elevated High Sensitivity Troponin I. Requesting Physician: Licha Beltran MD Attending Physician: Ethan Abebe MD History of Present Illness Ms. Pickering is a 63-year-old female with history of Possible Pericarditis in 07/2022, Hypertension, Dyslipidemia, Type 2 Diabetes Mellitus, GERD, VERA, Hypothyroidism, Nxyhfsk-Plkfaerbc-Xhipfssj, Anxiety/Depression, Asthma, and an Atypical Chest Pain Syndrome who presented to [facility] ER on 01/23/24 complaining of Chest Pressure that began at approximately noon that same day, and she also describes "jabbing chest pain" off and on which is made worse by direct palpation, breathing, or coughing. It is not worsen with exertion nor does it improve with rest. Neither the chest pressure or the jabbing chest pain radiate, but she did have associated SOB yesterday while tachycardic but she did not have any sensation that her heart was racing, no sensation of palpitations or tachy-palpitations. She denies any associated nausea, vomiting or diaphoresis. Today she has this ongoing chest pain but her breathing got much better after she converted from her narrow complex tachycardia to sinus rhythm/sinus tachycardia. Her initial troponin I was elevated at 17.3 pg/mL and follow-up value is 36.3 pg/mL. She was hypomagnesemic on admission as well. Her initial EKG on 01/23/2024 showed a narrow complex tachycardia (most likely supraventricular tachycardia) with nonspecific ST and T-wave abnormalities. Patient was given IV Adenosine and subsequently converted to sinus tachycardia/sinus rhythm. Her magnesium has been supplemented and is up to 2.0 mg/dL today. TSH normal, and she is mildly anemic. Patient was previously on Metoprolol around the time of her possible pericarditis, that was subsequently discontinued. Patient did not have any side effects with Metoprolol. She is compliant with her medications and has not had any adverse side effects. Allergies Allergy/AdvReac Type Severity Reaction Status Date / Time adhesive Allergy Unknown "eats my Verified 01/18/24 16:25 skin" Aminoglycosides Allergy Unknown Hives Verified 01/18/24 16:25 azithromycin Allergy Unknown Hives Verified 01/18/24 16:25 bacitracin Allergy Unknown RASH Verified 01/18/24 16:25 Cephalosporins Allergy Unknown Hives Verified 01/18/24 16:25 ciprofloxacin Allergy Unknown EYE Verified 01/18/24 16:25 SWELLING, "burned my eyelids" erythromycin base Allergy Unknown HIVES Verified 01/18/24 16:25 hydroxyzine Allergy Unknown PT DOESN'T Verified 01/18/24 16:25 REMEMBER REACTION minocycline Allergy Unknown HIVES Verified 01/18/24 16:25 mupirocin Allergy Unknown RASH Verified 01/18/24 16:25 neomycin Allergy Unknown RASH Verified 01/18/24 16:25 polymyxin B Allergy Unknown RASH Verified 01/18/24 16:25 Quinolones Allergy Unknown Hives Verified 01/18/24 16:25 tetracycline Allergy Unknown HIVES Verified 01/18/24 16:25 topiramate Allergy Unknown SOB,DIZZINE Verified 01/18/24 16:25 SS duloxetine AdvReac Intermediate slurred Verified 01/18/24 16:25 speech/memory loss/ "like I was drunk" aspirin AdvReac Unknown NOSEBLEEDS- Verified 01/18/24 16:25 CAN TAKE IBUPROFEN Home Medications Medication Instructions Recorded Confirmed Type Incentive Spirometer #1 ea 03/14/21 01/18/24 Rx blood-glucose meter,continuous 06/17/21 01/18/24 History (DexMobimedia G6 Grinder Hardboard) blood-glucose sensor (Dexcom G6 06/17/21 01/18/24 History Sensor device) blood-glucose transmitter (Dexcom 06/17/21 01/18/24 History G6 Transmitter device) amitriptyline 25 mg tablet 25 mg PO HS 01/06/22 01/23/24 History hydrocortisone 2.5 % topical 1 applic topical BID PRN skin 05/06/22 01/23/24 Rx ointment irritation #80 grams blood sugar diagnostic (OneTouch #300 ea 06/15/22 01/18/24 Rx Verio test strips) blood-glucose meter (OneTouch #1 ea 06/15/22 01/18/24 Rx Verio Meter) lancets 30 gauge (OneTouch Delica #300 ea 06/15/22 01/18/24 Rx Lancets) coQ10 (ubiquinol) 100 mg capsule 200 mg PO QAM 10/30/22 01/23/24 History (CoQmax Ubiquinol) cyanocobalamin (vitamin B-12) 1,000 mcg PO QAM 10/30/22 01/23/24 History 1,000 mcg capsule vitamin E (dl, acetate) 450 mg 450 mg PO QAM 10/30/22 01/23/24 History (1,000 unit) capsule clonazepam 0.5 mg tablet 0.5 mg PO HS 11/04/22 01/23/24 History clopidogrel 75 mg tablet 75 mg PO HS #30 tabs 02/05/23 01/23/24 Rx dexlansoprazole 60 mg 60 mg PO QAM #30 caps 02/05/23 01/23/24 Rx capsule,biphase delayed release (Dexilant) famotidine 40 mg tablet 40 mg PO BID #60 tabs 02/05/23 01/23/24 Rx albuterol sulfate 90 mcg/actuation 1 - 2 puff inhalation Q4H PRN 02/18/23 01/23/24 Rx aerosol inhaler (Ventolin HFA) shortness of breath #8 grams vortioxetine 20 mg tablet 20 mg PO BID 05/10/23 01/23/24 History (Trintellix) levothyroxine 200 mcg tablet 200 mcg PO QAM #90 tabs 06/08/23 01/23/24 Rx ascorbic acid (vitamin C) 1,000 mg 1 g PO BID 09/13/23 01/23/24 History tablet (Vitamin C) cholecalciferol (vitamin D3) 50 50 mcg PO QAM 09/13/23 01/23/24 History mcg (2,000 unit) capsule diphenhydramine HCl 50 mg tablet 50 mg PO HS 09/13/23 01/23/24 History magnesium chloride 64 mg 64 mg PO QAM 09/13/23 01/23/24 History (magnesium chloride) tablet ropinirole 2 mg tablet 2 mg PO HS 09/13/23 01/23/24 History triamcinolone acetonide 0.1 % 1 applic topical BID #80 grams 10/11/23 01/23/24 Rx topical cream pen needle, diabetic 32 gauge x #500 ea 10/25/23 01/18/24 Rx 1/4" (UltiCare Pen Needle) baclofen 10 mg tablet 10 mg PO HS jaw spasms/neuralgia 10/28/23 01/23/24 Rx #30 tabs gabapentin 400 mg capsule 800 mg PO TID 11/11/23 01/23/24 History lidocaine 5 % topical patch 1 patch topical DAILY PRN pain #15 12/23/23 01/23/24 Rx ea amoxicillin 875 mg-potassium 1 tab PO BID 12/24/23 01/23/24 History clavulanate 125 mg tablet doxycycline hyclate 100 mg tablet 0 mg PO UD 12/24/23 01/23/24 History fluticasone propionate 45 1 puff inhalation DAILY PRN sob 12/24/23 01/23/24 History mcg-salmeterol 21 mcg/actuation and wheezing HFA inhaler (Advair HFA) insulin lispro 100 unit/mL 18 unit subcut TIDM 12/24/23 01/23/24 History subcutaneous pen (Humalog KwikPen (U-100) Insulin) insulin glargine 100 unit/mL (3 44 unit (0.44 mL) subcut HS #45 mL 12/27/23 01/23/24 Rx mL) subcutaneous pen (Lantus Solostar U-100 Insulin) metformin 500 mg tablet,extended 1,000 mg (2 x 500 mg) PO BID 90 12/27/23 01/23/24 Rx release 24 hr days #360 tabs atorvastatin 80 mg tablet 80 mg PO HS #90 tabs 01/06/24 01/23/24 Rx exenatide microspheres 2 mg/0.85 2 mg (0.85 mL) subcut Q7D #3.4 mL 01/07/24 01/23/24 Rx mL subcutaneous auto-injector (Lalita Welch) infliximab-axxq 100 mg intravenous 100 mg IV MONTHLY 01/18/24 01/23/24 History solution (Avsola) prednisolone acetate 1 % eye 1 drp ophthalmic (eye) QID 01/18/24 01/23/24 History drops,suspension quetiapine 300 mg tablet 300 mg PO HS 01/23/24 01/23/24 History aripiprazole 5 mg tablet 5 mg PO QAM 01/24/24 01/24/24 History Patient History Medical History History of recent fall 2 falls since Oct 2023 - most recent Nov 2023 - no med eval for/no known injuries. Pericarditis ? official dx of 2021 - eval with Dr. Cowan. Does not follow with cardiology currently/pt told heart function was fine and cleared Oct 2022. Hives stress hives since Sep 2023 - ongoing / no worsening, comes and goes/benadryl nightly. Family history of reaction to anesthesia sister n/v. brother - heart stopped. had to do heart massage. mom n/v, hard to get awake. History of anesthesia reaction sometimes slow to wake up. Restless leg syndrome High cholesterol Sciatica Type 2 diabetes mellitus Morbid obesity with BMI of 40.0-44.9, adult Food intolerance Voice hoarseness Allergy status to unspecified drugs, medicaments and biological substances current under allergy testing due to multiple allergies. Dr. Rodriguez. Multiple drug allergies Seasonal rhinitis Low magnesium level Hypercalcemia Shoulder pain, bilateral recent ed visit 12/23/23 back/chest area, left arm shoulder to elbow. [facility]. unknown etiology. Fbkjmee-Pxhxyssis-Vqvey syndrome Nausea & vomiting Hypomagnesemia Diverticulitis Hidradenitis suppurativa Chronic kidney disease, stage 3 Metabolic syndrome Vitamin D deficiency Generalized muscle weakness History of COVID-19 last 09/2021--symptoms have resolved most recent Sep week before 2022. Full body tremors, weak arms, legs, tired, loss of appetite/loss of taste and smell, nausea , memory problems. ongoing fatigue and memory problems. 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 Degenerative disc disease Deep vein thrombosis reason for plavix; 25 years ago RLE Enlarged heart following with Dr. Cowan On home oxygen therapy 4L via CPAP at night Thyroid nodule monitors Generalized anxiety disorder with panic attacks Diabetic peripheral neuropathy associated with type 2 diabetes mellitus Sleep apnea cpap with 4L of oxygen at HS Surgical History History of detached retina repair torn retina, 2 left, 1 right Status post epidural steroid injection Status post trigger finger release total of 3 History of colonoscopy with polypectomy History of esophagogastroduodenoscopy (EGD) History of umbilical hernia repair History of tooth extraction History of bilateral cataract extraction H/O ligation of vein RIGHT LEG Family History Aunt Breast cancer Uncle Family hx of colon cancer Colorectal cancer Mother Diabetes Family history of diabetes mellitus Heart disease Family history of reaction to anesthesia had difficulty waking and her "oxygen level would drop" Hypertension Stroke Father Prostate cancer Cancer Grandfather (Maternal) Myocardial infarction Sister Diabetes Family history of diabetes mellitus Family history of reaction to anesthesia had difficulty waking and her "oxygen level would drop" Hypertension Family/Other Family hx of colon cancer cousin Brother Diabetes Family history of reaction to anesthesia per pt had difficulty waking, HR also dropped Denies family history of Ovarian cancer Uterine cancer Social History Smoking Status: Never smoker Second Hand Exposure: No; Do You Dip or Chew Tobacco: No; Hx Alcohol Use: Yes Alcohol type: wine Hx Substance Use: No Preferred Language: Pashto Communication Ability: Effective Visual Impairment: No Limitations Hearing Ability: Normal Laborer Operator Required: No Beliefs That Will Affect Care: None marital status: Single Current Living Situation: Alone Current Living Situation Comment: has caregivers that come in current occupational status: disabled How many Children do You have: 0 Feels Safe at Home: Yes Safety Concerns: Feels Safe At This Time Diet: diabetic during the past year weight has: decreased > 10 lbs Seatbelt Use: always Sunscreen Use: Yes Assistive Devices: CPAP, Oxygen - at Night and Walker Review of Systems Review of Systems: -- Normal appetite, caloric intake, and fluid intake leading up to her presentation. -- She denies any fevers, chills, night sweats, or any recent illnesses. -- Wears CPAP at night with O2 at 4 L/mi n. -- 10 point ROS completed and is negativ e with the exception of what is mentioned in the HPI. Physical Exam Physical Exam: Vital signs as listed. GENERAL: Patient in no acute distress. HEENT: Head is atraumatic, normocephalic. EOM's intact. Facies symmetric. No perioral cyanosis. NECK: No JVD. JVP is not elevated. Carotid upstrokes are + 2 bilaterally without bruits. CHEST/LUNGS: Clear to auscultation throughout all lung olvera. No wheezes, rales, or crackles. CVS: S1 and S2 are regular without murmurs, gallops, or rubs. PMI is nonpalpable. No lifts, heaves, or thrills. No abdominal aortic or renal bruits. ABDOMINAL EXAM: Bowel sounds are present. MUSCULOSKELETAL EXAM: Diffuse reproducible anterior chest wall tenderness with direct palpation. NEUROLOGIC EXAM: Patient is awake, alert, and oriented. Pleasant and cooperative. Answers questions appropriately. Speech is clear. ECHOCARDIOGRAM 01/24/24: -- Normal LV size and systolic function. -- Mild concentric LVH. -- LVEF 55% to 60% with normal wall salma on. -- No significant valvular abnormalities . Results & Data Vital Signs (Past 12 Hours) Vital Signs Temp Pulse Pulse Resp BP BP Pulse Ox 01/24/24 07:10 36.7 C 78 20 154/74 H 98 01/24/24 05:58 36.6 C 85 22 129/72 98 01/24/24 03:00 36.6 C 88 17 144/73 H 97 01/24/24 01:45 94 H 15 96 01/23/24 23:00 01/23/24 23:00 36.6 C 114 H 23 152/95 H 97 01/23/24 22:28 93 H O2 Del Method O2 Flow Rate 01/24/24 07:10 Nasal Cannula 4 01/24/24 05:58 Nasal Cannula 4 01/24/24 03:00 Nasal Cannula 01/24/24 01:45 5 01/23/24 23:00 Nasal Cannula 4 01/23/24 23:00 Nasal Cannula 01/23/24 22:28 Laboratory Results Laboratory Results - last 24 hr 01/23/24 01/23/24 01/23/24 18:57 19:01 19:05 WBC 13.12 H RBC 4.10 L Hgb 11.1 L POC Hgb 12.2 Hct 36.0 L POC Hct 36 L MCV 87.8 MCH 27.1 MCHC 30.8 L RDW Std Deviation 47.7 H RDW Coeff of Aleah 14.8 H Plt Count 240 MPV 10.2 Immature Gran % (Auto) 0.3 Neut % (Auto) 83.2 Lymph % (Auto) 6.8 Pettis % (Auto) 6.5 Eos % (Auto) 2.8 Baso % (Auto) 0.4 Neut # (Auto) 10.92 H Lymph # (Auto) 0.89 L Pettis # (Auto) 0.85 H Eos # (Auto) 0.37 Baso # (Auto) 0.05 Immature Gran # (Auto) 0.04 PT 11.8 INR 1.1 APTT 27 PTT Ratio 1.0 POC Sodium 137 Sodium 135 L POC Potassium 4.4 Potassium 4.5 POC Chloride 98 L Chloride 99 Carbon Dioxide 27 POC Total CO2 29 Anion Gap 9 POC Anion Gap 16.0 POC BUN 14 BUN 14 Creatinine 0.82 POC Creatinine 0.9 Est Cr Clr Drug Dosing 85.3 Est GFR ( Amer) 87.0 Est GFR (Non-Af Amer) 75.1 BUN/Creatinine Ratio 17.1 Glucose 227 H POC Glucose POC Glucose (other) 217 H Calcium 9.0 POC Ioniz Calcium Han 1.17 Phosphorus Magnesium 1.4 L Total Bilirubin 0.4 AST 12 L ALT 10 Alkaline Phosphatase 81 Troponin I High Sens 17.3 H Total Protein 7.7 Albumin 3.5 Globulin 4.2 H Albumin/Globulin Ratio 0.8 L Lipase 18 TSH 0.973 Hepatitis C Ab (EIA) SARS-CoV-2, RNA, NAAT NEGATIVE 01/23/24 01/24/24 22:34 06:37 WBC 10.28 RBC 3.71 L Hgb 10.1 L POC Hgb Hct 32.1 L POC Hct MCV 86.5 MCH 27.2 MCHC 31.5 L RDW Std Deviation 47.2 H RDW Coeff of Aleah 14.9 H Plt Count 216 MPV 10.0 Immature Gran % (Auto) 0.3 Neut % (Auto) 75.4 Lymph % (Auto) 12.4 Pettis % (Auto) 9.0 Eos % (Auto) 2.5 Baso % (Auto) 0.4 Neut # (Auto) 7.75 H Lymph # (Auto) 1.27 Pettis # (Auto) 0.93 H Eos # (Auto) 0.26 Baso # (Auto) 0.04 Immature Gran # (Auto) 0.03 PT INR APTT PTT Ratio POC Sodium Sodium 135 L POC Potassium Potassium 4.1 POC Chloride Chloride 101 Carbon Dioxide 29 POC Total CO2 Anion Gap 5 POC Anion Gap POC BUN BUN 15 Creatinine 0.77 POC Creatinine Est Cr Clr Drug Dosing 94.6 Est GFR ( Amer) 93.9 Est GFR (Non-Af Amer) 81.0 BUN/Creatinine Ratio 19.5 Glucose 139 H POC Glucose 204 H POC Glucose (other) Calcium 9.3 POC Ioniz Calcium Han Phosphorus 2.8 Magnesium 2.0 Total Bilirubin AST ALT Alkaline Phosphatase Troponin I High Sens 36.3 H D Total Protein Albumin 3.4 Globulin Albumin/Globulin Ratio Lipase TSH Hepatitis C Ab (EIA) Pending SARS-CoV-2, RNA, NAAT Diagnostic Findings CTA CHEST LUNGS 01/23/24: 1. No pulmonary embolus. 2. Interseptal thickening could relate to atelectasis and/or pulmonary edema. 3. Prominence of pulmonary arteries is concerning for pulmonary hypertension. 4. Trace left pleural effusion. 5. Enlarged heterogeneous thyroid with an underlying 3.2 cm thyroid nodule. Recommend further evaluation with dedicated thyroid ultrasound on a nonemergent basis. CXR 01/23/24: Lung volumes are mildly diminished. There is no pneumothorax or pleural effusion. Mild interstitial thickening is present. No definite consolidation. Mild cardiomegaly is unchanged. There are calcified mediastinal lymph nodes. IMPRESSION: Stable cardiomegaly. Interstitial prominence. This may be related to a hypoventilatory study however mild pulmonary edema could appear similar. Medications Administered Medication List Acetaminophen (Acetaminophen 325 Mg Tab) 650 mg PO Q4H PRN PRN Reason: Pain or Fever Stop: 02/22/24 22:25 Last Admin: 01/24/24 05:53 Dose: 650 mg Documented By: MMG Aripiprazole (Aripiprazole 5 Mg Tab) 5 mg PO QAM [facility] Stop: 02/23/24 08:59 Last Admin: 01/24/24 09:10 Dose: 5 mg Documented By: MTG Cyanocobalamin (Cyanocobalamin (B-12) 500 Mcg Tablet) 1,000 mcg PO QAM [facility] Stop: 02/23/24 08:59 Last Admin: 01/24/24 09:10 Dose: 1,000 mcg Documented By: PAT Famotidine (Famotidine 40 Mg Tablet) 40 mg PO BID SHAMIKA Stop: 02/23/24 08:59 Last Admin: 01/24/24 09:10 Dose: 40 mg Documented By: PAT Gabapentin (Gabapentin 400 Mg Cap) 800 mg PO TID [facility] Stop: 02/22/24 22:25 Last Admin: 01/24/24 09:10 Dose: 800 mg Documented By: Admin: 01/23/24 23:38 Dose: 800 mg Documented By: JOE Insulin Glargine (Lantus Per Unit Charge) 30 units SQ HS [facility] Stop: 02/22/24 22:25 Last Admin: 01/23/24 23:37 Dose: 30 units Documented By: JOE Co-signed By: MIRIAM Levothyroxine Sodium (Levothyroxine Sodium 200 Mcg Tablet) 200 mcg PO DAILYBB [facility] Stop: 02/23/24 06:29 Last Admin: 01/24/24 05:53 Dose: 200 mcg Documented By: JOE Magnesium Chloride (Magnesium Chloride W/Calcium 64mg Delayed Rel Tab) 64 mg PO BID [facility] Stop: 02/22/24 22:25 Last Admin: 01/24/24 09:09 Dose: 64 mg Documented By: MTMely Admin: 01/23/24 23:38 Dose: 64 mg Documented By: JOE Prednisolone Acetate (Prednisolone Acetate 1% Op Susp 5 Ml Btl) 1 drops OP QID [facility] Stop: 02/23/24 08:59 Last Admin: 01/24/24 09:09 Dose: 1 drops Documented By: PAT Vitamin D (Cholecalciferol 25 Mcg (1000 Units) Tab) 50 mcg PO QAM [facility] Stop: 02/23/24 08:59 Last Admin: 01/24/24 10:52 Dose: 50 mcg Documented By: PAT Discontinued Medications Adenosine (Adenosine Iv Soln 3 Mg/Ml 2 Ml Vial) Confirm Administered Dose 12 mg IV .STK-MED ONE Stop: 01/23/24 18:55 Last Admin: 01/23/24 19:02 Dose: Not Given Documented By: PALOMO Adenosine (Adenosine Iv Soln 3 Mg/Ml 2 Ml Vial) 6 mg IV NOW STA Stop: 01/23/24 18:57 Last Admin: 01/23/24 19:00 Dose: 6 mg Documented By: PALOMO Magnesium Sulfate/Dextrose (Magnesium Sulfate / D5w) 1 gm in 100 mls @ 200 mls/hr IV Q30M SHAMIKA Stop: 01/23/24 20:59 Last Infusion: 01/23/24 21:47 Dose: Infused Documented By: Admin: 01/23/24 20:57 Dose: 200 mls/hr Documented By: Infusion: 01/23/24 20:56 Dose: Infused Documented By: Admin: 01/23/24 20:18 Dose: 200 mls/hr Documented By: ZINA Ioversol (Optiray 320 125ml) 116 ml IV ONCE ONE Stop: 01/23/24 22:03 Last Admin: 01/23/24 22:02 Dose: 116 ml Documented By: DANILO Ketorolac Tromethamine (Ketorolac Tromethamine 15 Mg/Ml Vial) 15 mg IV NOW ONE Stop: 01/24/24 08:46 Last Admin: 01/24/24 10:48 Dose: 15 mg Documented By: PAT PG Care Time/CCT Total # of Minutes Spent Total Time Spent with Patient: Total time spent is greater than 50% in coordination of care (as documented) at patient's floor/unit and/or counseling patient:44 Coding [place] [address] INT INP/OBS CARE 1/40MIN Patient Type Established History Detailed Exam Detailed Medical Decision Making Moderate Complexity Diagnoses SVT (supraventricular tachycardia) I47.10 Chest pressure R07.89 Atypical chest pain R07.89 Elevated troponin I level R79.89 Time Spent (min) 62
--- NOTE | 2024-01-24 10:24 | XCELERA ---
[id number] [id number]
[2024-01-24] MEDS: KETOROLAC TROMETHAMINE 15 MG/ML VIAL IV ONE (10:48)
--- NOTE | 2024-01-24 10:48 | Electrocardiogram Report ---
Test Reason : Blood Pressure : / mmHG Vent. Rate : 172 BPM Atrial Rate : 000 BPM P-R Int : 000 ms QRS Dur : 082 ms QT Int : 268 ms P-R-T Axes : 000 -15 125 degrees QTc Int : 453 ms Supraventricular tachycardia Nonspecific ST and T wave abnormality Abnormal ECG When compared with ECG of 23-DEC-2023 17:30, Vent. rate has increased BY 65 BPM Confirmed by Ethan Abebe ([id number]) on 01/24/2024 10:47:59 AM Referred By: REFERRED SELF Confirmed By:Ethan Abebe
--- NOTE | 2024-01-24 10:50 | Electrocardiogram Report ---
Test Reason : Blood Pressure : / mmHG Vent. Rate : 108 BPM Atrial Rate : 108 BPM P-R Int : 142 ms QRS Dur : 084 ms QT Int : 326 ms P-R-T Axes : 034 -05 075 degrees QTc Int : 436 ms Sinus tachycardia Nonspecific T wave abnormality Abnormal ECG When compared with ECG of 23-JAN-2024 18:46, (unconfirmed) Vent. rate has decreased BY 64 BPM Confirmed by Ethan Abebe ([id number]) on 01/24/2024 10:50:23 AM Referred By: REFERRED SELF Confirmed By:Ethan Abebe
[2024-01-24] MEDS: CHOLECALCIFEROL 25 MCG (1000 UNITS) TAB PO SCH (10:52)
--- NOTE | 2024-01-24 10:57 | Electrocardiogram Report ---
Test Reason : Blood Pressure : / mmHG Vent. Rate : 089 BPM Atrial Rate : 089 BPM P-R Int : 144 ms QRS Dur : 094 ms QT Int : 362 ms P-R-T Axes : 027 005 026 degrees QTc Int : 440 ms Normal sinus rhythm Low voltage QRS Borderline ECG When compared with ECG of 23-JAN-2024 19:00, (unconfirmed) Nonspecific T wave abnormality no longer evident in Lateral leads Confirmed by Ethan Abebe ([id number]) on 01/24/2024 10:57:03 AM Referred By: REFERRED SELF Confirmed By:Ethan Abebe
[2024-01-24] MEDS: METOPROLOL TARTRATE 25 MG TAB PO SCH (12:04)
[2024-01-24] MEDS: INSULIN ASPART PER UNIT CHARGE SC SCH (12:09)
--- NOTE | 2024-01-24 14:15 | Hospitalist Progress Note ---
Date of Service January 24, 2024 Assessment & Plan (1) Chest pain: Plan: Clearly MSK in nature with exquisite tenderness to palpation over sternum up into right anterior chest wall and right shoulder. SVT was an incidental finding CT angiogram the chest almost nondiagnostic for but negative for PE grossly, with possible pulmonary edema, evidence of pulmonary hypertension, and a trace left pleural effusion Troponin mildly elevated and peaked at 36, no ischemia on EKGs, and echocardiogram without wall motion abnormalities and with preserved EF start Voltaren gel, can use prn toradol sparingly and monitor for improvement (2) SVT (supraventricular tachycardia): Plan: Chest pain is separate from her SVT-noted above Heart rate found to be in the 170s in the ED-She did respond to adenosine 6 mg IV with conversion to heart rate in the 90s to 100s Magnesium level 1.4 was repleted with 2 g of mag sulfate IV, and is likely stimulus for PSVT Consult cardiology appreciated-started metoprolol 25 Mg p.o. twice daily-patient does not recall any adverse effects from metoprolol in the past Monitor on telemetry Consider outpatient stress testing If this PSVT becomes a recurrent issue, would recommend EP study and ablation (3) History of pericarditis: Plan: in 2021 but later ruled out has MSK chest pain (4) History of DVT (deep vein thrombosis): Plan: no longer on anticoagulation (5) Obstructive sleep apnea: Plan: uses O2 qhs,not CPAP is on O2 here as she feels SANTIAGO--> check 2 step walk test prior to discharge (6) Anxiety and depression: Plan: continue home meds with Trintellix, clonazepam, Abilify, Seroquel, Elavil (7) Hypothyroidism: Plan: TSH 0.973 here with 3.2cm right sided thyroid nodule on CTA Chest seen. Previous CTA CHest showed 4cm thryoid nodule and previously had FNA which had benign path She reports having hoarse voice for at least the last year and pain in neck with palpation on that side f/u w/ Endocrine as scheduled (8) Restless legs syndrome: Plan: continue Requip (9) Asthma: Plan: no acute issues (10) Thyroid nodule greater than or equal to 1.5 cm in diameter incidentally noted on imaging study: Plan: as above (11) Diabetes mellitus type 2 with complications: Plan: Diabetes mellitus- Hold metformin Reduce glargine from 44 to 30 units subcu daily while in hospital Placed on Accu-Cheks with NovoLog SSI Plan DVT prophylaxis-add Lovenox SQ Disposition-continued stay on telemetry overnight to see if chest pain improves, likely discharge to home tomorrow. Two-step walk test prior to discharge to see if needs home oxygen Admission and Anticipated Discharge Date Admission Date: January 23, 2024 Anticipated date of discharge: 01/25/24 Subjective Pt reports ongoing acute on chronic chest pain which has been going on for 2 years. Pain is in center of chest and spreads up right side of sternum to right shoulder. Hurts worse with changes in position and taking deep breaths. She reports the Toradol given today did help take away a lot of the pain but it is now coming back. Tylenol did not help the pain go away She reports she is always very anxious and follows with psychiatry. She was seen for her right-sided chest and shoulder pain by orthopedics and had an injection which did help for 2 days but then all the pain returned. She was offered what sounds like a Gianna procedure but she declined at this time. Telemetry with normal sinus rhythm with rates in the 80s to 90s, no further SVT Review of Systems Review of Systems: All systems reviewed & are unremarkable except as noted in HPI & below (Except reports hoarseness x 2 years and neck soreness on the right) Physical Exam Constitutional: WD/WN, vitals as above ENMT: Thyroid nodule palpable in the right Respiratory: normal respiratory effort, lungs clear to auscultation Cardiovascular: RRR, no murmur, no edema Chest (Breasts): Additional Comments: Positive exquisite tenderness to palpation over right side of sternum and right anterior chest wall and right shoulder Psychiatric: Orientation: alert, oriented x 3 and cooperative Affect: + anxious affect Mood: + anxious mood Results & Data Results & Data Vital Signs (Past 12 Hours) Vital Signs Temp Pulse Pulse Resp BP BP Pulse Ox 01/24/24 10:51 81 01/24/24 10:41 36.7 C 81 18 173/78 H 100 01/24/24 08:00 01/24/24 08:00 71 01/24/24 07:10 36.7 C 78 20 154/74 H 98 01/24/24 05:58 36.6 C 85 22 129/72 98 04/22/24 03:00 36.6 C 88 17 144/73 H 97 O2 Del Method O2 Flow Rate 01/24/24 10:51 01/24/24 10:41 Nasal Cannula 01/24/24 08:00 Room Air 4 01/24/24 08:00 01/24/24 07:10 Nasal Cannula 4 01/24/24 05:58 Nasal Cannula 4 01/24/24 03:00 Nasal Cannula Laboratory Results CBC, BMP, TSH reviewed PG Care Time/CCT Total # of Minutes Spent Total Time Spent with Patient: Total time spent is greater than 50% in coordination of care (as documented) at patient's floor/unit and/or counseling patient: Coding Level of Care Code 72325 SUB INP/OBS CARE 3/50MIN Diagnoses Chest pain R07.9 SVT (supraventricular tachycardia) I47.10 History of pericarditis Z86.79 History of DVT (deep vein thrombosis) Z86.718 Obstructive sleep apnea G47.33 Anxiety and depression F41.9; F32.A Hypothyroidism E03.9 Restless legs syndrome G25.81 Mild intermittent asthma without complication J45.20 Asthma complication type: uncomplicated Asthma persistence: intermittent Asthma severity: mild Thyroid nodule greater than or equal to 1.5 cm in diameter incidentally noted on imaging study E04.1 Diabetes mellitus type 2 with complications E11.8 (9) Asthma Asthma complication type: uncomplicated Asthma persistence: intermittent Asthma severity: mild Qualified Code(s): J45.20 - Mild intermittent asthma, uncomplicated
[2024-01-24] MEDS: DICLOFENAC SOD 1% GEL 100 GM TUBE EXT SCH (15:19)
[2024-01-24] MEDS: COUGH DROP (SUGAR FREE) LOZ 24 LOZ/1 BOX BUCCAL PRN (18:15)
[2024-01-24] MEDS: KETOROLAC TROMETHAMINE 15 MG/ML VIAL IV PRN (19:24)
[2024-01-24] MEDS: ENOXAPARIN INJ 40 MG/0.4 ML SYR SQ SCH (20:51)
[2024-01-24] MEDS: QUEtiapine FUMARATE 300 MG TABLET PO SCH (20:52)
[2024-01-24] MEDS: rOPINIRole HCL 2 MG TABLET PO SCH (20:52)
[2024-01-24] MEDS: CLOPIDOGREL BISULFATE 75 MG TAB PO SCH (20:52)
[2024-01-24] MEDS: ATORVASTATIN 40 MG TAB PO SCH (20:52)
[2024-01-24] MEDS: BACLOFEN 10 MG TAB PO SCH (20:52)
[2024-01-24] MEDS: AMITRIPTYLINE HCL 25 MG TAB PO SCH (20:52)
[2024-01-24] MEDS: clonazePAM 0.5 MG TAB PO SCH (20:54)
[2024-01-24] MEDS: VORTIOXETINE HYDROBROMIDE 20 MG PO SCH (21:16)
[2024-01-25 07:18] LABS: Basophils # (auto) 0.02 K/uL (0.00-0.20); Basophils % (auto) 0.2 %; Eosinophils % (auto) 8.5 %; Hematocrit (blood only) 30.8 % (37.0-47.0); Hemoglobin 9.4 g/dl (12.0-16.0); Immature Granulocytes # (auto) 0.03 K/uL (0.01-0.20); Immature Granulocytes % (auto) 0.4 %; Lymphocytes # (auto) 1.03 K/uL (1.20-3.40); Lymphocytes % (auto) 12.5 %; Mean Corpuscular Hgb Conc 30.5 g/dL (32.0-36.0); Mean Corpuscular Volume 88.5 fL (80.0-100.0); Mean Platelet Volume 10.6 fL (9.4-12.4); Monocytes # (auto) 0.77 K/uL (0.11-0.59); Monocytes % (auto) 9.3 %; Neutrophils # (auto) 5.69 K/uL (1.40-6.50); Neutrophils % (auto) 69.1 %; Platelet Count 187 K/uL (130-400); RDW Standard Deviation 48.4 fL (36.4-46.3); Red Blood Count 3.48 M/uL (4.20-5.40); White Blood Count 8.24 K/ul (4.8-10.8)
[2024-01-25 07:34] LABS: BUN Creatinine Ratio 24.8 (10-20); Creatinine Clr Calc Pharmacy 69.3 ml/min; Est GFR (African American) 64.5 ml/min; Est GFR (Non-African American) 55.7 ml/min; Magnesium 2.2 mg/dl (1.7-2.4); Phosphorus 3.6 mg/dl (2.5-4.9); Potassium 3.8 mmol/L (3.5-5.1)
[2024-01-25] MEDS: FUROSEMIDE 20 MG TAB PO SCH (11:25)
--- NOTE | 2024-01-25 13:15 | Electrocardiogram Report ---
Test Reason : Blood Pressure : / mmHG Vent. Rate : 081 BPM Atrial Rate : 081 BPM P-R Int : 142 ms QRS Dur : 092 ms QT Int : 402 ms P-R-T Axes : 046 062 020 degrees QTc Int : 466 ms Normal sinus rhythm Normal ECG When compared with ECG of 24-JAN-2024 05:53, Questionable change in QRS axis Confirmed by Ethan Abebe ([id number]) on 01/25/2024 1:14:40 PM Referred By: REFERRED SELF Confirmed By:Ethan Abebe
[2024-01-25] MEDS: guaiFENesin 600 MG TABCR PO SCH (14:21)
[2024-01-25] MEDS: NYSTATIN POWDER 15GM BTL EXT PRN (14:22)
--- NOTE | 2024-01-25 16:22 | Discharge Summary ---
Discharge Summary Date of Service January 25, 2024 Notes For Next Care Provider Needs follow-up on chronic anemia Check BMP in 1 week since starting Lasix Check magnesium level in 1 week as well Follow-up with orthopedic surgery regarding right shoulder pain Medication Changes From Visit Added Lasix 20 mg p.o. once daily Added Toprol-XL 50 mg p.o. at bedtime Increased magnesium chloride to 64 mg p.o. twice daily Admission HPI Per Admitting Provider The patient is a 63-year-old female with a past medical history including gastroparesis, obesity, pericarditis, B12 deficiency, vitamin D deficiency, diverticulitis, gastropathy, history of DVT, VERA, anxiety and depression, diabetes mellitus, GERD, hyperlipidemia and hypertension. She presented to the emergency department with symptoms of chest pressure, and was found to have an SVT 172. She was given adenosine 6 mg IV by the ED, and converted to normal sinus rhythm in the upper 90s, with resolution of her chest pressure symptoms. She was found to have magnesium level 1.4, did receive 2 g of mag sulfate IV from the ED Principal Dx & Hospital Course #1 = Principal Diagnosis (1) Chest pain: Clearly MSK in nature with exquisite tenderness to palpation over sternum up into right anterior chest wall and right shoulder. SVT was an incidental finding CT angiogram the chest almost nondiagnostic for but negative for PE grossly, with possible pulmonary edema, evidence of pulmonary hypertension, and a trace left pleural effusion Troponin mildly elevated and peaked at 36, no ischemia on EKGs, and echocardiogram without wall motion abnormalities and with preserved EF started Voltaren gel, can use prn toradol sparingly and had some mild improvement Her chest pain and shoulder pain have been ongoing for years and I suspect she needs follow-up with orthopedic surgery to discuss possible surgery on the shoulder to improve her pain (2) SVT (supraventricular tachycardia): Chest pain is separate from her SVT-noted above Heart rate found to be in the 170s in the ED-She did respond to adenosine 6 mg IV with conversion to heart rate in the 90s to 100s Magnesium level 1.4 was repleted with 2 g of mag sulfate IV, and is likely stimulus for PSVT Consult cardiology appreciated-started metoprolol 25 Mg p.o. twice daily-patient does not recall any adverse effects from metoprolol in the past-discharged home on Toprol XL 50 mg at bedtime Given mildly elevated troponin, cardiology recommends outpatient stress [id number] with cardiology after discharge If this PSVT becomes a recurrent issue, would recommend EP study and ablation (3) History of pericarditis: in 2021 but later ruled out has MSK chest pain (4) History of DVT (deep vein thrombosis): no longer on anticoagulation (5) Obstructive sleep apnea: uses O2 qhs,not CPAP is on O2 here as she feels SANTIAGO--> checked 2 step walk test prior to discharge and she does require 2 L nasal cannula continuously Diuresing with Lasix for heart failure which should also improve her oxygenation (6) Anxiety and depression: continue home meds with Trintellix, clonazepam, Abilify, Seroquel, Elavil (7) Hypothyroidism: TSH 0.973 here with 3.2cm right sided thyroid nodule on CTA Chest seen. Previous CTA CHest showed 4cm thryoid nodule and previously had FNA which had benign path She reports having hoarse voice for at least the last year and pain in neck with palpation on that side f/u w/ Endocrine as scheduled (8) Restless legs syndrome: continue Requip (9) Asthma: no acute issues (10) Thyroid nodule greater than or equal to 1.5 cm in diameter incidentally noted on imaging study: as above (11) Diabetes mellitus type 2 with complications: Diabetes mellitus- Resume metformin, insulin, exenatide on discharge (12) Anemia: Chronic, normocytic Follow-up with PCP and would check iron studies, B12, folate Ensure up-to-date on colonoscopy screening and possibly needs EGD (13) Chronic respiratory failure with hypoxia: Secondary to heart failure Provided with 2 L nasal cannula O2 continuously (14) (HFpEF) heart failure with preserved ejection fraction: Acute on chronic HFpEF Echo with preserved EF here With pleural effusions and pulmonary edema seen on CT and hypoxia Start Lasix 20 mg p.o. once daily Check BMP in 1 week Follow daily weights, low-sodium diet, fluid restriction She has great difficulty with low-sodium diet as she gets most of her food is canned foods from the food bank Plan DVT prophylaxis-Lovenox SQ Disposition-stable for discharge to home Discharge Exam Constitutional WD/WN, vitals as above Respiratory normal respiratory effort, lungs clear to auscultation Cardiovascular RRR, no murmur, no edema Psychiatric Orientation: alert, oriented x 3 and cooperative Affect: + anxious affect Mood: + anxious mood Updated Medication List Medication Instructions Recorded Confirmed Type Incentive Spirometer #1 ea 03/14/21 01/18/24 Rx blood-glucose meter,continuous 06/17/21 01/18/24 History (Dexcom G6 Timber Deadener) blood-glucose sensor (Dexcom G6 06/17/21 01/18/24 History Sensor device) blood-glucose transmitter (Dexcom 06/17/21 01/18/24 History G6 Transmitter device) amitriptyline 25 mg tablet 25 mg PO HS 01/06/22 01/23/24 History hydrocortisone 2.5 % topical 1 applic topical BID PRN skin 05/06/22 01/23/24 Rx ointment irritation #80 grams blood sugar diagnostic (OneTouch #300 ea 06/15/22 01/18/24 Rx Verio test strips) blood-glucose meter (OneTouch #1 ea 06/15/22 01/18/24 Rx Verio Meter) lancets 30 gauge (OneTouch Delica #300 ea 06/15/22 01/18/24 Rx Lancets) coQ10 (ubiquinol) 100 mg capsule 200 mg PO QAM 10/30/22 01/23/24 History (CoQmax Ubiquinol) cyanocobalamin (vitamin B-12) 1,000 mcg PO QAM 10/30/22 01/23/24 History 1,000 mcg capsule vitamin E (dl, acetate) 450 mg 450 mg PO QAM 10/30/22 01/23/24 History (1,000 unit) capsule clonazepam 0.5 mg tablet 0.5 mg PO HS 11/04/22 01/23/24 History clopidogrel 75 mg tablet 75 mg PO HS #30 tabs 02/05/23 01/23/24 Rx dexlansoprazole 60 mg 60 mg PO QAM #30 caps 02/05/23 01/23/24 Rx capsule,biphase delayed release (Dexilant) famotidine 40 mg tablet 40 mg PO BID #60 tabs 02/05/23 01/23/24 Rx albuterol sulfate 90 mcg/actuation 1 - 2 puff inhalation Q4H PRN 02/18/23 01/23/24 Rx aerosol inhaler (Ventolin HFA) shortness of breath #8 grams vortioxetine 20 mg tablet 20 mg PO BID 05/10/23 01/23/24 History (Trintellix) levothyroxine 200 mcg tablet 200 mcg PO QAM #90 tabs 06/08/23 01/23/24 Rx ascorbic acid (vitamin C) 1,000 mg 1 g PO BID 09/13/23 01/23/24 History tablet (Vitamin C) cholecalciferol (vitamin D3) 50 50 mcg PO QAM 09/13/23 01/23/24 History mcg (2,000 unit) capsule diphenhydramine HCl 50 mg tablet 50 mg PO HS 09/13/23 01/23/24 History ropinirole 2 mg tablet 2 mg PO HS 09/13/23 01/23/24 History triamcinolone acetonide 0.1 % 1 applic topical BID #80 grams 10/11/23 01/23/24 Rx topical cream pen needle, diabetic 32 gauge x #500 ea 10/25/23 01/18/24 Rx 1/4" (UltiCare Pen Needle) baclofen 10 mg tablet 10 mg PO HS jaw spasms/neuralgia 10/28/23 01/23/24 Rx #30 tabs gabapentin 400 mg capsule 800 mg PO TID 11/11/23 01/23/24 History lidocaine 5 % topical patch 1 patch topical DAILY PRN pain #15 12/23/23 01/23/24 Rx ea doxycycline hyclate 100 mg tablet 0 mg PO UD 12/24/23 01/23/24 History fluticasone propionate 45 1 puff inhalation DAILY PRN sob 12/24/23 01/23/24 History mcg-salmeterol 21 mcg/actuation and wheezing HFA inhaler (Advair HFA) insulin lispro 100 unit/mL 18 unit subcut TIDM 12/24/23 01/23/24 History subcutaneous pen (Humalog KwikPen (U-100) Insulin) insulin glargine 100 unit/mL (3 44 unit (0.44 mL) subcut HS #45 mL 12/27/23 01/23/24 Rx mL) subcutaneous pen (Lantus Solostar U-100 Insulin) metformin 500 mg tablet,extended 1,000 mg (2 x 500 mg) PO BID 90 12/27/23 01/23/24 Rx release 24 hr days #360 tabs atorvastatin 80 mg tablet 80 mg PO HS #90 tabs 01/06/24 01/23/24 Rx exenatide microspheres 2 mg/0.85 2 mg (0.85 mL) subcut Q7D #3.4 mL 01/07/24 01/23/24 Rx mL subcutaneous auto-injector (Byaaron Timmonsse) infliximab-axxq 100 mg intravenous 100 mg IV MONTHLY 01/18/24 01/23/24 History solution (Avsola) prednisolone acetate 1 % eye 1 drp ophthalmic (eye) QID 01/18/24 01/23/24 History drops,suspension quetiapine 300 mg tablet 300 mg PO HS 01/23/24 01/23/24 History aripiprazole 5 mg tablet 5 mg PO QAM 01/24/24 01/24/24 History diclofenac sodium 1 % topical gel 4 g EXT QID #100 grams 01/25/24 Rx (Voltaren Arthritis Pain) furosemide 20 mg tablet 20 mg PO QAM #30 tabs 01/25/24 Rx guaifenesin 600 mg tablet, 600 mg PO Q12 #60 tabs 01/25/24 Rx extended release 12 hr (Mucinex) magnesium chloride 64 mg 64 mg PO BID #60 tabs 01/25/24 01/23/24 Rx (magnesium chloride) tablet metoprolol succinate 50 mg 50 mg PO HS #30 tabs 01/25/24 Rx tablet,extended release 24 hr (Toprol XL) Hospital Stay Data Consultations 01/23/24 20:29 ED Decision to Admit Stat 01/23/24 22:26 Consult Cardiology Routine Diagnostic Imagining Performed 01/23/24 20:28 CT angio chest PE protocol Stat Echocardiogram Pending Results Patient Have Any Pending Studies at Discharge: No Discharge Instructions Given to Patient (Per Discharging Provider) You were admitted with a rapid heart rate and rhythm called supraventricular tachycardia. This resolved with medication and you were placed on a medication called metoprolol to keep your heart rate from going fast in the future. You are needing extra oxygen to keep your oxygen levels normal and this is from fluid in your lungs from heart failure. You were started on a water pill called lasix to get this fluid out of your lungs. It is also helpful for you to eat a low sodium diet and not drink more than 1.8 L of fluid per day. Your chest pain is not from a problem with your heart. It is from muscle soreness from your chronic right shoulder issue. Please follow up with your Orthopedic Surgeon to reconsider surgical procedure to correct this. In the meantime, you can continue using the Voltaren gel four times a day and rub it over the spots of pain. You should follow up with the Gas Line Repairer to do a stress test after discharge. You will need to wear 2L of oxygen at all times during the day and then your usual oxygen with your CPAP at nighttime. Call your Primary Care doctor if any of the following symptoms or problems start or get worse: * Shortness of breath or difficulty breathing * Wake up at night short of breath * Chest pain * Cough * Swelling of your hands, feet, or legs * More fatigued or tired with your normal activity * Palpitations - sudden fast heart beats WEIGHT * Weigh yourself every morning after using the bathroom. * Use the same scale. * Wear the same amount of clothing. * Write your weight down on a chart. * Call your Primary Care doctor if you gain more than 2-3 pounds in 1-2 days. MEDICATIONS * Use this discharge instruction sheet for medication instructions. * Take your medications at the time your doctor ordered. * Do not skip a dose of your medicines. * If you miss a dose of medicine, take it as soon as possible, but DO NOT DOUBLE A DOSE. * Read your medicine information when you get home. * Know all of the side effects of your medicine. If in doubt, ask your pharmacist * Call your Primary Care doctor's office if you have any side effects. * Be sure all of your doctors know what medicine and herbs you take (including cold, flu, and herbal medicine). Take the following with you to your follow-up doctor appointments: * Weight Chart * Medication List * List of questions Do not drink excessive alcohol, beer or wine. Total Time Total Time Spent Total Time Spent (In Minutes): 40 minutes Total Time Includes: Examination of the Patient, Discharge Planning and Medication Reconciliation Coding Level of Care Code 47177 INP/OBS DISCH >30 MIN Diagnoses Chest pain R07.9 SVT (supraventricular tachycardia) I47.10 History of pericarditis Z86.79 History of DVT (deep vein thrombosis) Z86.718 Obstructive sleep apnea G47.33 Anxiety and depression F41.9; F32.A Hypothyroidism E03.9 Restless legs syndrome G25.81 Mild intermittent asthma without complication J45.20 Asthma complication type: uncomplicated Asthma persistence: intermittent Asthma severity: mild Thyroid nodule greater than or equal to 1.5 cm in diameter incidentally noted on imaging study E04.1 Diabetes mellitus type 2 with complications E11.8 Anemia D64.9 Chronic respiratory failure with hypoxia J96.11 (HFpEF) heart failure with preserved ejection fraction I50.30
== END 2024-01-25 19:01 | disposition home or self-care (01) ==
LOC: ED 18:36 → 2S 18:36 → SUATTDRO 21:14 → 2S 22:08

== ENCOUNTER 2025-04-26 07:21 | Observation (INO) ==
--- NOTE | 2025-04-26 07:34 | Emergency Department Note ---
Impression & Plan Acute hyperglycemia, Acute hyperkalemia, Leukocytosis ED Provider Note NAME: ADRY ONEAL AGE: 64 SEX: F : 1960 ARRIVES VIA: Walk-In INFORMANT: Patient ED PROVIDER(S): Leonel Contreras DO CHIEF COMPLAINT: Elevated blood sugar HPI: Patient is a 64-year-old female with a past medical history of paroxysmal atrial tachycardia, SVT, gastroparesis, hypertension and hyperlipidemia who presents to the ER for elevated blood sugar. She was scheduled for the OR today to have a cystoscopy by Dr. Cade for thickened bladder. She is type II diabetic with a pump. She was placed on steroids earlier this week. She notes her sugars have been in as high 700s this week with the steroids but have been trending down to about 400. She denies any headache or change in vision. No chest pain or shortness of breath. No vomiting or diarrhea. She does admit to some mild nausea. No belly pain. No dysuria, urgency or frequency. No other exacerbating or remitting factors. She also notes that she constantly deals with hidradenitis in the groin but does not believe this is any worse than typical. ADDITIONAL HISTORY OBTAINED: Per HPI Chronic Medical/Social Conditions Affecting Care: Per HPI PAST MEDICAL HISTORY:See Below PAST SURGICAL HISTORY:See Below FAMILY HISTORY:See Below SOCIAL HISTORY:See Below HOME MEDICATIONS:See Below ALLERGIES:See Below VITALS:See Below PHYSICAL EXAMINATION: GENERAL: Sitting up in bed, alert, well appearing, well nourished, no distress, non-toxic EYE EXAM: normal conjunctiva. PERRL and EOM's grossly intact. OROPHARYNX: mucous membranes are moist NECK: supple, no nuchal rigidity, no adenopathy, non-tender LUNGS: Clear to auscultation. Normal chest wall mechanics HEART: no murmurs, S1 normal and S2 normal ABDOMEN: abdomen soft, non-tender, normo-active bowel sounds, no masses, no rebound or guarding. : Multiple lesions in the groin bilaterally which are draining. Notes significant induration and erythema BACK: Back is symmetrical on inspection and there is no deformity, no midline tenderness, no CVA tenderness. UPPER EXTREMITIES: upper extremities are grossly normal. LOWER EXTREMITIES: No pitting edema. NEURO EXAM: Normal sensorium, cranial nerves II-XII grossly intact, normal speech, no gross weakness of arms, no gross weakness of legs. MEDICAL DECISION MAKING: Patient is a 64-year-old female who presents ER for above-stated complaint. IV was established and blood work was obtained. Received a POC i-STAT 737 which showed hyperkalemia of 6.6 with a glucose of 432. Patient was ordered IV bicarb, calcium gluconate, fluids and insulin. Did discuss with tech who gisela this and notes that there was no hemolyzation expected or difficulty with the IV. Labs showed a leukocytosis of 14,000. No significant anemia. VBG with a pH 7.38 and a CO2 of 36 with a bicarb of 21. BMP with a hyponatremia at 128 which is as expected with the sugar elevated in the 400s. Potassium was elevated at 6.6. Creatinine at 1.2. LFTs and bilirubin were unremarkable. UA was clean. Patient was given 2 L of IV fluids. She was given 2 A of bicarb, IV calcium gluconate in combination with IV insulin for the hyperkalemia. EKG was unremarkable. Case was discussed with the hospitalist for further evaluation management treatment. Will defer to the hospitalist for further evaluation and treatment of the HS. Consults/Care Managements Discussions: Per MDM Triage Nursing notes reviewed. Limited review of prior medical records performed Vital Signs: reviewed and remarkable for no significant abnormalities Differential diagnosis: Infection, dehydration, metabolic abnormality, hypo/hyperglycemia, electrolyte disturbance, anemia, hypoxia, cardiac sources, intracerebral event, toxicologic, neurologic, as well as other pathologies. ER treatment provided: See below Diagnostics interpreted by me include EKG and cardiac monitoring as listed below: -Cardiac Monitoring: An order was placed for continuous cardiac monitoring. The monitor shows a rate of 80 with sinus rhythm. -ECG: Sinus rhythm rate 77 Normal axis No PVCs QTc 434 -Laboratory studies:Interpreted by me as stated above in MDM and shown below. Imaging studies: Xrays: As interpreted by me: None CTs show: None Procedures: None Critical Care: I have personally spent 35 minutes of critical care time in the direct management of this patient. This includes bedside care, interpretation of diagnostic studies, and testing, discussion with consultants, patient, and family members, and other required patient management activities. This 35 minutes is in excess of all separately billable procedures. Past Med/Surg History Problem List (Updated 04/26/25 @ 13:09 by Leonel Contreras DO) Leukocytosis (Acute) Acute hyperkalemia (Acute) Acute hyperglycemia (Acute) Hyperkalemia Type 2 diabetes mellitus with hyperglycemia Paroxysmal atrial tachycardia Migraine without aura Elevated serum creatinine (Acute) Urge and stress incontinence (Chronic) Bladder wall thickening (Acute) Hypertrophy of both inferior nasal turbinates Food insecurity Low magnesium level Class 3 obesity Uncontrolled type 2 diabetes mellitus with hyperglycemia Loss of protective sensation of skin of foot Neck mass Polyuria Dysgeusia Nasal septal deviation Anosmia Rotator cuff tendinitis Ulnar neuropathy at elbow of right upper extremity Rotator cuff tear arthropathy of right shoulder Ulnar neuropathy of right upper extremity Paresthesia of right upper extremity Multiple thyroid nodules Glenohumeral arthritis Cervical radiculopathy Narrow complex tachycardia Gastroparesis Allergy status to unspecified drugs, medicaments and biological substances current under allergy testing due to multiple allergies. Dr. Rodriguez. Anemia Klwknfr-Sxykjoefr-Vezgr syndrome Obstructive sleep apnea Vitamin D deficiency Hypothyroidism Vitamin B12 deficiency Hyperlipidemia Diabetic peripheral neuropathy associated with type 2 diabetes mellitus Hypertension (Acute) Medical History (Updated 04/26/25 @ 13:09 by Leonel Contreras DO) PSVT (paroxysmal supraventricular tachycardia) Narrow complex tachycardia Urge and stress incontinence Multiple thyroid nodules Low magnesium level Loss of protective sensation of skin of foot Bladder wall thickening Anemia Abzkzly-Nbjidkkas-Jyrsk syndrome Herpes zoster (01/2025) Completed treatment, left side of breast No open/weeping areas; does have residual "cox" where the shingles lesions were OLENA (acute kidney injury) History of TIA (transient ischemic attack) Patient taking Plavix but unsure of reason Per 2010 [facility] PCP records, Plavix for history of questionable TIA noted History of supraventricular tachycardia Dysgeusia Cervical radiculopathy Anosmia Acromioclavicular joint arthritis Obesity Ulnar neuropathy at elbow of right upper extremity Rotator cuff tear arthropathy of right shoulder Postural dizziness VERA (obstructive sleep apnea) CPAP + 4L HS Nasal septal deviation Hypothyroidism Hypertension Hyperlipidemia Hx of deep venous thrombosis RLE 30-40 years ago Glenohumeral arthritis Hx of epistaxis Chronic, intermittent issue No current issue Diabetic peripheral neuropathy Chronic sinusitis Chronic kidney disease, stage 3 Asthma (HFpEF) heart failure with preserved ejection fraction Dysphagia Dysphonia Rhinosinusitis Hepatic steatosis Hidradenitis suppurativa Uterine fibroid Trigeminal neuralgia History of pericarditis Possible pericarditis 2021 GERD (gastroesophageal reflux disease) History of colon polyps Pleurisy (03/10/24) Hx Hives "Stress hives" Intermittent issue since 09/2023, eliu HS Restless leg syndrome Sciatica LLE Type 2 diabetes mellitus To start insulin pump therapy 03/15/2025 Seasonal rhinitis Diverticulitis (03/2024) Hx Venous malformation 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 Osteopenia Pulmonary nodule Under surveillance Restrictive lung disease Spinal stenosis Thyroid nodule Under surveillance Generalized anxiety disorder with panic attacks Surgical History Family history of reaction to anesthesia Brother- "heart stopped and brought back" Mother/sister- difficulty waking History of anesthesia reaction Slow to wake History of detached retina repair torn retina, 2 left, 1 right Status post epidural steroid injection Status post trigger finger release total of 3 History of colonoscopy with polypectomy History of esophagogastroduodenoscopy (EGD) History of umbilical hernia repair History of tooth extraction History of bilateral cataract extraction H/O ligation of vein right leg Family History Aunt Breast cancer Uncle Family hx of colon cancer Colorectal cancer Mother Diabetes Family history of diabetes mellitus Heart disease Family history of reaction to anesthesia Hypertension Stroke Father Prostate cancer Cancer Grandfather (Maternal) Myocardial infarction Sister Diabetes Family history of diabetes mellitus Family history of reaction to anesthesia Hypertension Family/Other Family hx of colon cancer Brother Diabetes Family history of reaction to anesthesia Other No family history of bleeding disorder Denies family history of Ovarian cancer Uterine cancer Social History Smoking Status: Former smoker Second Hand Exposure: No; Do You Dip or Chew Tobacco: No; Hx Alcohol Use: Yes Alcohol type: wine Hx Substance Use: No Preferred Language: Yakut Communication Ability: Effective Visual Impairment: No Limitations Hearing Ability: Normal Personal Driver Required: No Beliefs That Will Affect Care: None marital status: Single Current Living Situation: Alone Current Living Situation Comment: has caregivers that come in current occupational status: disabled How many Children do You have: 0 Feels Safe at Home: Yes Diet: diabetic during the past year weight has: decreased > 10 lbs Seatbelt Use: always Sunscreen Use: Yes Assistive Devices: Cane, CPAP, Glasses, Oxygen - at Night and Walker Allergies Allergies Allergy/AdvReac Type Severity Reaction Status Date / Time adhesive Allergy Unknown "Eats my Verified 04/26/25 05:45 skin" Aminoglycosides Allergy Unknown Hives Verified 04/26/25 05:45 azithromycin Allergy Unknown Hives Verified 04/26/25 05:45 bacitracin Allergy Unknown Rash Verified 04/26/25 05:45 Cephalosporins Allergy Unknown Hives Verified 04/26/25 05:45 ciprofloxacin Allergy Unknown Eye Verified 04/26/25 05:45 swelling, eyelids burning erythromycin base Allergy Unknown Hives Verified 04/26/25 05:45 hydroxyzine Allergy Unknown Unknown Verified 04/26/25 05:45 minocycline Allergy Unknown Hives Verified 04/26/25 05:45 mupirocin Allergy Unknown Rash Verified 04/26/25 05:45 neomycin Allergy Unknown Rash Verified 04/23/25 17:02 polymyxin B Allergy Unknown Rash Verified 04/23/25 17:02 Quinolones Allergy Unknown Hives Verified 04/23/25 17:02 tetracycline Allergy Unknown Hives Verified 04/23/25 17:02 topiramate Allergy Unknown SOB, Verified 04/23/25 17:02 dizziness aspirin AdvReac Unknown Nosebleeds Verified 04/23/25 17:02 duloxetine AdvReac Unknown Slurred Verified 04/23/25 17:02 speech, memory loss, "drunk" feeling Home Meds Home Medications Medication Instructions Recorded Confirmed vortioxetine 20 mg tablet 20 mg PO BID 05/10/23 04/26/25 (Trintellix) ascorbic acid (vitamin C) 1,000 mg 1 g PO BID 09/13/23 04/26/25 tablet (Vitamin C) quetiapine 25 mg tablet (Seroquel) 25 mg PO BID 08/10/24 04/26/25 cholecalciferol (vitamin D3) 50 10,000 unit PO QAM 12/21/24 04/26/25 mcg (2,000 unit) capsule secukinumab 150 mg/mL subcutaneous 150 mg subcut MONTHLY 12/29/24 04/26/25 pen injector (Cosentyx Pen) blood sugar diagnostic (OneTouch 01/04/25 04/23/25 Ultra Test strips) buspirone 5 mg tablet 5 mg PO TID 02/23/25 04/26/25 clonazepam 0.5 mg tablet 0.5 mg PO HS 02/23/25 04/26/25 quetiapine 300 mg tablet (Seroquel) 300 mg PO HS 02/23/25 04/26/25 mecobalamin (vitamin B12) 5,000 5,000 mcg PO QAM 03/14/25 04/26/25 mcg disintegrating tablet rizatriptan 5 mg tablet 5 mg PO UD 03/14/25 04/26/25 prednisone 5 mg tablet 5 mg PO DAILY 04/23/25 04/26/25 spironolactone 50 mg tablet 100 mg PO BID 04/23/25 04/26/25 aripiprazole 10 mg tablet 0 mg PO QAM 04/26/25 04/26/25 atorvastatin 80 mg tablet 80 mg PO HS 04/26/25 04/26/25 clopidogrel 75 mg tablet (Plavix) 75 mg PO HS 04/26/25 04/26/25 famotidine 40 mg tablet (Pepcid) 40 mg PO BID 04/26/25 04/26/25 metformin 500 mg tablet,extended 1,000 mg PO BID 04/26/25 04/26/25 release 24 hr ropinirole 2 mg tablet 2 mg PO HS 04/26/25 04/26/25 tirzepatide 5 mg/0.5 mL 5 mg subcut Q7D 04/26/25 04/26/25 subcutaneous pen injector (Kathryn) Previous Rx's Medication Instructions Recorded Incentive Spirometer #1 ea 03/14/21 levothyroxine 200 mcg tablet 200 mcg PO QAM #90 tabs 09/25/24 magnesium oxide 400 mg PO TID #90 tabs 09/26/24 baclofen 10 mg tablet 10 mg PO HS jaw spasms/neuralgia 11/24/24 #30 tabs OneTouch Delica Plus Lancet 33 #100 ea 01/04/25 gauge (lancets) pen needle, diabetic 32 gauge x #500 ea 01/04/25 1/" (UltiCare Pen Needle) dexlansoprazole 60 mg 60 mg PO QAM #90 caps 01/16/25 capsule,biphase delayed release (Dexilant) insulin lispro 200 unit/mL (3 mL) 200 unit subcut DAILY #30 mL 01/31/25 subcutaneous pen (Humalog KwikPen U-200 Insulin) insulin pump cart,auto,BT,G6/L #15 ea 02/08/25 (Omnipod 5 (G6/Lisa 2 Plus) subcutaneous cartridge) insulin pump cartridge,auto #1 ea 02/08/25 dose,BT,G6/L2 with controller subcutaneous (Omnipod 5 Intro Kit(G6/[id number]) subcutaneous cartridge) riboflavin (vitamin B2) 400 mg 400 mg PO DAILY 30 days #30 tabs 02/28/25 tablet metoprolol succinate 50 mg 50 mg PO HS #90 tabs 03/12/25 tablet,extended release 24 hr (Toprol XL) triamcinolone acetonide 0.1 % 1 applic topical BID #15 grams 04/23/25 topical ointment Results & Data (ED) Vital Signs Vital Signs - 24 hr 04/26/25 07:12 04/26/25 07:54 04/26/25 08:09 Temperature 36.6 C Temperature Source Oral Pulse Rate 83 74 81 Pulse Rate from SpO2 Sensor Respiratory Rate 20 23 20 Blood Pressure 124/72 130/59 L Blood Pressure Mean 89 82 Pulse Oximetry 96 95 Oxygen Delivery Method Room Air Sepsis Recent Fever Within 48 Hours No Sepsis New/Unexplained Change in Mental Status No Sepsis Action Taken by Nursing No Action Required 04/26/25 08:20 04/26/25 08:24 04/26/25 08:30 Temperature Temperature Source Pulse Rate 76 77 Pulse Rate from SpO2 Sensor Respiratory Rate 23 Blood Pressure 144/81 H 144/81 H Blood Pressure Mean 102 92 Pulse Oximetry Oxygen Delivery Method Sepsis Recent Fever Within 48 Hours Sepsis New/Unexplained Change in Mental Status Sepsis Action Taken by Nursing 04/26/25 08:51 04/26/25 09:09 04/26/25 11:00 Temperature Temperature Source Pulse Rate 83 85 79 Pulse Rate from SpO2 Sensor Respiratory Rate 20 17 20 Blood Pressure 140/84 140/84 Blood Pressure Mean 102 102 Pulse Oximetry Oxygen Delivery Method Sepsis Recent Fever Within 48 Hours Sepsis New/Unexplained Change in Mental Status Sepsis Action Taken by Nursing 04/26/25 11:45 04/26/25 11:47 04/26/25 12:00 Temperature Temperature Source Pulse Rate 79 Pulse Rate from SpO2 Sensor Respiratory Rate 16 Blood Pressure 128/80 159/83 H Blood Pressure Mean 92 102 Pulse Oximetry Oxygen Delivery Method Sepsis Recent Fever Within 48 Hours Sepsis New/Unexplained Change in Mental Status Sepsis Action Taken by Nursing 04/26/25 12:00 Temperature Temperature Source Pulse Rate 79 Pulse Rate from SpO2 Sensor 80 Respiratory Rate 23 Blood Pressure Blood Pressure Mean Pulse Oximetry 95 Oxygen Delivery Method Sepsis Recent Fever Within 48 Hours Sepsis New/Unexplained Change in Mental Status Sepsis Action Taken by Nursing Laboratory Data 04/26/25 07:29 04/26/25 07:29 Lab Results 04/26/25 04/26/25 04/26/25 Range/Units 07:29 07:35 09:04 WBC 14.58 H (4.8-10.8) K/ul RBC 4.43 (4.20-5.40) M/uL Hgb 12.4 (12.0-16.0) g/dl POC Hgb 13.3 (12.0-16.0) g/dl Hct 36.9 L (37.0-47.0) % POC Hct 39 (37-47) % MCV 83.3 (80.0-100.0) fL MCH 28.0 (25.0-34.0) pg MCHC 33.6 (32.0-36.0) g/dL RDW Std Deviation 40.0 (36.4-46.3) fL RDW Coeff of Aleah 13.3 (11.5-14.5) % Plt Count 274 (130-400) K/uL MPV 10.6 (9.4-12.4) fL Immature Gran % (Auto) 0.6 % Neut % (Auto) 91.5 % Lymph % (Auto) 5.6 % [place] % (Auto) 2.2 % Eos % (Auto) 0.0 % Baso % (Auto) 0.1 % Neut # (Auto) 13.34 H (1.40-6.50) K/uL Lymph # (Auto) 0.81 L (1.20-3.40) K/uL [place] # (Auto) 0.32 (0.11-0.59) K/uL Eos # (Auto) 0.00 (0.00-0.50) K/uL Baso # (Auto) 0.02 (0.00-0.20) K/uL Immature Gran # (Auto) 0.09 (0.01-0.20) K/uL VBG pH 7.38 (7.36-7.41) VBG pCO2 36 L (38-50) mmHg VBG pO2 88 mmHg VBG HCO3 21 mmol/L VBG O2 Saturation 96.3 % VBG Base Excess -3.4 mEq/L POC Sodium 130 L (135-144) mmol/L Sodium 128 L (136-145) mmol/L POC Potassium 6.6 H* (3.3-5.0) mmol/L Potassium 6.6 H* (3.5-5.1) mmol/L POC Chloride 101 (101-112) mmol/L Chloride 98 (98-107) mmol/L Carbon Dioxide 21 (21-32) mmol/L POC Total CO2 20 L (24-31) mmol/L Anion Gap 9 (3-11) POC Anion Gap 16.0 (16-25) mmol/L POC BUN 43 H (7-18) mg/dl BUN 41 H (6-23) mg/dl Creatinine 1.24 H (0.6-1.2) mg/dl POC Creatinine 1.4 H (0.6-1.3) mg/dl Est Cr Clr Drug Dosing 56.5 ml/min eGFR 48.00 BUN/Creatinine Ratio 33.1 H (10-20) Glucose 433 H* (70-99(Fasting)) mg/dl POC Glucose 358 H* (70-99) mg/dl POC Glucose (other) 432 H* (70-99) mg/dl Calcium 9.7 (8.6-10.3) mg/dl POC Ioniz Calcium Han 1.22 (1.12-1.32) mmol/l Total Bilirubin 0.4 (0.2-1.0) mg/dl AST 13 (13-39) U/L ALT 11 (7-52) U/L Alkaline Phosphatase 108 H (34-104) U/L Total Protein 8.1 (6.0-8.3) gm/dl Albumin 4.1 (3.4-5.0) gm/dl Globulin 4.0 (2.5-4.0) gm/dl Albumin/Globulin Ratio 1.0 (0.9-2) Lipase 49 (11-82) U/L Free T4 0.81 (0.61-1.60) ng/dl Free T3 2.29 L (2.3-4.2) pg/ml Urine Color Urine Appearance (Clear) Urine pH (4.5-7.5) Ur Specific [place] (1.000-1.030) Urine Protein (Negative) Urine Glucose (UA) (Negative) Urine Ketones (Negative) Urine Blood (Negative) Urine Nitrite (Negative) Urine Bilirubin (Negative) Urine Urobilinogen (Negative) Ur Leukocyte Esterase (Negative) Urine WBC (Auto) (0-5) /hpf Urine RBC (Auto) (0-2) /hpf U Hyaline Cast (Auto) (0-2) /lpf U Epithel Cells (Auto) (0-2) /hpf Urine Bacteria (Auto) (None Seen) Urine Comment 04/26/25 04/26/25 Range/Units 10:26 11:48 WBC (4.8-10.8) K/ul RBC (4.20-5.40) M/uL Hgb (12.0-16.0) g/dl POC Hgb (12.0-16.0) g/dl Hct (37.0-47.0) % POC Hct (37-47) % MCV (80.0-100.0) fL MCH (25.0-34.0) pg MCHC (32.0-36.0) g/dL RDW Std Deviation (36.4-46.3) fL RDW Coeff of Aleah (11.5-14.5) % Plt Count (130-400) K/uL MPV (9.4-12.4) fL Immature Gran % (Auto) % Neut % (Auto) % Lymph % (Auto) % [place] % (Auto) % Eos % (Auto) % Baso % (Auto) % Neut # (Auto) (1.40-6.50) K/uL Lymph # (Auto) (1.20-3.40) K/uL [place] # (Auto) (0.11-0.59) K/uL Eos # (Auto) (0.00-0.50) K/uL Baso # (Auto) (0.00-0.20) K/uL Immature Gran # (Auto) (0.01-0.20) K/uL VBG pH (7.36-7.41) VBG pCO2 (38-50) mmHg VBG pO2 mmHg VBG HCO3 mmol/L VBG O2 Saturation % VBG Base Excess mEq/L POC Sodium (135-144) mmol/L Sodium (136-145) mmol/L POC Potassium (3.3-5.0) mmol/L Potassium (3.5-5.1) mmol/L POC Chloride (101-112) mmol/L Chloride (98-107) mmol/L Carbon Dioxide (21-32) mmol/L POC Total CO2 (24-31) mmol/L Anion Gap (3-11) POC Anion Gap (16-25) mmol/L POC BUN (7-18) mg/dl BUN (6-23) mg/dl Creatinine (0.6-1.2) mg/dl POC Creatinine (0.6-1.3) mg/dl Est Cr Clr Drug Dosing ml/min eGFR BUN/Creatinine Ratio (10-20) Glucose (70-99(Fasting)) mg/dl POC Glucose 311 H* (70-99) mg/dl POC Glucose (other) (70-99) mg/dl Calcium (8.6-10.3) mg/dl POC Ioniz Calcium Han (1.12-1.32) mmol/l Total Bilirubin (0.2-1.0) mg/dl AST (13-39) U/L ALT (7-52) U/L Alkaline Phosphatase (34-104) U/L Total Protein (6.0-8.3) gm/dl Albumin (3.4-5.0) gm/dl Globulin (2.5-4.0) gm/dl Albumin/Globulin Ratio (0.9-2) Lipase (11-82) U/L Free T4 (0.61-1.60) ng/dl Free T3 (2.3-4.2) pg/ml Urine Color Yellow Urine Appearance Clear (Clear) Urine pH 6.5 (4.5-7.5) Ur Specific [place] 1.013 (1.000-1.030) Urine Protein Negative (Negative) Urine Glucose (UA) 3+ H (Negative) Urine Ketones Negative (Negative) Urine Blood Negative (Negative) Urine Nitrite Negative (Negative) Urine Bilirubin Negative (Negative) Urine Urobilinogen Negative (Negative) Ur Leukocyte Esterase Trace H (Negative) Urine WBC (Auto) 0-5 (0-5) /hpf Urine RBC (Auto) 0-2 (0-2) /hpf U Hyaline Cast (Auto) 0-2 (0-2) /lpf U Epithel Cells (Auto) 0-2 (0-2) /hpf Urine Bacteria (Auto) None Seen (None Seen) Urine Comment Administered Medications Discontinued Medications Sodium Chloride (Nss) 1,000 mls @ 999 mls/hr IV .Q1H1M SHAMIKA Stop: 04/26/25 09:45 Last Infusion: 04/26/25 11:50 Dose: Infused Documented By: Admin: 04/26/25 07:47 Dose: 999 mls/hr Documented By: Infusion: 04/26/25 07:47 Dose: Infused Documented By: Admin: 04/26/25 07:47 Dose: 999 mls/hr Documented By: RANDELL Calcium Gluconate () 1,000 mg in 60 mls @ 240 mls/hr IV NOW STA Stop: 04/26/25 07:51 Last Infusion: 04/26/25 11:50 Dose: Infused Documented By: Admin: 04/26/25 07:47 Dose: 240 mls/hr Documented By: RANDELL Insulin Human NPH (Novolin-N (Nph) Per Unit Charge) 20 units SQ ONE ONE Stop: 04/26/25 11:36 Last Admin: 04/26/25 11:49 Dose: 20 units Documented By: EDGAR Co-signed By: ZOIE Insulin Human Regular (Novolin-R Insulin Per Unit Charge) 8 units IV NOW STA Stop: 04/26/25 07:38 Last Admin: 04/26/25 07:47 Dose: 8 units Documented By: RANDELL Co-signed By: NATE Sodium Bicarbonate (Sodium Bicarb 8.4% Inj 50 Meq/50 Ml Syr) 50 meq IV NOW STA Stop: 04/26/25 07:38 Last Admin: 04/26/25 07:47 Dose: 50 meq Documented By: RANDELL Sodium Bicarbonate (Sodium Bicarb 8.4% Inj 50 Meq/50 Ml Syr) 50 meq IV NOW STA Stop: 04/26/25 08:52 Last Admin: 04/26/25 09:09 Dose: 50 meq Documented By: RANDELL Discharge Plan Visit Data Chief Complaint: Hyperglycemia Stated Complaint: HYPERGLYCEMIA ED Provider: Leonel Contreras Discharge Problem: Acute hyperglycemia, Acute hyperkalemia, Leukocytosis Condition: Fair Forms Stand Alone Forms: My [facility] Prescriptions Prescriptions: No Action levothyroxine 200 mcg tablet 200 mcg PO QAM Qty: 90 1RF baclofen 10 mg tablet 10 mg PO HS Qty: 30 5RF cholecalciferol (vitamin D3) 50 mcg (2,000 unit) capsule 10,000 unit PO QAM Rx Instructions: otc unable to verify dexlansoprazole [Dexilant] 60 mg capsule,biphase delayed releas 60 mg PO QAM Qty: 90 3RF Humalog KwikPen Insulin 200 unit/mL (3 mL) insulin pen 200 unit subcut DAILY MDD 200 Qty: 30 3RF Patient Comments: set up to use Omnipod on 03/15/2025 Rx Instructions: To be used in the Omnipod pump (DME) Omnipod 5 (G6/Lisa 2 Plus) Cartridge See Rx Instructions .Route Qty: 15 11RF Rx Instructions: To change every 2 days; to be used with Lisa 2+ (DME) Omnipod 5 Intro([id number]) Cartridge See Rx Instructions .Route Qty: 1 0RF Rx Instructions: To be used with the Lisa 2+; change pod every 2 days metoprolol succinate [Toprol XL] 50 mg tablet extended release 24 hr 50 mg PO HS Qty: 90 3RF (DME) Incentive Spirometer Misc See Rx Instructions .MEDSUPPLY Qty: 1 0RF Rx Instructions: As directed quetiapine [Seroquel] 25 mg tablet 25 mg PO BID Patient Comments: 25 mg orally in the morning and 25mg by mouth at noon Rx Instructions: 25 mg orally in the morning and 25mg by mouth at noon (DME) OneTouch Ultra Test Strip See Rx Instructions .Route Rx Instructions: As directed (DME) lancets [OneTouch Delica Plus Lancet] 33 gauge misc See Rx Instructions .ROUTE .MEDSUPPLY Qty: 100 3RF Rx Instructions: test 1 time daily with Dexcom (DME) pen needle, diabetic [UltiCare Pen Needle] 32 gauge x 1/4" needle See Rx Instructions .Route Qty: 500 3RF Rx Instructions: use 6 times per day riboflavin (vitamin B2) 400 mg tablet 400 mg PO DAILY 30 Days Qty: 30 3RF Cosentyx Pen 150 mg/mL pen injector 150 mg subcut MONTHLY Patient Comments: "I have not taken that yet. Its in my refrigerator." Rx Instructions: MONTH prednisone 5 mg tablet 5 mg PO DAILY triamcinolone acetonide 0.1 % ointment 1 applic topical BID Qty: 15 1RF magnesium oxide 400 mg magnesium tablet 400 mg PO TID Qty: 90 11RF Rx Instructions: on hold per list from pharmacy Trintellix 20 mg tablet 20 mg PO BID ascorbic acid (vitamin C) [Vitamin C] 1,000 mg Tablet 1 g PO BID Rx Instructions: otc unable to verify atorvastatin 80 mg tablet 80 mg PO HS ropinirole 2 mg tablet 2 mg PO HS metformin 500 mg tablet extended release 24 hr 1,000 mg PO BID aripiprazole 10 mg tablet 0 mg PO QAM Patient Comments: Per pt she is unsure if she takes 10mg daily or 15mg daily rizatriptan 5 mg tablet 5 mg PO UD Rx Instructions: take 1 tablet at onset of headache; if no relief, may repeat 1 tablet after at least 2 hrs PO mecobalamin (vitamin B12) 5,000 mcg tablet,disintegrating 5,000 mcg PO QAM Rx Instructions: otc unable to verify famotidine [Pepcid] 40 mg tablet 40 mg PO BID clopidogrel [Plavix] 75 mg tablet 75 mg PO HS Mounjaro 5 mg/0.5 mL pen injector 5 mg subcut Q7D Patient Comments: THURSDAYS Rx Instructions: buspirone 5 mg tablet 5 mg PO TID quetiapine [Seroquel] 300 mg tablet 300 mg PO HS clonazepam 0.5 mg tablet 0.5 mg PO HS MDD 0.75MG/24HR Rx Instructions: 1 tab po hs. May take an additional 1/2 tab every 24 hours prn situational anxiety spironolactone 50 mg tablet 100 mg PO BID Referrals Referrals: Pro,Ethan Lock MD [Primary Care Provider] - Discharge Problem: Leukocytosis Qualifiers: Leukocytosis type: unspecified Qualified Code(s): D72.829 - Elevated white blood cell count, unspecified
[2025-04-26 07:46] LABS: Hematocrit (blood only) 36.9 % (37.0-47.0); Hemoglobin 12.4 g/dl (12.0-16.0); Mean Corpuscular Hemoglobin 28.0 pg (25.0-34.0); Mean Corpuscular Volume 83.3 fL (80.0-100.0); Platelet Count 274 K/uL (130-400); RDW Standard Deviation 40.0 fL (36.4-46.3); Red Blood Count 4.43 M/uL (4.20-5.40); White Blood Count 14.58 K/ul (4.8-10.8)
[2025-04-26] MEDS: SODIUM CHLORIDE 0.9% 1,000 ML IV SCH (07:47)
[2025-04-26] MEDS: SODIUM BICARB 8.4% INJ 50 MEQ/50 ML SYR IV STA ×2 (07:47→09:09)
[2025-04-26] MEDS: CALCIUM GLUCONATE 1,000 MG/60 ML BAG IV STA (07:47)
[2025-04-26] MEDS: NovoLIN-R INSULIN PER UNIT CHARGE IV STA (07:47)
[2025-04-26 07:58] LABS: Base Excess VBG -3.4 mEq/L; HCO3 VBG 21 mmol/L; Oxygen Saturation VBG 96.3 %; PCO2 VBG 36 mmHg (38-50); PO2 VBG 88 mmHg; pH VBG 7.38 (7.36-7.41)
[2025-04-26 08:10] LABS: Immature Granulocytes # (auto) 0.09 K/uL (0.01-0.20); Immature Granulocytes % (auto) 0.6 %
[2025-04-26 08:37] LABS: Alanine Aminotransferase 11.0 U/L (7-52); Albumin Globulin Ratio 1.0 (0.9-2); Alkaline Phosphatase 108.0 U/L (34-104); Anion Gap 9.0 (3-11); Bilirubin,Total 0.4 mg/dl (0.2-1.0); Blood Urea Nitrogen 41.0 mg/dl (6-23); Calcium 9.7 mg/dl (8.6-10.3); Carbon Dioxide 21.0 mmol/L (21-32); Chloride 98.0 mmol/L (98-107); Creatinine Clr Calc Pharmacy 56.5 ml/min; Globulin 4.0 gm/dl (2.5-4.0); Glucose 433.0 mg/dl (70-99(Fasting)); Lipase 49.0 U/L (11-82); Potassium 6.6 mmol/L (3.5-5.1); Sodium 128.0 mmol/L (136-145); Total Protein 8.1 gm/dl (6.0-8.3)
[2025-04-26 10:44] LABS: Appearance Urine Clear (Clear); Bacteria Urine Automated None Seen (None Seen); Cast Urine Automated 0-2 /lpf (0-2); Epithelial Cell Urine Auto 0-2 /hpf (0-2); Glucose Urine UA 3+ (Negative); RBC Urine Automated 0-2 /hpf (0-2); WBC Urine Automated 0-5 /hpf (0-5)
[2025-04-26] MEDS ORDERED: INSULIN HUMAN NPH SC ONE (10:44)
--- NOTE | 2025-04-26 10:59 | History & Physical Report ---
Date of Service April 26, 2025 Assessment & Plan (1) Type 2 diabetes mellitus with hyperglycemia: Plan: The patient was recently started on prednisone therapy for hidradenitis which probably aggravated her glucose levels. Steroid therapy has been discontinued. Hold insulin pump for now. NPH insulin twice daily has been ordered along with sliding scale coverage. ADA diet (2) Hyperkalemia: Plan: She was administered intravenous bicarbonate, insulin, calcium gluconate in the ED. Glucose control should normalize the potassium level. Repeat potassium level this afternoon and then daily (3) PSVT (paroxysmal supraventricular tachycardia): Plan: Currently stable in normal sinus rhythm. Telemetry. Continue current medical management (4) Hypothyroidism: Plan: Check thyroid profile. Continue current thyroid replacement therapy Plan Hopeful discharge to home tomorrow, April 27 History of Present Illness Chief Complaint: Hyperglycemia Primary Care Provider: Ethan Karimi MD 64-year-old white female with a history of insulin-dependent diabetes. She was recently switched to an insulin pump but also placed on oral prednisone for hidradenitis by dermatology. She presented today in the outpatient setting for an elective cystoscopy and was found to have glucose greater than 700 and hyperkalemia. She is subsequently placed in observation for further treatment. She denies any associated fever or chills. In the ED she was given bicarbonate, insulin, and calcium gluconate for the potassium level of 6.6. Potassium level will be repeated later today. Allergies Allergy/AdvReac Type Severity Reaction Status Date / Time adhesive Allergy Unknown "Eats my Verified 04/26/25 05:45 skin" Aminoglycosides Allergy Unknown Hives Verified 04/26/25 05:45 azithromycin Allergy Unknown Hives Verified 04/26/25 05:45 bacitracin Allergy Unknown Rash Verified 04/26/25 05:45 Cephalosporins Allergy Unknown Hives Verified 04/26/25 05:45 ciprofloxacin Allergy Unknown Eye Verified 04/26/25 05:45 swelling, eyelids burning erythromycin base Allergy Unknown Hives Verified 04/26/25 05:45 hydroxyzine Allergy Unknown Unknown Verified 04/26/25 05:45 minocycline Allergy Unknown Hives Verified 04/26/25 05:45 mupirocin Allergy Unknown Rash Verified 04/26/25 05:45 neomycin Allergy Unknown Rash Verified 04/23/25 17:02 polymyxin B Allergy Unknown Rash Verified 04/23/25 17:02 Quinolones Allergy Unknown Hives Verified 04/23/25 17:02 tetracycline Allergy Unknown Hives Verified 04/23/25 17:02 topiramate Allergy Unknown SOB, Verified 04/23/25 17:02 dizziness aspirin AdvReac Unknown Nosebleeds Verified 04/23/25 17:02 duloxetine AdvReac Unknown Slurred Verified 04/23/25 17:02 speech, memory loss, "drunk" feeling Home Medications Medication Instructions Recorded Confirmed Type Incentive Spirometer #1 ea 03/14/21 04/23/25 Rx vortioxetine 20 mg tablet 20 mg PO BID 05/10/23 04/26/25 History (Trintellix) ascorbic acid (vitamin C) 1,000 mg 1 g PO BID 09/13/23 04/26/25 History tablet (Vitamin C) quetiapine 25 mg tablet (Seroquel) 25 mg PO UD 08/10/24 04/26/25 History levothyroxine 200 mcg tablet 200 mcg PO QAM #90 tabs 09/25/24 04/26/25 Rx magnesium oxide 400 mg PO TID #90 tabs 09/26/24 04/26/25 Rx baclofen 10 mg tablet 10 mg PO HS jaw spasms/neuralgia 11/24/24 04/26/25 Rx #30 tabs aripiprazole 15 mg tablet (Abilify) 10 mg PO QAM 12/20/24 04/26/25 History cholecalciferol (vitamin D3) 50 10,000 unit PO QAM 12/21/24 04/26/25 History mcg (2,000 unit) capsule secukinumab 150 mg/mL subcutaneous 150 mg subcut UD 12/29/24 04/26/25 [facility] 33 #100 ea 01/04/25 04/23/25 Rx gauge (lancets) blood sugar diagnostic (OneTouch 01/04/25 04/23/25 History Ultra Test strips) pen needle, diabetic 32 gauge x #500 ea 01/04/25 04/23/25 Rx 1/4" (UltiCare Pen Needle) dexlansoprazole 60 mg 60 mg PO QAM #90 caps 01/16/25 04/26/25 Rx capsule,biphase delayed release (Dexilant) insulin lispro 200 unit/mL (3 mL) 200 unit subcut DAILY #30 mL 01/31/25 04/26/25 Rx subcutaneous pen (Humalog KwikPen U-200 Insulin) insulin pump cart,auto,BT,G6/L #15 ea 02/08/25 04/23/25 Rx (Omnipod 5 (G6/Lisa 2 Plus) subcutaneous cartridge) insulin pump cartridge,auto #1 ea 02/08/25 04/23/25 Rx dose,BT,G6/L2 with controller subcutaneous (Omnipod 5 Intro Kit(G6/[id number]) subcutaneous cartridge) buspirone 5 mg tablet 5 mg PO TID 02/23/25 04/26/25 History clonazepam 0.5 mg tablet 0.5 mg PO UD 02/23/25 04/26/25 History quetiapine 300 mg tablet (Seroquel) 300 mg PO HS 02/23/25 04/26/25 History riboflavin (vitamin B2) 400 mg 400 mg PO DAILY 30 days #30 tabs 02/28/25 04/26/25 Rx tablet metoprolol succinate 50 mg 50 mg PO HS #90 tabs 03/12/25 04/26/25 Rx tablet,extended release 24 hr (Toprol XL) mecobalamin (vitamin B12) 5,000 5,000 mcg PO QAM 03/14/25 04/26/25 History mcg disintegrating tablet rizatriptan 5 mg tablet 5 mg PO UD 03/14/25 04/26/25 History prednisone 5 mg tablet 5 mg PO DAILY 04/23/25 04/26/25 History spironolactone 50 mg tablet 100 mg PO BID 04/23/25 04/26/25 History triamcinolone acetonide 0.1 % 1 applic topical BID #15 grams 04/23/25 04/26/25 Rx topical ointment clopidogrel 75 mg tablet (Plavix) 75 mg PO HS 04/26/25 04/26/25 History famotidine 40 mg tablet (Pepcid) 40 mg PO BID 04/26/25 04/26/25 History tirzepatide 5 mg/0.5 mL 5 mg subcut Q7D 04/26/25 04/26/25 History subcutaneous pen injector (Kathryn) Past Med/Surg History Problem List (Updated 04/26/25 @ 10:58 by Tristan Zepeda MD) Hyperkalemia Type 2 diabetes mellitus with hyperglycemia Paroxysmal atrial tachycardia Migraine without aura Elevated serum creatinine (Acute) Urge and stress incontinence (Chronic) Bladder wall thickening (Acute) Hypertrophy of both inferior nasal turbinates Food insecurity Low magnesium level Class 3 obesity Uncontrolled type 2 diabetes mellitus with hyperglycemia Loss of protective sensation of skin of foot Neck mass Polyuria Dysgeusia Nasal septal deviation Anosmia Rotator cuff tendinitis Ulnar neuropathy at elbow of right upper extremity Rotator cuff tear arthropathy of right shoulder Ulnar neuropathy of right upper extremity Paresthesia of right upper extremity Multiple thyroid nodules Glenohumeral arthritis Cervical radiculopathy Narrow complex tachycardia Gastroparesis Allergy status to unspecified drugs, medicaments and biological substances current under allergy testing due to multiple allergies. Dr. Rodriguez. Anemia Qkqspps-Camtlrlwk-Annuq syndrome Obstructive sleep apnea Vitamin D deficiency Hypothyroidism Vitamin B12 deficiency Hyperlipidemia Diabetic peripheral neuropathy associated with type 2 diabetes mellitus Hypertension (Acute) Medical History (Updated 04/26/25 @ 10:58 by Tristan Zepeda MD) PSVT (paroxysmal supraventricular tachycardia) Narrow complex tachycardia Urge and stress incontinence Multiple thyroid nodules Low magnesium level Loss of protective sensation of skin of foot Bladder wall thickening Anemia Ruxeoru-Pdfgubykw-Bsnzs syndrome Herpes zoster (01/2025) Completed treatment, left side of breast No open/weeping areas; does have residual "cox" where the shingles lesions were OLENA (acute kidney injury) History of TIA (transient ischemic attack) Patient taking Plavix but unsure of reason [facility] Plav[facility] for history of questionable TIA noted History of supraventricular tachycardia Dysgeusia Cervical radiculopathy Anosmia Acromioclavicular joint arthritis Obesity Ulnar neuropathy at elbow of right upper extremity Rotator cuff tear arthropathy of right shoulder Postural dizziness VERA (obstructive sleep apnea) CPAP + 4L HS Nasal septal deviation Hypothyroidism Hypertension Hyperlipidemia Hx of deep venous thrombosis RLE 30-40 years ago Glenohumeral arthritis Hx of epistaxis Chronic, intermittent issue No current issue Diabetic peripheral neuropathy Chronic sinusitis Chronic kidney disease, stage 3 Asthma (HFpEF) heart failure with preserved ejection fraction Dysphagia Dysphonia Rhinosinusitis Hepatic steatosis Hidradenitis suppurativa Uterine fibroid Trigeminal neuralgia History of pericarditis Possible pericarditis 2021 GERD (gastroesophageal reflux disease) History of colon polyps Pleurisy (03/10/24) Hx Hives "Stress hives" Intermittent issue since 09/2023, eliu HS Restless leg syndrome Sciatica LLE Type 2 diabetes mellitus To start insulin pump therapy 03/15/2025 Seasonal rhinitis Diverticulitis (03/2024) Hx Venous malformation 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 Osteopenia Pulmonary nodule Under surveillance Restrictive lung disease Spinal stenosis Thyroid nodule Under surveillance Generalized anxiety disorder with panic attacks Surgical History Family history of reaction to anesthesia Brother- "heart stopped and brought back" Mother/sister- difficulty waking History of anesthesia reaction Slow to wake History of detached retina repair torn retina, 2 left, 1 right Status post epidural steroid injection Status post trigger finger release total of 3 History of colonoscopy with polypectomy History of esophagogastroduodenoscopy (EGD) History of umbilical hernia repair History of tooth extraction History of bilateral cataract extraction H/O ligation of vein right leg Family History Aunt Breast cancer Uncle Family hx of colon cancer Colorectal cancer Mother Diabetes Family history of diabetes mellitus Heart disease Family history of reaction to anesthesia Hypertension Stroke Father Prostate cancer Cancer Grandfather (Maternal) Myocardial infarction Sister Diabetes Family history of diabetes mellitus Family history of reaction to anesthesia Hypertension Family/Other Family hx of colon cancer Brother Diabetes Family history of reaction to anesthesia Other No family history of bleeding disorder Denies family history of Ovarian cancer Uterine cancer Social History Smoking Status: Former smoker Second Hand Exposure: No; Do You Dip or Chew Tobacco: No; Hx Alcohol Use: Yes Alcohol type: wine Hx Substance Use: No Preferred Language: Thai Communication Ability: Effective Visual Impairment: No Limitations Hearing Ability: Normal File Conversion Operator Required: No Beliefs That Will Affect Care: None marital status: Single Current Living Situation: Alone Current Living Situation Comment: has caregivers that come in current occupational status: disabled How many Children do You have: 0 Feels Safe at Home: Yes Diet: diabetic during the past year weight has: decreased > 10 lbs Seatbelt Use: always Sunscreen Use: Yes Assistive Devices: Cane, CPAP, Glasses, Oxygen - at Night and Walker Review of Systems 2 Review of Systems: Constitutionalno fever or chills ENTno blurred vision, no double vision, no epistaxis, no sore throat Respiratoryno cough, no wheezing, no shortness of breath Cardiacno palpitations, no chest pain, no syncope Beau nausea, vomiting, diarrhea, melena, hematochezia GUno urinary retention, no urinary incontinence, no dysuria, no hematuria Musculoskeletalno joint pain, no muscle tenderness Skin-rash noted in the inguinal region no bruising, no pruritus Neurono isolated weakness, no paresthesia, no weakness Psychno depression, no anxiety Physical Exam 2 Physical Exam: General-alert and oriented x3, no fever, no chills. Obese HEENT-head atraumatic and normocephalic, pupils equal and reactive to light, extraocular muscles intact Neck-no lymphadenopathy or thyromegaly, trachea midline Chest-clear to auscultation. No rales, wheezing or rhonchi Cardiac-regular rate and rhythm, normal S1 and S2 Abdomen-normal bowel sounds, no hepatosplenomegaly Extremities-no cyanosis, clubbing, or edema Neuro-cranial nerves II through XII intact, motor and sensory function within normal limits, strength symmetrical, no focal deficits Psych-normal affect, normal mood Results & Data Results & Data Vital Signs (Past 12 Hours) Vital Signs Temp Pulse Resp BP Pulse Ox O2 Del Method 04/26/25 09:09 85 17 140/84 04/26/25 08:51 83 20 140/84 04/26/25 08:30 144/81 H 04/26/25 08:24 77 23 144/81 H 04/26/25 08:20 76 04/26/25 08:09 81 20 04/26/25 07:54 74 23 130/59 L 95 04/26/25 07:12 36.6 C 83 20 124/72 96 Room Air Laboratory Results 04/26/25 07:29 04/26/25 07:29 Code Status & VTE Plan Code Status Full code PG Care Time/CCT Total # of Minutes Spent Total Time Spent with Patient: Total time spent is greater than 50% in coordination of care (as documented) at patient's floor/unit and/or counseling patient: Coding Level of Care Code 86983 INT INP/OBS CARE 3/75MIN Diagnoses Type 2 diabetes mellitus with hyperglycemia E11.65 Hyperkalemia E87.5 PSVT (paroxysmal supraventricular tachycardia) I47.10 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
[2025-04-26] MEDS ORDERED: NovoLIN-N (NPH) PER UNIT CHARGE SQ ONE (11:35)
[2025-04-26] MEDS: NovoLIN-N (NPH) PER UNIT CHARGE SQ ONE (11:49)
[2025-04-26] MEDS ORDERED: GLUCOSE 10 TAB/TUBE PO PRN (13:42)
[2025-04-26] MEDS ORDERED: DEXTROSE 50% 50 ML SYRINGE IV PRN (13:42)
[2025-04-26] MEDS ORDERED: CARBOHYDRATES FOR HYPOGLYCEMIA PO PRN (13:42)
[2025-04-26] MEDS ORDERED: GLUCAGON FOR INJ 1 MG VIAL SQ PRN (13:42)
[2025-04-26] MEDS ORDERED: GLUCOSE 40% GEL 15 GM TUBE PO PRN (13:42)
[2025-04-26] MEDS ORDERED: ONDANSETRON INJ 2 MG/ML 2 ML VIAL IV PRN (13:42)
[2025-04-26] MEDS: INSULIN ASPART PER UNIT CHARGE SC SCH (14:25)
[2025-04-26] MEDS: MAGNESIUM OXIDE 400 MG TAB PO SCH (17:33)
[2025-04-26] MEDS: busPIRone 5 MG TAB PO SCH (17:34)
[2025-04-26] MEDS: INSULIN HUMAN NPH SC SCH ×2 (17:34→18:19)
[2025-04-26] MEDS: INSULIN ASPART PER UNIT CHARGE SC STA ×2 (19:36→21:11)
[2025-04-26] MEDS: ACETAMINOPHEN 325 MG TAB PO PRN (19:49)
[2025-04-26] MEDS: CLOPIDOGREL BISULFATE 75 MG TAB PO SCH (21:12)
[2025-04-26] MEDS: ASCORBIC ACID 500 MG TAB PO SCH (21:12)
[2025-04-26] MEDS: METOPROLOL SUCC 50MG EXT REL TAB PO SCH (21:13)
[2025-04-26] MEDS: FAMOTIDINE 40 MG TABLET PO SCH (21:13)
[2025-04-26] MEDS: SPIRONOLACTONE 100 MG TAB PO SCH (21:13)
[2025-04-26] MEDS: VORTIOXETINE HYDROBROMIDE 20 MG TAB PO SCH (22:08)
[2025-04-27] MEDS: LEVOTHYROXINE SODIUM 200 MCG TABLET PO SCH (05:44)
[2025-04-27 07:05] LABS: Anion Gap 7.0 (3-11); Blood Urea Nitrogen 33.0 mg/dl (6-23); Calcium 9.2 mg/dl (8.6-10.3); Carbon Dioxide 25.0 mmol/L (21-32); Chloride 106.0 mmol/L (98-107); Creatinine Clr Calc Pharmacy 61.3 ml/min; Glucose 108.0 mg/dl (70-99(Fasting)); Potassium 4.2 mmol/L (3.5-5.1); Sodium 138.0 mmol/L (136-145)
[2025-04-27] MEDS ORDERED: LEVOTHYROXINE SODIUM 200 MCG TABLET PO SCH (09:00)
[2025-04-27 11:34] VITALS: BP 143/84; PULSE 82; RESP 19; TEMP 98.1; O2SAT 96
--- NOTE | 2025-04-27 13:22 | Discharge Summary ---
Discharge Summary Date of Service April 27, 2025 Principal Dx & Hospital Course #1 = Principal Diagnosis (1) Type 2 diabetes mellitus with hyperglycemia: The patient was recently started on prednisone therapy for hidradenitis which probably aggravated her glucose levels. Steroid therapy has been discontinued. She was recently started on an insulin pump which has been discontinued. She was treated with NPH insulin twice daily while hospitalized along with sliding scale coverage and her glucose is 108 this morning, April 27. She states she has all of her previous medications for diabetic management which she will resume. Insulin pump has been ineffective and will be discontinued. She was treated while hospitalized with sliding scale coverage. ADA diet (2) Hyperkalemia: She was administered intravenous bicarbonate, insulin, calcium gluconate in the ED. Potassium level is now normal. (3) PSVT (paroxysmal supraventricular tachycardia): Currently stable in normal sinus rhythm. Telemetry. Continue current medical management (4) Hypothyroidism: Stable. Continue current thyroid replacement therapy Plan Home today, April 27 Admission HPI Per Admitting Provider 64-year-old white female with a history of insulin-dependent diabetes. She was recently switched to an insulin pump but also placed on oral prednisone for hidradenitis by dermatology. She presented today in the outpatient setting for an elective cystoscopy and was found to have glucose greater than 700 and hyperkalemia. She is subsequently placed in observation for further treatment. She denies any associated fever or chills. In the ED she was given bicarbonate, insulin, and calcium gluconate for the potassium level of 6.6. Potassium level will be repeated later today. Discharge Exam General-alert and oriented x3, no fever, no chills. Obese HEENT-head atraumatic and normocephalic, pupils equal and reactive to light, extraocular muscles intact Neck-no lymphadenopathy or thyromegaly, trachea midline Chest-clear to auscultation. No rales, wheezing or rhonchi Cardiac-regular rate and rhythm, normal S1 and S2 Abdomen-normal bowel sounds, no hepatosplenomegaly Extremities-no cyanosis, clubbing, or edema Neuro-cranial nerves II through XII intact, motor and sensory function within normal limits, strength symmetrical, no focal deficits Psych-normal affect, normal mood Discharge Plan Discharge Items Patient Disposition: Home - Self-Care Reason For Visit: HYPERGLYCEMIA,HYPERKALEMIA Discharge Diagnosis: Uncontrolled type 2 diabetes with hyperglycemia, hyperkalemia Condition on Discharge: Good Activity: Resume your previous activity Non-emergency contact: Primary Care Provider Call non-emergency contact if: your symptoms worsen Follow-up/Referrals: Pro,Ethan Lock MD [Primary Care Provider] - Diet: Carb Consistent or DM2 Addtl Attending Provider Instructions: Resume your previous diabetic management before you started the insulin pump. See your primary care provider or proofer as soon as possible for further instructions. Stop taking prednisone. Pending Studies at Discharge: No Stand-Alone Forms: My [facility] [employer], Smoking Cessation Medications and DC Order Prescriptions: Continued levothyroxine 200 mcg tablet 200 mcg PO QAM Qty: 90 1RF baclofen 10 mg tablet 10 mg PO HS Qty: 30 5RF cholecalciferol (vitamin D3) 50 mcg (2,000 unit) capsule 10,000 unit PO QAM Rx Instructions: otc unable to verify dexlansoprazole [Dexilant] 60 mg capsule,biphase delayed releas 60 mg PO QAM Qty: 90 3RF Humalog KwikPen Insulin 200 unit/mL (3 mL) insulin pen 200 unit subcut DAILY MDD 200 Qty: 30 3RF Patient Comments: set up to use Omnipod on 03/15/2025 Rx Instructions: To be used in the Omnipod pump (DME) Omnipod 5 (G6/Chuckie 2 Plus) Cartridge See Rx Instructions .Route Qty: 15 11RF Rx Instructions: To change every 2 days; to be used with Chuckie 2+ (DME) Omnipod 5 Intro(G6/[id number]) Cartridge See Rx Instructions .Route Qty: 1 0RF Rx Instructions: To be used with the Chuckie 2+; change pod every 2 days metoprolol succinate [Toprol XL] 50 mg tablet extended release 24 hr 50 mg PO HS Qty: 90 3RF (DME) Incentive Spirometer Misc See Rx Instructions .MEDSUPPLY Qty: 1 0RF Rx Instructions: As directed quetiapine [Seroquel] 25 mg tablet 25 mg PO BID Patient Comments: 25 mg orally in the morning and 25mg by mouth at noon Rx Instructions: 25 mg orally in the morning and 25mg by mouth at noon (DME) OneTouch Ultra Test Strip See Rx Instructions .Route Rx Instructions: As directed (DME) lancets [OneTouch Delica Plus Lancet] 33 gauge misc See Rx Instructions .ROUTE .MEDSUPPLY Qty: 100 3RF Rx Instructions: test 1 time daily with Dexcom (DME) pen needle, diabetic [UltiCare Pen Needle] 32 gauge x 1/4" needle See Rx Instructions .Route Qty: 500 3RF Rx Instructions: use 6 times per day riboflavin (vitamin B2) 400 mg tablet 400 mg PO DAILY 30 Days Qty: 30 3RF Cosentyx Pen 150 mg/mL pen injector 150 mg subcut MONTHLY Patient Comments: "I have not taken that yet. Its in my refrigerator." Rx Instructions: MONTH triamcinolone acetonide 0.1 % ointment 1 applic topical BID Qty: 15 1RF magnesium oxide 400 mg magnesium tablet 400 mg PO TID Qty: 90 11RF Rx Instructions: on hold per list from pharmacy Trintellix 20 mg tablet 20 mg PO BID ascorbic acid (vitamin C) [Vitamin C] 1,000 mg Tablet 1 g PO BID Rx Instructions: otc unable to verify atorvastatin 80 mg tablet 80 mg PO HS ropinirole 2 mg tablet 2 mg PO HS metformin 500 mg tablet extended release 24 hr 1,000 mg PO BID aripiprazole 10 mg tablet 0 mg PO QAM Patient Comments: Per pt she is unsure if she takes 10mg daily or 15mg daily rizatriptan 5 mg tablet 5 mg PO UD Rx Instructions: take 1 tablet at onset of headache; if no relief, may repeat 1 tablet after at least 2 hrs PO mecobalamin (vitamin B12) 5,000 mcg tablet,disintegrating 5,000 mcg PO QAM Rx Instructions: otc unable to verify famotidine [Pepcid] 40 mg tablet 40 mg PO BID clopidogrel [Plavix] 75 mg tablet 75 mg PO HS Mounjaro 5 mg/0.5 mL pen injector 5 mg subcut Q7D Patient Comments: THURSDAYS Rx Instructions: buspirone 5 mg tablet 5 mg PO TID quetiapine [Seroquel] 300 mg tablet 300 mg PO HS clonazepam 0.5 mg tablet 0.5 mg PO HS MDD 0.75MG/24HR Rx Instructions: 1 tab po hs. May take an additional 1/2 tab every 24 hours prn situational anxiety spironolactone 50 mg tablet 100 mg PO BID Discontinued prednisone 5 mg tablet 5 mg PO DAILY Discharge Orders: Discharge Order (Routine); Ordered 04/27/25 Ordered By: Tristan Zepeda Admission Data Admit Date/Time: 04/26/25 10:44 Attending Provider: Tristan Zepeda Admit Provider: Tristan Zepeda Primary Care Provider: Ethan Karimi Other Providers: Tristan Weinberg Hospital Stay Data Consultations 04/26/25 08:53 ED Decision to Admit Stat Pending Results Patient Have Any Pending Studies at Discharge: No Discharge Instructions Given to Patient (Per Discharging Provider) Resume your previous diabetic management before you started the insulin pump. See your primary care provider or proofer as soon as possible for further instructions. Stop taking prednisone. 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
[2025-04-27] MEDS ORDERED: INSULIN HUMAN NPH SC SCH (17:00)
--- NOTE | 2025-04-28 05:40 | Electrocardiogram Report ---
Test Reason : Blood Pressure : */* mmHG Vent. Rate : 77 BPM Atrial Rate : 77 BPM P-R Int : 142 ms QRS Dur : 94 ms QT Int : 384 ms P-R-T Axes : 31 -15 27 degrees QTcB Int : 434 ms Normal sinus rhythm Cannot rule out Anterior infarct (cited on or before 23-Feb-2025) Abnormal ECG When compared with ECG of 23-Feb-2025 11:12, No significant change was found Confirmed by Rafal Pimentel ([id number]) on 04/28/2025 5:39:55 AM Referred By: Confirmed By: Rafal Pimentel
== END 2025-04-27 14:24 | disposition home or self-care (01) ==
LOC: 2N 07:21 → ED 07:21 → 2N 13:18